=== PATIENT | female | born 1970 | race Caucasian/White ===

== ENCOUNTER 2019-07-16 10:38 | Outpatient (CLI) | payer SELFPAY ==
[2019-07-17 21:05] LABS: COVID-19 RT-PCR UVMMC Result Negative (Negative)
== END 2019-07-16 10:58 ==
PROVIDERS: PCP Nurse Practitioner; Visit Provider Family Medicine
DX: R05 Cough (principal); Z03.818 Encounter for observation for suspected exposure to other biological agents ruled out
CPT/HCPCS: U0003

== ENCOUNTER 2019-11-26 21:39 | Outpatient (REF) | payer SELFPAY ==
[2019-11-29 00:07] LABS: COVID-19 RT-PCR Result NEGATIVE (Negative)
== END 2019-11-26 21:59 ==
LOC: NCHCN 21:39
PROVIDERS: PCP Nurse Practitioner; Visit Provider Family Medicine
DX: B34.9 Viral infection, unspecified (principal); Z11.59 Encounter for screening for other viral diseases
CPT/HCPCS: U0003

== ENCOUNTER 2020-04-29 04:02 | Outpatient (CLI) | payer MEDICAID, SELFPAY ==
[2020-04-29 08:57] LABS: Abs Immature Grans 0.04 10^3/uL (0.0-0.06); Absolute Basophil Count 0.09 10^3/uL (0.0-0.2); Absolute Eosinophil Count 0.34 10^3/uL (0.0-0.7); Absolute Lymphocyte Count 1.48 10^3/uL (1.2-3.4); Absolute Neutrophil Count 5.13 10^3/uL (1.2-6.7); Basophils % 1.2; Eosinophils % 4.5; HCT 34.1 % (36.0-46.0); HGB 9.9 g/dL (11.2-15.7); Immature Grans % 0.5; Lymphocytes % 19.5; MCH 24.7 pg (27.0-33.0); MPV 9.4 fL (8.0-11.0); Monocytes % 6.6; Neutrophils % 67.7; Nucleated RBC 0 %; RBC 4.01 10^6/uL (3.93-5.22); RDW 23.4 % (11.7-14.6); RDW-SD 72.6 fL; WBC 7.58 10^3/uL (4.4-10.8)
[2020-04-29 09:13] LABS: Hemoglobin A1C 5.8 % (<5.7)
[2020-04-29 09:20] LABS: Anisocytosis 2+; Diff Comment Diff Reviewed; Hypochromasia 1+; Platelet Count 384 10^3/uL (130-400); Polychromasia Present
[2020-04-29 09:21] LABS: Poikilocytes 1+
[2020-04-29 09:47] LABS: Total Iron Binding Capacity 435 ug/dL (250-450)
[2020-04-29 10:19] LABS: ALT 17 U/L (14-59); AST 10 U/L (15-37); Albumin 3.4 g/dL (3.4-5.0); Alkaline Phosphatase 80 U/L (46-116); Anion Gap 9.3 mmol/L (3-11); BUN 9 mg/dL (7-18); Bilirubin, Total 0.2 mg/dL (0.2-1.0); CO2 26.7 mmol/L (21.0-32.0); CREATININE 0.7 mg/dL (0.55-1.02); Calculated LDL 165 mg/dL (<100); Chloride 101 mmol/L (98-107); Cholesterol 228 mg/dL (<200); Ferritin 28 ng/mL (8-252); Glucose 104 mg/dL (74-106); HDL Cholesterol 43 mg/dL (40-60); Sodium 137 mmol/L (136-145); TSH (W/Ref FT4) 2.83 uIU/mL (0.36-3.74); Total Protein 7.2 g/dL (6.4-8.2); Triglyceride 103 mg/dL (<150); Vitamin B12 414 pg/mL (193-986)
== END 2020-04-29 04:03 | disposition home or self-care (01) ==
LOC: LBO 04:02
PROVIDERS: PCP Nurse Practitioner; Visit Provider Nurse Practitioner
DX: D64.9 Anemia, unspecified (principal); I10 Essential (primary) hypertension; R73.01 Impaired fasting glucose; E66.9 Obesity, unspecified; N93.8 Other specified abnormal uterine and vaginal bleeding
CPT/HCPCS: 36415; 80053; 80061; 82607; 82728; 83036; 83550; 84443; 85025

== ENCOUNTER 2020-05-11 03:24 | Outpatient (CLI) | payer MEDICAID, SELFPAY ==
[2020-05-12 14:30] LABS: COVID-19 RT-PCR UVMMC Result Positive (Negative)
== END 2020-05-11 03:25 | disposition home or self-care (01) ==
LOC: LBO 03:25
PROVIDERS: PCP Nurse Practitioner; Visit Provider Nurse Practitioner
DX: Z20.822 Contact with and (suspected) exposure to COVID-19 (principal)
CPT/HCPCS: U0003

== ENCOUNTER 2021-03-16 10:13 | Emergency (ER) | payer MEDICAID, SELFPAY ==
[2021-03-16] VITALS (16 sets, daily range): BP systolic 131–194; BP diastolic 96–106; PULSE 81–102; RESP 14–29; TEMP 37–37.5; O2SAT 92–100
--- NOTE | 2021-03-16 10:15 | RT.EKG_ITS ---
APPROVED REPORT Exam: Resting ECG Reason for Exam: edema Patient Location: E HR:92 bpm ECG Measurements Heart Rate 92 AXIS SC 165 P 65 QRSd 93 QRS 57 QT 404 T 77 QTc 500 Conclusion Sinus rhythm...normal P axis Nonspecific T abnrm, anterolateral leads...T <-0.10mV, I aVL V2-V6
[2021-03-16] MEDS: Albuterol/Ipratropium 3 ML UPD VIAL (10:30)
--- NOTE | 2021-03-16 10:30 | DI.RAD_ITS ---
Exam(s) XR PORTABLE CHEST AP EXAM: XR PORTABLE CHEST AP CLINICAL HISTORY: cough, congestion TECHNIQUE: 2D digital imaging was performed of the chest. One image was obtained. An AP view was ob tained. COMPARISON: CR PORTABLE CHEST ONE VIEW from 08/02/2017 FINDINGS: MEDIASTINUM: Normal. HEART: Normal. PULMONARY VASCULATURE: Normal. LUNGS: Clear. PLEURAL SPACE: No pleural effusion or pneumothorax. BONE:Within normal limits for the patient's age. OTHER FINDINGS:Normal. IMPRESSION: No acute pulmonary findings. DATA REPOSITORY: RADIATION DOSE DELIVERED:
--- NOTE | 2021-03-16 10:39 | ED.GENADUL_ITS ---
Discharge Plan Disposition Patient Disposition: HOME Condition: Improving Discharge Details Clinical Impression: Peripheral edema Primary Care Provider: Paula Barboza ED Provider: Isiah Gong Home Meds and New Rx's Prescriptions: New furosemide 20 mg tablet 20 mg PO Q OTHER DAY Qty: 3 RF: 0 (DME) nebulizers Misc See Rx Instructions .ROUTE .MEDSUPPLY Qty: 1 RF: 0 albuterol sulfate 5 mg/mL solution for nebulization 5 mg inhalation Q6H PRNQty: 20 RF: 0 Continued albuterol sulfate [ProAir HFA] 90 mcg/actuation HFA aerosol inhaler 2 puff Inhalation Q4H PRN Qty: 18 RF: 12 citalopram 40 mg tablet 40 mg PO DAILY Qty: 90 RF: 3 lisinopril 20 mg tablet 20 mg PO DAILY Qty: 90 RF: 3 cetirizine 10 mg tablet 10 mg PO DAILY PRN (Reason: allergy symptoms) Qty: 30 RF: 3 quetiapine 50 mg tablet See Rx Instructions PO TID PRN (Reason: withdrawal symptoms) Qty: 90 RF: 0 clobetasol-emollient 15 GM cream 1 applic Topical DAILY PRNQty: 60 RF: 2 iron 18 MG tablet 18 mg PO DAILY RF: 0 propranolol 20 mg tablet 20 mg PO BID Qty: 180 RF: 0 quetiapine 100 mg tablet 100 mg PO QHS Qty: 90 RF: 0 (DME) POCKET CHAMBER Spacer See Rx Instructions .ROUTE .MEDSUPPLY Qty: 1 RF: 0 Discharge Instructions Additional Instructions: Your work-up in the emergency department included blood work, EKG, chest x-ray, and CT scan of the chest and abdomen. We discussed admission to the hospital which you have deferred. Return at any time for reevaluation. Take medications as prescribed. I will prescribe you 3 doses of furosemide/Lasix be taken every other day. You should increase potassium- containing foods in the diet such as bananas, strawberries, tree nuts including cashews and almonds as these will offset a slight loss of potassium from diuresis. Elevate the legs above the level of the heart while at rest at home. We will ask our care management team to arrange a follow-up for you with Paula Barboza in clinic. Please return to the emergency room for any acute concerns. Medical Decision Making 50-year-old female presents from home on referral from primary care. She has had 1 week of cough that she states is chronic, new feeling of congestion, shortness of breath, that is associated with symmetric lower extremity edema over 1 week's time and 20 pound weight gain. She denies any fever, she has not had chest pain. She arrives to ER hypertensive, or resting heart rate approximately 100, oxygenating 92% on room air with coarse rales out the lung field. Differential includes pulmonary edema/fluid overload, renal failure, AR, PE, pneumonitis. Patient IV access established, she was placed on a manager cardiac cath, screening EKG obtained she is referred for laboratories and portable chest x-ray. Chest x-ray per Dr. Lemus shows no acute disease. Patient's diagnostic laboratories are concerning. She shows evidence of liver congestion with AST 124, ALT 90, total of 1.3. Her BNP is 6000, troponin negative. D-dimer is elevated. Renal function normal. Given my concern for acute cor pulmonale, CT of the chest obtained to rule out PE ordered. This shows no evidence of acute finding. Please see the formal report. The patient did also have left knee x-ray which was unremarkable Discussed with the patient admission for further work-up of new onset peripheral edema. She declines this at this time. I do feel she demonstrates decision- making capacity and acknowledges the risk of worsening condition and possible . Patient given Lasix and observed in the ER on a manager cardiac cath with repeat troponin and chest x-ray obtained. Patient with positive diuresis. Repeat troponin negative. Patient again offered admission which she declines. I will place her on q. OD Lasix x3 doses. She will elevate the legs above level heart. We will ask career development counselor to arrange a follow-up for her in primary care clinic. I do feel she ought to have a follow-up echocardiogram. She understands indications to return to the ER HPI General Mode of arrival: ambulatory . Date/Time Provider Initiated Documentation: 03/16/21 10:19 . Limitations to Documentation: no limitations . Information obtained by: patient . History of Present Illness 50 year old F presents to the emergency department with the chief complaint of Short of breath, leg edema, 20 pound weight gain in 1 week, described as moderate, Quality is described as constant, and is localized to the chest. Patient reports no radiation. Patient started experiencing this day(s) and it has been constant. No relieving factors improve symptom(s), No exacerbating factors reported . Patient notes cough, shortness of breath and other (Bilateral lower extremity edema and weight gain); denies chest pain. Patient did receive the following treatments prior to arrival, none Related Data Home Medications Medication Instructions Recorded Confirmed clobetasol-emollient 1 applic TOPICAL DAILY PRN #60 gm 12/08/16 iron 18 mg PO DAILY 05/25/17 albuterol sulfate 90 mcg/actuation 2 puff INHALATION Q4H PRN #18 g 04/14/20 04/14/20 aerosol inhaler cetirizine 10 mg tablet 10 mg PO DAILY PRN #30 tab 04/14/20 04/14/20 citalopram 40 mg tablet 40 mg PO DAILY #90 tab 04/14/20 04/14/20 lisinopril 20 mg tablet 20 mg PO DAILY #90 tab-cap 04/14/20 04/14/20 quetiapine 50 mg tablet See Rx Instructions PO TID PRN #90 06/08/20 06/08/20 tab propranolol 20 mg tablet 20 mg PO BID #180 tab 08/19/20 quetiapine 100 mg tablet 100 mg PO QHS #90 tab 08/19/20 inhalational spacing device #1 ea 09/28/20 albuterol sulfate 5 mg INHALATION Q6H PRN #20 ml 03/16/21 furosemide 20 mg PO Q OTHER DAY #3 tab 03/16/21 nebulizers #1 ea 03/16/21 Previous Rx's Medication Instructions Recorded albuterol sulfate 90 mcg/actuation 2 puff INHALATION Q4H PRN #18 g 04/14/20 aerosol inhaler cetirizine 10 mg tablet 10 mg PO DAILY PRN #30 tab 04/14/20 citalopram 40 mg tablet 40 mg PO DAILY #90 tab 04/14/20 lisinopril 20 mg tablet 20 mg PO DAILY #90 tab-cap 04/14/20 quetiapine 50 mg tablet See Rx Instructions PO TID PRN #90 06/08/20 tab propranolol 20 mg tablet 20 mg PO BID #180 tab 08/19/20 quetiapine 100 mg tablet 100 mg PO QHS #90 tab 08/19/20 inhalational spacing device #1 ea 09/28/20 albuterol sulfate 5 mg INHALATION Q6H PRN #20 ml 03/16/21 furosemide 20 mg PO Q OTHER DAY #3 tab 03/16/21 nebulizers #1 ea 03/16/21 Allergies Allergy/AdvReac Type Severity Reaction Status Date / Time oxycodone AdvReac Unknown TERRIBLE Verified 03/16/21 11:13 DREAMS General Stated Complaint: SOB ALISTAIR: 2 Review of Systems Narrative: States she has a chronic cough from smoking that is unchanged. Albuterol seems to not be helping at home. Immunized against COVID-19 x3. Den ies chest pain. No recent illness. Reports twisting her left knee with resultant swelling. See HPI. 8 systems reviewed and otherwise negative PFSH All Active Problems (Updated 03/16/21 @ 13:29 by Isiah Gong MD) Peripheral edema (Acute) Heavy menses (Acute) Encounter for screening colonoscopy (Acute) Anemia (Chronic) Anxiety (Chronic) DUB (dysfunctional uterine bleeding) (Acute) HTN (hypertension), benign (Acute) Depression (Chronic 04/03/15) Sertaline in the past with good relief of sx but then developed intolerable adverse rxns (nausea, flushing) Started on venlafaxine 03/2015 PHQ9 score = 9, indicating mild depression 03/2015 Chronic pain (Acute 02/20/09) chronic tramadol rx, back pain, sciatica despite LS surg 2009. Impaired fasting blood sugar (Acute 08/01/05) Obesity, unspecified (Acute 05/31/11) Atypical squamous cells of undetermined significance (ASC-US) on cervical Pap smear (Acute 08/05/09) ASCUS 08/05/09; 05/31/2011 Spinal stenosis of lumbar region (Acute 01/11/10) LS spine surg; Dr Sebastian Walker Tobacco dependence (Acute 08/01/05) Medical History Spinal stenosis Lumbar region Tobacco use disorder Surgical History Back surgery L5-S1 decompression 2009 Family History Mother , lung cancer at age 50. No problems noted. Father , MVA No problems noted. Other Lung cancer Social History Smoking risk assessment performed?: No Drug use: Never Substance use type: does not use Do you feel safe at home: Yes Do you feel safe in your relationship?: Yes Exam Narrative Exam Narrative: GEN: awake, alert, oriented 3. Pleasant, well groomed, interactive. HEAD: Normocephalic, atraumatic ENT: Mucous membranes moist, oropharynx unremarkable, External ear exam unremarkable EYES: PERRL, EOMI NECK: Full ROM, no JOSE ANTONIO, no menigismus CHEST/RESP: Nontender, coarse rales throughout CARDIOVASCULAR: Regular and borderline tachycardia, no murmur, rub marina. 2+ Rad pulse bilateral ABDOMEN: Soft, nontender, no mass. +Bowel sounds EXT: Full ROM, 2-3+ tense edema bilateral lower extremity Neuro: Grossly normal neurologic exam, conversant, interactive. Psych: Speech fluent, thoughts congruent, affect normal Course Vital Signs Vital signs: Vital Signs Temperature 37.5 C 03/16/21 10:16 Pulse 102 H 03/16/21 10:16 Respiratory Rate 22 03/16/21 10:16 Blood Pressure 194/105 H 03/16/21 10:16 Pulse Oximetry 92 03/16/21 10:16 Temperature 37.5 C 03/16/21 10:16 Temperature Source Temporal Artery Scan 03/16/21 10:16 Pulse 102 H 03/16/21 10:16 Respiratory Rate 22 03/16/21 10:30 Blood Pressure 194/105 H 03/16/21 10:16 Blood Pressure Position Sitting 03/16/21 10:16 Pulse Oximetry 92 03/16/21 10:30 Oxygen Delivery Method Room Air 03/16/21 10:16 Oxygen Flow Rate 0 03/16/21 10:16 Pain Level 9 03/16/21 10:16
[2021-03-16 10:59] LABS: Source Nasopharynx
[2021-03-16 11:00] LABS: Abs Immature Grans 0.08 10^3/uL (0.0-0.06); Absolute Basophil Count 0.06 10^3/uL (0.0-0.2); Absolute Eosinophil Count 0.17 10^3/uL (0.0-0.7); Absolute Lymphocyte Count 1.04 10^3/uL (1.2-3.4); Absolute Monocyte Count 0.82 10^3/uL (0.1-0.8); Absolute Neutrophil Count 7.68 10^3/uL (1.2-6.7); Basophils % 0.6; Eosinophils % 1.7; HCT 31.7 % (36.0-46.0); HGB 9.4 g/dL (11.2-15.7); Immature Grans % 0.8; Lymphocytes % 10.6; MCH 29.2 pg (27.0-33.0); MCHC 29.7 % (32.0-36.0); MCV 98.4 fL (80-95); Monocytes % 8.3; Nucleated RBC 0 %; Platelet Count 381 10^3/uL (130-400); RBC 3.22 10^6/uL (3.93-5.22); RDW 19.2 % (11.7-14.6); WBC 9.85 10^3/uL (4.4-10.8)
[2021-03-16 11:20] LABS: ALT 90 U/L (14-59); AST 124 U/L (15-37); Alkaline Phosphatase 149 U/L (46-116); Anion Gap 7.1 mmol/L (3-11); BUN 15 mg/dL (7-18); Bilirubin, Total 1.3 mg/dL (0.2-1.0); CO2 31.9 mmol/L (21.0-32.0); CREATININE 0.6 mg/dL (0.55-1.02); Calcium 8.2 mg/dL (8.5-10.1); Chloride 100 mmol/L (98-107); Glucose 119 mg/dL (74-106); Magnesium 1.3 mg/dL (1.8-2.4); NT-proBNP 6014 pg/mL (<300); Potassium 3.5 mmol/L (3.5-5.1); Sodium 139 mmol/L (136-145); Total Protein 7.6 g/dL (6.4-8.2); Troponin I < 50 ng/L (<or=60)
--- NOTE | 2021-03-16 11:30 | DI.CT_ITS ---
Exam(s) CT CHEST PE ABD PELVIS W EXAM: CT CHEST PE ABD PELVIS W CLINICAL HISTORY: Acute R heart failure, SOB, elev liver enzymes. TECHNIQUE: Imaging Protocol: Axial CT angiography was performed with multi-slice acquisition and mu lti-planar and/or 3D reconstructions. CONTRAST MATERIAL: Intravenous: Omnipaque 350 Contrast volume:77 mL COMPARISON: CT ABD PELVIS WITH CONTRAST from 07/09/2010 FINDINGS: CHEST: Tracheobronchial tree: Patent where visualized. Pulmonary parenchyma: No consolidation or dominant measurable mass. No architectural distortion. Pulmonary Arteries: No evidence of filling defect to suggest pulmonary emboli. Mediastinum and Richelle: No dominant adenopathy or fluid collection. The esophagus is unremarkable. Visualized thyroid gland: Unremarkable. Pleura: No effusion or pneumothorax. Heart: The heart is not dilated. Mild coronary artery calcification. No pericardial effusion. Aorta: Thoracic aorta non-dilated. No evidence of dissection. Bones: Within normal limits for the patient's age. Soft tissues: Unremarkable. ABDOMEN: Liver: There is diffuse fatty infiltration of the liver. No measurable mass. The liver measures 19 c m long. Portal, Superior Mesenteric, and Splenic Veins: Unremarkable. Gallbladder and Biliary Tract: No radiodense calculus or dilation. Pancreas: Normal density, no abnormal calcifications or inflammatory process. Spleen: Normal. Adrenals: No masses seen. Kidneys: Normal size, contour and axis. No radiodense stones or obstructive uropathy. No masses seen. Abdominal Aorta: Abdominal portion non-dilated. Atherosclerosis. Bowel: No obstruction or bowel wall thickening. Appendix is unremarkable. Peritoneal Cavity: No ascites, collection or mesenteric inflammatory response. No free air. Lymph Nodes: Within normal limits. Bones: Within normal limits for the patient's age. Soft Tissues: Unremarkable. PELVIS: Bladder: Symmetric distention, no gross wall thickening. Reproductive Organs: Uterine masses are seen including a 2.9 x 2.6 cm mass arising from the fundus of the uterus. These are most suggestive of uterine fibroids. Lymph Nodes: Within normal limits. Bones: Within normal limits. IMPRESSION: 1. No evidence pulmonary embolism, thoracic aortic dissection or aneurysm. 2. No acute pulmonary process. 3. No acute abdominal or pelvic process. 4. Results of this exam have been verbally communicated with provider. RADIATION DOSE DELIVERED: 1,879.89mGy.cm Total DLP DATA REPOSITORY: All CT scans at this facility are submitted to the National Radiology Data Registry (NRDR) Dose Index Registry (DIR) with the [employer] ([employer]). RADIATION OPTIMIZATION: All CT scans at this facility use at least one of these dose optimization te chniques: automated exposure control; mA and/or kV adjustment per patient size (includes targeted exa ms where dose is matched to clinical indication); or iterative reconstruction.
[2021-03-16 11:41] LABS: D-Dimer 582 ng/mlFEU (<500)
[2021-03-16 12:00] LABS: COVID-19 PCR Negative (Negative); Influenza A PCR Negative (Negative); Influenza B PCR Negative (Negative); RSV PCR Negative (Negative)
[2021-03-16] MEDS: MAGNESIUM SULFATE 2 GM/50 ML BAG IVPB (12:25)
[2021-03-16] MEDS: Omnipaque 350 MG/ML 100 ML BTL IJ (13:02)
--- NOTE | 2021-03-16 13:15 | RT.EKG_ITS ---
APPROVED REPORT Exam: Resting ECG Reason for Exam: 2nd ekg Patient Location: E HR:93 bpm ECG Measurements Heart Rate 93 AXIS MI 132 P -4 QRSd 97 QRS 53 QT 414 T 76 QTc 514 Conclusion Sinus rhythm...normal P axis, V-rate 60- 99 Nonspecific T abnrm, anterolateral leads...T <-0.10mV, I aVL V2-V6 Prolonged QT interval...QTc >510mS
--- NOTE | 2021-03-16 13:24 | DI.RAD_ITS ---
Exam(s) XR KNEE LT 3V AP,LAT,ACE EXAM: XR KNEE LT 3V AP,LAT,ACE CLINICAL HISTORY: pain after twisting. TECHNIQUE: 2D digital imaging was performed of the left knee. Four images were obtained. AP, PA an d lateral views were obtained. COMPARISON: No exams were available for comparison FINDINGS: BONES: No acute fracture is present. No bony destructive lesion is seen. JOINTS: The knee is normally aligned. No joint effusion is seen. SOFT TISSUE: Mild generalized soft tissue swelling around the knee. IMPRESSION: 1. No acute fracture or dislocation. 2. Soft tissue swelling around the knee. DATA REPOSITORY: RADIATION DOSE DELIVERED:
[2021-03-16] MEDS: Furosemide 20 MG/2 ML VIAL IVP (13:45)
[2021-03-16 14:23] LABS: Troponin I < 50 ng/L (<or=60)
--- NOTE | 2021-03-16 18:21 | NUR.NOTE ---
Nursing Note: referrl to cm for pcp follow up.
== END 2021-03-16 15:10 | disposition home or self-care (01) ==
PROVIDERS: Emergency Provider Emergency Medicine; PCP Nurse Practitioner
DX: R60.0 Localized edema (principal); R05.3 Chronic cough; R06.02 Shortness of breath; R63.5 Abnormal weight gain; Z20.822 Contact with and (suspected) exposure to COVID-19; M25.562 Pain in left knee
CPT/HCPCS: 36415; 71275; 73562; 74177; 80053; 87637; 93005; 94640; 96374; 96375; 99284; 99285; 71045; 83735; 83880; 84484; 85025; 85379; 93010; J1941; J3490; J7620

== ENCOUNTER 2021-04-05 16:10 | Emergency (ER) | payer MEDICAID, SELFPAY ==
[2021-04-05 16:17] VITALS: BP 98/53; PULSE 82; RESP 16; TEMP 36.5; O2SAT 97
--- NOTE | 2021-04-05 16:33 | ED.GENADUL_ITS ---
Discharge Plan Disposition Patient Disposition: HOME Condition: Stable Discharge Details Clinical Impression: Bursitis, prepatellar, left Primary Care Provider: Paula Barboza ED Provider: Pushpa Sanchez Home Meds and New Rx's Prescriptions: Continued albuterol sulfate [ProAir HFA] 90 mcg/actuation HFA aerosol inhaler 2 puff Inhalation Q4H PRN Qty: 18 12RF Rx Instructions: 2 puffs QID PRN. quetiapine 100 mg tablet 100 mg PO QHS Qty: 90 0RF citalopram 40 mg tablet 40 mg PO DAILY Qty: 90 3RF lisinopril 20 mg tablet 20 mg PO DAILY Qty: 90 3RF furosemide 20 mg tablet 20 mg PO Q OTHER DAY Qty: 3 0RF propranolol 20 mg tablet 20 mg PO BID Qty: 180 0RF trazodone 50 mg tablet 50 mg PO QHS PRN (Reason: sleep) Qty: 90 0RF magnesium oxide 400 mg (241.3 mg magnesium) tablet 400 mg PO DAILY Qty: 90 0RF clobetasol-emollient 15 GM cream 1 applic Topical DAILY PRNQty: 60 2RF Rx Instructions: Apply to hands PRN (DME) POCKET CHAMBER Spacer See Rx Instructions .ROUTE .MEDSUPPLY Qty: 1 0RF Rx Instructions: As directed albuterol sulfate 2.5 mg /3 mL (0.083 %) solution for nebulization 2.5 mg inhalation Q4H PRN (Reason: shortness of breath or wheezing) Qty: 180 3RF (DME) nebulizers Misc See Rx Instructions .ROUTE .MEDSUPPLY Qty: 1 0RF Rx Instructions: As directed Discharge Instructions Instructions: Knee Bursitis (ED) Additional Instructions: Your x-ray was reassuring here today. I do not see any evidence to suggest ligamentous injury in the knee. However, I am concerned that you may have bursitis as we discussed. This is inflammation of the lubricating sac in the front of your knee. Please encourage rest, ice, elevation. Tylenol and/or ibuprofen as needed for discomfort. You will likely find an anti-inflammatory such as ibuprofen offers the most improvement of your discomfort. As we discussed, I believe you would likely benefit from physical therapy as this may have been the cause of your discomfort prior to your falls as well. Attached is a referral, please call number on the top to schedule follow-up appointment. Please follow-up with primary care in 2 weeks for reevaluation. If you develop any new or worsening symptoms please seek care urgently once again. Stand Alone Forms: Physical Therapy Referral Referrals: Paula Barboza NP [Primary Care Provider] - Discharge Data Discharge Date/Time-TO BE ENTERED AT DEPARTURE: 04/05/21 18:01 Medical Decision Making Patient is a pleasant 30-year-old female presents with chief complaint of left knee pain. Patient with seen her on 03/16/2021. At that time, patient was here for lower extremity edema. She is also endorsing left knee pain at that time. She reports that the pain is chronic and has been occurring at that time, no acute fracture dislocations noted at that time. She reports that she has continued to have this chronic discomfort but it became acutely exacerbated yesterday when she fell twice landing both times on hardwood floor on her patella. She denies other injury the time of the incident. Denies direct head, loss conscious, neck, back injury. She denies any numbness or tingling. Pain is primarily in the anterior aspect of the knee. Patient is currently struggling with alcohol abuse and is reporting that she will be going to [facility] to discuss in 2 weeks once a bed becomes available. She describes having discomfort and weakness along the lateral thigh as cause of her to fall yesterday and indicates the left IT band. On exam, patient appears nontoxic. She is ambulating with an antalgic gait. Exam the left lower extremity 2+ distal pulses. Sensation is intact. She is forage motion of the hip. She did indicate IT band is area of initial discomfort nontender on palpation currently. I do not note any defect in this. Exam of the knee is significant for infrapatellar swelling with a bursitis. She does have some discomfort over the patella but no objective abnormalities appr eciated. She has full range of motion. Seems to be more comfortable in a semiflex position. Calf is soft and nontender. Full range of motion of the ankle. Maximal pain seems to be at the patellar and infrapatellar region. She is able straight leg raise without assistive. Patient also has some mild discomfort with palpation over the medial joint line. Patient is having significant discomfort time and will not tolerate ligamentous exam. We will hold off on this until patient come back from imaging. FINDINGS: Bones/joints: There is no evidence of acute fracture.There is no e vidence of malalignment or dislocation. Soft tissues: Normal. IMPRESSION: There is no evidence of acute fracture.There is no evidence of malalignment or dislocation. I discussed the above findings with the patient. Her pain is much improved after receiving p.o. Tylenol and ibuprofen. Ligamentous exam was able to be performed and found to be intact with varus and valgus as well as anterior poste rior drawer testing. Again, her pain has likely associated with bursitis. She does report that she has a history of chronic knee pain over this area further supporting this diagnosis that was likely exacerbated when he fell directly onto his knee. I encouraged rest, ice, elevation. Advised anti-inflammatories to help with discomfort. Patient does have a splint which she states is working quite well for her health and with ambulation. I did offer an alternative she did not find it sufficient but she declined at this time and would prefer to continue with the when she is been using. As this has been ongoing issue, will refer to physical therapy. Also advised that she follow-up with primary care in the next 1 to 2 weeks for reevaluation. Return precautions were discussed. All her questions and concerns were addressed and she is in agreement with this plan. [facility] General Date/Time Provider Initiated Documentation: 04/05/21 16:33 . History of Present Illness 50 year old F presents to the emergency department with the chief complaint of Left knee pain, with intensity rated at 8. Quality is described as stabbing, and is localized to the left and lower extremity. Patient reports no radiation. Patient started experiencing this day(s) (Fell yesterday) and it has been constant. improves with Immobilization improves symptom(s), Movement worsens symptoms . Patient notes no other symptoms.. Patient did receive the following treatments prior to arrival, none Related Data Home Medications Medication Instructions Recorded Confirmed clobetasol-emollient 0.05 % 1 applic TOPICAL DAILY PRN #60 gm 12/08/16 04/05/21 topical cream albuterol sulfate 90 mcg/actuation 2 puff INHALATION Q4H PRN #18 g 04/14/20 04/05/21 aerosol inhaler (ProAir HFA) inhalational spacing device #1 ea 09/28/20 04/05/21 (POCKET CHAMBER) nebulizers #1 ea 03/16/21 04/05/21 citalopram 40 mg tablet 40 mg PO DAILY #90 tab 03/24/21 04/05/21 furosemide 20 mg tablet 20 mg PO Q OTHER DAY #3 tab 03/24/21 04/05/21 lisinopril 20 mg tablet 20 mg PO DAILY #90 tab-cap 03/24/21 04/05/21 magnesium oxide 400 mg (241.3 mg 400 mg PO DAILY #90 tab 03/24/21 04/05/21 magnesium) tablet propranolol 20 mg tablet 20 mg PO BID #180 tab 03/24/21 04/05/21 quetiapine 100 mg tablet 100 mg PO QHS #90 tab 03/24/21 04/05/21 trazodone 50 mg tablet 50 mg PO QHS PRN #90 tab 03/24/21 04/05/21 albuterol sulfate 2.5 mg (3 mL) INHALATION Q4H PRN 03/30/21 04/05/21 #180 ml Previous Rx's Medication Instructions Recorded albuterol sulfate 90 mcg/actuation 2 puff INHALATION Q4H PRN #18 g 04/14/20 aerosol inhaler (ProAir HFA) inhalational spacing device #1 ea 09/28/20 (POCKET CHAMBER) nebulizers #1 ea 03/16/21 citalopram 40 mg tablet 40 mg PO DAILY #90 tab 03/24/21 furosemide 20 mg tablet 20 mg PO Q OTHER DAY #3 tab 03/24/21 lisinopril 20 mg tablet 20 mg PO DAILY #90 tab-cap 03/24/21 magnesium oxide 400 mg (241.3 mg 400 mg PO DAILY #90 tab 03/24/21 magnesium) tablet propranolol 20 mg tablet 20 mg PO BID #180 tab 03/24/21 quetiapine 100 mg tablet 100 mg PO QHS #90 tab 03/24/21 trazodone 50 mg tablet 50 mg PO QHS PRN #90 tab 03/24/21 albuterol sulfate 2.5 mg (3 mL) INHALATION Q4H PRN 03/30/21 #180 ml Allergies Allergy/AdvReac Type Severity Reaction Status Date / Time oxycodone AdvReac Unknown TERRIBLE Verified 04/05/21 16:26 DREAMS General Stated Complaint: Orthopedic ALISTAIR: 4 Review of Systems Constitutional Constitutional: Reports as per HPI, Denies chills and Denies fever(s) Cardiovascular Cardiovascular: Reports as per HPI Respiratory Respiratory: Reports as per HPI and Denies cough Musculoskeletal Musculoskeletal: Reports as per HPI and Denies tingling Integumentary/Breasts Skin/Breast: Reports as per HPI, Denies rash and Denies wounds Neurologic Neurologic: Reports as per HPI, Denies tingling and Denies paresthesias PFSH All Active Problems (Updated 04/05/21 @ 17:34 by PIPPA Kent) Bursitis, prepatellar, left (Acute) Alcohol abuse (Chronic) Peripheral edema (Acute) Heavy menses (Acute) Encounter for screening colonoscopy (Acute) Anemia (Chronic) Anxiety (Chronic) DUB (dysfunctional uterine bleeding) (Acute) HTN (hypertension), benign (Acute) Depression (Chronic 04/03/15) Sertaline in the past with good relief of sx but then developed intolerable adverse rxns (nausea, flushing) Started on venlafaxine 03/2015 PHQ9 score = 9, indicating mild depression 03/2015 Chronic pain (Acute 02/20/09) chronic tramadol rx, back pain, sciatica despite LS surg 2009. Impaired fasting blood sugar (Acute 08/01/05) Obesity, unspecified (Acute 05/31/11) Atypical squamous cells of undetermined significance (ASC-US) on cervical Pap smear (Acute 08/05/09) ASCUS 08/05/09; 05/31/2011 Spinal stenosis of lumbar region (Acute 01/11/10) LS spine surg; Dr Sebastian Walker Tobacco dependence (Acute 08/01/05) Medical History Spinal stenosis Lumbar region Tobacco use disorder Surgical History Back surgery L5-S1 decompression 2009 Family History Mother , lung cancer at age 50. No problems noted. Father , MVA No problems noted. Other Lung cancer Social History Smoking risk assessment performed?: No Drug use: Never Substance use type: does not use Do you feel safe at home: Yes Do you feel safe in your relationship?: Yes Exam Extrem General: normal to inspection, no pedal edema, no calf tenderness, abnormal ga it, no edema and no pedal edema Left lower extremity: normal to inspection, hip/thigh Details: normal to inspection and normal ROM; Negative for no tenderness, no swelling and no crepitus, knee Details: normal to inspection, tenderness Location: of the patella (prepatellar swelling, no objective trauma to patella) and of the medial joint line, swelling Location: of the infrapatellar area, normal ROM and knee ligament exam normal Details: anterior drawer test normal, posterior drawer test normal, valgus stress test normal and varus stress test normal; Negative for no ecchymosis, no crepitus and no deformity, lower leg Details: normal to inspection and no edema; Negative for no tenderness, no palpable cords and no deformity and foot (2+ distal pulses, sensation intact) Course Vital Signs Vital signs: Vital Signs Temperature 36.5 C 04/05/21 16:17 Pulse 82 04/05/21 16:17 Respiratory Rate 16 04/05/21 16:17 Blood Pressure 98/53 L 04/05/21 16:17 Pulse Oximetry 97 04/05/21 16:17 Temperature 36.5 C 04/05/21 16:17 Temperature Source Skin 04/05/21 16:17 Pulse 82 04/05/21 16:17 Respiratory Rate 16 04/05/21 16:17 Respiratory Effort 04/05/21 16:17 Blood Pressure 98/53 L 04/05/21 16:17 Blood Pressure Position Sitting 04/05/21 16:17 Pulse Oximetry 97 04/05/21 16:17 Oxygen Delivery Method Room Air 04/05/21 16:17 Oxygen Flow Rate 0 04/05/21 16:17 Pain Level 8 04/05/21 16:17 PAWSS Have you Been Recently Intoxicated or Drunk Within the Last 30 days?: Yes Have you Ever Experienced Previous Episodes of Alcohol Withdrawal?: Yes Have you ever Experienced Withdrawal Seizures?: No Have you ever Experienced Delirium Tremens(DT)s?: Yes Have you ever undergone Alcohol Rehabilitation Treatment (i.e, inpt ot outpatient treatment programs)?: Yes Have you ever Experienced Blackouts?: Yes Have you ever Combined Alcohol with other Downers within the last 90 days?: No Have you ever Combined Alcohol with any other Substance of Abuse during the last 90 days?: No Positive Blood Alcohol level on Presentation? [PCS.BAL]: No Evidence of Increased Autonomic Activity (i.e. HR>120, tremor, sweating, agitation, nausea)?: No Result: 5
--- NOTE | 2021-04-05 16:45 | DI.RAD_ITS ---
Exam(s) XR KNEE LT 4V AP,LAT,ACE,PAT EXAM: XR KNEE LT 4V AP,LAT,ACE,PAT CLINICAL HISTORY: patellar pain after fall. TECHNIQUE: 2D digital imaging was performed. COMPARISON: CR XR KNEE LT 3V AP,LAT,ACE from 03/16/2021 FINDINGS: No evidence of fracture or joint effusion. Bone density normal. No obvious degenerative changes. N o osseous lesions. IMPRESSION: No significant radiographic findings DATA REPOSITORY: RADIATION DOSE DELIVERED:
[2021-04-05] MEDS: Acetaminophen 325 MG TAB 650 MG PO (16:51)
[2021-04-05] MEDS: Ibuprofen 600 MG TAB PO (16:52)
--- NOTE | 2021-04-05 17:24 | DI.VRAD_ITS ---
PROCEDURE INFORMATION: Exam: XR Left Knee Exam date and time: 04/05/2021 4:48 PM Age: 50 years old Clinical indication: Other: Patellar pain after fall TECHNIQUE: Imaging protocol: XR Left knee. Views: 4 or more views. COMPARISON: CR XR KNEE LT 3V AP,LAT,ACE 03/16/2021 1:14 PM FINDINGS: Bones/joints: There is no evidence of acute fracture.There is no evidence of malalignment or dislocation. Soft tissues: Normal. IMPRESSION: There is no evidence of acute fracture.There is no evidence of malalignment or dislocation. Dictated and Authenticated by: Vanessa Parisi MD. Ordering:ARIANE Barrow MD
[2021-04-05 17:54] VITALS: BP 98/53; PULSE 82; RESP 16; TEMP 36.5; O2SAT 97
== END 2021-04-05 18:01 | disposition home or self-care (01) ==
PROVIDERS: Emergency Provider Physician Assistant; PCP Nurse Practitioner
DX: M70.42 Prepatellar bursitis, left knee (principal)
CPT/HCPCS: 99283; 73564

== ENCOUNTER 2021-05-24 04:21 | Outpatient (CLI) | payer MEDICAID, SELFPAY | END 2021-05-24 04:22 | disposition home or self-care (01) | LOC: LBO 04:21 | PROVIDERS: PCP Nurse Practitioner; Visit Provider Nurse Practitioner ==

== ENCOUNTER 2021-07-27 18:51 | Emergency (ER) | payer MEDICAID, SELFPAY ==
[2021-07-27 19:09] VITALS: BP 91/56; PULSE 93; RESP 18; TEMP 36.6; O2SAT 94
--- NOTE | 2021-07-27 19:30 | DI.RAD_ITS ---
Exam(s) XR KNEE LT 3V AP,LAT,ACE EXAM: XR KNEE LT 3V AP,LAT,ACE CLINICAL HISTORY: Left knee injury. TECHNIQUE: 2D digital imaging was performed. COMPARISON: CR,XR XR KNEE LT 4V AP,LAT,ACE,PAT from 04/05/2021 FINDINGS: Four views There is no evidence of fracture but there is a joint effusion noted, signifying internal derangement . No obvious degenerative changes. No osseous lesions. Bone density is age-appropriate IMPRESSION: No acute osseous findings. Joint effusion which probably signifies internal derangement. Appropriat e follow-up recommended DATA REPOSITORY: RADIATION DOSE DELIVERED:
[2021-07-27] MEDS: Ketorolac 30 MG/ML VIAL IM (19:57)
--- NOTE | 2021-07-27 20:58 | DI.VRAD_ITS ---
PROCEDURE INFORMATION: Exam: XR Left Knee Exam date and time: 07/27/2021 7:51 PM Age: 50 years old Clinical indication: Injury or trauma; Blunt trauma; Left; Injury date: 07/27/21; Injury details: Fall, knee pain, unable to bear weight TECHNIQUE: Imaging protocol: XR Left knee. Views: 3 views. COMPARISON: CR XR KNEE LT 4V AP,LAT,ACE,PAT 04/05/2021 5:19 PM FINDINGS: Bones/joints: Normal. Soft tissues: Suprapatellar joint effusion. IMPRESSION: Suprapatellar joint effusion. No visualized osseous abnormality. Dictated and Authenticated by: Rafal Lawson MD. Ordering:BIB Yeung MD
--- NOTE | 2021-07-27 20:59 | W.ED.GENAD ---
Discharge Plan Disposition Patient Disposition: HOME Condition: Stable Discharge Details Clinical Impression: Left knee sprain Primary Care Provider: Paula Barboza ED Provider: Gamal Pate Home Meds and New Rx's Prescriptions: No Action thiamine HCl (vitamin B1) 100 mg tablet 100 mg PO DAILY triamcinolone acetonide 0.1 % cream 1 applic topical DAILY trazodone 50 mg tablet 75 mg PO QHS PRN (Reason: sleep) Qty: 135 3RF quetiapine 100 mg tablet 150 mg PO QHS Qty: 135 1RF thiamine HCl (vitamin B1) 100 mg tablet 100 mg PO DAILY Qty: 90 1RF propranolol 20 mg tablet 20 mg PO BID Qty: 180 1RF magnesium oxide 400 mg (241.3 mg magnesium) tablet 400 mg PO DAILY Qty: 90 1RF acetylcysteine [NAC] 600 mg capsule 600 mg PO BID Qty: 180 1RF folic acid 1 mg tablet 1 mg PO DAILY Qty: 90 1RF hydroxyzine HCl 25 mg tablet 25 mg PO TID PRN (Reason: anxiety) Qty: 180 1RF doxepin 25 mg capsule 25 mg PO BID Qty: 180 1RF albuterol sulfate [ProAir HFA] 90 mcg/actuation HFA aerosol inhaler 2 puff Inhalation Q4H PRN Qty: 18 12RF Rx Instructions: 2 puffs QID PRN. citalopram 40 mg tablet 40 mg PO DAILY Qty: 90 3RF lisinopril 20 mg tablet 20 mg PO DAILY Qty: 90 3RF clobetasol-emollient 15 GM cream 1 applic Topical DAILY PRNQty: 60 Rx Instructions: Apply to hands PRN (DME) POCKET CHAMBER Spacer See Rx Instructions .ROUTE .MEDSUPPLY Qty: 1 0RF Rx Instructions: As directed albuterol sulfate 2.5 mg /3 mL (0.083 %) solution for nebulization 2.5 mg inhalation Q4H PRN (Reason: shortness of breath or wheezing) Qty: 180 3RF (DME) nebulizers Misc See Rx Instructions .ROUTE .MEDSUPPLY Qty: 1 0RF Rx Instructions: As directed Discharge Instructions Instructions: Knee Sprain (ED), R.I.C.E. Treatment (ED) Additional Instructions: Please continue to use crutches over the next 3 to 4 days and then you may perform weightbearing activities as tolerated. If you have any new or significant worsening of symptoms feel free to return to the emergency department for reassessment otherwise we have put in a referral to orthopedist for a recheck in their office. You may continue to use [id number] pain medication as needed for discomfort, apply ice, use the brace with any activities. Referrals: [facility] [Provider Group] (Please call their office for arrangement of your follow-up appointment) Discharge Data Discharge Date/Time-TO BE ENTERED AT DEPARTURE: 07/27/21 21:42 Medical Decision Making Patient presented emergency department chief complaint of left knee injury. She states that she was drunk/intoxicated and had a twist and fall injury to her left knee. Initially she was able to walk and ambulate and move the knee but a couple hours later knee began to swell and she had difficulty bearing weight and moving knee. Patient denies any other injury or trauma. She does state previous sprain of the knee from a work injury 3 months ago. Physical exam shows a knee effusion with most marked tenderness to palpation of the medial aspect of the knee. Patient has difficulty extending knee but can both flex and extend with painful range of motion. Due to patient's amount of pain it is difficult to perform ligamentous testing. We will plan on performing radiological imaging to rule out acute fracture but I suspect medial ligament sprain/tear. Review of radiological imaging shows no acute osseous abnormality but does show a joint effusion. We will plan on placing patient in a hinged knee brace and patient encouraged to be nonweightbearing for the next 3 to 4 days and then slowly advance activity as tolerated. Recommended follow-up with orthopedic and suggested standard conservative management of discomfort. After discussion of diagnosis and plan of care patient has no further needs, questions, or concerns and states clear understanding to return to the emergency department for any worsening symptoms. This documentation was generated using [employer] dictation system, please disregard any oddities of phrase or misspellings. HPI General Mode of arrival: ambulatory. Date/Time Provider Initiated Documentation: 07/27/21 19:14. Limitations to Documentation: no limitations. Information obtained by: patient, RN notes reviewed and old records reviewed. History of Present Illness 50 year old F presents to the emergency department with the chief complaint of Left knee injury, described as severe, with intensity rated at 10. Quality is described as aching, and is localized to the left and upper extremity. Patient reports no radiation. Patient started experiencing this day(s) (2) and it has been constant. Immobilization improves symptom(s), Movement worsens symptoms . Patient notes no other symptoms.. Patient did receive the following treatments prior to arrival, NSAID Related Data Home Medications Medication Instructions Recorded Confirmed clobetasol-emollient 0.05 % 1 applic topical DAILY PRN #60 12/08/16 04/29/21 topical cream grams albuterol sulfate 90 mcg/actuation 2 puff inhalation Q4H PRN #18 grams 04/14/20 04/29/21 aerosol inhaler (ProAir HFA) inhalational spacing device #1 ea 09/28/20 04/29/21 (POCKET CHAMBER spacer) nebulizers #1 ea 03/16/21 04/29/21 citalopram 40 mg tablet 40 mg PO DAILY #90 tabs 03/24/21 04/29/21 lisinopril 20 mg tablet 20 mg PO DAILY #90 tab-caps 03/24/21 04/29/21 albuterol sulfate 2.5 mg/3 mL 2.5 mg (3 mL) inhalation Q4H PRN 03/30/21 04/29/21 (0.083 %) solution for nebulization shortness of breath or wheezing #180 mL acetylcysteine 600 mg capsule (NAC) 600 mg PO BID #180 caps 04/29/21 04/29/21 doxepin 25 mg capsule 25 mg PO BID #180 caps 04/29/21 04/29/21 folic acid 1 mg tablet 1 mg PO DAILY #90 tabs 04/29/21 04/29/21 hydroxyzine HCl 25 mg tablet 25 mg PO TID PRN anxiety #180 tabs 04/29/21 04/29/21 magnesium oxide 400 mg (241.3 mg 400 mg PO DAILY #90 tabs 04/29/21 04/29/21 magnesium) tablet propranolol 20 mg tablet 20 mg PO BID #180 tabs 04/29/21 04/29/21 quetiapine 100 mg tablet 150 mg PO QHS #135 tabs 04/29/21 04/29/21 thiamine HCl (vitamin B1) 100 mg 100 mg PO DAILY 04/29/21 04/29/21 tablet thiamine HCl (vitamin B1) 100 mg 100 mg PO DAILY #90 tabs 04/29/21 04/29/21 tablet trazodone 50 mg tablet 75 mg PO QHS PRN sleep #135 tabs 04/29/21 04/29/21 triamcinolone acetonide 0.1 % 1 applic topical DAILY 04/29/21 04/29/21 topical cream Previous Rx's Medication Instructions Recorded albuterol sulfate 90 mcg/actuation 2 puff inhalation Q4H PRN #18 grams 04/14/20 aerosol inhaler (ProAir HFA) inhalational spacing device #1 ea 09/28/20 (POCKET CHAMBER spacer) nebulizers #1 ea 03/16/21 citalopram 40 mg tablet 40 mg PO DAILY #90 tabs 03/24/21 lisinopril 20 mg tablet 20 mg PO DAILY #90 tab-caps 03/24/21 albuterol sulfate 2.5 mg/3 mL 2.5 mg (3 mL) inhalation Q4H PRN 03/30/21 (0.083 %) solution for nebulization shortness of breath or wheezing #180 mL acetylcysteine 600 mg capsule (NAC) 600 mg PO BID #180 caps 04/29/21 doxepin 25 mg capsule 25 mg PO BID #180 caps 04/29/21 folic acid 1 mg tablet 1 mg PO DAILY #90 tabs 04/29/21 hydroxyzine HCl 25 mg tablet 25 mg PO TID PRN anxiety #180 tabs 04/29/21 magnesium oxide 400 mg (241.3 mg 400 mg PO DAILY #90 tabs 04/29/21 magnesium) tablet propranolol 20 mg tablet 20 mg PO BID #180 tabs 04/29/21 quetiapine 100 mg tablet 150 mg PO QHS #135 tabs 04/29/21 thiamine HCl (vitamin B1) 100 mg 100 mg PO DAILY #90 tabs 04/29/21 tablet trazodone 50 mg tablet 75 mg PO QHS PRN sleep #135 tabs 04/29/21 Allergies Allergy/AdvReac Type Severity Reaction Status Date / Time oxycodone AdvReac Unknown TERRIBLE Verified 07/27/21 19:16 DREAMS General Stated Complaint: Orthopedic ALISTAIR: 3 Review of Systems Constitutional Constitutional: Denies frequent falls and Denies headache(s) ENT Ears, Nose, Mouth, and Throat: Denies headache(s) Cardiovascular Cardiovascular: Denies chest pain, Denies syncope and Denies dyspnea Respiratory Respiratory: Denies dyspnea Gastrointestinal Gastrointestinal: Denies abdominal pain Musculoskeletal Musculoskeletal: Reports as per HPI, Denies numbness and Denies tingling Integumentary/Breasts Skin/Breast: Denies rash, Denies sores and Denies wounds Neurologic Neurologic: Denies syncope, Denies frequent falls, Denies headache(s), Denies numbness and Denies tingling PFSH All Active Problems Left knee sprain (Acute) Alcohol abuse (Chronic) Heavy menses (Acute) Encounter for screening colonoscopy (Acute) Anemia (Chronic) Anxiety (Chronic) DUB (dysfunctional uterine bleeding) (Acute) HTN (hypertension), benign (Acute) Depression (Chronic 04/03/15) Sertaline in the past with good relief of sx but then developed intolerable adverse rxns (nausea, flushing) Started on venlafaxine 03/2015 PHQ9 score = 9, indicating mild depression 03/2015 Chronic pain (Acute 02/20/09) chronic tramadol rx, back pain, sciatica despite LS surg 2009. Impaired fasting blood sugar (Acute 08/01/05) Obesity, unspecified (Acute 05/31/11) Atypical squamous cells of undetermined significance (ASC-US) on cervical Pap smear (Acute 08/05/09) ASCUS 08/05/09; 05/31/2011 Spinal stenosis of lumbar region (Acute 01/11/10) LS spine surg; Dr Sebastian Walker Tobacco dependence (Acute 08/01/05) Medical History Spinal stenosis Lumbar region Tobacco use disorder Surgical History Back surgery L5-S1 decompression 2009 Family History Mother , lung cancer at age 50. No problems noted. Father , MVA No problems noted. Other Lung cancer Social History Smoking/Tobacco Use Status: Current every day Tobacco Type: cigarettes Smoking risk assessment performed?: Yes Alcohol Intake: current Alcohol Intake frequency: 3 or more drinks per day Alcohol type: beer and hard liquor Drug use: Never Substance use type: does not use Do you feel safe at home: Yes Do you feel safe in your relationship?: Yes Exam Const General: cooperative and no acute distress Orientation: alert, awake and oriented x3 Resp Effort & Inspection: normal respiratory effort and able to speak in complete sentences Cardio Rate: regular rate Rhythm: regular rhythm Pulses: dorsalis pedis present Extrem General: normal exam except as noted Left lower extremity: knee Details: tenderness Location: of the medial joint line, swelling Location: of the distal upper leg Details: medially, abnormal ROM Details: pain with active ROM and pain with passive ROM and knee ligament exam abnormal (Unable to perform due to significant pain and discomfort) Course Vital Signs Vital signs: Vital Signs Temperature 36.6 C 07/27/21 19:09 Pulse 93 H 07/27/21 19:09 Respiratory Rate 18 07/27/21 19:09 Blood Pressure 91/56 L 07/27/21 19:09 Pulse Oximetry 94 07/27/21 19:09 Temperature 36.6 C 07/27/21 19:09 Temperature Source Temporal Artery Scan 07/27/21 19:09 Pulse 93 H 07/27/21 19:09 Respiratory Rate 18 07/27/21 19:09 Respiratory Effort Non-Labored 07/27/21 19:12 Blood Pressure 91/56 L 07/27/21 19:09 Blood Pressure Position Sitting 07/27/21 19:09 Pulse Oximetry 94 07/27/21 19:09 Oxygen Delivery Method Room Air 07/27/21 19:09 Oxygen Flow Rate 0 07/27/21 19:09 Pain Level 10 07/27/21 19:09 PAWSS Have you Been Recently Intoxicated or Drunk Within the Last 30 days?: Yes Have you Ever Experienced Previous Episodes of Alcohol Withdrawal?: Yes Have you ever Experienced Withdrawal Seizures?: No Have you ever Experienced Delirium Tremens(DT)s?: No Have you ever undergone Alcohol Rehabilitation Treatment (i.e, inpt ot outpatient treatment programs)?: Yes Have you ever Experienced Blackouts?: No Have you ever Combined Alcohol with other Downers within the last 90 days?: No Have you ever Combined Alcohol with any other Substance of Abuse during the last 90 days?: No Positive Blood Alcohol level on Presentation? [PCS.BAL]: No Evidence of Increased Autonomic Activity (i.e. HR>120, tremor, sweating, agitation, nausea)?: No Result: 3
== END 2021-07-27 21:42 | disposition home or self-care (01) ==
PROVIDERS: Emergency Provider Nurse Practitioner Family; PCP Nurse Practitioner
DX: S83.8X2A Sprain of other specified parts of left knee, initial encounter (principal); X50.1XXA Overexertion from prolonged static or awkward postures, initial encounter
CPT/HCPCS: 29505; 73562; 99283; J1885

== ENCOUNTER 2021-11-12 14:59 | Outpatient (REF) | payer MEDICAID, SELFPAY ==
[2021-11-12 13:28] LABS: Anion Gap 14.8 mmol/L (3-11); BUN 22 mg/dL (7-18); CO2 21.2 mmol/L (21.0-32.0); CREATININE 1.4 mg/dL (0.55-1.02); Calcium 9.1 mg/dL (8.5-10.1); Chloride 103 mmol/L (98-107); Estimated GFR 44.99 (mL/min/1.73m2); Glucose 108 mg/dL (74-106); Magnesium 1.7 mg/dL (1.8-2.4); NT-proBNP 405 pg/mL (<300); Potassium 4.5 mmol/L (3.5-5.1); Sodium 139 mmol/L (136-145)
== END 2021-11-12 15:00 | disposition home or self-care (01) ==
LOC: LBN 14:59
PROVIDERS: PCP Nurse Practitioner; Visit Provider Physician Assistant
DX: I10 Essential (primary) hypertension (principal); R05.8 Other specified cough; R06.2 Wheezing; R42 Dizziness and giddiness
CPT/HCPCS: 80048; 83735; 83880

== ENCOUNTER 2022-08-06 16:09 | Emergency (ER) | payer MEDICAID, SELFPAY ==
[2022-08-06] VITALS (17 sets, daily range): BP systolic 107–108; BP diastolic 67–69; PULSE 78–88; RESP 15–18; TEMP 36.9; O2SAT 87–100
--- NOTE | 2022-08-06 16:15 | DI.CT_ITS ---
Exam(s) CT CHEST/ABD/PEL W EXAM: CT CHEST/ABD/PEL W CLINICAL HISTORY: intoxicated, AMS, found on floor. TECHNIQUE: Imaging Protocol: Axial computed tomography images with coronal and sagittal reformatted images were created and reviewed CONTRAST MATERIAL: Intravenous: Omnipaque 350 Contrast volume:100 ml Oral: None COMPARISON: CT CT CHEST PE ABD PELVIS W from 03/16/2021 FINDINGS: CHEST: LUNGS: No pulmonary infiltrates nor pleural effusions. No lung contusion. No pneumothorax. No find ings in the trachea and mainstem bronchi.. MEDIASTINUM: No sternal fracture. Nor mediastinal hematoma. No incidental hilar nor mediastinal nor subcarinal adenopathy. Partially visualized thyroid unremarkable. CARDIAC: Heart size is normal. There is no pericardial effusion.Thoracic aorta unremarkable. OSSEOUS: There are multiple left-sided rib fractures.. These were not evident on the prior CT scan o f February 2021. These involve the posterior aspect of the left 9th, 10th, 11th, and 12th ribs. The 9th and 10th rib fractures are displaced and acute appearing. The 11th and 12th rib fractures are pr obably subacute. There are no transverse process fractures.. ABDOMEN: There is no ascites. LIVER: Liver is intact with no lacerations. No lesions. No intrahepatic duct dilatation. GALLBLADDER/BILIARY: No obvious gallbladder pathology. CBD is not dilated. PANCREAS: No evidence of pancreatic mass nor dilatation of the pancreatic duct. SPLEEN: There is a prominent subcapsular hematoma in the spleen which is intimately associated with a laceration in the antro inferior aspect of the spleen, this laceration measuring 2 cm length. The s ubcapsular hematoma in the spleen measures 9 cm by 3.8 cm wide by cephalocaudal length of 9 cm. An t here is embolization coil material noted in the splenic artery. Splenic and portal veins are patent. ADRENALS: There are no significant adrenal masses. KIDNEYS: No evidence of renal laceration or subcapsular hematomas.. No cysts nor calculi nor solid l esions. No hydronephrosis. ABDOMINAL AORTA: Intact. No dissection. No aneurysm. Iliac arteries intact. LYMPH NODES: There is no retroperitoneal nor paraaortic adenopathy. ABDOMINAL WALL: No evidence of significant anterior abdominal wall nor inguinal hernia. GI: No evidence of mesenteric nor bowel wall hematoma. No bowel obstruction. No free air. PELVIS: LYMPH NODES: There is no intrapelvic nor inguinal adenopathy. GI: No evidence of appendicitis.No evidence of sigmoid diverticulitis. URINARY BLADDER: No calculi nor masses evident REPRODUCTIVE: Multiple uterine fibroids are noted. OSSEOUS: No intrapelvic fractures. SI joints appear unremarkable. No compression fractures. No sac ral fracture. IMPRESSION: 1. There is a prominent subcapsular hematoma in the spleen which is associated with a 2 cm inferior s plenic laceration. I suspect that this may not be acute as there is no surrounding free fluid and th ere is embolization material noted in the splenic artery. 2. There are fractures of the posterior aspect of the left 9th, 10th, 11th, and 12th ribs which were not evident in February 2021 and which are both displaced and acute appearing (ribs 9 and 10) as well as subacute appearing (11th and 12th ribs). 3. There are multiple uterine fibroids, including subserosal and pedunculated. Follow-up ultrasound recommended. There do not appear to be obvious ovarian masses. There is no free fluid in the abdome n and pelvis. First read by [facility]. RADIATION DOSE DELIVERED: 1,175.83mGy.cm Total DLP DATA REPOSITORY: All CT scans at this facility are submitted to the National Radiology Data Registry (NRDR) Dose Index Registry (DIR) with the [employer] ([employer]). RADIATION OPTIMIZATION: All CT scans at this facility use at least one of these dose optimization te chniques: automated exposure control; mA and/or kV adjustment per patient size (includes targeted exa ms where dose is matched to clinical indication); or iterative reconstruction.
--- NOTE | 2022-08-06 16:15 | DI.CT_ITS ---
Exam(s) CT HEAD CERVICAL SPINE WO EXAM: CT HEAD CERVICAL SPINE WO CLINICAL HISTORY: intoxicated, AMS, found on floor. TECHNIQUE: Imaging Protocol: Axial computed tomography images with coronal and sagittal reformatted images were created and reviewed COMPARISON: CT HEAD WITHOUT CONTRAST from 08/02/2017 FINDINGS: BRAIN: Small left supraorbital-left Kinney scalp hematoma. There are no skull fractures nor fluid in the visualized paranasal sinuses. There is a small extra-axial hyperdense focus in the high right convexity measuring approximately 6 x 5 mm, not previously present in 2018. Possible interval development of small meningioma but cannot exclude small focus of extra-axial hemorrhage. Recommend repeat scan in 24 hours, earlier if clinica lly indicated. CERVICAL SPINE: There is no evidence of fracture nor listhesis. No significant prevertebral soft tissue swelling. Moderate disc space narrowing evident at C5-6 level. No significant facet arthropathy There is no significant facet joint malalignment. No significant osseous lesions evident. IMPRESSION: Left supraorbital scalp hematoma. No skull fracture but small hyperdense extra-axial focus over the high right convexity which was not evident in 2018 and either represents interval development of smal l meningioma or small area of extra-axial hemorrhage at this level. Recommend repeat scan in 24 hour s, earlier if clinically indicated. No evidence of cervical spine fracture, malalignment, nor acute compromise of the cervical spinal can al. First read by [facility]. RADIATION DOSE DELIVERED: 1,519.21mGy.cm Total DLP DATA REPOSITORY: All CT scans at this facility are submitted to the National Radiology Data Registry (NRDR) Dose Index Registry (DIR) with the [employer] ([employer]). RADIATION OPTIMIZATION: All CT scans at this facility use at least one of these dose optimization te chniques: automated exposure control; mA and/or kV adjustment per patient size (includes targeted exa ms where dose is matched to clinical indication); or iterative reconstruction.
--- NOTE | 2022-08-06 16:16 | W.ED.GENAD ---
Discharge Plan Disposition Patient Disposition: Transfer-Acute Inpatient Care Specific Acute Inpt Facility: [facility] Condition: Stable Discharge Details Clinical Impression: SDH (subdural hematoma), Multiple rib fractures, Alcohol intoxication Primary Care Provider: Paula Barboza ED Provider: Elio Navarrete [place] Meds and New Rx's Prescriptions: No Action thiamine HCl (vitamin B1) 100 mg tablet 100 mg PO DAILY triamcinolone acetonide 0.1 % cream 1 applic topical DAILY thiamine HCl (vitamin B1) 100 mg tablet 100 mg PO DAILY Qty: 90 1RF magnesium oxide 400 mg (241.3 mg magnesium) tablet 400 mg PO DAILY Qty: 90 1RF folic acid 1 mg tablet 1 mg PO DAILY Qty: 90 1RF hydroxyzine HCl 25 mg tablet 25 mg PO TID PRN (Reason: anxiety) Qty: 180 1RF hydrocodone-acetaminophen 5-325 mg tablet 1 tab PO TID MDD 15mg PRN (Reason: pain) Qty: 21 0RF methocarbamol 500 mg tablet 500 mg PO BID PRN (Reason: rib pain) Qty: 20 0RF doxepin 25 mg capsule 25 mg PO BID Qty: 60 0RF lisinopril 10 mg tablet 10 mg PO DAILY Qty: 90 0RF propranolol 20 mg tablet 20 mg PO BID Qty: 180 1RF quetiapine 100 mg tablet See Rx Instructions .ROUTE .COMPLEX Qty: 135 0RF Dose Instruction: TAKE 1 AND 1/2 TABLETS BY MOUTH AT BEDTIME Rx Instructions: TAKE 1 AND 1/2 TABLETS BY MOUTH AT BEDTIME furosemide [Lasix] 20 mg tablet 20 mg PO DAILY Qty: 3 0RF clobetasol-emollient 15 GM cream 1 applic Topical DAILY PRNQty: 60 Rx Instructions: Apply to hands PRN (DME) POCKET CHAMBER Spacer See Rx Instructions .ROUTE .MEDSUPPLY Qty: 1 0RF Rx Instructions: As directed albuterol sulfate 2.5 mg /3 mL (0.083 %) solution for nebulization 2.5 mg inhalation Q4H PRN (Reason: shortness of breath or wheezing) Qty: 180 3RF albuterol sulfate [ProAir HFA] 90 mcg/actuation HFA aerosol inhaler 2 puff Inhalation Q4H PRN Qty: 18 12RF Rx Instructions: 2 puffs QID PRN. trazodone 50 mg tablet 75 mg PO QHS PRN (Reason: sleep) Qty: 135 0RF citalopram 40 mg tablet 40 mg PO DAILY Qty: 90 0RF (DME) nebulizers Misc See Rx Instructions .ROUTE .MEDSUPPLY Qty: 1 0RF Rx Instructions: As directed polyethylene glycol 3350 17 gram powder in packet Patient Comments: MIX ONE PACKET WITH WATER AND TAKE BY MOUTH DAILY NEEDED Medical Decision Making Patient arrives with alcohol intoxication and being found on the floor by family. Unknown whether fall or trauma involved. Had fall a month ago resulting in admission to [facility]. Given her altered mental status and level of somnolence IV placed and laboratory studies obtained. CT scan of head, cervical spine, chest, abdomen and pelvis ordered. Patient's laboratory studies with a normal hemoglobin, baseline kidney function, normal electrolytes and liver function. Alcohol level is 382. CT scan was delayed for short. While access and labs were being obtained as patient was not overly cooperative. She has remained hemodynamically stable. Mental status seems to wax depending on the level of stimulation that occurs. CT scans completed and radiology reports a small subdural hematoma right high parietal region as well as evidence of acute rib fractures on the left. Old healing rib fractures are also noted as well as the lacerated spleen previously seen at [facility] last month. Again patient remained hemodynamically stable. She remains nonfocal neurologically. Call to the transfer center at [facility] was made to review images and case with trauma who just has this patient last month. Spoke with Dr. Sargent from trauma at [facility]. Discussed patient's presentation and her radiology findings. Patient accepted to be seen in the ED at [facility] as a trauma alert. We have attempted to apply a c-collar simply because of her intoxication with the injuries found. She will not leave it in place. She has been maintained on the monitor. She has remained hemodynamically stable. GCS waxes and wanes between 13-15 depending on stimulation. She remains nonfocal. She will be transported by [facility] ambulance to [facility] for further evaluation. Daughter has been made aware of need for transfer and evaluation by trauma. Lab Data Lab results reviewed: Yes I reviewed the patient's lab results. HPI General Mode of arrival: EMS. Date/Time Provider Initiated Documentation: 08/06/22 16:16. Limitations to Documentation: altered mental status. Information obtained by: patient and EMS. HPI Narrative: Patient presents to ED by ambulance after being found on the floor at home by family. Patient per family at least 2 pints of alcohol today. She has a history of alcohol abuse. Last month was admitted to [facility] status post fall downstairs with rib fractures and splenic laceration. Patient arrives here fairly somnolent but does respond to painful stimuli and loud verbal stimuli. Does not answer questions. Unknown if recurrent trauma or not. Related Data Home Medications Medication Instructions Recorded Confirmed clobetasol-emollient 0.05 % 1 applic topical DAILY PRN #60 12/08/16 11/12/21 topical cream grams inhalational spacing device #1 ea 09/28/20 11/12/21 (POCKET CHAMBER spacer) nebulizers #1 ea 03/16/21 11/12/21 albuterol sulfate 2.5 mg/3 mL 2.5 mg (3 mL) inhalation Q4H PRN 03/30/21 11/12/21 (0.083 %) solution for nebulization shortness of breath or wheezing #180 mL folic acid 1 mg tablet 1 mg PO DAILY #90 tabs 04/29/21 08/06/22 hydroxyzine HCl 25 mg tablet 25 mg PO TID PRN anxiety #180 tabs 04/29/21 11/12/21 magnesium oxide 400 mg (241.3 mg 400 mg PO DAILY #90 tabs 04/29/21 11/12/21 magnesium) tablet thiamine HCl (vitamin B1) 100 mg 100 mg PO DAILY 04/29/21 11/12/21 tablet thiamine HCl (vitamin B1) 100 mg 100 mg PO DAILY #90 tabs 04/29/21 11/12/21 tablet triamcinolone acetonide 0.1 % 1 applic topical DAILY 04/29/21 11/12/21 topical cream albuterol sulfate 90 mcg/actuation 2 puff inhalation Q4H PRN #18 grams 08/16/21 11/12/21 aerosol inhaler (ProAir HFA) furosemide 20 mg tablet (Lasix) 20 mg PO DAILY #3 tabs 11/12/21 11/12/21 citalopram 40 mg tablet 40 mg PO DAILY #90 tabs 07/07/22 08/06/22 trazodone 50 mg tablet 75 mg PO QHS PRN sleep #135 tabs 07/07/22 08/06/22 doxepin 25 mg capsule 25 mg PO BID #60 caps 07/13/22 07/13/22 hydrocodone 5 mg-acetaminophen 325 1 tab PO TID PRN pain #21 tabs 07/13/22 08/06/22 mg tablet lisinopril 10 mg tablet 10 mg PO DAILY #90 tab-caps 07/13/22 08/06/22 methocarbamol 500 mg tablet 500 mg PO BID PRN rib pain #20 tabs 07/13/22 07/13/22 propranolol 20 mg tablet 20 mg PO BID #180 tabs 07/13/22 08/06/22 quetiapine 100 mg tablet See Rx Instructions .Route 07/13/22 08/06/22 .COMPLEX #135 tabs polyethylene glycol 3350 17 gram g 08/06/22 08/06/22 oral powder packet Previous Rx's Medication Instructions Recorded inhalational spacing device #1 ea 09/28/20 (POCKET CHAMBER spacer) nebulizers #1 ea 03/16/21 albuterol sulfate 2.5 mg/3 mL 2.5 mg (3 mL) inhalation Q4H PRN 03/30/21 (0.083 %) solution for nebulization shortness of breath or wheezing #180 mL folic acid 1 mg tablet 1 mg PO DAILY #90 tabs 04/29/21 hydroxyzine HCl 25 mg tablet 25 mg PO TID PRN anxiety #180 tabs 04/29/21 magnesium oxide 400 mg (241.3 mg 400 mg PO DAILY #90 tabs 04/29/21 magnesium) tablet thiamine HCl (vitamin B1) 100 mg 100 mg PO DAILY #90 tabs 04/29/21 tablet albuterol sulfate 90 mcg/actuation 2 puff inhalation Q4H PRN #18 grams 08/16/21 aerosol inhaler (ProAir HFA) furosemide 20 mg tablet (Lasix) 20 mg PO DAILY #3 tabs 11/12/21 citalopram 40 mg tablet 40 mg PO DAILY #90 tabs 07/07/22 trazodone 50 mg tablet 75 mg PO QHS PRN sleep #135 tabs 07/07/22 doxepin 25 mg capsule 25 mg PO BID #60 caps 07/13/22 hydrocodone 5 mg-acetaminophen 325 1 tab PO TID PRN pain #21 tabs 07/13/22 mg tablet lisinopril 10 mg tablet 10 mg PO DAILY #90 tab-caps 07/13/22 methocarbamol 500 mg tablet 500 mg PO BID PRN rib pain #20 tabs 07/13/22 propranolol 20 mg tablet 20 mg PO BID #180 tabs 07/13/22 quetiapine 100 mg tablet See Rx Instructions .Route 07/13/22 .COMPLEX #135 tabs Allergies Allergy/AdvReac Type Severity Reaction Status Date / Time oxycodone AdvReac Unknown TERRIBLE Verified 08/06/22 19:44 DREAMS General Stated Complaint: ETOHWithdr ALISTAIR: 2 Review of Systems Unobtainable due to mental status PFSH All Active Problems (Updated 08/06/22 @ 20:55 by Elio Navarerte MD) SDH (subdural hematoma) (Acute) Multiple rib fractures (Acute) Alcohol intoxication (Acute) Left axillary swelling (Acute ~07/2022) 07/21/22 Gen Surgery Alcohol abuse (Chronic) Heavy menses (Acute) Encounter for screening colonoscopy (Acute) Anemia (Chronic) Anxiety (Chronic) DUB (dysfunctional uterine bleeding) (Acute) Depression (Chronic 04/03/15) Sertaline in the past with good relief of sx but then developed intolerable adverse rxns (nausea, flushing) Started on venlafaxine 03/2015 PHQ9 score = 9, indicating mild depression 03/2015 Chronic pain (Acute 02/20/09) chronic tramadol rx, back pain, sciatica despite LS surg 2009. Impaired fasting blood sugar (Acute 08/01/05) Obesity, unspecified (Acute 05/31/11) Atypical squamous cells of undetermined significance (ASC-US) on cervical Pap smear (Acute 08/05/09) ASCUS 08/05/09; 05/31/2011 Spinal stenosis of lumbar region (Acute 01/11/10) LS spine surg; Dr Sebastian Walker Tobacco dependence (Acute 08/01/05) Medical History (Updated 08/06/22 @ 20:55 by Elio Navarrete MD) HTN (hypertension), benign Spinal stenosis Lumbar region Tobacco use disorder Surgical History Back surgery L5-S1 decompression 2009 Family History Mother , lung cancer at age 50. No problems noted. Father , MVA No problems noted. Other Lung cancer Social History Smoking/Tobacco Use Status: Current every day Tobacco Type: cigarettes Smoking risk assessment performed?: Yes Alcohol Intake: current Alcohol Intake frequency: 3 or more drinks per day Alcohol type: beer and hard liquor Drug use: Never Substance use type: does not use Do you feel safe at home: Yes Do you feel safe in your relationship?: Yes Exam Narrative Exam Narrative: Const: WDWN female in NAD. HEENT: NC. Possible minor bruising around the left eye/cheek. Eyes: PERRL and EOMI Neck: Trachea mid line. No tenderness or step off. Lungs: Normal respiratory effort. Lungs are clear. Cor: RRR without murmur/gallop. Good radial pulses. GI: Soft. NT/ND. No guarding or rebound. Neuro: Somnolent but arouses to loud voice and painful stimuli . Cranial nerves II - XII grossly intact. No gross motor or sensory deficit. Ext: No deformity. Skin: Warm and dry without lacs. Course Vital Signs Vital signs: Vital Signs Temperature 98.4 F 08/06/22 16:09 Pulse 85 08/06/22 16:09 Respiratory Rate 16 08/06/22 16:09 Blood Pressure 108/67 08/06/22 16:09 Pulse Oximetry 100 08/06/22 16:09 Temperature 98.4 F 08/06/22 16:09 Temperature Source Skin 08/06/22 16:09 Pulse 85 08/06/22 16:09 Respiratory Rate 16 08/06/22 16:09 Blood Pressure 108/67 08/06/22 16:09 Blood Pressure Position Supine 08/06/22 16:09 Pulse Oximetry 100 08/06/22 16:09 Oxygen Delivery Method Room Air 08/06/22 16:09 Oxygen Flow Rate 0 08/06/22 16:09
--- NOTE | 2022-08-06 16:58 | NUR.NOTE ---
Nursing Note: Lucia Gutierrez/daughter: [phone].
[2022-08-06 17:04] LABS: Abs Immature Grans 0.05 10^3/uL (0.0-0.06); Absolute Basophil Count 0.08 10^3/uL (0.0-0.2); Absolute Eosinophil Count 0.34 10^3/uL (0.0-0.7); Absolute Lymphocyte Count 2.32 10^3/uL (1.2-3.4); Absolute Monocyte Count 0.39 10^3/uL (0.1-0.8); Absolute Neutrophil Count 5.31 10^3/uL (1.2-6.7); Basophils % 0.9; HCT 40.9 % (36.0-46.0); HGB 13.1 g/dL (11.2-15.7); Immature Grans % 0.6; Lymphocytes % 27.3; MCH 29.4 pg (27.0-33.0); MCV 92 fL (80-95); MPV 10.3 fL (8.0-11.0); Monocytes % 4.6; Neutrophils % 62.6; Platelet Count 384 10^3/uL (130-400); RBC 4.46 10^6/uL (3.93-5.22); RDW-SD 57.1 fL; WBC 8.49 10^3/uL (4.4-10.8)
[2022-08-06] MEDS: Normal Saline 1,000 ML 1000 ML IV (17:11)
[2022-08-06 17:26] LABS: HCG Qual (Serum) Negative
--- NOTE | 2022-08-06 17:36 | NUR.NOTE ---
Nursing Note: Pt remains non-oriented to place, and time. Pt intermittently combative and [id number]. Pt has warm blankets for comfort and assisted to beside commode.
--- NOTE | 2022-08-06 18:00 | NUR.NOTE ---
Nursing Note: Pt intermittently swearing and repeated reoriented to situation. Pt wants daughter now and frustrated this RN has brought daughter, despite this nurse updating pt to location of daughter. Pt stated, you have been very nice then called this nurse an asshole. Charge nurse aware.
[2022-08-06 18:25] LABS: ALT 19 U/L (14-59); AST 22 U/L (15-37); Albumin 3.7 g/dL (3.4-5.0); Alkaline Phosphatase 104 U/L (46-116); Anion Gap 9.5 mmol/L (3-11); BUN 40 mg/dL (7-18); Bilirubin, Total 0.2 mg/dL (0.2-1.0); CO2 23.5 mmol/L (21.0-32.0); CREATININE 1.2 mg/dL (0.55-1.02); Calcium 8.6 mg/dL (8.5-10.1); Chloride 105 mmol/L (98-107); Estimated GFR 54.13 (mL/min/1.73m2); Glucose 96 mg/dL (74-106); Magnesium 2.4 mg/dL (1.8-2.4); Sodium 138 mmol/L (136-145); Total Protein 8.5 g/dL (6.4-8.2)
[2022-08-06 18:26] LABS: ETHANOL BLOOD 381.8 mg/dL (<10)
[2022-08-06] MEDS: Omnipaque 350 MG/ML 100 ML BTL IJ (18:34)
[2022-08-06] MEDS: Normal Saline - Diluent 50 ML VIAL IJ (18:35)
--- NOTE | 2022-08-06 19:10 | NUR.NOTE ---
Nursing Note: Pt requested to speak to her daughter. RN brought her the phone so that she may speak to her.
--- NOTE | 2022-08-06 19:28 | DI.VRAD_ITS ---
Addendum created by Oscar Berry MD on 08/06/2022 7:30:35 PM EDT: THIS REPORT CONTAINS FINDINGS THAT MAY BE CRITICAL TO PATIENT CARE. The findings were verbally communicated via telephone conference with JERRY PINA at 7:29 PM EDT on 08/06/2022. The findings were acknowledged and understood. Initial report created on 08/06/2022 7:27:52 PM EDT: PROCEDURE INFORMATION: Exam: CT Head Without Contrast Exam date and time: 08/06/2022 6:45 PM Age: 51 years old Clinical indication: Injury or trauma; Fall; Blunt trauma (contusions or hematomas); Patient HX: Intoxicated, AMS, found on floor TECHNIQUE: Imaging protocol: Computed tomography of the head without contrast. COMPARISON: CT HEAD WITHOUT CONTRAST 08/02/2017 6:31 PM FINDINGS: Brain: There is a small hyperdense extra-axial focus in the superior right parietal region. See coronal series 8, image 34. Axial series 3, image 39. Sagittal series 9, image 51. This is not present on a prior study 08/02/17. This is likely a small extra-axial intracranial hemorrhage. This is most consistent with a small subdural hematoma.. No cerebral edema. No mass. Cerebral ventricles: No ventriculomegaly. Paranasal sinuses: Visualized sinuses are unremarkable. No fluid levels. Mastoid air cells: Visualized mastoid air cells are well aerated. Bones/joints: No skull fracture. Soft tissues: Moderate left forehead scalp hematoma. No foreign body. IMPRESSION: 1. Small extra-axial hyperdense collection in the high anterior right parietal lobe measuring 7 x 5 mm. Likely a small subdural hematoma. This focus is not present by previous CT from 2018. Attenuation coefficient of this focus consistent with hemorrhage. Not consistent with calcium. 2. Moderate left forehead scalp hematoma. No foreign body. 3. No skull fracture. PROCEDURE INFORMATION: Exam: CT Cervical Spine Without Contrast Exam date and time: 08/06/2022 6:45 PM Age: 51 years old Clinical indication: Injury or trauma; Fall; Blunt trauma (contusions or hematomas); Patient HX: Intoxicated, AMS, found on floor TECHNIQUE: Imaging protocol: Computed tomography of the cervical spine without contrast. COMPARISON: CT CHEST PE ABD PELVIS W 03/16/2021 12:23 PM FINDINGS: Bones/joints: Mild degenerative facet and uncovertebral joint disease. Moderate degenerative disc space narrowing at C5-C6. Lungs: Lung apices are normal. Soft tissues: Unremarkable. IMPRESSION: 1. No acute findings. No fracture or dislocation. 2. Degenerative changes. Dictated and Authenticated by: Oscar Berry MD. Ordering:DWAIN Ballard MD
--- NOTE | 2022-08-06 19:57 | DI.VRAD_ITS ---
Addendum created by Oscar Berry MD on 08/06/2022 8:01:34 PM EDT: THIS REPORT CONTAINS FINDINGS THAT MAY BE CRITICAL TO PATIENT CARE. The findings were verbally communicated via telephone conference with JERRY PINA at 8:00 PM EDT on 08/06/2022. The findings were acknowledged and understood. Patient did have a splenic injury 1 month ago and was embolized at a different hospital. This does corroborate my suspicion that this splenic injury is chronic. No acute features of hemoperitoneum. No acute intra-abdominal or pelvic visceral injury. Initial report created on 08/06/2022 7:57:27 PM EDT: PROCEDURE INFORMATION: Exam: CT Chest With Contrast; Diagnostic Exam date and time: 08/06/2022 6:55 PM Age: 51 years old Clinical indication: Injury or trauma; Fall; Generalized; Blunt trauma (contusions or hematomas); Patient HX: Intoxicated, AMS, found on floor TECHNIQUE: Imaging protocol: Diagnostic computed tomography of the chest with contrast. 3D rendering (Not supervised by radiologist): MIP and/or 3D reconstructed images were created by the technologist. Contrast material: OMNIPAQUE 350; Contrast volume: 100 ml; Contrast route: INTRAVENOUS (IV); COMPARISON: CT CHEST PE ABD PELVIS W 03/16/2021 12:23 PM FINDINGS: Lungs: No acute airspace consolidation. Minor diffuse bronchial wall thickening likely representing bronchitis. This may represent a chronic bronchitis. There are mild emphysematous lung changes bilaterally. Pleural spaces: No pleural effusion. No pneumothorax. Heart: Normal heart size. No pericardial effusion. Moderate left coronary artery atherosclerotic calcium is visible. Lymph nodes: Unremarkable. No enlarged lymph nodes. Vasculature: Unremarkable. No aortic aneurysm. Bones/joints: Displaced posterior 11th, 10th, and 9th rib fractures. These appear acute. Multiple additional old healing left lateral rib fractures. Thoracic spine degenerative change. No acute disruption. Soft tissues: Chest wall soft tissues are unremarkable. IMPRESSION: 1. Acute posterior displaced left 9th, 10th, and 11th rib fractures. Additionally, there are multiple left inferior and lateral old rib fractures which have features of healing. 2. No acute lung consolidation. No pleural fluid. No pneumothorax. 3. Minor bronchial wall thickening likely representing chronic bronchitis. Mild emphysematous lung features. PROCEDURE INFORMATION: Exam: CT Abdomen And Pelvis With Contrast Exam date and time: 08/06/2022 6:55 PM Age: 51 years old Clinical indication: Injury or trauma; Fall; Generalized; Blunt trauma (contusions or hematomas); Patient HX: Intoxicated, AMS, found on floor TECHNIQUE: Imaging protocol: Computed tomography of the abdomen and pelvis with contrast. 3D rendering (Not supervised by radiologist): MIP and/or 3D reconstructed images were created by the technologist. Contrast material: OMNIPAQUE 350; Contrast volume: 100 ml; Contrast route: INTRAVENOUS (IV); COMPARISON: CT CHEST PE ABD PELVIS W 03/16/2021 12:23 PM FINDINGS: Liver: The liver is normal in size, contour and attenuation. Gallbladder and bile ducts: The gallbladder is normal in size and shape. No stones or inflammatory changes. Pancreas: Normal. No ductal dilation. Spleen: Prominent subcapsular splenic fluid collection posteriorly measuring 8.8 cm transversely by 3.6 cm AP. Cephalo caudal extent of this collection is 9.6 cm. This has a slightly heterogeneous appearing attenuation and is likely a subcapsular hematoma of the spleen. There is a posteroinferior splenic laceration. See series 5, image 559. Depth of this laceration is 1.5 cm. This is considered a grade 2 splenic injury. Adrenal glands: Normal. No mass. Kidneys and ureters: The kidneys bilaterally are unremarkable. Normal attenutation. No hydronephrosis. No calculi. Stomach and bowel: Unremarkable. No obstruction. No mucosal thickening. Appendix: No evidence of appendicitis. Intraperitoneal space: No free fluid in the abdomen or pelvis. No free air. Vasculature: The splenic artery shows a segmental area of unopacified vessel posterior to the pancreas. See axial series 5, image 541. There is a 3 cm length of artery which appears thrombosed. Distal to this is a hyperdense intravascular focus with adjacent small metallic clips. This may represent an arterial occlusion device for previous embolization. See series 10, image 128. This is best appreciated with application of bone window technique. Recommend clinical correlation. This focus was not present 03/16/2021. Lymph nodes: Unremarkable. No enlarged lymph nodes. Urinary bladder: Urinary bladder is unremarkable in appearance. No wall thickening. No intravesicular calculi. No intravesicular gas. Reproductive: Lobular uterus with multiple enhancing nodules containing coarse calcifications consistent with a multi fibroid uterus. No suspicious adnexal changes. No dominant cyst. No masslike features. Bones/joints: Lumbar spine degenerative changes. No fractures. No pelvic fracture or diastasis. Soft tissues: Abdominal wall soft tissues are unremarkable. IMPRESSION: 1. There are features suggesting a grade 2 splenic injury with an inferior laceration measuring 1.5 cm and a prominent subcapsular hematoma. There are changes consistent with a splenic artery embolization device. This may be a chronic splenic process. Recommend clinical correlation. There is no perisplenic free fluid. There is no evidence of free fluid in the abdomen or pelvis. 2. Degenerative lumbosacral spine disease. 3. Multi fibroid uterus. Follow-up imaging with ultrasound may be warranted if this has not been previously evaluated. Dictated and Authenticated by: Oscar Berry MD. Ordering:DWAIN Ballard MD
--- NOTE | 2022-08-06 20:48 | NUR.NOTE ---
Nursing Note: Rn asked patient if she would wear a c-collar. Pt was compliant and then after RN put the collar on she demanded it be taken off. RN complied with pt request and took the c-collar off.
--- OUTSIDE RECORDS SUMMARY | 2022-08-06 20:54 | XMS_ITS | Continuity of Care Document ---
Author Name Unknown Organization [facility] Address [address] [place] [address] Care Team Providers Care Sorter Pricer Name Role Phone TamraPaula Primary Care Physician Encounter [facility] Date(s): 07/01/22 - 07/01/[address] [id number] Discharge Disposition: Discharge/Transfer - Other Type of Inst Attending Physician: Damir Noriega MD Admitting Physician: Damir Noriega MD Allergies, Adverse Reactions, Alerts No Known Medication Allergies Substance Reaction Severity Status fentaNYL Unknown Active Functional Status 07/01/22 Family Member Travel History No recent t ravel Recent Travel History No recent travel Other exposure to Infectious Disease Non e Medications !-Keflex 500 mg oral capsule 500 mg = 1 cap, Oral, QID, X 7 days, # 28 cap, 0 Refill(s), 07/08/22 1:04:00 EDT Start Date: 07/01/22 Stop Date: 07/08/22 Status: Ordered CeleXA 0 Refill(s) Start Date: 06/30/22 Status: Ordered Mental Status 07/01/22 Eye Opening Response [place] Spontaneous ly Best Verbal Response [place] Oriented Best Motor Response [place] Obeys comman ds [place] Coma Score 15 Results Laboratory List Name Date ABO/Rh 07/01/22 Antibody Screen Gel 07/01/22 SARS-CoV-2 (COVID-19) RNA (ID Now) CBC w/ Diff 07/01/22 Lactic Acid 07/01/22 Magnesium Level 07/01/22 Troponin-I 07/01/22 Automated Diff 07/01/22 Most recent to oldest [Reference Range]: 1 WBC [5.0-10.0 x10^3/mcL] 6.5 x10^3/mcL (07/01/22 5:30 AM) RBC [4.1-5.3 x10^6/mcL] 3.2 x10^6/mcL *LOW* (07/01/22 5:30 AM) Neutro Auto [40.0-75.0 %] 57.8 % (07/01/22 5:30 AM) Lymph Auto [20.0-50.0 %] 32.7 % (07/01/22 5:30 AM) Boyd Auto [2.0-15.0 %] 7.2 % (07/01/22 5:30 AM) Basophil Auto [0.0-1.0 %] 1.1 % *HI* (07/01/22 5:30 AM) ABO/Rh Type A POS *Unknown* (07/01/22 6:10 AM) MCV [80.0-96.0 fL] 94.5 fL (07/01/22 5:30 AM) MCHC [31.0-35.0 g/dL] 31.6 g/dL (07/01/22 5:30 AM) Troponin-I [0.0-51.4 pg/mL] 16.0 pg/mL (07/01/22 5:30 AM) Hct [37.0-47.0 %] 30.7 % *LOW* (07/01/22 5:30 AM) MCH [26.0-32.0 pg] 29.8 pg (07/01/22 5:30 AM) Magnesium Level [1.8-2.4 mg/dL] 1.5 mg/d L *LOW* (07/01/22 5:30 AM) Neutro Absolute 3.8 x10^3/mcL *NA* (07/01/22 5:30 AM) Hgb [12.0-16.0 g/dL] 9.7 g/dL *LOW* (07/01/22 5:30 AM) Platelets [130-450 x10^3/mcL] 347 x10^3/ mcL (07/01/22 5:30 AM) Lactic Acid Lvl [0.7-2.0 mmol/L] 6.2 mmo l/L 1 *CRIT* (07/01/22 5:30 AM) RDW-CV [11.7-17.0 %] 16.3 % (07/01/22 5:30 AM) Imm Gran Auto [0.0-0.9 %] 0.6 % (07/01/22 5:30 AM) Antibody Screen Gel Negative ABSC (07/01/22 6:10 AM) SARS-CoV-2 (COVID-19) RNA (ID Now) [Not Detected] Not Detected (07/01/22 6:10 AM) Eos, Auto [1.0-6.0 %] 0.6 % *LOW* (07/01/22 5:30 AM) 1Result Comment: Called to and verbally verified by Damir Noriega MD at 07/01/2022 05:48:37 EDT. Vital Signs Most recent to oldest [Reference Range]: 1 2 3 Temperature Temporal Artery [36-38 Deg C] 37 Deg C (07/01/22 4:43 AM) 37 Deg C (07/01/22 2:05 AM) Peripheral Pulse Rate [60-100 bpm] 93 bpm (07/01/22 7:22 AM) 101 bpm *HI* (07/01/22 7:05 AM) 99 bpm (07/01/22 7:02 AM) Heart Rate Monitored [60-100 bpm] 117 bpm *HI* (07/01/22 8:08 AM) 97 bpm (07/01/22 7:25 AM) 94 bpm (07/01/22 7:22 AM) Respiratory Rate [12-24 br/min] 18 br/min (07/01/22 8:08 AM) 17 br/min (07/01/22 7:25 AM) 16 br/min (07/01/22 7:22 AM) Blood Pressure [90-140/60-90 mmHg] 117/79mmHg (07/01/22 7:25 AM) 110/72mmHg (07/01/22 7:22 AM) 104/86mmHg (07/01/22 7:02 AM) Weight Dosing 68.00 kg (07/01/22 2:37 AM) Weight Estimated 68.00 kg (07/01/22 2:05 AM) Height/Length Dosing 160.000 cm (07/01/22 2:37 AM) Height/Length Estimated 160.000 cm (07/01/22 2:05 AM) Social History Social History Type Response Tobacco Current everyday tob acco user Tobacco Use:. 1/2 pack a day per day. Sex Female Physician Emergency department Note * Damir Noriega MD: PERFORM Event Display: ED Note Physician Authored Date: [id number] IVAN GREGORIO :1970 Age:51 years Sex:Female Visit Date:07/01/2022 Primary Care Physician: Paula Barboza NP Basic Information Time Seen: Damir Noriega MD / 07/01/2022 02:17 Chief Complaint Pt returns after leaving AMA states pain to Left flank is not getting any better History Of Present Illness: Patient is a 51-year-old female presenting with left-sided??abdominal pain. ??She was just recentlyin the ER??but left AMA as she did not wait for a CAT scan.?? However while in the waiting room waiting for a ride she change her mind and we presented. ??In short??patient presenting with significant left upper quadrant pain. ??Previous labs that were done all returned during with the exception ofa extremely elevated alcohol level. ??Patient currently??talking in complete sentences, ambulating at baseline and tolerating p.o. Physical Exam Vitals & Measurements T:??37?C ??(Temporal Artery)?? HR:??99??(Peripheral)?? HR:??99??(Monitored)?? RR:??17?? BP:??104/86?? SpO2:??100%?? HT:??160.000??cm?? WT:??68.00??kg??(Estimated)?? Pain Score:??10?? O2 Flow Rate:??3?? O2 Therapy:??Nasal cannula?? General: Alert and oriented, well nourished,?No??acute distress HENT: Normocephalic, clear tympanic membranes,?Normal?? hearing, moist oral mucosa,?No??scleral icterus,?No??sinus tenderness Lungs: Clear to auscultation and percussion,?Non-labored?? respiration Heart:?Normal?? rate,?Regular??rhythm,?No??murmur,?No??gallop,?No??edema Abdomen: Soft, tenderness to the left upper quadrant without obvious signs of trauma, non-distended,?Normal?? bowel sounds,?No??masses Musculoskeletal:?Normal?? range of motion and strength,?No??tenderness,?No??swelling Skin: Skin is warm, dry and pink,?No??rashes,?No??lesions Neurologic: Awake, alert and oriented X4,?? Medical Decision Making: Patient is a 51-year-old female presenting with abdominal pain.?? Patient be presented and is willing to stay for a CAT scan. ??CT of the abdomen??pelvis did show lateral ninth through 11th rib fractures as well as posterior??ninth through the 11th rib fractures. ??Also noted a small splenic hematoma as well significant traumatic injury??I decided to bravo scan the patient??to assess for any other evidence of trauma. ??Will likely require admission??for further monitoring. Critical Care Time Spent 120 a frequent monitoring,??oxygen administration, hemodynamic instability, repeat evaluations??this does not include separate billable procedures Assessment/Plan Ordered: !-Keflex 500 mg oral capsule, 500 mg = 1 cap, Oral, QID, X 7 days, # 28 cap, 0 Refill(s), 07/08/22 1:04:00 EDT Sodium Chloride 0.9% 1,000 mL, Total Volume (mL): 1,000, 1,000 mL, Soln, IV, 1,000 mL/hr, Start Date: 07/01/22 6:08:00 EDT, 68 kg, Populate Charting Weight From Order, 1.74, m2 ABO/Rh, Blood, Stat, 07/01/22 6:01:00 EDT, Once, Nurse collect Antibody Screen Gel, Blood, Stat, 07/01/22 6:01:00 EDT, Once, Nurse collect CT Spine Thoracic/Lumbar w/o Cont, 07/01/22 6:10:00 EDT, Stat, Reason: trauma, Transport Mode: Stretcher, Exam to be performed outside organization? CV EKG ED, 07/01/22 4:58:00 EDT, Routine, Reason: Arrhythmia(s), Symptomatic, Stop date and time 07/01/22 4:58:00 EDT, ORD_SET_REQ_DT_RANGE, Rebeca's Internal Person Id Transfer to Another Facility, 07/01/22 7:05:00 EDT While waiting for CT results??the patient was??ambulating and??fell was found on the ground on the left-hand side.?? We attempted to get her up when she appeared to have a??syncopal/shaking episode??and she lost continence of her urine. ??She was brought into the trauma bay, she was unresponsive??found to be tachycardic??however sternal rub woke her up.?? She was alert and oriented at that time was able to tell me why??she was here and what had happened. ??She states that the syncopal episodes have been??ongoing for quite some time and this is the reason why she fell 8 days ago. ?? Patient's repeat lab work came back notable for a lactic acid of 6.4??concerning for possible seizure however patient did not have a??long postictal period but was incontinent of urine.?? Hemoglobin also noted a drop??of approximately 2 over the last 6 hours??concerning that this grade 2 lacerationmay be more??concerning. ??We will give TXA.?She is slightly tachycardic here blood pressure is noted to be in the 100 systolically.?? I reached out to[facility] for??immediate transfer. ??Patient??sitting up in bed talking in full sentences??only complaining of some mild left-sided chest pain. ?? Spoke with Dr. Ugarte who requested placing the patient in a c-collar given she is intoxicated and lying flat on the stretcher.?? She excepted for transfer and requested that if transfer was prolonged to get every 2 hour hemoglobins??and if any change in clinical status??to rescan her abdomen as well as??empirically give blood.?? She does not believe that the patient needs blood at this time but close monitoring. ?? Repeat vitals heart rate of 100, blood pressure is 104/86.?? Her main complaint is that the c-collar is??uncomfortable. ??We do have a ride coming approximately 20 minutes.?? All questions were answered she will be transferred to the tertiary center for further evaluation. Patient Discharge Condition Critical Discharge Disposition Transfer Medication Reconciliation Unchanged cephalexin (!-Keflex 500 mg oral capsule)1 Capsules Oral (given by mouth) 4 times a day for 7 Days.Refills: 0. ?? citalopram (CeleXA) Problem List/Past Medical History Ongoing No qualifying data Historical No qualifying data Medication Administration Given Sodium Chloride 0.9%, 1000 mL, IV !-Zofran, 4 mg, IV Push lidocaine 5% topical film, 1 patches, TD morphine, 2 mg, IV Push morphine, 4 mg, IV Push morphine, 4 mg, IV Push tranexamic acid, IV Piggyback tranexamic acid, IV Piggyback Allergies No Known Medication Allergies fentaNYL Social History Alcohol Current, 1-2 times per week Electronic Cigarette/Vaping Electronic Cigarette Use: Never. Tobacco Current everyday tobacco user Tobacco Use:. 1/2 pack a day per day. Lab Results CBC and Differential?? LATEST RESULTS?? HISTORICAL RESULTS?? WBC?? 07/01/22 05:30?? 6.5?? 06/30/22?? 7.7?? RBC?? 07/01/22 05:30?? 3.2 ??Low?? 06/30/22?? 4.0 ??Low?? Hgb?? 07/01/22 05:30?? 9.7 ??Low?? 06/30/22?? 11.9 ??Low?? Hct?? 07/01/22 05:30?? 30.7 ??Low?? 06/30/22?? 36.6 ??Low?? MCV?? 07/01/22 05:30?? 94.5?? 06/30/22?? 90.8?? MCH?? 07/01/22 05:30?? 29.8?? 06/30/22?? 29.5?? MCHC?? 07/01/22 05:30?? 31.6?? 06/30/22?? 32.5?? RDW-CV?? 07/01/22 05:30?? 16.3?? 06/30/22?? 16.0?? Platelets?? 07/01/22 05:30?? 347?? 06/30/22?? 362?? Neutro Auto?? 07/01/22 05:30?? 57.8?? 06/30/22?? 79.6 ??High?? Lymph Auto?? 07/01/22 05:30?? 32.7?? 06/30/22?? 14.7 ??Low?? Boyd Auto?? 07/01/22 05:30?? 7.2?? 06/30/22?? 3.6?? Eos, Auto?? 07/01/22 05:30?? 0.6 ??Low?? 06/30/22?? 0.8 ??Low?? Basophil Auto?? 07/01/22 05:30?? 1.1 ??High?? 06/30/22?? 0.9?? Imm Gran Auto?? 07/01/22 05:30?? 0.6?? 06/30/22?? 0.4?? Neutro Absolute?? 07/01/22 05:30?? 3.8?? 06/30/22?? 6.1? Routine Chemistry?? LATEST RESULTS?? Lactic Acid Lvl?? 07/01/22 05:30?? 6.2 ??Critical?? Magnesium Level?? 07/01/22 05:30?? 1.5 ??Low? Cardiac Isoenzymes?? LATEST RESULTS?? Troponin-I?? 07/01/22 05:30?? 16.0? Infectious Disease?? LATEST RESULTS?? SARS-CoV-2 (COVID-19) RNA (ID Now)?? 07/01/22 06:10?? Not Detected? Electronically Signed on 07/01/22 07:12 AM Damir Noriega MD Emergency department Note * Charo Hahn M: PERFORM Event Display: ED Notes Authored Date: Patient Care team information Care Team Personnel Name: Paula Barboza FASHION MERCHANDISER Position: No Access Member Role: Primary Care Physician Address: Address: [facility] Internal [facility] [address] [place] [phone] Name: Venkata Russell RN Position: Nurse Member Role: Registered Nurse Name: Damir Noriega MD Position: Physician Member Role: ED Physician Address: Address: [address] [place] [id number] Name: Nadine Ortiz RN Position: Nurse Member Role: ED Nurse Care Team Related Persons Name: EMMY VIZCAINO Name: JAQUELINE SAM
--- OUTSIDE RECORDS SUMMARY | 2022-08-06 20:54 | XMS_ITS | Continuity of Care Document ---
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 Name Role Phone Paula Barboza Primary Care Physician Encounter NCTY_OR Date(s): 06/30/22 - 07/01/[address] [id number] Encounter Diagnosis Abdominal pain(Discharge Diagnosis) - 07/01/22 Cellulitis(Discharge Diagnosis) - 07/01/22 Unspecified abdominal pain(Final) - Cellulitis of right lower limb(Final) - Procedure and treatment not carried out due to patient leaving prior to being seen by health care provider(Final) - Other parts counterman (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) drug therapy(Final) - Discharge Disposition: Left Against Medical Advice Attending Physician: Damir Noriega MD Admitting Physician: Damir Noriega MD Allergies, Adverse Reactions, Alerts No Known Medication Allergies Substance Reaction Severity Status [id number] Unknown Active Medications !-Keflex 500 mg oral capsule 500 mg = 1 cap, Oral, QID, X 7 days, # 28 cap, 0 Refill(s), 07/08/22 1:04:00 EDT Start Date: 07/01/22 Stop Date: 07/08/22 Status: Ordered CeleXA 0 Refill(s) Start Date: 06/30/22 Status: Ordered Results Laboratory List Name Date Urinalysis Microscopic 07/01/22 Urinalysis with Micro if Indicated and C ulture if Indicated 07/01/22 Alcohol Level 07/01/22 Automated Diff 06/30/22 CBC w/ Diff 06/30/22 Comprehensive Metabolic Panel 06/30/22 Lipase Level 06/30/22 Most recent to oldest [Reference Range]: 1 WBC [5.0-10.0 x10^3/mcL] 7.7 x10^3/mcL (06/30/22 11:55 AM) RBC [4.1-5.3 x10^6/mcL] 4.0 x10^6/mcL *LOW* (06/30/22 AM) Neutro Auto [40.0-75.0 %] 79.6 % *HI* (06/30/22) Lymph Auto [20.0-50.0 %] 14.7 % *LOW* (06/30/22 AM) Coles Auto [2.0-15.0 %] 3.6 % (06/30/22 AM) Basophil Auto [0.0-1.0 %] 0.9 % (06/30/22 AM) BUN [7-18 mg/dL] 9 mg/dL (06/30/22 AM) UA Color Yellow (07/01/22 12:30 AM) UA WBC [0-3] 0-3 (07/01/22: AM) Glucose Level [74-106 mg/dL] 104 mg/dL (06/30/22: AM) Potassium Level [3.5-5.1 mmol/L] 3.0 mmo l/L *LOW* (06/30/22 AM) MCV [80.0-96.0 fL] 90.8 fL (06/30/22: AM) UA Urobilinogen Positive *ABN* (07/01/22 12:30 AM) UA Bili [Negative] 1+ *ABN* (07/01/22 12:30 AM) UA Ketones Trace *ABN* (07/01/22 12:30 AM) AST [15-37 unit/L] 19 unit/L (06/30/22 AM) ALT [14-59 unit/L] 21 unit/L (06/30/22 AM) MCHC [31.0-35.0 g/dL] 32.5 g/dL (06/30/22: AM) Sodium Level [136-145 mmol/L] 140 mmol/L (06/30/22 AM) UA RBC [0-2] 0-2 (07/01/22:30 AM) UA Leuk Est Negative (07/01/22:30 AM) UA Nitrite Negative (07/01/22 AM) UA Glucose [Negative] Negative (07/01/22 AM) Hct [37.0-47.0 %] 36.6 % *LOW* (06/30/22 AM) UA Bacteria Rare /HPF (07/01/22) Lipase Level [16-77 unit/L] 40 unit/L (06/30/22 AM) Calcium Level [8.5-10.1 mg/dL] 8.7 mg/dL (06/30/22 AM) Albumin Level [3.4-5.0 g/dL] 3.6 g/dL (06/30/22 AM) Protein Total [6.4-8.2 g/dL] 7.9 g/dL (06/30/22 AM) UA Protein Trace *ABN* (07/01/22 AM) MCH [26.0-32.0 pg] 29.5 pg (06/30/22 AM) Neutro Absolute 6.1 x10^3/mcL *NA* (06/30/22 AM) Bilirubin Total [0.2-1.0 mg/dL] 0.4 mg/d L (06/30/22 AM) Hgb [12.0-16.0 g/dL] 11.9 g/dL *LOW* (06/30/22) Alk Phos [46-146 unit/L] 98 unit/L (06/30/22 AM) UA Blood Negative (07/01/22:30 AM) Ethanol Level [0-10 mg/dL] 321 mg/dL *HI* (07/01/2220 AM) UA Mucous Rare /HPF *ABN* (07/01/22 AM) UA Spec Grav 1.025 *NA* (07/01/22:30 AM) Platelets [130-450 x10^3/mcL] 362 x10^3/ mcL (06/30/22:55 AM) CO2 [21-32 mmol/L] 22 mmol/L (06/30/22 11:55 AM) UA Squam Epithelial [None Seen] Rare (07/01/22 12:30 AM) UA pH 5.5 *NA* (07/01/22 12:30 AM) eGFR Non-AA [>=60] 91 (06/30/22 11:55 AM) eGFR AA [>=60] 91 (06/30/22 11:55 AM) UA Appear Clear (07/01/22 12:30 AM) Chloride Level [98-107 mmol/L] 103 mmol/ L (06/30/22 11:55 AM) RDW-CV [11.7-17.0 %] 16.0 % (06/30/22 11:55 AM) Imm Gran Auto [0.0-0.9 %] 0.4 % (06/30/22 11:55 AM) UA Culture Ind?. Not Indicated (07/01/22 12:30 AM) Creatinine Level [0.55-1.02 mg/dL] 0.78 mg/dL (06/30/22 11:55 AM) Eos, Auto [1.0-6.0 %] 0.8 % *LOW* (06/30/22 11:55 AM) Vital Signs Most recent to oldest [Reference Range]: 1 Temperature Temporal Artery [36-38 Deg C ] 36.7 Deg C (06/30/22 11:20 PM) Peripheral Pulse Rate [60-100 bpm] 91 bp m (06/30/22 11:20 PM) Respiratory Rate [12-24 br/min] 14 br/mi n (06/30/22 11:20 PM) Blood Pressure [90-140/60-90 mmHg] 113/6 4mmHg (06/30/22 11:20 PM) Weight Dosing 74.50 kg (06/30/22 11:28 PM) Weight Estimated 74.50 kg (06/30/22 11:20 PM) Height/Length Dosing 160.000 cm (06/30/22 11:28 PM) Height/Length Estimated 160.000 cm (06/30/22 11:20 PM) Social History Social History Type Response Tobacco Current everyday tob acco user Tobacco Use:. 1/2 pack a day per day. Sex Female Hospital Discharge Instructions Patient Education 07/01/2022 00:05:32 Abdominal Pain, Adult, Bhot-vo-Shru Abdominal Pain, Adult Many things can cause belly (abdominal) pain. Most times, belly pain is not dangerous. Many cases of belly pain can be watched and treated at home. Sometimes, though, belly pain is serious. Your doctor will try to find the cause of your belly pain. Follow these instructions at home: Medicines ??? Take hcvi-zgl-ngjkrmg and prescription medicines only as told by your doctor. ??? Do not take medicines that help you poop (laxatives) unless told by your doctor. General instructions ??? Watch your belly pain for any changes. ??? Drink enough fluid to keep your pee (urine) pale yellow. ??? Keep all follow-up visits as told by your doctor. This is important. Contact a doctor if: ??? Your belly pain changes or gets worse. ??? You are not hungry, or you lose weight without trying. ??? You are having trouble pooping (constipated) or have watery poop (diarrhea) for more than 2???3days. ??? You have pain when you pee or poop. ??? Your belly pain wakes you up at night. ??? Your pain gets worse with meals, after eating, or with certain foods. ??? You are vomiting and cannot keep anything down. ??? You have a fever. ??? You have blood in your pee. Get help right away if: ??? Your pain does not go away as soon as your doctor says it should. ??? You cannot stop vomiting. ??? Your pain is only in areas of your belly, such as the right side or the left lower part of the belly. ??? You have bloody or black poop, or poop that looks like tar. ??? You have very bad pain, cramping, or bloating in your belly. ??? You have signs of not having enough fluid or water in your body (dehydration), such as: ??? Dark pee, very little pee, or no pee. ??? Cracked lips. ??? Dry mouth. ??? Sunken eyes. ??? Sleepiness. ??? Weakness. ??? You have trouble breathing or chest pain. Summary ??? Many cases of belly pain can be watched and treated at home. ??? Watch your belly pain for any changes. ??? Take tqbv-pmq-grtyrqq and prescription medicines only as told by your doctor. ??? Contact a doctor if your belly pain changes or gets worse. ??? Get help right away if you have very bad pain, cramping, or bloating in your belly. This information is not intended to replace advice given to you by your health care provider. Make sure you discuss any questions you have with your health care provider. Document Revised: 06/17/2019 Document Reviewed: 06/17/2019 [employer] Patient Education ?? 2021 [employer]. Follow Up Care 06/30/2022 23:20:54 With:Paula Barboza NP Address: [facility] [address] [place] [phone] When:1 to 2 days Physician Emergency department Note * Damir Noriega MD: PERFORM Event Display: ED Note Physician Authored Date: [id number] IVAN GREGORIO :1970 Age:51 years Sex:Female Visit Date:06/30/2022 Primary Care Physician: Paula Barboza NP Basic Information Time Seen: Damir Noriega MD / 06/30/2022 23:41 Chief Complaint 8/10 pain started about 6 hrs ago, started out of nowhere. No problems urinating or BMs. Did fall last week with a lac to right knee and bruising above eyes. History Of Present Illness: Patient is a 51-year-old??female presenting with abdominal pain. ??Patient states that she began having significant abdominal pain approximately??24 hours ago she said it was sudden onset left lower quadrant??pain has been constant with nothing making it better or worse and has been associate with mild nausea and vomiting presents today for further evaluation. Physical Exam Vitals & Measurements T:??36.7?C ??(Temporal Artery)?? HR:??91??(Peripheral)?? RR:??14?? BP:??113/64?? SpO2:??94%?? HT:??160.000??cm?? WT:??74.50??kg??(Estimated)?? General: Alert and oriented, well nourished,?No??acute distress Eye: PERRL, EOMI,?Normal??conjunctiva Lungs: Clear to auscultation and percussion,?Non-labored?? respiration Heart:?Normal?? rate,?Regular??rhythm,?No??murmur,?No??gallop,?No??edema Abdomen: Point tenderness to the left lower quadrant without obvious signs of trauma, no radiation,no CVA tenderness Musculoskeletal:?Normal?? range of motion and strength,?No??tenderness,?No??swelling Skin: Skin is warm, dry and pink,?No??rashes,?No??lesions Neurologic: Awake, alert and oriented X4,?? Medical Decision Making: Patient is a 51-year-old female??presenting with abdominal pain. ??Differential is broad??we will check labs that all returned reassuring however just prior to CAT scan being completed the patient became irate and was yelling stating that it was taking too long, cursing at staff and yelling out into the??emergency room. ??She??is adamantly refusing to stay for further testing. ??Vitals remained stable, had a prolonged discussion with the patient about the risk of??leaving??prior to further evaluation to which she understood.?? Clinically??she does appear to have capacity??and therefore signedout AGAINST MEDICAL ADVICE.?? Patient was given strict return precautions and told to??follow-up??with her primary care physician tomorrow. Assessment/Plan 1.??Abdominal pain??R10.9 2.??Cellulitis??L03.90 Orders: !-Keflex 500 mg oral capsule, 500 mg = 1 cap, Oral, QID, X 7 days, # 28 cap, 0 Refill(s), 07/08/22 1:04:00 EDT morphine, 4 mg = 1 mL, IV Push, Soln-IV, Once, First Dose: 07/01/22 0:54:00 EDT, Stop Date: 07/01/22 0:54:00 EDT, Physician Stop, STAT CT Abdomen and Pelvis w/ Contrast, 06/30/22 23:54:00 EDT, Stat, Reason: left lower quad pain, Transport Mode: Stretcher, Exam to be performed outside organization? CV EKG ED, 06/30/22 23:54:00 EDT, Routine, Reason: Chest Pain, Stop date and time 06/30/22 23:54:00EDT, ORD_SET_REQ_DT_RANGE, [facility] Person Id XR Chest 1 View, 06/30/22 23:54:00 EDT, Stat, Reason: left lower chest pain, Transport Mode: Stretcher, Exam to be performed outside organization? Patient Education Abdominal Pain, Adult, Fnni-ba-Dprr Follow Up With When Contact Information Paula Barboza MEDICAL DIRECTOR/HEAD TEAM PHYSICIAN Within 1 to 2 days [facility] [address] [place] [address]- Additional Instructions: Medication Reconciliation New Prescription cephalexin (!-Keflex 500 mg oral capsule)1 Capsules Oral (given by mouth) 4 times a day for 7 Days.Refills: 0. ?? Unchanged citalopram (CeleXA) Problem List/Past Medical History Ongoing No qualifying data Historical No qualifying data Medication Administration Given !-Ofirmev, 1000 mg, IV Piggyback Toradol, 15 mg, IV Push Allergies No Known Medication Allergies Social History Alcohol Current, 1-2 times per week Electronic Cigarette/Vaping Electronic Cigarette Use: Never. Tobacco Current everyday tobacco user Tobacco Use:. 1/2 pack a day per day. Lab Results Serum Toxicology?? LATEST RESULTS?? Ethanol Level?? 07/01/22 00:20?? 321 ??High? UA Macroscopic?? LATEST RESULTS?? UA Color?? 07/01/22 00:30?? Yellow?? UA Appear?? 07/01/22 00:30?? Clear?? UA Glucose?? 07/01/22 00:30?? Negative?? UA Bili?? 07/01/22 00:30?? 1+ Abnormal?? UA Ketones?? 07/01/22 00:30?? Trace Abnormal?? UA Spec Grav?? 07/01/22 00:30?? 1.025?? UA Blood?? 07/01/22 00:30?? Negative?? UA pH?? 07/01/22 00:30?? 5.5?? UA Protein?? 07/01/22 00:30?? Trace Abnormal?? UA Urobilinogen?? 07/01/22 00:30?? Positive Abnormal?? UA Nitrite?? 07/01/22 00:30?? Negative?? UA Leuk Est?? 07/01/22 00:30?? Negative?? UA Culture Ind?.?? 07/01/22 00:30?? Not Indicated? UA Microscopic?? LATEST RESULTS?? UA WBC?? 07/01/22 00:30?? 0-3?? UA RBC?? 07/01/22 00:30?? 0-2?? UA Squam Epithelial?? 07/01/22 00:30?? Rare?? UA Mucous?? 07/01/22 00:30?? Rare Abnormal?? UA Bacteria?? 07/01/22 00:30?? Rare? Electronically Signed on 07/01/22 01:56 AM Damir Noriega MD Emergency department Discharge instructions * Damir Noriega MD: PERFORM Event Display: ED Discharge Information Authored Date: [id number] IVAN GREGORIO :1970 Age:51 years Sex:Female Visit Date:06/30/2022 Primary Care Physician: Paula Barboza MEDICAL DIRECTOR/HEAD TEAM PHYSICIAN Discharge Instructions We would like to thank you for allowing us to assist you with your healthcare needs. The following includes patient education materials and information regarding your injury/illness. Diagnosis from Today's Visit Abdominal pain Cellulitis Discharge Vitals Temperature??(Temporal Artery) 98.1 ??F (36.7 ??C) Heart Rate??(Peripheral) 91 Respiratory Rate?? 14 Blood Pressure?? 113/64?? Height?? 62.99 in (160.000 cm) Weight??(Estimated) 164.27 lb (74.50 kg) Allergies No Known Medication Allergies What to Do Next You Need to Schedule the Following Appointments Follow Up with??Paula Barboza MEDICAL DIRECTOR/HEAD TEAM PHYSICIAN When:??Within 1 to 2 days Where: [facility] [address] [place] [address]- You were treated today on an emergency basis; it may be hebert to contact your primary care provider to notify them of your visit today. You may have been referred to your regular doctor or a specialist, please follow up as instructed. If your condition worsens or you can't get in to see the doctor, contact the Emergency Department. Medications What How Much When Instructions Next Dose New cephalexin (!-Keflex 500 mg oral capsule) 1 Capsules Oral (given by mouth) 4 times a day Duration: 7 Days Printed Prescription Unchanged citalopram (CeleXA) Education Materials Abdominal Pain, Adult Many things can cause belly (abdominal) pain. Most times, belly pain is not dangerous. Many cases of belly pain can be watched and treated at home. Sometimes, though, belly pain is serious. Your doctor will try to find the cause of your belly pain. Follow these instructions at home: Medicines ? Take pohr-csi-hvxeetv and prescription medicines only as told by your doctor. ? Do not take medicines that help you poop (laxatives) unless told by your doctor. General instructions ? Watch your belly pain for any changes. ? Drink enough fluid to keep your pee (urine) pale yellow. ? Keep all follow-up visits as told by your doctor. This is important. Contact a doctor if: ? Your belly pain changes or gets worse. ? You are not hungry, or you lose weight without trying. ? You are having trouble pooping (constipated) or have watery poop (diarrhea) for more than 2???3 days. ? You have pain when you pee or poop. ? Your belly pain wakes you up at night. ? Your pain gets worse with meals, after eating, or with certain foods. ? You are vomiting and cannot keep anything down. ? You have a fever. ? You have blood in your pee. Get help right away if: ? Your pain does not go away as soon as your doctor says it should. ? You cannot stop vomiting. ? Your pain is only in areas of your belly, such as the right side or the left lower part of the belly. ? You have bloody or black poop, or poop that looks like tar. ? You have very bad pain, cramping, or bloating in your belly. ? You have signs of not having enough fluid or water in your body (dehydration), such as: ? Dark pee, very little pee, or no pee. ? Cracked lips. ? Dry mouth. ? Sunken eyes. ? Sleepiness. ? Weakness. ? You have trouble breathing or chest pain. Summary ? Many cases of belly pain can be watched and treated at home. ? Watch your belly pain for any changes. ? Take rrzr-mzk-opbjrxa and prescription medicines only as told by your doctor. ? Contact a doctor if your belly pain changes or gets worse. ? Get help right away if you have very bad pain, cramping, or bloating in your belly. This information is not intended to replace advice given to you by your health care provider. Make sure you discuss any questions you have with your health care provider. Document Revised: 06/17/2019 Document Reviewed: 06/17/2019 [employer] Patient Education ?? 2021 [employer] Tests Performed Medications and Immunizations Administered Given !-Ofirmev, 1000 mg, IV Piggyback Toradol, 15 mg, IV Push Lab Test Name Test Result Date/Time WBC 7.7 x10^3/mcL 06/30/2022 11:55 EDT RBC 4.0 x10^6/mcL 06/30/2022 11:55 EDT Hgb 11.9 g/dL 06/30/2022 11:55 EDT Hct 36.6 % 06/30/2022 11:55 EDT MCV 90.8 fL 06/30/2022 11:55 EDT MCH 29.5 pg 06/30/2022 11:55 EDT MCHC 32.5 g/dL 06/30/2022 11:55 EDT RDW-CV 16.0 % 06/30/2022 11:55 EDT Platelets 362 x10^3/mcL 06/30/2022 11:55 EDT Neutro Auto 79.6 % 06/30/2022 11:55 EDT Lymph Auto 14.7 % 06/30/2022 11:55 EDT Coles Auto 3.6 % 06/30/2022 11:55 EDT Eos, Auto 0.8 % 06/30/2022 11:55 EDT Basophil Auto 0.9 % 06/30/2022 11:55 EDT Imm Gran Auto 0.4 % 06/30/2022 11:55 EDT Neutro Absolute 6.1 x10^3/mcL 06/30/2022 11:55 EDT Sodium Level 140 mmol/L 06/30/2022 11:55 EDT Potassium Level 3.0 mmol/L 06/30/2022 11:55 EDT Chloride Level 103 mmol/L 06/30/2022 11:55 EDT CO2 22 mmol/L 06/30/2022 11:55 EDT Alk Phos 98 unit/L 06/30/2022 11:55 EDT AST 19 unit/L 06/30/2022 11:55 EDT ALT 21 unit/L 06/30/2022 11:55 EDT BUN 9 mg/dL 06/30/2022 11:55 EDT Glucose Level 104 mg/dL 06/30/2022 11:55 EDT Creatinine Level 0.78 mg/dL 06/30/2022 11:55 EDT eGFR AA 91 06/30/2022 11:55 EDT eGFR Non-AA 91 06/30/2022 11:55 EDT Calcium Level 8.7 mg/dL 06/30/2022 11:55 EDT Protein Total 7.9 g/dL 06/30/2022 11:55 EDT Albumin Level 3.6 g/dL 06/30/2022 11:55 EDT Bilirubin Total 0.4 mg/dL 06/30/2022 11:55 EDT Lipase Level 40 unit/L 06/30/2022 11:55 EDT UA Color YELLOW. 07/01/2022 00:30 EDT UA Appear CLEAR. 07/01/2022 00:30 EDT UA Glucose NEGATIVE 07/01/2022 00:30 EDT UA Bili 1+ 07/01/2022 00:30 EDT UA Ketones TRACE. 07/01/2022 00:30 EDT UA Spec Grav 1.025 07/01/2022 00:30 EDT UA Blood NEGATIVE 07/01/2022 00:30 EDT UA pH 5.5 07/01/2022 00:30 EDT UA Protein TRACE. 07/01/2022 00:30 EDT UA Urobilinogen 1.0 Uro 07/01/2022 00:30 EDT UA Nitrite NEGATIVE 07/01/2022 00:30 EDT UA Leuk Est NEGATIVE 07/01/2022 00:30 EDT Patient/Informatica Architect Signature Patient Name:MAE GREGORIOBREN Stewart I have received this information and my questions have been answered. Patient/Informatica Architect Name: Patient/Informatica Architect Signature: Relationship to Patient: Witness Name/Signature: Date: Electronically Signed on: 07/01/2022 01:06 EDTSigned by:[email or web address] Emergency department Note * Bessie Elam M: PERFORM Event Display: ED Notes Authored Date: Patient Care team information Care Team Personnel Name: Paula Barboza NP Position: No Access Member Role: Primary Care Physician Address: Address: [facility] [address] [place] [phone] [place] Name: Venkata Russell RN Position: Nurse Member Role: Registered Nurse Name: Damir Noriega MD Position: Physician Member Role: ED Physician Address: Address: [address] [place] [id number] [place] Care Team Related Persons Name: EMMY VIZCAINO Name: JAQUELINE SAM
== END 2022-08-06 21:25 | disposition short-term general hospital (02) ==
PROVIDERS: Emergency Provider Emergency Medicine; PCP Nurse Practitioner
DX: S06.5XAA Traumatic subdural hemorrhage with loss of consciousness status unknown, initial encounter (principal); S22.42XA Multiple fractures of ribs, left side, initial encounter for closed fracture; F10.929 Alcohol use, unspecified with intoxication, unspecified; X58.XXXA Exposure to other specified factors, initial encounter
CPT/HCPCS: 74177; 80053; 96360; 99285; 70450; 71260; 72125; 80320; 83735; 84703; 85025; J3490

== ENCOUNTER 2023-11-17 18:38 | Emergency (ER) | payer MEDICAID, SELFPAY ==
[2023-11-17 18:42] VITALS: BP 138/93; PULSE 87; RESP 16; TEMP 36.8; O2SAT 97
[2023-11-17 19:10] VITALS: RESP 18
[2023-11-17 19:25] LABS: *AMPHETAMINES SCREEN URINE Negative (Negative); *BARBITURATES SCREEN URINE Negative (Negative); *BENZODIAZEPINES SCREEN URINE Negative (Negative); Cannabinoids THC Negative (Negative); Cocaine Screen,Urine Negative (Negative); METHADONE URINE SCREEN Negative (Negative); OPIATES URINE SCREEN Negative (Negative)
[2023-11-17 19:27] LABS: Tricyclic Antidepressants Positive (Negative)
--- NOTE | 2023-11-17 19:39 | ED.GENADUL_ITS ---
Discharge Plan Disposition Patient Disposition: [facility] Condition: Stable Discharge Details Chief Complaint: GenMedical Clinical Impression: Alcohol intoxication Primary Care Provider: Paula Barboza ED Provider: Raymond Houston Meds and New Rx's Prescriptions: No Action citalopram 40 mg tablet 40 mg PO DAILY Qty: 90 3RF albuterol sulfate 2.5 mg /3 mL (0.083 %) solution for nebulization 2.5 mg inhalation Q4H PRN (Reason: shortness of breath or wheezing) Qty: 180 3RF hydroxyzine HCl 25 mg tablet 25 mg PO TID PRN (Reason: anxiety) Qty: 180 1RF lisinopril 10 mg tablet 10 mg PO DAILY Qty: 90 3RF propranolol 20 mg tablet 20 mg PO BID Qty: 180 1RF albuterol sulfate [ProAir HFA] 90 mcg/actuation HFA aerosol inhaler 2 puff Inhalation Q4H PRN Qty: 18 12RF Rx Instructions: 2 puffs QID PRN. Dispense covered brand. Spiriva Respimat 1.25 mcg/actuation mist 2 puff inhalation DAILY Qty: 4 12RF clobetasol-emollient 15 GM cream 1 applic Topical DAILY PRNQty: 60 Rx Instructions: Apply to hands PRN (DME) POCKET CHAMBER Spacer See Rx Instructions .ROUTE .MEDSUPPLY Qty: 1 0RF Rx Instructions: As directed trazodone 50 mg tablet See Rx Instructions .ROUTE .COMPLEX Qty: 135 1RF Dose Instruction: TAKE 1 & 1/2 TABLETS BY MOUTH DAILY AT BEDTIME NEEDED FOR SLEEP Rx Instructions: TAKE 1 & 1/2 TABLETS BY MOUTH DAILY AT BEDTIME NEEDED FOR SLEEP doxepin 25 mg capsule 25 mg PO BID Qty: 60 0RF quetiapine 100 mg tablet See Rx Instructions .ROUTE .COMPLEX Qty: 135 0RF Dose Instruction: TAKE 1 & 1/2 TABLETS BY MOUTH AT BEDTIME DAILY Rx Instructions: TAKE 1 & 1/2 TABLETS BY MOUTH AT BEDTIME DAILY (DME) nebulizers Mis See Rx Instructions .ROUTE .MEDSUPPLY Qty: 1 0RF Rx Instructions: As directed Discharge Instructions Instructions: Alcohol Intoxication ED Additional Instructions: Please follow with your primary care physician. Please return to the emerged part for any worsening symptoms HPI General Date/Time Provider Initiated Documentation: 11/17/23 18:59 . HPI Narrative: Patient brought in for evaluation of public intoxication, police were called by her daughters neighbor for disturbance. Patient denies any traumatic injury denies any medical complaints at this time. Please requesting medical screening examination so that she can be taken into police custody Related Data Home Medications ?Medication ?Instructions ?Recorded ?Confirmed clobetasol-emollient 0.05 % 1 applic topical DAILY PRN #60 12/08/16 11/17/23 topical cream grams inhalational spacing device #1 ea 09/28/20 11/17/23 (POCKET CHAMBER spacer) nebulizers #1 ea 03/16/21 11/17/23 albuterol sulfate 2.5 mg/3 mL 2.5 mg (3 mL) inhalation Q4H PRN 01/10/23 11/17/23 (0.083 %) solution for nebulization shortness of breath or wheezing #180 mL albuterol sulfate 90 mcg/actuation 2 puff inhalation Q4H PRN #18 grams 01/10/23 11/17/23 aerosol inhaler (ProAir HFA) citalopram 40 mg tablet 40 mg PO DAILY #90 tabs 01/10/23 11/17/23 hydroxyzine HCl 25 mg tablet 25 mg PO TID PRN anxiety #180 tabs 01/10/23 11/17/23 lisinopril 10 mg tablet 10 mg PO DAILY #90 tab-caps 01/10/23 11/17/23 propranolol 20 mg tablet 20 mg PO BID #180 tabs 01/10/23 11/17/23 tiotropium bromide 1.25 2 puff inhalation DAILY #4 grams 01/10/23 11/17/23 mcg/actuation mist for inhalation (Spiriva Respimat) trazodone 50 mg tablet See Rx Instructions .Route 07/03/23 11/17/23 .COMPLEX #135 tabs doxepin 25 mg capsule 25 mg PO BID #60 caps 10/02/23 11/17/23 quetiapine 100 mg tablet See Rx Instructions .Route 10/17/23 11/17/23 .COMPLEX #135 tabs Previous Rx's ?Medication ?Instructions ?Recorded inhalational spacing device #1 ea 09/28/20 (POCKET CHAMBER spacer) nebulizers #1 ea 03/16/21 albuterol sulfate 2.5 mg/3 mL 2.5 mg (3 mL) inhalation Q4H PRN 01/10/23 (0.083 %) solution for nebulization shortness of breath or wheezing #180 mL albuterol sulfate 90 mcg/actuation 2 puff inhalation Q4H PRN #18 grams 01/10/23 aerosol inhaler (ProAir HFA) citalopram 40 mg tablet 40 mg PO DAILY #90 tabs 01/10/23 hydroxyzine HCl 25 mg tablet 25 mg PO TID PRN anxiety #180 tabs 01/10/23 lisinopril 10 mg tablet 10 mg PO DAILY #90 tab-caps 01/10/23 propranolol 20 mg tablet 20 mg PO BID #180 tabs 01/10/23 tiotropium bromide 1.25 2 puff inhalation DAILY #4 grams 01/10/23 mcg/actuation mist for inhalation (Spiriva Respimat) trazodone 50 mg tablet See Rx Instructions .Route 07/03/23 .COMPLEX #135 tabs doxepin 25 mg capsule 25 mg PO BID #60 caps 10/02/23 quetiapine 100 mg tablet See Rx Instructions .Route 10/17/23 .COMPLEX #135 tabs Allergies Allergy/AdvReac Type Severity Reaction Status Date / Time oxycodone AdvReac Unknown TERRIBLE Verified 11/17/23 18:46 DREAMS General Stated Complaint: ETOHWithdr ALISTAIR: 4 Exam Narrative Exam Narrative: Alert oriented interactive nontoxic Moist mucous membranes tolerating secretions Speaking full sentences no respiratory distress, no tachypnea no cyanosis No evidence of thoracoabdominal or facial trauma Ambulatory without assistance no ataxia cranial nerves II through XII intact 5/5 strength upper lower extremities bilaterally No signs of ecchymosis or edema Moving all extremities without deficit no signs of trauma Calm cooperative interactive Course Vital Signs Vital signs: Vital Signs Temperature 36.8 C 11/17/23 18:42 Pulse 87 11/17/23 18:42 Respiratory Rate 16 11/17/23 18:42 Blood Pressure 138/93 H 11/17/23 18:42 Pulse Oximetry 97 11/17/23 18:42 Temperature 36.8 C 11/17/23 18:42 Pulse 87 11/17/23 18:42 Respiratory Rate 18 11/17/23 19:10 Respiratory Effort Normal 11/17/23 19:10 Respiratory Depth Normal 11/17/23 19:10 Respiratory Pattern Normal 11/17/23 19:10 Blood Pressure 138/93 H 11/17/23 18:42 Pulse Oximetry 97 11/17/23 18:42 Pain Level 0 11/17/23 18:42 Lab/Test Results Lab/Test Results: Laboratory Tests Range/Units 11/17/23 18:45 Urine Opiates Screen (Negative) Negative Urine Methadone Screen (Negative) Negative Ur Barbiturates Screen (Negative) Negative Ur Tricyclics Screen (Negative) Positive A Ur Amphetamines Screen (Negative) Negative U Benzodiazepines Scrn (Negative) Negative Urine Cocaine Screen (Negative) Negative Ur THC Screen (Negative) Negative POC- Test(urine) Negative Medical Decision Making Patient brought in for evaluation of public intoxication, police were called by her daughters neighbor for disturbance. Patient denies any traumatic injury denies any medical complaints at this time. Please requesting medical screening examination so that she can be taken into police custody. Hemodynamically stable afebrile nontoxic neurologically intact no signs of trauma no signs of infection. Calm cooperative appropriate mood and affect. Patient does endorse heavy drinking earlier today. Endorses that her daughter's neighbor called the police on her prior to presentation. Per collateral information patient was brought in for medical screening as she was found to be publicly intoxicated. Patient lives alone, her car is at her daughter's house the police have taken her keys and are planning to take her into custody pending screening examination. Patient displaying signs of mild alcohol intoxication currently. No evidence of selfinjorous behavior or danger to others, no evidence of withdrawal. Patient medically cleared for discharge Quality:SDOH Health Related Social Needs: No Data to Display PFSH All Active Problems (Updated 11/17/23 @ 19:45 by Raymond Houston MD) Alcohol intoxication (Acute) Left axillary swelling (Acute ~07/2022) 07/21/22 Gen Surgery Alcohol abuse (Chronic) Heavy menses (Acute) Encounter for screening colonoscopy (Acute) Anemia (Chronic) Anxiety (Chronic) DUB (dysfunctional uterine bleeding) (Acute) Depression (Chronic 04/03/15) Sertaline in the past with good relief of sx but then developed intolerable adverse rxns (nausea, flushing) Started on venlafaxine 03/2015 PHQ9 score = 9, indicating mild depression 03/2015 Chronic pain (Acute 02/20/09) chronic tramadol rx, back pain, sciatica despite LS surg 2009. Impaired fasting blood sugar (Acute 08/01/05) Obesity, unspecified (Acute 05/31/11) Atypical squamous cells of undetermined significance (ASC-US) on cervical Pap smear (Acute 08/05/09) ASCUS 08/05/09; 05/31/2011 Spinal stenosis of lumbar region (Acute 01/11/10) LS spine surg; Mitzy Hughes, Dr Cortes Tobacco dependence (Acute 08/01/05) Medical History (Updated 11/17/23 @ 19:45 by Raymond Houston MD) HTN (hypertension), benign Tobacco use disorder Spinal stenosis Lumbar region Surgical History Back surgery L5-S1 decompression 2009 Family History Mother , lung cancer at age 50. No problems noted. Father , MVA No problems noted. Other Lung cancer Social History Smoking/Tobacco Use Status: Current every day Tobacco Type: cigarettes Smoking risk assessment performed?: Yes Alcohol Intake: current Alcohol Intake frequency: 3 or more drinks per day Alcohol type: beer and hard liquor Drug use: Never Substance use type: does not use Do you feel safe at home: Yes Do you feel safe in your relationship?: Yes PAWSS Have you Been Recently Intoxicated or Drunk Within the Last 30 days?: Yes Have you Ever Experienced Previous Episodes of Alcohol Withdrawal?: Yes Have you ever Experienced Withdrawal Seizures?: No Have you ever Experienced Delirium Tremens(DT)s?: No Have you ever undergone Alcohol Rehabilitation Treatment (i.e, inpt ot outpatient treatment programs)?: No Have you ever Experienced Blackouts?: No Have you ever Combined Alcohol with other Downers within the last 90 days?: No Have you ever Combined Alcohol with any other Substance of Abuse during the last 90 days?: No Positive Blood Alcohol level on Presentation? [PCS.BAL]: No Evidence of Increased Autonomic Activity (i.e. HR>120, tremor, sweating, agitation, nausea)?: No Result: 2
== END 2023-11-17 19:39 ==
PROVIDERS: Emergency Provider Emergency Medicine; PCP Nurse Practitioner
DX: F10.120 Alcohol abuse with intoxication, uncomplicated (principal); I10 Essential (primary) hypertension
CPT/HCPCS: 80307; 81025; 82962; 99283

== ENCOUNTER 2024-03-10 19:53 | Emergency (ER) | payer MEDICAID, SELFPAY ==
[2024-03-10] VITALS (30 sets, daily range): BP systolic 140–184; BP diastolic 91–127; PULSE 88–103; RESP 11–30; TEMP 35.7–36.2; O2SAT 88–99
--- NOTE | 2024-03-10 20:00 | DI.CT_ITS ---
Exam(s) CT ABDOMEN PELVIS W EXAM: CT ABDOMEN PELVIS W CLINICAL HISTORY: RUQ pain radiating to shoulder, hx splenic rupture. TECHNIQUE: Imaging Protocol: Axial computed tomography images with coronal and sagittal reformatted images were created and reviewed CONTRAST MATERIAL: Intravenous: Omnipaque-350 75cc Oral: None COMPARISON: CT CT CHEST PE ABD PELVIS W from 03/16/[address] CHEST/ABD/PEL W from 08/06/2022 FINDINGS: VISUALIZED LUNG BASES: No infiltrates nor pleural effusions nor ominous nodules evident in the lung b ases.. There is a E partially healed nondisplaced fracture the lateral aspect of the right 8th rib.. This was not evident on CT scan of July 2022. No other right rib fractures identified. There are previously described fractures again noted in the left 11th rib (healed), 10th rib and 9th rib. Thes e were previously present. No pleural effusions and no pneumothorax evident. ABDOMEN: There is a small amount of ascites in the dependent aspect of pelvis. LIVER: There are no focal hepatic lesions evident. No dilated intrahepatic ducts. GALLBLADDER/BILIARY: No obvious gallbladder pathology. CBD is not dilated. PANCREAS: Pancreatic head neck and body appear unremarkable but there are cystic findings in the panc reatic tail region, not previously present SPLEEN: Again noted is evidence of previous embolization of the spleen for trauma in 2022. The previ ously present prominent subcapsular hematoma in the spleen has significantly decreased in size. Ther e is heterogeneous enhancement of the spleen which is probably related to prior injury/injuries as we ll as embolization. There is also abnormal collection adjacent to the superolateral aspect of the sp terry and this appears to communicate with the collection in the region of this tail of the pancreas. Suspect abscess. ADRENALS: There are no significant adrenal masses. KIDNEYS:No cysts evident. No solid renal masses. No calculi nor hydronephrosis.. ABDOMINAL AORTA: Abdominal aorta is not enlarged. LYMPH NODES:There is no retroperitoneal nor paraaortic adenopathy. ABDOMINAL WALL: No evidence of significant anterior abdominal wall nor inguinal hernia. GI: There is some streaking around the: Just above the splenic flexure (series 9/images 15-18). This was not evident on CT scan of 2022. There are no obvious diverticuli in this region. PELVIS: GI: No evidence of appendicitis.No evidence of sigmoid diverticulitis. LYMPH NODES: There is no intrapelvic nor inguinal adenopathy. REPRODUCTIVE: Partially calcified uterine fibroids again noted. One of these is again noted be exoph ytic. URINARY BLADDER: No calculi nor obvious masses evident OSSEOUS: No fractures evident in the pelvis and no significant osseous lesions. IMPRESSION: 1. 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 The p reviously present large subcapsular hematoma in the spleen is no longer seen. However, the spleen en hances in somewhat in homogeneous fashion which is either related to the embolization procedure or in terval re-injury. 2. In addition to the above findings in the spleen there is also an abnormal fluid collection which e xtends from above to medial to the spleen and continuous to the pancreatic tail, and extending to the inferior aspect of the dome of the left hemidiaphragm (which is thickened). First consideration is that this is a subdiaphragmatic abscess which measures approximately 7 cm length by a 1 cm and extend s from just above the spleen-subdiaphragmatic area down to involve the pancreatic tail. Other consid eration are for post pancreatitis pseudocyst. However, there was no evidence of pancreatitis on the prior CT scan of July 2022. 3. There is also some abnormal fat streaking adjacent to the superior wall of the splenic flexure of the colon. Cannot exclude subtle diverticulitis at this level. 4. There is some free fluid in the dependent aspect of the pelvis. I suspect that this is related to one of the above 2 abnormal findings in the left upper quadrant, or possibly related to both abnorma l left upper quadrant findings.. First read by [facility]. Final report called by myself to ER provider 03/11/2024. Patient was apparently transferred to [facility] I have requested that this report be sent to the treating physician at that institution RADIATION DOSE DELIVERED: 492.91mGy.cm Total DLP DATA REPOSITORY: All CT scans at this facility are submitted to the National Radiology Data Registry (NRDR) Dose Index Registry (DIR) with the [employer] ([employer]). RADIATION OPTIMIZATION: All CT scans at this facility use at least one of these dose optimization te chniques: automated exposure control; mA and/or kV adjustment per patient size (includes targeted exa ms where dose is matched to clinical indication); or iterative reconstruction.
--- NOTE | 2024-03-10 20:00 | RT.EKG_ITS ---
APPROVED REPORT Exam: Resting ECG Reason for Exam: LUQ pain Patient Location: E HR:92 bpm ECG Measurements Heart Rate 92 AXIS WI 150 P 59 QRSd 90 QRS 55 QT 360 T 49 QTc 446 Conclusion Sinus rhythm, rate 92 No interval abnormalities No STEMI Artifact present No STEMI Compared to priors, QTc shortened
--- NOTE | 2024-03-10 20:08 | W.ED.GENAD ---
Discharge Plan Discharge Details Chief Complaint: FlankPain Clinical Impression: Perisplenic hematoma, Anemia, Intra abdominal hemorrhage, Alcohol use disorder, COPD (chronic obstructive pulmonary disease) Primary Care Provider: Paula Barboza ED Provider: Shirley Marquez Home Meds and New Rx's Prescriptions: No Action lisinopril 20 mg tablet 20 mg PO DAILY Qty: 90 3RF citalopram 40 mg tablet 40 mg PO DAILY Qty: 90 3RF propranolol 20 mg tablet 20 mg PO BID Qty: 180 1RF Spiriva Respimat 1.25 mcg/actuation mist 2 puff inhalation DAILY Qty: 4 12RF quetiapine 100 mg tablet See Rx Instructions .ROUTE .COMPLEX Qty: 135 0RF Dose Instruction: TAKE 1 & 1/2 TABLETS BY MOUTH AT BEDTIME DAILY Rx Instructions: TAKE 1 & 1/2 TABLETS BY MOUTH AT BEDTIME DAILY (DME) Hand Held Nebulizer See Rx Instructions .Route .MEDSUPPLY Qty: 1 0RF Rx Instructions: As directed albuterol sulfate 2.5 mg /3 mL (0.083 %) solution for nebulization 2.5 mg inhalation Q4H PRN (Reason: shortness of breath or wheezing) Qty: 180 3RF hydroxyzine HCl 25 mg tablet 25 mg PO TID PRN (Reason: anxiety) Qty: 180 1RF clobetasol-emollient 15 GM cream 1 applic Topical DAILY PRNQty: 60 Rx Instructions: Apply to hands PRN (DME) POCKET CHAMBER Spacer See Rx Instructions .ROUTE .MEDSUPPLY Qty: 1 0RF Rx Instructions: As directed doxepin 25 mg capsule See Rx Instructions .ROUTE .COMPLEX Qty: 60 5RF Dose Instruction: TAKE ONE CAPSULE BY MOUTH TWICE A DAY Rx Instructions: TAKE ONE CAPSULE BY MOUTH TWICE A DAY albuterol sulfate [Ventolin HFA] 90 mcg/actuation HFA aerosol inhaler See Rx Instructions .ROUTE .COMPLEX Qty: 18 12RF Dose Instruction: INHALE TWO PUFFS BY MOUTH EVERY 4 HOURS NEEDED Rx Instructions: INHALE TWO PUFFS BY MOUTH EVERY 4 HOURS NEEDED trazodone 50 mg tablet See Rx Instructions .ROUTE .COMPLEX Qty: 135 1RF Dose Instruction: TAKE 1 & 1/2 TABLETS BY MOUTH DAILY AT BEDTIME NEEDED FOR SLEEP Rx Instructions: TAKE 1 & 1/2 TABLETS BY MOUTH DAILY AT BEDTIME NEEDED FOR SLEEP (DME) nebulizers Misc See Rx Instructions .ROUTE .MEDSUPPLY Qty: 1 0RF Rx Instructions: As directed HPI General Mode of arrival: ambulatory. Date/Time Provider Initiated Documentation: 03/10/24 19:56. Limitations to Documentation: no limitations. Information obtained by: patient, family and old records reviewed. HPI Narrative: HPI: This is a 53-year-old female patient with a past medical history significant for COPD, alcohol use, anemia, history of splenic rupture after rib fractures, status post embolization, who is presenting for evaluation of left upper quadrant and flank pain. She reports that the pain started suddenly last night while she was sitting playing on her phone, and feels very similar to her prior splenic injury. The pain radiates to her shoulder, and is worse with palpation, movement, and supine positioning. She has not noted any associated symptoms such as fever, chills, shortness of breath, chest pain, nausea, vomiting, diarrhea, constipation, or dysuria. Has not sustained any recent trauma. Has not taken any medications in the outpatient environment for management of the symptoms. Exam: Gen: Awake and alert, appears uncomfortable HEENT: Non-icteric sclera Neck: Supple Lungs: No apparent respiratory distress though the patient is noted to be tachypneic, normal respiratory effort. Lung sounds clear and equal bilaterally without wheezes, rhonchi, rales CV: Appears well perfused, heart with regular rate and rhythm, strong distal pulses Abdomen: Non-distended, soft, significant tenderness with guarding of the left upper quadrant, no overlying skin changes, no rigidity of the abdomen appreciated. CVA tenderness is not present. MSK: Moves 4 extremities without apparent limitation in ROM. No tenderness to palpation of the T or L-spine, no step-offs. Skin: Visualized skin without rashes, cyanosis. Neuro: Antalgic gait, no obvious focal deficits or facial asymmetry. Speaks in full, clear sentences. Psych: Appropriate for situation. MDM: This is a 53-year-old female patient presenting for evaluation of 1 day of severe left upper quadrant abdominal pain radiating to her shoulder. My differential includes but is not limited to splenic injury/infarct, hemoperitoneum, certainly considered PUD and gastritis, pancreatitis, kidney stone, pyelonephritis, and other intra-abdominal abnormalities including cholecystitis, appendicitis, diverticulitis, mesenteric ischemia bowel obstruction. I considered ACS, as well as lower lobe pneumonias, pneumothorax and COPD exacerbation, though the patient is reassuringly without hypoxia, reported difficulty breathing, or evidence of focal lung findings on exam. I will provide the patient with a dose of Dilaudid for initial management of pain, obtain laboratory studies to include CBC, CMP, troponin, lipase, and urinalysis. Will obtain a CT abdomen pelvis with contrast to better characterize any abnormalities which might be causing the patient's symptoms. We will obtain an EKG. ED Course: I reviewed the patient's laboratory studies, which show a white blood cell count of 11.5, a new anemia to 8.6 though notably I do not have recent laboratory studies to compare this to. She has a mild thrombocytosis to 502, chemistry panel demonstrates a mild hyperkalemia to 5.4 without evidence of EKG abnormality, BUN 24 and creatinine 1.0, no evidence for liver dysfunction. Troponin was negative x 2 checks, lipase slightly elevated at 119. Urine is noninfectious and without hematuria. I reviewed the CAT scan and discussed the results with the radiologist, and the patient is noted to have an area of fluid collection within the perisplenic and perisplenic region, concerning for new hemorrhage or developing abscess. She also has fluid collecting in the dependent area of the pelvis, a small pancreatic tail pseudocyst, all of which is concerning for a potential spontaneous splenic bleed, less likely abscess in this patient without fever, tachycardia, or significant white blood cell count elevation, or pseudocyst rupture/leak. I did add on a Monospot which was negative. Type and screen obtained and pending. I spoke with our general surgeon as well as our hospitalist, and after discussing this patient's case, they feel that this patient would require ICU level of care for frequent laboratory studies, serial abdominal examinations, and potential management of alcohol withdrawal given this patient's daily alcohol use, and unfortunately there are no ICU beds available in our hospital at this time. I did reach out to [facility] who is at capacity and not accepting transfers, as well as [facility]. Unfortunately, [facility] is also at capacity and requires their kitchen work supervisor to review any transfer request. I signed out care of the patient to the oncoming provider prior to final disposition. While under my care she remained hemodynamically appropriate, with improvement though not of her pain. Shirley Marquez MD Related Data Home Medications ?Medication ?Instructions ?Recorded ?Confirmed clobetasol-emollient 0.05 % 1 applic topical DAILY PRN #60 12/08/16 03/10/24 topical cream grams inhalational spacing device #1 ea 09/28/20 03/10/24 (POCKET CHAMBER spacer) nebulizers #1 ea 03/16/21 03/10/24 albuterol sulfate 2.5 mg/3 mL 2.5 mg (3 mL) inhalation Q4H PRN 01/10/23 03/10/24 (0.083 %) solution for nebulization shortness of breath or wheezing #180 mL hydroxyzine HCl 25 mg tablet 25 mg PO TID PRN anxiety #180 tabs 01/10/23 03/10/24 Hand Held Nebulizer #1 ea 11/27/23 03/10/24 citalopram 40 mg tablet 40 mg PO DAILY #90 tabs 11/27/23 03/10/24 lisinopril 20 mg tablet 20 mg PO DAILY #90 tab-caps 11/27/23 03/10/24 propranolol 20 mg tablet 20 mg PO BID #180 tabs 11/27/23 03/10/24 quetiapine 100 mg tablet See Rx Instructions .Route 11/27/23 03/10/24 .COMPLEX #135 tabs tiotropium bromide 1.25 2 puff inhalation DAILY #4 grams 11/27/23 03/10/24 mcg/actuation mist for inhalation (Spiriva Respimat) albuterol sulfate 90 mcg/actuation See Rx Instructions .Route 01/22/24 03/10/24 aerosol inhaler (Ventolin HFA) .COMPLEX #18 grams doxepin 25 mg capsule See Rx Instructions .Route 01/22/24 03/10/24 .COMPLEX #60 caps trazodone 50 mg tablet See Rx Instructions .Route 01/22/24 03/10/24 .COMPLEX #135 tabs Previous Rx's ?Medication ?Instructions ?Recorded inhalational spacing device #1 ea 09/28/20 (POCKET CHAMBER spacer) nebulizers #1 ea 03/16/21 albuterol sulfate 2.5 mg/3 mL 2.5 mg (3 mL) inhalation Q4H PRN 01/10/23 (0.083 %) solution for nebulization shortness of breath or wheezing #180 mL hydroxyzine HCl 25 mg tablet 25 mg PO TID PRN anxiety #180 tabs 01/10/23 Hand Held Nebulizer #1 ea 11/27/23 citalopram 40 mg tablet 40 mg PO DAILY #90 tabs 11/27/23 lisinopril 20 mg tablet 20 mg PO DAILY #90 tab-caps 11/27/23 propranolol 20 mg tablet 20 mg PO BID #180 tabs 11/27/23 quetiapine 100 mg tablet See Rx Instructions .Route 11/27/23 .COMPLEX #135 tabs tiotropium bromide 1.25 2 puff inhalation DAILY #4 grams 11/27/23 mcg/actuation mist for inhalation (Spiriva Respimat) albuterol sulfate 90 mcg/actuation See Rx Instructions .Route 01/22/24 aerosol inhaler (Ventolin HFA) .COMPLEX #18 grams doxepin 25 mg capsule See Rx Instructions .Route 01/22/24 .COMPLEX #60 caps trazodone 50 mg tablet See Rx Instructions .Route 01/22/24 .COMPLEX #135 tabs Allergies Allergy/AdvReac Type Severity Reaction Status Date / Time oxycodone AdvReac Unknown TERRIBLE Verified 03/11/24 00:08 DREAMS General Stated Complaint: FlankPain ALISTAIR: 3 Course Vital Signs Vital signs: Vital Signs Temperature 35.7 C L 03/10/24 19:55 Pulse 91 H 03/10/24 19:55 Respiratory Rate 30 H 03/10/24 19:55 Pulse Oximetry 96 03/10/24 19:55 Temperature 36.2 C L 03/10/24 20:01 Pulse 96 H 03/10/24 20:01 Respiratory Rate 20 03/10/24 20:01 Pulse Oximetry 99 03/10/24 20:01 Oxygen Delivery Method Room Air 03/10/24 19:55 Oxygen Flow Rate 0 03/10/24 19:55 Pain Level 10 03/10/24 20:01 Medical Decision Making Quality:SDOH Health Related Social Needs: No Data to Display PFSH All Active Problems (Updated 03/11/24 @ 00:15 by Shirley Marquez MD) COPD (chronic obstructive pulmonary disease) (Chronic) Alcohol use disorder (Acute) Intra abdominal hemorrhage (Acute) Anemia (Chronic) Perisplenic hematoma (Acute) Left axillary swelling (Acute ~07/2022) 07/21/22 Gen Surgery Alcohol abuse (Chronic) Heavy menses (Acute) Encounter for screening colonoscopy (Acute) Anemia (Chronic) Anxiety (Chronic) DUB (dysfunctional uterine bleeding) (Acute) Depression (Chronic 04/03/15) Sertaline in the past with good relief of sx but then developed intolerable adverse rxns (nausea, flushing) Started on venlafaxine 03/2015 PHQ9 score = 9, indicating mild depression 03/2015 Chronic pain (Acute 02/20/09) chronic tramadol rx, back pain, sciatica despite LS surg 2009. Impaired fasting blood sugar (Acute 08/01/05) Obesity, unspecified (Acute 05/31/11) Atypical squamous cells of undetermined significance (ASC-US) on cervical Pap smear (Acute 08/05/09) ASCUS 08/05/09; 05/31/2011 Spinal stenosis of lumbar region (Acute 01/11/10) LS spine surg; Mitzy Hughes, Dr Cortes Tobacco dependence (Acute 08/01/05) Medical History (Updated 03/11/24 @ 00:15 by Shirley Marquez MD) HTN (hypertension), benign Tobacco use disorder Spinal stenosis Lumbar region Surgical History Back surgery L5-S1 decompression 2009 Family History Mother , lung cancer at age 50. No problems noted. Father , MVA No problems noted. Other Lung cancer Social History Smoking/Tobacco Use Status: Current every day Tobacco Type: cigarettes Smoking risk assessment performed?: Yes Alcohol Intake: current Alcohol Intake frequency: 3 or more drinks per day Alcohol type: beer and hard liquor Drug use: Never Substance use type: does not use Housing: apartment Do you feel safe at home: Yes Do you feel safe in your relationship?: Yes
[2024-03-10 20:32] LABS: Abs Immature Grans 0.03 10^3/uL (0.0-0.06); Absolute Basophil Count 0.09 10^3/uL (0.0-0.2); Absolute Lymphocyte Count 1.67 10^3/uL (1.2-3.4); Basophils % 0.8 %; Eosinophils % 1.6 %; HCT 30.4 % (36.0-46.0); HGB 8.6 g/dL (11.2-15.7); Immature Grans % 0.3 %; Lymphocytes % 14.4 %; MCHC 28.3 % (32.0-36.0); MCV 74 fL (80-95); MPV 9.5 fL (8.0-11.0); Monocytes % 8.6 %; Neutrophils % 74.3 %; Platelet Count 502 10^3/uL (130-400); RDW 18.8 % (11.7-14.6); RDW-SD 49.9 fL; WBC 11.59 10^3/uL (4.4-10.8)
[2024-03-10 20:33] LABS: Absolute Eosinophil Count 0.19 10^3/uL (0.0-0.7); Absolute Neutrophil Count 8.61 10^3/uL (1.2-6.7)
[2024-03-10 20:42] LABS: Prothrombin Time 10.4 sec (9.1-11.1)
[2024-03-10] MEDS: HYDROmorphone 2 MG/ML SYR 0.5 MG IVP ×2 (20:45→22:35)
[2024-03-10 20:46] LABS: Diff Comment RBC Morph Reviewed
[2024-03-10 20:47] LABS: Anisocytosis 1+; Hypochromasia 1+; Microcytosis 1+
[2024-03-10 20:48] LABS: ALT 13 U/L (14-59); AST 13 U/L (15-37); Albumin 3.8 g/dL (3.4-5.0); Alkaline Phosphatase 92 U/L (46-116); Anion Gap 6.8 mmol/L (3-11); BUN 24 mg/dL (7-18); Bilirubin, Total 0.37 mg/dL (0.2-1.0); CO2 27.2 mmol/L (21.0-32.0); Chloride 103 mmol/L (98-107); Estimated GFR 66.53 (mL/min/1.73m2); Glucose 106 mg/dL (74-106); Lipase 119 U/L (<78); Potassium 5.4 mmol/L (3.5-5.1); Sodium 137 mmol/L (136-145); Total Protein 8.5 g/dL (6.4-8.2); Troponin I 21 ng/L (<or=51)
[2024-03-10 20:56] LABS: Calcium 9.2 mg/dL (8.5-10.1)
[2024-03-10] MEDS: LORazepam 2 MG/ML VIAL 0.5 MG IVP (21:00)
[2024-03-10 21:06] LABS: Bilirubin Negative (Negative); Blood Negative (Negative); Clarity Sl Cloudy (Clear); Glucose Negative (Negative); Ketones Negative (Negative); Leukocyte Esterase Negative (Negative); Nitrite Negative (Negative); Specific Gravity 1.025 (1.005-1.025); Urobilinogen 0.2 mg/dL (Up to 0.2); pH 5.5 (5-8)
[2024-03-10] MEDS: Omnipaque 350 MG/ML 100 ML BTL IJ (21:16)
[2024-03-10] MEDS: Normal Saline Flush 10 ML SYR IVP (21:18)
[2024-03-10] MEDS: Normal Saline - Diluent 50 ML VIAL IJ (21:18)
[2024-03-10] MEDS: ACETAMINOPHEN 1,000 MG/100 ML BAG 400 MG IVPB (22:34)
--- NOTE | 2024-03-10 22:47 | DI.VRAD_ITS ---
Addendum created by Oscar George MD on 03/10/2024 10:47:08 PM EST: THIS REPORT CONTAINS FINDINGS THAT MAY BE CRITICAL TO PATIENT CARE. The findings were verbally communicated via telephone conference with Shirley Marquez at 10:46 PM EST on 03/10/2024. The findings were acknowledged and understood. Initial report created on 03/10/2024 10:46:36 PM EST: PROCEDURE INFORMATION: Exam: CT Abdomen And Pelvis With Contrast Exam date and time: 03/10/2024 9:06 PM Age: 53 years old Clinical indication: Abdominal pain; Localized; Right upper quadrant (ruq); Prior surgery; Surgery date: 6+ months; Surgery type: Spleen; Patient HX: Ruq pain radiating to shoulder, HX splenic rupture TECHNIQUE: Imaging protocol: Computed tomography of the abdomen and pelvis with contrast. Radiation optimization: All CT scans at this facility use at least one of these dose optimization techniques: automated exposure control; mA and/or kV adjustment per patient size (includes targeted exams where dose is matched to clinical indication); or iterative reconstruction. Contrast material: OMNIPAQUE 350; Contrast volume: 75 ml; Contrast route: INTRAVENOUS (IV); COMPARISON: CT CHEST/ABD/PEL W 08/06/2022 6:55 PM FINDINGS: Lungs: The lungs are normal. Pleural spaces: There is no evidence of pneumothorax. There are no pleural effusions present. Heart: The cardiac structures are normal. Coronary arteries: No evidence of coronary artery atherosclerotic plaque or calcification. Liver: There is a diffuse decrease in hepatic parenchymal density, consistent with mild fatty infiltration. There are no focal liver lesions present. There is no evidence of intrahepatic or extrahepatic biliary ductal dilation. Gallbladder and biliary ducts: The gallbladder is normal. There is no cholelitiasis, wall thickening or pericholecystic fluid to suggest cholecystitis. Pancreas: Low-attenuation area within the tail of the pancreas may represent small pseudocysts. Spleen: There is evidence of prior injury to the spleen on 08/05/2022. There are persistent areas of low-attenuation within the splenic pulp consistent with lacerations , scarring and possible infarction. There is an mixed attenuation fluid collection within the parasplenic and perisplenic region anteriorly extending to the lateral aspect of the superior portion of the spleen.There is a moderate amount of free fluid present within the dependent portion of the pelvis which is new. I cannot rule out additional injury or re-injury to the spleen. Adrenal glands: The adrenal glands are normal. Kidneys and ureters: The kidneys are normal. The ureters are normal caliber and follow a normal caliber and course. Stomach and bowel: There is no evidence of intestinal obstruction. Possible gastric thickening There are fluid-filled loops of small bowel with air-fluid levels. No significant bowel wall thickening or inflammatory changes. No evidence of obstruction. Consider early gastroenteritis. Appendix: A normal appendix is identified. There is no evidence of distention or periappendiceal inflammation to suggest appendicitis. Intraperitoneal space: There is free fluid in the pelvis in the perisplenic region. Vasculature: [id number] atherosclerosis of the abdominal aorta. No evidence of aneurysmal dilatation. No evidence of dissection. Probable embolic device within the splenic hilum likely representing a small Amplatzer device. The inferior venacava appears normal. The portal vein appears unremarkable Lymph nodes: No enlarged lymph nodes. Urinary bladder: The bladder is normal. Reproductive: The uterus is heterogeneous in attenuation with small masses consistent with uterine fibroids. Calcified pedunculated uterine fibroids present. Bones/joints: There are old rib fractures the left-sided ribs with areas of nonunion and malunion. Old healed fractures of the right lower ribs. The thoracolumbar spine demonstrates moderate degenerative changes at multiple levels.The skeletal structures and soft tissues show no evidence of fracture or other acute processes. Soft tissues: The extra-abdominal soft tissues are normal. Other findings: There is a small thick walled fluid collection present best demonstrated on images 32 series 11 and image 38 series 5. Consider possible developing abscess. IMPRESSION: 1. There is evidence of prior injury to the spleen with embolization on 08/05/2022. Probable embolic device within the splenic hilum likely representing a small Amplatzer device. There are persistent areas of low-attenuation within the splenic pulp consistent with lacerations , scarring and possible infarction. There is an mixed attenuation fluid collection within the parasplenic and perisplenic region anteriorly extending to the lateral aspect of the superior portion of the spleen.There is a moderate amount of free fluid present within the dependent portion of the pelvis which is new. I cannot rule out additional injury or re-injury to the spleen. 2. Consider possible developing perisplenic abscess. 3. Low-attenuation area within the tail of the pancreas may represent small pseudocysts. 4. There may be gastric wall thickening. There are fluid-filled loops of small bowel with air-fluid levels. No significant bowel wall thickening or inflammatory changes. No evidence of obstruction. Consider early gastroenteritis. 5. There are old rib fractures the left-sided ribs with areas of nonunion and malunion. Old healed fractures of the right lower ribs. Dictated and Authenticated by: Oscar George MD. Ordering:ROSE Farrar MD
--- NOTE | 2024-03-10 22:49 | SCONE_ITS ---
Date of service: 03/10/24 Time of Service: 22:50 Assessment and Plan Assessment and plan (1) Anemia: Status: Chronic Assessment and plan: Although this spleen is atypical in appearance and morphology, I do not think the changes seen on CT are consistent with bleeding. The volume of intraperitneal fluid is very small, and the [place] units sampled on multiple areas of this fluid is all very low, consistent with serous rather than sanguineous fluid. I think the history and imaging are more in keeping with ruptured pancreatic psuedocyst rather than bleeding. Furthermore, her anemia is mictocytic in nature and her hemodynamics are more consstent with chronic anemia. I think admission to the ICU for careful monitoring and repeat hgb testing every 6 hours would be the safest course of action. I would also heme test her stools as I would consider her fairly high risk for gastritis, peptic ulcer disease or esophageal variceal disease as a source of chronic GI bleeding. History of Present Illness History of Present Illness Chief Complaint: Abdominal pain Narrative: Pratima is a 53 year old woman who comes to the ED with abdominal pain. PFSH All Active Problems (Updated 12/18/23 @ 00:07 by BALTAZAR MASCORRO) Left axillary swelling (Acute ~07/2022) 07/21/22 Gen Surgery Alcohol abuse (Chronic) Heavy menses (Acute) Encounter for screening colonoscopy (Acute) Anemia (Chronic) Anxiety (Chronic) DUB (dysfunctional uterine bleeding) (Acute) Depression (Chronic 04/03/15) Sertaline in the past with good relief of sx but then developed intolerable adverse rxns (nausea, flushing) Started on venlafaxine 03/2015 PHQ9 score = 9, indicating mild depression 03/2015 Chronic pain (Acute 02/20/09) chronic tramadol rx, back pain, sciatica despite LS surg 2009. Impaired fasting blood sugar (Acute 08/01/05) Obesity, unspecified (Acute 05/31/11) Atypical squamous cells of undetermined significance (ASC-US) on cervical Pap smear (Acute 08/05/09) ASCUS 08/05/09; 05/31/2011 Spinal stenosis of lumbar region (Acute 01/11/10) LS spine surg; Dr Sebastian Walker Tobacco dependence (Acute 08/01/05) Medical History (Updated 12/18/23 @ 00:07 by BALTAZAR MASCORRO) HTN (hypertension), benign Tobacco use disorder Spinal stenosis Lumbar region Surgical History Back surgery L5-S1 decompression 2009 Family History Mother , lung cancer at age 50. No problems noted. Father , MVA No problems noted. Other Lung cancer Social History Smoking/Tobacco Use Status: Current every day Tobacco Type: cigarettes Smoking risk assessment performed?: Yes Alcohol Intake: current Alcohol Intake frequency: 3 or more drinks per day Alcohol type: beer and hard liquor Drug use: Never Substance use type: does not use Housing: apartment Do you feel safe at home: Yes Do you feel safe in your relationship?: Yes Results Last Vital Signs Temp 97.2 F L 03/10/24 20:01 Pulse 88 03/10/24 22:30 Resp 21 03/10/24 22:40 BP 140/98 H 03/10/24 22:30 Pulse Ox 89 L 03/10/24 22:40 Labs 03/10/24 20:21 03/10/24 20:21 Labs: Laboratory Results - last 24 hr 03/10/24 03/10/24 20:05 20:21 WBC 11.59 H RBC 4.10 Hgb 8.6 L Hct 30.4 L MCV 74 L MCH 21.0 L MCHC 28.3 L RDW 18.8 H Plt Count 502 H MPV 9.5 Immature Gran % 0.3 Neutrophils % 74.3 Lymphocytes % 14.4 Monocytes % 8.6 Eosinophils % 1.6 Basophils % 0.8 Nucleated RBC % 0.0 Absolute Neutrophils 8.61 H Absolute Lymphocytes 1.67 Absolute Monocytes 1.00 H Absolute Eosinophils 0.19 Absolute Basophils 0.09 RBC Morphology See Below Hypochromasia 1+ Anisocytosis 1+ Microcytosis 1+ PT 10.4 INR 1.0 Sodium 137 Potassium 5.4 H Chloride 103 Carbon Dioxide 27.2 Anion Gap 6.8 BUN 24 H Creatinine 1.0 Est GFR (CKD-EPI 2020) 66.53 Glucose 106 Calcium 9.2 Total Bilirubin 0.37 AST 13 L ALT 13 L Alkaline Phosphatase 92 Troponin I 21 Total Protein 8.5 H Albumin 3.8 Lipase 119 H Urine Color Yellow Urine Clarity Sl Cloudy Urine pH 5.5 Ur Specific [place] 1.025 Urine Protein Trace Urine Ketones Negative Urine Blood Negative Urine Nitrite Negative Urine Bilirubin Negative Urine Urobilinogen 0.2 Ur Leukocyte Esterase Negative Urine Glucose Negative
[2024-03-10 22:54] LABS: Lab Add On Test DONE
[2024-03-10 23:03] LABS: Troponin I 20 ng/L (<or=51)
[2024-03-10 23:08] LABS: Mono Screening Negative (Negative)
[2024-03-11] VITALS (11 sets, daily range): BP systolic 162; BP diastolic 82; PULSE 80–104; RESP 14–32; TEMP 36.8; O2SAT 89–96
== END 2024-03-11 01:24 | disposition short-term general hospital (02) ==
PROVIDERS: Emergency Medicine; Emergency Provider Emergency Medicine; PCP Nurse Practitioner
DX: J44.9 Chronic obstructive pulmonary disease, unspecified; F10.10 Alcohol abuse, uncomplicated; R10.12 Left upper quadrant pain; D64.9 Anemia, unspecified; S36.09XA Other injury of spleen, initial encounter
CPT/HCPCS: 36415; 80053; 83690; 86850; 86900; 86901; 93005; 96365; 96366; 96375; 96376; 99285; 74177; 81003; 84484; 85025; 85610; 86308; 93010; J0131; J1171; J2060; J3490

== ENCOUNTER 2024-03-12 13:54 | Inpatient (IN) | payer MEDICAID, SELFPAY ==
[2024-03-12 16:00] VITALS: BP 141/84; PULSE 90; RESP 20; TEMP 35.5; O2SAT 95
[2024-03-12 16:06] VITALS: RESP 20; O2SAT 95
--- NOTE | 2024-03-12 16:06 | W.PC.ACHO ---
Registration Status: Primary Language: Preferred Language: Medical / Surgical History (Last Updated 08/06/22 @ 16:17 by Elio Navarrete MD) HTN (hypertension), benign Tobacco use disorder Spinal stenosis (Last Reviewed 11/12/21 @ 09:44 by PIPPA [place]) Back surgery Most Recent Vital Signs Temperature 35.5 C L 03/12/24 16:00 Temperature Source Temporal Artery Scan 03/12/24 16:00 Pulse 90 03/12/24 16:00 Respiratory Rate 20 03/12/24 16:00 Blood Pressure 141/84 H 03/12/24 16:00 Pulse Oximetry 95 03/12/24 16:00 Oxygen Delivery Method Room Air 03/12/24 16:00 Oxygen Flow Rate 0 03/12/24 16:00 Pain Level 7 03/12/24 16:00 Allergies oxycodone Adverse Reaction (Unknown, Verified 03/11/24 00:08) TERRIBLE DREAMS FROM PERCOCET Diet Orders Category Date Time Status Heart Healthy Eating [DIET] Nutrition 03/12/24 Dinner Active Diagnostics 03/12/24 Range/Units 16:00 WBC Pending RBC Pending Hgb Pending Hct Pending MCV Pending MCH Pending MCHC Pending RDW Pending Plt Count Pending MPV Pending Immature Gran % Pending Neutrophils % Pending Lymphocytes % Pending Monocytes % Pending Eosinophils % Pending Basophils % Pending Absolute Neutrophils Pending Absolute Lymphocytes Pending Absolute Monocytes Pending Absolute Eosinophils Pending Absolute Basophils Pending Sodium Pending Potassium Pending Chloride Pending Carbon Dioxide Pending Anion Gap Pending BUN Pending Creatinine Pending Est GFR (CKD-EPI 2020) Pending Glucose Pending Calcium Pending Magnesium Pending Total Bilirubin Pending AST Pending ALT Pending Alkaline Phosphatase Pending Total Protein Pending Albumin Pending v v v v v v v v v Sending and/or Receiving Nurses: Please use comment section below to note any information pertinent to the patient hand-off not included above. Information / Comments: last set of VS taken from EMS 108/69, HTN in hospital at [facility], 87 and regular, 90-94% on RA (hx of COPD),pain with bumps, Independent with ambulation, A&Ox4, Report received from: EMS on arrival to unit at 1600
--- NOTE | 2024-03-12 16:19 | W.PM.HP.N ---
Date of service: 03/12/24 Time of Service: 16:20 Assessment and Plan Assessment and plan (1) Abdominal pain: Status: Acute Assessment and plan: This might have been related to rupture of pancreatic cyst as pseudocysts are still seen in the tail of her pancreas. No hematochezia or previous CT result that would point to any further workup for mesenteric ischemia, pain is localized to left upper quadrant. We should also consider PUD in the setting of ETOH dependence as the patient drinks about a pint of vodka per week With H&H that has stabilized and trending up it is most likely that there is no acute bleed at this time. CBC in AM Surgical consult ongoing: please see Dr. Lemus's notes Continue as needed morphine and scheduled Tylenol (2) Intra abdominal hemorrhage: Status: Acute Assessment and plan: As per CT scan completed on 03/10/2020?CT scan completed at [facility] showed no worsening Trend H&H Surgical consult (3) Anemia: Status: Chronic Assessment and plan: 1 PRBC completed at [facility] H&H remained stable status post 1800 CBC CBC in the morning Stool for occult blood And as above (4) Perisplenic hematoma: Status: Acute Assessment and plan: Most likely d/t a pancreatic pseudocyst/ cyst rupture showing this fluid collection as per second CT and [facility] interpretation Gravitational drainage might also have contributed to fluid seen in lower abd pelvis on initial CT And as above (5) Cyst and pseudocyst of pancreas: Status: Acute Assessment and plan: As seen on CT on 03/[address] completed at [facility] on 03/11? (6) Alcohol use disorder: Status: Acute Assessment and plan: Continue EtOH assessment-last drink 03/09-03/10 (7) Anxiety: Status: Chronic Assessment and plan: Continue medicine as per home regimen Atarax on hold as the patient is already getting Seroquel and trazodone (8) COPD (chronic obstructive pulmonary disease): Status: Chronic Assessment and plan: Continue home medicine regimen with breathing treatments (9) Depression: Status: Chronic Assessment and plan: Continue home meds History of Present Illness History of Present Illness Chief Complaint: Abdominal pain Narrative: This 53-year-old female patient with past medical history of COPD, EtOH abuse, anemia, splenic rupture with rib fracture and embolization was transferred back from [facility] status post ED to ED transfer on 03/10/2024 upon presentation to the ED at [facility] for evaluation of left upper quadrant and flank pain with CT showing suspicion of splenic and abdominal hemorrhage versus developing abscess with fluid collection pulling in the lower pelvis. Workup in the ED showed an hemoglobin at 8.6 down from 13 in 2022, MCV of 74, BUN at 24. Based on laboratory findings and imaging ,discussion between general surgery, hospitalist and ED provider determined that patient would require ICU level of care for frequent laboratory studies, serial abdominal examinations, and potential management of alcohol withdrawal given this patient's daily alcohol use; no ICU bed were available at the time at [facility]. The patient was transferred to [facility] on the day of presentation. The patient remained in the ED at [facility] where she received 1 units of PRBC. The abdomen and pelvis CT from 03/10 was reviewed and a radiology consultation concluded that there no suspicious splenic lesions with heterogenous irregularly shaped fluid collection extending form the pancreatic tail to the perisplenic and subdiaphragmatic most likely consistent with sequella of walled off necrosis of indeterminate acuity. As the patient H&H remained stable, [facility] initiated transfer back to [facility] today, with recommendations for serial H&H and outpatient ABD/pelvis CT follow up. As the patient H&H remained stable, [facility] initiated transfer back to [facility] today. When seen in her room, the patient confirmed full CODE STATUS. The patient is hemodynamically stable, hungry and able to tolerate p.o. Repeated H&H at 1800 shows an H&H of 8.6; it was 7.8 at [facility]. Abdominal pain is controlled with. IV morphine with scheduled acetaminophen will be added. The patient will receive IV PPI. The patient denied malaise, fever or chills, hemoptysis, hematochezia, nausea and vomiting. She reported an episode of black stool happening about 2 weeks ago. Review of Systems All systems reviewed & are unremarkable except as noted in HPI and below PFSH All Active Problems (Updated 03/13/24 @ 09:40 by Albina Naqvi APRN) Cyst and pseudocyst of pancreas (Acute) Abdominal pain (Acute) COPD (chronic obstructive pulmonary disease) (Chronic) Alcohol use disorder (Acute) Intra abdominal hemorrhage (Acute) Anemia (Chronic) Perisplenic hematoma (Acute) Left axillary swelling (Acute ~07/2022) 07/21/22 Gen Surgery Alcohol abuse (Chronic) Heavy menses (Acute) Encounter for screening colonoscopy (Acute) Anemia (Chronic) Anxiety (Chronic) DUB (dysfunctional uterine bleeding) (Acute) Depression (Chronic 04/03/15) Sertaline in the past with good relief of sx but then developed intolerable adverse rxns (nausea, flushing) Started on venlafaxine 03/2015 PHQ9 score = 9, indicating mild depression 03/2015 Chronic pain (Acute 02/20/09) chronic tramadol rx, back pain, sciatica despite LS surg 2009. Impaired fasting blood sugar (Acute 08/01/05) Obesity, unspecified (Acute 05/31/11) Atypical squamous cells of undetermined significance (ASC-US) on cervical Pap smear (Acute 08/05/09) ASCUS 08/05/09; 05/31/2011 Spinal stenosis of lumbar region (Acute 01/11/10) LS spine surg; Mitzy Hughes, Dr Cortes Tobacco dependence (Acute 08/01/05) Medical History (Updated 03/13/24 @ 09:40 by Albina Naqvi APRN) HTN (hypertension), benign Tobacco use disorder Spinal stenosis Lumbar region Surgical History Back surgery L5-S1 decompression 2009 Family History Mother , lung cancer at age 50. No problems noted. Father , MVA No problems noted. Other Lung cancer Social History Smoking/Tobacco Use Status: Current every day Tobacco Type: cigarettes Smoking risk assessment performed?: Yes Alcohol Intake: current Alcohol Intake frequency: 3 or more drinks per day Alcohol type: beer and hard liquor Drug use: Never Substance use type: does not use Housing: other Do you feel safe at home: Yes Do you feel safe in your relationship?: Yes Meds Allergies and Home Medications Allergies Allergy/AdvReac Type Severity Reaction Status Date / Time hydromorphone (From Dilaudid) Allergy Severe Itching Verified 03/12/24 23:16 oxycodone AdvReac Unknown TERRIBLE Verified 03/12/24 22:34 DREAMS Home Medications ?Medication ?Instructions ?Recorded ?Confirmed ?Type clobetasol-emollient 0.05 % 1 applic topical DAILY PRN #60 12/08/16 03/12/24 History topical cream grams inhalational spacing device #1 ea 09/28/20 03/12/24 Rx (POCKET CHAMBER spacer) nebulizers #1 ea 03/16/21 03/12/24 Rx albuterol sulfate 2.5 mg/3 mL 2.5 mg (3 mL) inhalation Q4H PRN 01/10/23 03/12/24 Rx (0.083 %) solution for nebulization shortness of breath or wheezing #180 mL hydroxyzine HCl 25 mg tablet 25 mg PO TID PRN anxiety #180 tabs 01/10/23 03/12/24 Rx Hand Held Nebulizer #1 ea 11/27/23 03/12/24 Rx citalopram 40 mg tablet 40 mg PO DAILY #90 tabs 11/27/23 03/12/24 Rx lisinopril 20 mg tablet 20 mg PO DAILY #90 tab-caps 11/27/23 03/12/24 Rx propranolol 20 mg tablet 20 mg PO BID #180 tabs 11/27/23 03/12/24 Rx quetiapine 100 mg tablet See Rx Instructions .Route 11/27/23 03/12/24 Rx .COMPLEX #135 tabs tiotropium bromide 1.25 2 puff inhalation DAILY #4 grams 11/27/23 03/12/24 Rx mcg/actuation mist for inhalation (Spiriva Respimat) albuterol sulfate 90 mcg/actuation See Rx Instructions .Route 01/22/24 03/12/24 Rx aerosol inhaler (Ventolin HFA) .COMPLEX #18 grams doxepin 25 mg capsule See Rx Instructions .Route 01/22/24 03/12/24 Rx .COMPLEX #60 caps trazodone 50 mg tablet See Rx Instructions .Route 01/22/24 03/12/24 Rx .COMPLEX #135 tabs acetaminophen 500 mg tablet 1,000 mg (2 x 500 mg) PO QID #40 03/13/24 Rx tabs cyanocobalamin (vitamin B-12) 500 500 mcg PO DAILY #30 tabs 03/13/24 Rx mcg tablet (Vitamin B-12) docusate sodium 100 mg capsule 100 mg PO BID #60 caps 03/13/24 Rx (Colace) ferrous sulfate 325 mg (65 mg 325 mg PO DAILY #30 tabs 03/13/24 Rx iron) tablet folic acid 1 mg tablet 1 mg PO DAILY #30 tabs 03/13/24 Rx morphine 15 mg immediate release 7.5 mg (1/2 x 15 mg) PO Q6H PRN 03/13/24 Rx tablet #10 tabs thiamine mononitrate (vit B1) 100 100 mg PO DAILY #30 tabs 03/13/24 Rx mg tablet (Vitamin B-1 (mononitrate)) Exam Narrative Exam Narrative: Constitutional The patient is sitting in chair, eating dinner/ w/o acute distress Neuro:alert and oriented to self, person, place time and situation. No neurological focal deficit Chest:Chest is symmetrical and normal appearance Resp: Normal respiratory pattern, speaks in full sentences, unlabored breathing, clear lung bilaterally Cardio: regular rhythm, S1, S2, no murmur heard but patient reports history, positive radial pulses GI: Abdomen is not distended, soft and non tender, bowel sounds are present : Negative Costovertebral angle tenderness, no bladder distension Back/spine/Pelvis: No back tenderness, normal alignment Integumentary: No skin lesions or rash on exposed skin Extremities: strength 5/5 to bilateral lower and upper extremities Psych: RASS 0, congruent mood and normal affect. Results Labs 03/13/24 06:20 03/12/24 17:10 Last Vital Signs Temp 35.5 C L 03/12/24 16:00 Pulse 90 03/12/24 16:00 Resp 20 03/12/24 16:06 BP 141/84 H 03/12/24 16:00 Pulse Ox 95 03/12/24 16:06 PAWSS Have you Been Recently Intoxicated or Drunk Within the Last 30 days?: No Have you Ever Experienced Previous Episodes of Alcohol Withdrawal?: Yes Have you ever Experienced Withdrawal Seizures?: No Have you ever Experienced Delirium Tremens(DT)s?: No Have you ever undergone Alcohol Rehabilitation Treatment (i.e, inpt ot outpatient treatment programs)?: Yes Have you ever Experienced Blackouts?: No Have you ever Combined Alcohol with other Downers within the last 90 days?: No Positive Blood Alcohol level on Presentation? [PCS.BAL]: No Evidence of Increased Autonomic Activity (i.e. HR>120, tremor, sweating, agitation, nausea)?: No Result: 2 Time Spent Time spent with Patient: >75 minutes Time was spent: preparing to see the patient(eg.review tests), obtaining and/or reviewing separately otained hiistory, ordering medications,tests, procedures, referring, communicating with other health pediatric care coordinator, indepentently interpreting results, counseling the patient and care coordination
[2024-03-12 17:19] LABS: Abs Immature Grans 0.02 10^3/uL (0.0-0.06); Absolute Basophil Count 0.08 10^3/uL (0.0-0.2); Absolute Lymphocyte Count 2.01 10^3/uL (1.2-3.4); Basophils % 0.9 %; HCT 30.3 % (36.0-46.0); HGB 8.7 g/dL (11.2-15.7); Immature Grans % 0.2 %; Lymphocytes % 23.1 %; MCH 22.5 pg (27.0-33.0); MCHC 28.7 % (32.0-36.0); MCV 78 fL (80-95); MPV 9.8 fL (8.0-11.0); Neutrophils % 59.8 %; Platelet Count 433 10^3/uL (130-400); RBC 3.87 10^6/uL (3.93-5.22); RDW 20.3 % (11.7-14.6); RDW-SD 54.8 fL; WBC 8.71 10^3/uL (4.4-10.8)
[2024-03-12 17:33] LABS: ALT 14 U/L (14-59); AST 11 U/L (15-37); Albumin 3.7 g/dL (3.4-5.0); Alkaline Phosphatase 93 U/L (46-116); Anion Gap 7.4 mmol/L (3-11); Anisocytosis 1+; BUN 22 mg/dL (7-18); CO2 27.6 mmol/L (21.0-32.0); Calcium 8.8 mg/dL (8.5-10.1); Chloride 102 mmol/L (98-107); Diff Comment RBC Morph Reviewed; Estimated GFR 66.53 (mL/min/1.73m2); Glucose 115 mg/dL (74-106); Magnesium 1.7 mg/dL (1.8-2.4); Potassium 4.8 mmol/L (3.5-5.1); Sodium 137 mmol/L (136-145); Total Protein 8.3 g/dL (6.4-8.2)
[2024-03-12 17:34] LABS: Poikilocytes 1+
--- NOTE | 2024-03-12 17:42 | SCONE_ITS ---
Date of service: 03/12/24 Time of Service: 17:42 Assessment and Plan Assessment and plan (1) Intra abdominal hemorrhage: Status: Acute Assessment and plan: Although bleeding from the spleen is certainly possible after spleen trauma and angioembolization, it would be extremely atypical for it to occur this late after injury (especially with embolization) without any other significant provoking factors. Furthermore, if her anemia was all from acute blood loss, I would expect a much larger volume of free fluid within the peritoneal cavity. Finally, although there is a mixed attenuation of the fluid, majority of it appears quite simple, with Hounsfield units ranging somewhere between 8 and 14. Putting this altogether, I think it is more likely that she had a pancreatic pseudocyst in the tail of the pancreas that ruptured contributing to the free fluid, the pain, and perhaps some of the anemia. The microcytic nature of her bleeding, and elevated BUN would also suggest an element of chronicity here, and I think an intraluminal source of GI blood bleeding should be ruled out. For the time being, starting her on a PPI would be very reasonable. She certainly has significant risk factors for peptic ulcer disease. I would repeat the hemoglobin over the next 24 hours, and assuming that stable, the rest of this could be worked up as an outpatient. History of Present Illness History of Present Illness Chief Complaint: Abdominal pain Narrative: Pratima is 53 years old. She came to our emergency department the evening of the after the acute onset of sharp left upper quadrant abdominal pain. She has a history of traumatic spleen injury which was treated with angioembolization, and she described the pain in the left upper quadrant as identical in nature to the pain that she experienced from her spleen trauma. That event occurred in 2022 after a fall on some steps and was associated with a number of rib fractures. At that time, she presented in a slightly delayed fashion, with a large perisplenic hematoma. As I mentioned above, she was transferred to [facility], and underwent uncomplicated angioembolization. Since then, she has done well. It was not until the other day when this pain came back. During workup in the emergency department, she was found to have a new anemia with a hemoglobin of 8.6 down from 13 in 2022. Interestingly, she is also microcytic with a mean corpuscular volume of 74. Her BUN was also very mildly elevated at 24. She underwent a CT scan that night that demonstrated mixed attenuation fluid in the perisplenic region as well as around the tail of the pancreas. There is also evidence of some free fluid down in the pelvis. Hemodynamics were favorable, she was transferred over from our emergency department to the [facility]. She tells me that while she was there, they repeated her hemoglobin, and did transfuse her 1 unit of packed red blood cells. Otherwise, no specific interventions were conducted. After observation, [facility] felt she was suitable for transfer, as the only other ongoing treatment was regarding her pain. When she comes back tonight, she tells me that she does still have abdominal pain, mostly in the left upper quadrant. It seems to be better than it was over the past few days. She denies any shortness of breath. She does cough quite a bit, but that is her baseline. She is hungry, and tolerating food okay. 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 She also underwent the angioembolization referenced above, but no other significant surgical history as it would pertain to the pancreas or spleen. She has never had any colonoscopies. Review of Systems Constitutional Constitutional: Reports body ache(s), Denies fatigue, Denies fever(s) and Denies weight loss Eyes Eyes: Reports system reviewed and no additional complaints, except as documented ENT Ears, Nose, Mouth, and Throat: Reports system reviewed and no additional complaints, except as documented Cardiovascular Cardiovascular: Denies chest pain and Denies dyspnea Respiratory Respiratory: Reports chest congestion, Reports cough and Denies dyspnea Gastrointestinal Gastrointestinal: Reports abdominal pain, Denies bloating and Denies change in stool character Comments: She tells me on occasion she does have some coffee-ground type stools Musculoskeletal Musculoskeletal: Reports back pain and Reports stiffness Neurologic Neurologic: Reports system reviewed and no additional complaints, except as documented Psychiatric Psychiatric: Reports depression Endocrine Endocrine: Denies fatigue Hematologic/Lymphatic Hematologic/Lymphatic: Denies easy bleeding and Reports easy bruising PFSH All Active Problems (Updated 03/11/24 @ 00:15 by Shirley Marquez MD) COPD (chronic obstructive pulmonary disease) (Chronic) Alcohol use disorder (Acute) Intra abdominal hemorrhage (Acute) Anemia (Chronic) Perisplenic hematoma (Acute) Left axillary swelling (Acute ~07/2022) 07/21/22 Gen Surgery Alcohol abuse (Chronic) Heavy menses (Acute) Encounter for screening colonoscopy (Acute) Anemia (Chronic) Anxiety (Chronic) DUB (dysfunctional uterine bleeding) (Acute) Depression (Chronic 04/03/15) Sertaline in the past with good relief of sx but then developed intolerable adverse rxns (nausea, flushing) Started on venlafaxine 03/2015 PHQ9 score = 9, indicating mild depression 03/2015 Chronic pain (Acute 02/20/09) chronic tramadol rx, back pain, sciatica despite LS surg 2009. Impaired fasting blood sugar (Acute 08/01/05) Obesity, unspecified (Acute 05/31/11) Atypical squamous cells of undetermined significance (ASC-US) on cervical Pap smear (Acute 08/05/09) ASCUS 08/05/09; 05/31/2011 Spinal stenosis of lumbar region (Acute 01/11/10) LS spine surg; Dr Sebastian Walker Tobacco dependence (Acute 08/01/05) Medical History (Updated 03/11/24 @ 00:15 by Shirley Marquez MD) HTN (hypertension), benign Tobacco use disorder Spinal stenosis Lumbar region Surgical History Back surgery L5-S1 decompression 2009 Family History Mother , lung cancer at age 50. No problems noted. Father , MVA No problems noted. Other Lung cancer Social History Smoking/Tobacco Use Status: Current every day Tobacco Type: cigarettes Smoking risk assessment performed?: Yes Alcohol Intake: current Alcohol Intake frequency: 3 or more drinks per day Alcohol type: beer and hard liquor Drug use: Never Substance use type: does not use Housing: other Do you feel safe at home: Yes Do you feel safe in your relationship?: Yes Exam Const General: cooperative, comfortable and no acute distress Nutritional Appearance: overweight Orientation: alert, awake and oriented x3 HENMT Head: normal to inspection Eyes General: appearance normal, both eyes and all related structures Resp Effort & Inspection: audible wheezes and cough Cardio Rate: regular rate Rhythm: regular rhythm Heart Sounds: S1 normal and S2 normal GI Inspection: normal to inspection and non-distended Palpation: soft, no guarding and tender (Mild tenderness mostly on the left side) Auscultation: normal bowel sounds Results Last Vital Signs Temp 95.9 F L 03/12/24 16:00 Pulse 90 03/12/24 16:00 Resp 20 03/12/24 16:06 BP 141/84 H 03/12/24 16:00 Pulse Ox 95 03/12/24 16:06 Labs 03/12/24 17:10 03/12/24 17:10 Labs: Laboratory Results - last 24 hr 03/12/24 17:10 WBC 8.71 RBC 3.87 L Hgb 8.7 L Hct 30.3 L MCV 78 L D MCH 22.5 L MCHC 28.7 L RDW 20.3 H Plt Count 433 H MPV 9.8 Immature Gran % 0.2 Neutrophils % 59.8 Lymphocytes % 23.1 Monocytes % 8.0 Eosinophils % 8.0 Basophils % 0.9 Nucleated RBC % 0.0 Absolute Neutrophils 5.20 Absolute Lymphocytes 2.01 Absolute Monocytes 0.70 Absolute Eosinophils 0.70 Absolute Basophils 0.08 RBC Morphology See Below Poikilocytosis 1+ Anisocytosis 1+ Imaging Abdomen CT scan report/results: report reviewed and image reviewed CT scan - pelvis: report reviewed and image reviewed
[2024-03-12] MEDS: Normal Saline 10 ML VIAL IJ (19:03)
[2024-03-12] MEDS: Pantoprazole 40 MG VIAL IVP (19:03)
[2024-03-12] MEDS: MORPHine 2 MG/ML SYR 1 MG IVP ×2 (19:16→22:31)
[2024-03-12 19:23] VITALS: BP 130/87; PULSE 93; RESP 16; TEMP 36.8; O2SAT 93
[2024-03-12] MEDS: Acetaminophen 500 MG TAB 1000 MG PO (20:51)
[2024-03-12] MEDS: Propranolol 10 MG TAB 20 MG PO (20:51)
[2024-03-12] MEDS: traZODone 50 MG TAB 75 MG PO (20:51)
[2024-03-12] MEDS: QUEtiapine 50 MG TAB 150 MG PO (20:52)
[2024-03-12] MEDS: Docusate Sodium 100 MG CAP PO (20:52)
[2024-03-12] MEDS: Normal Saline Flush 10 ML SYR IVP ×2 (20:55→22:31)
[2024-03-12] MEDS: Doxepin 25 MG CAP PO (21:06)
[2024-03-12] MEDS: Lisinopril 20 MG TAB PO (21:15)
[2024-03-12 23:44] VITALS: BP 108/80; PULSE 69; RESP 18; TEMP 36.5; O2SAT 96
[2024-03-13 06:37] LABS: Abs Immature Grans 0.04 10^3/uL (0.0-0.06); Absolute Basophil Count 0.08 10^3/uL (0.0-0.2); Absolute Eosinophil Count 0.77 10^3/uL (0.0-0.7); Absolute Lymphocyte Count 2.12 10^3/uL (1.2-3.4); Absolute Monocyte Count 0.62 10^3/uL (0.1-0.8); Absolute Neutrophil Count 4.46 10^3/uL (1.2-6.7); Eosinophils % 9.5 %; HCT 28.8 % (36.0-46.0); HGB 8.3 g/dL (11.2-15.7); Immature Grans % 0.5 %; Lymphocytes % 26.2 %; MCH 22.7 pg (27.0-33.0); MCHC 28.8 % (32.0-36.0); MCV 79 fL (80-95); MPV 9.9 fL (8.0-11.0); Monocytes % 7.7 %; Neutrophils % 55.1 %; Platelet Count 395 10^3/uL (130-400); RBC 3.66 10^6/uL (3.93-5.22); RDW 20.5 % (11.7-14.6); RDW-SD 55.7 fL; WBC 8.09 10^3/uL (4.4-10.8)
[2024-03-13 07:10] LABS: Anisocytosis 2+; Diff Comment RBC Morph Reviewed; Hypochromasia 1+; Poikilocytes 1+; Polychromasia Present
[2024-03-13 07:58] VITALS: BP 123/79; PULSE 80; RESP 18; TEMP 36.7; O2SAT 94
[2024-03-13] MEDS: Tiotropium Bromide-Respimat 10 PUFF INH 2 PUFF IH (08:06)
[2024-03-13 08:09] VITALS: O2SAT 94
--- NOTE | 2024-03-13 08:42 | INITIAL_ITS ---
Date of service: 03/13/24 Time of Service: 08:42 Care Management Initial Assmt Initial Assessment Reason for Hospitalization: abdominal pain Functional Status/Living Situation Patient Presentation: Adrianne was ambulating independently in the hallway when CM went to meet with her. She joined CM in her room, sitting in a chair. She was holding her left side and stated it hurt. After a minute or two she began groaning in pain and informed CM that something needs to be done. The tramadol is not controlling my pain. CM informed her nurse who reached out to the provider. Adrianne is currently staying at the [facility] on a voucher from [employer]. She explained that she was evicted from her apartment after filing a complaint against her former landlord. He had reportedly spread some cleaner carpet and upholstery on Adrianne's stairs which created a slip hazard which contributed to her fall in June of 2021 with serious injuries. She has not been able to work since. Adrianne has 2 children, a son and a daughter. She is very close to her daughter and her daughter's 2 boys but is not as close to her son. They all live locally. Adrianne shared that she worked for 35 years as an [employer]. She uses a cane on occasion on [place] but is otherwise independent. Adrianne does receive support from in the form of housing at [facility]. Town of Residence: [place], [place] but currently at [facility]. Resides with: Alone Significant Other/Family: Local Employment Status: Unemployed (due to injuries ) Instrumental Activities of Daily Living (ADLs): Independent Medications Medication Management: No Issues/Barriers identified Physical Functioning/Mobility Assistive Device: cane prn Advance Directives Advance Directives: Do you have an Advance Directive: N 08/08/13 09:23 AD On File at [facility]: N 08/08/13 09:23 Date Asked 03/12/24 03/12/24 14:57 AD Date Reviewed COLST On File at [facility] COLST Date Scanned Code Status Resuscitation Status Full Code Portal Pt does not currently have a portal and education provided: No Portal Education: Other (out of area) Insurance Coverage/Financial Issues Insurance: Medicaid Care Team Visit Care Team Role Provider Type Paula Barboza NP Primary Care Provider NURSE PRACTITIONER InPatient Armando Alarcon Other Providers OTHER Tonny Lemus MD Other Providers [facility] STAFF PHYSICIAN Slava Raser Admit Provider MD MARQUES STAFF PHYSICIAN Attending Provider Discharge Potential Discharge Needs: PCP F/U Appt Anticipated Barriers to Discharge: Medical Status Patient/Family Education Needs: Review discharge instructions, discuss Ask Me Three Transportation: Private vehicle Plan: Anticipate Adrianne will be discharged home with no new services when medically stable. She will follow up with her PCP and plan of care and transport with family. CM will follow and continue to support discharge planning efforts. Social Determinants of Health Screening Social Determinants of Health last assessed: 03/13/24 Will the Patient Participate in the Screening?: Yes Do you worry about having a steady place to live?: yes What is your living situation today?: I do not have steady housing Problems where you live: no known problems In the past 12 months, have you had to go without electric, gas, oil or water in your home?: no Have you or anyone in your house had to go without enough food to eat?: yes 1. Within the past 12 months, we worried whether our food would run out before we got money to buy more.: Often true 2. Within the past 12 months, the food we bought just didn't last and we didn't have money to get more.: Often true Referred to:: [employer] (has housing through [facility] with voucher) Has lack of transportation kept you from medical appointments or from doing things needed for daily living?: no Has anyone in your life made you feel unsafe or unsupported?: no How hard is it for you to pay for the very basics like food, housing, medical care, and heating? Would you say it is:: Very hard Do you want help finding or keeping work or a job?: Yes, help finding work If for any reason you need help with day-to-day activities such as bathing, preparing meals, shopping, managing finances, etc., do you get the help you need?: I don?t need any help How often do you feel lonely or isolated from those around you?: Never Do you speak a language other than Moroccan at home?: No Does the patient want assistance with any of the above?: Yes Social Determinants of Health Comments([facility] Details): voucher for home is about to at the [facility]. Health Related Social Needs Health related social needs: housing instability, housed, with risk of homelessness (Z59.811), food insecurity (Z59.41), problems related to housing/economic circumstances (Z59.89) and problems finding work (Z56.9) [facility] All Active Problems (Updated 03/13/24 @ 09:40 by Albina Naqvi APRN) Cyst and pseudocyst of pancreas (Acute) Abdominal pain (Acute) COPD (chronic obstructive pulmonary disease) (Chronic) Alcohol use disorder (Acute) Intra abdominal hemorrhage (Acute) Anemia (Chronic) Perisplenic hematoma (Acute) Left axillary swelling (Acute ~07/2022) 07/21/22 Gen Surgery Alcohol abuse (Chronic) Heavy menses (Acute) Encounter for screening colonoscopy (Acute) Anemia (Chronic) Anxiety (Chronic) DUB (dysfunctional uterine bleeding) (Acute) Depression (Chronic 04/03/15) Sertaline in the past with good relief of sx but then developed intolerable adverse rxns (nausea, flushing) Started on venlafaxine 03/2015 PHQ9 score = 9, indicating mild depression 03/2015 Chronic pain (Acute 02/20/09) chronic tramadol rx, back pain, sciatica despite LS surg 2009. Impaired fasting blood sugar (Acute 08/01/05) Obesity, unspecified (Acute 05/31/11) Atypical squamous cells of undetermined significance (ASC-US) on cervical Pap smear (Acute 08/05/09) ASCUS 08/05/09; 05/31/2011 Spinal stenosis of lumbar region (Acute 01/11/10) LS spine surg; Mitzy Hughes, Dr Cortes Tobacco dependence (Acute 08/01/05) Medical History (Updated 03/13/24 @ 09:40 by Albina Naqvi APRN) HTN (hypertension), benign Tobacco use disorder Spinal stenosis Lumbar region Surgical History Back surgery L5-S1 decompression 2009 Family History Mother , lung cancer at age 50. No problems noted. Father , MVA No problems noted. Other Lung cancer Social History Smoking/Tobacco Use Status: Current every day Tobacco Type: cigarettes Smoking risk assessment performed?: Yes Alcohol Intake: current Alcohol Intake frequency: 3 or more drinks per day Alcohol type: beer and hard liquor Drug use: Never Substance use type: does not use Housing: other Do you feel safe at home: Yes Do you feel safe in your relationship?: Yes
[2024-03-13] MEDS: Citalopram 20 MG TAB 40 MG PO (08:49)
[2024-03-13] MEDS: Doxepin 25 MG CAP PO (08:49)
[2024-03-13] MEDS: Normal Saline Flush 10 ML SYR IVP ×2 (08:50→10:51)
[2024-03-13] MEDS: Pantoprazole 40 MG VIAL IVP (08:50)
[2024-03-13] MEDS: Normal Saline 10 ML VIAL IJ (08:50)
[2024-03-13] MEDS: MORPHine 2 MG/ML SYR 1 MG IVP ×2 (08:50→15:00)
--- NOTE | 2024-03-13 09:21 | PT.INIE ---
PT Notes Visit Reasons: perisplenic hematoma,rup pancreatic cyst,anemia,AB Inpatient Physical Therapy Evaluation Date: 03/13/24 Referring Doctor: Albina Naqvi NP PT Orders: PT CONSULT: safety consult for d/c Precautions: standard Patient Profile/Admitting Diagnosis: Pratiam is a 53 year old female with distant h/o trauma resulting in multiple rib fx and splenic rupture, who presented to ED at [facility] 03/10/24 with left flank pain. CT identified perisplenic hematoma and rupture of pancreatic cyst. She was transferred to [facility], then returned to [facility] 03/12/24 once stabilized. PT consult received for safety consultation for discharge planning. Social History/Home Situation: Independent at baseline. Resides in single level home, no stairs to enter. Ambulates without device. Equipment Owned/DME: none Subjective: Adrianne states that her pain is coming down, now at a 7/10 after medication. She states that she has been walking around her room and the halls on her own. She would like to consider a cane, stating that she is fearful of falling when the pain hits her. She additionally notes pain when getting in/out of bed. She's unable to lie on her left side, but has to get into her bed from the left side. Objective: General Observation: Sitting in chair drinking coffee at initiation of session. No lines. Mental Status: A&Ox3. Pain: 7/10 ROM: Right Upper Extremity: WFL Left Upper Extremity: WFL Right Lower Extremity: WFL. Left Lower Extremity: WFL Strength: Upper Extremity: No resisted strength testing performed due to ongoing pain. Demonstrates 3/5 strength for UEs bilat. Lower Extremity: No resisted strength testing performed due to ongoing pain. Demonstrates 3/5 strength for LEs bilat. Exacerbation of left flank pain with AROM of RLE. Bed Mobility/Transfers: supine-sit: independent, but with increased pain. sit-supine: independent, but with increased pain. Trialled log rolling technique, although unable to lie on left side. Instructed in modified log roll into partial left sidelying, utilizing extra pillows for elevation of HOB. Gait: Ambulates 25'x2 with single point cane. Min cues for cane management. Has single episode of left flank pain during ambulation, requiring forward flexed trunk position and reliance on UE support to cane for approx 15 seconds until pain passes. Later ambulates 600' independently. Able to manage therapeutic stairs 6x2, 4x3 with single rail, reciprocal pattern, supervision only. Balance: Static Sitting: normal Dynamic Sitting: normal Static Standing: good Dynamic Standing: good Special Tests: Mobility Limitations Standardized Measure [facility] AM-PAC 6 clicks Basic Mobility Inpatient Short Form: Raw Score: 24 CMS Score: 0 Informed Consent/Education: Patient instructed in purpose of PT consult and plan of care. Treatment: Initial Evaluation (62660) Therapeutic Activities (31141q8): reviewed safe transfer techniques and modification for pain management. Issued single point cane. Assessment: Patient is a 53 year old female referred to physical therapy services for safety consult for discharge planning. She has been in acute care for work up of left flank pain, and continues to struggle with pain during transfers and ambulation. She does demonstrate good safety awareness , and will benefit from use of single point cane to allow for improved balance and pain management during ambulation. Cane was issued and fitted during today's session. She is appropriate for discharge home once medically stable, without need for further PT intervention. She demonstrated by the following impairment level findings: 1. persistent pain Impairments are contributing to the following functional limitations: 1. pain getting in/out of bed Patient is assessed as Low 29818 complexity based on the following: History: As above Examination: Functional limitations as noted above Presentation: evolving due to acute medical issues Decision Making: low Plan of Care/Treatment Plan: No further PT intervention required at this time. DISCHARGE RECOMMENDATIONS: Home with no services TREATMENT CODE/TIME: 5521-6199; [id number] ([id number]) Rosa Valle, PT, DPT [facility] All Active Problems (Updated 03/13/24 @ 09:40 by Albina Naqvi APRN) Cyst and pseudocyst of pancreas (Acute) Abdominal pain (Acute) COPD (chronic obstructive pulmonary disease) (Chronic) Alcohol use disorder (Acute) Intra abdominal hemorrhage (Acute) Anemia (Chronic) Perisplenic hematoma (Acute) Left axillary swelling (Acute ~07/2022) 07/21/22 Gen Surgery Alcohol abuse (Chronic) Heavy menses (Acute) Encounter for screening colonoscopy (Acute) Anemia (Chronic) Anxiety (Chronic) DUB (dysfunctional uterine bleeding) (Acute) Depression (Chronic 04/03/15) Sertaline in the past with good relief of sx but then developed intolerable adverse rxns (nausea, flushing) Started on venlafaxine 03/2015 PHQ9 score = 9, indicating mild depression 03/2015 Chronic pain (Acute 02/20/09) chronic tramadol rx, back pain, sciatica despite LS surg 2009. Impaired fasting blood sugar (Acute 08/01/05) Obesity, unspecified (Acute 05/31/11) Atypical squamous cells of undetermined significance (ASC-US) on cervical Pap smear (Acute 08/05/09) ASCUS 08/05/09; 05/31/2011 Spinal stenosis of lumbar region (Acute 01/11/10) LS spine surg; Dr Sebastian Walker Tobacco dependence (Acute 08/01/05) Medical History (Updated 03/13/24 @ 09:40 by Albina Naqvi APRN) HTN (hypertension), benign Tobacco use disorder Spinal stenosis Lumbar region Surgical History Back surgery L5-S1 decompression 2009
--- NOTE | 2024-03-13 09:35 | W.PM.PROGNOT ---
Date of Service Date of service: 03/13/24 Time of Service: 09:35 Assessment and Plan Assessment and plan (1) Cyst and pseudocyst of pancreas: Status: Acute Assessment and plan: Patient has minor small cyst of the tail of the pancreas. CT scan shows a linear fluid collection from the pancreas towards the spleen which initially was thought to be acute in nature but likely is chronic. I have personally reviewed the CT scan and compared with the patient's physical exam. (2) Abdominal pain: Status: Acute Assessment and plan: Acute exacerbation of chronic pain. The pain is probably more related to the back and flank pain which the patient has chronically received narcotics. The acute exacerbation of pain suggests that the slight fluid in the abdomen would be related and it may indeed be, but there is no evidence of infection or ileus (other than constipation) and discharge is appropriate (3) Intra abdominal hemorrhage: Status: Acute Assessment and plan: minor, if at all (4) Back surgery: Assessment and plan: source of chronic pain Subjective Subjective Patient reports: no new complaints, still having pain, pain is less (Still requiring p.o. narcotics which she was on chronically as an outpatient), tolerating a regular diet, flatus (Scant) and no bowel movement (1 stool softener given with no results, not interested in Per rectal suppository or enema) Exam Narrative Exam Narrative: Patient is sitting up, appears well, conversant. Able to get back into bed independently but has pain on doing so. HENMT Head: normal to inspection Resp Auscultation: clear to auscultation bilaterally Cardio Rate: regular rate Rhythm: regular rhythm GI Inspection: normal to inspection, no abdominal wall ecchymosis and obesity Palpation: soft (Rest of abdomen), guarding (From left flank, anteriorly to left subcostal region.) and tender Other: Exam of the flank and back in the sitting position reveals diffuse musculoskeletal tenderness and rigidity of paraspinous muscles in addition to the flank tenderness which seems related to abdominal pain Skin General skin exam: no rashes or lesions noted Neuro General: patient alert, patient awake, patient oriented x3 and moves all extremities Psych Mental Status: mental status grossly normal Objective Last Vital Signs Temp 36.7 C 03/13/24 07:58 Pulse 80 03/13/24 07:58 Resp 18 03/13/24 07:58 BP 123/79 03/13/24 07:58 Pulse Ox 94 03/13/24 08:09 Laboratory Results - last 24 hr 03/12/24 03/13/24 17:10 06:20 WBC 8.71 8.09 RBC 3.87 L 3.66 L Hgb 8.7 L 8.3 L Hct 30.3 L 28.8 L MCV 78 L D 79 L MCH 22.5 L 22.7 L MCHC 28.7 L 28.8 L RDW 20.3 H 20.5 H Plt Count 433 H 395 MPV 9.8 9.9 Immature Gran % 0.2 0.5 Neutrophils % 59.8 55.1 Lymphocytes % 23.1 26.2 Monocytes % 8.0 7.7 Eosinophils % 8.0 9.5 Basophils % 0.9 1.0 Nucleated RBC % 0.0 0.0 Absolute Neutrophils 5.20 4.46 Absolute Lymphocytes 2.01 2.12 Absolute Monocytes 0.70 0.62 Absolute Eosinophils 0.70 0.77 H Absolute Basophils 0.08 0.08 RBC Morphology See Below See Below Polychromasia Present Hypochromasia 1+ Poikilocytosis 1+ 1+ Anisocytosis 1+ 2+ Sodium 137 Potassium 4.8 Chloride 102 Carbon Dioxide 27.6 Anion Gap 7.4 BUN 22 H Creatinine 1.0 Est GFR (CKD-EPI 2020) 66.53 Glucose 115 H Calcium 8.8 Magnesium 1.7 L Total Bilirubin 0.60 AST 11 L ALT 14 Alkaline Phosphatase 93 Total Protein 8.3 H Albumin 3.7 Reviewed Pertinent PMH: Yes PAWSS Have you Been Recently Intoxicated or Drunk Within the Last 30 days?: No Have you Ever Experienced Previous Episodes of Alcohol Withdrawal?: Yes Have you ever Experienced Withdrawal Seizures?: No Have you ever Experienced Delirium Tremens(DT)s?: No Have you ever undergone Alcohol Rehabilitation Treatment (i.e, inpt ot outpatient treatment programs)?: Yes Have you ever Experienced Blackouts?: No Have you ever Combined Alcohol with other Downers within the last 90 days?: No Positive Blood Alcohol level on Presentation? [PCS.BAL]: No Evidence of Increased Autonomic Activity (i.e. HR>120, tremor, sweating, agitation, nausea)?: No Result: 2 Time Spent with Patient Time Spent with Patient: <25 minutes Time was spent: preparing to see the patient(eg.review tests), indepentently interpreting results and counseling the patient
[2024-03-13 09:45] LABS: Iron 17 ug/dL (50-170); Total Iron Binding Capacity 429 ug/dL (250-450); Transferrin Sat 4 % (15-50)
[2024-03-13 09:59] LABS: Ferritin 46 ng/mL (8-252)
[2024-03-13 10:20] LABS: Vitamin B12 194 pg/mL (193-986)
[2024-03-13] MEDS: Thiamine 100 MG TAB PO (10:48)
[2024-03-13] MEDS: Folic Acid 1 MG TAB PO (10:48)
[2024-03-13] MEDS: traMADol 50 MG TAB PO ×2 (10:49→13:49)
[2024-03-13] MEDS: Cyanocobalamin 500 MCG TAB PO (10:50)
[2024-03-13] MEDS: MAGNESIUM SULFATE 2 GM/50 ML BAG IV_INF (10:52)
[2024-03-13] MEDS: Acetaminophen 500 MG TAB 1000 MG PO (12:14)
[2024-03-13 12:38] VITALS: BP 115/80; PULSE 86; RESP 16; TEMP 36.7; O2SAT 93
--- NOTE | 2024-03-13 13:45 | W.PM.DS.N ---
Date of service: 03/13/24 Time of Service: 13:46 DS: Diagnosis Discharge Diagnosis (1) Abdominal pain: Status: Acute (2) Intra abdominal hemorrhage: Status: Acute (3) Anemia: Status: Chronic (4) Perisplenic hematoma: Status: Acute (5) Cyst and pseudocyst of pancreas: Status: Acute (6) Alcohol use disorder: Status: Acute (7) Anxiety: Status: Chronic (8) COPD (chronic obstructive pulmonary disease): Status: Chronic (9) Depression: Status: Chronic Discharge Plan Disposition Patient Disposition: Home Condition: Improving Discharge Details Reason For Visit: perisplenic hematoma,rup pancreatic cyst,anemia,AB Admit Date/Time: 03/12/24 13:54 Admit Provider: Slava Garcia Attending Provider: Slava Garcia Primary Care Provider: Paula Barboza Hospital Course Hospital Course: This 53-year-old female patient with past medical history of COPD, EtOH abuse, anemia, splenic rupture with rib fracture and embolization was transferred back from [facility] status post ED to ED transfer on 03/10/2024 upon presentation to the ED at [facility] for evaluation of left upper quadrant and flank pain with CTh showing suspicion of splenic and abdominal hemorrhage versus developing abscess with fluid collection pulling in the lower pelvis. Workup in the ED showed an hemoglobin at 8.6 down from 13 in 2022, MCV of 74, BUN at 24. Based on laboratory findings and imaging ,discussion between general surgery, hospitalist and ED provider determined that patient would require ICU level of care for frequent laboratory studies, serial abdominal examinations, and potential management of alcohol withdrawal given this patient's daily alcohol use; no ICU bed were available at the time at [facility]. The patient was transferred to [facility] on the day of presentation. The patient remains in the ED at [facility] where she received 1 units per PRBC. The abdomen and pelvic CT from 03/10 was reviewed and a radilogy consult concluded to no suspicious slpenic lesions with heterogenous irregularly shaped fluid collection extending form the pancreatic tail to the perisplenic and subdiaphragmatic most likely consistent with sequella of walled off necrosis of inderspace As the patient H&H remained stable, [facility] initiated transfer back to [facility] today, with recommendations for serial H&H and outpatient ABD/pelvis CT follow up. When seen in her room, the patient confirmed full CODE STATUS. The patient denied malaise, fever or chills, hemoptysis, hematochezia, nausea and vomiting. She reported an episode of black stool happening about 2 weeks ago. The patient is hemodynamically stable, hungry and able to tolerate solid and liquid oral intake. Serial CBC's showed a stable H&H- to be repeated as per PCP's discretion. Abdominal pain was controlled with 3 doses of 1mg of IV morphine overnight as well as scheduled acetaminophen.A PPI was started and will continue outpatient. Pain management was transitioned to oral tramadol and an increased frequency of acetaminophen but the patient still c/o pain. She was transitioned to oral morphine sulfate; calculation based on total morphine dosing overnight. The patient will continue this pain management regimen upon discharge with further adjustment as per PCP. The patient was seen by surgery without recommendation for surgical intervention, outpatient anemia workup, stool for occult blood was negative.The patient will need to follow-up with her PCP within 7 days of discharge. CBC ordered for 03/18/2024 with results to PCP. A repeat abdominal CT as an outptient was also recommended by M. Referral to [facility] surgical services was also ordered. . Home Meds and New Rx's Prescriptions: New acetaminophen 500 mg Tablet 1,000 mg PO QID Qty: 40 0RF Rx Instructions: Take for 5 days as scheduled then stop and resume your previous as needed regimen cyanocobalamin (vitamin B-12) [Vitamin B-12] 500 mcg Tablet 500 mcg PO DAILY Qty: 30 0RF docusate sodium [Colace] 100 mg Capsule 100 mg PO BID Qty: 60 0RF ferrous sulfate 325 mg (65 mg iron) Tablet 325 mg PO DAILY Qty: 30 0RF folic acid 1 mg Tablet 1 mg PO DAILY Qty: 30 0RF thiamine mononitrate (vit B1) [Vitamin B-1 (mononitrate)] 100 mg Tablet 100 mg PO DAILY Qty: 30 0RF morphine 15 mg tablet 7.5 mg PO Q6H PRNQty: 10 0RF Continued lisinopril 20 mg tablet 20 mg PO DAILY Qty: 90 3RF citalopram 40 mg tablet 40 mg PO DAILY Qty: 90 3RF propranolol 20 mg tablet 20 mg PO BID Qty: 180 1RF Spiriva Respimat 1.25 mcg/actuation mist 2 puff inhalation DAILY Qty: 4 12RF quetiapine 100 mg tablet See Rx Instructions .ROUTE .COMPLEX Qty: 135 0RF Dose Instruction: TAKE 1 & 1/2 TABLETS BY MOUTH AT BEDTIME DAILY Rx Instructions: TAKE 1 & 1/2 TABLETS BY MOUTH AT BEDTIME DAILY (DME) Hand Held Nebulizer See Rx Instructions .Route .MEDSUPPLY Qty: 1 0RF Rx Instructions: As directed albuterol sulfate 2.5 mg /3 mL (0.083 %) solution for nebulization 2.5 mg inhalation Q4H PRN (Reason: shortness of breath or wheezing) Qty: 180 3RF hydroxyzine HCl 25 mg tablet 25 mg PO TID PRN (Reason: anxiety) Qty: 180 1RF clobetasol-emollient 15 GM cream 1 applic Topical DAILY PRNQty: 60 Rx Instructions: Apply to hands PRN (DME) POCKET CHAMBER Spacer See Rx Instructions .ROUTE .MEDSUPPLY Qty: 1 0RF Rx Instructions: As directed doxepin 25 mg capsule See Rx Instructions .ROUTE .COMPLEX Qty: 60 5RF Dose Instruction: TAKE ONE CAPSULE BY MOUTH TWICE A DAY Rx Instructions: TAKE ONE CAPSULE BY MOUTH TWICE A DAY albuterol sulfate [Ventolin HFA] 90 mcg/actuation HFA aerosol inhaler See Rx Instructions .ROUTE .COMPLEX Qty: 18 12RF Dose Instruction: INHALE TWO PUFFS BY MOUTH EVERY 4 HOURS NEEDED Rx Instructions: INHALE TWO PUFFS BY MOUTH EVERY 4 HOURS NEEDED trazodone 50 mg tablet See Rx Instructions .ROUTE .COMPLEX Qty: 135 1RF Dose Instruction: TAKE 1 & 1/2 TABLETS BY MOUTH DAILY AT BEDTIME NEEDED FOR SLEEP Rx Instructions: TAKE 1 & 1/2 TABLETS BY MOUTH DAILY AT BEDTIME NEEDED FOR SLEEP (DME) nebulizers [facility] See Rx Instructions .ROUTE .MEDSUPPLY Qty: 1 0RF Rx Instructions: As directed Discharge Instructions Stand Alone Forms: Nursing Discharge Form Referrals: Tonny Lemus MD [ [facility] STAFF PHYSICIAN] - 03/26/24 1:30 pm (F/u within 1-2 weeks of discharge for anemia workup) Paula Barboza NP [Primary Care Provider] - 04/01/24 3:00 pm (F/u please within 7 days of discharge) Activity:: Activity as Tolerated Equipment/Supplies:: No Equipment Needed Diet:: Heart healthy- iron and vit C rich Discharge Orders Discharge Orders: Discharge Order (Routine); Ordered 03/13/24 Ordered By: Albina Naqvi Other Ambulatory Orders: Occult Blood Stool Guaiac(1sp) (Routine) Timeframe: 20240314 Facility: [facility] - Location: Laboratory Outpatient - [facility] Ordered By: Albina Naqvi DS: Summary Time Spent with Patient providing and/or coordinating discharge services: Greater than 30 minutes Status at Discharge Functional status at discharge: independent ambulation Overall status at discharge: patient is progressing back to baseline Mental Status: mental status grossly normal Speech and Movement: speech and movement normal Mood: congruent mood Affect: normal affect Quality:SDOH Health Related Social Needs: Health related social needs housing instability, housed, with risk of homelessness (Z59.811), food insecurity (Z59.41), problems related to housing/economic circumstances (Z59.89), problems finding work (Z56.9) Exam Narrative Exam Narrative: Constitutional The patient is sitting in chair, eating lunch with enthusiasm w/o acute distress Neuro:alert and oriented X4- non-focal Chest:Chest is symmetrical and normal appearance Resp:Unlabored breathing, clear lung bilaterally Cardio: regular rhythm, S1, S2, no murmur heard but patient reports history, positive radial pulses GI: Abdomen is not distended, soft and tenderLUQ - guarding during exam , bowel sounds are present- non-acute abd : Negative Costovertebral angle tenderness Back/spine/Pelvis: No back tenderness but LUQ -lat LL thoracic tenderness , normal alignment Integumentary: No skin lesions or rash on exposed skin Extremities: strength 5/5 to bilateral lower and upper extremities Psych: RASS 0, congruent mood and normal affect. Psych Mental Status: mental status grossly normal Speech and Movement: speech and movement normal Mood: congruent mood Affect: normal affect DS: Data Vitals/I&O Vitals and I&O: Vital Signs Temperature 36.7 C 03/13/24 12:38 Temperature Source Temporal Artery Scan 03/13/24 12:38 Pulse 86 03/13/24 12:38 Pulse Rhythm Regular 03/12/24 16:06 Respiratory Rate 16 03/13/24 12:38 Respiratory Effort Normal 03/12/24 16:06 Respiratory Depth Normal 03/12/24 16:06 Respiratory Pattern Normal 03/12/24 16:06 Blood Pressure 115/80 03/13/24 12:38 Pulse Oximetry 93 03/13/24 12:38 Oxygen Delivery Method Room Air 03/13/24 12:38 Oxygen Flow Rate 0 03/13/24 12:38 Pain Level 9 03/13/24 13:14 Comment patient did not want to woken up at 3 am 03/13/24 04:07 Intake & Output 03/12/24 03/13/24 03/13/24 23:59 11:59 23:59 Intake Total 850 / 1150 300 / 580 280 / 580 Output Total 100 / 100 1200 / 1200 Balance 750 / 1050 -900 / -620 280 / -620 Weight 74.843 kg Intake: Oral 850 / 1150 300 / 580 280 / 580 Output: Urine 100 / 100 1200 / 1200 Other: Urine Color Yellow Yellow Urine Appearance Clear Clear Urine Odor None Normal Comment per patient she voided per patient voided in toilet Stool Size Small Stool Characteristics Formed Data Completed and Pending Labs on day of discharge: Labs from last 24 hours 03/13/24 03/13/24 03/12/24 10:00 06:20 17:10 WBC 8.09 8.71 RBC 3.66 L 3.87 L Hgb 8.3 L 8.7 L Hct 28.8 L 30.3 L MCV 79 L 78 L D MCH 22.7 L 22.5 L MCHC 28.8 L 28.7 L RDW 20.5 H 20.3 H Plt Count 395 433 H MPV 9.9 9.8 Immature Gran % 0.5 0.2 Neutrophils % 55.1 59.8 Lymphocytes % 26.2 23.1 Monocytes % 7.7 8.0 Eosinophils % 9.5 8.0 Basophils % 1.0 0.9 Nucleated RBC % 0.0 0.0 Absolute Neutrophils 4.46 5.20 Absolute Lymphocytes 2.12 2.01 Absolute Monocytes 0.62 0.70 Absolute Eosinophils 0.77 H 0.70 Absolute Basophils 0.08 0.08 RBC Morphology See Below See Below Polychromasia Present Hypochromasia 1+ Poikilocytosis 1+ 1+ Anisocytosis 2+ 1+ Sodium 137 Potassium 4.8 Chloride 102 Carbon Dioxide 27.6 Anion Gap 7.4 BUN 22 H Creatinine 1.0 Est GFR (CKD-EPI 2020) 66.53 Glucose 115 H Calcium 8.8 Magnesium 1.7 L Iron 17 L TIBC 429 Transferrin Pending Transferrin % Sat 4 L Ferritin 46 Total Bilirubin 0.60 AST 11 L ALT 14 Alkaline Phosphatase 93 Total Protein 8.3 H Albumin 3.7 Vitamin B12 194 Methylmalonic Acid Pending Homocysteine Pending PFSH All Active Problems (Updated 03/13/24 @ 09:40 by Albina Naqvi APRN) Cyst and pseudocyst of pancreas (Acute) Abdominal pain (Acute) COPD (chronic obstructive pulmonary disease) (Chronic) Alcohol use disorder (Acute) Intra abdominal hemorrhage (Acute) Anemia (Chronic) Perisplenic hematoma (Acute) Left axillary swelling (Acute ~07/2022) 07/21/22 Gen Surgery Alcohol abuse (Chronic) Heavy menses (Acute) Encounter for screening colonoscopy (Acute) Anemia (Chronic) Anxiety (Chronic) DUB (dysfunctional uterine bleeding) (Acute) Depression (Chronic 04/03/15) Sertaline in the past with good relief of sx but then developed intolerable adverse rxns (nausea, flushing) Started on venlafaxine 03/2015 PHQ9 score = 9, indicating mild depression 03/2015 Chronic pain (Acute 02/20/09) chronic tramadol rx, back pain, sciatica despite LS surg 2009. Impaired fasting blood sugar (Acute 08/01/05) Obesity, unspecified (Acute 05/31/11) Atypical squamous cells of undetermined significance (ASC-US) on cervical Pap smear (Acute 08/05/09) ASCUS 08/05/09; 05/31/2011 Spinal stenosis of lumbar region (Acute 01/11/10) LS spine surg; Dr Sebastian Walker Tobacco dependence (Acute 08/01/05) Medical History (Updated 03/13/24 @ 09:40 by Albina Naqvi APRN) HTN (hypertension), benign Tobacco use disorder Spinal stenosis Lumbar region Surgical History Back surgery L5-S1 decompression 2009 Family History Mother , lung cancer at age 50. No problems noted. Father , MVA No problems noted. Other Lung cancer Social History Smoking/Tobacco Use Status: Current every day Tobacco Type: cigarettes Smoking risk assessment performed?: Yes Alcohol Intake: current Alcohol Intake frequency: 3 or more drinks per day Alcohol type: beer and hard liquor Drug use: Never Substance use type: does not use Housing: other Do you feel safe at home: Yes Do you feel safe in your relationship?: Yes Time Spent with Patient Time Spent with Patient: 70-84 minutes4 Time was spent: preparing to see the patient(eg.review tests), obtaining and/or reviewing separately otained hiistory, ordering medications,tests, procedures, referring, communicating with other health child care sitter, indepentently interpreting results, counseling the patient and care coordination
[2024-03-13 14:36] VITALS: BP 114/77; PULSE 82; RESP 20; TEMP 36.6; O2SAT 95
[2024-03-13 18:28] LABS: Homocysteine 28.5 umol/L (5.0-13.9)
[2024-03-14 10:45] LABS: Transferrin 372 mg/dL (201-352)
[2024-03-17 12:24] LABS: Methylmalonic Acid 0.69 nmol/mL (<=0.40)
== END 2024-03-13 16:01 | disposition home or self-care (01) | DRG 439 ==
PROVIDERS: Nurse Practitioner Acute Care; Admitting Provider Family Medicine; PCP Nurse Practitioner; Visit Provider Family Medicine
DX: K86.3 Pseudocyst of pancreas (principal); R18.8 Other ascites; D50.9 Iron deficiency anemia, unspecified; J44.9 Chronic obstructive pulmonary disease, unspecified; F10.10 Alcohol abuse, uncomplicated; F41.9 Anxiety disorder, unspecified; F32.A Depression, unspecified; E66.9 Obesity, unspecified; R73.01 Impaired fasting glucose; M48.061 Spinal stenosis, lumbar region without neurogenic claudication; F17.210 Nicotine dependence, cigarettes, uncomplicated; D73.5 Infarction of spleen
CPT/HCPCS: 00123; 36415; 80053; 80186; 83090; 94640; 97161; 82270; 82607; 82728; 83540; 83550; 83735; 84466; 85025; 94664; 94760; 99223; 99239; J2270; J2470; J3475

== ENCOUNTER 2024-03-21 23:02 | Emergency (ER) | payer MEDICAID, SELFPAY ==
[2024-03-21 23:16] VITALS: BP 104/68; PULSE 100; RESP 16; TEMP 37; O2SAT 92
--- NOTE | 2024-03-22 | DI.CT_ITS ---
Exam(s) CT ABDOMEN PELVIS W EXAM: CT ABDOMEN PELVIS W CLINICAL HISTORY: splenic hematoma, psuedocyst, ongoing LUQ pain TECHNIQUE: Imaging Protocol: Axial computed tomography images with coronal and sagittal reformatted images were created and reviewed. CONTRAST MATERIAL: Intravenous: Omnipaque 350 Contrast volume:65 mL Oral: No COMPARISON: CT CT ABDOMEN PELVIS W from 03/10/2024 FINDINGS: The examination is limited due to patient motion artifact. ABDOMEN: Lung Bases: No acute abnormality. Liver: Normal density. No measurable mass. Portal and superior mesenteric veins: Unremarkable. Gallbladder and Biliary Tract: No radiodense calculus or dilation. Pancreas: There is again seen a in capsulated fluid collection at the tail of the pancreas and extend ing superiorly along the surface of the diaphragm. It is shown interval increase in size compared to the prior examination. The component extending from the tail of the pancreas to the spleen measures 7.8 x 3.0 cm. This compares to 6 x 1.2 cm on the prior examination. There is a component into the anterior aspect of the left upper quadrant which now measures 3.7 x 2.3 cm (series 10, image 24). Th is is also shown increase in size. The pancreas is otherwise unchanged. Spleen: There is again seen heterogeneity of the spleen following embolization. Adrenals: No masses seen. Kidneys: Normal size, contour and axis. No radiodense stones or obstructive uropathy. No masses seen. Abdominal Aorta: Abdominal portion non-dilated. Atherosclerotic calcification is present. Bowel: No obstruction or bowel wall thickening. Appendix is unremarkable. Peritoneal Cavity: No ascites, collection or mesenteric inflammatory response. No free air. Lymph Nodes: Within normal limits. Bones: Within normal limits for the patient's age. Old healed and nonunited rib fractures. Soft Tissues: Unremarkable. PELVIS: Bladder: Symmetric distention, no gross wall thickening. Reproductive Organs: There is a calcified uterine fibroid present. Lymph Nodes: Within normal limits. Bones: Within normal limits for the patient's age. IMPRESSION: 1. Interval increase in size of the fluid collection at the tail of the pancreas and adjacent to the spleen in the left upper quadrant. 2. Differential considerations include abscess, pseudocyst, seroma or hematoma. RADIATION DOSE DELIVERED: 588.52mGy.cm Total DLP DATA REPOSITORY: All CT scans at this facility are submitted to the National Radiology Data Registry (NRDR) Dose Index Registry (DIR) with the [employer] (ACR). RADIATION OPTIMIZATION: All CT scans at this facility use at least one of these dose optimization te chniques: automated exposure control; mA and/or kV adjustment per patient size (includes targeted exa ms where dose is matched to clinical indication); or iterative reconstruction.
[2024-03-22 00:31] LABS: Bilirubin Negative (Negative); Blood Trace-intact (Negative); Clarity Clear (Clear); Glucose Negative (Negative); Ketones Negative (Negative); Leukocyte Esterase Negative (Negative); Nitrite Negative (Negative); Urobilinogen 0.2 mg/dL (Up to 0.2)
[2024-03-22 00:34] LABS: Bacteria Rare HPF (Negative); C & S Indicated? No; Casts Negative LPF (Negative); Crystals Negative HPF (Negative); Epithelial Cells Rare HPF (Negative); Mucus Negative (Negative); WBC Negative HPF (0-5)
[2024-03-22] MEDS: MORPHine 10 MG/ML VIAL 6 MG IVP (00:56)
[2024-03-22] MEDS: Ondansetron 4 MG/2 ML VIAL IVP (00:56)
[2024-03-22 01:04] LABS: Absolute Basophil Count 0.08 10^3/uL (0.0-0.2); Absolute Lymphocyte Count 1.39 10^3/uL (1.2-3.4); Absolute Monocyte Count 0.72 10^3/uL (0.1-0.8); Absolute Neutrophil Count 8.78 10^3/uL (1.2-6.7); Basophils % 0.7 %; Eosinophils % 4.3 %; HCT 24.7 % (36.0-46.0); HGB 7.3 g/dL (11.2-15.7); Immature Grans % 0.9 %; MCH 23.4 pg (27.0-33.0); MCHC 29.6 % (32.0-36.0); MCV 79 fL (80-95); MPV 9.6 fL (8.0-11.0); Monocytes % 6.2 %; Neutrophils % 75.9 %; Nucleated RBC 0.2 % (0.0-0.3); Platelet Count 511 10^3/uL (130-400); RBC 3.12 10^6/uL (3.93-5.22); RDW 23.9 % (11.7-14.6); RDW-SD 66.2 fL; WBC 11.57 10^3/uL (4.4-10.8)
[2024-03-22 01:12] LABS: Anisocytosis 2+
[2024-03-22 01:17] LABS: ALT 35 U/L (14-59); AST 76 U/L (15-37); Albumin 2.9 g/dL (3.4-5.0); Alkaline Phosphatase 100 U/L (46-116); Anion Gap 11.7 mmol/L (3-11); BUN 40 mg/dL (7-18); Bilirubin, Total 0.28 mg/dL (0.2-1.0); CO2 21.3 mmol/L (21.0-32.0); CREATININE 1.6 mg/dL (0.55-1.02); Chloride 99 mmol/L (98-107); ETHANOL BLOOD 179.1 mg/dL (<10); Estimated GFR 37.85 (mL/min/1.73m2); Glucose 97 mg/dL (74-106); Lipase 74 U/L (<78); Potassium 5.1 mmol/L (3.5-5.1); Sodium 132 mmol/L (136-145); Total Protein 8.2 g/dL (6.4-8.2)
[2024-03-22] MEDS: Omnipaque 350 MG/ML 100 ML BTL IJ (01:20)
[2024-03-22] MEDS: Normal Saline - Diluent 50 ML VIAL IJ (01:21)
[2024-03-22] MEDS: Normal Saline Flush 10 ML SYR IVP (01:21)
[2024-03-22 01:23] LABS: Calcium 8.7 mg/dL (8.5-10.1)
[2024-03-22 01:32] LABS: INR 1.1 (0.9-1.1); Prothrombin Time 10.6 sec (9.1-11.1)
--- NOTE | 2024-03-22 01:45 | ED.GENADUL_ITS ---
Discharge Plan Disposition Patient Disposition: Home Condition: Serious Discharge Details Clinical Impression: Cyst and pseudocyst of pancreas, Alcohol intoxication in active alcoholic with complication, Constipation due to opioid therapy, Abdominal pain, LUQ Primary Care Provider: Paula Barboza ED Provider: David Warner Home Meds and New Rx's Prescriptions: New hydromorphone [Dilaudid] 2 mg tablet 2 mg PO Q8H PRN (Reason: pain) Qty: 20 0RF polyethylene glycol 3350 [Miralax] 17 gram/dose powder 17 g PO .Nightly Qty: 510 0RF bisacodyl 10 mg suppository 10 mg NV DAILY PRN (Reason: constipation lobger than 48 hours) Qty: 12 0RF No Action lisinopril 20 mg tablet 20 mg PO DAILY Qty: 90 3RF citalopram 40 mg tablet 40 mg PO DAILY Qty: 90 3RF propranolol 20 mg tablet 20 mg PO BID Qty: 180 1RF Spiriva Respimat 1.25 mcg/actuation mist 2 puff inhalation DAILY Qty: 4 12RF quetiapine 100 mg tablet See Rx Instructions .ROUTE .COMPLEX Qty: 135 0RF Dose Instruction: TAKE 1 & 1/2 TABLETS BY MOUTH AT BEDTIME DAILY Rx Instructions: TAKE 1 & 1/2 TABLETS BY MOUTH AT BEDTIME DAILY (DME) Hand Held Nebulizer See Rx Instructions .Route .MEDSUPPLY Qty: 1 0RF Rx Instructions: As directed albuterol sulfate 2.5 mg /3 mL (0.083 %) solution for nebulization 2.5 mg inhalation Q4H PRN (Reason: shortness of breath or wheezing) Qty: 180 3RF hydroxyzine HCl 25 mg tablet 25 mg PO TID PRN (Reason: anxiety) Qty: 180 1RF clobetasol-emollient 15 GM cream 1 applic Topical DAILY PRNQty: 60 Rx Instructions: Apply to hands PRN (DME) POCKET CHAMBER Spacer See Rx Instructions .ROUTE .MEDSUPPLY Qty: 1 0RF Rx Instructions: As directed doxepin 25 mg capsule See Rx Instructions .ROUTE .COMPLEX Qty: 60 5RF Dose Instruction: TAKE ONE CAPSULE BY MOUTH TWICE A DAY Rx Instructions: TAKE ONE CAPSULE BY MOUTH TWICE A DAY albuterol sulfate [Ventolin HFA] 90 mcg/actuation HFA aerosol inhaler See Rx Instructions .ROUTE .COMPLEX Qty: 18 12RF Dose Instruction: INHALE TWO PUFFS BY MOUTH EVERY 4 HOURS NEEDED Rx Instructions: INHALE TWO PUFFS BY MOUTH EVERY 4 HOURS NEEDED trazodone 50 mg tablet See Rx Instructions .ROUTE .COMPLEX Qty: 135 1RF Dose Instruction: TAKE 1 & 1/2 TABLETS BY MOUTH DAILY AT BEDTIME NEEDED FOR SLEEP Rx Instructions: TAKE 1 & 1/2 TABLETS BY MOUTH DAILY AT BEDTIME NEEDED FOR SLEEP acetaminophen 500 mg Tablet 1,000 mg PO QID Qty: 40 0RF Rx Instructions: Take for 5 days as scheduled then stop and resume your previous as needed regimen cyanocobalamin (vitamin B-12) [Vitamin B-12] 500 mcg Tablet 500 mcg PO DAILY Qty: 30 0RF docusate sodium [Colace] 100 mg Capsule 100 mg PO BID Qty: 60 0RF ferrous sulfate 325 mg (65 mg iron) Tablet 325 mg PO DAILY Qty: 30 0RF folic acid 1 mg Tablet 1 mg PO DAILY Qty: 30 0RF thiamine mononitrate (vit B1) [Vitamin B-1 (mononitrate)] 100 mg Tablet 100 mg PO DAILY Qty: 30 0RF morphine 15 mg tablet 7.5 mg PO Q6H PRNQty: 10 0RF pantoprazole [Protonix] 40 mg tablet,delayed release (DR/EC) 40 mg PO DAILY Qty: 30 0RF (DME) nebulizers Misc See Rx Instructions .ROUTE .MEDSUPPLY Qty: 1 0RF Rx Instructions: As directed Discharge Instructions Instructions: Alcohol Use Disorder (DC), Chronic Pancreatitis (DC) Additional Instructions: You have complications related to your ongoing alcohol misuse disorder. You have expanding fluid collections in the tail of your pancreas called pseudocyst, which are caused by the inflammation of your pancreas by alcohol consumption. This is the basis for your ongoing left upper quadrant abdominal pain. If you have any sudden changes in that pain such as a sudden marked increase, black or bloody stools, or pallor with dizziness and fainting, you should seek medical attention urgently for reevaluation. You have an ongoing anemia which is most likely related to bone marrow poisoning from the ongoing alcohol consumption. You may ultimately require additional transfusions in the future, although you do not require them currently. You have developed constipation from having an adequate bowel regimen in the setting of using opioid therapy for management of your left upper quadrant pain. You should continue to take 1 Colace tablet, every 8 hours, until you begin to have soft and normal bowel movements. You should reconstitute 17 g of oral MiraLAX powder (1 capful) in 8 to 12 ounces of clear liquid and drink this at night before bed. 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 In the short-term, you can also use bisacodyl suppositories intermittent as needed to get your bowels moving again. If you have no stool production for the next 48 hours, I would recommend trialing at least another bisacodyl suppository to help get this process started for you. You can take 1 oral Dilaudid tablet every 8-12 hours as needed for symptoms of ongoing pain management. If this causes you to have any itching, you can take 25 to 50 mg of oral Benadryl capsules, up to every 6 hours, as needed for help with the itching. HPI General Date/Time Provider Initiated Documentation: 03/21/24 23:04 . HPI Narrative: The patient is a 53-year-old female, with a past medical history significant for alcohol misuse disorder, who had a presumed recent fall with splenic hematoma and pseudocyst found in her pancreas. The patient was transferred to a local tertiary care center where she had evaluation of the splenic hematoma by CT and had drainage of the pseudocyst performed at that time. The patient was returned back to the local area and ultimately discharged with plans for outpatient surgical follow-up with outpatient labs and outpatient CT scanning. The patient tells me that she was not aware that she was supposed to have any outpatient testing done after discharge, and has not followed up for any additional studies. The patient does have planned outpatient surgical follow-up. She tells me that she is taking oral morphine at home several times a day, but does not feel that it is helping to control her pain. She has been constipated for 8 days and needs to have a bowel movement. The patient states that every time she pushes to try and have a bowel movement she has ongoing left upper quadrant discomfort. The patient had some urinary hesitancy also which she is concerned might be related to the constipation. The patient was prescribed a minimal dose of oral senna at the time of discharge which has not been successful in improving her opioid-based constipation. Related Data Home Medications ?Medication ?Instructions ?Recorded ?Confirmed clobetasol-emollient 0.05 % 1 applic topical DAILY PRN #60 12/08/16 03/21/24 topical cream grams inhalational spacing device #1 ea 09/28/20 03/12/24 (POCKET CHAMBER spacer) nebulizers #1 ea 03/16/21 03/12/24 albuterol sulfate 2.5 mg/3 mL 2.5 mg (3 mL) inhalation Q4H PRN 01/10/23 03/21/24 (0.083 %) solution for nebulization shortness of breath or wheezing #180 mL hydroxyzine HCl 25 mg tablet 25 mg PO TID PRN anxiety #180 tabs 01/10/23 03/21/24 Hand Held Nebulizer #1 ea 11/27/23 03/12/24 citalopram 40 mg tablet 40 mg PO DAILY #90 tabs 11/27/23 03/21/24 lisinopril 20 mg tablet 20 mg PO DAILY #90 tab-caps 11/27/23 03/21/24 propranolol 20 mg tablet 20 mg PO BID #180 tabs 11/27/23 03/21/24 quetiapine 100 mg tablet See Rx Instructions .Route 11/27/23 03/21/24 .COMPLEX #135 tabs tiotropium bromide 1.25 2 puff inhalation DAILY #4 grams 11/27/23 03/21/24 mcg/actuation mist for inhalation (Spiriva Respimat) albuterol sulfate 90 mcg/actuation See Rx Instructions .Route 01/22/24 03/21/24 aerosol inhaler (Ventolin HFA) .COMPLEX #18 grams doxepin 25 mg capsule See Rx Instructions .Route 01/22/24 03/21/24 .COMPLEX #60 caps trazodone 50 mg tablet See Rx Instructions .Route 01/22/24 03/21/24 .COMPLEX #135 tabs acetaminophen 500 mg tablet 1,000 mg (2 x 500 mg) PO QID #40 03/13/24 03/21/24 tabs cyanocobalamin (vitamin B-12) 500 500 mcg PO DAILY #30 tabs 03/13/24 03/21/24 mcg tablet (Vitamin B-12) docusate sodium 100 mg capsule 100 mg PO BID #60 caps 03/13/24 03/21/24 (Colace) ferrous sulfate 325 mg (65 mg 325 mg PO DAILY #30 tabs 03/13/24 03/21/24 iron) tablet folic acid 1 mg tablet 1 mg PO DAILY #30 tabs 03/13/24 03/21/24 morphine 15 mg immediate release 7.5 mg (1/2 x 15 mg) PO Q6H PRN 03/13/24 03/21/24 tablet #10 tabs pantoprazole 40 mg tablet,delayed 40 mg PO DAILY #30 tabs 03/13/24 03/21/24 release (Protonix) thiamine mononitrate (vit B1) 100 100 mg PO DAILY #30 tabs 03/13/24 03/21/24 mg tablet (Vitamin B-1 (mononitrate)) bisacodyl 10 mg rectal suppository 10 mg NV DAILY PRN constipation 03/22/24 lobger than 48 hours #12 ea hydromorphone 2 mg tablet 2 mg PO Q8H PRN pain #20 tabs 03/22/24 (Dilaudid) polyethylene glycol 3350 17 17 g PO .Nightly #510 grams 03/22/24 gram/dose oral powder (Miralax) Previous Rx's ?Medication ?Instructions ?Recorded inhalational spacing device #1 ea 09/28/20 (POCKET CHAMBER spacer) nebulizers #1 ea 03/16/21 albuterol sulfate 2.5 mg/3 mL 2.5 mg (3 mL) inhalation Q4H PRN 01/10/23 (0.083 %) solution for nebulization shortness of breath or wheezing #180 mL hydroxyzine HCl 25 mg tablet 25 mg PO TID PRN anxiety #180 tabs 01/10/23 Hand Held Nebulizer #1 ea 11/27/23 citalopram 40 mg tablet 40 mg PO DAILY #90 tabs 11/27/23 lisinopril 20 mg tablet 20 mg PO DAILY #90 tab-caps 11/27/23 propranolol 20 mg tablet 20 mg PO BID #180 tabs 11/27/23 quetiapine 100 mg tablet See Rx Instructions .Route 11/27/23 .COMPLEX #135 tabs tiotropium bromide 1.25 2 puff inhalation DAILY #4 grams 11/27/23 mcg/actuation mist for inhalation (Spiriva Respimat) albuterol sulfate 90 mcg/actuation See Rx Instructions .Route 01/22/24 aerosol inhaler (Ventolin HFA) .COMPLEX #18 grams doxepin 25 mg capsule See Rx Instructions .Route 01/22/24 .COMPLEX #60 caps trazodone 50 mg tablet See Rx Instructions .Route 01/22/24 .COMPLEX #135 tabs acetaminophen 500 mg tablet 1,000 mg (2 x 500 mg) PO QID #40 03/13/24 tabs cyanocobalamin (vitamin B-12) 500 500 mcg PO DAILY #30 tabs 03/13/24 mcg tablet (Vitamin B-12) docusate sodium 100 mg capsule 100 mg PO BID #60 caps 03/13/24 (Colace) ferrous sulfate 325 mg (65 mg 325 mg PO DAILY #30 tabs 03/13/24 iron) tablet folic acid 1 mg tablet 1 mg PO DAILY #30 tabs 03/13/24 morphine 15 mg immediate release 7.5 mg (1/2 x 15 mg) PO Q6H PRN 03/13/24 tablet #10 tabs pantoprazole 40 mg tablet,delayed 40 mg PO DAILY #30 tabs 03/13/24 release (Protonix) thiamine mononitrate (vit B1) 100 100 mg PO DAILY #30 tabs 03/13/24 mg tablet (Vitamin B-1 (mononitrate)) bisacodyl 10 mg rectal suppository 10 mg NV DAILY PRN constipation 03/22/24 lobger than 48 hours #12 ea hydromorphone 2 mg tablet 2 mg PO Q8H PRN pain #20 tabs 03/22/24 (Dilaudid) polyethylene glycol 3350 17 17 g PO .Nightly #510 grams 03/22/24 gram/dose oral powder (Miralax) Allergies Allergy/AdvReac Type Severity Reaction Status Date / Time hydromorphone (From Dilaudid) Allergy Severe Itching Verified 03/21/24 23:21 oxycodone AdvReac Unknown TERRIBLE Verified 03/21/24 23:21 DREAMS General Stated Complaint: Abd Prob ALISTAIR: 3 Exam Const General: cooperative and in distress Orientation: oriented x3 HENMT Head: normal to inspection Ears: hearing grossly normal bilaterally General nose exam: external nose normal Face and sinus: normal facial exam Mouth: oral mucosae normal Resp Effort & Inspection: normal respiratory effort and able to speak in complete sentences Auscultation: clear to auscultation bilaterally Cardio Rate: regular rate Rhythm: regular rhythm GI Inspection: normal to inspection and obesity Palpation: soft and guarding in the LUQ Auscultation: hypoactive bowel sounds Skin General skin exam: no rashes or lesions noted Lesions: no lesions Rashes: no rashes Neuro General: patient oriented x3, moves all extremities, normal light touch, pain and propioception, no focal motor deficits and CN's II-XI intact bilaterally Psych Speech and Movement: speech and movement normal Mood: anxious mood and irritable mood Course Vital Signs Vital signs: Vital Signs Temperature 37.0 C 03/21/24 23:16 Pulse 100 H 03/21/24 23:16 Respiratory Rate 16 03/21/24 23:16 Blood Pressure 104/68 03/21/24 23:16 Pulse Oximetry 92 03/21/24 23:16 Temperature 37.0 C 03/21/24 23:16 Temperature Source Skin 03/21/24 23:16 Pulse 100 H 03/21/24 23:16 Respiratory Rate 16 03/21/24 23:16 Blood Pressure 104/68 03/21/24 23:16 Pulse Oximetry 92 03/21/24 23:16 Oxygen Delivery Method Room Air 03/21/24 23:16 Oxygen Flow Rate 0 03/21/24 23:16 Pain Level 7 03/21/24 23:36 Lab/Test Results Lab/Test Results: Laboratory Tests Range/Units 03/21/24 03/22/24 03/22/24 23:50 00:51 01:12 WBC (4.4-10.8) 10^3/uL 11.57 H RBC (3.93-5.22) 10^6/uL 3.12 L Hgb (11.2-15.7) g/dL 7.3 L Hct (36.0-46.0) % 24.7 L MCV (80-95) fL 79 L MCH (27.0-33.0) pg 23.4 L MCHC (32.0-36.0) % 29.6 L RDW (11.7-14.6) % 23.9 H Plt Count (130-400) 10^3/uL 511 H MPV (8.0-11.0) fL 9.6 Immature Gran % % 0.9 Neutrophils % % 75.9 Lymphocytes % % 12.0 Monocytes % % 6.2 Eosinophils % % 4.3 Basophils % % 0.7 Nucleated RBC % (0.0-0.3) % 0.2 Absolute Neutrophils (1.2-6.7) 10^3/uL 8.78 H Absolute Lymphocytes (1.2-3.4) 10^3/uL 1.39 Absolute Monocytes (0.1-0.8) 10^3/uL 0.72 Absolute Eosinophils (0.0-0.7) 10^3/uL 0.50 Absolute Basophils (0.0-0.2) 10^3/uL 0.08 Anisocytosis 2+ PT (9.1-11.1) sec 10.6 INR (0.9-1.1) 1.1 Sodium (136-145) mmol/L 132 L Potassium (3.5-5.1) mmol/L 5.1 Chloride (98-107) mmol/L 99 Carbon Dioxide (21.0-32.0) mmol/L 21.3 Anion Gap (3-11) mmol/L 11.7 H BUN (7-18) mg/dL 40 H Creatinine (0.55-1.02) mg/dL 1.6 H Est GFR (CKD-EPI 2020) (mL/min/1.73m2) 37.85 Glucose (74-106) mg/dL 97 Calcium (8.5-10.1) mg/dL 8.7 Total Bilirubin (0.2-1.0) mg/dL 0.28 AST (15-37) U/L 76 H ALT (14-59) U/L 35 Alkaline Phosphatase (46-116) U/L 100 Total Protein (6.4-8.2) g/dL 8.2 Albumin (3.4-5.0) g/dL 2.9 L Lipase (<78) U/L 74 Urine Color (Yellow) Yellow Urine Clarity (Clear) Clear Urine pH (5-8) 6.0 Ur Specific Mineral (1.005-1.025) 1.020 Urine Protein (Neg-Trace) mg/dL Negative Urine Ketones (Negative) mg/dL Negative Urine Blood (Negative) Trace-intact H Urine Nitrite (Negative) Negative Urine Bilirubin (Negative) Negative Urine Urobilinogen (Up to 0.2) mg/dL 0.2 Ur Leukocyte Esterase (Negative) Negative Urine RBC (0-2) HPF 3-5 H Urine WBC (0-5) HPF Negative Ur Epithelial Cells (Negative) HPF Rare Urine Crystals (Negative) HPF Negative Urine Bacteria (Negative) HPF Rare Urine Casts (Negative) LPF Negative Urine Mucus (Negative) Negative Ur Culture Indicated? No Urine Glucose (Negative) mg/dL Negative Ethyl Alcohol (<10) mg/dL 179.1 H Medical Decision Making The patient was seen and examined. She has a modest anion gap metabolic acidosis which is almost assuredly related to the elevated ethanol level. Frederick ramsey told me in my initial interview that she did stop drinking, but clearly that is not the case. This is likely contributing to the patient's symptoms as she could have some ongoing pancreatic irritation with pseudocyst drainage or should could potentially have some alcoholic gastritis also causing additional upper abdominal discomfort. The patient has had about 4 points of hematocrit drop since the time of her discharge from the tertiary care center. She will undergo CT scanning of the abdomen and pelvis with contrast enhancements to determine if there is any ongoing extravasation of blood from her spleen with a increase in size of the hematoma or a collection around it. This will also help us to better assess for any constipation at the patient might have. The patient was given some increased analgesics here in the emergency room. Disposition will depend on discovery of pathology on her CT scan. The patient's CT scan shows an interval increase in size in the original collec tion in the left upper quadrant to 8.3 cm. Additionally, there is a new collection in the left upper quadrant measuring approximately 6.3 cm. The patient continues to drink alcohol and I discussed the case with Dr. Campbell, from surgery who feels that this most likely represents an ongoing expansion of the pseudocyst. He recommended against drainage at this time, as the patient would be very likely to develop a fistula which would represent a change of her chronic infection. He was especially cautious given that the patient continues to drink alcohol and will likely have ongoing increasing disease. The patient's blood counts have again dropped another 4 points of hematocrit, although she is not particularly symptomatic at this time and does not specifically require transfusion. The patient does have what appears to be a large stool ball or fecal impaction in her distal colon and rectum I manually performed a digital rectal exam to confirm this. The patient had a soapsuds enema ordered but did not tolerate it and refused additional enemas at this time. The patient did except a bisacodyl suppository. When I approached the patient about transfer to [facility] for ongoing evaluation of her pseudocyst, consultation a tertiary care center, and management of alcohol withdrawal potentially, the patient refused to travel to a distant tertiary care center. The patient is specifically seeking some management for her constipation and increased pain at this time. When we discussed the fact that she would be unlikely to require transfusion, she seems resistant to admission. The patient was given a bisacodyl suppository at approximately 3:30 AM, and she will be observed for some improvement in her bowels prior to further discussion of disposition. The patient produced a sizeable stool here in the ER after the bisacodyl suppository and some time. She continued to refused admission for further management. We discussed pain management, we discussed alcohol cessation. I encouraged her to continue with her outpatoient follow up. I will prescribe some additional pain medications and a bowel regimen for the patient to bring her to follow up. We discussed return precautions as increased LUQ pain (especially suddenly), black or bloody stools, dizziness or fainting. Quality:SDOH Health Related Social Needs: Health related social needs housing instability, house d, with risk of homelessness (Z59.811), food insecurity (Z59.41), problems related to housing/economic circumstances (Z59.89), problems finding work (Z56.9) PFSH All Active Problems (Updated 03/22/24 @ 04:55 by David Warner MD) Abdominal pain, LUQ (Acute) Constipation due to opioid therapy (Acute) Alcohol intoxication in active alcoholic with complication (Acute) Cyst and pseudocyst of pancreas (Acute) Abdominal pain (Acute) COPD (chronic obstructive pulmonary disease) (Chronic) Alcohol use disorder (Acute) Anemia (Chronic) Left axillary swelling (Acute ~07/2022) 07/21/22 Gen Surgery Alcohol abuse (Chronic) Heavy menses (Acute) Encounter for screening colonoscopy (Acute) Anemia (Chronic) Anxiety (Chronic) DUB (dysfunctional uterine bleeding) (Acute) Depression (Chronic 04/03/15) Sertaline in the past with good relief of sx but then developed intolerable adverse rxns (nausea, flushing) Started on venlafaxine 03/2015 PHQ9 score = 9, indicating mild depression 03/2015 Chronic pain (Acute 02/20/09) chronic tramadol rx, back pain, sciatica despite LS surg 2009. Impaired fasting blood sugar (Acute 08/01/05) Obesity, unspecified (Acute 05/31/11) Atypical squamous cells of undetermined significance (ASC-US) on cervical Pap smear (Acute 08/05/09) ASCUS 08/05/09; 05/31/2011 Spinal stenosis of lumbar region (Acute 01/11/10) LS spine surg; Mitzy Hughes, Dr Cortes Tobacco dependence (Acute 08/01/05) Medical History (Updated 03/22/24 @ 04:55 by David Warner MD) Intra abdominal hemorrhage Perisplenic hematoma HTN (hypertension), benign Tobacco use disorder Spinal stenosis Lumbar region Surgical History Back surgery L5-S1 decompression 2009 Family History Mother , lung cancer at age 50. No problems noted. Father , MVA No problems noted. Other Lung cancer Social History Smoking/Tobacco Use Status: Current every day Tobacco Type: cigarettes Smoking risk assessment performed?: Yes Alcohol Intake: current Alcohol Intake frequency: 3 or more drinks per day Alcohol type: beer and hard liquor Drug use: Never Substance use type: does not use Housing: other Do you feel safe at home: Yes Do you feel safe in your relationship?: Yes
[2024-03-22] MEDS: HYDROmorphone 2 MG/ML SYR 1 MG IVP (01:53)
[2024-03-22] MEDS: Normal Saline 100 ML 400 ML (01:54)
[2024-03-22] MEDS: diphenhydrAMINE 50 MG/ML VIAL IVPB (01:54)
[2024-03-22] MEDS: Lactated Ringers 1,000 ML 1000 ML IV (01:55)
--- NOTE | 2024-03-22 02:11 | DI.VRAD_ITS ---
PROCEDURE INFORMATION: Exam: CT Abdomen And Pelvis With Contrast Exam date and time: 03/22/2024 1:39 AM Age: 53 years old Clinical indication: Abdominal pain; Localized; Left upper quadrant (luq); Prior surgery; Surgery date: 6+ months; Surgery type: Back surgery; Splenic hematoma, psuedocyst, ongoing luq pain TECHNIQUE: Imaging protocol: Computed tomography of the abdomen and pelvis with contrast. Radiation optimization: All CT scans at this facility use at least one of these dose optimization techniques: automated exposure control; mA and/or kV adjustment per patient size (includes targeted exams where dose is matched to clinical indication); or iterative reconstruction. Contrast material: OMNIPAQUE 350; Contrast volume: 65 ml; Contrast route: INTRAVENOUS (IV); COMPARISON: CT ABDOMEN PELVIS W 03/10/2024 9:06 PM FINDINGS: Limitations: Motion artifact degrades image quality. Diaphragm: Elevated left hemidiaphragm. Liver: No focal hepatic lesion identified. Gallbladder and biliary ducts: Distended gallbladder. Questionable small gallbladder calculi. Pancreas: No CT evidence for acute pancreatitis. Spleen: Again seen are areas of decreased enhancement in the spleen, similar to prior study. There has been interval increase in a low-density fluid collection abutting the stomach, pancreatic tail, and spleen, now measuring approximately 8.3 cm in maximum diameter. There is an additional low-density collection anterior to this in the left upper quadrant, measuring approximately 6.4 cm in maximum diameter. Again seen is a small fluid collection at the medial aspect of the spleen, grossly stable. Adrenal glands: No mass. Kidneys and ureters: No hydronephrosis or evidence for pyelonephritis. Stomach and bowel: No intestinal obstruction is evident. Fluid in nondilated small bowel, nonspecific. Retained fecal material is present in the colon. The rectum is distended with fecal material and appears mildly thickened. Appendix: No evidence of appendicitis. Intraperitoneal space: No free air. Vasculature: Arterial calcifications. Lymph nodes: Nonspecific mesenteric and retroperitoneal lymph nodes. Urinary bladder: No acute findings. Reproductive: Fibroid uterus. Bones/joints: Nonacute rib deformities. Soft tissues: No pertinent acute abnormality seen. IMPRESSION: 1. Interval increase in fluid collections in the left upper quadrant as described above. Differential considerations include pseudocyst, nonacute hematoma, seroma, abscess. Follow-up as clinically warranted. 2. Areas of decreased enhancement in the spleen, similar to prior study. Consider infarcts, scarring, lacerations. 3. The rectum is distended with fecal material and appears mildly thickened. Stercoral colitis not excluded. 4. Additional findings as above. Dictated and Authenticated by: Cristina Robledo MD. Orderin Timmy Hernandez MD
[2024-03-22] MEDS: Bisacodyl 10 MG SUPP PR (03:30)
[2024-03-22 05:10] VITALS: BP 119/68; PULSE 90; RESP 16; O2SAT 95
--- NOTE | 2024-03-24 14:18 | NUR.NOTE ---
Patient called stating that she thought that there were some appointments scheduled for her, but she could not remember when they were and thought that we gave her those dates and times. I checked her last visit and did not see any mention of this. She is going to call her PCP first thing tomorrow morning to see if they can help her. Nursing Note:
== END 2024-03-22 05:11 | disposition home or self-care (01) ==
PROVIDERS: Emergency Provider Emergency Medicine Emergency Medical Services; PCP Nurse Practitioner
DX: K86.3 Pseudocyst of pancreas (principal); F10.129 Alcohol abuse with intoxication, unspecified; K51.00 Ulcerative (chronic) pancolitis without complications; R10.12 Left upper quadrant pain; Z79.891 Long term (current) use of opiate analgesic; Z59.811 Housing instability, housed, with risk of homelessness; Z59.41 Food insecurity; Z59.89 Other problems related to housing and economic circumstances; Z56.9 Unspecified problems related to employment; F17.210 Nicotine dependence, cigarettes, uncomplicated
CPT/HCPCS: 36415; 80053; 83690; 86850; 86900; 86901; 96361; 96374; 96375; 99285; 74177; 80320; 81003; 81015; 85025; 85610; J1171; J1200; J2270; J2405; J3490

== ENCOUNTER 2024-04-16 04:31 | Emergency (ER) | payer MEDICAID, SELFPAY ==
[2024-04-16 04:30] VITALS: BP 94/61; PULSE 77; RESP 16; TEMP 35.9; O2SAT 97
--- NOTE | 2024-04-16 04:30 | DI.CT_ITS ---
Exam(s) CT ABDOMEN PELVIS W EXAM: CT ABDOMEN PELVIS W CLINICAL HISTORY: N/V, hemeatemesis. TECHNIQUE: Imaging Protocol: Axial computed tomography images with coronal and sagittal reformatted images were created and reviewed CONTRAST MATERIAL: Intravenous: Omnipaque 350 Contrast volume:75 ml Oral: no COMPARISON: CT CT ABDOMEN PELVIS W from 03/22/2024 FINDINGS: ABDOMEN and PELVIS: Exam is mildly limited by respiratory motion on the upper images. Lung Bases: No acute findings. Liver: Normal density. No suspicious mass. Gallbladder and biliary tract: No radiodense calculus. No wall thickening or pericholecystic fluid. No biliary dilation. Pancreas: Normal density. No abnormal calcifications or inflammatory process. No evidence of mass. Spleen: Contour deformity related to previous trauma. Metallic densities again noted in the left uppe r quadrant. Significant interval decrease in previously noted left upper quadrant fluid collections. No new abnormalities are identified. Kidneys: Normal size, contour and axis. No radiodense stones. No obstructive uropathy. No suspicious masses seen. Adrenal glands: No masses seen. Vasculature: Abdominal aorta non-dilated. Change Soft tissues: Unremarkable. Bladder: No gross wall thickening. No calculi.No focal mass. Bowel: No obstruction. No bowel wall thickening. Appendix normal. Peritoneal cavity: No ascites. No mesenteric inflammatory response. No free air. Bones: Old left rib fractures. Reproductive organs: Uterine fibroids. Lymph nodes: No pathologically enlarged lymph nodes. IMPRESSION:: No acute abnormality in the abdomen or pelvis. Significant interval decrease in size of previously noted posttraumatic left upper quadrant fluid col lections. RADIATION DOSE DELIVERED: 436.31mGy.cm Total DLP DATA REPOSITORY: All CT scans at this facility are submitted to the National Radiology Data Registry (NRDR) Dose Index Registry (DIR) with the [employer] (A[employer]). RADIATION OPTIMIZATION: All CT scans at this facility use at least one of these dose optimization te chniques: automated exposure control; mA and/or kV adjustment per patient size (includes targeted exa ms where dose is matched to clinical indication); or iterative reconstruction.
[2024-04-16 04:45] LABS: Abs Immature Grans 0.01 10^3/uL (0.0-0.06); Absolute Basophil Count 0.15 10^3/uL (0.0-0.2); Absolute Eosinophil Count 0.18 10^3/uL (0.0-0.7); Absolute Lymphocyte Count 2.04 10^3/uL (1.2-3.4); Absolute Monocyte Count 0.28 10^3/uL (0.1-0.8); Absolute Neutrophil Count 1.56 10^3/uL (1.2-6.7); Basophils % 3.6 %; Eosinophils % 4.3 %; HCT 33.9 % (36.0-46.0); HGB 9.8 g/dL (11.2-15.7); Immature Grans % 0.2 %; Lymphocytes % 48.3 %; MCH 23.6 pg (27.0-33.0); MCHC 28.9 % (32.0-36.0); MCV 82 fL (80-95); MPV 9.8 fL (8.0-11.0); Monocytes % 6.6 %; Platelet Count 276 10^3/uL (130-400); RBC 4.15 10^6/uL (3.93-5.22); RDW 25.2 % (11.7-14.6); RDW-SD 73.7 fL; WBC 4.22 10^3/uL (4.4-10.8)
[2024-04-16] MEDS: Ondansetron 4 MG/2 ML VIAL IVP (04:46)
[2024-04-16 04:58] VITALS: PULSE 70; RESP 15
[2024-04-16 04:59] LABS: PTT Activated 22.5 sec (20.6-30.2); Prothrombin Time 10.2 sec (9.1-11.1)
[2024-04-16 05:00] VITALS: PULSE 71; RESP 14
[2024-04-16 05:04] LABS: Anisocytosis 1+; Diff Comment RBC Morph Reviewed; Hypochromasia 1+; Polychromasia Present
[2024-04-16] MEDS: Normal Saline Flush 10 ML SYR IVP (05:06)
[2024-04-16] MEDS: Normal Saline - Diluent 50 ML VIAL IJ (05:06)
[2024-04-16] MEDS: Omnipaque 350 MG/ML 100 ML BTL IJ (05:07)
[2024-04-16] MEDS: Pantoprazole 40 MG VIAL 80 MG IVP (05:09)
[2024-04-16 05:10] VITALS: PULSE 76; RESP 19; O2SAT 94
[2024-04-16 05:11] LABS: ALT 18 U/L (14-59); AST 19 U/L (15-37); Albumin 3.6 g/dL (3.4-5.0); Alkaline Phosphatase 109 U/L (46-116); Anion Gap 11.4 mmol/L (3-11); BUN 14 mg/dL (7-18); Bilirubin, Total 0.17 mg/dL (0.2-1.0); CO2 25.6 mmol/L (21.0-32.0); CREATININE 1.3 mg/dL (0.55-1.02); Calcium 8.6 mg/dL (8.5-10.1); Chloride 104 mmol/L (98-107); Estimated GFR 48.56 (mL/min/1.73m2); Glucose 119 mg/dL (74-106); Lipase 50 U/L (<78); Magnesium 2.1 mg/dL (1.8-2.4); Potassium 3.6 mmol/L (3.5-5.1); Sodium 141 mmol/L (136-145); Total Protein 8.2 g/dL (6.4-8.2)
[2024-04-16 05:12] LABS: ETHANOL BLOOD 439.4 mg/dL (<10)
[2024-04-16] MEDS: cefTRIAXone 1 GM/50 ML BAG IVPB (05:20)
--- NOTE | 2024-04-16 05:20 | W.ED.GENAD ---
Discharge Plan Disposition Patient Disposition: Home Condition: Good Discharge Details Clinical Impression: Chronic upper gastrointestinal bleeding Primary Care Provider: Paula Barboza ED Provider: Zara Macias Home Meds and New Rx's Prescriptions: Continued lisinopril 20 mg tablet 20 mg PO DAILY Qty: 90 3RF citalopram 40 mg tablet 40 mg PO DAILY Qty: 90 3RF propranolol 20 mg tablet 20 mg PO BID Qty: 180 1RF Spiriva Respimat 1.25 mcg/actuation mist 2 puff inhalation DAILY Qty: 4 12RF quetiapine 100 mg tablet See Rx Instructions .ROUTE .COMPLEX Qty: 135 0RF Dose Instruction: TAKE 1 & 1/2 TABLETS BY MOUTH AT BEDTIME DAILY Rx Instructions: TAKE 1 & 1/2 TABLETS BY MOUTH AT BEDTIME DAILY (DME) Hand Held Nebulizer See Rx Instructions .Route .MEDSUPPLY Qty: 1 0RF Rx Instructions: As directed albuterol sulfate 2.5 mg /3 mL (0.083 %) solution for nebulization 2.5 mg inhalation Q4H PRN (Reason: shortness of breath or wheezing) Qty: 180 3RF hydroxyzine HCl 25 mg tablet 25 mg PO TID PRN (Reason: anxiety) Qty: 180 1RF clobetasol-emollient 15 GM cream 1 applic Topical DAILY PRNQty: 60 Rx Instructions: Apply to hands PRN (DME) POCKET CHAMBER Spacer See Rx Instructions .ROUTE .MEDSUPPLY Qty: 1 0RF Rx Instructions: As directed doxepin 25 mg capsule See Rx Instructions .ROUTE .COMPLEX Qty: 60 5RF Dose Instruction: TAKE ONE CAPSULE BY MOUTH TWICE A DAY Rx Instructions: TAKE ONE CAPSULE BY MOUTH TWICE A DAY albuterol sulfate [Ventolin HFA] 90 mcg/actuation HFA aerosol inhaler See Rx Instructions .ROUTE .COMPLEX Qty: 18 12RF Dose Instruction: INHALE TWO PUFFS BY MOUTH EVERY 4 HOURS NEEDED Rx Instructions: INHALE TWO PUFFS BY MOUTH EVERY 4 HOURS NEEDED trazodone 50 mg tablet See Rx Instructions .ROUTE .COMPLEX Qty: 135 1RF Dose Instruction: TAKE 1 & 1/2 TABLETS BY MOUTH DAILY AT BEDTIME NEEDED FOR SLEEP Rx Instructions: TAKE 1 & 1/2 TABLETS BY MOUTH DAILY AT BEDTIME NEEDED FOR SLEEP acetaminophen 500 mg Tablet 1,000 mg PO QID Qty: 40 0RF Rx Instructions: Take for 5 days as scheduled then stop and resume your previous as needed regimen cyanocobalamin (vitamin B-12) [Vitamin B-12] 500 mcg Tablet 500 mcg PO DAILY Qty: 30 0RF docusate sodium [Colace] 100 mg Capsule 100 mg PO BID Qty: 60 0RF ferrous sulfate 325 mg (65 mg iron) Tablet 325 mg PO DAILY Qty: 30 0RF folic acid 1 mg Tablet 1 mg PO DAILY Qty: 30 0RF thiamine mononitrate (vit B1) [Vitamin B-1 (mononitrate)] 100 mg Tablet 100 mg PO DAILY Qty: 30 0RF morphine 15 mg tablet 7.5 mg PO Q6H PRNQty: 10 0RF pantoprazole [Protonix] 40 mg tablet,delayed release (DR/EC) 40 mg PO DAILY Qty: 30 0RF hydromorphone [Dilaudid] 2 mg tablet 2 mg PO Q8H PRN (Reason: pain) Qty: 20 0RF polyethylene glycol 3350 [Miralax] 17 gram/dose powder 17 g PO .Nightly Qty: 510 0RF bisacodyl 10 mg suppository 10 mg [place] DAILY PRN (Reason: constipation lobger than 48 hours) Qty: 12 0RF (DME) nebulizers Misc See Rx Instructions .ROUTE .MEDSUPPLY Qty: 1 0RF Rx Instructions: As directed Discharge Instructions Instructions: GI bleed Additional Instructions: Keep your appointment with surgery next week. Call your primary care doctor today to schedule an appointment for within the next 48 hours to followup on your visit here. Return to the emergency department for new or worsening symptoms including if you vomit blood again, feel lightheaded, pass out, have new/different/worse abdominal pain, or if you have any other concerns. Referrals: Paula Barboza NP [Primary Care Provider] - [facility] General Mode of arrival: EMS. Date/Time Provider Initiated Documentation: 04/16/24 04:35. Limitations to Documentation: no limitations. Information obtained by: patient and old records reviewed. HPI Narrative: 53yo F with hx ETOH abuse, recent splenic hematoma and pancreatic surgery cyst drainage, presenting for coffee ground emesis x 3. Seen in this ED on 03/22; ED visit for LUQ abdominal pain with workup suggestive of expanding pseudocyst. Seen in surgery clinic on 03/26; at that time plan for one month followup and anticipated scheduling EGD/colonoscopy for GI bleeding at that followup visit (not scoped at that time due to 'relatively recent ruptured pancreatic pseudocyst'. LUQ pain remains present and unchanged per patient; over the past two days she has had 2-3 episodes of coffee ground emesis. Stool is dark as well over the same period of time. Drank vodka tonight. Otherwise in her usual state of health with no fevers, chills, rash, chest pain, shortness of breath, lightheadedness, or other concerns. Related Data Home Medications ?Medication ?Instructions ?Recorded ?Confirmed clobetasol-emollient 0.05 % 1 applic topical DAILY PRN #60 12/08/16 04/16/24 topical cream grams inhalational spacing device #1 ea 09/28/20 04/16/24 (POCKET CHAMBER spacer) nebulizers #1 ea 03/16/21 04/16/24 albuterol sulfate 2.5 mg/3 mL 2.5 mg (3 mL) inhalation Q4H PRN 01/10/23 04/16/24 (0.083 %) solution for nebulization shortness of breath or wheezing #180 mL hydroxyzine HCl 25 mg tablet 25 mg PO TID PRN anxiety #180 tabs 01/10/23 04/16/24 Hand Held Nebulizer #1 ea 11/27/23 04/16/24 citalopram 40 mg tablet 40 mg PO DAILY #90 tabs 11/27/23 04/16/24 lisinopril 20 mg tablet 20 mg PO DAILY #90 tab-caps 11/27/23 04/16/24 propranolol 20 mg tablet 20 mg PO BID #180 tabs 11/27/23 04/16/24 quetiapine 100 mg tablet See Rx Instructions .Route 11/27/23 04/16/24 .COMPLEX #135 tabs tiotropium bromide 1.25 2 puff inhalation DAILY #4 grams 11/27/23 04/16/24 mcg/actuation mist for inhalation (Spiriva Respimat) albuterol sulfate 90 mcg/actuation See Rx Instructions .Route 01/22/24 04/16/24 aerosol inhaler (Ventolin HFA) .COMPLEX #18 grams doxepin 25 mg capsule See Rx Instructions .Route 01/22/24 04/16/24 .COMPLEX #60 caps trazodone 50 mg tablet See Rx Instructions .Route 01/22/24 04/16/24 .COMPLEX #135 tabs acetaminophen 500 mg tablet 1,000 mg (2 x 500 mg) PO QID #40 03/13/24 04/16/24 tabs cyanocobalamin (vitamin B-12) 500 500 mcg PO DAILY #30 tabs 03/13/24 04/16/24 mcg tablet (Vitamin B-12) docusate sodium 100 mg capsule 100 mg PO BID #60 caps 03/13/24 04/16/24 (Colace) ferrous sulfate 325 mg (65 mg 325 mg PO DAILY #30 tabs 03/13/24 04/16/24 iron) tablet folic acid 1 mg tablet 1 mg PO DAILY #30 tabs 03/13/24 04/16/24 morphine 15 mg immediate release 7.5 mg (1/2 x 15 mg) PO Q6H PRN 03/13/24 04/16/24 tablet #10 tabs pantoprazole 40 mg tablet,delayed 40 mg PO DAILY #30 tabs 03/13/24 04/16/24 release (Protonix) thiamine mononitrate (vit B1) 100 100 mg PO DAILY #30 tabs 03/13/24 04/16/24 mg tablet (Vitamin B-1 (mononitrate)) bisacodyl 10 mg rectal suppository 10 mg [place] DAILY PRN constipation 03/22/24 04/16/24 lobger than 48 hours #12 ea hydromorphone 2 mg tablet 2 mg PO Q8H PRN pain #20 tabs 03/22/24 04/16/24 (Dilaudid) polyethylene glycol 3350 17 17 g PO .Nightly #510 grams 03/22/24 04/16/24 gram/dose oral powder (Miralax) Previous Rx's ?Medication ?Instructions ?Recorded inhalational spacing device #1 ea 09/28/20 (POCKET CHAMBER spacer) nebulizers #1 ea 03/16/21 albuterol sulfate 2.5 mg/3 mL 2.5 mg (3 mL) inhalation Q4H PRN 01/10/23 (0.083 %) solution for nebulization shortness of breath or wheezing #180 mL hydroxyzine HCl 25 mg tablet 25 mg PO TID PRN anxiety #180 tabs 01/10/23 Hand Held Nebulizer #1 ea 11/27/23 citalopram 40 mg tablet 40 mg PO DAILY #90 tabs 11/27/23 lisinopril 20 mg tablet 20 mg PO DAILY #90 tab-caps 11/27/23 propranolol 20 mg tablet 20 mg PO BID #180 tabs 11/27/23 quetiapine 100 mg tablet See Rx Instructions .Route 11/27/23 .COMPLEX #135 tabs tiotropium bromide 1.25 2 puff inhalation DAILY #4 grams 11/27/23 mcg/actuation mist for inhalation (Spiriva Respimat) albuterol sulfate 90 mcg/actuation See Rx Instructions .Route 01/22/24 aerosol inhaler (Ventolin HFA) .COMPLEX #18 grams doxepin 25 mg capsule See Rx Instructions .Route 01/22/24 .COMPLEX #60 caps trazodone 50 mg tablet See Rx Instructions .Route 01/22/24 .COMPLEX #135 tabs acetaminophen 500 mg tablet 1,000 mg (2 x 500 mg) PO QID #40 03/13/24 tabs cyanocobalamin (vitamin B-12) 500 500 mcg PO DAILY #30 tabs 03/13/24 mcg tablet (Vitamin B-12) docusate sodium 100 mg capsule 100 mg PO BID #60 caps 03/13/24 (Colace) ferrous sulfate 325 mg (65 mg 325 mg PO DAILY #30 tabs 03/13/24 iron) tablet folic acid 1 mg tablet 1 mg PO DAILY #30 tabs 03/13/24 morphine 15 mg immediate release 7.5 mg (1/2 x 15 mg) PO Q6H PRN 03/13/24 tablet #10 tabs pantoprazole 40 mg tablet,delayed 40 mg PO DAILY #30 tabs 03/13/24 release (Protonix) thiamine mononitrate (vit B1) 100 100 mg PO DAILY #30 tabs 03/13/24 mg tablet (Vitamin B-1 (mononitrate)) bisacodyl 10 mg rectal suppository 10 mg [place] DAILY PRN constipation 03/22/24 lobger than 48 hours #12 ea hydromorphone 2 mg tablet 2 mg PO Q8H PRN pain #20 tabs 01/31/25 (Dilaudid) polyethylene glycol 3350 17 17 g PO .Nightly #510 grams 03/22/24 gram/dose oral powder (Miralax) Allergies Allergy/AdvReac Type Severity Reaction Status Date / Time hydromorphone (From Dilaudid) Allergy Severe Itching Verified 04/16/24 04:28 oxycodone AdvReac Unknown TERRIBLE Verified 04/16/24 04:28 DREAMS General Stated Complaint: Abd Prob ALISTAIR: 3 Review of Systems Narrative: see HPI Exam Narrative Exam Narrative: General: Alert, non-toxic Head: Normocephalic, atraumatic Neck: Trachea midline, ?Neck supple. ENT: ?MMM.? Cardiac: ?RRR, no murmurs appreciated Resp: No respiratory distress. CTAB. Abd: ?Soft, non-distended, tender to palpation of epigastrium and LUQ with no rebound or guarding. : ?No suprapubic tenderness. Extremities: ?No deformities.? No peripheral edema. Neurologic: GCS 15. ? Moves all extremities freely against gravity Course Vital Signs Vital signs: Vital Signs Temperature 35.9 C L 04/16/24 04:30 Pulse 77 04/16/24 04:30 Respiratory Rate 16 04/16/24 04:30 Blood Pressure 94/61 L 04/16/24 04:30 Pulse Oximetry 97 04/16/24 04:30 Temperature 35.9 C L 04/16/24 04:30 Temperature Source Temporal Artery Scan 04/16/24 04:30 Pulse 76 04/16/24 05:10 Pulse 76 04/16/24 05:10 Respiratory Rate 19 04/16/24 05:10 Blood Pressure 94/61 L 04/16/24 04:30 Blood Pressure Position Supine 04/16/24 04:30 Pulse Oximetry 94 04/16/24 05:10 Oxygen Delivery Method Room Air 04/16/24 04:30 Oxygen Flow Rate 0 04/16/24 04:30 Pain Level 8 04/16/24 04:36 Lab/Test Results Lab/Test Results: Laboratory Tests Range/Units 04/16/24 04:38 WBC (4.4-10.8) 10^3/uL 4.22 L RBC (3.93-5.22) 10^6/uL 4.15 Hgb (11.2-15.7) g/dL 9.8 L Hct (36.0-46.0) % 33.9 L MCV (80-95) fL 82 MCH (27.0-33.0) pg 23.6 L MCHC (32.0-36.0) % 28.9 L RDW (11.7-14.6) % 25.2 H Plt Count (130-400) 10^3/uL 276 MPV (8.0-11.0) fL 9.8 Immature Gran % % 0.2 Neutrophils % % 37.0 Lymphocytes % % 48.3 Monocytes % % 6.6 Eosinophils % % 4.3 Basophils % % 3.6 Nucleated RBC % (0.0-0.3) % 0.0 Absolute Neutrophils (1.2-6.7) 10^3/uL 1.56 Absolute Lymphocytes (1.2-3.4) 10^3/uL 2.04 Absolute Monocytes (0.1-0.8) 10^3/uL 0.28 Absolute Eosinophils (0.0-0.7) 10^3/uL 0.18 Absolute Basophils (0.0-0.2) 10^3/uL 0.15 RBC Morphology See Below Polychromasia Present Hypochromasia 1+ Anisocytosis 1+ PT (9.1-11.1) sec 10.2 INR (0.9-1.1) 1.0 APTT (20.6-30.2) sec 22.5 Sodium (136-145) mmol/L 141 Potassium (3.5-5.1) mmol/L 3.6 Chloride (98-107) mmol/L 104 Carbon Dioxide (21.0-32.0) mmol/L 25.6 Anion Gap (3-11) mmol/L 11.4 H BUN (7-18) mg/dL 14 Creatinine (0.55-1.02) mg/dL 1.3 H Est GFR (CKD-EPI 2020) (mL/min/1.73m2) 48.56 Glucose (74-106) mg/dL 119 H Calcium (8.5-10.1) mg/dL 8.6 Magnesium (1.8-2.4) mg/dL 2.1 Total Bilirubin (0.2-1.0) mg/dL 0.17 L AST (15-37) U/L 19 ALT (14-59) U/L 18 Alkaline Phosphatase (46-116) U/L 109 Total Protein (6.4-8.2) g/dL 8.2 Albumin (3.4-5.0) g/dL 3.6 Lipase (<78) U/L 50 Ethyl Alcohol (<10) mg/dL 439.4 H Medical Decision Making 53yo F with hx ETOH abuse, recent splenic hematoma and pancreatic surgery cyst drainage, presenting for coffee ground emesis x 3. Seen in this ED on 03/22; ED visit for LUQ abdominal pain with workup suggestive of expanding pseudocyst. Seen in surgery clinic on 03/26; at that time plan for one month followup and anticipated scheduling EGD/colonoscopy for GI bleeding at that followup visit (not scoped at that time due to 'relatively recent ruptured pancreatic pseudocyst'. Today LUQ pain remains present; over the past two days she has had 2-3 episodes of coffee ground emesis as well as dark stool. Epigastric and LUQ tenderness on exam with no rebound or guarding. Vital signs reassuring on arrival, adequate MAP, no tachycardia, afebrile. No bright red blood in emesis to suggest brisk upper GI bleed. Is at risk for esophageal varices given heavy ETOH use though does not have a known history of this. Also consider gastritis, PUD, anna edgar tear, other GI bleeding. Given 80mg IV protonix, IV ceftriaxone, zofran, while awaiting results of workup. Labs reviewed as below, CBC reassuring with Hg of 9.8 (most recent prior 7.3. on [facility] record review), CMP with no actionable abnormalities, Mg normal, lipase not suggestive of acute pancreatitis, coags normal, etoh + at 439 (has been 179-484 in the past here). CT abd pevlis independently reviewed; no free air or free fluid on my view, discussed with [facility] reading radiologist and radiology read below with improvement in LUQ fluid collections. Patient subsequently requesting discharge home. Has had no further vomiting here in the ED. HR remains normal and her SBP has been 90's-110's. She has an appointment with Dr. Lemus from surgery in one week to discuss endoscopy and colonoscopy. As she is HDS, has had no further vomiting here in the ED, and emesis has been small amounts of coffee ground and not kalyani red bleeding, I feel this existing outpatient followup plan is appropriate. Declined to wait for written discharge instructions; these were mailed to patient. Discharged home; verbal discharge instructions and return precautions were reviewed with patient who verbalized understanding. All questions were answered and she is in full agreement with the plan. Medical Records Medical records reviewed: Yes I reviewed the patient's medical records. Imaging Data Radiologic Study: Imaging: CT Scan Radiologist's impression: IMPRESSION: 1. No evidence of bowel obstruction or acute bowel inflammation. 2. Interval improvement in left upper quadrant fluid collections when compared to the prior examination. 3. 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 Lab Data Lab results reviewed: Yes I reviewed the patient's lab results. Labs: Laboratory Tests Range/Units 04/16/24 04:38 WBC (4.4-10.8) 10^3/uL 4.22 L RBC (3.93-5.22) 10^6/uL 4.15 Hgb (11.2-15.7) g/dL 9.8 L Hct (36.0-46.0) % 33.9 L MCV (80-95) fL 82 MCH (27.0-33.0) pg 23.6 L MCHC (32.0-36.0) % 28.9 L RDW (11.7-14.6) % 25.2 H Plt Count (130-400) 10^3/uL 276 MPV (8.0-11.0) fL 9.8 Immature Gran % % 0.2 Neutrophils % % 37.0 Lymphocytes % % 48.3 Monocytes % % 6.6 Eosinophils % % 4.3 Basophils % % 3.6 Nucleated RBC % (0.0-0.3) % 0.0 Absolute Neutrophils (1.2-6.7) 10^3/uL 1.56 Absolute Lymphocytes (1.2-3.4) 10^3/uL 2.04 Absolute Monocytes (0.1-0.8) 10^3/uL 0.28 Absolute Eosinophils (0.0-0.7) 10^3/uL 0.18 Absolute Basophils (0.0-0.2) 10^3/uL 0.15 RBC Morphology See Below Polychromasia Present Hypochromasia 1+ Anisocytosis 1+ PT (9.1-11.1) sec 10.2 INR (0.9-1.1) 1.0 APTT (20.6-30.2) sec 22.5 Sodium (136-145) mmol/L 141 Potassium (3.5-5.1) mmol/L 3.6 Chloride (98-107) mmol/L 104 Carbon Dioxide (21.0-32.0) mmol/L 25.6 Anion Gap (3-11) mmol/L 11.4 H BUN (7-18) mg/dL 14 Creatinine (0.55-1.02) mg/dL 1.3 H Est GFR (CKD-EPI 2020) (mL/min/1.73m2) 48.56 Glucose (74-106) mg/dL 119 H Calcium (8.5-10.1) mg/dL 8.6 Magnesium (1.8-2.4) mg/dL 2.1 Total Bilirubin (0.2-1.0) mg/dL 0.17 L AST (15-37) U/L 19 ALT (14-59) U/L 18 Alkaline Phosphatase (46-116) U/L 109 Total Protein (6.4-8.2) g/dL 8.2 Albumin (3.4-5.0) g/dL 3.6 Lipase (<78) U/L 50 Ethyl Alcohol (<10) mg/dL 439.4 H ABO/Rh A Positive Antibody Screen NEGATIVE Quality:SDOH Health Related Social Needs: Health related social needs housing instability, housed, with risk of homelessness (Z59.811), food insecurity (Z59.41), problems related to housing/economic circumstances (Z59.89), problems finding work (Z56.9) [facility] All Active Problems (Updated 04/16/24 @ 07:34 by Zara Macias MD) Chronic upper gastrointestinal bleeding (Acute) Abdominal pain, LUQ (Acute) Constipation due to opioid therapy (Acute) Alcohol intoxication in active alcoholic with complication (Acute) Cyst and pseudocyst of pancreas (Acute) COPD (chronic obstructive pulmonary disease) (Chronic) Alcohol use disorder (Acute) Anemia (Chronic) Left axillary swelling (Acute ~07/2022) 07/21/22 Gen Surgery Alcohol abuse (Chronic) Heavy menses (Acute) Encounter for screening colonoscopy (Acute) Anemia (Chronic) Anxiety (Chronic) DUB (dysfunctional uterine bleeding) (Acute) Depression (Chronic 04/03/15) Sertaline in the past with good relief of sx but then developed intolerable adverse rxns (nausea, flushing) Started on venlafaxine 03/2015 PHQ9 score = 9, indicating mild depression 03/2015 Chronic pain (Acute 02/20/09) chronic tramadol rx, back pain, sciatica despite LS surg 2009. Impaired fasting blood sugar (Acute 08/01/05) Obesity, unspecified (Acute 05/31/11) Atypical squamous cells of undetermined significance (ASC-US) on cervical Pap smear (Acute 08/05/09) ASCUS 08/05/09; 05/31/2011 Spinal stenosis of lumbar region (Acute 01/11/10) LS spine surg; Mitzy Hughes, Dr Cortes Tobacco dependence (Acute 08/01/05) Medical History (Updated 04/16/24 @ 07:34 by Zara Macias MD) Intra abdominal hemorrhage Perisplenic hematoma HTN (hypertension), benign Tobacco use disorder Spinal stenosis Lumbar region Surgical History Back surgery L5-S1 decompression 2009 Family History Mother , lung cancer at age 50. No problems noted. Father , MVA No problems noted. Other Lung cancer Social History Smoking/Tobacco Use Status: Current every day Tobacco Type: cigarettes Smoking risk assessment performed?: Yes Alcohol Intake: current Alcohol Intake frequency: 3 or more drinks per day Alcohol type: beer and hard liquor Drug use: Never Substance use type: does not use Housing: other Do you feel safe at home: Yes Do you feel safe in your relationship?: Yes
--- NOTE | 2024-04-16 06:36 | DI.VRAD_ITS ---
Addendum created by Ericka Wellington MD on 04/16/2024 7:43:31 AM EST: THIS REPORT CONTAINS FINDINGS THAT MAY BE CRITICAL TO PATIENT CARE. The findings were verbally communicated via telephone conference with JAVAN CAMARILLO at 6:13 AM EST on 04/16/2024. The findings were acknowledged and understood. Initial report created on 04/16/2024 6:35:47 AM EST: PROCEDURE INFORMATION: Exam: CT Abdomen And Pelvis With Contrast Exam date and time: 04/16/2024 5:04 AM Age: 53 years old Clinical indication: Abdominal pain; Localized; Left upper quadrant (luq); N/v, hemeatemesis TECHNIQUE: Imaging protocol: Computed tomography of the abdomen and pelvis with contrast. Radiation optimization: All CT scans at this facility use at least one of these dose optimization techniques: automated exposure control; mA and/or kV adjustment per patient size (includes targeted exams where dose is matched to clinical indication); or iterative reconstruction. Contrast material: OMNIPAQUE 350; Contrast volume: 75 ml; Contrast route: INTRAVENOUS (IV); COMPARISON: CT ABDOMEN PELVIS W 03/22/2024 1:39 AM FINDINGS: Liver: Unremarkable liver. No mass identified. Gallbladder and biliary ducts: The gallbladder is unremarkable. No calcified stones. No ductal dilation. Pancreas: No pancreatic lesion seen. Spleen: There is redemonstration of a lobulated appearance of the spleen consistent with prior injury. There is a residual hypodense fluid collection seen in the left upper quadrant, which is significantly decreased when compared to the prior study. The largest region measures approximately 2.5 x 1.0 cm (image 11, series 9), previously 6.3 x 2.9 cm. Another small collection seen laterally has completely resolved. Metallic linear material noted in the splenic fossa, likely from prior embolization. Adrenal glands: The adrenal glands are unremarkable. No defined mass. Kidneys and ureters: The kidneys are unremarkable. No hydronephrosis. Stomach and bowel: No evidence of bowel obstruction or acute bowel inflammation. No ductal dilation. Appendix: No evidence of appendicitis. Intraperitoneal space: No free air. No significant fluid collection. Vasculature: No abdominal aortic aneurysm. Lymph nodes: No enlarged lymph nodes. Urinary bladder: Unremarkable urinary bladder. Reproductive: Fibroids again noted in the uterus. 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 Soft tissues: No significant subcutaneous soft tissue abnormality.. IMPRESSION: 1. No evidence of bowel obstruction or acute bowel inflammation. 2. Interval improvement in left upper quadrant fluid collections when compared to the prior examination. 3. 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 Dictated and Authenticated by: Ericka Wellington MD. Orderin Gilberto Zuñiga MD
--- NOTE | 2024-04-16 06:47 | NUR.NOTE ---
Pt called family member for a ride home, was not willing to wait for results, managed to get pt to stay until CT read was completed, pt did not wait for paperwork and refused discharge vitals, KWAKU
== END 2024-04-16 06:50 | disposition home or self-care (01) ==
PROVIDERS: Emergency Provider Student in an Organized Health Care Education/Training Program; PCP Nurse Practitioner
DX: K92.2 Gastrointestinal hemorrhage, unspecified (principal); Z59.811 Housing instability, housed, with risk of homelessness; Z59.41 Food insecurity; Z59.89 Other problems related to housing and economic circumstances; Z59.6 Low income
CPT/HCPCS: 80053; 83690; 86850; 86900; 86901; 96365; 96375; 99285; 74177; 80320; 83735; 85025; 85610; 85730; J0696; J2405; J2470; J3490

== ENCOUNTER 2024-04-16 16:53 | Emergency (ER) | payer MEDICAID, SELFPAY ==
[2024-04-16] VITALS (18 sets, daily range): BP systolic 65–103; BP diastolic 37–68; PULSE 81–99; RESP 11–20; TEMP 36.9; O2SAT 86–96
--- NOTE | 2024-04-16 17:00 | RT.EKG_ITS ---
APPROVED REPORT Exam: Resting ECG Reason for Exam: Chest pain Patient Location: E HR:84 bpm ECG Measurements Heart Rate 84 AXIS MD 168 P 78 QRSd 97 QRS 80 QT 390 T 71 QTc 461 Conclusion Sinus rhythm...normal P axis, V-rate 60- 99 Anteroseptal infarct, age indeterminate...Q >35mS, T neg, V1-V2
--- NOTE | 2024-04-16 17:07 | ED.GENADUL_ITS ---
Discharge Plan Disposition Patient Disposition: Home Condition: Improving Discharge Details Clinical Impression: Alcoholic gastritis without bleeding, Vomiting, Acute dehydration, Alcohol intoxication, Hypovolemia Primary Care Provider: Paula Barboza ED Provider: Jay Jay Summers Meds and New Rx's Prescriptions: Continued lisinopril 20 mg tablet 20 mg PO DAILY Qty: 90 3RF citalopram 40 mg tablet 40 mg PO DAILY Qty: 90 3RF propranolol 20 mg tablet 20 mg PO BID Qty: 180 1RF Spiriva Respimat 1.25 mcg/actuation mist 2 puff inhalation DAILY Qty: 4 12RF quetiapine 100 mg tablet See Rx Instructions .ROUTE .COMPLEX Qty: 135 0RF Dose Instruction: TAKE 1 & 1/2 TABLETS BY MOUTH AT BEDTIME DAILY Rx Instructions: TAKE 1 & 1/2 TABLETS BY MOUTH AT BEDTIME DAILY (DME) Hand Held Nebulizer See Rx Instructions .Route .MEDSUPPLY Qty: 1 0RF Rx Instructions: As directed albuterol sulfate 2.5 mg /3 mL (0.083 %) solution for nebulization 2.5 mg inhalation Q4H PRN (Reason: shortness of breath or wheezing) Qty: 180 3RF hydroxyzine HCl 25 mg tablet 25 mg PO TID PRN (Reason: anxiety) Qty: 180 1RF clobetasol-emollient 15 GM cream 1 applic Topical DAILY PRNQty: 60 Rx Instructions: Apply to hands PRN (DME) POCKET CHAMBER Spacer See Rx Instructions .ROUTE .MEDSUPPLY Qty: 1 0RF Rx Instructions: As directed doxepin 25 mg capsule See Rx Instructions .ROUTE .COMPLEX Qty: 60 5RF Dose Instruction: TAKE ONE CAPSULE BY MOUTH TWICE A DAY Rx Instructions: TAKE ONE CAPSULE BY MOUTH TWICE A DAY albuterol sulfate [Ventolin HFA] 90 mcg/actuation HFA aerosol inhaler See Rx Instructions .ROUTE .COMPLEX Qty: 18 12RF Dose Instruction: INHALE TWO PUFFS BY MOUTH EVERY 4 HOURS NEEDED Rx Instructions: INHALE TWO PUFFS BY MOUTH EVERY 4 HOURS NEEDED trazodone 50 mg tablet See Rx Instructions .ROUTE .COMPLEX Qty: 135 1RF Dose Instruction: TAKE 1 & 1/2 TABLETS BY MOUTH DAILY AT BEDTIME NEEDED FOR SLEEP Rx Instructions: TAKE 1 & 1/2 TABLETS BY MOUTH DAILY AT BEDTIME NEEDED FOR SLEEP cyanocobalamin (vitamin B-12) [Vitamin B-12] 500 mcg Tablet 500 mcg PO DAILY Qty: 30 0RF docusate sodium [Colace] 100 mg Capsule 100 mg PO BID Qty: 60 0RF ferrous sulfate 325 mg (65 mg iron) Tablet 325 mg PO DAILY Qty: 30 0RF folic acid 1 mg Tablet 1 mg PO DAILY Qty: 30 0RF thiamine mononitrate (vit B1) [Vitamin B-1 (mononitrate)] 100 mg Tablet 100 mg PO DAILY Qty: 30 0RF morphine 15 mg tablet 7.5 mg PO Q6H PRNQty: 10 0RF pantoprazole [Protonix] 40 mg tablet,delayed release (DR/EC) 40 mg PO DAILY Qty: 30 0RF hydromorphone [Dilaudid] 2 mg tablet 2 mg PO Q8H PRN (Reason: pain) Qty: 20 0RF polyethylene glycol 3350 [Miralax] 17 gram/dose powder 17 g PO .Nightly Qty: 510 0RF bisacodyl 10 mg suppository 10 mg OK DAILY PRN (Reason: constipation lobger than 48 hours) Qty: 12 0RF (DME) nebulizers Misc See Rx Instructions .ROUTE .MEDSUPPLY Qty: 1 0RF Rx Instructions: As directed Discontinued acetaminophen 500 mg Tablet 1,000 mg PO QID Qty: 40 0RF Rx Instructions: Take for 5 days as scheduled then stop and resume your previous as needed regimen Discharge Instructions Instructions: Dehydration, Adult (DC), Gastritis (DC), Alcohol Use Disorder (DC), Alcohol Use Disorder ED, Gastritis ED, Nausea and Vomiting, Adult ED Discharge Data Discharge Physician: Jay Jay Summers [facility] General Date/Time Provider Initiated Documentation: 04/16/24 17:07 . HPI Narrative: Patient was here earlier today and left AMA who comes in complaining of left upper quadrant abdominal pain coffee-ground emesis also black tarry stool as she did earlier this morning states that she went home and she drank half a bottle of vodka and states that now she is having pain which she rates about a 10/10 states that now she is willing to stay here in the emergency department. Denies any chest pain decided denies any dizziness. Related Data Home Medications ?Medication ?Instructions ?Recorded ?Confirmed clobetasol-emollient 0.05 % 1 applic topical DAILY PRN #60 12/08/16 04/16/24 topical cream grams inhalational spacing device #1 ea 09/28/20 04/16/24 (POCKET CHAMBER spacer) nebulizers #1 ea 03/16/21 04/16/24 albuterol sulfate 2.5 mg/3 mL 2.5 mg (3 mL) inhalation Q4H PRN 01/10/23 04/16/24 (0.083 %) solution for nebulization shortness of breath or wheezing #180 mL hydroxyzine HCl 25 mg tablet 25 mg PO TID PRN anxiety #180 tabs 01/10/23 04/16/24 Hand Held Nebulizer #1 ea 11/27/23 04/16/24 citalopram 40 mg tablet 40 mg PO DAILY #90 tabs 11/27/23 04/16/24 lisinopril 20 mg tablet 20 mg PO DAILY #90 tab-caps 11/27/23 04/16/24 propranolol 20 mg tablet 20 mg PO BID #180 tabs 11/27/23 04/16/24 quetiapine 100 mg tablet See Rx Instructions .Route 11/27/23 04/16/24 .COMPLEX #135 tabs tiotropium bromide 1.25 2 puff inhalation DAILY #4 grams 11/27/23 04/16/24 mcg/actuation mist for inhalation (Spiriva Respimat) albuterol sulfate 90 mcg/actuation See Rx Instructions .Route 01/22/24 04/16/24 aerosol inhaler (Ventolin HFA) .COMPLEX #18 grams doxepin 25 mg capsule See Rx Instructions .Route 01/22/24 04/16/24 .COMPLEX #60 caps trazodone 50 mg tablet See Rx Instructions .Route 01/22/24 04/16/24 .COMPLEX #135 tabs cyanocobalamin (vitamin B-12) 500 500 mcg PO DAILY #30 tabs 03/13/24 04/16/24 mcg tablet (Vitamin B-12) docusate sodium 100 mg capsule 100 mg PO BID #60 caps 03/13/24 04/16/24 (Colace) ferrous sulfate 325 mg (65 mg 325 mg PO DAILY #30 tabs 03/13/24 04/16/24 iron) tablet folic acid 1 mg tablet 1 mg PO DAILY #30 tabs 03/13/24 04/16/24 morphine 15 mg immediate release 7.5 mg (1/2 x 15 mg) PO Q6H PRN 03/13/24 04/16/24 tablet #10 tabs pantoprazole 40 mg tablet,delayed 40 mg PO DAILY #30 tabs 03/13/24 04/16/24 release (Protonix) thiamine mononitrate (vit B1) 100 100 mg PO DAILY #30 tabs 03/13/24 04/16/24 mg tablet (Vitamin B-1 (mononitrate)) bisacodyl 10 mg rectal suppository 10 mg OK DAILY PRN constipation 03/22/24 04/16/24 lobger than 48 hours #12 ea hydromorphone 2 mg tablet 2 mg PO Q8H PRN pain #20 tabs 03/22/24 04/16/24 (Dilaudid) polyethylene glycol 3350 17 17 g PO .Nightly #510 grams 03/22/24 04/16/24 gram/dose oral powder (Miralax) Previous Rx's ?Medication ?Instructions ?Recorded inhalational spacing device #1 ea 09/28/20 (POCKET CHAMBER spacer) nebulizers #1 ea 03/16/21 albuterol sulfate 2.5 mg/3 mL 2.5 mg (3 mL) inhalation Q4H PRN 01/10/23 (0.083 %) solution for nebulization shortness of breath or wheezing #180 mL hydroxyzine HCl 25 mg tablet 25 mg PO TID PRN anxiety #180 tabs 01/10/23 Hand Held Nebulizer #1 ea 11/27/23 citalopram 40 mg tablet 40 mg PO DAILY #90 tabs 11/27/23 lisinopril 20 mg tablet 20 mg PO DAILY #90 tab-caps 11/27/23 propranolol 20 mg tablet 20 mg PO BID #180 tabs 11/27/23 quetiapine 100 mg tablet See Rx Instructions .Route 11/27/23 .COMPLEX #135 tabs tiotropium bromide 1.25 2 puff inhalation DAILY #4 grams 11/27/23 mcg/actuation mist for inhalation (Spiriva Respimat) albuterol sulfate 90 mcg/actuation See Rx Instructions .Route 01/22/24 aerosol inhaler (Ventolin HFA) .COMPLEX #18 grams doxepin 25 mg capsule See Rx Instructions .Route 01/22/24 .COMPLEX #60 caps trazodone 50 mg tablet See Rx Instructions .Route 01/22/24 .COMPLEX #135 tabs cyanocobalamin (vitamin B-12) 500 500 mcg PO DAILY #30 tabs 03/13/24 mcg tablet (Vitamin B-12) docusate sodium 100 mg capsule 100 mg PO BID #60 caps 03/13/24 (Colace) ferrous sulfate 325 mg (65 mg 325 mg PO DAILY #30 tabs 03/13/24 iron) tablet folic acid 1 mg tablet 1 mg PO DAILY #30 tabs 03/13/24 morphine 15 mg immediate release 7.5 mg (1/2 x 15 mg) PO Q6H PRN 03/13/24 tablet #10 tabs pantoprazole 40 mg tablet,delayed 40 mg PO DAILY #30 tabs 03/13/24 release (Protonix) thiamine mononitrate (vit B1) 100 100 mg PO DAILY #30 tabs 03/13/24 mg tablet (Vitamin B-1 (mononitrate)) bisacodyl 10 mg rectal suppository 10 mg OK DAILY PRN constipation 03/22/24 lobger than 48 hours #12 ea hydromorphone 2 mg tablet 2 mg PO Q8H PRN pain #20 tabs 03/22/24 (Dilaudid) polyethylene glycol 3350 17 17 g PO .Nightly #510 grams 03/22/24 gram/dose oral powder (Miralax) Allergies Allergy/AdvReac Type Severity Reaction Status Date / Time hydromorphone (From Dilaudid) Allergy Severe Itching Verified 04/16/24 17:49 oxycodone AdvReac Unknown TERRIBLE Verified 04/16/24 17:49 DREAMS General Stated Complaint: Abd Prob ALISTAIR: 3 Review of Systems Narrative: Review of Systems: Constitutional: No fevers, chills, sweats Eye: No recent visual problems ENT: No ear pain, nasal congestion, sore throat Respiratory: No shortness of breath, cough Cardiovascular: No Chest pain, palpitations, syncope Gastrointestinal: No diarrhea Genitourinary: No hematuria Dmitry/Lymph: Negative for bruising tendency, swollen lymph glands Endocrine: Negative for excessive thirst, excessive hunger Musculoskeletal: No back pain, neck pain, joint pain, muscle pain, decreased range of motion Integumentary: No rash, pruritus, abrasions Neurologic: Alert & oriented X 4 Psychiatric: No anxiety, depression Exam Narrative Exam Narrative: Exam; vitals signs as reported above normal Constitutional; In no acute distress, afebrile General: cooperative, healthy appearing, comfortable and no acute distress HEENT: Head: normal to inspection, no palpable skull fracture and normocephalic atraumatic Eyes: : appearance normal, both eyes and all related structures EOM intact bilaterally Pupils: PERRL : conjunctiva normal Direct ophthalmoscopy: normal light reflex, normal conjunctiva, normal visual acuity Ears: Normal TM, normal external canal Nose: normal no rhinorreha Neck no JVD, supple non tender Neck: normal visual inspection, full ROM and no lymphadenopathy Chest: normal inspection of the chest Respiratory : normal respiratory effort and able to speak in complete sentences no wheezing no rales Cardio Rate: regular rate, rhythm: regular rhythm normal heart sounds S1 and S2 no murmurs, gallops, or rubs GI : normal to inspection, normal bowel sounds, soft, non tender, non distended, no organomegaly Back/Spine/ no CVA tenderness Thoracic/Lumbar Spine: no tenderness or deformities Skin no rashes or lesions Neuro: patient alert oriented x 4 and no meningeal signs, Cranial Nerves: CN's II-XI intact bilaterally, Cognition: normal cognition, Speech: speech normal, Gait: normal gait, Depp tendon reflexes normal 2+ muscle strength 5/5 bilaterally Extremities, no edema, full range of motion, normal strength Course Patient presented to the emergency department complaining of vomiting and left upper quadrant abdominal pain also complaining of diarrhea. She states that she went home this morning and started drinking heavily. Initially her blood pressure was low and improved after IV hydration a E-FAST exam and a beach protocol exam were done which shows no intra-abdominal bleed her IVC was collapsible more than 50% which improved with hydration. Labs show a high alcohol level and a CT scan of the abdomen pelvis was read by the radiology probable ileus in the left upper quadrant but it resolved spontaneously here in the emergency department. She stopped vomiting and states that she is back to her baseline and wants to go home with her son-in-law. EKG is within normal limits bedside echocardiography also shows normal echocardiogram. Most likely patient had gastritis due to her heavy drinking she does not have pancreatitis and she is heme-negative from below so she does not have a GI bleed at this time. Reevaluation(s) Time: 20:28 Reevaluation: Reevaluation at this time shows a blood pressure 103/68 she is not orthostatic she is improved and states that she wants to be discharged denies any abdominal pain and her abdominal exam is benign Vital Signs Vital signs: Vital Signs Temperature 36.9 C 04/16/24 16:53 Pulse 98 H 04/16/24 16:53 Respiratory Rate 16 04/16/24 16:53 Blood Pressure 79/51 L 04/16/24 16:53 Pulse Oximetry 96 04/16/24 16:53 Temperature 36.9 C 04/16/24 17:01 Pulse 98 H 04/16/24 17:01 Respiratory Rate 16 04/16/24 17:01 Blood Pressure 79/51 L 04/16/24 17:01 Pulse Oximetry 96 04/16/24 17:01 Pain Level 10 04/16/24 17:01 Medical Decision Making MDM: Summary: Patient presented to the emergency department complaining of vomiting and left upper quadrant abdominal pain also complaining of diarrhea. She states that she went home this morning and started drinking heavily. Initially her blood pressure was low and improved after IV hydration a E-FAST exam and a beach protocol exam were done which shows no intra-abdominal bleed her IVC was collapsible more than 50% which improved with hydration. Labs show a high alcohol level and a CT scan of the abdomen pelvis was read by the radiology probable ileus in the left upper quadrant but it resolved spontaneously here in the emergency department. She stopped vomiting and states that she is back to her baseline and wants to go home with her son-in-law. EKG is within normal l imits bedside echocardiography also shows normal echocardiogram. Most likely patient had gastritis due to her heavy drinking she does not have pancreatitis and she is heme-negative from below so she does not have a GI bleed at this time. As the patient to stay in the hospital and she has refused to signed the AGAINST MEDICAL ADVICE sheet she is will be discharged for she feels better and has improved Data Review Analysis All the data on this patient was reviewed by me including laboratory and imaging studies as well as bedside studies performed by me Independent review of Studies Imaging CT scan reported above Lab: Labs and comparison that was this morning show mild elevation of the creatinine which is compatible with her dehydration and hypovolemia to her vomiting Risk Stratification: Patient most likely with alcoholic gastritis but no GI bleed will be discharged home she is to continue her Protonix and I advised her to please not to drink or seek help to stop drinking Differential Diagnosis: 1. Hypovolemic shock 2. Dehydration 3. Alcoholic gastritis 4. GI bleed 5. Acute pancreatitis Consultants: Shared disposition: Patient is at this position and understands how critical is for not drinking and jeopardizing her health and the fact that she is leaving and not staying in the hospital admitted Impression: Medical Records Medical records reviewed: Yes I reviewed the patient's medical records. Imaging Data Radiologic Study: Attestation: I personally reviewed and interpreted this imaging study as follows: Imaging: CT Scan Radiologist's impression: Patient Name: Pratima Rolle Unit #: [id number] Loc: ER Ordering Provider: Jay Jay Summers M.D. Status: REG ER Primary Care Provider: Paula Barboza NP Date of Exam: 04/16/24 Sex: F : 1970 Age: 53 Exam(s) a CT:CT abdomen & pelvis wo Exam(s) CT ABDOMEN PELVIS WO EXAM: CT ABDOMEN PELVIS WO CLINICAL HISTORY: Left upper quadrant abdominal. TECHNIQUE: Imaging Protocol: Axial computed tomography images with coronal and sagittal reformatted images were created and reviewed. COMPARISON: CT CT CHEST/ABD/PEL W from 08/06/[address] ABDOMEN PELVIS W from 03/22/[address] ABDOMEN PELVIS W from 04/16/2024 FINDINGS: Lack of IV contrast does limit evaluation of the abdominal organs. ABDOMEN: Lung Bases: Normal where visualized. Liver: Normal density. No measurable mass. Gallbladder and biliary tract: There is some high density material in the dependent portion the gallbladder which may reflect the vicarious excretion of contrast from earlier in the day. There is no biliary ductal dilatation. Pancreas: Normal density, no abnormal calcifications or inflammatory process. There has been no change in size of the fluid collection seen adjacent to the ta il of the pancreas and adjacent to the spleen since the earlier examination. Spleen: Normal. Kidneys: There is persistent enhancement of the kidneys and contrast excretion is seen in the ureters. There is contrast seen in the urinary bladder. There is no dilatation of the collecting system to suggest obstruction.No radiodense stones or obstructive uropathy. No masses seen. Adrenal glands: There is stable nodularity of the left adrenal gland. The right adrenal gland is unremarkable. Lymph nodes: Within normal limits. Abdominal Aorta: Abdominal portion non-dilated. Atherosclerotic calcification is present. PELVIS: Bladder:Symmetric distention, no gross wall thickening. Bowel: There is no bowel wall thickening. There is no evidence of pneumatosis. No portal venous gas is seen. There is now a dilated loop of bowel in the left abdomen. The bowel is otherwise unremarkable. Appendix is unremarkable. Peritoneal cavity: No ascites, collection or mesenteric inflammatory response. No free air. Reproductive organs: There are uterine fibroids present. Bones: Within normal limits. There are old bilateral rib fractures some of which are nonunited. Soft Tissues: Within normal limits. IMPRESSION: 1. No evidence of hydronephrosis. 2. New dilated loop of small bowel bowel in the left abdomen. This may represent a focal ileus. Obstruction cannot be entirely excluded. There is no evidence of pneumatosis or portal venous gas. Serial KUB is recommended for further evaluation. 3. Old bilateral rib fractures. 4. Stable fluid collection seen in the left upper quadrant. 5. Findings were discussed with Dr. Summers at 6:50 p.m. on 04/16/2024. Lab Data Lab results reviewed: Yes I reviewed the patient's lab results. ECG Data Attestation: I personally reviewed and interpreted this ECG (s) as follows: Prior ECG tracings: available for review Interpretation: Unchanged from previous study Quality:SDOH Health Related Social Needs: Health related social needs housing instability, house d, with risk of homelessness (Z59.811), food insecurity (Z59.41), problems related to housing/economic circumstances (Z59.89), problems finding work (Z56.9) Critical Care Time Critical Care Time Critical Care Time: Yes Total Critical Care Time: 40 Attestation: Patient patient recently with hypovolemia who responded fast with IV fluid hydration. [facility], [facility] All Active Problems (Updated 04/16/24 @ 20:35 by Jay Jay Summers MD) Hypovolemia (Acute) Alcohol intoxication (Acute) Acute dehydration (Acute) Vomiting (Acute) Alcoholic gastritis without bleeding (Acute) Chronic upper gastrointestinal bleeding (Acute) Abdominal pain, LUQ (Acute) Constipation due to opioid therapy (Acute) Alcohol intoxication in active alcoholic with complication (Acute) Cyst and pseudocyst of pancreas (Acute) COPD (chronic obstructive pulmonary disease) (Chronic) Alcohol use disorder (Acute) Anemia (Chronic) Left axillary swelling (Acute ~07/2022) 07/21/22 Gen Surgery Alcohol abuse (Chronic) Heavy menses (Acute) Encounter for screening colonoscopy (Acute) Anemia (Chronic) Anxiety (Chronic) DUB (dysfunctional uterine bleeding) (Acute) Depression (Chronic 04/03/15) Sertaline in the past with good relief of sx but then developed intolerable adverse rxns (nausea, flushing) Started on venlafaxine 03/2015 PHQ9 score = 9, indicating mild depression 03/2015 Chronic pain (Acute 02/20/09) chronic tramadol rx, back pain, sciatica despite LS surg 2009. Impaired fasting blood sugar (Acute 08/01/05) Obesity, unspecified (Acute 05/31/11) Atypical squamous cells of undetermined significance (ASC-US) on cervical Pap smear (Acute 08/05/09) ASCUS 08/05/09; 05/31/2011 Spinal stenosis of lumbar region (Acute 01/11/10) spine surg; [facility], Dr Cortes Tobacco dependence (Acute 08/01/05) Medical History Intra abdominal hemorrhage Perisplenic hematoma HTN (hypertension), benign Tobacco use disorder Spinal stenosis Lumbar region Surgical History Back surgery L5-S1 decompression 2009 Family History Mother , lung cancer at age 50. No problems noted. Father , MVA No problems noted. Other Lung cancer Social History Smoking/Tobacco Use Status: Current every day Tobacco Type: cigarettes Smoking risk assessment performed?: Yes Alcohol Intake: current Alcohol Intake frequency: 3 or more drinks per day Alcohol type: beer and hard liquor Drug use: Never Substance use type: does not use Housing: other Do you feel safe at home: Yes Do you feel safe in your relationship?: Yes PAWSS Have you Been Recently Intoxicated or Drunk Within the Last 30 days?: Yes Have you Ever Experienced Previous Episodes of Alcohol Withdrawal?: No Have you ever Experienced Withdrawal Seizures?: No Have you ever Experienced Delirium Tremens(DT)s?: Yes Have you ever undergone Alcohol Rehabilitation Treatment (i.e, inpt ot outpatient treatment programs)?: No Have you ever Experienced Blackouts?: No Have you ever Combined Alcohol with other Downers within the last 90 days?: Yes Have you ever Combined Alcohol with any other Substance of Abuse during the last 90 days?: No Positive Blood Alcohol level on Presentation? [PCS.BAL]: No Evidence of Increased Autonomic Activity (i.e. HR>120, tremor, sweating, agitation, nausea)?: No Result: 2 POCUS Exam (ED) Efast Exam DATE OF EXAM: 04/16/24 TIME OF EXAM: 17:30 PROVIDER THAT PEFORMED THE STUDY: Jay Jay Summers IS THIS A REPEAT EXAM DURING THIS ENCOUNTER: no REASON FOR EXAM: Abdominal pain and Hypotension VISUALIZED STRUCTURES: Hepatorneal space, Pelvis, Pericardium, Perisplenic space, Pleural space/left and Pleural space/right PERTINENT FINDINGS/IMPRESSION: no apparent abnormalities and other (Spleen is small with some areas of hypodensity) impression: dehydration Limited Transthoracic Echo: Exam complete Limited Abdominal Exam: Exam complete Limited Retroperitoneal Exam: Exam complete ONEONTA Exam DATE OF EXAM: 04/16/24 TIME OF EXAM: 17:35 PROVIDER THAT PERFORMED THE STUDY: Jay Jay Summers IS THIS A REPEAT EXAM DURING THIS ENCOUNTER: No REASON FOR EXAM: Hypotension VISUALIZED STRUCTURES: Aorta, Bladder, Cardiac Four Chambers, Heart, Inferior Vena Cava, Lung/left side, Lung/right side, Maxwell's pouch and Renal artery PERTINENT FINDINGS/IMPRESSION: No apparent abnormalities Echocardiography/Transthoracic Limited Exam: Exam Complete Chest Limited Exam: Exam Complete Abdominal Limited Exam: Exam Complete Retroperitoneal Limited Exam: Exam Complete
[2024-04-16 17:22] LABS: Abs Immature Grans 0.02 10^3/uL (0.0-0.06); Absolute Basophil Count 0.09 10^3/uL (0.0-0.2); Absolute Eosinophil Count 0.28 10^3/uL (0.0-0.7); Absolute Monocyte Count 0.54 10^3/uL (0.1-0.8); Absolute Neutrophil Count 2.93 10^3/uL (1.2-6.7); Basophils % 1.5 %; Eosinophils % 4.8 %; HCT 33.1 % (36.0-46.0); HGB 9.7 g/dL (11.2-15.7); Immature Grans % 0.3 %; Lymphocytes % 34.1 %; MCHC 29.3 % (32.0-36.0); MCV 82 fL (80-95); MPV 9.7 fL (8.0-11.0); Monocytes % 9.2 %; Neutrophils % 50.1 %; Platelet Count 386 10^3/uL (130-400); RBC 4.04 10^6/uL (3.93-5.22); RDW 25.2 % (11.7-14.6); RDW-SD 74.3 fL; WBC 5.86 10^3/uL (4.4-10.8)
[2024-04-16] MEDS: Pantoprazole 40 MG VIAL 80 MG IVP (17:22)
[2024-04-16] MEDS: Ondansetron 4 MG/2 ML VIAL IVP (17:22)
[2024-04-16] MEDS: Normal Saline 1,000 ML 1000 ML IV (17:23)
[2024-04-16] MEDS: MORPHine 4 MG/ML SYR IVP (17:28)
[2024-04-16 17:32] LABS: Prothrombin Time 10.3 sec (9.1-11.1)
[2024-04-16 17:39] LABS: ALT 21 U/L (14-59); AST 18 U/L (15-37); Albumin 3.4 g/dL (3.4-5.0); Alkaline Phosphatase 102 U/L (46-116); Anion Gap 15.2 mmol/L (3-11); BUN 16 mg/dL (7-18); Bilirubin, Total 0.17 mg/dL (0.2-1.0); CO2 22.8 mmol/L (21.0-32.0); Calcium 8.1 mg/dL (8.5-10.1); Chloride 104 mmol/L (98-107); Estimated GFR 28.96 (mL/min/1.73m2); Glucose 135 mg/dL (74-106); Lipase 47 U/L (<78); Magnesium 1.9 mg/dL (1.8-2.4); Potassium 3.8 mmol/L (3.5-5.1); Sodium 142 mmol/L (136-145); Troponin I 26 ng/L (<or=51)
[2024-04-16 17:40] LABS: Anisocytosis 1+
[2024-04-16 17:55] LABS: ETHANOL BLOOD 364.3 mg/dL (<10)
--- NOTE | 2024-04-16 18:24 | DI.CT_ITS ---
Exam(s) CT ABDOMEN PELVIS WO EXAM: CT ABDOMEN PELVIS WO CLINICAL HISTORY: Left upper quadrant abdominal. TECHNIQUE: Imaging Protocol: Axial computed tomography images with coronal and sagittal reformatted images were created and reviewed. COMPARISON: CT CT CHEST/ABD/PEL W from 08/06/[address] ABDOMEN PELVIS W from 03/22/[address] ABDOMEN PELVIS W from 04/16/2024 FINDINGS: Lack of IV contrast does limit evaluation of the abdominal organs. ABDOMEN: Lung Bases: Normal where visualized. Liver: Normal density. No measurable mass. Gallbladder and biliary tract: There is some high density material in the dependent portion the gallb ladder which may reflect the vicarious excretion of contrast from earlier in the day. There is no bi liary ductal dilatation. Pancreas: Normal density, no abnormal calcifications or inflammatory process. There has been no shrestha e in size of the fluid collection seen adjacent to the tail of the pancreas and adjacent to the splee n since the earlier examination. Spleen: Normal. Kidneys: There is persistent enhancement of the kidneys and contrast excretion is seen in the ureters . There is contrast seen in the urinary bladder. There is no dilatation of the collecting system to suggest obstruction.No radiodense stones or obstructive uropathy. No masses seen. Adrenal glands: There is stable nodularity of the left adrenal gland. The right adrenal gland is unr emarkable. Lymph nodes: Within normal limits. Abdominal Aorta: Abdominal portion non-dilated. Atherosclerotic calcification is present. PELVIS: Bladder:Symmetric distention, no gross wall thickening. Bowel: There is no bowel wall thickening. There is no evidence of pneumatosis. No portal venous gas is seen. There is now a dilated loop of bowel in the left abdomen. The bowel is otherwise unremark able. Appendix is unremarkable. Peritoneal cavity: No ascites, collection or mesenteric inflammatory response. No free air. Reproductive organs: There are uterine fibroids present. Bones: Within normal limits. There are old bilateral rib fractures some of which are nonunited. Soft Tissues: Within normal limits. IMPRESSION: 1. No evidence of hydronephrosis. 2. New dilated loop of small bowel bowel in the left abdomen. This may represent a focal ileus. Obs truction cannot be entirely excluded. There is no evidence of pneumatosis or portal venous gas. Ser ial KUB is recommended for further evaluation. 3. Old bilateral rib fractures. 4. Stable fluid collection seen in the left upper quadrant. 5. Findings were discussed with Dr. Summers at 6:50 p.m. on 04/16/2024. RADIATION DOSE DELIVERED: 527.11mGy.cm Total DLP DATA REPOSITORY: All CT scans at this facility are submitted to the National Radiology Data Registry (NRDR) Dose Index Registry (DIR) with the [employer] (ACR). RADIATION OPTIMIZATION: All CT scans at this facility use at least one of these dose optimization te chniques: automated exposure control; mA and/or kV adjustment per patient size (includes targeted exa ms where dose is matched to clinical indication); or iterative reconstruction.
[2024-04-16] MEDS: Normal Saline 1,000 ML 2000 ML IV (18:26)
== END 2024-04-16 20:41 | disposition home or self-care (01) ==
PROVIDERS: Emergency Provider Emergency Medicine Emergency Medical Services; PCP Nurse Practitioner
DX: K29.20 Alcoholic gastritis without bleeding (principal); F10.220 Alcohol dependence with intoxication, uncomplicated; R11.10 Vomiting, unspecified; E86.0 Dehydration; E86.1 Hypovolemia; J44.9 Chronic obstructive pulmonary disease, unspecified; I10 Essential (primary) hypertension; F17.210 Nicotine dependence, cigarettes, uncomplicated; Y90.8 Blood alcohol level of 240 mg/100 ml or more
CPT/HCPCS: 36415; 76604; 76705; 76775; 76857; 80053; 83690; 86850; 86900; 86901; 93005; 93308; 96361; 96374; 96375; 99285; 74176; 80320; 83735; 84484; 85025; 85610; 93010; J2270; J2405; J2470

== ENCOUNTER 2024-04-18 21:56 | Emergency (ER) | payer MEDICAID, SELFPAY ==
[2024-04-18] VITALS (18 sets, daily range): BP systolic 119–162; BP diastolic 76–110; PULSE 98–130; RESP 11–27; TEMP 36.9; O2SAT 83–97
--- NOTE | 2024-04-18 22:00 | RT.EKG_ITS ---
APPROVED REPORT Exam: Resting ECG Reason for Exam: chest/L side pain Patient Location: E HR:107 bpm ECG Measurements Heart Rate 107 AXIS WV 171 P 61 QRSd 97 QRS 60 QT 323 T 31 QTc 432 Conclusion Sinus tachycardia...rate> 99 Low voltage, precordial leads...precordial leads <1.0mV Normal [place] No acute ST changes There are no significant changes compared to prior EKG performed on 04/16/2024 at 17:59.
--- NOTE | 2024-04-18 22:26 | ED.GENADUL_ITS ---
Discharge Plan Disposition Patient Disposition: Home Condition: Good Discharge Details Clinical Impression: Abdominal pain, LUQ, Alcohol intoxication in active alcoholic Primary Care Provider: Paula Barboza ED Provider: Elio Navarrete Brilliant Meds and New Rx's Prescriptions: Continued lisinopril 20 mg tablet 20 mg PO DAILY Qty: 90 3RF citalopram 40 mg tablet 40 mg PO DAILY Qty: 90 3RF propranolol 20 mg tablet 20 mg PO BID Qty: 180 1RF Spiriva Respimat 1.25 mcg/actuation mist 2 puff inhalation DAILY Qty: 4 12RF quetiapine 100 mg tablet See Rx Instructions .ROUTE .COMPLEX Qty: 135 0RF Dose Instruction: TAKE 1 & 1/2 TABLETS BY MOUTH AT BEDTIME DAILY Rx Instructions: TAKE 1 & 1/2 TABLETS BY MOUTH AT BEDTIME DAILY (DME) Hand Held Nebulizer See Rx Instructions .Route .MEDSUPPLY Qty: 1 0RF Rx Instructions: As directed albuterol sulfate 2.5 mg /3 mL (0.083 %) solution for nebulization 2.5 mg inhalation Q4H PRN (Reason: shortness of breath or wheezing) Qty: 180 3RF hydroxyzine HCl 25 mg tablet 25 mg PO TID PRN (Reason: anxiety) Qty: 180 1RF clobetasol-emollient 15 GM cream 1 applic Topical DAILY PRNQty: 60 Rx Instructions: Apply to hands PRN (DME) POCKET CHAMBER Spacer See Rx Instructions .ROUTE .MEDSUPPLY Qty: 1 0RF Rx Instructions: As directed doxepin 25 mg capsule See Rx Instructions .ROUTE .COMPLEX Qty: 60 5RF Dose Instruction: TAKE ONE CAPSULE BY MOUTH TWICE A DAY Rx Instructions: TAKE ONE CAPSULE BY MOUTH TWICE A DAY albuterol sulfate [Ventolin HFA] 90 mcg/actuation HFA aerosol inhaler See Rx Instructions .ROUTE .COMPLEX Qty: 18 12RF Dose Instruction: INHALE TWO PUFFS BY MOUTH EVERY 4 HOURS NEEDED Rx Instructions: INHALE TWO PUFFS BY MOUTH EVERY 4 HOURS NEEDED trazodone 50 mg tablet See Rx Instructions .ROUTE .COMPLEX Qty: 135 1RF Dose Instruction: TAKE 1 & 1/2 TABLETS BY MOUTH DAILY AT BEDTIME NEEDED FOR SLEEP Rx Instructions: TAKE 1 & 1/2 TABLETS BY MOUTH DAILY AT BEDTIME NEEDED FOR SLEEP cyanocobalamin (vitamin B-12) [Vitamin B-12] 500 mcg Tablet 500 mcg PO DAILY Qty: 30 0RF docusate sodium [Colace] 100 mg Capsule 100 mg PO BID Qty: 60 0RF ferrous sulfate 325 mg (65 mg iron) Tablet 325 mg PO DAILY Qty: 30 0RF folic acid 1 mg Tablet 1 mg PO DAILY Qty: 30 0RF thiamine mononitrate (vit B1) [Vitamin B-1 (mononitrate)] 100 mg Tablet 100 mg PO DAILY Qty: 30 0RF pantoprazole [Protonix] 40 mg tablet,delayed release (DR/EC) 40 mg PO DAILY Qty: 30 0RF polyethylene glycol 3350 [Miralax] 17 gram/dose powder 17 g PO .Nightly Qty: 510 0RF bisacodyl 10 mg suppository 10 mg SD DAILY PRN (Reason: constipation lobger than 48 hours) Qty: 12 0RF (DME) nebulizers Misc See Rx Instructions .ROUTE .MEDSUPPLY Qty: 1 0RF Rx Instructions: As directed Discharge Instructions Instructions: Abdominal Pain, Adult ED, Alcohol Use Disorder ED Additional Instructions: You were seen for continued left upper quadrant abdominal pain. Your laboratory studies remained stable. Your pain is likely a combination of previous ruptured pseudocyst and gastritis related to alcohol use. Strongly encouraged to decrease your alcohol consumption. Continue your proton pump inhibitor, pantoprazole. Follow-up with your primary care physician this coming week for recheck. Follow-up with Dr. Lemus to arrange for endoscopies as mentioned in his last office visit note. Return to ED for new or worsening pain, chest pain, shortness of breath, vomiting of blood, other concerns. Referrals: Tonny Lemus MD [ [facility] STAFF PHYSICIAN] - Paula Barboza NP [Primary Care Provider] - [facility] General Mode of arrival: EMS . Date/Time Provider Initiated Documentation: 04/18/24 22:02 . Limitations to Documentation: no limitations . Information obtained by: patient, RN notes reviewed and old records reviewed . HPI Narrative: Patient returns to ED by ambulance with complaint of continued left upper quadrant abdominal pain. Patient has had problems with this since mid February when she was admitted. Most recently she has had 3 ED visits in the last couple of days for same complaint. She is reporting episodes of coffee-ground emesis. She has occasionally noticed bright red blood after bowel movements. She denies any chest pain or shortness of breath. She continues to actively drink and has been drinking this evening. No report of fever or cough. Pain is continued in the same left upper quadrant without radiation. Related Data Home Medications ?Medication ?Instructions ?Recorded ?Confirmed clobetasol-emollient 0.05 % 1 applic topical DAILY PRN #60 12/08/16 04/18/24 topical cream grams inhalational spacing device #1 ea 09/28/20 04/18/24 (POCKET CHAMBER spacer) nebulizers #1 ea 03/16/21 04/18/24 albuterol sulfate 2.5 mg/3 mL 2.5 mg (3 mL) inhalation Q4H PRN 01/10/23 04/18/24 (0.083 %) solution for nebulization shortness of breath or wheezing #180 mL hydroxyzine HCl 25 mg tablet 25 mg PO TID PRN anxiety #180 tabs 01/10/23 04/18/24 Hand Held Nebulizer #1 ea 11/27/23 04/18/24 citalopram 40 mg tablet 40 mg PO DAILY #90 tabs 11/27/23 04/18/24 lisinopril 20 mg tablet 20 mg PO DAILY #90 tab-caps 11/27/23 04/18/24 propranolol 20 mg tablet 20 mg PO BID #180 tabs 11/27/23 04/18/24 quetiapine 100 mg tablet See Rx Instructions .Route 11/27/23 04/18/24 .COMPLEX #135 tabs tiotropium bromide 1.25 2 puff inhalation DAILY #4 grams 11/27/23 04/18/24 mcg/actuation mist for inhalation (Spiriva Respimat) albuterol sulfate 90 mcg/actuation See Rx Instructions .Route 01/22/24 04/18/24 aerosol inhaler (Ventolin HFA) .COMPLEX #18 grams doxepin 25 mg capsule See Rx Instructions .Route 01/22/24 04/18/24 .COMPLEX #60 caps trazodone 50 mg tablet See Rx Instructions .Route 01/22/24 04/18/24 .COMPLEX #135 tabs cyanocobalamin (vitamin B-12) 500 500 mcg PO DAILY #30 tabs 03/13/24 04/18/24 mcg tablet (Vitamin B-12) docusate sodium 100 mg capsule 100 mg PO BID #60 caps 03/13/24 04/18/24 (Colace) ferrous sulfate 325 mg (65 mg 325 mg PO DAILY #30 tabs 03/13/24 04/18/24 iron) tablet folic acid 1 mg tablet 1 mg PO DAILY #30 tabs 03/13/24 04/18/24 pantoprazole 40 mg tablet,delayed 40 mg PO DAILY #30 tabs 03/13/24 04/18/24 release (Protonix) thiamine mononitrate (vit B1) 100 100 mg PO DAILY #30 tabs 03/13/24 04/18/24 mg tablet (Vitamin B-1 (mononitrate)) bisacodyl 10 mg rectal suppository 10 mg SD DAILY PRN constipation 03/22/24 04/18/24 lobger than 48 hours #12 ea polyethylene glycol 3350 17 17 g PO .Nightly #510 grams 03/22/24 04/18/24 gram/dose oral powder (Miralax) Previous Rx's ?Medication ?Instructions ?Recorded inhalational spacing device #1 ea 09/28/20 (POCKET CHAMBER spacer) nebulizers #1 ea 03/16/21 albuterol sulfate 2.5 mg/3 mL 2.5 mg (3 mL) inhalation Q4H PRN 01/10/23 (0.083 %) solution for nebulization shortness of breath or wheezing #180 mL hydroxyzine HCl 25 mg tablet 25 mg PO TID PRN anxiety #180 tabs 01/10/23 Hand Held Nebulizer #1 ea 11/27/23 citalopram 40 mg tablet 40 mg PO DAILY #90 tabs 11/27/23 lisinopril 20 mg tablet 20 mg PO DAILY #90 tab-caps 11/27/23 propranolol 20 mg tablet 20 mg PO BID #180 tabs 11/27/23 quetiapine 100 mg tablet See Rx Instructions .Route 11/27/23 .COMPLEX #135 tabs tiotropium bromide 1.25 2 puff inhalation DAILY #4 grams 11/27/23 mcg/actuation mist for inhalation (Spiriva Respimat) albuterol sulfate 90 mcg/actuation See Rx Instructions .Route 01/22/24 aerosol inhaler (Ventolin HFA) .COMPLEX #18 grams doxepin 25 mg capsule See Rx Instructions .Route 01/22/24 .COMPLEX #60 caps trazodone 50 mg tablet See Rx Instructions .Route 01/22/24 .COMPLEX #135 tabs cyanocobalamin (vitamin B-12) 500 500 mcg PO DAILY #30 tabs 03/13/24 mcg tablet (Vitamin B-12) docusate sodium 100 mg capsule 100 mg PO BID #60 caps 03/13/24 (Colace) ferrous sulfate 325 mg (65 mg 325 mg PO DAILY #30 tabs 03/13/24 iron) tablet folic acid 1 mg tablet 1 mg PO DAILY #30 tabs 03/13/24 pantoprazole 40 mg tablet,delayed 40 mg PO DAILY #30 tabs 03/13/24 release (Protonix) thiamine mononitrate (vit B1) 100 100 mg PO DAILY #30 tabs 03/13/24 mg tablet (Vitamin B-1 (mononitrate)) bisacodyl 10 mg rectal suppository 10 mg SD DAILY PRN constipation 03/22/24 lobger than 48 hours #12 ea polyethylene glycol 3350 17 17 g PO .Nightly #510 grams 03/22/24 gram/dose oral powder (Miralax) Allergies Allergy/AdvReac Type Severity Reaction Status Date / Time hydromorphone (From Dilaudid) Allergy Severe Itching Verified 04/16/24 17:49 oxycodone AdvReac Unknown TERRIBLE Verified 04/16/24 17:49 DREAMS General Stated Complaint: Abd Prob ALISTAIR: 3 Exam Narrative Exam Narrative: Const: WDWN female in NAD. VS per triage. HEENT: NC/AT. Normal facial exam. Neck: Supple. Trachea midline. Lungs: Normal respiratory effort. Lungs with some diffuse wheeze. No increase work of breathing. Cor: RRR without murmur. Good radial pulses. GI: Soft/ND. Somewhat tender LUQ with voluntary guarding only. Neuro: A+O x 3. Normal speech, mentation. Cranial nerves II - XII grossly intact. No gross motor or sensory deficit. Course Vital Signs Vital signs: Vital Signs Temperature 98.4 F 04/18/24 21:58 Pulse 118 H 04/18/24 21:58 Respiratory Rate 18 04/18/24 21:58 Pulse Oximetry 92 04/18/24 21:58 Temperature 98.4 F 04/18/24 21:58 Temperature Source Skin 04/18/24 21:58 Pulse 109 H 04/18/24 22:10 Pulse 109 H 04/18/24 22:10 Respiratory Rate 23 04/18/24 22:10 Blood Pressure 148/90 H 04/18/24 22:04 Blood Pressure Mean 111 04/18/24 22:04 Pulse Oximetry 91 L 04/18/24 22:18 Oxygen Delivery Method Nasal Cannula 04/18/24 22:18 Oxygen Flow Rate 2 04/18/24 22:18 Lab/Test Results Lab/Test Results: Laboratory Tests Range/Units 04/18/24 22:19 WBC Cancelled RBC Cancelled Hgb Cancelled Hct Cancelled MCV Cancelled MCH Cancelled MCHC Cancelled RDW Cancelled Plt Count Cancelled MPV Cancelled Immature Gran % Cancelled Neutrophils % Cancelled Band Neutrophils % Cancelled Lymphocytes % Cancelled Atypical Lymphs % Cancelled Monocytes % Cancelled Eosinophils % Cancelled Basophils % Cancelled Metamyelocytes % Cancelled Myelocytes % Cancelled Promyelocytes % Cancelled Other Cells % Cancelled Nucleated RBC % Cancelled Absolute Neutrophils Cancelled Absolute Lymphocytes Cancelled Absolute Monocytes Cancelled Absolute Eosinophils Cancelled Absolute Basophils Cancelled RBC Morphology Cancelled Polychromasia Cancelled Hypochromasia Cancelled Poikilocytosis Cancelled Basophilic Stippling Cancelled Anisocytosis Cancelled Microcytosis Cancelled Macrocytosis Cancelled Spherocytes Cancelled Tear Drop Cells Cancelled Ovalocytes Cancelled Stomatocytes Cancelled [place] Bodies Cancelled [place] Cells/Echinocytes Cancelled Acanthocytes (Spur) Cancelled Schistocytes Cancelled ESR Cancelled C-Reactive Protein Cancelled Medical Decision Making Patient presents to ED by ambulance with continued complaint of left upper danay drant pain and coffee-ground emesis. Patient has been here twice on the . She had CT scans done at both visits. There were no significant acute findings other than possible left upper quadrant ileus on her second CT. Patient has been drinking once again. She reports that the pain is no different than what it has been on and off since February when she was admitted here. At that time pain and CT findings seem to be most consistent with a rupture of a pancreatic pseudocyst. There is also very likely alcohol gastritis going on. Hemoccult done on her second visit on the was negative. She has voluntary guarding in the left upper quadrant but with distraction seems minimally tender if at all. She does have some wheezing and has history of COPD. She is given a DuoNeb. Her EKG is sinus tachycardia in the low 100s with no acute ST changes and unchanged from previous. I will plan to recheck laboratory studies but will defer imaging. Will treat with IV famotidine and IV acetaminophen. Patient requesting Dilaudid which I will decline given her significant alcohol use disorder and chronic/intermittent left upper quadrant pain. Patient's white count remains normal. Her hemoglobin is stable in the 9 range. Electrolytes are fine. Liver function and lipase are normal. Alcohol level quite elevated at 375 yet she has normal speech and mentation. Given her stable laboratory studies, unchanged complaint with [address] scans on the I do not feel further imaging or workup is necessary. Discussed with patient that she will need to follow-up with primary care for management of her pain but suggest that decreasing her alcohol consumption and taking her PPI as directed will most likely help. She is supposed to be following up with surgery for upper and lower endoscopies and she is encouraged to do this. Patient's daughter will be picking her up and taking her home. Return precautions are provided. Medical Records Medical records reviewed: Yes I reviewed the patient's medical records. Medical records narrative: notes from February admission/outpatient surgery notes Lab Data Lab results reviewed: Yes I reviewed the patient's lab results. Lab results narrative: see [facility] ECG Data Attestation: I personally reviewed and interpreted this ECG (s) as follows: Prior ECG tracings: available for review Interpretation: see MDM/EKG Quality:SDOH Health Related Social Needs: Health related social needs housing instability, house d, with risk of homelessness (Z59.811), food insecurity (Z59.41), problems related to housing/economic circumstances (Z59.89), problems finding work (Z56.9) [facility] All Active Problems Alcohol intoxication in active alcoholic (Acute) Alcohol intoxication (Acute) Alcoholic gastritis without bleeding (Acute) Chronic upper gastrointestinal bleeding (Acute) Abdominal pain, LUQ (Acute) Constipation due to opioid therapy (Acute) Alcohol intoxication in active alcoholic with complication (Acute) Cyst and pseudocyst of pancreas (Acute) Alcohol abuse (Chronic) Heavy menses (Acute) Encounter for screening colonoscopy (Acute) Anemia (Chronic) Anxiety (Chronic) DUB (dysfunctional uterine bleeding) (Acute) Impaired fasting blood sugar (Acute 08/01/05) Obesity, unspecified (Acute 05/31/11) Atypical squamous cells of undetermined significance (ASC-US) on cervical Pap smear (Acute 08/05/09) ASCUS 08/05/09; 05/31/2011 Spinal stenosis of lumbar region (Acute 01/11/10) LS spine surg; Dr Sebastian Walker Tobacco dependence (Acute 08/01/05) Medical History Chronic pain (02/20/09) chronic tramadol rx, back pain, sciatica despite LS surg 2009. Depression (04/03/15) Sertaline in the past with good relief of sx but then developed intolerable adverse rxns (nausea, flushing) Started on venlafaxine 03/2015 PHQ9 score = 9, indicating mild depression 03/2015 Anemia Alcohol use disorder COPD (chronic obstructive pulmonary disease) HTN (hypertension), benign Spinal stenosis Lumbar region Surgical History Internal injury, spleen, closed with IR embolization Back surgery L5-S1 decompression 2009 Family History Mother , lung cancer at age 50. No problems noted. Father , MVA No problems noted. Other Lung cancer Social History Smoking/Tobacco Use Status: Current every day Tobacco Type: cigarettes Smoking risk assessment performed?: Yes Alcohol Intake: current Alcohol Intake frequency: 3 or more drinks per day Alcohol type: beer and hard liquor Drug use: Never Substance use type: does not use Housing: other Do you feel safe at home: Yes Do you feel safe in your relationship?: Yes PAWSS Have you Been Recently Intoxicated or Drunk Within the Last 30 days?: Yes Have you Ever Experienced Previous Episodes of Alcohol Withdrawal?: Unable to Obtain Have you ever Experienced Withdrawal Seizures?: Unable to Obtain Have you ever Experienced Delirium Tremens(DT)s?: Unable to Obtain Have you ever undergone Alcohol Rehabilitation Treatment (i.e, inpt ot outpatient treatment programs)?: Unable to Obtain Have you ever Experienced Blackouts?: Unable to Obtain Have you ever Combined Alcohol with other Downers within the last 90 days?: Unable to Obtain Have you ever Combined Alcohol with any other Substance of Abuse during the last 90 days?: Unable to Obtain Positive Blood Alcohol level on Presentation? [PCS.BAL]: Unable to Obtain Evidence of Increased Autonomic Activity (i.e. HR>120, tremor, sweating, agitation, nausea)?: Unable to Obtain Result: 1
[2024-04-18] MEDS: Albuterol/Ipratropium 3 ML UPD VIAL UPD (22:40)
[2024-04-18 22:44] LABS: Lab Add On Test DONE
[2024-04-18 22:48] LABS: Abs Immature Grans 0.03 10^3/uL (0.0-0.06); Absolute Basophil Count 0.16 10^3/uL (0.0-0.2); Absolute Eosinophil Count 0.35 10^3/uL (0.0-0.7); Absolute Monocyte Count 0.56 10^3/uL (0.1-0.8); Absolute Neutrophil Count 4.92 10^3/uL (1.2-6.7); Basophils % 1.8 %; Eosinophils % 3.9 %; HCT 31.1 % (36.0-46.0); HGB 9.2 g/dL (11.2-15.7); Immature Grans % 0.3 %; Lymphocytes % 33.3 %; MCH 24.7 pg (27.0-33.0); MCHC 29.6 % (32.0-36.0); MCV 83 fL (80-95); MPV 9.3 fL (8.0-11.0); Monocytes % 6.2 %; Neutrophils % 54.5 %; Platelet Count 368 10^3/uL (130-400); RBC 3.73 10^6/uL (3.93-5.22); WBC 9.02 10^3/uL (4.4-10.8)
[2024-04-18 23:01] LABS: ALT 20 U/L (14-59); AST 15 U/L (15-37); Albumin 3.5 g/dL (3.4-5.0); Alkaline Phosphatase 101 U/L (46-116); BUN 10 mg/dL (7-18); Bilirubin, Total 0.16 mg/dL (0.2-1.0); Calcium 8.2 mg/dL (8.5-10.1); Chloride 106 mmol/L (98-107); Glucose 174 mg/dL (74-106); Lipase 37 U/L (<78); Magnesium 1.9 mg/dL (1.8-2.4); Potassium 3.7 mmol/L (3.5-5.1); Sodium 144 mmol/L (136-145); Troponin I 49 ng/L (<or=51)
[2024-04-18 23:03] LABS: Anisocytosis 1+
[2024-04-18 23:06] LABS: Estimated GFR 66.53 (mL/min/1.73m2)
[2024-04-18 23:08] LABS: ETHANOL BLOOD 375.3 mg/dL (<10)
[2024-04-18] MEDS: Famotidine 20 MG/2 ML VIAL IVP (23:48)
[2024-04-18] MEDS: ACETAMINOPHEN 1,000 MG/100 ML BAG 400 MG IVPB (23:48)
== END 2024-04-19 00:22 | disposition home or self-care (01) ==
PROVIDERS: Emergency Provider Emergency Medicine; PCP Nurse Practitioner
DX: R10.12 Left upper quadrant pain (principal); R11.2 Nausea with vomiting, unspecified; F10.220 Alcohol dependence with intoxication, uncomplicated; J44.9 Chronic obstructive pulmonary disease, unspecified; I10 Essential (primary) hypertension
CPT/HCPCS: 80053; 83690; 85652; 93005; 96365; 96375; 99285; 80320; 83735; 84484; 85025; 86140; 93010; J0131; J7620

== ENCOUNTER 2024-04-24 03:03 | Inpatient (IN) | payer MEDICAID, SELFPAY ==
[2024-04-24] VITALS (90 sets, daily range): BP systolic 105–177; BP diastolic 52–118; PULSE 88–118; RESP 12–25; TEMP 36.7–36.9; O2SAT 88–99
--- NOTE | 2024-04-24 03:30 | RT.EKG_ITS ---
APPROVED REPORT Exam: Resting ECG Reason for Exam: LUQ pain Patient Location: E HR:97 bpm ECG Measurements Heart Rate 97 AXIS NV 199 P 68 QRSd 93 QRS 62 QT 354 T 55 QTc 450 Conclusion Sinus rhythm...normal P axis, V-rate 60- 99 Borderline prolonged NV interval...NV >197, V-rate 91-120 Low voltage, precordial leads...precordial leads <1.0mV
--- NOTE | 2024-04-24 03:45 | DI.RAD_ITS ---
Exam(s) XR PORTABLE CHEST AP EXAM: XR PORTABLE CHEST AP CLINICAL HISTORY: hypoxia. TECHNIQUE: 2D digital imaging was performed. COMPARISON: CR XR PORTABLE CHEST AP from 03/16/2021 FINDINGS: Single AP portable view. Heart size is upper normal. The mediastinum is not widened. Lungs are clear. No infiltrates nor obvious pleural effusions. IMPRESSION: No acute pulmonary findings on this single AP portable view of the chest. DATA REPOSITORY: RADIATION DOSE DELIVERED:
[2024-04-24 03:47] LABS: Abs Immature Grans 0.02 10^3/uL (0.0-0.06); Absolute Basophil Count 0.12 10^3/uL (0.0-0.2); Absolute Lymphocyte Count 2.75 10^3/uL (1.2-3.4); Absolute Monocyte Count 0.51 10^3/uL (0.1-0.8); Absolute Neutrophil Count 3.31 10^3/uL (1.2-6.7); Basophils % 1.7 %; Eosinophils % 4.3 %; HCT 28.6 % (36.0-46.0); HGB 8.6 g/dL (11.2-15.7); Immature Grans % 0.3 %; Lymphocytes % 39.2 %; MCH 25.2 pg (27.0-33.0); MCHC 30.1 % (32.0-36.0); MCV 84 fL (80-95); MPV 10.2 fL (8.0-11.0); Monocytes % 7.3 %; Neutrophils % 47.2 %; Platelet Count 258 10^3/uL (130-400); RBC 3.41 10^6/uL (3.93-5.22); RDW 26.2 % (11.7-14.6); RDW-SD 76.8 fL; WBC 7.01 10^3/uL (4.4-10.8)
[2024-04-24] MEDS: Droperidol 5 MG/2 ML VIAL 2.5 MG IVP (03:51)
[2024-04-24] MEDS: Pantoprazole 40 MG VIAL IVP ×2 (03:51→20:36)
[2024-04-24] MEDS: MORPHine 4 MG/ML SYR IVP (03:52)
--- NOTE | 2024-04-24 03:55 | W.ED.GENAD ---
Discharge Plan Disposition Patient Disposition: Admit to [facility] Condition: Improving Discharge Details Chief Complaint: Abd Prob Clinical Impression: Alcohol intoxication in active alcoholic, Chronic upper gastrointestinal bleeding, Tobacco dependence, Acute exacerbation of chronic obstructive pulmonary disease (COPD), Abdominal pain, chronic, left upper quadrant, Fracture of rib of left side, COPD with hypoxia, Acute on chronic blood loss anemia Primary Care Provider: Paula Barboza ED Provider: David Warner Home Meds and New Rx's Prescriptions: No Action lisinopril 20 mg tablet 20 mg PO DAILY Qty: 90 3RF citalopram 40 mg tablet 40 mg PO DAILY Qty: 90 3RF propranolol 20 mg tablet 20 mg PO BID Qty: 180 1RF Spiriva Respimat 1.25 mcg/actuation mist 2 puff inhalation DAILY Qty: 4 12RF quetiapine 100 mg tablet See Rx Instructions .ROUTE .COMPLEX Qty: 135 0RF Dose Instruction: TAKE 1 & 1/2 TABLETS BY MOUTH AT BEDTIME DAILY Rx Instructions: TAKE 1 & 1/2 TABLETS BY MOUTH AT BEDTIME DAILY (DME) Hand Held Nebulizer See Rx Instructions .Route .MEDSUPPLY Qty: 1 0RF Rx Instructions: As directed albuterol sulfate 2.5 mg /3 mL (0.083 %) solution for nebulization 2.5 mg inhalation Q4H PRN (Reason: shortness of breath or wheezing) Qty: 180 3RF hydroxyzine HCl 25 mg tablet 25 mg PO TID PRN (Reason: anxiety) Qty: 180 1RF clobetasol-emollient 15 GM cream 1 applic Topical DAILY PRNQty: 60 Rx Instructions: Apply to hands PRN (DME) POCKET CHAMBER Spacer See Rx Instructions .ROUTE .MEDSUPPLY Qty: 1 0RF Rx Instructions: As directed doxepin 25 mg capsule See Rx Instructions .ROUTE .COMPLEX Qty: 60 5RF Dose Instruction: TAKE ONE CAPSULE BY MOUTH TWICE A DAY Rx Instructions: TAKE ONE CAPSULE BY MOUTH TWICE A DAY albuterol sulfate [Ventolin HFA] 90 mcg/actuation HFA aerosol inhaler See Rx Instructions .ROUTE .COMPLEX Qty: 18 12RF Dose Instruction: INHALE TWO PUFFS BY MOUTH EVERY 4 HOURS NEEDED Rx Instructions: INHALE TWO PUFFS BY MOUTH EVERY 4 HOURS NEEDED trazodone 50 mg tablet See Rx Instructions .ROUTE .COMPLEX Qty: 135 1RF Dose Instruction: TAKE 1 & 1/2 TABLETS BY MOUTH DAILY AT BEDTIME NEEDED FOR SLEEP Rx Instructions: TAKE 1 & 1/2 TABLETS BY MOUTH DAILY AT BEDTIME NEEDED FOR SLEEP cyanocobalamin (vitamin B-12) [Vitamin B-12] 500 mcg Tablet 500 mcg PO DAILY Qty: 30 0RF docusate sodium [Colace] 100 mg Capsule 100 mg PO BID Qty: 60 0RF ferrous sulfate 325 mg (65 mg iron) Tablet 325 mg PO DAILY Qty: 30 0RF folic acid 1 mg Tablet 1 mg PO DAILY Qty: 30 0RF thiamine mononitrate (vit B1) [Vitamin B-1 (mononitrate)] 100 mg Tablet 100 mg PO DAILY Qty: 30 0RF pantoprazole [Protonix] 40 mg tablet,delayed release (DR/EC) 40 mg PO DAILY Qty: 30 0RF polyethylene glycol 3350 [Miralax] 17 gram/dose powder 17 g PO .Nightly Qty: 510 0RF bisacodyl 10 mg suppository 10 mg ME DAILY PRN (Reason: constipation lobger than 48 hours) Qty: 12 0RF (DME) nebulizers Misc See Rx Instructions .ROUTE .MEDSUPPLY Qty: 1 0RF Rx Instructions: As directed HPI General Date/Time Provider Initiated Documentation: 04/24/24 03:19. 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 The patient has been seen multiple times over the course of the last week with pain management in the emergency room. The patient has had relatively stable labs over the arc of these visits, and the patient had a CT scan within the last week which showed relatively stable left upper quadrant findings. The patient tells me that her symptoms are worse tonight than they have been recently. The patient also reports that she has been having coffee-ground emesis and bright red blood per rectum, which are also relatively frequent complaints. The patient was hypoxic on arrival in the emergency room with an oxygen saturation in the upper 70s on room air. The patient is agitated and screaming at nurses and other staff. Related Data Home Medications ?Medication ?Instructions ?Recorded ?Confirmed clobetasol-emollient 0.05 % 1 applic topical DAILY PRN #60 12/08/16 04/24/24 topical cream grams inhalational spacing device #1 ea 09/28/20 04/24/24 (POCKET CHAMBER spacer) nebulizers #1 ea 03/16/21 04/24/24 albuterol sulfate 2.5 mg/3 mL 2.5 mg (3 mL) inhalation Q4H PRN 01/10/23 04/24/24 (0.083 %) solution for nebulization shortness of breath or wheezing #180 mL hydroxyzine HCl 25 mg tablet 25 mg PO TID PRN anxiety #180 tabs 01/10/23 04/24/24 Hand Held Nebulizer #1 ea 11/27/23 04/24/24 citalopram 40 mg tablet 40 mg PO DAILY #90 tabs 11/27/23 04/24/24 lisinopril 20 mg tablet 20 mg PO DAILY #90 tab-caps 11/27/23 04/24/24 propranolol 20 mg tablet 20 mg PO BID #180 tabs 11/27/23 04/24/24 quetiapine 100 mg tablet See Rx Instructions .Route 11/27/23 04/24/24 .COMPLEX #135 tabs tiotropium bromide 1.25 2 puff inhalation DAILY #4 grams 11/27/23 04/24/24 mcg/actuation mist for inhalation (Spiriva Respimat) albuterol sulfate 90 mcg/actuation See Rx Instructions .Route 01/22/24 04/24/24 aerosol inhaler (Ventolin HFA) .COMPLEX #18 grams doxepin 25 mg capsule See Rx Instructions .Route 01/22/24 04/24/24 .COMPLEX #60 caps trazodone 50 mg tablet See Rx Instructions .Route 01/22/24 04/24/24 .COMPLEX #135 tabs cyanocobalamin (vitamin B-12) 500 500 mcg PO DAILY #30 tabs 03/13/24 04/24/24 mcg tablet (Vitamin B-12) docusate sodium 100 mg capsule 100 mg PO BID #60 caps 03/13/24 04/24/24 (Colace) ferrous sulfate 325 mg (65 mg 325 mg PO DAILY #30 tabs 03/13/24 04/24/24 iron) tablet folic acid 1 mg tablet 1 mg PO DAILY #30 tabs 03/13/24 04/24/24 pantoprazole 40 mg tablet,delayed 40 mg PO DAILY #30 tabs 03/13/24 04/24/24 release (Protonix) thiamine mononitrate (vit B1) 100 100 mg PO DAILY #30 tabs 03/13/24 04/24/24 mg tablet (Vitamin B-1 (mononitrate)) bisacodyl 10 mg rectal suppository 10 mg ME DAILY PRN constipation 03/22/24 04/24/24 lobger than 48 hours #12 ea polyethylene glycol 3350 17 17 g PO .Nightly #510 grams 03/22/24 04/24/24 gram/dose oral powder (Miralax) Previous Rx's ?Medication ?Instructions ?Recorded inhalational spacing device #1 ea 09/28/20 (POCKET CHAMBER spacer) nebulizers #1 ea 03/16/21 albuterol sulfate 2.5 mg/3 mL 2.5 mg (3 mL) inhalation Q4H PRN 01/10/23 (0.083 %) solution for nebulization shortness of breath or wheezing #180 mL hydroxyzine HCl 25 mg tablet 25 mg PO TID PRN anxiety #180 tabs 01/10/23 Hand Held Nebulizer #1 ea 11/27/23 citalopram 40 mg tablet 40 mg PO DAILY #90 tabs 11/27/23 lisinopril 20 mg tablet 20 mg PO DAILY #90 tab-caps 11/27/23 propranolol 20 mg tablet 20 mg PO BID #180 tabs 11/27/23 quetiapine 100 mg tablet See Rx Instructions .Route 11/27/23 .COMPLEX #135 tabs tiotropium bromide 1.25 2 puff inhalation DAILY #4 grams 11/27/23 mcg/actuation mist for inhalation (Spiriva Respimat) albuterol sulfate 90 mcg/actuation See Rx Instructions .Route 01/22/24 aerosol inhaler (Ventolin HFA) .COMPLEX #18 grams doxepin 25 mg capsule See Rx Instructions .Route 01/22/24 .COMPLEX #60 caps trazodone 50 mg tablet See Rx Instructions .Route 01/22/24 .COMPLEX #135 tabs cyanocobalamin (vitamin B-12) 500 500 mcg PO DAILY #30 tabs 03/13/24 mcg tablet (Vitamin B-12) docusate sodium 100 mg capsule 100 mg PO BID #60 caps 03/13/24 (Colace) ferrous sulfate 325 mg (65 mg 325 mg PO DAILY #30 tabs 03/13/24 iron) tablet folic acid 1 mg tablet 1 mg PO DAILY #30 tabs 03/13/24 pantoprazole 40 mg tablet,delayed 40 mg PO DAILY #30 tabs 03/13/24 release (Protonix) thiamine mononitrate (vit B1) 100 100 mg PO DAILY #30 tabs 03/13/24 mg tablet (Vitamin B-1 (mononitrate)) bisacodyl 10 mg rectal suppository 10 mg ME DAILY PRN constipation 03/22/24 lobger than 48 hours #12 ea polyethylene glycol 3350 17 17 g PO .Nightly #510 grams 03/22/24 gram/dose oral powder (Miralax) Allergies Allergy/AdvReac Type Severity Reaction Status Date / Time hydromorphone (From Dilaudid) Allergy Severe Itching Verified 04/24/24 03:08 oxycodone AdvReac Unknown TERRIBLE Verified 04/24/24 03:08 DREAMS General Stated Complaint: Abd Prob ALISTAIR: 3 Exam Const General: disheveled and frail appearing Nutritional Appearance: obese Orientation: alert and awake Neck Neck: full ROM and no JVD Chest Chest: localized rib tenderness with anteroposterior compression (Left lower ribs) and tenderness (Left lower ribs) rib (9 and 10) Resp Effort & Inspection: normal respiratory effort, able to speak in complete sentences and cough Quality of cough: productive Auscultation: bronchial breath sounds bilaterally and diminished lung sounds Cardio Rate: tachycardic Rhythm: regular rhythm Heart Sounds: S1 normal and S2 normal GI Inspection: normal to inspection, no abdominal wall ecchymosis, non-distended and obesity Palpation: soft and tender in the epigastrum and in the LUQ Auscultation: normal bowel sounds Skin General skin exam: no rashes or lesions noted and turgor normal Neuro General: patient alert, patient awake, oriented Patient Orientation: Person and Place, moves all extremities, normal light touch, pain and propioception and CN's II-XI intact bilaterally Extrem General: full ROM, clubbing, no cyanosis and no edema Psych Appearance: disheveled Speech and Movement: agitated and slurred speech Course Vital Signs Vital signs: Vital Signs Pulse 110 H 04/24/24 03:02 Respiratory Rate 20 04/24/24 03:02 Blood Pressure 168/91 H 04/24/24 03:02 Pulse 110 H 04/24/24 03:02 Respiratory Rate 20 04/24/24 03:02 Blood Pressure 168/91 H 04/24/24 03:02 Blood Pressure Position Sitting 04/24/24 03:02 Medical Decision Making The patient was seen and examined. She is in some amount of distress but is agitated with slurred speech indicative of acute alcohol intoxication. The patient complains of left upper quadrant pain that is ongoing, and the patient does have 2 fractured ribs with nonunion as well as a recently evaluated ruptured pseudocyst in the left upper quadrant. The patient's lung sounds are diminished bilaterally and she has some active coughing and breath sounds would be consistent with secretions within the bronchi bilaterally. The patient's initial oxygen saturation here on room air was 77%. She likely has a combination of splinting and COPD based on her ongoing tobacco misuse disorder, but it is entirely possible getting that she could have developed a pneumonia as well. The patient's laboratory workup ensues, and she will be evaluated for changes in her blood counts, any elevation of her myocardial enzymes, current alcohol level, and any metabolic consequences related to the associated alcohol misuse disorder. Based on the patient's oxygen saturation in the 70s, she will be given a DuoNeb treatment here in the emergency room to see if this improves her symptoms. The patient does occasionally signed out AGAINST MEDICAL ADVICE, but at this point in time she would most likely be a candidate for admission for supplemental oxygen and respiratory supportive care, as a bridge to determining if this simply is a COPD exacerbation or something more significant. 0530 - The patient continues to be somnolent after being given the pain medications and droperidol here in the emergency room. The patient's oxygen saturation was stable on 2 L in the mid 90s for several hours but she again drifted down into the low 90s. She will be given a second DuoNeb treatment here in the emergency room and IV Solu-Medrol to help improve her lung compliance. Her chest x-ray was negative for any focal infiltrative process such as pneumonia. The patient's second troponin was improved over her first, leading me to think that the patient's detected troponin level was related to subendocardial ischemia from a combination of hypoxia and low oxygen carrying capacity in your blood due to her decreasing blood counts. I think the supplemental oxygen has made a significant difference in the patient's cardiac damage. I will recommend that the patient be admitted to the hospital for ongoing management of her underlying COPD disease, observation for improvement in her blood counts, and consideration of management of alcohol withdrawal. Quality:[facility] Health Related Social Needs: Health related social needs housing instability, housed, with risk of homelessness (Z59.811), food insecurity (Z59.41), problems related to housing/economic circumstances (Z59.89), problems finding work (Z56.9) [facility] All Active Problems (Updated 04/24/24 @ 07:29 by David Warner MD) Acute on chronic blood loss anemia (Acute) COPD with hypoxia (Acute) Fracture of rib of left side (Acute) Abdominal pain, chronic, left upper quadrant (Acute) Acute exacerbation of chronic obstructive pulmonary disease (COPD) (Acute) Alcohol intoxication in active alcoholic (Acute) Alcohol intoxication (Acute) Alcoholic gastritis without bleeding (Acute) Chronic upper gastrointestinal bleeding (Acute) Cyst and pseudocyst of pancreas (Acute) Alcohol abuse (Chronic) Heavy menses (Acute) Encounter for screening colonoscopy (Acute) Anemia (Chronic) Anxiety (Chronic) DUB (dysfunctional uterine bleeding) (Acute) Impaired fasting blood sugar (Acute 08/01/05) Obesity, unspecified (Acute 05/31/11) Atypical squamous cells of undetermined significance (ASC-US) on cervical Pap smear (Acute 08/05/09) ASCUS 08/05/09; 05/31/2011 Spinal stenosis of lumbar region (Acute 01/11/10) LS spine surg; Dr Sebastian Walker Tobacco dependence (Acute 08/01/05) Medical History Chronic pain (02/20/09) chronic tramadol rx, back pain, sciatica despite LS surg 2009. Depression (04/03/15) Sertaline in the past with good relief of sx but then developed intolerable adverse rxns (nausea, flushing) Started on venlafaxine 03/2015 PHQ9 score = 9, indicating mild depression 03/2015 Anemia Alcohol use disorder COPD (chronic obstructive pulmonary disease) HTN (hypertension), benign Spinal stenosis Lumbar region Surgical History Internal injury, spleen, closed with IR embolization Back surgery L5-S1 decompression 2009 Family History Mother , lung cancer at age 50. No problems noted. Father , MVA No problems noted. Other Lung cancer Social History Smoking/Tobacco Use Status: Current every day Tobacco Type: cigarettes Smoking risk assessment performed?: Yes Alcohol Intake: current Alcohol Intake frequency: 3 or more drinks per day Alcohol type: beer and hard liquor Drug use: Never Substance use type: does not use Housing: other Do you feel safe at home: Yes Do you feel safe in your relationship?: Yes
[2024-04-24 03:59] LABS: Lipase 45 U/L (<78)
[2024-04-24 04:06] LABS: ETHANOL BLOOD 372.1 mg/dL (<10); Prothrombin Time 10.3 sec (9.1-11.1)
[2024-04-24 04:07] LABS: ALT 20 U/L (14-59); AST 25 U/L (15-37); Albumin 3.2 g/dL (3.4-5.0); Alkaline Phosphatase 115 U/L (46-116); Anion Gap 13.8 mmol/L (3-11); Anisocytosis 1+; BUN 8 mg/dL (7-18); Bilirubin, Total 0.24 mg/dL (0.2-1.0); CO2 26.2 mmol/L (21.0-32.0); CREATININE 0.9 mg/dL (0.55-1.02); Calcium 8.3 mg/dL (8.5-10.1); Chloride 105 mmol/L (98-107); Diff Comment RBC Morph Reviewed; Glucose 98 mg/dL (74-106); Hypochromasia 1+; Magnesium 1.8 mg/dL (1.8-2.4); Potassium 3.6 mmol/L (3.5-5.1); Sodium 145 mmol/L (136-145); Total Protein 7.5 g/dL (6.4-8.2)
[2024-04-24 04:09] LABS: Troponin I 53 ng/L (<or=51)
[2024-04-24 04:13] LABS: Bilirubin Negative (Negative); Blood Negative (Negative); Clarity Cloudy (Clear); Glucose Negative (Negative); Ketones Negative (Negative); Leukocyte Esterase Small (Negative); Nitrite Negative (Negative); Specific Gravity <= 1.005 (1.005-1.025); Urobilinogen 0.2 mg/dL (Up to 0.2); pH 5.5 (5-8)
[2024-04-24] MEDS: Albuterol/Ipratropium 3 ML UPD VIAL UPD ×3 (04:13→11:02)
[2024-04-24 04:18] LABS: Epithelial Cells Many HPF (Negative); RBC 0-2 HPF (0-2)
[2024-04-24 04:19] LABS: Bacteria Moderate HPF (Negative); C & S Indicated? No/Sq. Contamination; Casts Negative LPF (Negative); Crystals Negative HPF (Negative); Mucus Moderate (Negative)
[2024-04-24 04:29] LABS: BE (Venous) -2 mmol/L (-2-3); HCO3 (Venous) 25 mmol/L (23-28); TCO2 (Venous) 24 mmol/L (24-29); pCO2 (Venous) 50 mmHg (41-51); pO2 (Venous) 158 mmHg
[2024-04-24 04:53] LABS: Troponin I 50 ng/L (<or=51)
--- NOTE | 2024-04-24 04:53 | DI.VRAD_ITS ---
PROCEDURE INFORMATION: Exam: XR Chest Exam date and time: 04/24/2024 4:15 AM Age: 53 years old Clinical indication: Other: Hypoxia TECHNIQUE: Imaging protocol: Radiologic exam of the chest. Views: 1 view. COMPARISON: CT CHEST/ABD/PEL W 08/06/2022 6:55 PM FINDINGS: Lungs: Unremarkable. No consolidation. Pleural spaces: Unremarkable. No pleural effusion. No pneumothorax. Heart/Mediastinum: Unremarkable. No cardiomegaly. Bones/joints: Unremarkable. IMPRESSION: No acute findings. Dictated and Authenticated by: Suleman Gupta MD. Orderin Timmy Hernandez MD
[2024-04-24] MEDS: POTASSIUM CHLORIDE/D5-0.45NACL 1,000 ML 100 MEQ IV ×2 (05:09→17:40)
[2024-04-24] MEDS: THIAMINE 500 MG in Normal Saline 100 ML 200 MG IVPB (05:09)
[2024-04-24] MEDS: methylPREDNISolone SUCC 125 MG VIAL 80 MG IVP (07:02)
[2024-04-24] MEDS: Normal Saline Flush 10 ML SYR IVP ×5 (07:02→22:41)
[2024-04-24 07:34] LABS: Troponin I 49 ng/L (<or=51)
--- NOTE | 2024-04-24 09:52 | HPE_ITS ---
Date of service: 04/24/24 Time of Service: 09:53 Assessment and Plan Assessment and plan (1) COPD with hypoxia: Status: Acute Assessment and plan: Treated with Solu Medrol and nebs, will continue, transition to prednisone No fever/sputum, no antibiotics for now. continue home inhalers. (2) Alcohol withdrawal syndrome: Status: Acute Assessment and plan: She would like help through withdraw. She is starting to have symptoms with anxiety, hypertesion, and tremor. Started protocol with CIWA, bannana bag, and phenobarbital. (3) Tobacco dependence: Status: Acute Assessment and plan: NRT prn (4) Abdominal pain, chronic, left upper quadrant: Status: Acute Assessment and plan: related to fluid collection, which has been stable. can use fentanyl if severe and causing splinting monitor. (5) Chronic upper gastrointestinal bleeding: Status: Acute Assessment and plan: Will give BID pantoprazole, monitor for bleeding. She is on propranolol but I don't see history of cirrhosis or portal HTN or varicies. H/o alcoholic gastritis causing bleed, also appears to have a lower source with BRBPR in small amounts. H/H do not reflect dramatic blood loss over the past several weeks. (6) Acute hypoxemic respiratory failure: Status: Acute Assessment and plan: Probably a combination of some COPD exacerbation and the LUQ/flank pain. She has broken ribs but these are not acute. stable on nasal cannula, not retaining CO2 (7) Acute on chronic blood loss anemia: Status: Acute Assessment and plan: Repeat hemoglobin stable, EGD is not emergent. Monitor. (8) Alcohol use disorder: Assessment and plan: She would like to stay sober after she gets through withdrawal. 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 (9) DVT prophylaxis: Status: Acute Assessment and plan: SCD as having some active bleeding History of Present Illness History of Present Illness Chief Complaint: abdominal/flank pain Narrative: 53 yo F with alcohol use disorder and daily drinking, smoker, chronic gastrointestinal bleeding without known cirrhosis, previous ruptured pancreatic pseudocyst who presented with recurrence of LUQ abdominal to flank pain. She was admitted 03/10- for LUQ pain that was attributed to a ruptured pancreatic pseudocyst. At that presentation she had a splenic hematoma so she was transferred to [facility], but was transferred back after the hematoma was deemed stable and not causing her symptoms. She was seen in the ED 03/22 for similar pain. She was seen 04/16 with the same LUQ pain associated with coffee ground emesis and black tarry stools. At both visits she had CT abd/pelvis that showed old rib fractures and stable to improved fluid collection around the pancreas. Her hemoglobins have been roughly stable despite ongoing GI bleeding, and she recently met with Dr. Lemus about outpatient EGD/colo. She returned today with recurrence of the same LUQ pain. Sharp, severe, in lower left chest to LUQ to her left flank and mid back. Hurts to breath deeply. She has not had fevers/chills. She has runny nose and some cough and sputum but these are chronic. She doesn't feel short of breath at rest, but does feel SOB with activity. She describes very small BMs every hour, which she relates to alcohol. There is bright red blood in stool per report. She last vomited yesterday, and this looked like coffee grounds. She does not feel dizzy, chest pain in her mid chest, or palpitations. She last drank last night before coming in at 3am. She drinks a fifth of vodka a day. She would like to quit drinking but is afraid of withdrawal. She has no h/o seizures but she has been drinking more than previously. Review of Systems All systems reviewed & are unremarkable except as noted in HPI and below Genitourinary Genitourinary: Denies abnormal vaginal bleeding, Denies hematuria, Denies pelvic pain and Denies vaginal discharge Hematologic/Lymphatic Comments: no other bleeding other than GI PFSH All Active Problems (Updated 04/24/24 @ 10:44 by Slava Garcia) DVT prophylaxis (Acute) Alcohol withdrawal syndrome (Acute) Acute hypoxemic respiratory failure (Acute) Acute on chronic blood loss anemia (Acute) COPD with hypoxia (Acute) Fracture of rib of left side (Acute) Abdominal pain, chronic, left upper quadrant (Acute) Acute exacerbation of chronic obstructive pulmonary disease (COPD) (Acute) Alcohol intoxication in active alcoholic (Acute) Alcohol intoxication (Acute) Alcoholic gastritis without bleeding (Acute) Chronic upper gastrointestinal bleeding (Acute) Cyst and pseudocyst of pancreas (Acute) Alcohol abuse (Chronic) Heavy menses (Acute) Encounter for screening colonoscopy (Acute) Anemia (Chronic) Anxiety (Chronic) DUB (dysfunctional uterine bleeding) (Acute) Impaired fasting blood sugar (Acute 08/01/05) Obesity, unspecified (Acute 05/31/11) Atypical squamous cells of undetermined significance (ASC-US) on cervical Pap smear (Acute 08/05/09) ASCUS 08/05/09; 05/31/2011 Spinal stenosis of lumbar region (Acute 01/11/10) LS spine surg; Mitzy Hughes, Dr Cortes Tobacco dependence (Acute 08/01/05) Medical History COPD (chronic obstructive pulmonary disease) Alcohol use disorder Anemia HTN (hypertension), benign Chronic pain (02/20/09) chronic tramadol rx, back pain, sciatica despite LS surg 2009. Depression (04/03/15) Sertaline in the past with good relief of sx but then developed intolerable adverse rxns (nausea, flushing) Started on venlafaxine 03/2015 PHQ9 score = 9, indicating mild depression 03/2015 Spinal stenosis Lumbar region Surgical History Internal injury, spleen, closed with IR embolization Back surgery L5-S1 decompression 2009 Family History Mother , lung cancer at age 50. No problems noted. Father , MVA No problems noted. Other Lung cancer Social History Smoking/Tobacco Use Status: Current every day Tobacco Type: cigarettes Smoking risk assessment performed?: Yes Alcohol Intake: current Alcohol Intake frequency: 3 or more drinks per day Alcohol type: beer and hard liquor Drug use: Never Substance use type: does not use Housing: other Do you feel safe at home: Yes Do you feel safe in your relationship?: Yes Meds Allergies and Home Medications Allergies Allergy/AdvReac Type Severity Reaction Status Date / Time hydromorphone (From Dilaudid) Allergy Severe Itching Verified 04/24/24 03:08 oxycodone AdvReac Unknown TERRIBLE Verified 04/24/24 03:08 DREAMS Home Medications ?Medication ?Instructions ?Recorded ?Confirmed ?Type clobetasol-emollient 0.05 % 1 applic topical DAILY PRN #60 12/08/16 04/24/24 History topical cream grams inhalational spacing device #1 ea 09/28/20 04/24/24 Rx (POCKET CHAMBER spacer) nebulizers #1 ea 03/16/21 04/24/24 Rx albuterol sulfate 2.5 mg/3 mL 2.5 mg (3 mL) inhalation Q4H PRN 01/10/23 04/24/24 Rx (0.083 %) solution for nebulization shortness of breath or wheezing #180 mL hydroxyzine HCl 25 mg tablet 25 mg PO TID PRN anxiety #180 tabs 01/10/23 04/24/24 Rx Hand Held Nebulizer #1 ea 11/27/23 04/24/24 Rx citalopram 40 mg tablet 40 mg PO DAILY #90 tabs 11/27/23 04/24/24 Rx lisinopril 20 mg tablet 20 mg PO DAILY #90 tab-caps 11/27/23 04/24/24 Rx propranolol 20 mg tablet 20 mg PO BID #180 tabs 11/27/23 04/24/24 Rx quetiapine 100 mg tablet See Rx Instructions .Route 11/27/23 04/24/24 Rx .COMPLEX #135 tabs tiotropium bromide 1.25 2 puff inhalation DAILY #4 grams 11/27/23 04/24/24 Rx mcg/actuation mist for inhalation (Spiriva Respimat) albuterol sulfate 90 mcg/actuation See Rx Instructions .Route 01/22/24 04/24/24 Rx aerosol inhaler (Ventolin HFA) .COMPLEX #18 grams doxepin 25 mg capsule See Rx Instructions .Route 01/22/24 04/24/24 Rx .COMPLEX #60 caps trazodone 50 mg tablet See Rx Instructions .Route 01/22/24 04/24/24 Rx .COMPLEX #135 tabs cyanocobalamin (vitamin B-12) 500 500 mcg PO DAILY #30 tabs 03/13/24 04/24/24 Rx mcg tablet (Vitamin B-12) docusate sodium 100 mg capsule 100 mg PO BID #60 caps 03/13/24 04/24/24 Rx (Colace) ferrous sulfate 325 mg (65 mg 325 mg PO DAILY #30 tabs 03/13/24 04/24/24 Rx iron) tablet folic acid 1 mg tablet 1 mg PO DAILY #30 tabs 03/13/24 04/24/24 Rx pantoprazole 40 mg tablet,delayed 40 mg PO DAILY #30 tabs 03/13/24 04/24/24 Rx release (Protonix) thiamine mononitrate (vit B1) 100 100 mg PO DAILY #30 tabs 03/13/24 04/24/24 Rx mg tablet (Vitamin B-1 (mononitrate)) bisacodyl 10 mg rectal suppository 10 mg OH DAILY PRN constipation 03/22/24 04/24/24 Rx lobger than 48 hours #12 ea polyethylene glycol 3350 17 17 g PO .Nightly #510 grams 03/22/24 04/24/24 Rx gram/dose oral powder (Miralax) Exam Narrative Exam Narrative: GEN: Alert and oriented x 4, anxious but cooperative, gives linear history. Appears uncomfortable but non-toxic. HEENT: Head atraumatic. Conjunctiva clear, no icterus. PEERL, EOMI. no rhinorrhea noted. MM dry, OP benign. Neck is supple with no masses or lymphadenopathy, trachea midline LUNGS: Diffuse rhonchorous breath sounds, no rales, normal effort CV: RRR with no murmurs, gallops, or rubs. ABD: active bowel sounds, soft, moderate tenderness in RUQ and LUQ, nondistended. No masses, no fluid wave, no rebound. EXT: no cyanosis, clubbing, or edema MSK: No joint redness or swelling NEURO: CN 2-12 grossly intact. Normal movement of 4 extremities. Normal speech and coordination. mild tremor, no asterixis SKIN: No rashes or open wounds. PSYCH: anxious mood and affect, normal thought process Results Imaging Chest x-ray: report reviewed (no acute process) Labs 04/24/24 13:05 04/24/24 03:16 Labs: Laboratory Results - last 24 hr 04/24/24 04/24/24 04/24/24 03:16 03:44 04:20 WBC 7.01 RBC 3.41 L Hgb 8.6 L Hct 28.6 L MCV 84 MCH 25.2 L MCHC 30.1 L RDW 26.2 H Plt Count 258 MPV 10.2 Immature Gran % 0.3 Neutrophils % 47.2 Lymphocytes % 39.2 Monocytes % 7.3 Eosinophils % 4.3 Basophils % 1.7 Nucleated RBC % 0.0 Absolute Neutrophils 3.31 Absolute Lymphocytes 2.75 Absolute Monocytes 0.51 Absolute Eosinophils 0.30 Absolute Basophils 0.12 RBC Morphology See Below Hypochromasia 1+ Anisocytosis 1+ PT 10.3 INR 1.0 VBG pH 7.30 L VBG pCO2 50 VBG pO2 158 VBG HCO3 25 VBG Total CO2 24 VBG O2 Saturation VBG Base Excess -2 Sodium 145 Potassium 3.6 Chloride 105 Carbon Dioxide 26.2 Anion Gap 13.8 H BUN 8 Creatinine 0.9 Est GFR (CKD-EPI 2020) 75.50 Glucose 98 Calcium 8.3 L Magnesium 1.8 Total Bilirubin 0.24 AST 25 ALT 20 Alkaline Phosphatase 115 Troponin I 53 H* 50 Total Protein 7.5 Albumin 3.2 L Lipase 45 Urine Color Yellow Urine Clarity Cloudy Urine pH 5.5 Ur Specific [place] <= 1.005 Urine Protein Negative Urine Ketones Negative Urine Blood Negative Urine Nitrite Negative Urine Bilirubin Negative Urine Urobilinogen 0.2 Ur Leukocyte Esterase Small H Urine RBC 0-2 Urine WBC 5-10 Ur Epithelial Cells Many Urine Crystals Negative Urine Bacteria Moderate Urine Casts Negative Urine Mucus Moderate Ur Culture Indicated? No/Sq. Contamination Urine Glucose Negative Ethyl Alcohol 372.1 H ABO/Rh A Positive Antibody Screen NEGATIVE 04/24/24 07:08 WBC RBC Hgb Hct MCV MCH MCHC RDW Plt Count MPV Immature Gran % Neutrophils % Lymphocytes % Monocytes % Eosinophils % Basophils % Nucleated RBC % Absolute Neutrophils Absolute Lymphocytes Absolute Monocytes Absolute Eosinophils Absolute Basophils RBC Morphology Hypochromasia Anisocytosis PT INR VBG pH VBG pCO2 VBG pO2 VBG HCO3 VBG Total CO2 VBG O2 Saturation VBG Base Excess Sodium Potassium Chloride Carbon Dioxide Anion Gap BUN Creatinine Est GFR (CKD-EPI 2020) Glucose Calcium Magnesium Total Bilirubin AST ALT Alkaline Phosphatase Troponin I 49 Total Protein Albumin Lipase Urine Color Urine Clarity Urine pH Ur Specific [place] Urine Protein Urine Ketones Urine Blood Urine Nitrite Urine Bilirubin Urine Urobilinogen Ur Leukocyte Esterase Urine RBC Urine WBC Ur Epithelial Cells Urine Crystals Urine Bacteria Urine Casts Urine Mucus Ur Culture Indicated? Urine Glucose Ethyl Alcohol ABO/Rh Antibody Screen Last Vital Signs Pulse 108 H 04/24/24 09:40 Resp 16 04/24/24 09:40 BP 166/65 H 04/24/24 09:30 Pulse Ox 95 04/24/24 09:40 Time Spent Time spent with Patient: 55-74 minutes Time was spent: preparing to see the patient(eg.review tests), obtaining and/or reviewing separately otained hiistory, ordering medications,tests, procedures, referring, communicating with other health career based intervention coordinator, indepentently interpreting results, counseling the patient and care coordination
[2024-04-24] MEDS: fentaNYL 100 MCG/2 ML VIAL 50 MCG IVP ×4 (10:36→22:41)
[2024-04-24] MEDS: PHENobarbital 130 MG in Normal Saline 50 ML 100 MG IVPB (10:42)
--- NOTE | 2024-04-24 12:53 | PHA.REVIEW2 ---
Pharmacy Admission Review Admission Clinical Review Admission Pharmacy Review: DVT prophylaxis (Acute) Alcohol withdrawal syndrome (Acute) Acute hypoxemic respiratory failure (Acute) Acute on chronic blood loss anemia (Acute) COPD with hypoxia (Acute) Fracture of rib of left side (Acute) Abdominal pain, chronic, left upper quadrant (Acute) Acute exacerbation of chronic obstructive pulmonary disease (COPD) (Acute) Alcohol intoxication in active alcoholic (Acute) Chronic upper gastrointestinal bleeding (Acute) Tobacco dependence (Acute 08/01/05) hydromorphone (From Dilaudid) Allergy (Severe, Verified 04/24/24 03:08) Itching oxycodone Adverse Reaction (Unknown, Verified 04/24/24 03:08) TERRIBLE DREAMS Resuscitation Status Full Code Height 5 ft 3 in Weight 80 kg Pharmacy Admission Review Renal Dosing Renal Dosing: BUN 8 mg/dL (7-18) 04/24/24 03:16 Creatinine 0.9 mg/dL (0.55-1.02) 04/24/24 03:16 Medications needing adjustments: Reviewed (CrCl 70.72 mL/min) List of meds needing interventions: Current medications are okay Anticoagulation Anticoagulation: Hgb 8.6 g/dL (11.2-15.7) L 04/24/24 03:16 Hct 28.6 % (36.0-46.0) L 04/24/24 03:16 Plt Count 258 10^3/uL (130-400) 04/24/24 03:16 INR 1.0 (0.9-1.1) 04/24/24 03:16 Creatinine 0.9 mg/dL (0.55-1.02) 04/24/24 03:16 DVT Prophylaxis: Reviewed (SCDs/TEDs) Opiate Usage Evaluate Pain Scale/Pains Meds: Reviewed (fentanyl 50mcg IVP q2h PRN - 50mcg / 24 hrs) Scheduled Bowel Reg ordered if on Opiates?: No Relevant Labs Relevant Labs: Sodium 145 mmol/L (136-145) 04/24/24 03:16 Potassium 3.6 mmol/L (3.5-5.1) 04/24/24 03:16 Chloride 105 mmol/L (98-107) 04/24/24 03:16 Magnesium 1.8 mg/dL (1.8-2.4) 04/24/24 03:16 Electrolytes, C-Reactive P, ESR: Reviewed Cardiac Review Cardiac Review: Troponin I 49 ng/L (<or=51) 04/24/24 07:08 Blood Pressure 145/92 1157 Heart Rate 112 Blood Pressure 134/71 1116 Heart Rate 103 Blood Pressure 177/106 1101 Heart Rate 104 Blood Pressure 159/77 1046 Heart Rate 115 Blood Pressure 177/89 1031 Heart Rate 115 Blood Pressure 165/97 1016 Heart Rate 110 Blood Pressure 162/91 1001 Heart Rate 98 Blood Pressure 151/89 0945 Heart Rate 100 Blood Pressure 166/65 0930 Heart Rate 99 Blood Pressure 170/107 0900 Heart Rate 100 BP, HR, EF%: Reviewed (Ox 91) List meds needing interventions: has order for lisinopril 20mg daily and propranolol 20mg BID QTc Review QTc: Reviewed (450 from 04/24/24) IV to PO Switch IV Medications: Reviewed (fentanyl and phenobarbital) Home Meds Home Med List reviewed: Intervened Relevent Home Meds Not ordered & why?: bisacodyl (PRN), docusate, pantoprazole and Miralax Reached out to provider regarding the above medication. Per provider patient has loose stool - holding docusate and Miralax. 2 meds (Spiriva 1.25mcg and clobetasol) put in as patients own meds. Called nurse who is checking with patient to see if these can be brought in. Current Meds Current Medication Order Review: Reviewed Comments: Phenobarbital for CIWA Soft stop: 786mg Hard stop: 1048mg Current total: 130mg (1st loading dose given) CIWA 8 at 1152
[2024-04-24 13:14] LABS: HCT 27.8 % (36.0-46.0); HGB 8.1 g/dL (11.2-15.7)
[2024-04-24] MEDS: MULTIVITAMIN 10 ML, THIAMINE 100 MG, FOLIC ACID 1 MG in DEXTROSE 5%-0.45% SALINE 1,000 ML 150 ML IV (13:16)
[2024-04-24] MEDS: hydrOXYzine HCL 25 MG TAB PO (14:25)
[2024-04-24] MEDS: methylPREDNISolone SUCC 125 MG VIAL 60 MG IVP (16:05)
[2024-04-24] MEDS: QUEtiapine 100 MG TAB 150 MG PO (20:35)
[2024-04-24] MEDS: traZODone 50 MG TAB 75 MG PO (20:36)
[2024-04-24] MEDS: Doxepin 25 MG CAP PO (20:36)
[2024-04-24] MEDS: Propranolol 20 MG TAB PO (20:36)
[2024-04-24] MEDS: PHENobarbital 130 MG/ML VIAL IVP ×2 (21:47→22:41)
[2024-04-25] MEDS: methylPREDNISolone SUCC 125 MG VIAL 60 MG IVP ×2 (00:59→08:14)
[2024-04-25 03:00] VITALS: PULSE 91; RESP 16; TEMP 36.7; O2SAT 92
[2024-04-25] MEDS: fentaNYL 100 MCG/2 ML VIAL 50 MCG IVP ×3 (03:14→10:31)
[2024-04-25] MEDS: Normal Saline Flush 10 ML SYR IVP ×4 (03:14→22:13)
[2024-04-25] MEDS: hydrOXYzine HCL 25 MG TAB PO (03:14)
[2024-04-25] MEDS: PHENobarbital 130 MG/ML VIAL IVP (03:14)
[2024-04-25 07:06] LABS: HCT 26.1 % (36.0-46.0); HGB 7.7 g/dL (11.2-15.7); MCH 24.8 pg (27.0-33.0); MCHC 29.5 % (32.0-36.0); MCV 84 fL (80-95); MPV 10.5 fL (8.0-11.0); Platelet Count 179 10^3/uL (130-400); RBC 3.11 10^6/uL (3.93-5.22); RDW 25.4 % (11.7-14.6); RDW-SD 75.7 fL; WBC 6.15 10^3/uL (4.4-10.8)
[2024-04-25 07:28] LABS: ALT 19 U/L (14-59); AST 24 U/L (15-37); Albumin 3.1 g/dL (3.4-5.0); Alkaline Phosphatase 97 U/L (46-116); Anion Gap 9.5 mmol/L (3-11); BUN 13 mg/dL (7-18); Bilirubin, Total 0.61 mg/dL (0.2-1.0); CO2 24.5 mmol/L (21.0-32.0); CREATININE 0.8 mg/dL (0.55-1.02); Calcium 8.1 mg/dL (8.5-10.1); Chloride 101 mmol/L (98-107); Estimated GFR 86.96 (mL/min/1.73m2); Glucose 194 mg/dL (74-106); Magnesium 1.4 mg/dL (1.8-2.4); Potassium 4.8 mmol/L (3.5-5.1); Sodium 135 mmol/L (136-145); Total Protein 7.2 g/dL (6.4-8.2)
[2024-04-25 07:51] VITALS: BP 177/127; PULSE 88; RESP 20; TEMP 36.2; O2SAT 95
[2024-04-25] MEDS: predniSONE 20 MG TAB 40 MG PO (08:15)
[2024-04-25] MEDS: Pantoprazole 40 MG VIAL IVP (08:15)
[2024-04-25] MEDS: Thiamine 100 MG TAB PO (08:16)
[2024-04-25] MEDS: Ferrous Sulfate 325 MG TAB PO (08:16)
[2024-04-25] MEDS: Cyanocobalamin 500 MCG TAB PO (08:16)
[2024-04-25] MEDS: Propranolol 20 MG TAB PO ×2 (08:16→21:23)
[2024-04-25] MEDS: Lisinopril 20 MG TAB PO (08:16)
[2024-04-25] MEDS: Folic Acid 1 MG TAB PO (08:16)
[2024-04-25] MEDS: Citalopram 20 MG TAB 40 MG PO (08:16)
[2024-04-25] MEDS: Doxepin 25 MG CAP PO ×2 (08:16→21:23)
--- NOTE | 2024-04-25 09:49 | INITIAL_ITS ---
Date of service: 04/25/24 Time of Service: 09:49 Care Management Initial Assmt Initial Assessment Reason for Hospitalization: alcohol withdrawal and COPD with hypoxia Functional Status/Living Situation Patient Presentation: Adrianne presented to the ED yesterday morning with c/o LUQ pain. She has been seen frequently in the ER for same complaint. Yesterday she reported coffee ground emesis and blood in her stool. She was hypoxic in the ER, and required O2 for a short time. Adrianne is a heavy drinker, and is worried about withdrawal symptoms. She is being medicated for this. She was offered a visit from the Ste[facility]Ste[facility] L[facility], and was given resources on treatment programs, both inpatient and outpatient. She does not want inpatient tx and did not want the Wire Drawing Machine Tender today. VIKTORIA let her know that the [facility] is available 12/09, and she can ask any of her team members to make that call for her. Adrianne is currently residing at the [facility]. She stated that she only has 14 days left there, and is unsure where she will be going after that. She is involved with [facility], but she has no income, so can not find permanent housing. Her daughter is in section 8 housing, so she can not stay with her, and her sister lives in [place], and she is unable to get there. She stated that she has applied for disability with the help of an SSI import/export specialist, whom she did not know the name of. Adrianne also stated that she can not afford to pay for her phone, so is only able to use her [employer] Messenger when she has wifi. Referral was sent to [facility], with Adrianen's agreement. VIKTORIA was also in contact with Adrianne's CC at her PCP office and updated her on this admission. Adrianne also stated that the surgeon came to see her and she will be scoped, both upper and lower as outpatient. Town of Residence: [facility] at the [facility] Significant Other/Family: Local (daughter, Lucia and sister Jelly) Natural Supports: daughter and ex- Employment Status: Unemployed (is trying to get disability) Instrumental Activities of Daily Living (ADLs): Independent Medications Medication Management: No Issues/Barriers identified Advance Directives Advance Directives: Do you have an Advance Directive: N 08/08/13 09:23 AD On File at [facility]: N 08/08/13 09:23 Date Asked 04/24/24 04/24/24 11:40 AD Date Reviewed COLST On File at [facility] COLST Date Scanned Code Status Resuscitation Status Full Code Insurance Coverage/Financial Issues Insurance: Medicaid Care Team Visit Care Team Role Provider Type Paula Barboza NP Primary Care Provider NURSE PRACTITIONER David Warner MD Emergency Provider [facility] STAFF PHYSICIAN Slava Garcia Admit Provider [facility] STAFF PHYSICIAN Attending Provider Other: Is also followed by SONYA Zamarripa at [facility] (her PCP office). Discharge Potential Discharge Needs: PCP F/U Appt and Other ([facility]) Anticipated Barriers to Discharge: None Identified Patient/Family Education Needs: Review discharge instructions, discuss Ask Me Three Plan: Anticipate that Adrianne will be discharged home once medically stable with no new orders. She will continue per her plan of care and f/u with her PCP and the healthcare insurance sales agent at her PCP office. Adrianne will f/u with [facility] and [facility], and hopefully [facility]. Adrianne will likely need an RCT ride. CM will continue to monitor and update the plan as needed. Social Determinants of Health Screening Social Determinants of Health last assessed: 04/25/24 Will the Patient Participate in the Screening?: Yes Do you worry about having a steady place to live?: yes What is your living situation today?: I have housing today, but am worried about losing it Problems where you live: smoke detectors missing or not working and Carbon monoxide detectors missing or not working In the past 12 months, have you had to go without electric, gas, oil or water in your home?: yes Have you or anyone in your house had to go without enough food to eat?: no Has lack of transportation kept you from medical appointments or from doing things needed for daily living?: no Has anyone in your life made you feel unsafe or unsupported?: no How hard is it for you to pay for the very basics like food, housing, medical care, and heating? Would you say it is:: Somewhat hard Do you want help finding or keeping work or a job?: I do not need or want help If for any reason you need help with day-to-day activities such as bathing, preparing meals, shopping, managing finances, etc., do you get the help you need?: I don?t need any help How often do you feel lonely or isolated from those around you?: Always Do you speak a language other than Romansh at home?: No Health Related Social Needs Health related social needs: inadequate housing (Z59.1), housing instability, housed, with risk of homelessness (Z59.811), material hardship(utilities) (Z59.12), problems related to housing/economic circumstances (Z59.89) and feeling lonely/isolated (Z60.8) PFSH All Active Problems (Updated 04/24/24 @ 10:44 by Slava Garcia) DVT prophylaxis (Acute) Alcohol withdrawal syndrome (Acute) Acute hypoxemic respiratory failure (Acute) Acute on chronic blood loss anemia (Acute) COPD with hypoxia (Acute) Fracture of rib of left side (Acute) Abdominal pain, chronic, left upper quadrant (Acute) Acute exacerbation of chronic obstructive pulmonary disease (COPD) (Acute) Alcohol intoxication in active alcoholic (Acute) Alcohol intoxication (Acute) Alcoholic gastritis without bleeding (Acute) Chronic upper gastrointestinal bleeding (Acute) Cyst and pseudocyst of pancreas (Acute) Alcohol abuse (Chronic) Heavy menses (Acute) Encounter for screening colonoscopy (Acute) Anemia (Chronic) Anxiety (Chronic) DUB (dysfunctional uterine bleeding) (Acute) Impaired fasting blood sugar (Acute 08/01/05) Obesity, unspecified (Acute 05/31/11) Atypical squamous cells of undetermined significance (ASC-US) on cervical Pap smear (Acute 08/05/09) ASCUS 08/05/09; 05/31/2011 Spinal stenosis of lumbar region (Acute 01/11/10) LS spine surg; Dr Sebastian Walker Tobacco dependence (Acute 08/01/05) Medical History COPD (chronic obstructive pulmonary disease) Alcohol use disorder Anemia HTN (hypertension), benign Chronic pain (02/20/09) chronic tramadol rx, back pain, sciatica despite LS surg 2009. Depression (04/03/15) Sertaline in the past with good relief of sx but then developed intolerable adverse rxns (nausea, flushing) Started on venlafaxine 03/2015 PHQ9 score = 9, indicating mild depression 03/2015 Spinal stenosis Lumbar region Surgical History Internal injury, spleen, closed with IR embolization Back surgery L5-S1 decompression 2009 Family History Mother , lung cancer at age 50. No problems noted. Father , MVA No problems noted. Other Lung cancer Social History Smoking/Tobacco Use Status: Current every day Tobacco Type: cigarettes Smoking risk assessment performed?: Yes Alcohol Intake: current Alcohol Intake frequency: 3 or more drinks per day Alcohol type: beer and hard liquor Drug use: Never Substance use type: does not use Housing: other Do you feel safe at home: Yes Do you feel safe in your relationship?: Yes Readmission Within the Past 30 Days Yes or No: No
[2024-04-25 11:52] VITALS: BP 174/113; PULSE 74; RESP 24; TEMP 36.7; O2SAT 94
--- NOTE | 2024-04-25 12:05 | W.NUTRFU ---
Date of service: 04/25/24 Time of Service: 11:15 Nutrition Note NOTE: Pt is 53yo female BIBA for LUQ pain. Has hx of etoh use. Being treated for COPD with hypoxia, etloh w/d, current tobacco dependence, abd pain and crhonic upper GI bleeding. Pt receiving iron, folic acid, b12, and B1. given IV mag to correct low mag at 1.4 today. BMI currently in class 1 obesity range with a weight hx showing ~10kg weight gain over the last ~6 months. last a1c was 5.8% 2020. 194 fasting glucose this morning and was high during admission last month. Albumin 3.1 today with normal total protein. Pt ordered for regular diet. Pt sleeping on visit - did not wake Nutrition dx elevated A1C hx related to insulin resistance due to dysfunctional metabolism as evidenced by obesity and possbily disregulation of glucose metabolism as a result of etoh abuse. Patient ordered for approprioate nutrient replenishment. would also suggest vitamin D lab as well as repeat A1c Time Spent in Nutritional Counseling and Treatment: 0
[2024-04-25] MEDS: MAGNESIUM SULFATE 2 GM/50 ML BAG IV_INF (14:15)
--- NOTE | 2024-04-25 14:52 | W.PM.PROGNOT ---
Date of Service Date of service: 04/25/24 Time of Service: 13:05 Assessment and Plan Assessment and plan (1) COPD with hypoxia: Status: Acute Assessment and plan: Treated with Solu Medrol and nebs, now prednisone, no logner hypoxic. No fever/sputum, no antibiotics for now. continue home inhalers. (2) Alcohol withdrawal syndrome: Status: Acute Assessment and plan: Doing well on phenobarbital protocol. (3) Tobacco dependence: Status: Acute Assessment and plan: NRT prn (4) Abdominal pain, chronic, left upper quadrant: Status: Acute Assessment and plan: related to fluid collection, which has been stable. change pain medication to oral monitor. (5) Chronic upper gastrointestinal bleeding: Status: Acute Assessment and plan: Not acute, continue pantoprozole daily. (6) Acute on chronic blood loss anemia: Status: Acute Assessment and plan: Repeat hemoglobin stable, EGD is not emergent. Monitor. (7) Alcohol use disorder: Assessment and plan: She would like to stay sober after she gets through withdrawal. Offer therapy, meds, nutritional health coach. She is open to this. She had bad experience at [facility], but open to outpatient therapy. (8) DVT prophylaxis: Status: Acute Assessment and plan: SCD as having some active bleeding (9) HTN (hypertension), benign: Assessment and plan: BP remains high. She states her BP has been labile. She may be better off propranolol, especially since using bronchodilators. Try low dose HCTZ with lisniopirl Subjective Subjective Patient reports: feels better, tolerating a regular diet and voiding w/o difficulty; denies diarrhea, nausea, vomiting, shortness of breath or fever Interval history since last seen: Feeling okay. still with LUQ pain she has had for weeks, around her back. Feeling less shakey. She can't remember why she ended up on propranolol, possibly anxiety. no h/o cirrhosis/portal HTN or migraines. States he BP is always up and down. Exam Narrative Exam Narrative: GEN: Alert and oriented x 4, NAD, less anxious. LUNGS: Diffuse rhonchorous breath sounds, no rales, normal effort CV: RRR with no murmurs, gallops, or rubs. EXT: no cyanosis, clubbing, or edema NEURO: Normal speech and coordination. no tremor PSYCH: anxious mood and affect, normal thought process Objective Last Vital Signs Temp 36.7 C 04/25/24 11:52 Pulse 74 04/25/24 11:52 Resp 24 04/25/24 11:52 BP 174/113 H 04/25/24 11:52 Pulse Ox 94 04/25/24 11:52 Laboratory Results - last 24 hr 04/25/24 06:34 WBC 6.15 RBC 3.11 L Hgb 7.7 L Hct 26.1 L MCV 84 MCH 24.8 L MCHC 29.5 L RDW 25.4 H Plt Count 179 MPV 10.5 Sodium 135 L Potassium 4.8 D Chloride 101 Carbon Dioxide 24.5 Anion Gap 9.5 BUN 13 Creatinine 0.8 Est GFR (CKD-EPI 2020) 86.96 Glucose 194 H Calcium 8.1 L Magnesium 1.4 L Total Bilirubin 0.61 AST 24 ALT 19 Alkaline Phosphatase 97 Total Protein 7.2 Albumin 3.1 L PAWSS Have you Been Recently Intoxicated or Drunk Within the Last 30 days?: Yes Have you Ever Experienced Previous Episodes of Alcohol Withdrawal?: Yes Have you ever Experienced Withdrawal Seizures?: No Have you ever Experienced Delirium Tremens(DT)s?: Yes Have you ever undergone Alcohol Rehabilitation Treatment (i.e, inpt ot outpatient treatment programs)?: Yes Have you ever Experienced Blackouts?: No Have you ever Combined Alcohol with other Downers within the last 90 days?: No Have you ever Combined Alcohol with any other Substance of Abuse during the last 90 days?: No Positive Blood Alcohol level on Presentation? [PCS.BAL]: Yes Evidence of Increased Autonomic Activity (i.e. HR>120, tremor, sweating, agitation, nausea)?: Yes Result: 6 Time Spent with Patient Time Spent with Patient: 35-49 minutes Time was spent: preparing to see the patient(eg.review tests), obtaining and/or reviewing separately otained hiistory, ordering medications,tests, procedures, referring, communicating with other health urgent care physician, indepentently interpreting results, counseling the patient and care coordination
[2024-04-25] MEDS: hydroCHLOROthiazide 12.5 MG TAB PO (15:37)
[2024-04-25] MEDS: HYDROcodone 5/Acetaminophen 325 TAB PO ×2 (15:37→20:50)
[2024-04-25 16:05] VITALS: PULSE 76; RESP 5; O2SAT 95
[2024-04-25] MEDS: Albuterol/Ipratropium 3 ML UPD VIAL UPD (16:05)
--- NOTE | 2024-04-25 16:52 | CHAPLAIN ---
Pratima was sitting up at the edge of the bed when I visited. She was pleasant and easily engaged in a conversation. I explained my role and offered support.
[2024-04-25 19:04] VITALS: BP 172/94; PULSE 74; RESP 18; TEMP 36.9; O2SAT 95
[2024-04-25] MEDS: QUEtiapine 100 MG TAB 150 MG PO (21:23)
[2024-04-25] MEDS: traZODone 50 MG TAB 75 MG PO (21:23)
[2024-04-26 01:50] VITALS: PULSE 78; RESP 18; RESP 5; O2SAT 95
[2024-04-26] MEDS: Albuterol/Ipratropium 3 ML UPD VIAL UPD ×2 (01:50→09:13)
[2024-04-26 02:17] VITALS: PULSE 78; RESP 18; RESP 5; O2SAT 95
[2024-04-26 07:53] VITALS: BP 120/92; PULSE 69; RESP 18; TEMP 36.9; O2SAT 94
[2024-04-26] MEDS: Citalopram 20 MG TAB 40 MG PO (08:12)
[2024-04-26] MEDS: Doxepin 25 MG CAP PO (08:12)
[2024-04-26] MEDS: Ferrous Sulfate 325 MG TAB PO (08:12)
[2024-04-26] MEDS: Propranolol 20 MG TAB PO (08:12)
[2024-04-26] MEDS: hydroCHLOROthiazide 12.5 MG TAB PO (08:12)
[2024-04-26] MEDS: predniSONE 20 MG TAB 40 MG PO (08:12)
[2024-04-26] MEDS: Lisinopril 20 MG TAB PO (08:12)
[2024-04-26] MEDS: Normal Saline Flush 10 ML SYR IVP (08:13)
[2024-04-26] MEDS: Pantoprazole 40 MG TABCR PO (08:14)
--- NOTE | 2024-04-26 08:31 | PDOC.CMPRO ---
Date of service: 04/26/24 Time of Service: 08:32 Care Management Progress Note Progress Note Text Progress Note Text: Adrianne is admitted for COPD with hypoxia and is being closely monitored and treated with Solu Medrol and nebs, now prednisone and is no longer hypoxic. Phenobarb PRN per protocol is being used for ETOH withdrawal. Adrianne was offered a visit from the [facility], and was given resources on treatment programs, both inpatient and outpatient. She does not want inpatient tx and did not want the Poultry Scient[facility] today. CM let her know that the [facility] is available 12/09, and she can ask any of her team members to make that call for her. Discharge Potential Discharge Needs: PCP F/U Appt ( Is also followed by SONYA Zamarripa at [facility] (her PCP office)) Anticipated Barriers to Discharge: None Identified Patient/Family Education Needs: Review discharge instructions, discuss Ask Me Three Transportation: RCT Plan: Anticipate that Adrianne will be discharged home once medically stable with no new orders. She will continue per her plan of care and f/u with her PCP and the career portals teacher at her PCP office. Adrianne will f/u with [facility] and [facility], and hopefully [facility]. Adrianne will likely need an RCT ride. CM will continue to monitor and update the plan as needed. Social Determinants of Health Screening Social Determinants of Health last assessed: 04/26/24 Will the Patient Participate in the Screening?: Yes Do you worry about having a steady place to live?: yes What is your living situation today?: I have housing today, but am worried about losing it Problems where you live: smoke detectors missing or not working and Carbon monoxide detectors missing or not working In the past 12 months, have you had to go without electric, gas, oil or water in your home?: yes Have you or anyone in your house had to go without enough food to eat?: no Has lack of transportation kept you from medical appointments or from doing things needed for daily living?: no Has anyone in your life made you feel unsafe or unsupported?: no How hard is it for you to pay for the very basics like food, housing, medical care, and heating? Would you say it is:: Somewhat hard Do you want help finding or keeping work or a job?: I do not need or want help If for any reason you need help with day-to-day activities such as bathing, preparing meals, shopping, managing finances, etc., do you get the help you need?: I don?t need any help How often do you feel lonely or isolated from those around you?: Always Do you speak a language other than Nauruan at home?: No Health Related Social Needs Health related social needs: inadequate housing (Z59.1), housing instability, housed, with risk of homelessness (Z59.811), material hardship(utilities) (Z59.12), problems related to housing/economic circumstances (Z59.89) and feeling lonely/isolated (Z60.8)
[2024-04-26] MEDS: HYDROcodone 5/Acetaminophen 325 TAB PO (09:04)
[2024-04-26 09:13] VITALS: PULSE 77; RESP 16; RESP 9; O2SAT 97
--- NOTE | 2024-04-26 11:10 | W.PM.DS.N ---
Date of service: 04/26/24 Time of Service: 11:10 DS: Diagnosis Discharge Diagnosis (1) COPD with hypoxia: Status: Acute (2) Alcohol withdrawal syndrome: Status: Acute (3) Tobacco dependence: Status: Acute (4) Abdominal pain, chronic, left upper quadrant: Status: Acute (5) Chronic upper gastrointestinal bleeding: Status: Acute (6) Acute on chronic blood loss anemia: Status: Acute (7) Alcohol use disorder: (8) DVT prophylaxis: Status: Acute (9) HTN (hypertension), benign: Discharge Plan Disposition Patient Disposition: Home Condition: Stable Discharge Details Reason For Visit: hypoxia with COPD, alcohol withdrawal Admit Date/Time: 04/24/24 09:29 Admit Provider: Slava Garcia Attending Provider: Slava Garcia Primary Care Provider: Paula Barboza Hospital Course Hospital Course: 53 yo F with alcohol use disorder and daily drinking, smoker, chronic gastrointestinal bleeding without known cirrhosis, previous ruptured pancreatic pseudocyst who presented with recurrence of LUQ abdominal to flank pain. She was admitted 03/10- for LUQ pain that was attributed to a ruptured pancreatic pseudocyst. At that presentation she had a splenic hematoma so she was transferred to [facility], but was transferred back after the hematoma was deemed stable and not causing her symptoms. She was seen in the ED 03/22 for similar pain. She was seen 04/16 with the same LUQ pain associated with coffee ground emesis and black tarry stools. At both visits she had CT abd/pelvis that showed old rib fractures and stable to improved fluid collection around the pancreas. Her hemoglobins have been roughly stable despite ongoing GI bleeding, and she recently met with Dr. Lemus about outpatient EGD/colo. She returned today with recurrence of the same LUQ pain. Sharp, severe, in lower left chest to LUQ to her left flank and mid back. Hurts to breath deeply. She has not had fevers/chills. She has runny nose and some cough and sputum but these are chronic. She doesn't feel short of breath at rest, but does feel SOB with activity. She describes very small BMs every hour, which she relates to alcohol. There is bright red blood in stool per report. She last vomited yesterday, and this looked like coffee grounds. She does not feel dizzy, chest pain in her mid chest, or palpitations. She last drank last night before coming in at 3am. She drinks a fifth of vodka a day. She would like to quit drinking but is afraid of withdrawal. She has no h/o seizures but she has been drinking more than previously. While the pt was in the hospital, she was noted to have anemia. Pt will need outpatient work up at the discretion of the PCP. CXR noted and wnl. In reviewing old labs, pt was noted to have iron deficiency. Will send prescriptions Home Meds and New Rx's Prescriptions: New hydrocodone-acetaminophen 5-325 mg Tablet 1 tab PO Q4H PRN PRN (Reason: pain) Qty: 14 0RF prednisone 20 mg Tablet 20 mg PO DAILY Qty: 10 0RF Continued lisinopril 20 mg tablet 20 mg PO DAILY Qty: 90 3RF citalopram 40 mg tablet 40 mg PO DAILY Qty: 90 3RF propranolol 20 mg tablet 20 mg PO BID Qty: 180 1RF Spiriva Respimat 1.25 mcg/actuation mist 2 puff inhalation DAILY Qty: 4 12RF quetiapine 100 mg tablet See Rx Instructions .ROUTE .COMPLEX Qty: 135 0RF Dose Instruction: TAKE 1 & 1/2 TABLETS BY MOUTH AT BEDTIME DAILY Rx Instructions: TAKE 1 & 1/2 TABLETS BY MOUTH AT BEDTIME DAILY (DME) Hand Held Nebulizer See Rx Instructions .Route .MEDSUPPLY Qty: 1 0RF Rx Instructions: As directed albuterol sulfate 2.5 mg /3 mL (0.083 %) solution for nebulization 2.5 mg inhalation Q4H PRN (Reason: shortness of breath or wheezing) Qty: 180 3RF hydroxyzine HCl 25 mg tablet 25 mg PO TID PRN (Reason: anxiety) Qty: 180 1RF clobetasol-emollient 15 GM cream 1 applic Topical DAILY PRNQty: 60 Rx Instructions: Apply to hands PRN (DME) POCKET CHAMBER Spacer See Rx Instructions .ROUTE .MEDSUPPLY Qty: 1 0RF Rx Instructions: As directed doxepin 25 mg capsule See Rx Instructions .ROUTE .COMPLEX Qty: 60 5RF Dose Instruction: TAKE ONE CAPSULE BY MOUTH TWICE A DAY Rx Instructions: TAKE ONE CAPSULE BY MOUTH TWICE A DAY albuterol sulfate [Ventolin HFA] 90 mcg/actuation HFA aerosol inhaler See Rx Instructions .ROUTE .COMPLEX Qty: 18 12RF Dose Instruction: INHALE TWO PUFFS BY MOUTH EVERY 4 HOURS NEEDED Rx Instructions: INHALE TWO PUFFS BY MOUTH EVERY 4 HOURS NEEDED trazodone 50 mg tablet See Rx Instructions .ROUTE .COMPLEX Qty: 135 1RF Dose Instruction: TAKE 1 & 1/2 TABLETS BY MOUTH DAILY AT BEDTIME NEEDED FOR SLEEP Rx Instructions: TAKE 1 & 1/2 TABLETS BY MOUTH DAILY AT BEDTIME NEEDED FOR SLEEP cyanocobalamin (vitamin B-12) [Vitamin B-12] 500 mcg Tablet 500 mcg PO DAILY Qty: 30 0RF docusate sodium [Colace] 100 mg Capsule 100 mg PO BID Qty: 60 0RF ferrous sulfate 325 mg (65 mg iron) Tablet 325 mg PO DAILY Qty: 30 0RF folic acid 1 mg Tablet 1 mg PO DAILY Qty: 30 0RF thiamine mononitrate (vit B1) [Vitamin B-1 (mononitrate)] 100 mg Tablet 100 mg PO DAILY Qty: 30 0RF pantoprazole [Protonix] 40 mg tablet,delayed release (DR/EC) 40 mg PO DAILY Qty: 30 0RF polyethylene glycol 3350 [Miralax] 17 gram/dose powder 17 g PO .Nightly Qty: 510 0RF bisacodyl 10 mg suppository 10 mg [place] DAILY PRN (Reason: constipation lobger than 48 hours) Qty: 12 0RF (DME) nebulizers Misc See Rx Instructions .ROUTE .MEDSUPPLY Qty: 1 0RF Rx Instructions: As directed Discharge Instructions Referrals: Paula Barboza NP [Primary Care Provider] - 05/09/24 4:30 pm Activity:: Activity as Tolerated Equipment/Supplies:: No Equipment Needed Diet:: As Tolerated Discharge Orders Discharge Orders: Discharge Order (Routine); Ordered 04/26/24 Ordered By: Elio Gregg DS: Summary Time Spent with Patient providing and/or coordinating discharge services: Greater than 30 minutes Status at Discharge Functional status at discharge: independent ambulation Overall status at discharge: patient is back to baseline Mental Status: mental status grossly normal Speech and Movement: speech and movement normal Mood: congruent mood Affect: normal affect Quality:SDOH Health Related Social Needs: Health related social needs inadequate housing (Z59.1), housing instability, housed, with risk of homelessness (Z59.811), material hardship(utilities) (Z59.12), problems related to housing/economic circumstances (Z59.89), feeling lonely/isolated (Z60.8) Exam Narrative Exam Narrative: GEN: Alert and oriented x 4, NAD, less anxious. LUNGS: Diffuse rhonchorous breath sounds, no rales, normal effort CV: RRR with no murmurs, gallops, or rubs. EXT: no cyanosis, clubbing, or edema NEURO: Normal speech and coordination. no tremor PSYCH: anxious mood and affect, normal thought process Psych Mental Status: mental status grossly normal Speech and Movement: speech and movement normal Mood: congruent mood Affect: normal affect DS: Data Vitals/I&O Vitals and I&O: Vital Signs Temperature 36.9 C 04/26/24 07:53 Temperature Source Temporal Artery Scan 04/26/24 07:53 Pulse 77 04/26/24 09:13 Pulse 108 H 04/24/24 11:16 Respiratory Rate 16 04/26/24 09:13 Respiratory Effort Normal 04/24/24 11:57 Respiratory Depth Shallow 04/24/24 11:57 Respiratory Pattern Tachypnea 04/24/24 11:57 Blood Pressure 120/92 H 04/26/24 07:53 Blood Pressure Mean 87 04/24/24 11:16 Blood Pressure Position Sitting 04/24/24 03:02 Pulse Oximetry 97 04/26/24 09:13 Oxygen Delivery Method Room Air 04/26/24 09:13 Oxygen Flow Rate 0 04/26/24 09:13 Pain Level 7 04/26/24 09:30 Comment pt refused bp, she allowed other vitals 04/25/24 03:00 Intake & Output 04/25/24 04/25/24 04/26/24 11:59 23:59 11:59 Intake Total 1000 / 2480 1480 / 2480 300 / 300 Output Total 1724 Balance -725 / 455 1180 / 455 300 / 300 Weight 80.649 kg 81.5 kg Intake: IV 1000 / 1999 1000 / 2000 Oral 480 / 480 300 / 300 Output: Urine 1724 Other: Urine Color Yellow Yellow Urine Appearance Clear Clear Urine Odor Normal None Comment pT stated they had voided PFSH All Active Problems (Updated 04/24/24 @ 10:44 by Slava Garcia) DVT prophylaxis (Acute) Alcohol withdrawal syndrome (Acute) Acute hypoxemic respiratory failure (Acute) Acute on chronic blood loss anemia (Acute) COPD with hypoxia (Acute) Fracture of rib of left side (Acute) Abdominal pain, chronic, left upper quadrant (Acute) Acute exacerbation of chronic obstructive pulmonary disease (COPD) (Acute) Alcohol intoxication in active alcoholic (Acute) Alcohol intoxication (Acute) Alcoholic gastritis without bleeding (Acute) Chronic upper gastrointestinal bleeding (Acute) Cyst and pseudocyst of pancreas (Acute) Alcohol abuse (Chronic) Heavy menses (Acute) Encounter for screening colonoscopy (Acute) Anemia (Chronic) Anxiety (Chronic) DUB (dysfunctional uterine bleeding) (Acute) Impaired fasting blood sugar (Acute 08/01/05) Obesity, unspecified (Acute 05/31/11) Atypical squamous cells of undetermined significance (ASC-US) on cervical Pap smear (Acute 08/05/09) ASCUS 08/05/09; 05/31/2011 Spinal stenosis of lumbar region (Acute 01/11/10) LS spine surg; Dr Sebastian Walker Tobacco dependence (Acute 08/01/05) Medical History COPD (chronic obstructive pulmonary disease) Alcohol use disorder Anemia HTN (hypertension), benign Chronic pain (02/20/09) chronic tramadol rx, back pain, sciatica despite LS surg 2009. Depression (04/03/15) Sertaline in the past with good relief of sx but then developed intolerable adverse rxns (nausea, flushing) Started on venlafaxine 03/2015 PHQ9 score = 9, indicating mild depression 03/2015 Spinal stenosis Lumbar region Surgical History Internal injury, spleen, closed with IR embolization Back surgery L5-S1 decompression 2009 Family History Mother , lung cancer at age 50. No problems noted. Father , MVA No problems noted. Other Lung cancer Social History Smoking/Tobacco Use Status: Current every day Tobacco Type: cigarettes Smoking risk assessment performed?: Yes Alcohol Intake: current Alcohol Intake frequency: 3 or more drinks per day Alcohol type: beer and hard liquor Drug use: Never Substance use type: does not use Housing: other Do you feel safe at home: Yes Do you feel safe in your relationship?: Yes Time Spent with Patient Time Spent with Patient: 45-69 minutes Time was spent: preparing to see the patient(eg.review tests), obtaining and/or reviewing separately otained hiistory, ordering medications,tests, procedures, referring, communicating with other health foster care worker, indepentently interpreting results, counseling the patient and care coordination
[2024-04-26 11:12] VITALS: BP 160/97; PULSE 74; RESP 18; TEMP 36.5; O2SAT 97
--- NOTE | 2024-04-26 11:37 | CMDISCH_ITS ---
Date of service: 04/26/24 Time of Service: 11:37 LACE Index Scoring Tool Questions: Length of Stay (in days): 2 Was the patient admitted via the E.D.?: Yes Comorbidities: Chronic Pulmonary Disease E.D. Visits: 7 Answers: Total Score: 11 Risk of Readmission: High Risk Care Management Discharge Plan Reason for Hospitalization: Hypoxia with COPD, ETOH Withdrawal Discharge Plan: Discharge home via RCT shuttle. No new services are indicated prior to discharge and last dose letter provided. Follow up with PCP and discharge plan of care as directed. Patient/Family Education Needs: Review discharge instructions and plan to follow up after discharge. Discuss ask me three. Services Needed at Discharge: Transportation (Adrianne is staying at the [facility], direct drop off is coordinated by CM) SDOH Health Related Social Needs: Health related social needs housing instability, house d, with risk of homelessness (Z59.811), food insecurity (Z59.41), problems related to housing/economic circumstances (Z59.89), problems finding work (Z56.9)
== END 2024-04-26 13:28 | disposition home or self-care (01) | DRG 190 ==
LOC: ER 07:29 → MS 11:40
PROVIDERS: Admitting Provider Family Medicine; Emergency Provider Emergency Medicine Emergency Medical Services; PCP Nurse Practitioner; Responsible Provider Family Medicine; Visit Provider Family Medicine
DX: J44.1 Chronic obstructive pulmonary disease with (acute) exacerbation (principal); J96.01 Acute respiratory failure with hypoxia; K29.21 Alcoholic gastritis with bleeding; D62 Acute posthemorrhagic anemia; Z59.811 Housing instability, housed, with risk of homelessness; Z59.12 Inadequate housing utilities; F10.139 Alcohol abuse with withdrawal, unspecified; F17.210 Nicotine dependence, cigarettes, uncomplicated; R10.12 Left upper quadrant pain; G89.29 Other chronic pain; I10 Essential (primary) hypertension; Y90.8 Blood alcohol level of 240 mg/100 ml or more; Z60.8 Other problems related to social environment; Z59.89 Other problems related to housing and economic circumstances; F10.129 Alcohol abuse with intoxication, unspecified; E66.9 Obesity, unspecified; F41.9 Anxiety disorder, unspecified; M48.061 Spinal stenosis, lumbar region without neurogenic claudication; Z68.31 Body mass index [BMI] 31.0-31.9, adult
CPT/HCPCS: 00123; 36415; 80053; 82805; 83690; 85027; 86850; 86900; 86901; 93005; 94640; 96365; 96367; 96375; 99285; 71045; 80320; 81003; 81015; 83735; 84484; 85014; 85018; 85025; 85610; 93010; 94760; 99223; 99232; 99239; J1790; J2270; J2470; J2560; J2919; J3010; J3411; J3475; J7512; J7620

== ENCOUNTER 2024-06-17 18:09 | Emergency (ER) | payer MEDICAID, SELFPAY ==
[2024-06-17 17:57] VITALS: BP 114/87; PULSE 102; RESP 24; TEMP 36.9; O2SAT 100
[2024-06-17 19:19] VITALS: BP 97/73; RESP 20; O2SAT 99
[2024-06-17 21:09] VITALS: BP 103/67; PULSE 92; RESP 20; O2SAT 92
--- NOTE | 2024-06-17 22:32 | ED.GENADUL_ITS ---
Discharge Plan Disposition Patient Disposition: [facility] Condition: Stable Discharge Details Clinical Impression: Alcohol abuse Primary Care Provider: Paula Barboza ED Provider: Christopher Aguiar [place] Meds and New Rx's Prescriptions: Continued lisinopril 20 mg tablet 20 mg PO DAILY Qty: 90 3RF citalopram 40 mg tablet 40 mg PO DAILY Qty: 90 3RF propranolol 20 mg tablet 20 mg PO BID Qty: 180 1RF Spiriva Respimat 1.25 mcg/actuation mist 2 puff inhalation DAILY Qty: 4 12RF (DME) Hand Held Nebulizer See Rx Instructions .Route .MEDSUPPLY Qty: 1 0RF Rx Instructions: As directed albuterol sulfate 2.5 mg /3 mL (0.083 %) solution for nebulization 2.5 mg inhalation Q4H PRN (Reason: shortness of breath or wheezing) Qty: 180 3RF hydroxyzine HCl 25 mg tablet 25 mg PO TID PRN (Reason: anxiety) Qty: 180 1RF clobetasol-emollient 15 GM cream 1 applic Topical DAILY PRNQty: 60 Rx Instructions: Apply to hands PRN (DME) POCKET CHAMBER Spacer See Rx Instructions .ROUTE .MEDSUPPLY Qty: 1 0RF Rx Instructions: As directed doxepin 25 mg capsule See Rx Instructions .ROUTE .COMPLEX Qty: 60 5RF Dose Instruction: TAKE ONE CAPSULE BY MOUTH TWICE A DAY Rx Instructions: TAKE ONE CAPSULE BY MOUTH TWICE A DAY albuterol sulfate [Ventolin HFA] 90 mcg/actuation HFA aerosol inhaler See Rx Instructions .ROUTE .COMPLEX Qty: 18 12RF Dose Instruction: INHALE TWO PUFFS BY MOUTH EVERY 4 HOURS NEEDED Rx Instructions: INHALE TWO PUFFS BY MOUTH EVERY 4 HOURS NEEDED trazodone 50 mg tablet See Rx Instructions .ROUTE .COMPLEX Qty: 135 1RF Dose Instruction: TAKE 1 & 1/2 TABLETS BY MOUTH DAILY AT BEDTIME NEEDED FOR SLEEP Rx Instructions: TAKE 1 & 1/2 TABLETS BY MOUTH DAILY AT BEDTIME NEEDED FOR SLEEP quetiapine 100 mg tablet See Rx Instructions .ROUTE .COMPLEX Qty: 135 0RF Dose Instruction: TAKE 1 & 1/2 TABLETS BY MOUTH AT BEDTIME DAILY Rx Instructions: TAKE 1 & 1/2 TABLETS BY MOUTH AT BEDTIME DAILY cyanocobalamin (vitamin B-12) [Vitamin B-12] 500 mcg Tablet 500 mcg PO DAILY Qty: 30 0RF docusate sodium [Colace] 100 mg Capsule 100 mg PO BID Qty: 60 0RF ferrous sulfate 325 mg (65 mg iron) Tablet 325 mg PO DAILY Qty: 30 0RF folic acid 1 mg Tablet 1 mg PO DAILY Qty: 30 0RF thiamine mononitrate (vit B1) [Vitamin B-1 (mononitrate)] 100 mg Tablet 100 mg PO DAILY Qty: 30 0RF pantoprazole [Protonix] 40 mg tablet,delayed release (DR/EC) 40 mg PO DAILY Qty: 30 0RF polyethylene glycol 3350 [Miralax] 17 gram/dose powder 17 g PO .Nightly Qty: 510 0RF bisacodyl 10 mg suppository 10 mg HI DAILY PRN (Reason: constipation lobger than 48 hours) Qty: 12 0RF (DME) nebulizers Misc See Rx Instructions .ROUTE .MEDSUPPLY Qty: 1 0RF Rx Instructions: As directed hydrocodone-acetaminophen 5-325 mg Tablet 1 tab PO Q4H PRN PRN (Reason: pain) Qty: 14 0RF prednisone 20 mg Tablet 20 mg PO DAILY Qty: 10 0RF Discharge Instructions Additional Instructions: Please limit alcohol use to 1-2 drinks per day. Follow-up with your primary care provider within 1 to 2 weeks. If you feel significantly more ill or feel you are suffering from emergent medical process return to the emergency department for reevaluation HPI General Mode of arrival: EMS . Date/Time Provider Initiated Documentation: 06/17/24 22:27 . Limitations to Documentation: no limitations . Information obtained by: patient . History of Present Illness 53 year old F pr esents to the emergency department with the chief complaint of alcohol intoxication, described as moderate, Patient started experiencing this day(s) (1) and it has been constant. No relieving factors improve symptom(s), No exacerbating factors reported . Patient notes no other symptoms.. Patient did receive the following treatments prior to arrival, none Related Data Home Medications ?Medication ?Instructions ?Recorded ?Confirmed clobetasol-emollient 0.05 % 1 applic topical DAILY PRN #60 12/08/16 06/17/24 topical cream grams inhalational spacing device #1 ea 09/28/20 06/17/24 (POCKET CHAMBER spacer) nebulizers #1 ea 03/16/21 06/17/24 albuterol sulfate 2.5 mg/3 mL 2.5 mg (3 mL) inhalation Q4H PRN 01/10/23 06/17/24 (0.083 %) solution for nebulization shortness of breath or wheezing #180 mL hydroxyzine HCl 25 mg tablet 25 mg PO TID PRN anxiety #180 tabs 01/10/23 06/17/24 Hand Held Nebulizer #1 ea 11/27/23 06/17/24 citalopram 40 mg tablet 40 mg PO DAILY #90 tabs 11/27/23 06/17/24 lisinopril 20 mg tablet 20 mg PO DAILY #90 tab-caps 11/27/23 06/17/24 propranolol 20 mg tablet 20 mg PO BID #180 tabs 11/27/23 06/17/24 tiotropium bromide 1.25 2 puff inhalation DAILY #4 grams 11/27/23 06/17/24 mcg/actuation mist for inhalation (Spiriva Respimat) albuterol sulfate 90 mcg/actuation See Rx Instructions .Route 01/22/24 06/17/24 aerosol inhaler (Ventolin HFA) .COMPLEX #18 grams doxepin 25 mg capsule See Rx Instructions .Route 01/22/24 06/17/24 .COMPLEX #60 caps trazodone 50 mg tablet See Rx Instructions .Route 01/22/24 06/17/24 .COMPLEX #135 tabs cyanocobalamin (vitamin B-12) 500 500 mcg PO DAILY #30 tabs 03/13/24 06/17/24 mcg tablet (Vitamin B-12) docusate sodium 100 mg capsule 100 mg PO BID #60 caps 03/13/24 06/17/24 (Colace) ferrous sulfate 325 mg (65 mg 325 mg PO DAILY #30 tabs 03/13/24 06/17/24 iron) tablet folic acid 1 mg tablet 1 mg PO DAILY #30 tabs 03/13/24 06/17/24 pantoprazole 40 mg tablet,delayed 40 mg PO DAILY #30 tabs 03/13/24 06/17/24 release (Protonix) thiamine mononitrate (vit B1) 100 100 mg PO DAILY #30 tabs 03/13/24 06/17/24 mg tablet (Vitamin B-1 (mononitrate)) bisacodyl 10 mg rectal suppository 10 mg HI DAILY PRN constipation 03/22/24 06/17/24 lobger than 48 hours #12 ea polyethylene glycol 3350 17 17 g PO .Nightly #510 grams 03/22/24 06/17/24 gram/dose oral powder (Miralax) hydrocodone 5 mg-acetaminophen 325 1 tab PO Q4H PRN PRN pain #14 tabs 04/26/24 06/17/24 mg tablet prednisone 20 mg tablet 20 mg PO DAILY #10 tabs 04/26/24 06/17/24 quetiapine 100 mg tablet See Rx Instructions .Route 06/03/24 06/17/24 .COMPLEX #135 tabs Previous Rx's ?Medication ?Instructions ?Recorded inhalational spacing device #1 ea 09/28/20 (POCKET CHAMBER spacer) nebulizers #1 ea 03/16/21 albuterol sulfate 2.5 mg/3 mL 2.5 mg (3 mL) inhalation Q4H PRN 01/10/23 (0.083 %) solution for nebulization shortness of breath or wheezing #180 mL hydroxyzine HCl 25 mg tablet 25 mg PO TID PRN anxiety #180 tabs 01/10/23 Hand Held Nebulizer #1 ea 11/27/23 citalopram 40 mg tablet 40 mg PO DAILY #90 tabs 11/27/23 lisinopril 20 mg tablet 20 mg PO DAILY #90 tab-caps 11/27/23 propranolol 20 mg tablet 20 mg PO BID #180 tabs 11/27/23 tiotropium bromide 1.25 2 puff inhalation DAILY #4 grams 11/27/23 mcg/actuation mist for inhalation (Spiriva Respimat) albuterol sulfate 90 mcg/actuation See Rx Instructions .Route 01/22/24 aerosol inhaler (Ventolin HFA) .COMPLEX #18 grams doxepin 25 mg capsule See Rx Instructions .Route 01/22/24 .COMPLEX #60 caps trazodone 50 mg tablet See Rx Instructions .Route 01/22/24 .COMPLEX #135 tabs cyanocobalamin (vitamin B-12) 500 500 mcg PO DAILY #30 tabs 03/13/24 mcg tablet (Vitamin B-12) docusate sodium 100 mg capsule 100 mg PO BID #60 caps 03/13/24 (Colace) ferrous sulfate 325 mg (65 mg 325 mg PO DAILY #30 tabs 03/13/24 iron) tablet folic acid 1 mg tablet 1 mg PO DAILY #30 tabs 03/13/24 pantoprazole 40 mg tablet,delayed 40 mg PO DAILY #30 tabs 03/13/24 release (Protonix) thiamine mononitrate (vit B1) 100 100 mg PO DAILY #30 tabs 03/13/24 mg tablet (Vitamin B-1 (mononitrate)) bisacodyl 10 mg rectal suppository 10 mg HI DAILY PRN constipation 03/22/24 lobger than 48 hours #12 ea polyethylene glycol 3350 17 17 g PO .Nightly #510 grams 03/22/24 gram/dose oral powder (Miralax) hydrocodone 5 mg-acetaminophen 325 1 tab PO Q4H PRN PRN pain #14 tabs 04/26/24 mg tablet prednisone 20 mg tablet 20 mg PO DAILY #10 tabs 04/26/24 quetiapine 100 mg tablet See Rx Instructions .Route 06/03/24 .COMPLEX #135 tabs Allergies Allergy/AdvReac Type Severity Reaction Status Date / Time hydromorphone (From Dilaudid) Allergy Severe Itching Verified 06/17/24 18:03 oxycodone AdvReac Unknown TERRIBLE Verified 06/17/24 18:03 DREAMS General Stated Complaint: ETOHWithdr ALISTAIR: 4 Review of Systems All systems reviewed & are unremarkable except as noted in HPI and below Constitutional Constitutional: Denies chills, Denies fever(s) and Denies weakness Eyes Eyes: Denies loss of vision ENT Ears, Nose, Mouth, and Throat: Denies change in voice Cardiovascular Cardiovascular: Denies chest pain and Denies dyspnea Respiratory Respiratory: Denies cough and Denies dyspnea Gastrointestinal Gastrointestinal: Denies abdominal pain, Denies nausea and Denies vomiting Neurologic Neurologic: Denies loss of vision and Denies weakness Exam Const General: no acute distress Orientation: alert HENNV Head: normal to inspection Ears: external ears normal General nose exam: external nose normal Mouth: moist mucous membranes Eyes General: appearance normal, both eyes and all related structures Neck Neck: normal visual inspection Resp Effort & Inspection: normal respiratory effort and able to speak in complete sentences Cardio Rate: regular rate GI Palpation: soft and nontender Skin General skin exam: no rashes or lesions noted Neuro General: patient alert and patient oriented x3 Extrem General: normal to inspection Psych Mental Status: mental status grossly normal Course Vital Signs Vital signs: Vital Signs Temperature 36.9 C 06/17/24 17:57 Pulse 102 H 06/17/24 17:57 Respiratory Rate 24 06/17/24 17:57 Blood Pressure 114/87 06/17/24 17:57 Pulse Oximetry 100 06/17/24 17:57 Temperature 36.9 C 06/17/24 17:57 Pulse 92 H 06/17/24 21:09 Pulse Rhythm Regular 06/17/24 21:09 Pulse Strength Normal 06/17/24 21:09 Respiratory Rate 20 06/17/24 21:09 Respiratory Effort Normal 06/17/24 21:09 Respiratory Depth Normal 06/17/24 21:09 Respiratory Pattern Normal 06/17/24 21:09 Blood Pressure 103/67 06/17/24 21:09 Blood Pressure Mean 79 06/17/24 21:09 Blood Pressure Position Sitting 06/17/24 21:09 Pulse Oximetry 92 06/17/24 21:09 Oxygen Delivery Method Room Air 06/17/24 21:09 Oxygen Flow Rate 0 06/17/24 21:09 Medical Decision Making 53-year-old female with a history of alcohol abuse comes in after she was drinking alcohol most of the day. She was sleeping in her car and bystanders called EMS and PD arrived on scene first and knocked on the window and she woke easily and she was sent here for an evaluation as she did not want to go to holding cell with PD for being intoxicated. She waited in the waiting room for 3 to 4 hours due to high volumes in the ER. She is currently still slurring her words and has a smell of alcohol on her breath. She is alert and oriented x 4. She denies any headaches, chest pain, difficulty breathing. She says she otherwise feels well. She denies any other drug use. She has no signs of trauma to head and moving all extremities well. I do not feel any labs or imaging are indicated. She is agreeable to go to the correction holding still until she is clinically sober. Quality:[facility] Health Related Social Needs: Health related social needs housing instability, house d, with risk of homelessness (Z59.811), food insecurity (Z59.41), problems related to housing/economic circumstances (Z59.89), problems finding work (Z56.9) [facility] All Active Problems (Updated 05/17/24 @ 00:02 by BALTAZAR MASCORRO) Alcohol withdrawal syndrome (Acute) Acute hypoxemic respiratory failure (Acute) Acute on chronic blood loss anemia (Acute) COPD with hypoxia (Acute) Fracture of rib of left side (Acute) Abdominal pain, chronic, left upper quadrant (Acute) Acute exacerbation of chronic obstructive pulmonary disease (COPD) (Acute) Alcohol intoxication in active alcoholic (Acute) Alcohol intoxication (Acute) Alcoholic gastritis without bleeding (Acute) Chronic upper gastrointestinal bleeding (Acute) Cyst and pseudocyst of pancreas (Acute) Alcohol abuse (Chronic) Heavy menses (Acute) Encounter for screening colonoscopy (Acute) Anemia (Chronic) Anxiety (Chronic) DUB (dysfunctional uterine bleeding) (Acute) Impaired fasting blood sugar (Acute 08/01/05) Obesity, unspecified (Acute 05/31/11) Atypical squamous cells of undetermined significance (ASC-US) on cervical Pap smear (Acute 08/05/09) ASCUS 08/05/09; 05/31/2011 Spinal stenosis of lumbar region (Acute 01/11/10) LS spine surg; Dr Sebastian Walker Tobacco dependence (Acute 08/01/05) Medical History COPD (chronic obstructive pulmonary disease) Alcohol use disorder Anemia HTN (hypertension), benign Chronic pain (02/20/09) chronic tramadol rx, back pain, sciatica despite LS surg 2009. Depression (04/03/15) Sertaline in the past with good relief of sx but then developed intolerable adverse rxns (nausea, flushing) Started on venlafaxine 03/2015 PHQ9 score = 9, indicating mild depression 03/2015 Spinal stenosis Lumbar region Surgical History Internal injury, spleen, closed with IR embolization Back surgery L5-S1 decompression 2009 Family History Mother , lung cancer at age 50. No problems noted. Father , MVA No problems noted. Other Lung cancer Social History Smoking/Tobacco Use Status: Current every day Tobacco Type: cigarettes Smoking risk assessment performed?: Yes Alcohol Intake: current Alcohol Intake frequency: 3 or more drinks per day Alcohol type: beer and hard liquor Drug use: Never Substance use type: does not use Housing: other Do you feel safe at home: Yes Do you feel safe in your relationship?: Yes PAWSS Have you Been Recently Intoxicated or Drunk Within the Last 30 days?: Yes Have you Ever Experienced Previous Episodes of Alcohol Withdrawal?: Yes Have you ever Experienced Withdrawal Seizures?: No Have you ever Experienced Delirium Tremens(DT)s?: Yes Have you ever undergone Alcohol Rehabilitation Treatment (i.e, inpt ot outpatient treatment programs)?: Yes Have you ever Experienced Blackouts?: Yes Have you ever Combined Alcohol with other Downers within the last 90 days?: No Have you ever Combined Alcohol with any other Substance of Abuse during the last 90 days?: No Result: 5
[2024-06-18 00:02] VITALS: BP 110/64; PULSE 88; RESP 16; O2SAT 98
== END 2024-06-18 00:06 ==
PROVIDERS: Emergency Provider Emergency Medicine; PCP Nurse Practitioner
DX: F10.120 Alcohol abuse with intoxication, uncomplicated (principal); Z59.811 Housing instability, housed, with risk of homelessness; Z59.41 Food insecurity; Z59.89 Other problems related to housing and economic circumstances; Z56.9 Unspecified problems related to employment
CPT/HCPCS: 99283 ×2

== ENCOUNTER 2024-07-05 20:32 | Emergency (ER) | payer MEDICAID, SELFPAY ==
[2024-07-05] VITALS (8 sets, daily range): BP systolic 130–139; BP diastolic 68–80; PULSE 88–106; RESP 20; TEMP 36.7–36.9; O2SAT 92–98
--- NOTE | 2024-07-05 21:00 | DI.CT_ITS ---
Exam(s) CT ABDOMEN PELVIS W EXAM: CT ABDOMEN PELVIS W CLINICAL HISTORY: left flank pain, prior splenic rupture TECHNIQUE: Imaging Protocol: Axial computed tomography images with coronal and sagittal reformatted images were created and reviewed. CONTRAST MATERIAL: Intravenous: Omnipaque 350 Contrast volume:75 mL Oral: No COMPARISON: CT CT ABDOMEN PELVIS W from 03/10/[address] ABDOMEN PELVIS W from 03/22/[address] ABDOMEN PELVIS WO from 04/16/2024 FINDINGS: ABDOMEN: Lung Bases: No acute abnormality. Liver: There is decreased attenuation of the liver suggesting fatty infiltration. No measurable mass . Portal, Superior Mesenteric, and Splenic Veins: There is again seen prior embolization of the spleen. The portal and superior mesenteric veins are unremarkable. Gallbladder and Biliary Tract: No radiodense calculus or dilation. Pancreas: Normal density, no abnormal calcifications or inflammatory process. Spleen: There is heterogeneous enhancement of the spleen consistent with prior splenic injury. The f indings are unchanged. There is a stable perisplenic fluid collection extending to the tail of the p ancreas. Adrenals: No masses seen. Kidneys: Normal size, contour and axis. No radiodense stones or obstructive uropathy. No masses seen. Abdominal Aorta: Abdominal portion non-dilated. Atherosclerotic calcifications are present. Bowel: No obstruction or bowel wall thickening. Appendix is unremarkable. Peritoneal Cavity: No ascites, collection or mesenteric inflammatory response. No free air. Lymph Nodes: Within normal limits. Bones: Within normal limits for the patient's age. Old bilateral rib fracture deformities. Soft Tissues: Unremarkable. PELVIS: Bladder: Symmetric distention, no gross wall thickening. Reproductive Organs: There are calcified uterine fibroids including an exophytic uterine fibroid. Lymph Nodes: Within normal limits. Bones: Within normal limits for the patient's age. IMPRESSION: 1. No acute abdominal or pelvic process. 2. Findings of old splenic injury and the stable perisplenic fluid collection. 3. The preliminary [facility] report was reviewed. RADIATION DOSE DELIVERED: 543.47mGy.cm Total DLP DATA REPOSITORY: All CT scans at this facility are submitted to the National Radiology Data Registry (NRDR) Dose Index Registry (DIR) with the [employer] (A[employer]). RADIATION OPTIMIZATION: All CT scans at this facility use at least one of these dose optimization te chniques: automated exposure control; mA and/or kV adjustment per patient size (includes targeted exa ms where dose is matched to clinical indication); or iterative reconstruction.
--- NOTE | 2024-07-05 21:22 | W.ED.GENAD ---
Discharge Plan Discharge Details Chief Complaint: GenMedical Primary Care Provider: Paula Barboza ED Provider: Olman Nunez Home Meds and New Rx's Prescriptions: No Action lisinopril 20 mg tablet 20 mg PO DAILY Qty: 90 3RF citalopram 40 mg tablet 40 mg PO DAILY Qty: 90 3RF Spiriva Respimat 1.25 mcg/actuation mist 2 puff inhalation DAILY Qty: 4 12RF albuterol sulfate [Ventolin HFA] 90 mcg/actuation HFA aerosol inhaler See Rx Instructions .ROUTE .COMPLEX Qty: 18 12RF Dose Instruction: INHALE TWO PUFFS BY MOUTH EVERY 4 HOURS NEEDED Rx Instructions: INHALE TWO PUFFS BY MOUTH EVERY 4 HOURS NEEDED ferrous sulfate 325 mg (65 mg iron) tablet 325 mg PO DAILY Qty: 30 0RF folic acid 1 mg tablet 1 mg PO DAILY Qty: 30 0RF hydroxyzine HCl 25 mg tablet 25 mg PO TID PRN (Reason: anxiety) Qty: 180 1RF pantoprazole [Protonix] 40 mg tablet,delayed release (DR/EC) 40 mg PO DAILY Qty: 30 0RF thiamine mononitrate (vit B1) [Vitamin B-1 (mononitrate)] 100 mg tablet 100 mg PO DAILY Qty: 30 0RF (DME) Hand Held Nebulizer See Rx Instructions .Route .MEDSUPPLY Qty: 1 0RF Rx Instructions: As directed albuterol sulfate 2.5 mg /3 mL (0.083 %) solution for nebulization 2.5 mg inhalation Q4H PRN (Reason: shortness of breath or wheezing) Qty: 180 3RF clobetasol-emollient 15 GM cream 1 applic Topical DAILY PRNQty: 60 Rx Instructions: Apply to hands PRN (DME) POCKET CHAMBER Spacer See Rx Instructions .ROUTE .MEDSUPPLY Qty: 1 0RF Rx Instructions: As directed doxepin 25 mg capsule See Rx Instructions .ROUTE .COMPLEX Qty: 60 5RF Dose Instruction: TAKE ONE CAPSULE BY MOUTH TWICE A DAY Rx Instructions: TAKE ONE CAPSULE BY MOUTH TWICE A DAY quetiapine 100 mg tablet See Rx Instructions .ROUTE .COMPLEX Qty: 135 0RF Dose Instruction: TAKE 1 & 1/2 TABLETS BY MOUTH AT BEDTIME DAILY Rx Instructions: TAKE 1 & 1/2 TABLETS BY MOUTH AT BEDTIME DAILY trazodone 50 mg tablet See Rx Instructions .ROUTE .COMPLEX Qty: 135 1RF Dose Instruction: TAKE 1 & 1/2 TABLETS BY MOUTH DAILY AT BEDTIME NEEDED FOR SLEEP Rx Instructions: TAKE 1 & 1/2 TABLETS BY MOUTH DAILY AT BEDTIME NEEDED FOR SLEEP cyanocobalamin (vitamin B-12) [Vitamin B-12] 500 mcg Tablet 500 mcg PO DAILY Qty: 30 0RF docusate sodium [Colace] 100 mg Capsule 100 mg PO BID Qty: 60 0RF polyethylene glycol 3350 [Miralax] 17 gram/dose powder 17 g PO .Nightly Qty: 510 0RF bisacodyl 10 mg suppository 10 mg [place] DAILY PRN (Reason: constipation lobger than 48 hours) Qty: 12 0RF (DME) nebulizers Misc See Rx Instructions .ROUTE .MEDSUPPLY Qty: 1 0RF Rx Instructions: As directed HPI General Date/Time Provider Initiated Documentation: 07/05/24 20:43. Limitations to Documentation: altered mental status. Information obtained by: patient. HPI Narrative: 53-year-old female with multiple medical problems including history of COPD, alcohol use disorder, presents today with law enforcement with complaint of left flank pain. Patient was taken into custody for DUI. She notes severe left flank pain. She states that she has had intermittent left flank pain over the past few months. Pain today has been present for the past few hours. She does state that she has a history of splenic rupture requiring intravascular procedure in June 2022. No recent trauma. Patient does acknowledge drinking alcohol tonight. Related Data Home Medications ?Medication ?Instructions ?Recorded ?Confirmed clobetasol-emollient 0.05 % 1 applic topical DAILY PRN #60 12/08/16 07/05/24 topical cream grams inhalational spacing device #1 ea 09/28/20 07/05/24 (POCKET CHAMBER spacer) nebulizers #1 ea 03/16/21 07/05/24 albuterol sulfate 2.5 mg/3 mL 2.5 mg (3 mL) inhalation Q4H PRN 01/10/23 07/05/24 (0.083 %) solution for nebulization shortness of breath or wheezing #180 mL citalopram 40 mg tablet 40 mg PO DAILY #90 tabs 11/27/23 07/05/24 lisinopril 20 mg tablet 20 mg PO DAILY #90 tab-caps 11/27/23 07/05/24 tiotropium bromide 1.25 2 puff inhalation DAILY #4 grams 11/27/23 07/05/24 mcg/actuation mist for inhalation (Spiriva Respimat) doxepin 25 mg capsule See Rx Instructions .Route 01/22/24 07/05/24 .COMPLEX #60 caps cyanocobalamin (vitamin B-12) 500 500 mcg PO DAILY #30 tabs 03/13/24 07/05/24 mcg tablet (Vitamin B-12) docusate sodium 100 mg capsule 100 mg PO BID #60 caps 03/13/24 07/05/24 (Colace) bisacodyl 10 mg rectal suppository 10 mg MT DAILY PRN constipation 03/22/24 07/05/24 lobger than 48 hours #12 ea polyethylene glycol 3350 17 17 g PO .Nightly #510 grams 03/22/24 07/05/24 gram/dose oral powder (Miralax) quetiapine 100 mg tablet See Rx Instructions .Route 06/03/24 07/05/24 .COMPLEX #135 tabs Hand Held Nebulizer #1 ea 06/21/24 07/05/24 albuterol sulfate 90 mcg/actuation See Rx Instructions .Route 06/21/24 07/05/24 aerosol inhaler (Ventolin HFA) .COMPLEX #18 grams ferrous sulfate 325 mg (65 mg 325 mg PO DAILY #30 tabs 06/21/24 07/05/24 iron) tablet folic acid 1 mg tablet 1 mg PO DAILY #30 tabs 06/21/24 07/05/24 hydroxyzine HCl 25 mg tablet 25 mg PO TID PRN anxiety #180 tabs 06/21/24 07/05/24 pantoprazole 40 mg tablet,delayed 40 mg PO DAILY #30 tabs 06/21/24 07/05/24 release (Protonix) thiamine mononitrate (vit B1) 100 100 mg PO DAILY #30 tabs 06/21/24 07/05/24 mg tablet (Vitamin B-1 (mononitrate)) trazodone 50 mg tablet See Rx Instructions .Route 07/01/24 07/05/24 .COMPLEX #135 tabs Previous Rx's ?Medication ?Instructions ?Recorded inhalational spacing device #1 ea 09/28/20 (POCKET CHAMBER spacer) nebulizers #1 ea 03/16/21 albuterol sulfate 2.5 mg/3 mL 2.5 mg (3 mL) inhalation Q4H PRN 01/10/23 (0.083 %) solution for nebulization shortness of breath or wheezing #180 mL citalopram 40 mg tablet 40 mg PO DAILY #90 tabs 11/27/23 lisinopril 20 mg tablet 20 mg PO DAILY #90 tab-caps 11/27/23 tiotropium bromide 1.25 2 puff inhalation DAILY #4 grams 11/27/23 mcg/actuation mist for inhalation (Spiriva Respimat) doxepin 25 mg capsule See Rx Instructions .Route 01/22/24 .COMPLEX #60 caps cyanocobalamin (vitamin B-12) 500 500 mcg PO DAILY #30 tabs 03/13/24 mcg tablet (Vitamin B-12) docusate sodium 100 mg capsule 100 mg PO BID #60 caps 03/13/24 (Colace) bisacodyl 10 mg rectal suppository 10 mg MT DAILY PRN constipation 03/22/24 lobger than 48 hours #12 ea polyethylene glycol 3350 17 17 g PO .Nightly #510 grams 03/22/24 gram/dose oral powder (Miralax) quetiapine 100 mg tablet See Rx Instructions .Route 06/03/24 .COMPLEX #135 tabs Hand Held Nebulizer #1 ea 06/21/24 albuterol sulfate 90 mcg/actuation See Rx Instructions .Route 06/21/24 aerosol inhaler (Ventolin HFA) .COMPLEX #18 grams ferrous sulfate 325 mg (65 mg 325 mg PO DAILY #30 tabs 06/21/24 iron) tablet folic acid 1 mg tablet 1 mg PO DAILY #30 tabs 06/21/24 hydroxyzine HCl 25 mg tablet 25 mg PO TID PRN anxiety #180 tabs 06/21/24 pantoprazole 40 mg tablet,delayed 40 mg PO DAILY #30 tabs 06/21/24 release (Protonix) thiamine mononitrate (vit B1) 100 100 mg PO DAILY #30 tabs 06/21/24 mg tablet (Vitamin B-1 (mononitrate)) trazodone 50 mg tablet See Rx Instructions .Route 07/01/24 .COMPLEX #135 tabs Allergies Allergy/AdvReac Type Severity Reaction Status Date / Time hydromorphone (From Dilaudid) Allergy Severe Itching Verified 07/05/24 20:43 oxycodone AdvReac Unknown TERRIBLE Verified 07/05/24 20:43 DREAMS General Stated Complaint: GenMedical ALISTAIR: 4 Review of Systems All systems reviewed & are unremarkable except as noted in HPI and below Constitutional Constitutional: Denies fever(s) Exam Const General: cooperative and no acute distress HENMT Mouth: moist mucous membranes Other: Breath smells like EtOH Eyes Conjunctivae: normal conjunctivae Sclera: normal sclerae Resp Auscultation: clear to auscultation bilaterally, no rales, no rhonchi and no wheezes Cardio Rate: regular rate and not tachycardic Rhythm: regular rhythm GI Inspection: non-distended Palpation: soft, not firm, no guarding, no masses, not rigid and tender in the LUQ (Laterally) Auscultation: normal bowel sounds Skin General skin exam: no rashes or lesions noted Neuro General: patient alert, patient awake and tone normal Extrem General: no edema Course Vital Signs Vital signs: Vital Signs Temperature 36.7 C 07/05/24 20:38 Pulse 105 H 07/05/24 20:38 Respiratory Rate 20 07/05/24 20:38 Blood Pressure 130/72 07/05/24 20:38 Pulse Oximetry 94 07/05/24 20:38 Temperature 36.9 C 07/05/24 20:56 Pulse 88 07/05/24 20:56 Respiratory Rate 20 07/05/24 20:56 Respiratory Effort Non-Labored 07/05/24 20:56 Respiratory Depth Normal 07/05/24 20:56 Respiratory Pattern Normal 07/05/24 20:56 Blood Pressure 130/72 07/05/24 20:56 Blood Pressure Position Sitting 07/05/24 20:38 Pulse Oximetry 98 07/05/24 20:56 Oxygen Delivery Method Room Air 07/05/24 20:56 Oxygen Flow Rate 0 07/05/24 20:38 Pain Level 6 07/05/24 20:56 Medical Decision Making 2126??53-year-old female with multiple medical problems arrives by law enforcement after apprehended for DUI, here with acute on chronic left flank pain. Prior history of splenic rupture requiring intervention. Patient tender left lateral upper abdomen. Patient is tachycardic on arrival, normotensive. Patient denies recent trauma. Unreliable historian given alcohol use and presumed intoxication. Plan to check alcohol level. Unclear etiology for pain at this point. Patient does have significant discomfort. Consider acute intra-abdominal surgical process. Plan to obtain CT of the abdomen pelvis. -- Will give thiamine IV and IVF bolus. 2244 --labs reviewed: Chronic anemia noted, no leukocytosis. Anion gap acidosis noted at 13. LFTs normal. EtOH 212 (21:42). CT of the abdomen pelvis was interpreted by radiology: Lobulated spleen with nonacute appearing areas of likely trace subcapsular fluid and healing laceration in stable configuration compared to the previous noncontrast images. Probably reflect posttraumatic findings. There is a shallow band of fluid anterior to the spleen extending to the gastric cardia and pancreatic tail, decreased slightly in size with faint peripheral enhancement likely loculation 6 x 2 x 1 cm. Chronic seroma favored over abscess. No acute findings. 115 -- Care signed out to Dr. Rosa. Lab Data Lab results reviewed: Yes I reviewed the patient's lab results. Labs: Laboratory Tests Range/Units 07/05/24 21:42 WBC (4.4-10.8) 10^3/uL 5.61 RBC (3.93-5.22) 10^6/uL 3.45 L Hgb (11.2-15.7) g/dL 8.7 L Hct (36.0-46.0) % 28.6 L MCV (80-95) fL 83 MCH (27.0-33.0) pg 25.2 L MCHC (32.0-36.0) % 30.4 L RDW (11.7-14.6) % 17.9 H Plt Count (130-400) 10^3/uL 491 H MPV (8.0-11.0) fL 9.7 Immature Gran % % 0.4 Neutrophils % % 45.4 Lymphocytes % % 40.8 Monocytes % % 9.3 Eosinophils % % 1.6 Basophils % % 2.5 Nucleated RBC % (0.0-0.3) % 0.0 Absolute Neutrophils (1.2-6.7) 10^3/uL 2.55 Absolute Lymphocytes (1.2-3.4) 10^3/uL 2.29 Absolute Monocytes (0.1-0.8) 10^3/uL 0.52 Absolute Eosinophils (0.0-0.7) 10^3/uL 0.09 Absolute Basophils (0.0-0.2) 10^3/uL 0.14 Sodium (136-145) mmol/L 140 Potassium (3.5-5.1) mmol/L 4.5 Chloride (98-107) mmol/L 104 Carbon Dioxide (21.0-32.0) mmol/L 22.6 Anion Gap (3-11) mmol/L 13.4 H BUN (7-18) mg/dL 15 Creatinine (0.55-1.02) mg/dL 1.0 Est GFR (CKD-EPI 2020) (mL/min/1.73m2) 66.53 Glucose (74-106) mg/dL 89 Calcium (8.5-10.1) mg/dL 9.0 Total Bilirubin (0.2-1.0) mg/dL 0.2 AST (15-37) U/L 14 L ALT (14-59) U/L 14 Alkaline Phosphatase (46-116) U/L 124 H Total Protein (6.4-8.2) g/dL 7.8 Albumin (3.4-5.0) g/dL 3.5 Lipase (<78) U/L 46 Ethyl Alcohol (<10) mg/dL 212.2 H Quality:SDOH Health Related Social Needs: Health related social needs housing instability, housed, with risk of homelessness (Z59.811), food insecurity (Z59.41), problems related to housing/economic circumstances (Z59.89), problems finding work (Z56.9) [facility] All Active Problems Dyslipidemia (Acute) Hyperglycemia (Acute) Hypertension (Chronic) Alcohol withdrawal syndrome (Acute) Acute hypoxemic respiratory failure (Acute) Acute on chronic blood loss anemia (Acute) COPD with hypoxia (Acute) Fracture of rib of left side (Acute) Abdominal pain, chronic, left upper quadrant (Acute) Acute exacerbation of chronic obstructive pulmonary disease (COPD) (Acute) Alcohol intoxication in active alcoholic (Acute) Alcohol intoxication (Acute) Alcoholic gastritis without bleeding (Acute) Chronic upper gastrointestinal bleeding (Acute) Cyst and pseudocyst of pancreas (Acute) Alcohol abuse (Chronic) Heavy menses (Acute) Encounter for screening colonoscopy (Acute) Anemia (Chronic) Anxiety (Chronic) DUB (dysfunctional uterine bleeding) (Acute) Impaired fasting blood sugar (Acute 08/01/05) Obesity, unspecified (Acute 05/31/11) Atypical squamous cells of undetermined significance (ASC-US) on cervical Pap smear (Acute 08/05/09) ASCUS 08/05/09; 05/31/2011 Spinal stenosis of lumbar region (Acute 01/11/10) LS spine surg; Dr Sebastian Walker Tobacco dependence (Acute 08/01/05) Medical History DVT prophylaxis Chronic pain (02/20/09) chronic tramadol rx, back pain, sciatica despite LS surg 2009. Depression (04/03/15) Sertaline in the past with good relief of sx but then developed intolerable adverse rxns (nausea, flushing) Started on venlafaxine 03/2015 PHQ9 score = 9, indicating mild depression 03/2015 Anemia Alcohol use disorder COPD (chronic obstructive pulmonary disease) HTN (hypertension), benign Spinal stenosis Lumbar region Surgical History Internal injury, spleen, closed with IR embolization Back surgery L5-S1 decompression 2009 Family History Mother , lung cancer at age 50. No problems noted. Father , MVA No problems noted. Other Lung cancer Social History Smoking/Tobacco Use Status: Current every day Tobacco Type: cigarettes Smoking risk assessment performed?: Yes Alcohol Intake: current Alcohol Intake frequency: 3 or more drinks per day Alcohol type: beer and hard liquor Drug use: Never Substance use type: does not use Housing: other Do you feel safe at home: Yes Do you feel safe in your relationship?: Yes PAWSS Have you Been Recently Intoxicated or Drunk Within the Last 30 days?: Yes Have you Ever Experienced Previous Episodes of Alcohol Withdrawal?: Yes Have you ever Experienced Withdrawal Seizures?: Yes Have you ever Experienced Delirium Tremens(DT)s?: Yes Have you ever undergone Alcohol Rehabilitation Treatment (i.e, inpt ot outpatient treatment programs)?: Yes Have you ever Experienced Blackouts?: Yes Have you ever Combined Alcohol with other Downers within the last 90 days?: No Have you ever Combined Alcohol with any other Substance of Abuse during the last 90 days?: No Positive Blood Alcohol level on Presentation? [PCS.BAL]: Yes Evidence of Increased Autonomic Activity (i.e. HR>120, tremor, sweating, agitation, nausea)?: No Result: 7
[2024-07-05] MEDS: Lactated Ringers 1,000 ML 1000 ML IV (21:37)
[2024-07-05] MEDS: THIAMINE 100 MG in Normal Saline 100 ML 200 MG IVPB (21:38)
[2024-07-05 21:50] LABS: Abs Immature Grans 0.02 10^3/uL (0.0-0.06); Absolute Basophil Count 0.14 10^3/uL (0.0-0.2); Absolute Eosinophil Count 0.09 10^3/uL (0.0-0.7); Absolute Lymphocyte Count 2.29 10^3/uL (1.2-3.4); Absolute Monocyte Count 0.52 10^3/uL (0.1-0.8); Absolute Neutrophil Count 2.55 10^3/uL (1.2-6.7); Basophils % 2.5 %; Eosinophils % 1.6 %; HCT 28.6 % (36.0-46.0); HGB 8.7 g/dL (11.2-15.7); Immature Grans % 0.4 %; Lymphocytes % 40.8 %; MCH 25.2 pg (27.0-33.0); MCHC 30.4 % (32.0-36.0); MCV 83 fL (80-95); MPV 9.7 fL (8.0-11.0); Monocytes % 9.3 %; Neutrophils % 45.4 %; Platelet Count 491 10^3/uL (130-400); RBC 3.45 10^6/uL (3.93-5.22); RDW 17.9 % (11.7-14.6); RDW-SD 53.6 fL; WBC 5.61 10^3/uL (4.4-10.8)
[2024-07-05 22:04] LABS: ETHANOL BLOOD 212.2 mg/dL (<10)
[2024-07-05 22:07] LABS: ALT 14 U/L (14-59); AST 14 U/L (15-37); Albumin 3.5 g/dL (3.4-5.0); Alkaline Phosphatase 124 U/L (46-116); Anion Gap 13.4 mmol/L (3-11); BUN 15 mg/dL (7-18); Bilirubin, Total 0.2 mg/dL (0.2-1.0); CO2 22.6 mmol/L (21.0-32.0); Chloride 104 mmol/L (98-107); Estimated GFR 66.53 (mL/min/1.73m2); Glucose 89 mg/dL (74-106); Potassium 4.5 mmol/L (3.5-5.1); Sodium 140 mmol/L (136-145); Total Protein 7.8 g/dL (6.4-8.2)
[2024-07-05] MEDS: Omnipaque 350 MG/ML 100 ML BTL 75 ML IJ (22:08)
[2024-07-05] MEDS: Normal Saline - Diluent 50 ML VIAL IJ (22:09)
--- NOTE | 2024-07-05 22:37 | DI.VRAD_ITS ---
PROCEDURE INFORMATION: Exam: CT Abdomen And Pelvis With Contrast Exam date and time: 07/05/2024 21:57 Age: 53 years old Clinical indication: Other: Left flank pain, prior splenic rupture TECHNIQUE: Imaging protocol: Computed tomography of the abdomen and pelvis with contrast. Contrast material: OMNIPAQUE 350; Contrast volume: 75 ml; Contrast route: INTRAVENOUS (IV); COMPARISON: CT ABDOMEN PELVIS WO 04/16/2024 18:13 FINDINGS: Liver: Fatty liver with no mass lesions. Gallbladder and biliary ducts: No calcified stones. No gross ductal dilation. Pancreas: Remainder of the pancreas is within normal limits. No acute pancreatitis. Spleen: Lobulated spleen with nonacute appearing areas of likely trace subcapsular fluid and healing laceration in stable configuration compared to the previous noncontrast images. Probably reflect posttraumatic findings. There is a shallow band of fluid anterior to the spleen extending to the gastric cardia and pancreatic tail, decreased slightly in size, with faint peripheral enhancement likely loculation, 6 x 2 x 1 cm. Adrenal glands: No suspicious mass. Kidneys and ureters: No hydronephrosis. No masses. Stomach and bowel: There could be some wall thickening of the gastric cardia in relation to the chronic left upper quadrant fluid collection, favor similar to improving. Appendix: No evidence of appendicitis. Intraperitoneal space: No new intraperitoneal collections. No pneumoperitoneum. Vasculature: No abdominal aortic aneurysm. Lymph nodes: No significantly enlarged lymph nodes. Urinary bladder: No gross wall thickening. Reproductive: Uterine fibroids. Bones/joints: Chronic left rib deformities some of which with partial union, similar to prior. No acute fracture or subluxation. Soft tissues: No suspicious lesions. IMPRESSION: 1. No acute findings. 2. Chronic likely posttraumatic findings of the spleen; small left upper quadrant fluid collection extending anterior to spleen toward pancreatic tail and stomach, slightly decreased in size. Chronic seroma favored over abscess 3. Incidental findings as described. Dictated and Authenticated by: Nyasia Mcelroy MD. Orderin Enrique Thurman MD
[2024-07-05 22:56] LABS: Lipase 46 U/L (<78)
--- NOTE | 2024-07-06 01:09 | W.EDPROG ---
Date of service: 07/06/24 Time of Service: 01:09 Medical Decision Making Patient remained hemodynamically stable. She was seen and assessed by my colleague Dr. Nunez, please refer to his HPI, physical exam, assessment and plan. Patient was medically cleared but still intoxicated. Care was transitioned to ar for reassessment for sobriety. That being said at 1:10 AM police contacted us and stated that they would be bringing her to the [facility]ety [facility]. As patient is medically cleared at this stage I do feel that this is reasonable. She does still appear intoxicated but is able to get up and ambulate well. Imaging did show evidence of a chronic likely posttraumatic fluid collection in the abdomen, seroma is expected. She has no white count or fever to suggest abscess. Will recommend that she follows up closely with her surgeon in regard to this. Otherwise patient is stable for discharge. Discussed red flags for which to return. I have extensively reviewed the treatment plan and discharge instructions with the patient. I have addressed all patient concerns at this time. The patient was made aware of what symptoms to monitor for that would warrant a return to the emergency department. Discussed the plan with the patient, they demonstrate verbal understanding and agreement with our assessment and plan at this time. The documentation in this chart was dictated using [employer] dictation software. Please excuse any dictation errors. Quality:SDOH Health Related Social Needs: Health related social needs housing instability, housed, with risk of homelessness (Z59.811), food insecurity (Z59.41), problems related to housing/economic circumstances (Z59.89), problems finding work (Z56.9) Discharge Plan Disposition Patient Disposition: [facility] Condition: Good Discharge Details Chief Complaint: GenMedical Clinical Impression: Alcohol intoxication, Abdominal fluid collection Primary Care Provider: Paula Barboza ED Provider: Coy Rosa Home Meds and New Rx's Prescriptions: No Action lisinopril 20 mg tablet 20 mg PO DAILY Qty: 90 3RF citalopram 40 mg tablet 40 mg PO DAILY Qty: 90 3RF Spiriva Respimat 1.25 mcg/actuation mist 2 puff inhalation DAILY Qty: 4 12RF albuterol sulfate [Ventolin HFA] 90 mcg/actuation HFA aerosol inhaler See Rx Instructions .ROUTE .COMPLEX Qty: 18 12RF Dose Instruction: INHALE TWO PUFFS BY MOUTH EVERY 4 HOURS NEEDED Rx Instructions: INHALE TWO PUFFS BY MOUTH EVERY 4 HOURS NEEDED ferrous sulfate 325 mg (65 mg iron) tablet 325 mg PO DAILY Qty: 30 0RF folic acid 1 mg tablet 1 mg PO DAILY Qty: 30 0RF hydroxyzine HCl 25 mg tablet 25 mg PO TID PRN (Reason: anxiety) Qty: 180 1RF pantoprazole [Protonix] 40 mg tablet,delayed release (DR/EC) 40 mg PO DAILY Qty: 30 0RF thiamine mononitrate (vit B1) [Vitamin B-1 (mononitrate)] 100 mg tablet 100 mg PO DAILY Qty: 30 0RF (DME) Hand Held Nebulizer See Rx Instructions .Route .MEDSUPPLY Qty: 1 0RF Rx Instructions: As directed albuterol sulfate 2.5 mg /3 mL (0.083 %) solution for nebulization 2.5 mg inhalation Q4H PRN (Reason: shortness of breath or wheezing) Qty: 180 3RF clobetasol-emollient 15 GM cream 1 applic Topical DAILY PRNQty: 60 Rx Instructions: Apply to hands PRN (DME) POCKET CHAMBER Spacer See Rx Instructions .ROUTE .MEDSUPPLY Qty: 1 0RF Rx Instructions: As directed doxepin 25 mg capsule See Rx Instructions .ROUTE .COMPLEX Qty: 60 5RF Dose Instruction: TAKE ONE CAPSULE BY MOUTH TWICE A DAY Rx Instructions: TAKE ONE CAPSULE BY MOUTH TWICE A DAY quetiapine 100 mg tablet See Rx Instructions .ROUTE .COMPLEX Qty: 135 0RF Dose Instruction: TAKE 1 & 1/2 TABLETS BY MOUTH AT BEDTIME DAILY Rx Instructions: TAKE 1 & 1/2 TABLETS BY MOUTH AT BEDTIME DAILY trazodone 50 mg tablet See Rx Instructions .ROUTE .COMPLEX Qty: 135 1RF Dose Instruction: TAKE 1 & 1/2 TABLETS BY MOUTH DAILY AT BEDTIME NEEDED FOR SLEEP Rx Instructions: TAKE 1 & 1/2 TABLETS BY MOUTH DAILY AT BEDTIME NEEDED FOR SLEEP cyanocobalamin (vitamin B-12) [Vitamin B-12] 500 mcg Tablet 500 mcg PO DAILY Qty: 30 0RF docusate sodium [Colace] 100 mg Capsule 100 mg PO BID Qty: 60 0RF polyethylene glycol 3350 [Miralax] 17 gram/dose powder 17 g PO .Nightly Qty: 510 0RF bisacodyl 10 mg suppository 10 mg [place] DAILY PRN (Reason: constipation lobger than 48 hours) Qty: 12 0RF (DME) nebulizers Misc See Rx Instructions .ROUTE .MEDSUPPLY Qty: 1 0RF Rx Instructions: As directed Discharge Instructions Additional Instructions: At this time your workup has returned reassuring, however you do have a chronic finding of a fluid collection in your abdomen. This appears unchanged from prior imaging. Please follow-up closely with your for surgeon for reassessment and further discussion. If you notice any worsening of your symptoms, or any new symptoms such as vomiting, diarrhea, fever, chills, shortness of breath, chest pain, numbness, weakness, or fainting , please return immediately to the emergency department for reevaluation. Please follow up with your primary care provider as soon as possible for reassessment and reevaluation. As always, it was a pleasure participating in your medical care today. Referrals: Paula Barboza NP [Primary Care Provider] -
[2024-07-06 01:19] VITALS: BP 133/80; PULSE 106; RESP 20; TEMP 36.9; O2SAT 97
== END 2024-07-06 01:21 ==
PROVIDERS: Student in an Organized Health Care Education/Training Program; Emergency Provider Student in an Organized Health Care Education/Training Program; PCP Nurse Practitioner
DX: F10.120 Alcohol abuse with intoxication, uncomplicated (principal); R18.8 Other ascites; I10 Essential (primary) hypertension; J44.9 Chronic obstructive pulmonary disease, unspecified; D64.9 Anemia, unspecified; Y90.7 Blood alcohol level of 200-239 mg/100 ml
CPT/HCPCS: 00123; 80053; 83690; 96365; 96366; 99285; 74177; 80320; 85025; J3411; J3490

== ENCOUNTER 2024-07-10 16:23 | Emergency (ER) | payer MEDICAID, SELFPAY ==
[2024-07-10 16:29] VITALS: BP 112/70; PULSE 98; RESP 16; TEMP 36.9; O2SAT 100
--- NOTE | 2024-07-10 17:02 | W.ED.GENAD ---
Discharge Plan Disposition Patient Disposition: Home Condition: Stable Discharge Details Clinical Impression: Encounter for medical clearance for patient hold Primary Care Provider: Paula Barboza ED Provider: Coy Milan Home Meds and New Rx's Prescriptions: Continued lisinopril 20 mg tablet 20 mg PO DAILY Qty: 90 3RF citalopram 40 mg tablet 40 mg PO DAILY Qty: 90 3RF Spiriva Respimat 1.25 mcg/actuation mist 2 puff inhalation DAILY Qty: 4 12RF albuterol sulfate [Ventolin HFA] 90 mcg/actuation HFA aerosol inhaler See Rx Instructions .ROUTE .COMPLEX Qty: 18 12RF Dose Instruction: INHALE TWO PUFFS BY MOUTH EVERY 4 HOURS NEEDED Rx Instructions: INHALE TWO PUFFS BY MOUTH EVERY 4 HOURS NEEDED ferrous sulfate 325 mg (65 mg iron) tablet 325 mg PO DAILY Qty: 30 0RF folic acid 1 mg tablet 1 mg PO DAILY Qty: 30 0RF hydroxyzine HCl 25 mg tablet 25 mg PO TID PRN (Reason: anxiety) Qty: 180 1RF pantoprazole [Protonix] 40 mg tablet,delayed release (DR/EC) 40 mg PO DAILY Qty: 30 0RF thiamine mononitrate (vit B1) [Vitamin B-1 (mononitrate)] 100 mg tablet 100 mg PO DAILY Qty: 30 0RF (DME) Hand Held Nebulizer See Rx Instructions .Route .MEDSUPPLY Qty: 1 0RF Rx Instructions: As directed albuterol sulfate 2.5 mg /3 mL (0.083 %) solution for nebulization 2.5 mg inhalation Q4H PRN (Reason: shortness of breath or wheezing) Qty: 180 3RF clobetasol-emollient 15 GM cream 1 applic Topical DAILY PRNQty: 60 Rx Instructions: Apply to hands PRN (DME) POCKET CHAMBER Spacer See Rx Instructions .ROUTE .MEDSUPPLY Qty: 1 0RF Rx Instructions: As directed doxepin 25 mg capsule See Rx Instructions .ROUTE .COMPLEX Qty: 60 5RF Dose Instruction: TAKE ONE CAPSULE BY MOUTH TWICE A DAY Rx Instructions: TAKE ONE CAPSULE BY MOUTH TWICE A DAY quetiapine 100 mg tablet See Rx Instructions .ROUTE .COMPLEX Qty: 135 0RF Dose Instruction: TAKE 1 & 1/2 TABLETS BY MOUTH AT BEDTIME DAILY Rx Instructions: TAKE 1 & 1/2 TABLETS BY MOUTH AT BEDTIME DAILY trazodone 50 mg tablet See Rx Instructions .ROUTE .COMPLEX Qty: 135 1RF Dose Instruction: TAKE 1 & 1/2 TABLETS BY MOUTH DAILY AT BEDTIME NEEDED FOR SLEEP Rx Instructions: TAKE 1 & 1/2 TABLETS BY MOUTH DAILY AT BEDTIME NEEDED FOR SLEEP cyanocobalamin (vitamin B-12) [Vitamin B-12] 500 mcg Tablet 500 mcg PO DAILY Qty: 30 0RF docusate sodium [Colace] 100 mg Capsule 100 mg PO BID Qty: 60 0RF polyethylene glycol 3350 [Miralax] 17 gram/dose powder 17 g PO .Nightly Qty: 510 0RF bisacodyl 10 mg suppository 10 mg OK DAILY PRN (Reason: constipation lobger than 48 hours) Qty: 12 0RF (DME) nebulizers Misc See Rx Instructions .ROUTE .MEDSUPPLY Qty: 1 0RF Rx Instructions: As directed Discharge Instructions Instructions: Alcohol Use Disorder ED Additional Instructions: You were seen in the emergency department for medical clearance to go to the detox bed at the [place] [facility]. You have had left-sided abdominal pain that has been consistent for 8 months, your vitals are normal, you are answering questions appropriately, your abdominal pain is of a chronic nature and with normal vitals for months of pain I do not suspect any emergent process or organ dysfunction within the abdomen. You are cleared for supervised detox. Please have the medical staff provide any treatments you may need for mild withdrawal symptoms, please return to the emergency department for any significant seizure-like activity, intractable nausea or vomiting, other emergent concerns. Please follow-up with Dr. Lemus's office for outpatient procedure once you are clear of your alcohol withdrawal syndrome. Referrals: [facility] [Provider Group] Paula Barboza NP [Primary Care Provider] - Discharge Data Discharge Date/Time-TO BE ENTERED AT DEPARTURE: 07/10/24 17:25 HPI General Date/Time Provider Initiated Documentation: 07/10/24 16:26. HPI Narrative: 53 year-old female presents to ED today by PD custody with a chief complaint of request for medical clearance for detox bed at the [place]. Quality described as drank a pint of vodka today- feels mildly nauseous, complains of LUQ abdominal pain for the past 8 months that is unchanged, no radiation to shaking, vomiting, seizure-like activity, fever, cough, chest pain, bowel/urinary changes. Severity is described as moderate. Palliating factors include nothing specific attempted. Provoking factors include nothing specific. Events leading up to the incident/Associated Symptoms: Patient denies history of ETOH withdrawal seizures. Patient not anticoagulated. Related Data Home Medications ?Medication ?Instructions ?Recorded ?Confirmed clobetasol-emollient 0.05 % 1 applic topical DAILY PRN #60 12/08/16 07/10/24 topical cream grams inhalational spacing device #1 ea 09/28/20 07/05/24 (POCKET CHAMBER spacer) nebulizers #1 ea 03/16/21 07/05/24 albuterol sulfate 2.5 mg/3 mL 2.5 mg (3 mL) inhalation Q4H PRN 01/10/23 07/10/24 (0.083 %) solution for nebulization shortness of breath or wheezing #180 mL citalopram 40 mg tablet 40 mg PO DAILY #90 tabs 11/27/23 07/10/24 lisinopril 20 mg tablet 20 mg PO DAILY #90 tab-caps 11/27/23 07/10/24 tiotropium bromide 1.25 2 puff inhalation DAILY #4 grams 11/27/23 07/10/24 mcg/actuation mist for inhalation (Spiriva Respimat) doxepin 25 mg capsule See Rx Instructions .Route 01/22/24 07/10/24 .COMPLEX #60 caps cyanocobalamin (vitamin B-12) 500 500 mcg PO DAILY #30 tabs 03/13/24 07/10/24 mcg tablet (Vitamin B-12) docusate sodium 100 mg capsule 100 mg PO BID #60 caps 03/13/24 07/10/24 (Colace) bisacodyl 10 mg rectal suppository 10 mg OK DAILY PRN constipation 03/22/24 07/10/24 lobger than 48 hours #12 ea polyethylene glycol 3350 17 17 g PO .Nightly #510 grams 03/22/24 07/10/24 gram/dose oral powder (Miralax) quetiapine 100 mg tablet See Rx Instructions .Route 06/03/24 07/10/24 .COMPLEX #135 tabs Hand Held Nebulizer #1 ea 06/21/24 07/05/24 albuterol sulfate 90 mcg/actuation See Rx Instructions .Route 06/21/24 07/10/24 aerosol inhaler (Ventolin HFA) .COMPLEX #18 grams ferrous sulfate 325 mg (65 mg 325 mg PO DAILY #30 tabs 06/21/24 07/10/24 iron) tablet folic acid 1 mg tablet 1 mg PO DAILY #30 tabs 06/21/24 07/10/24 hydroxyzine HCl 25 mg tablet 25 mg PO TID PRN anxiety #180 tabs 06/21/24 07/10/24 pantoprazole 40 mg tablet,delayed 40 mg PO DAILY #30 tabs 06/21/24 07/10/24 release (Protonix) thiamine mononitrate (vit B1) 100 100 mg PO DAILY #30 tabs 06/21/24 07/10/24 mg tablet (Vitamin B-1 (mononitrate)) trazodone 50 mg tablet See Rx Instructions .Route 07/01/24 07/10/24 .COMPLEX #135 tabs Previous Rx's ?Medication ?Instructions ?Recorded inhalational spacing device #1 ea 09/28/20 (POCKET CHAMBER spacer) nebulizers #1 ea 03/16/21 albuterol sulfate 2.5 mg/3 mL 2.5 mg (3 mL) inhalation Q4H PRN 01/10/23 (0.083 %) solution for nebulization shortness of breath or wheezing #180 mL citalopram 40 mg tablet 40 mg PO DAILY #90 tabs 11/27/23 lisinopril 20 mg tablet 20 mg PO DAILY #90 tab-caps 11/27/23 tiotropium bromide 1.25 2 puff inhalation DAILY #4 grams 11/27/23 mcg/actuation mist for inhalation (Spiriva Respimat) doxepin 25 mg capsule See Rx Instructions .Route 01/22/24 .COMPLEX #60 caps cyanocobalamin (vitamin B-12) 500 500 mcg PO DAILY #30 tabs 03/13/24 mcg tablet (Vitamin B-12) docusate sodium 100 mg capsule 100 mg PO BID #60 caps 03/13/24 (Colace) bisacodyl 10 mg rectal suppository 10 mg OK DAILY PRN constipation 03/22/24 lobger than 48 hours #12 ea polyethylene glycol 3350 17 17 g PO .Nightly #510 grams 03/22/24 gram/dose oral powder (Miralax) quetiapine 100 mg tablet See Rx Instructions .Route 06/03/24 .COMPLEX #135 tabs Hand Held Nebulizer #1 ea 06/21/24 albuterol sulfate 90 mcg/actuation See Rx Instructions .Route 06/21/24 aerosol inhaler (Ventolin HFA) .COMPLEX #18 grams ferrous sulfate 325 mg (65 mg 325 mg PO DAILY #30 tabs 06/21/24 iron) tablet folic acid 1 mg tablet 1 mg PO DAILY #30 tabs 06/21/24 hydroxyzine HCl 25 mg tablet 25 mg PO TID PRN anxiety #180 tabs 06/21/24 pantoprazole 40 mg tablet,delayed 40 mg PO DAILY #30 tabs 06/21/24 release (Protonix) thiamine mononitrate (vit B1) 100 100 mg PO DAILY #30 tabs 06/21/24 mg tablet (Vitamin B-1 (mononitrate)) trazodone 50 mg tablet See Rx Instructions .Route 07/01/24 .COMPLEX #135 tabs Allergies Allergy/AdvReac Type Severity Reaction Status Date / Time hydromorphone (From Dilaudid) Allergy Severe Itching Verified 07/10/24 16:49 oxycodone AdvReac Unknown TERRIBLE Verified 07/10/24 16:49 DREAMS General Stated Complaint: ETOHWithdr ALISTAIR: 3 Review of Systems All systems reviewed & are unremarkable except as noted in HPI and below Exam Narrative Exam Narrative: GENERAL APPEARANCE: Well-nourished, non-toxic, awake and alert, atraumatic, no acute distress. SKIN: Warm, pink, dry, intact, without rashes/lesions/ulcerations. HEAD: Normocephalic, atraumatic, normal hair distribution for gender/age. EYES: Normal conjunctiva, no exudates on lids/lashes. ENT: Nares patent, no circumoral cyanosis, no facial swelling NECK: Supple, trachea midline, painless cervical ROM. LUNGS/CHEST: Lungs CTA bilaterally, non-labored respirations, normal A/P diameter, symmetrical expansion, no chest wall deformity HEART (CV/PV): Regular rate and rhythm without murmur, no peripheral edema, no JVD. ABDOMEN: Soft, non-distended, no guarding, LUQ tenderness without rebound tenderness, no Rovsing's, no Carney's sign. MSK: Normal ROM, no swelling/deformity to bilateral UEs or LEs, moving all extremities without weakness, no cyanosis, spine midline without tenderness, normal curvature. NEURO: Mental Status AAOx4 - alert to person, place, time, events No facial droop, no forehead involvement. Motor: No focal weakness - strength 5/5 in bilateral UEs and LEs, proximal and distal, symmetric. Sensory: sensation intact to light touch globally. Gait normal: patient ambulated without ataxia into ED room. PSYCH: euthymic, cooperative, pleasant, appropriate speech Course Vital Signs Vital signs: Vital Signs Temperature 36.9 C 07/10/24 16:29 Pulse 98 H 07/10/24 16:29 Respiratory Rate 16 07/10/24 16:29 Blood Pressure 112/70 07/10/24 16:29 Pulse Oximetry 100 07/10/24 16:29 Temperature 36.9 C 07/10/24 16:29 Temperature Source Oral 07/10/24 16:29 Pulse 98 H 07/10/24 16:29 Respiratory Rate 16 07/10/24 16:29 Blood Pressure 112/70 07/10/24 16:29 Blood Pressure Position Supine 07/10/24 16:29 Pulse Oximetry 100 07/10/24 16:29 Oxygen Delivery Method Room Air 07/10/24 16:29 Oxygen Flow Rate 0 07/10/24 16:29 Pain Level 5 07/10/24 16:29 Medical Decision Making This dictation utilizes [id number] dictation software and may contain unedited grammatical errors. 53 year-old female presents to ED today by PD custody with a chief complaint of request for medical clearance for detox bed at the [place] [facility]. Quality described as drank a pint of vodka today- feels mildly nauseous, complains of LUQ abdominal pain for the past 8 months that is unchanged, no radiation to shaking, vomiting, seizure-like activity, fever, cough, chest pain, bowel/urinary changes. Severity is described as moderate. Palliating factors include nothing specific attempted. Provoking factors include nothing specific. Events leading up to the incident/Associated Symptoms: Patient denies history of ETOH withdrawal seizures. Patients' medical history: COPD, alcohol use disorder, dyslipidemia, hypertension, chronic anemia, anxiety, gastritis. Family and social history: Daily heavy drinker, denies illicit drug use. Pertinent exam findings / vital signs include left upper quadrant tenderness that is unchanged for the past 8 months, no rebound tenderness, no Rovsing's, negative Carney sign, benign cardiopulmonary status, managing secretions well, no hypoxia, stable vitals. Differential / pathologies of concern include alcohol intoxication, alcohol withdrawal, gastroenteritis, colitis, ascites, not SBP. Diagnostic studies of: -none. Interventions of: -none. ED Course/Assessment/Plan: 53-year-old female presents for clearance for detox bed at [facility], she has chronic abdominal pain for 8 months do not suspect emergent process, patient denies seizure activity and drank vodka today displaying no signs of active withdrawal, they do have medical staff at the detox bed that can give her any symptomatic treatments for significant withdrawals or she may return for severe signs of withdrawal, patient and police verbalized understanding of this plan. Findings not consistent with significant withdrawal, perforated viscus or other emergent abdominal pathology. Disposition of Encounter for medical clearance for patient hold. Patient verbalized understanding of the plan and return to ED criteria and engaged in shared decision making. Medical Records Medical records reviewed: Yes I reviewed the patient's medical records. Quality:[facility] Health Related Social Needs: Health related social needs housing instability, housed, with risk of homelessness (Z59.811), food insecurity (Z59.41), problems related to housing/economic circumstances (Z59.89), problems finding work (Z56.9) [facility] All Active Problems (Updated 07/10/24 @ 17:04 by PIPPA Bates) Encounter for medical clearance for patient hold (Acute) Abdominal fluid collection (Acute) Alcohol intoxication (Acute) Dyslipidemia (Acute) Hyperglycemia (Acute) Hypertension (Chronic) Alcohol withdrawal syndrome (Acute) Acute hypoxemic respiratory failure (Acute) Acute on chronic blood loss anemia (Acute) COPD with hypoxia (Acute) Fracture of rib of left side (Acute) Abdominal pain, chronic, left upper quadrant (Acute) Acute exacerbation of chronic obstructive pulmonary disease (COPD) (Acute) Alcohol intoxication in active alcoholic (Acute) Alcohol intoxication (Acute) Alcoholic gastritis without bleeding (Acute) Chronic upper gastrointestinal bleeding (Acute) Cyst and pseudocyst of pancreas (Acute) Alcohol abuse (Chronic) Heavy menses (Acute) Encounter for screening colonoscopy (Acute) Anemia (Chronic) Anxiety (Chronic) DUB (dysfunctional uterine bleeding) (Acute) Impaired fasting blood sugar (Acute 08/01/05) Obesity, unspecified (Acute 05/31/11) Atypical squamous cells of undetermined significance (ASC-US) on cervical Pap smear (Acute 08/05/09) ASCUS 08/05/09; 05/31/2011 Spinal stenosis of lumbar region (Acute 01/11/10) LS spine surg; Dr Sebastian Walker Tobacco dependence (Acute 08/01/05) Medical History DVT prophylaxis Chronic pain (02/20/09) chronic tramadol rx, back pain, sciatica despite LS surg 2009. Depression (04/03/15) Sertaline in the past with good relief of sx but then developed intolerable adverse rxns (nausea, flushing) Started on venlafaxine 03/2015 PHQ9 score = 9, indicating mild depression 03/2015 Anemia Alcohol use disorder COPD (chronic obstructive pulmonary disease) HTN (hypertension), benign Spinal stenosis Lumbar region Surgical History Internal injury, spleen, closed with IR embolization Back surgery L5-S1 decompression 2009 Family History Mother , lung cancer at age 50. No problems noted. Father , MVA No problems noted. Other Lung cancer Social History Smoking/Tobacco Use Status: Current every day Tobacco Type: cigarettes Smoking risk assessment performed?: Yes Alcohol Intake: current Alcohol Intake frequency: 3 or more drinks per day Alcohol type: beer and hard liquor Drug use: Never Substance use type: does not use Housing: other Do you feel safe at home: Yes Do you feel safe in your relationship?: Yes PAWSS Have you Been Recently Intoxicated or Drunk Within the Last 30 days?: Yes Have you Ever Experienced Previous Episodes of Alcohol Withdrawal?: Yes Have you ever Experienced Withdrawal Seizures?: Yes Have you ever Experienced Delirium Tremens(DT)s?: Yes Have you ever undergone Alcohol Rehabilitation Treatment (i.e, inpt ot outpatient treatment programs)?: Yes Have you ever Experienced Blackouts?: Yes Have you ever Combined Alcohol with other Downers within the last 90 days?: No Have you ever Combined Alcohol with any other Substance of Abuse during the last 90 days?: No Positive Blood Alcohol level on Presentation? [PCS.BAL]: Yes Evidence of Increased Autonomic Activity (i.e. HR>120, tremor, sweating, agitation, nausea)?: Yes Result: 8
== END 2024-07-10 17:25 | disposition home or self-care (01) ==
PROVIDERS: Emergency Provider Physician Assistant; PCP Nurse Practitioner
DX: Z59.811 Housing instability, housed, with risk of homelessness; Z59.41 Food insecurity; Z59.89 Other problems related to housing and economic circumstances; Z56.9 Unspecified problems related to employment; R10.12 Left upper quadrant pain
CPT/HCPCS: 99283; 99285

== ENCOUNTER 2024-07-22 16:02 | Inpatient (IN) | payer MEDICAID, SELFPAY ==
[2024-07-22] VITALS (44 sets, daily range): BP systolic 88–127; BP diastolic 42–77; PULSE 71–117; RESP 0–27; TEMP 36.8–37.6; O2SAT 83–100
--- NOTE | 2024-07-22 16:30 | NUR.NOTE ---
Advised by [facility] that they heard patient fall in the bathroom. Patient states she fell and hit the back of her head. No open area noted, no loc, no neck pain.
--- NOTE | 2024-07-22 16:30 | RT.EKG_ITS ---
APPROVED REPORT Exam: Resting ECG Reason for Exam: CP, cough Patient Location: E HR:86 bpm ECG Measurements Heart Rate 86 AXIS IN 140 P 40 QRSd 92 QRS 80 QT 374 T 76 QTc 448 Conclusion Sinus rhythm...normal P axis, V-rate 60- 99 Low voltage, precordial leads...precordial leads <1.0mV
--- NOTE | 2024-07-22 16:43 | W.ED.GENAD ---
Discharge Plan Discharge Details Chief Complaint: ETOHWithdr Admit Date/Time: 07/22/24 21:54 Admit Provider: Gregorio Smart Attending Provider: Gregorio Smart Primary Care Provider: Paula Barboza ED Provider: Grace Larsen Discharge Data Discharge Date/Time-TO BE ENTERED AT DEPARTURE: 07/22/24 21:56 HPI General Date/Time Provider Initiated Documentation: 07/22/24 16:06. HPI Narrative: Pratima is a 53-year-old female who presents to the emergency department accompanied by [facility] troopers for medical clearance. Brought in by law enforcement due to intoxication and eviction from hotel. Last alcohol consumption was this morning; typically consumes one-fifth of a bottle daily thoughout the day, today drank more than usual. History of detoxification while incarcerated with IV medication, no seizures but does have history of hallucinations with detox. Pratima reports she is not feeling well, reports chest tightness and worsened cough/wheezing from baseline. Also tremors, vomiting, and diarrhea. Has not had anything else to eat or drink today. Says that she has had decreased urine output, last urinated last night a small dark amount, has had dysuria for the last week. Also has had diarrhea. Denies recent illness such as fever/chills, congestion, new sore throat. PMH significant for COPD, HTN, Kumar gastritis, GI bleed, anxiety, and tobacco use. Denies history of known kidney issues, UTIs, liver problems, diabetes, or heart conditions. Related Data Home Medications ?Medication ?Instructions ?Recorded ?Confirmed clobetasol-emollient 0.05 % 1 applic topical DAILY PRN #60 12/08/16 07/22/24 topical cream grams inhalational spacing device #1 ea 09/28/20 07/22/24 (POCKET CHAMBER spacer) nebulizers #1 ea 03/16/21 07/22/24 albuterol sulfate 2.5 mg/3 mL 2.5 mg (3 mL) inhalation Q4H PRN 01/10/23 07/22/24 (0.083 %) solution for nebulization shortness of breath or wheezing #180 mL citalopram 40 mg tablet 40 mg PO DAILY #90 tabs 11/27/23 07/22/24 lisinopril 20 mg tablet 20 mg PO DAILY #90 tab-caps 11/27/23 07/22/24 tiotropium bromide 1.25 2 puff inhalation DAILY #4 grams 11/27/23 07/22/24 mcg/actuation mist for inhalation (Spiriva Respimat) doxepin 25 mg capsule See Rx Instructions .Route 01/22/24 07/22/24 .COMPLEX #60 caps cyanocobalamin (vitamin B-12) 500 500 mcg PO DAILY #30 tabs 03/13/24 07/22/24 mcg tablet (Vitamin B-12) docusate sodium 100 mg capsule 100 mg PO BID #60 caps 03/13/24 07/22/24 (Colace) bisacodyl 10 mg rectal suppository 10 mg VA DAILY PRN constipation 03/22/24 07/22/24 lobger than 48 hours #12 ea polyethylene glycol 3350 17 17 g PO .Nightly #510 grams 03/22/24 07/22/24 gram/dose oral powder (Miralax) quetiapine 100 mg tablet See Rx Instructions .Route 06/03/24 07/22/24 .COMPLEX #135 tabs Hand Held Nebulizer #1 ea 06/21/24 07/22/24 albuterol sulfate 90 mcg/actuation See Rx Instructions .Route 06/21/24 07/22/24 aerosol inhaler (Ventolin HFA) .COMPLEX #18 grams ferrous sulfate 325 mg (65 mg 325 mg PO DAILY #30 tabs 06/21/24 07/22/24 iron) tablet folic acid 1 mg tablet 1 mg PO DAILY #30 tabs 06/21/24 07/22/24 hydroxyzine HCl 25 mg tablet 25 mg PO TID PRN anxiety #180 tabs 06/21/24 07/22/24 pantoprazole 40 mg tablet,delayed 40 mg PO DAILY #30 tabs 06/21/24 07/22/24 release (Protonix) thiamine mononitrate (vit B1) 100 100 mg PO DAILY #30 tabs 06/21/24 07/22/24 mg tablet (Vitamin B-1 (mononitrate)) trazodone 50 mg tablet See Rx Instructions .Route 07/01/24 07/22/24 .COMPLEX #135 tabs Previous Rx's ?Medication ?Instructions ?Recorded inhalational spacing device #1 ea 09/28/20 (POCKET CHAMBER spacer) nebulizers #1 ea 03/16/21 albuterol sulfate 2.5 mg/3 mL 2.5 mg (3 mL) inhalation Q4H PRN 01/10/23 (0.083 %) solution for nebulization shortness of breath or wheezing #180 mL citalopram 40 mg tablet 40 mg PO DAILY #90 tabs 11/27/23 lisinopril 20 mg tablet 20 mg PO DAILY #90 tab-caps 11/27/23 tiotropium bromide 1.25 2 puff inhalation DAILY #4 grams 11/27/23 mcg/actuation mist for inhalation (Spiriva Respimat) doxepin 25 mg capsule See Rx Instructions .Route 01/22/24 .COMPLEX #60 caps cyanocobalamin (vitamin B-12) 500 500 mcg PO DAILY #30 tabs 03/13/24 mcg tablet (Vitamin B-12) docusate sodium 100 mg capsule 100 mg PO BID #60 caps 03/13/24 (Colace) bisacodyl 10 mg rectal suppository 10 mg VA DAILY PRN constipation 03/22/24 lobger than 48 hours #12 ea polyethylene glycol 3350 17 17 g PO .Nightly #510 grams 03/22/24 gram/dose oral powder (Miralax) quetiapine 100 mg tablet See Rx Instructions .Route 06/03/24 .COMPLEX #135 tabs Hand Held Nebulizer #1 ea 06/21/24 albuterol sulfate 90 mcg/actuation See Rx Instructions .Route 06/21/24 aerosol inhaler (Ventolin HFA) .COMPLEX #18 grams ferrous sulfate 325 mg (65 mg 325 mg PO DAILY #30 tabs 06/21/24 iron) tablet folic acid 1 mg tablet 1 mg PO DAILY #30 tabs 06/21/24 hydroxyzine HCl 25 mg tablet 25 mg PO TID PRN anxiety #180 tabs 06/21/24 pantoprazole 40 mg tablet,delayed 40 mg PO DAILY #30 tabs 06/21/24 release (Protonix) thiamine mononitrate (vit B1) 100 100 mg PO DAILY #30 tabs 06/21/24 mg tablet (Vitamin B-1 (mononitrate)) trazodone 50 mg tablet See Rx Instructions .Route 07/01/24 .COMPLEX #135 tabs Allergies Allergy/AdvReac Type Severity Reaction Status Date / Time hydromorphone (From Dilaudid) Allergy Severe Itching Verified 07/22/24 16:11 oxycodone AdvReac Unknown TERRIBLE Verified 07/22/24 16:11 DREAMS General Stated Complaint: ETOHWithdr ALISTAIR: 3 Exam Narrative Exam Narrative: General Appearance: Normal. Vital signs: Within normal limits. HEENT: Head atraumatic, no raccoon eyes or Suazo sign. Normal nose. Spine: No C-spine/T-spine/L-spine step-off/tenderness/deformity. Full painless range of motion of neck. Respiratory: Increased work of breathing. Occasional spastic cough. Wheezing noted in all lung gaytan. Cardiac: Normal heart sounds, regular rate and rhythm. GI: Abdomen is soft, nondistended, nontender ti palpation Skin: Warm and dry, no rash. Neurologic: Tremors noted with extended hands Psychiatric: Normal. Course Vital Signs Vital signs: Vital Signs Temperature 36.8 C 07/22/24 16:05 Pulse 90 07/22/24 16:05 Respiratory Rate 16 07/22/24 16:05 Blood Pressure 88/57 L 07/22/24 16:05 Pulse Oximetry 89 L 07/22/24 16:05 Temperature 36.8 C 07/22/24 16:05 Temperature Source Oral 07/22/24 16:05 Pulse 90 07/22/24 16:05 Respiratory Rate 16 07/22/24 16:05 Blood Pressure 88/57 L 07/22/24 16:05 Pulse Oximetry 89 L 07/22/24 16:05 Medical Decision Making Initial Assessment: Pratima is a 53-year-old female brought in by police for medical clearance before detox due to alcohol intoxication. Differential Diagnosis: Intracranial hemorrhage, C-spine fracture, COPD exacerbation, pneumonia, viral illness, dehydration, ASIA, liver dysfunction, gastritis, alcohol withdrawal/delirium tremens ED Course: - Administer nebulizer treatment and prednisone for COPD; has new O2 requirement, dips into the low 80s on room air. Currently requiring 1 L via simple facemask as she cannot tolerate nasal cannula. -Blood work and urine ordered - Perform chest x-ray to evaluate condition further. I independently interpreted the following tests: Creatinine elevated above baseline, 1.4 today versus 1.05 1625. CBC, magnesium, lipase, VBG, UA, UDS all reassuring. EtOH 357.3. Troponins flat. Head CT and chest x-ray performed, chest x-ray shows possible early pneumonia. CT head and neck unremarkable Clinical Impression: - Alcohol intoxication - COPD with hypoxia -ASIA Disposition: - Discussed case with Dr. Smart, [facility] hospitalist. Patient to be admitted, with phenobarbital protocol initiated MDM Components Evaluation: - Number of Differential Diagnoses or Management Options: Alcohol intoxication, COPD - Amount and Complexity of Data Reviewed: Chest x-ray, patient history - Risk of Complication and Morbidity or Mortality: High risk due to severe COPD and alcohol intoxication. Patient consented to the use of SERENA Imaging Data Radiologic Study: Radiologist's impression: PROCEDURE INFORMATION: Exam: XR Chest Exam date and time: 07/22/2024 7:30 PM Age: 53 years old Clinical indication: Cough and shortness of breath; Cough, SOB, new o2 requirement TECHNIQUE: Imaging protocol: Radiologic exam of the chest. Views: 2 views. COMPARISON: CR XR PORTABLE CHEST AP 04/24/2024 4:15 AM FINDINGS: Lungs: Ill-defined infiltrate in the left lower lobe possibly representing an early pneumonia. Continued follow-up is recommended. Pleural spaces: Unremarkable. No pleural effusion. No pneumothorax. Heart/Mediastinum: Unremarkable. No cardiomegaly. Bones/joints: Unremarkable. IMPRESSION: Findings suspicious for developing left lower lobe infiltrate/pneumonia. Continued follow-up is recommended. Radiologic Study #2: Radiologist's impression: PROCEDURE INFORMATION: Exam: CT Head Without Contrast Exam date and time: 07/22/2024 7:10 PM Age: 53 years old Clinical indication: Injury or trauma; Blunt trauma (contusions or hematomas); Consciousness not specified; Injury date: 07/22/24; Injury details: Fall, hit head earlier today TECHNIQUE: Imaging protocol: Computed tomography of the head without contrast. Radiation optimization: All CT scans at this facility use at least one of these dose optimization techniques: automated exposure control; mA and/or kV adjustment per patient size (includes targeted exams where dose is matched to clinical indication); or iterative reconstruction. COMPARISON: CT HEAD CERVICAL SPINE WO 08/06/2022 6:45 PM FINDINGS: Brain: Normal. No hemorrhage. Unremarkable white matter. No mass effect. Cerebral ventricles: No ventriculomegaly. Paranasal sinuses: Chronic right maxillary sinus disease. Mastoid air cells: Visualized mastoid air cells are well aerated. Bones: Unremarkable. No acute fracture. Soft tissues: Unremarkable. IMPRESSION: 1. No acute intracranial abnormalities noted. 2. Chronic right maxillary sinus disease. Exam: CT Cervical Spine Without Contrast Exam date and time: 07/22/2024 7:10 PM Age: 53 years old Clinical indication: Injury or trauma; Blunt trauma (contusions or hematomas); Consciousness not specified; Injury date: 07/22/24; Injury details: Fall, hit head earlier today TECHNIQUE: Imaging protocol: Computed tomography of the cervical spine without contrast. Radiation optimization: All CT scans at this facility use at least one of these dose optimization techniques: automated exposure control; mA and/or kV adjustment per patient size (includes targeted exams where dose is matched to clinical indication); or iterative reconstruction. COMPARISON: CT HEAD CERVICAL SPINE WO 08/06/2022 6:45 PM FINDINGS: Bones: Normal alignment of the cervical vertebral bodies and discs. No acute fracture. Mild osteoarthritic changes identified at C5-C6 and C6-C7. No evidence for spondylolysis or spondylolisthesis. Lungs: Lung apices are normal. Soft tissues: Unremarkable. IMPRESSION: 1. No acute fracture. 2. Mild osteoarthritic changes without underlying spinal stenosis or cord compression. Quality:SDOH Health Related Social Needs: Health related social needs housing instability, housed, with risk of homelessness (Z59.811), food insecurity (Z59.41), problems related to housing/economic circumstances (Z59.89), problems finding work (Z56.9) PFS All Active Problems (Updated 07/22/24 @ 21:04 by Gregorio Smart MD) Depression with anxiety (Acute) ASIA (acute kidney injury) (Acute) Acute respiratory failure with hypoxia (Acute) COPD with acute exacerbation (Acute) Encounter for medical clearance for patient hold (Acute) Abdominal fluid collection (Acute) Alcohol intoxication (Acute) Dyslipidemia (Acute) Hyperglycemia (Acute) Hypertension (Chronic) Alcohol withdrawal syndrome (Acute) Acute hypoxemic respiratory failure (Acute) Acute on chronic blood loss anemia (Acute) COPD with hypoxia (Acute) Fracture of rib of left side (Acute) Abdominal pain, chronic, left upper quadrant (Acute) Acute exacerbation of chronic obstructive pulmonary disease (COPD) (Acute) Alcohol intoxication in active alcoholic (Acute) Alcohol intoxication (Acute) Alcoholic gastritis without bleeding (Acute) Chronic upper gastrointestinal bleeding (Acute) Cyst and pseudocyst of pancreas (Acute) Alcohol abuse (Chronic) Heavy menses (Acute) Encounter for screening colonoscopy (Acute) Anemia (Chronic) Anxiety (Chronic) DUB (dysfunctional uterine bleeding) (Acute) Impaired fasting blood sugar (Acute 08/01/05) Obesity, unspecified (Acute 05/31/11) Atypical squamous cells of undetermined significance (ASC-US) on cervical Pap smear (Acute 08/05/09) ASCUS 08/05/09; 05/31/2011 Spinal stenosis of lumbar region (Acute 01/11/10) LS spine surg; Dr Sebastian Walker Tobacco dependence (Acute 08/01/05) Medical History DVT prophylaxis Chronic pain (02/20/09) chronic tramadol rx, back pain, sciatica despite LS surg 2009. Depression (04/03/15) Sertaline in the past with good relief of sx but then developed intolerable adverse rxns (nausea, flushing) Started on venlafaxine 03/2015 PHQ9 score = 9, indicating mild depression 03/2015 Anemia Alcohol use disorder COPD (chronic obstructive pulmonary disease) HTN (hypertension), benign Spinal stenosis Lumbar region Surgical History Internal injury, spleen, closed with IR embolization Back surgery L5-S1 decompression 2009 Family History Mother , lung cancer at age 50. No problems noted. Father , MVA No problems noted. Other Lung cancer Social History Smoking/Tobacco Use Status: Current every day Tobacco Type: cigarettes Smoking risk assessment performed?: Yes Alcohol Intake: current Alcohol Intake frequency: 3 or more drinks per day Alcohol type: beer and hard liquor Drug use: Never Substance use type: does not use Housing: other Do you feel safe at home: Yes Do you feel safe in your relationship?: Yes
[2024-07-22] MEDS: Albuterol/Ipratropium 3 ML UPD VIAL UPD (17:10)
[2024-07-22 17:20] LABS: Abs Immature Grans 0.01 10^3/uL (0.0-0.06); Absolute Basophil Count 0.09 10^3/uL (0.0-0.2); Absolute Eosinophil Count 0.17 10^3/uL (0.0-0.7); Absolute Lymphocyte Count 1.31 10^3/uL (1.2-3.4); Absolute Monocyte Count 0.33 10^3/uL (0.1-0.8); Absolute Neutrophil Count 2.19 10^3/uL (1.2-6.7); Basophils % 2.2 %; Eosinophils % 4.1 %; HCT 28.5 % (36.0-46.0); HGB 8.3 g/dL (11.2-15.7); Immature Grans % 0.2 %; MCH 24.3 pg (27.0-33.0); MCHC 29.1 % (32.0-36.0); MCV 83 fL (80-95); Neutrophils % 53.5 %; Platelet Count 294 10^3/uL (130-400); RBC 3.42 10^6/uL (3.93-5.22); RDW 18.8 % (11.7-14.6); RDW-SD 56.3 fL
[2024-07-22] MEDS: MULTIVITAMIN 10 ML, THIAMINE 100 MG, FOLIC ACID 1 MG in DEXTROSE 5%-0.45% SALINE 1,000 ML 42 ML IV (17:29)
[2024-07-22 17:48] LABS: PHOSPHORUS 4.2 mg/dL (2.6-4.7)
[2024-07-22 17:50] LABS: ALT 22 U/L (14-59); AST 31 U/L (15-37); Albumin 3.3 g/dL (3.4-5.0); Alkaline Phosphatase 133 U/L (46-116); Anion Gap 13.6 mmol/L (3-11); BUN 26 mg/dL (7-18); Bilirubin, Total 0.2 mg/dL (0.2-1.0); CO2 26.4 mmol/L (21.0-32.0); CREATININE 1.4 mg/dL (0.55-1.02); Calcium 8.2 mg/dL (8.5-10.1); Chloride 102 mmol/L (98-107); Estimated GFR 44.43 (mL/min/1.73m2); Glucose 84 mg/dL (74-106); Lipase 46 U/L (<78); Magnesium 2.2 mg/dL (1.8-2.4); Potassium 4.6 mmol/L (3.5-5.1); Sodium 142 mmol/L (136-145); Total Protein 7.6 g/dL (6.4-8.2); Troponin I 28 ng/L (<or=51)
[2024-07-22 17:57] LABS: ETHANOL BLOOD 357.3 mg/dL (<10)
[2024-07-22 18:33] LABS: BE (Venous) -1 mmol/L (-2-3); HCO3 (Venous) 24 mmol/L (23-28); O2 Sat (Venous) 63 %; TCO2 (Venous) 24 mmol/L (24-29); pCO2 (Venous) 42 mmHg (41-51); pH (Venous) 7.38 (7.31-7.41); pO2 (Venous) 37 mmHg
--- NOTE | 2024-07-22 18:46 | NUR.NOTE ---
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
[2024-07-22 18:52] LABS: Troponin I 25 ng/L (<or=51)
--- NOTE | 2024-07-22 19:31 | DI.CT_ITS ---
Exam(s) CT HEAD CERVICAL SPINE WO EXAM: CT HEAD CERVICAL SPINE WO CLINICAL HISTORY: fall, hit head earlier today. TECHNIQUE: Imaging Protocol: Axial computed tomography images with coronal and sagittal reformatted images were created and reviewed COMPARISON: CT CT HEAD CERVICAL SPINE WO from 08/06/2022 FINDINGS: BRAIN: There are no skull fractures evident. There is prominent mucosal thickening in the right maxillary sinus but no acute fluid level therein. The opposite-left maxillary sinus appears clear as do the other paranasal sinuses and there also no mastoid effusions evident. There is no evidence of intracranial hemorrhage, mass effect, or shift of midline structures. There are no extra-axial fluid collections. The ventricles are not enlarged or shifted and there is no blo od within the ventricular system nor within the basal cisterns. CERVICAL SPINE: There is no evidence of fracture nor listhesis. No significant prevertebral soft tissue swelling. Small accessory ossicle noted off the posterior superior tip of the odontoid is unchanged from prior 2022 study. Chronic disc space narrowing at C5-6 noted, unchanged. There is no significant facet joint malalignment. No significant osseous lesions evident. IMPRESSION: No acute intracranial findings on this noninfused CT scan of the brain. There is significant mucosal thickening in the right maxillary sinus but no fluid level therein. The opposite-left maxillary sinus is clear as are the other visualized paranasal sinuses. No evidence of cervical spine fracture, malalignment, nor acute compromise of the cervical spinal can al. Chronic degenerative changes, unchanged from prior study of July 2022. RADIATION DOSE DELIVERED: 1,178.19mGy.cm Total DLP DATA REPOSITORY: All CT scans at this facility are submitted to the National Radiology Data Registry (NRDR) Dose Index Registry (DIR) with the [employer] (ACR). RADIATION OPTIMIZATION: All CT scans at this facility use at least one of these dose optimization te chniques: automated exposure control; mA and/or kV adjustment per patient size (includes targeted exa ms where dose is matched to clinical indication); or iterative reconstruction.
--- NOTE | 2024-07-22 19:31 | DI.RAD_ITS ---
Exam(s) XR CHEST 2V PA LATERAL EXAM: XR CHEST 2V PA LATERAL CLINICAL HISTORY: cough, sob, new O2 requirement. TECHNIQUE: 2D digital imaging was performed. COMPARISON: CR,XR XR PORTABLE CHEST AP from 04/24/[address] ABDOMEN PELVIS W from 07/05/2024 FINDINGS: 2 views: Heart size is normal. The mediastinum is not widened. There mild increased markings in the left lower lobe. Right lung is clear. No pleural effusions. IMPRESSION: Subtle increased markings in left lower lobe. No obvious pleural effusions. I note that recent CT s can of 07/05/2022 revealed subacute appearing posterior left rib fractures.There is no evidence of pn eumothorax. DATA REPOSITORY: RADIATION DOSE DELIVERED:
[2024-07-22] MEDS: Lactated Ringers 1,000 ML 1000 ML IV (19:42)
[2024-07-22] MEDS: LORazepam 1 MG TAB PO/SL (19:44)
[2024-07-22] MEDS: predniSONE 20 MG TAB 60 MG PO (19:44)
[2024-07-22 19:46] LABS: Bilirubin Negative (Negative); Blood Negative (Negative); Clarity Sl Cloudy (Clear); Glucose 100 mg/dL (Negative); Ketones Negative (Negative); Leukocyte Esterase Small (Negative); Nitrite Negative (Negative); Specific Gravity 1.015 (1.005-1.025); Urobilinogen 0.2 mg/dL (Up to 0.2); pH 5.5 (5-8)
[2024-07-22 19:55] LABS: Bacteria Packed HPF (Negative); C & S Indicated? No/Sq. Contamination; Casts Negative LPF (Negative); Crystals Negative HPF (Negative); Epithelial Cells Many HPF (Negative); Mucus Negative (Negative); RBC Negative HPF (0-2)
[2024-07-22] MEDS: QUEtiapine 100 MG TAB 150 MG PO (19:59)
[2024-07-22 20:07] LABS: *AMPHETAMINES SCREEN URINE Negative (Negative); *BARBITURATES SCREEN URINE Negative (Negative); *BENZODIAZEPINES SCREEN URINE Negative (Negative); Cannabinoids THC Negative (Negative); Cocaine Screen,Urine Negative (Negative); METHADONE URINE SCREEN Negative (Negative); OPIATES URINE SCREEN Negative (Negative)
[2024-07-22 20:09] LABS: Tricyclic Antidepressants Negative (Negative)
--- NOTE | 2024-07-22 20:19 | DI.VRAD_ITS ---
PROCEDURE INFORMATION: Exam: CT Head Without Contrast Exam date and time: 07/22/2024 7:10 PM Age: 53 years old Clinical indication: Injury or trauma; Blunt trauma (contusions or hematomas); Consciousness not specified; Injury date: 07/22/24; Injury details: Fall, hit head earlier today TECHNIQUE: Imaging protocol: Computed tomography of the head without contrast. Radiation optimization: All CT scans at this facility use at least one of these dose optimization techniques: automated exposure control; mA and/or kV adjustment per patient size (includes targeted exams where dose is matched to clinical indication); or iterative reconstruction. COMPARISON: CT HEAD CERVICAL SPINE WO 08/06/2022 6:45 PM FINDINGS: Brain: Normal. No hemorrhage. Unremarkable white matter. No mass effect. Cerebral ventricles: No ventriculomegaly. Paranasal sinuses: Chronic right maxillary sinus disease. Mastoid air cells: Visualized mastoid air cells are well aerated. Bones: Unremarkable. No acute fracture. Soft tissues: Unremarkable. IMPRESSION: 1. No acute intracranial abnormalities noted. 2. Chronic right maxillary sinus disease. PROCEDURE INFORMATION: Exam: CT Cervical Spine Without Contrast Exam date and time: 07/22/2024 7:10 PM Age: 53 years old Clinical indication: Injury or trauma; Blunt trauma (contusions or hematomas); Consciousness not specified; Injury date: 07/22/24; Injury details: Fall, hit head earlier today TECHNIQUE: Imaging protocol: Computed tomography of the cervical spine without contrast. Radiation optimization: All CT scans at this facility use at least one of these dose optimization techniques: automated exposure control; mA and/or kV adjustment per patient size (includes targeted exams where dose is matched to clinical indication); or iterative reconstruction. COMPARISON: CT HEAD CERVICAL SPINE WO 08/06/2022 6:45 PM FINDINGS: Bones: Normal alignment of the cervical vertebral bodies and discs. No acute fracture. Mild osteoarthritic changes identified at C5-C6 and C6-C7. No evidence for spondylolysis or spondylolisthesis. Lungs: Lung apices are normal. Soft tissues: Unremarkable. IMPRESSION: 1. No acute fracture. 2. Mild osteoarthritic changes without underlying spinal stenosis or cord compression. Dictated and Authenticated by: Camilo De La Rosa MD. Orderin Duc Edwards MD
--- NOTE | 2024-07-22 20:58 | HPE_ITS ---
Date of service: 07/22/24 Time of Service: 20:58 Assessment and Plan Assessment and plan (1) COPD with acute exacerbation: Status: Acute Assessment and plan: - Patient noted to being wheezy on exam without chest x-ray findings - Also resulting in acute hypoxic respiratory failure (as noted below) - Given a 60 mg p.o. prednisone in the emergency department and 1 nebulizer treatment - Continue scheduled nebulizers with as needed albuterol - Continue prednisone 40 mg daily (2) Acute respiratory failure with hypoxia: Status: Acute Assessment and plan: - Secondary to COPD as noted above - Currently on 1 L nasal cannula - Wean O2 as tolerated with a goal oxygen saturation of 88 to 92% (3) ASIA (acute kidney injury): Status: Acute Assessment and plan: - Likely secondary to poor p.o. intake combination with alcohol withdrawal as noted below - Status post IV fluids - Follow-up a.m. BMP (4) Alcohol withdrawal syndrome: Status: Acute Assessment and plan: - History of significant alcohol use drinking about 1/5 of liquor a day though consumed more with last drink earlier this morning - Was given 2 mg lorazepam in the emergency department - Will transition to IV phenobarbital protocol with loading doses and as needed IV doses as per CIWA score (5) Hypertension: Status: Chronic Assessment and plan: - Hold home lisinopril in the setting of ASIA as noted above (6) Depression with anxiety: Status: Acute Assessment and plan: - Continue home citalopram and as needed hydroxyzine History of Present Illness History of Present Illness Chief Complaint: medical clearance Narrative: 53-year-old female with a past medical history of COPD, hypertension, depression, anxiety, alcohol use disorder who was brought in by law enforcement due to intoxication and eviction from her hotel. Patient states that her last alcohol drink was earlier this morning she usually drinks about 1/5 of liquor a day but she claims today she drank more than usual. She does have a history of alcohol detox while she was incarcerated was treated with IV medication but denies any seizure history but does have hallucinations while going through withdrawal. Patient also states that she is not feeling that well complaining of some chest tightness, worsening cough and wheezing from her baseline as well as is complaining of tremors, vomiting and diarrhea without any p.o. intake today. She denies any fevers, change in sputum production, headache, lightheadedness or shortness of breath. In the emergency department the patient was noted as sounding wheezy and having oxygen saturations going down to the low 80s but improved with 1 L nasal cannula. Additionally, she was noted as having tremors and anxiety likely due to alcohol withdrawal though her alcohol level was 357. Chest x-ray was performed did not show any acute findings, CBC was unremarkable but CMP showed increasing creatinine from 1-1.4. Patient was given IV fluids, 60 mg of p.o. prednisone, and 1 nebulizer treatment in addition to 2 mg of IV lorazepam. At which time emergency room provider paged hospitalist for admission for patient with acute hypoxic respiratory failure secondary to an acute exacerbation of COPD with superimposed alcohol withdrawal. Review of Systems All systems reviewed & are unremarkable except as noted in HPI and below PFSH All Active Problems (Updated 07/22/24 @ 21:04 by Gregorio Smart MD) Depression with anxiety (Acute) ASIA (acute kidney injury) (Acute) Acute respiratory failure with hypoxia (Acute) COPD with acute exacerbation (Acute) Encounter for medical clearance for patient hold (Acute) Abdominal fluid collection (Acute) Alcohol intoxication (Acute) Dyslipidemia (Acute) Hyperglycemia (Acute) Hypertension (Chronic) Alcohol withdrawal syndrome (Acute) Acute hypoxemic respiratory failure (Acute) Acute on chronic blood loss anemia (Acute) COPD with hypoxia (Acute) Fracture of rib of left side (Acute) Abdominal pain, chronic, left upper quadrant (Acute) Acute exacerbation of chronic obstructive pulmonary disease (COPD) (Acute) Alcohol intoxication in active alcoholic (Acute) Alcohol intoxication (Acute) Alcoholic gastritis without bleeding (Acute) Chronic upper gastrointestinal bleeding (Acute) Cyst and pseudocyst of pancreas (Acute) Alcohol abuse (Chronic) Heavy menses (Acute) Encounter for screening colonoscopy (Acute) Anemia (Chronic) Anxiety (Chronic) DUB (dysfunctional uterine bleeding) (Acute) Impaired fasting blood sugar (Acute 08/01/05) Obesity, unspecified (Acute 05/31/11) Atypical squamous cells of undetermined significance (ASC-US) on cervical Pap smear (Acute 08/05/09) ASCUS 08/05/09; 05/31/2011 Spinal stenosis of lumbar region (Acute 01/11/10) LS spine surg; Dr Sebastian Walker Tobacco dependence (Acute 08/01/05) Medical History DVT prophylaxis Chronic pain (02/20/09) chronic tramadol rx, back pain, sciatica despite LS surg 2009. Depression (04/03/15) Sertaline in the past with good relief of sx but then developed intolerable adverse rxns (nausea, flushing) Started on venlafaxine 03/2015 PHQ9 score = 9, indicating mild depression 03/2015 Anemia Alcohol use disorder COPD (chronic obstructive pulmonary disease) HTN (hypertension), benign Spinal stenosis Lumbar region Surgical History Internal injury, spleen, closed with IR embolization Back surgery L5-S1 decompression 2009 Family History Mother , lung cancer at age 50. No problems noted. Father , MVA No problems noted. Other Lung cancer Social History Smoking/Tobacco Use Status: Current every day Tobacco Type: cigarettes Smoking risk assessment performed?: Yes Alcohol Intake: current Alcohol Intake frequency: 3 or more drinks per day Alcohol type: beer and hard liquor Drug use: Never Substance use type: does not use Housing: other Do you feel safe at home: Yes Do you feel safe in your relationship?: Yes Meds Allergies and Home Medications Allergies Allergy/AdvReac Type Severity Reaction Status Date / Time hydromorphone (From Dilaudid) Allergy Severe Itching Verified 07/22/24 16:11 oxycodone AdvReac Unknown TERRIBLE Verified 07/22/24 16:11 DREAMS Home Medications ?Medication ?Instructions ?Recorded ?Confirmed ?Type clobetasol-emollient 0.05 % 1 applic topical DAILY PRN #60 12/08/16 07/22/24 History topical cream grams inhalational spacing device #1 ea 09/28/20 07/22/24 Rx (POCKET CHAMBER spacer) nebulizers #1 ea 03/16/21 07/22/24 Rx albuterol sulfate 2.5 mg/3 mL 2.5 mg (3 mL) inhalation Q4H PRN 01/10/23 07/22/24 Rx (0.083 %) solution for nebulization shortness of breath or wheezing #180 mL citalopram 40 mg tablet 40 mg PO DAILY #90 tabs 11/27/23 07/22/24 Rx lisinopril 20 mg tablet 20 mg PO DAILY #90 tab-caps 11/27/23 07/22/24 Rx tiotropium bromide 1.25 2 puff inhalation DAILY #4 grams 11/27/23 07/22/24 Rx mcg/actuation mist for inhalation (Spiriva Respimat) doxepin 25 mg capsule See Rx Instructions .Route 01/22/24 07/22/24 Rx .COMPLEX #60 caps cyanocobalamin (vitamin B-12) 500 500 mcg PO DAILY #30 tabs 03/13/24 07/22/24 Rx mcg tablet (Vitamin B-12) docusate sodium 100 mg capsule 100 mg PO BID #60 caps 03/13/24 07/22/24 Rx (Colace) bisacodyl 10 mg rectal suppository 10 mg MD DAILY PRN constipation 03/22/24 07/22/24 Rx lobger than 48 hours #12 ea polyethylene glycol 3350 17 17 g PO .Nightly #510 grams 03/22/24 07/22/24 Rx gram/dose oral powder (Miralax) quetiapine 100 mg tablet See Rx Instructions .Route 06/03/24 07/22/24 Rx .COMPLEX #135 tabs Hand Held Nebulizer #1 ea 06/21/24 07/22/24 Rx albuterol sulfate 90 mcg/actuation See Rx Instructions .Route 06/21/24 07/22/24 Rx aerosol inhaler (Ventolin HFA) .COMPLEX #18 grams ferrous sulfate 325 mg (65 mg 325 mg PO DAILY #30 tabs 06/21/24 07/22/24 Rx iron) tablet folic acid 1 mg tablet 1 mg PO DAILY #30 tabs 06/21/24 07/22/24 Rx hydroxyzine HCl 25 mg tablet 25 mg PO TID PRN anxiety #180 tabs 06/21/24 07/22/24 Rx pantoprazole 40 mg tablet,delayed 40 mg PO DAILY #30 tabs 06/21/24 07/22/24 Rx release (Protonix) thiamine mononitrate (vit B1) 100 100 mg PO DAILY #30 tabs 06/21/24 07/22/24 Rx mg tablet (Vitamin B-1 (mononitrate)) trazodone 50 mg tablet See Rx Instructions .Route 07/01/24 07/22/24 Rx .COMPLEX #135 tabs Exam Narrative Exam Narrative: Intoxicated, fatigued appearing female laying in bed in no acute distress, ANO x 4, oxy mask in place, heart regular rhythm, lungs with diffuse end expiratory wheezing throughout, abdomen soft, nontender, nondistended Results Labs 07/22/24 17:14 07/22/24 17:14 Labs: Laboratory Results - last 24 hr 07/22/24 07/22/24 07/22/24 17:14 18:30 19:37 WBC 4.10 L RBC 3.42 L Hgb 8.3 L Hct 28.5 L MCV 83 MCH 24.3 L MCHC 29.1 L RDW 18.8 H Plt Count 294 MPV 10.0 Immature Gran % 0.2 Neutrophils % 53.5 Lymphocytes % 32.0 Monocytes % 8.0 Eosinophils % 4.1 Basophils % 2.2 Nucleated RBC % 0.0 Absolute Neutrophils 2.19 Absolute Lymphocytes 1.31 Absolute Monocytes 0.33 Absolute Eosinophils 0.17 Absolute Basophils 0.09 VBG pH 7.38 VBG pCO2 42 VBG pO2 37 VBG HCO3 24 VBG Total CO2 24 VBG O2 Saturation 63 VBG Base Excess -1 Sodium 142 Potassium 4.6 Chloride 102 Carbon Dioxide 26.4 Anion Gap 13.6 H BUN 26 H Creatinine 1.4 H Est GFR (CKD-EPI 2020) 44.43 Glucose 84 Calcium 8.2 L Phosphorus 4.2 Magnesium 2.2 Total Bilirubin 0.2 AST 31 ALT 22 Alkaline Phosphatase 133 H Troponin I 28 25 Total Protein 7.6 Albumin 3.3 L Lipase 46 Urine Color Yellow Urine Clarity Sl Cloudy Urine pH 5.5 Ur Specific [place] 1.015 Urine Protein Trace Urine Ketones Negative Urine Blood Negative Urine Nitrite Negative Urine Bilirubin Negative Urine Urobilinogen 0.2 Ur Leukocyte Esterase Small H Urine RBC Negative Urine WBC 10-20 H Ur Epithelial Cells Many Urine Crystals Negative Urine Bacteria Packed Urine Casts Negative Urine Mucus Negative Ur Culture Indicated? No/Sq. Contamination Urine Glucose 100 H Urine Opiates Screen Negative Urine Methadone Screen Negative Ur Barbiturates Screen Negative Ur Tricyclics Screen Negative Ur Amphetamines Screen Negative U Benzodiazepines Scrn Negative Urine Cocaine Screen Negative Ur THC Screen Negative Ethyl Alcohol 357.3 H Last Vital Signs Temp 98.2 F 07/22/24 16:05 Pulse 108 H 07/22/24 20:39 Resp 19 07/22/24 20:40 BP 101/42 L 07/22/24 20:39 Pulse Ox 92 07/22/24 20:40 Time Spent Time spent with Patient: >75 minutes Time was spent: preparing to see the patient(eg.review tests), obtaining and/or reviewing separately otained hiistory, ordering medications,tests, procedures, referring, communicating with other health ocular care technician, indepentently interpreting results, counseling the patient and care coordination
--- NOTE | 2024-07-22 20:59 | DI.VRAD_ITS ---
PROCEDURE INFORMATION: Exam: XR Chest Exam date and time: 07/22/2024 7:30 PM Age: 53 years old Clinical indication: Cough and shortness of breath; Cough, SOB, new o2 requirement TECHNIQUE: Imaging protocol: Radiologic exam of the chest. Views: 2 views. COMPARISON: CR XR PORTABLE CHEST AP 04/24/2024 4:15 AM FINDINGS: Lungs: Ill-defined infiltrate in the left lower lobe possibly representing an early pneumonia. Continued follow-up is recommended. Pleural spaces: Unremarkable. No pleural effusion. No pneumothorax. Heart/Mediastinum: Unremarkable. No cardiomegaly. Bones/joints: Unremarkable. IMPRESSION: Findings suspicious for developing left lower lobe infiltrate/pneumonia. Continued follow-up is recommended. Dictated and Authenticated by: Camilo De La Rosa MD. Orderin Duc Edwards MD
[2024-07-22] MEDS: Normal Saline Flush 10 ML SYR IVP (23:40)
[2024-07-23] VITALS (47 sets, daily range): BP systolic 119–176; BP diastolic 73–115; PULSE 96–126; RESP 2–30; TEMP 37.4; O2SAT 76–100
[2024-07-23] MEDS: Albuterol/Ipratropium 3 ML UPD VIAL UPD ×4 (00:25→17:43)
[2024-07-23] MEDS: Normal Saline Flush 10 ML SYR IVP ×2 (04:34→19:51)
--- NOTE | 2024-07-23 05:47 | W.PC.ACHO ---
Registration Status: Primary Language: Preferred Language: ED Information & Data Chief Complaint ETOHWithdr 07/22/24 17:39 Chief Complaint ETOHWithdr 07/22/24 16:44 Triage Note BIB [employer] alcohol 07/22/24 16:05 withdrawal last alcohol drink 10am today wants to detox - HX of hallucinations from detox Medical / Surgical History (Last Reviewed 07/05/24 @ 21:26 by Olman Nunez MD) DVT prophylaxis Chronic pain (02/20/09) Depression (04/03/15) Anemia Alcohol use disorder COPD (chronic obstructive pulmonary disease) HTN (hypertension), benign Spinal stenosis (Last Reviewed 07/05/24 @ 21:26 by Olman Nunez MD) Internal injury, spleen, closed Back surgery Most Recent Vital Signs Temperature 37.6 C H 07/22/24 22:24 Temperature Source Temporal Artery Scan 07/22/24 22:24 Pulse 107 H 07/23/24 03:01 Pulse 108 H 07/23/24 03:01 Respiratory Rate 16 07/23/24 03:01 Respiratory Effort Normal 07/22/24 22:24 Respiratory Depth Normal 07/22/24 22:24 Respiratory Pattern Normal 07/22/24 22:24 Blood Pressure 140/93 H 07/23/24 03:01 Blood Pressure Mean 106 07/23/24 03:01 Pulse Oximetry 93 07/23/24 03:01 Oxygen Delivery Method OxyMask 07/23/24 00:25 Oxygen Flow Rate 3 07/23/24 00:25 Comment pt repeately taking NC off, nurse reapplies and redirects pt 07/22/24 17:31 Allergies hydromorphone (From Dilaudid) Allergy (Severe, Verified 07/22/24 16:11) Itching Face swelling oxycodone Adverse Reaction (Unknown, Verified 07/22/24 16:11) TERRIBLE DREAMS FROM PERCOCET Active Medications Generic Name Dose Route Start Last Admin Trade Name Freq PRN Reason Stop Dose Admin Albuterol/Ipratropium 3 ml 07/23/24 00:00 07/23/24 00:25 Albuterol/Ipratropium 3 Ml Upd Vial UPD 3 ml Q6H SHASHANK Administration Quetiapine Fumarate 150 mg 07/22/24 22:30 07/22/24 23:23 Quetiapine 50 Mg Tab PO Not Given HS SHASHANK Sodium Chloride 0 ml 07/22/24 22:30 07/23/24 04:34 Normal Saline Flush 10 Ml Syr IVP 40 ml PRN PRN Administration IV IV Catheter Type [Left Upper Saline Lock arm] IV Catheter Type [Left Forearm Saline Lock ] IV Catheter Gauge [Left Upper 20 arm] IV Catheter Gauge [Left 20 Forearm] Diet Orders Category Date Time Status Heart Healthy Eating [DIET] Nutrition 07/23/24 Breakfast Active Diagnostics 07/23/24 07/22/24 07/22/24 Range/Units 05:35 19:41 19:37 WBC Pending (4.4-10.8) 10^3/uL RBC Pending (3.93-5.22) 10^6/uL Hgb Pending (11.2-15.7) g/dL Hct Pending (36.0-46.0) % MCV Pending (80-95) fL MCH Pending (27.0-33.0) pg MCHC Pending (32.0-36.0) % RDW Pending (11.7-14.6) % Plt Count Pending (130-400) 10^3/uL MPV Pending (8.0-11.0) fL Immature Gran % % Neutrophils % % Lymphocytes % % Monocytes % % Eosinophils % % Basophils % % Nucleated RBC % (0.0-0.3) % Absolute Neutrophils (1.2-6.7) 10^3/uL Absolute Lymphocytes (1.2-3.4) 10^3/uL Absolute Monocytes (0.1-0.8) 10^3/uL Absolute Eosinophils (0.0-0.7) 10^3/uL Absolute Basophils (0.0-0.2) 10^3/uL VBG pH (7.31-7.41) VBG pCO2 (41-51) mmHg VBG pO2 mmHg VBG HCO3 (23-28) mmol/L VBG Total CO2 (24-29) mmol/L VBG O2 Saturation % VBG Base Excess (-2-3) mmol/L Sodium Pending (136-145) mmol/L Potassium Pending (3.5-5.1) mmol/L Chloride Pending (98-107) mmol/L Carbon Dioxide Pending (21.0-32.0) mmol/L Anion Gap Pending (3-11) mmol/L BUN Pending (7-18) mg/dL Creatinine Pending (0.55-1.02) mg/dL Est GFR (CKD-EPI 2020) Pending (mL/min/1.73m2) Glucose Pending (74-106) mg/dL Calcium Pending (8.5-10.1) mg/dL Phosphorus (2.6-4.7) mg/dL Magnesium (1.8-2.4) mg/dL Total Bilirubin (0.2-1.0) mg/dL AST (15-37) U/L ALT (14-59) U/L Alkaline Phosphatase (46-116) U/L Troponin I Cancelled (<or=51) ng/L Total Protein (6.4-8.2) g/dL Albumin (3.4-5.0) g/dL Lipase (<78) U/L Urine Color Yellow (Yellow) Urine Clarity Sl Cloudy (Clear) Urine pH 5.5 (5-8) Ur Specific [place] 1.015 (1.005-1.025) Urine Protein Trace (Neg-Trace) mg/dL Urine Ketones Negative (Negative) mg/dL Urine Blood Negative (Negative) Urine Nitrite Negative (Negative) Urine Bilirubin Negative (Negative) Urine Urobilinogen 0.2 (Up to 0.2) mg/dL Ur Leukocyte Esterase Small H (Negative) Urine RBC Negative (0-2) HPF Urine WBC 10-20 H (0-5) HPF Ur Epithelial Cells Many (Negative) HPF Urine Crystals Negative (Negative) HPF Urine Bacteria Packed (Negative) HPF Urine Casts Negative (Negative) LPF Urine Mucus Negative (Negative) Ur Culture Indicated? No/Sq. Contamination Urine Glucose 100 H (Negative) mg/dL Urine Opiates Screen Negative (Negative) Urine Methadone Screen Negative (Negative) Ur Barbiturates Screen Negative (Negative) Ur Tricyclics Screen Negative (Negative) Ur Amphetamines Screen Negative (Negative) U Benzodiazepines Scrn Negative (Negative) Urine Cocaine Screen Negative (Negative) Ur THC Screen Negative (Negative) Ethyl Alcohol (<10) mg/dL 07/22/24 07/22/24 Range/Units 18:30 17:14 WBC 4.10 L (4.4-10.8) 10^3/uL RBC 3.42 L (3.93-5.22) 10^6/uL Hgb 8.3 L (11.2-15.7) g/dL Hct 28.5 L (36.0-46.0) % MCV 83 (80-95) fL MCH 24.3 L (27.0-33.0) pg MCHC 29.1 L (32.0-36.0) % RDW 18.8 H (11.7-14.6) % Plt Count 294 (130-400) 10^3/uL MPV 10.0 (8.0-11.0) fL Immature Gran % 0.2 % Neutrophils % 53.5 % Lymphocytes % 32.0 % Monocytes % 8.0 % Eosinophils % 4.1 % Basophils % 2.2 % Nucleated RBC % 0.0 (0.0-0.3) % Absolute Neutrophils 2.19 (1.2-6.7) 10^3/uL Absolute Lymphocytes 1.31 (1.2-3.4) 10^3/uL Absolute Monocytes 0.33 (0.1-0.8) 10^3/uL Absolute Eosinophils 0.17 (0.0-0.7) 10^3/uL Absolute Basophils 0.09 (0.0-0.2) 10^3/uL VBG pH 7.38 (7.31-7.41) VBG pCO2 42 (41-51) mmHg VBG pO2 37 mmHg VBG HCO3 24 (23-28) mmol/L VBG Total CO2 24 (24-29) mmol/L VBG O2 Saturation 63 % VBG Base Excess -1 (-2-3) mmol/L Sodium 142 (136-145) mmol/L Potassium 4.6 (3.5-5.1) mmol/L Chloride 102 (98-107) mmol/L Carbon Dioxide 26.4 (21.0-32.0) mmol/L Anion Gap 13.6 H (3-11) mmol/L BUN 26 H (7-18) mg/dL Creatinine 1.4 H (0.55-1.02) mg/dL Est GFR (CKD-EPI 2020) 44.43 (mL/min/1.73m2) Glucose 84 (74-106) mg/dL Calcium 8.2 L (8.5-10.1) mg/dL Phosphorus 4.2 (2.6-4.7) mg/dL Magnesium 2.2 (1.8-2.4) mg/dL Total Bilirubin 0.2 (0.2-1.0) mg/dL AST 31 (15-37) U/L ALT 22 (14-59) U/L Alkaline Phosphatase 133 H (46-116) U/L Troponin I 25 28 (<or=51) ng/L Total Protein 7.6 (6.4-8.2) g/dL Albumin 3.3 L (3.4-5.0) g/dL Lipase 46 (<78) U/L Urine Color (Yellow) Urine Clarity (Clear) Urine pH (5-8) Ur Specific [place] (1.005-1.025) Urine Protein (Neg-Trace) mg/dL Urine Ketones (Negative) mg/dL Urine Blood (Negative) Urine Nitrite (Negative) Urine Bilirubin (Negative) Urine Urobilinogen (Up to 0.2) mg/dL Ur Leukocyte Esterase (Negative) Urine RBC (0-2) HPF Urine WBC (0-5) HPF Ur Epithelial Cells (Negative) HPF Urine Crystals (Negative) HPF Urine Bacteria (Negative) HPF Urine Casts (Negative) LPF Urine Mucus (Negative) Ur Culture Indicated? Urine Glucose (Negative) mg/dL Urine Opiates Screen (Negative) Urine Methadone Screen (Negative) Ur Barbiturates Screen (Negative) Ur Tricyclics Screen (Negative) Ur Amphetamines Screen (Negative) U Benzodiazepines Scrn (Negative) Urine Cocaine Screen (Negative) Ur THC Screen (Negative) Ethyl Alcohol 357.3 H (<10) mg/dL Intake and Output - 24 Hour Total 07/22/24 16:02 thru 07/23/24 05:10 Intake Total 2165.2770 Balance 2165.2770 Weight 78.5 kg Intake: IV 2165.2770 Other: Comment Patient voided unmeasured amount of unknown quality urine; patient discarded toilet tissue into commode which soaked up urine. Amount estimated to be small. Falls Risk Assessment History of Falls No History 07/22/24 22:24 Contributing Factors Impairments 07/22/24 22:24 Ambulatory Aids Independent 07/22/24 22:24 Tubes/Lines With any additional score 07/22/24 22:24 Gait Evaluation W/any additional score 07/22/24 22:24 Cognition No cognitive impairment 06/02/25 22:24 Fall Total Score 43 07/22/24 22:24 Level of Risk Moderate Risk 07/22/24 22:24 Problems (Last Reviewed 07/05/24 @ 21:26 by Olman Nunez MD) Depression with anxiety (Acute) ASIA (acute kidney injury) (Acute) Acute respiratory failure with hypoxia (Acute) COPD with acute exacerbation (Acute) Hypertension (Chronic) Alcohol withdrawal syndrome (Acute) Notes 07/22/24 18:46 Nursing Notes by Jenn Contreras Nursing Note: [employer]G advised to hang banana bag open to gravity, MAR order reflects this verbal recommendations Initialized on 07/22/24 18:46 - END OF NOTE 07/22/24 16:30 (created 07/22/24 18:31) Nursing Notes by Christine Ibarra Advised by [facility] that they heard patient fall in the bathroom. Patient states she fell and hit the back of her head. No open area noted, no loc, no neck pain. Initialized on 07/22/24 18:31 - END OF NOTE v v v v v v v v v Sending and/or Receiving Nurses: Please use comment section below to note any information pertinent to the patient hand-off not included above. Information / Comments: Report received from: Jenn Contreras RN
[2024-07-23 06:36] LABS: HCT 23.6 % (36.0-46.0); HGB 7.1 g/dL (11.2-15.7); MCHC 30.1 % (32.0-36.0); MCV 83 fL (80-95); MPV 10.8 fL (8.0-11.0); Platelet Count 234 10^3/uL (130-400); RBC 2.84 10^6/uL (3.93-5.22); RDW 18.4 % (11.7-14.6); RDW-SD 55.7 fL; WBC 2.87 10^3/uL (4.4-10.8)
[2024-07-23 07:04] LABS: Anion Gap 10.8 mmol/L (3-11); BUN 27 mg/dL (7-18); CO2 26.2 mmol/L (21.0-32.0); CREATININE 1.2 mg/dL (0.55-1.02); Calcium 8.1 mg/dL (8.5-10.1); Chloride 102 mmol/L (98-107); Estimated GFR 53.46 (mL/min/1.73m2); Glucose 204 mg/dL (74-106); Potassium 4.5 mmol/L (3.5-5.1); Sodium 139 mmol/L (136-145)
[2024-07-23] MEDS: PHENobarbital 130 MG/ML VIAL IVP ×3 (07:43→19:52)
[2024-07-23] MEDS: Pantoprazole 40 MG TABCR PO (07:44)
[2024-07-23] MEDS: Lisinopril 20 MG TAB PO (07:44)
[2024-07-23] MEDS: Citalopram 20 MG TAB 40 MG PO (07:44)
[2024-07-23] MEDS: predniSONE 20 MG TAB 40 MG PO (07:44)
[2024-07-23] MEDS: hydrOXYzine HCL 25 MG TAB PO ×2 (07:44→19:52)
[2024-07-23] MEDS: Enoxaparin 40 MG/0.4 ML SYR SC (07:44)
--- NOTE | 2024-07-23 09:26 | PDOC.CMIN ---
Date of service: 07/23/24 Time of Service: 09:26 Care Management Initial Assmt Initial Assessment Reason for Hospitalization: COPD and ETOH withdrawal Functional Status/Living Situation Patient Presentation: Adrianne was sitting up in a chair when CM met with her. She was pleasant in manner and agreeable to conversation. Adrianne is currently without housing. She had been staying at the [facility] with a voucher from [employer], however she was evicted on Monday for smoking. Adrianne has 2 grown children who both live locally. She has been estranged from her son for quite some time and is loosely in touch with her daughter. Adrianne informed CM that all of her belongings are still at the [facility]. She does not have her wallet, clothing or any of her medications and would like to get them back. CM contacted the [facility] to inquire about the process to retrieve belongings and is awaiting a call back. 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 She also needs money ($40) for minutes for her cell phone. CM placed a call to [employer] but needed to leave a message. CM provided Adrianne with a copy of the [place] Advanced Directives at her request and will facilitate their completion if needed. Town of Residence: [place] Resides with: Other (currently homeless) Significant Other/Family: Local Employment Status: Unemployed Instrumental Activities of Daily Living (ADLs): Independent Medications Medication Management: No Issues/Barriers identified Advance Directives Advance Directives: Do you have an Advance Directive: N 08/08/13 09:23 AD On File at [facility]: N 08/08/13 09:23 Date Asked 07/22/24 07/22/24 21:00 AD Date Reviewed COLST On File at [facility] COLST Date Scanned Code Status Resuscitation Status Full Code Portal Pt does not currently have a portal and education provided: No Portal Education: Patient declined (no access to a computer) Insurance Coverage/Financial Issues Insurance: Medicaid Care Team Visit Care Team Role Provider Type Paula Barboza NP Primary Care Provider NURSE PRACTITIONER Grace Martinez Emergency Provider NURSE PRACTITIONER Gregorio Smart MD Admit Provider [facility] STAFF PHYSICIAN Attending Provider Discharge Potential Discharge Needs: PCP F/U Appt Anticipated Barriers to Discharge: None Identified Patient/Family Education Needs: Review discharge instructions, discuss Ask Me Three Transportation: Private vehicle Plan: Anticipate Adrianne will be discharged back intro the community when medically cleared. She will be provided with contact information for [employer], [facility] and [facility] for various levels of support. She will follow up with her PCP and plan of care and transport via [facility]. CM will follow and continue to support discharge planning. Social Determinants of Health Screening Social Determinants of health last assessed in clinic: 07/23/24 Will the Patient Participate in the Screening?: Yes Do you worry about having a steady place to live?: yes (homeless) What is your living situation today?: I do not have steady housing Problems where you live: no known problems In the past 12 months, have you had to go without electric, gas, oil or water in your home?: choose not to answer 1. Within the past 12 months, we worried whether our food would run out before we got money to buy more.: Sometimes true 2. Within the past 12 months, the food we bought just didn't last and we didn't have money to get more.: Sometimes true Referred to:: [employer] Has lack of transportation kept you from medical appointments or from doing things needed for daily living?: no Has anyone in your life made you feel unsafe or unsupported?: yes How hard is it for you to pay for the very basics like food, housing, medical care, and heating? Would you say it is:: Very hard Do you want help finding or keeping work or a job?: I do not need or want help If for any reason you need help with day-to-day activities such as bathing, preparing meals, shopping, managing finances, etc., do you get the help you need?: I don?t need any help How often do you feel lonely or isolated from those around you?: Sometimes Do you speak a language other than Wolof at home?: No Health Related Social Needs Health related social needs: housing instability, housed, with risk of homelessness (Z59.811), food insecurity (Z59.41), material hardship(utilities) (Z59.12), problems related to housing/economic circumstances (Z59.89) and feeling lonely/isolated (Z60.8) PFSH All Active Problems (Updated 07/23/24 @ 11:44 by Elio Gregg MD) Anemia (Chronic) Pneumonia (Acute) UTI (urinary tract infection) (Acute) Depression with anxiety (Acute) ASIA (acute kidney injury) (Acute) Acute respiratory failure with hypoxia (Acute) COPD with acute exacerbation (Acute) Encounter for medical clearance for patient hold (Acute) Abdominal fluid collection (Acute) Alcohol intoxication (Acute) Dyslipidemia (Acute) Hyperglycemia (Acute) Hypertension (Chronic) Alcohol withdrawal syndrome (Acute) Acute hypoxemic respiratory failure (Acute) Acute on chronic blood loss anemia (Acute) COPD with hypoxia (Acute) Fracture of rib of left side (Acute) Abdominal pain, chronic, left upper quadrant (Acute) Acute exacerbation of chronic obstructive pulmonary disease (COPD) (Acute) Alcohol intoxication in active alcoholic (Acute) Alcohol intoxication (Acute) Alcoholic gastritis without bleeding (Acute) Chronic upper gastrointestinal bleeding (Acute) Cyst and pseudocyst of pancreas (Acute) Alcohol abuse (Chronic) Heavy menses (Acute) Encounter for screening colonoscopy (Acute) Anemia (Chronic) Anxiety (Chronic) DUB (dysfunctional uterine bleeding) (Acute) Impaired fasting blood sugar (Acute 08/01/05) Obesity, unspecified (Acute 05/31/11) Atypical squamous cells of undetermined significance (ASC-US) on cervical Pap smear (Acute 08/05/09) ASCUS 08/05/09; 05/31/2011 Spinal stenosis of lumbar region (Acute 01/11/10) LS spine surg; Dr Sebastian Walker Tobacco dependence (Acute 08/01/05) Medical History DVT prophylaxis Chronic pain (02/20/09) chronic tramadol rx, back pain, sciatica despite LS surg 2009. Depression (04/03/15) Sertaline in the past with good relief of sx but then developed intolerable adverse rxns (nausea, flushing) Started on venlafaxine 03/2015 PHQ9 score = 9, indicating mild depression 03/2015 Anemia Alcohol use disorder COPD (chronic obstructive pulmonary disease) HTN (hypertension), benign Spinal stenosis Lumbar region Surgical History Internal injury, spleen, closed with IR embolization Back surgery L5-S1 decompression 2009 Family History Mother , lung cancer at age 50. No problems noted. Father , MVA No problems noted. Other Lung cancer Social History Smoking/Tobacco Use Status: Current every day Tobacco Type: cigarettes Smoking risk assessment performed?: Yes Alcohol Intake: current Alcohol Intake frequency: 3 or more drinks per day Alcohol type: beer and hard liquor Drug use: Never Substance use type: does not use Housing: other Do you feel safe at home: Yes Do you feel safe in your relationship?: Yes
[2024-07-23] MEDS: cefTRIAXone 2 GM/50 ML BAG IVPB (10:44)
[2024-07-23] MEDS: THIAMINE 500 MG in Normal Saline 100 ML 200 MG IVPB ×2 (10:44→17:43)
[2024-07-23] MEDS: Tiotropium Bromide-Respimat 10 PUFF INH 2 PUFF IH (10:58)
[2024-07-23 11:22] LABS: HCG Qual (Urine) Negative
--- NOTE | 2024-07-23 11:33 | W.PM.PROGNOT ---
Date of Service Date of service: 07/23/24 Time of Service: 11:33 Assessment and Plan Assessment and plan (1) COPD with acute exacerbation: Status: Acute Assessment and plan: - Patient noted to being wheezy on exam without chest x-ray findings - Also resulting in acute hypoxic respiratory failure (as noted below) - Given a 60 mg p.o. prednisone in the emergency department and 1 nebulizer treatment - Continue scheduled nebulizers with as needed albuterol - Continue prednisone 40 mg daily 07/23/24 Will add abx 2/2 cxr findings worrisome for CAP. Rocephin and zmax (2) Acute respiratory failure with hypoxia: Status: Acute Assessment and plan: - Secondary to COPD as noted above - Currently on 1 L nasal cannula - Wean O2 as tolerated with a goal oxygen saturation of 88 to 92% (3) ASIA (acute kidney injury): Status: Acute Assessment and plan: - Likely secondary to poor p.o. intake combination with alcohol withdrawal as noted below - Status post IV fluids - Follow-up a.m. BMP 07/23/24 Elevated bun/cr with anemia concerning for occult bleed. Pt with hem positive stool. Will need outpatient evaluation for possible panendoscopy (4) Alcohol withdrawal syndrome: Status: Acute Assessment and plan: - History of significant alcohol use drinking about 1/5 of liquor a day though consumed more with last drink earlier this morning - Was given 2 mg lorazepam in the emergency department - Will transition to IV phenobarbital protocol with loading doses and as needed IV doses as per CIWA score 07/23/24 Continue with phenobarbital (5) Hypertension: Status: Chronic Assessment and plan: - Hold home lisinopril in the setting of ASIA as noted above 07/23/24 BP is currently 147/86, will need optimization in the outpatient setting (6) Depression with anxiety: Status: Acute Assessment and plan: - Continue home citalopram and as needed hydroxyzine (7) UTI (urinary tract infection): Status: Acute Assessment and plan: urine culture has been ordered. Currently on rocephin and zmax. (8) Pneumonia: Status: Acute Assessment and plan: blood cx pending. Abx as above. (9) Anemia: Status: Chronic Assessment and plan: recheck cbc in am. If still high will consider xfusion. By criteria, pt does not quailify at this point as she does not appear to be actively bleeding. I will add an H pylori as well Subjective Subjective Interval history since last seen: Pt seen and examined in her room this am. Pt does endorse dysuria as well as productive cough. Pt states that she has never had a colonoscopy or endoscopy Exam Narrative Exam Narrative: heent-ncat mmm eomi perrla neck-no lad no jvd cv-rrr no mrg lungs-bilat wheeze with I/E. No AMU, speaking in complete sentences abd-sntndbsa ext-no cce Objective Last Vital Signs Temp 37.4 C 07/23/24 08:44 Pulse 112 H 07/23/24 11:01 Resp 20 07/23/24 10:56 BP 147/86 H 07/23/24 07:01 Pulse Ox 93 07/23/24 10:56 Laboratory Results - last 24 hr 07/22/24 07/22/24 07/22/24 17:14 18:30 19:37 WBC 4.10 L RBC 3.42 L Hgb 8.3 L Hct 28.5 L MCV 83 MCH 24.3 L MCHC 29.1 L RDW 18.8 H Plt Count 294 MPV 10.0 Immature Gran % 0.2 Neutrophils % 53.5 Lymphocytes % 32.0 Monocytes % 8.0 Eosinophils % 4.1 Basophils % 2.2 Nucleated RBC % 0.0 Absolute Neutrophils 2.19 Absolute Lymphocytes 1.31 Absolute Monocytes 0.33 Absolute Eosinophils 0.17 Absolute Basophils 0.09 VBG pH 7.38 VBG pCO2 42 VBG pO2 37 VBG HCO3 24 VBG Total CO2 24 VBG O2 Saturation 63 VBG Base Excess -1 Sodium 142 Potassium 4.6 Chloride 102 Carbon Dioxide 26.4 Anion Gap 13.6 H BUN 26 H Creatinine 1.4 H Est GFR (CKD-EPI 2020) 44.43 Glucose 84 Calcium 8.2 L Phosphorus 4.2 Magnesium 2.2 Total Bilirubin 0.2 AST 31 ALT 22 Alkaline Phosphatase 133 H Troponin I 28 25 Total Protein 7.6 Albumin 3.3 L Lipase 46 Urine Color Yellow Urine Clarity Sl Cloudy Urine pH 5.5 Ur Specific [place] 1.015 Urine Protein Trace Urine Ketones Negative Urine Blood Negative Urine Nitrite Negative Urine Bilirubin Negative Urine Urobilinogen 0.2 Ur Leukocyte Esterase Small H Urine RBC Negative Urine WBC 10-20 H Ur Epithelial Cells Many Urine Crystals Negative Urine Bacteria Packed Urine Casts Negative Urine Mucus Negative Ur Culture Indicated? No/Sq. Contamination Urine Glucose 100 H Urine HCG, Qual Urine Opiates Screen Negative Urine Methadone Screen Negative Ur Barbiturates Screen Negative Ur Tricyclics Screen Negative Ur Amphetamines Screen Negative U Benzodiazepines Scrn Negative Urine Cocaine Screen Negative Ur THC Screen Negative Ethyl Alcohol 357.3 H 07/22/24 07/23/24 07/23/24 19:41 05:37 10:15 WBC 2.87 L RBC 2.84 L Hgb 7.1 L Hct 23.6 L MCV 83 MCH 25.0 L MCHC 30.1 L RDW 18.4 H Plt Count 234 MPV 10.8 Immature Gran % Neutrophils % Lymphocytes % Monocytes % Eosinophils % Basophils % Nucleated RBC % Absolute Neutrophils Absolute Lymphocytes Absolute Monocytes Absolute Eosinophils Absolute Basophils VBG pH VBG pCO2 VBG pO2 VBG HCO3 VBG Total CO2 VBG O2 Saturation VBG Base Excess Sodium 139 Potassium 4.5 Chloride 102 Carbon Dioxide 26.2 Anion Gap 10.8 BUN 27 H Creatinine 1.2 H Est GFR (CKD-EPI 2020) 53.46 Glucose 204 H Calcium 8.1 L Phosphorus Magnesium Total Bilirubin AST ALT Alkaline Phosphatase Troponin I Cancelled Total Protein Albumin Lipase Urine Color Urine Clarity Urine pH Ur Specific [place] Urine Protein Urine Ketones Urine Blood Urine Nitrite Urine Bilirubin Urine Urobilinogen Ur Leukocyte Esterase Urine RBC Urine WBC Ur Epithelial Cells Urine Crystals Urine Bacteria Urine Casts Urine Mucus Ur Culture Indicated? Urine Glucose Urine HCG, Qual Negative Urine Opiates Screen Urine Methadone Screen Ur Barbiturates Screen Ur Tricyclics Screen Ur Amphetamines Screen U Benzodiazepines Scrn Urine Cocaine Screen Ur THC Screen Ethyl Alcohol PAWSS Have you Been Recently Intoxicated or Drunk Within the Last 30 days?: Yes Have you Ever Experienced Previous Episodes of Alcohol Withdrawal?: Yes Have you ever Experienced Withdrawal Seizures?: No Have you ever Experienced Delirium Tremens(DT)s?: Yes Have you ever undergone Alcohol Rehabilitation Treatment (i.e, inpt ot outpatient treatment programs)?: Yes Have you ever Experienced Blackouts?: Yes Have you ever Combined Alcohol with other Downers within the last 90 days?: No Have you ever Combined Alcohol with any other Substance of Abuse during the last 90 days?: No Positive Blood Alcohol level on Presentation? [PCS.BAL]: Yes Evidence of Increased Autonomic Activity (i.e. HR>120, tremor, sweating, agitation, nausea)?: Yes Result: 7 Time Spent with Patient Time Spent with Patient: 35-49 minutes Time was spent: preparing to see the patient(eg.review tests), obtaining and/or reviewing separately otained hiistory, ordering medications,tests, procedures, referring, communicating with other health manager medicare marketing, indepentently interpreting results, counseling the patient and care coordination
[2024-07-23] MEDS: AZITHROMYCIN 500 MG in Normal Saline 250 ML 250 MG IVPB (14:18)
[2024-07-23] MEDS: Benzonatate 100 MG CAP PO ×2 (14:19→19:51)
[2024-07-23] MEDS: guaiFENesin/D-METHORPHAN HB 5 ML CUP 10 ML PO (19:52)
[2024-07-23] MEDS: guaiFENesin 600 MG TABCR PO (19:52)
[2024-07-23] MEDS: QUEtiapine 50 MG TAB 150 MG PO (19:52)
[2024-07-23] MEDS: Acetaminophen 325 MG TAB PO (19:52)
[2024-07-24] VITALS (57 sets, daily range): BP systolic 133–173; BP diastolic 83–135; PULSE 85–105; RESP 5–26; TEMP 36.5–37.4; O2SAT 94–99
[2024-07-24] MEDS: Albuterol/Ipratropium 3 ML UPD VIAL UPD ×5 (00:13→23:44)
[2024-07-24] MEDS: THIAMINE 500 MG in Normal Saline 100 ML 200 MG IVPB ×3 (02:25→17:40)
[2024-07-24] MEDS: guaiFENesin/D-METHORPHAN HB 5 ML CUP 10 ML PO ×2 (02:45→21:32)
[2024-07-24 07:15] LABS: Abs Immature Grans 0.02 10^3/uL (0.0-0.06); Absolute Basophil Count 0.02 10^3/uL (0.0-0.2); Absolute Eosinophil Count 0.01 10^3/uL (0.0-0.7); Absolute Lymphocyte Count 1.22 10^3/uL (1.2-3.4); Absolute Monocyte Count 0.66 10^3/uL (0.1-0.8); Absolute Neutrophil Count 4.39 10^3/uL (1.2-6.7); Basophils % 0.3 %; Eosinophils % 0.2 %; Immature Grans % 0.3 %; Lymphocytes % 19.3 %; MCHC 29.6 % (32.0-36.0); MCV 81 fL (80-95); MPV 11.1 fL (8.0-11.0); Monocytes % 10.4 %; Neutrophils % 69.5 %; Nucleated RBC 0.3 % (0.0-0.3); Platelet Count 193 10^3/uL (130-400); RDW 18.5 % (11.7-14.6); RDW-SD 53.5 fL; WBC 6.32 10^3/uL (4.4-10.8)
[2024-07-24 07:17] LABS: Iron 10 ug/dL (50-170); Total Iron Binding Capacity 374 ug/dL (250-450); Transferrin Sat 3 % (15-50)
[2024-07-24 07:22] LABS: HCT 20.3 % (36.0-46.0)
[2024-07-24 07:36] LABS: Diff Comment Diff Reviewed; Hypochromasia 2+
[2024-07-24 07:42] LABS: ALT 11 U/L (14-59); AST 11 U/L (15-37); Albumin 2.5 g/dL (3.4-5.0); Alkaline Phosphatase 85 U/L (46-116); BUN 32 mg/dL (7-18); Bilirubin, Total 0.1 mg/dL (0.2-1.0); CREATININE 1.4 mg/dL (0.55-1.02); Calcium 8.1 mg/dL (8.5-10.1); Chloride 101 mmol/L (98-107); Estimated GFR 44.43 (mL/min/1.73m2); Folate 6.3 ng/mL (8.6-20.0); Glucose 136 mg/dL (74-106); Potassium 3.9 mmol/L (3.5-5.1); Sodium 135 mmol/L (136-145); Vitamin B12 368 pg/mL (193-986)
[2024-07-24] MEDS: Pantoprazole 40 MG TABCR PO (07:42)
[2024-07-24] MEDS: predniSONE 20 MG TAB 40 MG PO (07:42)
[2024-07-24] MEDS: Benzonatate 100 MG CAP PO ×3 (07:42→20:12)
[2024-07-24] MEDS: Lisinopril 20 MG TAB PO (07:42)
[2024-07-24] MEDS: guaiFENesin 600 MG TABCR PO ×2 (07:42→20:12)
[2024-07-24] MEDS: Citalopram 20 MG TAB 40 MG PO (07:43)
[2024-07-24] MEDS: Enoxaparin 40 MG/0.4 ML SYR SC (07:44)
[2024-07-24 07:47] LABS: Procalcitonin < 0.10 ng/mL
[2024-07-24] MEDS: Tiotropium Bromide-Respimat 10 PUFF INH 2 PUFF IH (08:28)
--- NOTE | 2024-07-24 08:44 | W.SURGCON ---
Date of service: 07/24/24 Time of Service: 08:44 Assessment and Plan Assessment and plan (1) Anemia: Status: Chronic Assessment and plan: 53-year-old woman with a pretty chronic anemia situation in the setting of a lot of problems. She has a lot of medical problems but also has significant trauma history. Unclear what is going on with her pseudocyst but that is certainly the cause of her abdominal pain that it sounds like she has basically every day. There is no active GI bleeding. She may be seeing some blood in her stools and she does have acute on chronic anemia. However she is completely hemodynamically stable despite a hemoglobin of 6(evidence of chronicity) and really is not having any evidence anywhere of active bleeding from her mouth or from her rectum. Surgery signing off at this time. She can follow-up outpatient to schedule elective colonoscopy and upper endoscopy when she is not acutely ill for this otherwise very chronic situation. I discussed all this with the hospitalist team in person. History of Present Illness Narrative: This is a 53-year-old woman who is well?known to both the hospital as well as our surgical service from prior consultations. She is currently admitted for alcohol detox/withdrawal and has been found to have a low hemoglobin. She has had anemia in the past. She was last seen a few months ago but has not been followed up in the outpatient setting. She has a somewhat complex intra-abdominal situation with having a ruptured spleen after falling down stairs and she also has a pseudocyst. She reports that she has pain whenever she eats but it is always on the left side. She says she has basically had pain on her left side ever since the fall. She broke many ribs on the left side when she fell in addition to the spleen. In regards to her anemia, she says for few years she has noticed blood in the stool as well as in the toilet. She just assumes it is hemorrhoids. She has never had a colonoscopy. She has no family history of colon cancer. She has never thrown up any blood. She does admit that her stools are often dark and sometimes black. She thinks that she sees blood in the toilet basically every time she goes to the bathroom. PFSH All Active Problems (Updated 07/23/24 @ 11:44 by Elio Gregg MD) Anemia (Chronic) Pneumonia (Acute) UTI (urinary tract infection) (Acute) Depression with anxiety (Acute) ASIA (acute kidney injury) (Acute) Acute respiratory failure with hypoxia (Acute) COPD with acute exacerbation (Acute) Encounter for medical clearance for patient hold (Acute) Abdominal fluid collection (Acute) Alcohol intoxication (Acute) Dyslipidemia (Acute) Hyperglycemia (Acute) Hypertension (Chronic) Alcohol withdrawal syndrome (Acute) Acute hypoxemic respiratory failure (Acute) Acute on chronic blood loss anemia (Acute) COPD with hypoxia (Acute) Fracture of rib of left side (Acute) Abdominal pain, chronic, left upper quadrant (Acute) Acute exacerbation of chronic obstructive pulmonary disease (COPD) (Acute) Alcohol intoxication in active alcoholic (Acute) Alcohol intoxication (Acute) Alcoholic gastritis without bleeding (Acute) Chronic upper gastrointestinal bleeding (Acute) Cyst and pseudocyst of pancreas (Acute) Alcohol abuse (Chronic) Heavy menses (Acute) Encounter for screening colonoscopy (Acute) Anemia (Chronic) Anxiety (Chronic) DUB (dysfunctional uterine bleeding) (Acute) Impaired fasting blood sugar (Acute 08/01/05) Obesity, unspecified (Acute 05/31/11) Atypical squamous cells of undetermined significance (ASC-US) on cervical Pap smear (Acute 08/05/09) ASCUS 08/05/09; 05/31/2011 Spinal stenosis of lumbar region (Acute 01/11/10) LS spine surg; Dr Sebastian Walker Tobacco dependence (Acute 08/01/05) Medical History DVT prophylaxis Chronic pain (02/20/09) chronic tramadol rx, back pain, sciatica despite LS surg 2009. Depression (04/03/15) Sertaline in the past with good relief of sx but then developed intolerable adverse rxns (nausea, flushing) Started on venlafaxine 03/2015 PHQ9 score = 9, indicating mild depression 03/2015 Anemia Alcohol use disorder COPD (chronic obstructive pulmonary disease) HTN (hypertension), benign Spinal stenosis Lumbar region Surgical History Internal injury, spleen, closed with IR embolization Back surgery L5-S1 decompression 2009 Family History Mother , lung cancer at age 50. No problems noted. Father , MVA No problems noted. Other Lung cancer Social History Smoking/Tobacco Use Status: Current every day Tobacco Type: cigarettes Smoking risk assessment performed?: Yes Alcohol Intake: current Alcohol Intake frequency: 3 or more drinks per day Alcohol type: beer and hard liquor Drug use: Never Substance use type: does not use Housing: other Do you feel safe at home: Yes Do you feel safe in your relationship?: Yes Exam Narrative Exam Narrative: Gen: Non-toxic, comfortable and interactive Neuro: Alert and oriented x3 Psych: Seemingly good mood and affect. Reasonable insight and understanding into condition. Chest: Non-labored breathing, no wheezing, no visible shortness of breath. Heart: Regular Abdomen: Soft, nondistended and nontender. Results Last Vital Signs Temp 97.9 F 07/24/24 03:55 Pulse 98 H 07/24/24 07:51 Resp 17 07/24/24 07:51 BP 165/97 H 07/24/24 07:51 Pulse Ox 96 07/24/24 07:51 Labs 07/24/24 05:39 07/24/24 05:39 Labs: Laboratory Results - last 24 hr 07/23/24 07/24/24 07/24/24 10:15 05:39 08:08 WBC 6.32 RBC 2.50 L Hgb 6.0 L* Hct 20.3 L* MCV 81 MCH 24.0 L MCHC 29.6 L RDW 18.5 H Plt Count 193 MPV 11.1 H Immature Gran % 0.3 Neutrophils % 69.5 Lymphocytes % 19.3 Monocytes % 10.4 Eosinophils % 0.2 Basophils % 0.3 Nucleated RBC % 0.3 Absolute Neutrophils 4.39 Absolute Lymphocytes 1.22 Absolute Monocytes 0.66 Absolute Eosinophils 0.01 Absolute Basophils 0.02 RBC Morphology See Below Hypochromasia 2+ Sodium 135 L Potassium 3.9 Chloride 101 Carbon Dioxide 28.0 Anion Gap 6.0 BUN 32 H Creatinine 1.4 H Est GFR (CKD-EPI 2020) 44.43 Glucose 136 H Calcium 8.1 L Iron 10 L TIBC 374 Transferrin % Sat 3 L Total Bilirubin 0.1 L AST 11 L ALT 11 L Alkaline Phosphatase 85 Total Protein 6.0 L Albumin 2.5 L Vitamin B12 368 Folate 6.3 L Procalcitonin < 0.10 Urine HCG, Qual Negative Crossmatch See Detail
--- NOTE | 2024-07-24 09:19 | PDOC.CMPRO ---
Date of service: 07/24/24 Time of Service: 09:19 Care Management Progress Note Progress Note Text Progress Note Text: Adrianne was sitting up in bed when CM met with her. She engaged easily with CM and was pleasant and agreeable. Adrianne stated she is feeling a bit better today. She is no longer requiring supplemental oxygen and her oxygen saturation has been in the 90s on room air. Her CIWA scores remain low and she has only received one 1mg dose of Ativan today. Adrianne met with Nellie Michael from [employer] this morning who is trying to help her secure housing and possible funding for her nebulizer machine. CM contacted the [facility] and learned they have a waiting list. CM also contacted the [facility] and was told they have Adrianne's belongings and they will hold them for 7 days (until Monday). Nellie informed Adrianne that when she is discharged, [facility] will help with transportation back to [facility] to retrieve her belongings. CM provided Adrianne with contact information for the detention, [facility] and [employer]. Discharge Potential Discharge Needs: PCP F/U Appt Anticipated Barriers to Discharge: None Identified Patient/Family Education Needs: Review discharge instructions, discuss Ask Me Three Transportation: Private vehicle Plan: Anticipate Adrianne will be discharged back intro the community when medically cleared. She will be provided with contact information for [employer], [facility] and [facility] for various levels of support. She will follow up with her PCP and plan of care and transport via [facility]. CM will follow and continue to support discharge planning. Social Determinants of Health Screening Social Determinants of health last assessed in clinic: 07/24/24 Will the Patient Participate in the Screening?: Yes Do you worry about having a steady place to live?: yes (homeless) What is your living situation today?: I do not have steady housing Problems where you live: no known problems In the past 12 months, have you had to go without electric, gas, oil or water in your home?: choose not to answer 1. Within the past 12 months, we worried whether our food would run out before we got money to buy more.: Sometimes true 2. Within the past 12 months, the food we bought just didn't last and we didn't have money to get more.: Sometimes true Has lack of transportation kept you from medical appointments or from doing things needed for daily living?: no Has anyone in your life made you feel unsafe or unsupported?: yes How hard is it for you to pay for the very basics like food, housing, medical care, and heating? Would you say it is:: Very hard Do you want help finding or keeping work or a job?: I do not need or want help If for any reason you need help with day-to-day activities such as bathing, preparing meals, shopping, managing finances, etc., do you get the help you need?: I don?t need any help How often do you feel lonely or isolated from those around you?: Sometimes Do you speak a language other than Lao at home?: No Health Related Social Needs Health related social needs: housing instability, housed, with risk of homelessness (Z59.811), food insecurity (Z59.41), material hardship(utilities) (Z59.12), problems related to housing/economic circumstances (Z59.89) and feeling lonely/isolated (Z60.8)
[2024-07-24] MEDS: cefTRIAXone 2 GM/50 ML BAG IVPB (09:50)
[2024-07-24] MEDS: LORazepam 1 MG TAB PO ×3 (10:18→23:21)
[2024-07-24] MEDS: Nicotine 21 MG/24 HR PATCH TD (11:39)
--- NOTE | 2024-07-24 12:18 | PGE_ITS ---
Date of Service Date of service: 07/24/24 Time of Service: 12:18 Assessment and Plan Assessment and plan (1) COPD with acute exacerbation: Status: Acute Assessment and plan: - Patient noted to being wheezy on exam without chest x-ray findings - Also resulting in acute hypoxic respiratory failure (as noted below) - Given a 60 mg p.o. prednisone in the emergency department and 1 nebulizer treatment - Continue scheduled nebulizers with as needed albuterol - Continue prednisone 40 mg daily 07/23/24 Will add abx 2/ cxr findings worrisome for CAP. Rocephin and zmax 07/24/24 c/w inhalers/steroid prednisone 40 daily/abx rocephin and zmax (2) Acute respiratory failure with hypoxia: Status: Acute Assessment and plan: - Secondary to COPD as noted above - Currently on 1 L nasal cannula - Wean O2 as tolerated with a goal oxygen saturation of 88 to 92% (3) ASIA (acute kidney injury): Status: Acute Assessment and plan: - Likely secondary to poor p.o. intake combination with alcohol withdrawal as noted below - Status post IV fluids - Follow-up a.m. BMP 07/23/24 Elevated bun/cr with anemia concerning for occult bleed. Pt with hem positive stool. Will need outpatient evaluation for possible panendoscopy 07/24/24 Pt with hem positive stool so most likely diagnosis is GI as opposed to ASIA (4) Alcohol withdrawal syndrome: Status: Acute Assessment and plan: - History of significant alcohol use drinking about 1/5 of liquor a day though consumed more with last drink earlier this morning - Was given 2 mg lorazepam in the emergency department - Will transition to IV phenobarbital protocol with loading doses and as needed IV doses as per CIWA score 07/23/24 Continue with phenobarbital (5) Hypertension: Status: Chronic Assessment and plan: - Hold home lisinopril in the setting of SAIA as noted above 07/23/24 BP is currently 147/86, will need optimization in the outpatient setting (6) Depression with anxiety: Status: Acute Assessment and plan: - Continue home citalopram and as needed hydroxyzine (7) UTI (urinary tract infection): Status: Acute Assessment and plan: urine culture has been ordered. Currently on rocephin and zmax. 07/24/24 Awaiting culture results but doubt UTI (small LE only) (8) Pneumonia: Status: Acute Assessment and plan: blood cx pending. Abx as above. (9) Anemia: Status: Chronic Assessment and plan: recheck cbc in am. If still high will consider xfusion. By criteria, pt does not quailify at this point as she does not appear to be actively bleeding. I will add an H pylori as well 07/24/24 Did d/w GS (Adan) who recommends outpatient evaluation. I will xfuse 2 units rbc. Also, iron level is low so will start venofer. Subjective Subjective Interval history since last seen: Pt does complain of agitation which she attributes to nicotine withdrawal. Still with cough Exam Narrative Exam Narrative: heent-ncat mmm eomi perrla neck-no lad no jvd cv-rrr no mrg lungs-bilat wheeze with I/E. No AMU, speaking in complete sentences abd-sntndbsa ext-no cce Objective Last Vital Signs Temp 36.6 C 07/24/24 03:55 Pulse 100 H 07/24/24 11:25 Resp 20 07/24/24 11:19 BP 165/97 H 07/24/24 07:51 Pulse Ox 99 07/24/24 11:19 Laboratory Results - last 24 hr 07/24/24 07/24/24 05:39 09:24 WBC 6.32 RBC 2.50 L Hgb 6.0 L* Hct 20.3 L* MCV 81 MCH 24.0 L MCHC 29.6 L RDW 18.5 H Plt Count 193 MPV 11.1 H Immature Gran % 0.3 Neutrophils % 69.5 Lymphocytes % 19.3 Monocytes % 10.4 Eosinophils % 0.2 Basophils % 0.3 Nucleated RBC % 0.3 Absolute Neutrophils 4.39 Absolute Lymphocytes 1.22 Absolute Monocytes 0.66 Absolute Eosinophils 0.01 Absolute Basophils 0.02 RBC Morphology See Below Hypochromasia 2+ Sodium 135 L Potassium 3.9 Chloride 101 Carbon Dioxide 28.0 Anion Gap 6.0 BUN 32 H Creatinine 1.4 H Est GFR (CKD-EPI 2020) 44.43 Glucose 136 H Calcium 8.1 L Iron 10 L TIBC 374 Transferrin % Sat 3 L Total Bilirubin 0.1 L AST 11 L ALT 11 L Alkaline Phosphatase 85 Total Protein 6.0 L Albumin 2.5 L Vitamin B12 368 Folate 6.3 L Procalcitonin < 0.10 ABO/Rh A Positive Antibody Screen NEGATIVE Crossmatch See Detail PAWSS Have you Been Recently Intoxicated or Drunk Within the Last 30 days?: Yes Have you Ever Experienced Previous Episodes of Alcohol Withdrawal?: Yes Have you ever Experienced Withdrawal Seizures?: No Have you ever Experienced Delirium Tremens(DT)s?: Yes Have you ever undergone Alcohol Rehabilitation Treatment (i.e, inpt ot outpatient treatment programs)?: Yes Have you ever Experienced Blackouts?: Yes Have you ever Combined Alcohol with other Downers within the last 90 days?: No Have you ever Combined Alcohol with any other Substance of Abuse during the last 90 days?: No Positive Blood Alcohol level on Presentation? [PCS.BAL]: Yes Evidence of Increased Autonomic Activity (i.e. HR>120, tremor, sweating, agitation, nausea)?: Yes Result: 7 Time Spent with Patient Time Spent with Patient: 25-34 minutes Time was spent: preparing to see the patient(eg.review tests), [facility] and[facility]or [facility], ordering medications,tests, procedures, referring, communicating with other health pet care worker, indepentently interpreting results, counseling the patient and care coordination
--- NOTE | 2024-07-24 13:04 | PHA.REVIEW2 ---
Pharmacy Admission Review Admission Clinical Review Admission Pharmacy Review: Pneumonia (Acute) UTI (urinary tract infection) (Acute) Depression with anxiety (Acute) ASIA (acute kidney injury) (Acute) Acute respiratory failure with hypoxia (Acute) COPD with acute exacerbation (Acute) Alcohol withdrawal syndrome (Acute) hydromorphone (From Dilaudid) Allergy (Severe, Verified 07/22/24 16:11) Itching oxycodone Adverse Reaction (Unknown, Verified 07/22/24 16:11) TERRIBLE DREAMS Resuscitation Status Full Code Height 5 ft 3 in Weight 81.3 kg Comments Comments/Follow Ups: Follow up regarding missing home med (doxepin) Pharmacy Admission Review Renal Dosing Renal Dosing: BUN 32 mg/dL (7-18) H 07/24/24 05:39 Creatinine 1.4 mg/dL (0.55-1.02) H 07/24/24 05:39 Medications needing adjustments: Reviewed (CrCl 45.82 mL/min, BUN increased from 27 and SCr increased from 1.2) List of meds needing interventions: Current medications are okay Anticoagulation Anticoagulation: Hgb 6.0 g/dL (11.2-15.7) L* 7.1 g/dL (11.2-15.7) L 07/24/24 05:39 07/23/24 05:37 Hct 20.3 % (36.0-46.0) L* 07/24/24 05:39 Plt Count 193 10^3/uL (130-400) 07/24/24 05:39 Creatinine 1.4 mg/dL (0.55-1.02) H 07/24/24 05:39 DVT Prophylaxis: Intervened (has order for Lovenox 40mg daily. Hgb this morning was 6 and patient is receiving 2 units RBC as well as iron. Asked provider if the Lovenox should be put on hold. Provider agreed and order was put on hold) Relevant Labs Relevant Labs: Sodium 135 mmol/L (136-145) L 07/24/24 05:39 Potassium 3.9 mmol/L (3.5-5.1) 07/24/24 05:39 Chloride 101 mmol/L (98-107) 07/24/24 05:39 Phosphorus 4.2 mg/dL (2.6-4.7) 07/22/24 17:14 Magnesium 2.2 mg/dL (1.8-2.4) 07/22/24 17:14 Electrolytes, C-Reactive P, ESR: Reviewed Cardiac Review Cardiac Review: Troponin I Cancelled 07/22/24 19:41 Blood Pressure 161/83 1246 Blood Pressure 161/83 1246 Blood Pressure 173/99 1231 Blood Pressure 165/97 0751 Blood Pressure 149/87 0350 BP, HR, EF%: Reviewed (HR 97 - has ranged mid to high 90s) List meds needing interventions: Has order for lisinopril 20mg daily QTc Review QTc: Reviewed (448 from 07/22/24) IV to PO Switch IV Medications: Reviewed (ceftriaxone, phenobarbital and thiamine) Home Meds Home Med List reviewed: Intervened Relevent Home Meds Not ordered & why?: bisacodyl (PRN), clobetasol cream (PRN), vitamin B12, doxepin, ferrous sulfate, folic acid and trazodone (PRN) Asked provider if doxepin is on hold. Provider looking into it, waiting to hear back. Current Meds Current Medication Order Review: Reviewed Comments: Phenobarbital for alcohol withdrawal Soft stop: 786mg Hard stop: 1048mg Total (as of 07/24 at 1321): 920mg Patient is past soft stop - provider aware Pharmacy Antibiotic Review Relevant Labs: Relevant Labs 07/24/24 05:39 Procalcitonin < 0.10 WBC 6.32 10^3/uL (4.4-10.8) 07/24/24 05:39 Procalcitonin < 0.10 ng/mL 07/24/24 05:39 Temperature 37.3 C Temperature 37.1 C Temperature 37.1 C Temperature 37.0 C Temperature 36.6 C Temperature 36.6 C Microbiology 07/23/24 10:15 Blood Culture - Preliminary Blood NO GROWTH 24 HOURS 07/23/24 10:10 Blood Culture - Preliminary Blood NO GROWTH 24 HOURS 07/23/24 12:00 Urine Culture - Preliminary Urine - Voided Gram positive lisa 07/23/24 13:45 Stl Occult Blood Screen Specimen 3 - Final Stool Pharmacy Antibiotic Activity: C/S review and IV to PO (azithromycin) Comments: Patient is on azithromycin and ceftriaxone, day 2, for CAP/UTI. Azithromycin was changed today from IV to PO. Comments Comments/Follow Ups: Follow up regarding missing home med (doxepin)
[2024-07-24] MEDS: IRON SUCROSE COMPLEX 200 MG in Normal Saline 100 ML 400 MG IVPB (13:52)
[2024-07-24] MEDS: Azithromycin 250 MG TAB PO (13:55)
[2024-07-24] MEDS: Normal Saline Flush 10 ML SYR IVP (20:11)
[2024-07-24] MEDS: QUEtiapine 50 MG TAB 150 MG PO (20:11)
[2024-07-25] VITALS (26 sets, daily range): BP systolic 124–156; BP diastolic 82–103; PULSE 52–107; RESP 5–22; TEMP 36.8–37.2; O2SAT 86–96
[2024-07-25] MEDS: THIAMINE 500 MG in Normal Saline 100 ML 200 MG IVPB ×2 (01:50→10:20)
[2024-07-25] MEDS: guaiFENesin/D-METHORPHAN HB 5 ML CUP 10 ML PO ×3 (03:33→22:52)
[2024-07-25] MEDS: LORazepam 1 MG TAB PO (05:35)
[2024-07-25] MEDS: Albuterol/Ipratropium 3 ML UPD VIAL UPD ×4 (06:00→22:52)
[2024-07-25 07:35] LABS: Abs Immature Grans 0.03 10^3/uL (0.0-0.06); Absolute Basophil Count 0.03 10^3/uL (0.0-0.2); Absolute Eosinophil Count 0.03 10^3/uL (0.0-0.7); Absolute Lymphocyte Count 1.88 10^3/uL (1.2-3.4); Absolute Monocyte Count 0.72 10^3/uL (0.1-0.8); Absolute Neutrophil Count 6.18 10^3/uL (1.2-6.7); Basophils % 0.3 %; Eosinophils % 0.3 %; HCT 28.4 % (36.0-46.0); HGB 8.9 g/dL (11.2-15.7); Immature Grans % 0.3 %; Lymphocytes % 21.2 %; MCH 25.5 pg (27.0-33.0); MCHC 31.3 % (32.0-36.0); MCV 81 fL (80-95); MPV 11.4 fL (8.0-11.0); Monocytes % 8.1 %; Neutrophils % 69.8 %; Nucleated RBC 0.2 % (0.0-0.3); Platelet Count 170 10^3/uL (130-400); RBC 3.49 10^6/uL (3.93-5.22); RDW 17.5 % (11.7-14.6); RDW-SD 51.1 fL; WBC 8.87 10^3/uL (4.4-10.8)
[2024-07-25] MEDS: Lisinopril 20 MG TAB PO (08:20)
[2024-07-25] MEDS: Pantoprazole 40 MG TABCR PO (08:20)
[2024-07-25] MEDS: Tiotropium Bromide-Respimat 10 PUFF INH 2 PUFF IH (08:20)
[2024-07-25] MEDS: predniSONE 20 MG TAB 40 MG PO (08:20)
[2024-07-25] MEDS: Benzonatate 100 MG CAP PO ×3 (08:21→20:38)
[2024-07-25] MEDS: guaiFENesin 600 MG TABCR PO ×2 (08:21→20:38)
[2024-07-25] MEDS: Citalopram 20 MG TAB 40 MG PO (08:21)
[2024-07-25] MEDS: Normal Saline Flush 10 ML SYR IVP ×2 (08:21→20:40)
--- NOTE | 2024-07-25 08:42 | RESPIRATORY ---
07/25/2024 Pt states she is SOB this morning especially when she moves around and she says she is more SOB than normal. She has a persistent productive cough which is more persistent than normal. Patient last saw a financial writer 30 years ago. Pt is not sure if she has had a PFT but she thinks that she did. Pt does not feel she needs her rescue inhaler now but would like to a spacer to go home with.
--- NOTE | 2024-07-25 08:59 | PDOC.CMPRO ---
Date of service: 07/25/24 Time of Service: 08:59 Care Management Progress Note Progress Note Text Progress Note Text: Adrianne was sitting up in bed when CM met with her. She had just had her hair washed and informed CM that she is feeling much better. Adrianne's CIWA scores have been low and she is no longer requiring supplemental oxygen. Adrianne's H&H dropped to 6/20 yesterday and she received 2 units of blood. Adrianne requested to be discharged today, however the provider prefers to keep her one more night to make sure she remains hemodynamically stable. Nellie from [facility] visited with Adrianne again this morning and has been providing support for some of her social issues, such as transportation. Discharge Potential Discharge Needs: PCP F/U Appt Anticipated Barriers to Discharge: SDOH (patient is homeless and needs access to electricity for nebulizer) Patient/Family Education Needs: Review discharge instructions, discuss Ask Me Three Transportation: Private vehicle Plan: Anticipate Adrianne will be discharged back intro the community when medically cleared. She has been provided with contact information for [employer], [facility] and [facility] for various levels of support. She will follow up with her PCP and plan of care and transport via [facility]. CM will follow and continue to support discharge planning. Social Determinants of Health Screening Social Determinants of health last assessed in clinic: 07/25/24 Will the Patient Participate in the Screening?: Yes Do you worry about having a steady place to live?: yes (homeless) What is your living situation today?: I do not have steady housing Problems where you live: no known problems In the past 12 months, have you had to go without electric, gas, oil or water in your home?: choose not to answer 1. Within the past 12 months, we worried whether our food would run out before we got money to buy more.: Sometimes true 2. Within the past 12 months, the food we bought just didn't last and we didn't have money to get more.: Sometimes true Has lack of transportation kept you from medical appointments or from doing things needed for daily living?: no Has anyone in your life made you feel unsafe or unsupported?: yes How hard is it for you to pay for the very basics like food, housing, medical care, and heating? Would you say it is:: Very hard Do you want help finding or keeping work or a job?: I do not need or want help If for any reason you need help with day-to-day activities such as bathing, preparing meals, shopping, managing finances, etc., do you get the help you need?: I don?t need any help How often do you feel lonely or isolated from those around you?: Sometimes Do you speak a language other than Syriac at home?: No Health Related Social Needs Health related social needs: housing instability, housed, with risk of homelessness (Z59.811), food insecurity (Z59.41), material hardship(utilities) (Z59.12), problems related to housing/economic circumstances (Z59.89) and feeling lonely/isolated (Z60.8)
[2024-07-25 09:53] LABS: ALT 15 U/L (14-59); AST 13 U/L (15-37); Albumin 3.1 g/dL (3.4-5.0); Alkaline Phosphatase 90 U/L (46-116); Anion Gap 10.7 mmol/L (3-11); BUN 22 mg/dL (7-18); Bilirubin, Total 0.2 mg/dL (0.2-1.0); CO2 25.3 mmol/L (21.0-32.0); CREATININE 1.2 mg/dL (0.55-1.02); Calcium 8.5 mg/dL (8.5-10.1); Chloride 99 mmol/L (98-107); Estimated GFR 53.46 (mL/min/1.73m2); Glucose 146 mg/dL (74-106); Potassium 4.2 mmol/L (3.5-5.1); Sodium 135 mmol/L (136-145)
[2024-07-25] MEDS: IRON SUCROSE COMPLEX 300 MG in Normal Saline 250 ML 167 MG IVPB (10:19)
[2024-07-25] MEDS: cefTRIAXone 2 GM/50 ML BAG IVPB (10:19)
[2024-07-25] MEDS: Budesonide/Formoterol 160/4.5 6 GM 60 PUFF INH IH ×2 (11:32→20:38)
[2024-07-25] MEDS: Folic Acid 1 MG TAB PO (12:40)
[2024-07-25] MEDS: Azithromycin 250 MG TAB PO (13:56)
--- NOTE | 2024-07-25 14:43 | W.PM.PROGNOT ---
Date of Service Date of service: 07/25/24 Time of Service: 14:43 Assessment and Plan Assessment and plan (1) COPD with acute exacerbation: Status: Acute Assessment and plan: Started on prednisone on admission 07/23 added Rocephin and azithromycin, continue along with nebs (2) Acute respiratory failure with hypoxia: Status: Acute Assessment and plan: - Secondary to COPD as noted above - Off O2 as of 07/25, transfusion likely also helped. (3) ASIA (acute kidney injury): Status: Acute Assessment and plan: - Likely secondary to poor p.o. intake combination with alcohol withdrawal as noted below - Status post IV fluids and blood, improving, follow (4) Alcohol withdrawal syndrome: Status: Acute Assessment and plan: Has responded well to phenobarbital protocol. Now scoring lower. Continue to monitor. Can go to floor status. 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 Abx as above. Respiratory status imrpoving. (8) Anemia: Status: Chronic Assessment and plan: Consulted surgery (Adan) who recommends outpatient evaluation. h. pylori pending. On pantoprazole. Stable after 2 units 07/24. Iron confirmed low, likely some chornic GI loss. Give another dose Iron sucrose today. Follow in AM. (9) DVT prophylaxis: Assessment and plan: SCDs given concern for possible GI bleed and anemia. Ambulate. Subjective Subjective Patient reports: no new complaints and tolerating a regular diet; denies diarrhea, nausea, vomiting or fever Interval history since last seen: Events: s/p 2 units PRBC and 200mg venofer She feels a little better today after getting blood. Less SOB, needing less oxygen. She is eating some. She is still getting anxious and shakey a little. She hasn't noted bleeding. Exam Narrative Exam Narrative: gen: Alert and oriented, NAD heent- mmm, no icterus cv-rrr no mrg lungs-bilat wheeze with I/E. No rales, normal effort, speaking in complete sentences abd-soft, NT/ND ext-no cce Objective Last Vital Signs Temp 36.8 C 07/25/24 07:46 Pulse 98 H 07/25/24 11:48 Resp 15 07/25/24 12:00 BP 141/95 H 07/25/24 09:56 Pulse Ox 95 07/25/24 11:32 Laboratory Results - last 24 hr 07/24/24 07/25/24 07/25/24 09:24 05:30 09:00 WBC 8.87 RBC 3.49 L Hgb 8.9 L D Hct 28.4 L MCV 81 MCH 25.5 L MCHC 31.3 L RDW 17.5 H Plt Count 170 MPV 11.4 H Immature Gran % 0.3 Neutrophils % 69.8 Lymphocytes % 21.2 Monocytes % 8.1 Eosinophils % 0.3 Basophils % 0.3 Nucleated RBC % 0.2 Absolute Neutrophils 6.18 Absolute Lymphocytes 1.88 Absolute Monocytes 0.72 Absolute Eosinophils 0.03 Absolute Basophils 0.03 Sodium Cancelled 135 L Potassium Cancelled 4.2 Chloride Cancelled 99 Carbon Dioxide Cancelled 25.3 Anion Gap Cancelled 10.7 BUN Cancelled 22 H Creatinine Cancelled 1.2 H Est GFR (CKD-EPI 2020) Cancelled 53.46 Glucose Cancelled 146 H Calcium Cancelled 8.5 Total Bilirubin Cancelled 0.2 AST Cancelled 13 L ALT Cancelled 15 Alkaline Phosphatase Cancelled 90 Total Protein Cancelled 7.0 Albumin Cancelled 3.1 L ABO/Rh A Positive Antibody Screen NEGATIVE Crossmatch See Detail PAWSS Have you Been Recently Intoxicated or Drunk Within the Last 30 days?: Yes Have you Ever Experienced Previous Episodes of Alcohol Withdrawal?: Yes Have you ever Experienced Withdrawal Seizures?: No Have you ever Experienced Delirium Tremens(DT)s?: Yes Have you ever undergone Alcohol Rehabilitation Treatment (i.e, inpt ot outpatient treatment programs)?: Yes Have you ever Experienced Blackouts?: Yes Have you ever Combined Alcohol with other Downers within the last 90 days?: No Have you ever Combined Alcohol with any other Substance of Abuse during the last 90 days?: No Positive Blood Alcohol level on Presentation? [PCS.BAL]: Yes Evidence of Increased Autonomic Activity (i.e. HR>120, tremor, sweating, agitation, nausea)?: Yes Result: 7 Time Spent with Patient Time Spent with Patient: >50 minutes Time was spent: preparing to see the patient(eg.review tests), obtaining and/or reviewing separately otained hiistory, ordering medications,tests, procedures, referring, communicating with other health childcare center director, indepentently interpreting results, counseling the patient and care coordination
[2024-07-25] MEDS: Nicotine 21 MG/24 HR PATCH TD (15:45)
--- NOTE | 2024-07-25 18:13 | W.PC.ACHO ---
Registration Status: Primary Language: Preferred Language: ED Information & Data Chief Complaint ETOHWithdr 07/22/24 17:39 Chief Complaint ETOHWithdr 07/22/24 16:44 Triage Note BIB [employer] alcohol 07/22/24 16:05 withdrawal last alcohol drink 10am today wants to detox - HX of hallucinations from detox Medical / Surgical History (Last Reviewed 07/05/24 @ 21:26 by Olman Nunez MD) DVT prophylaxis Chronic pain (02/20/09) Depression (04/03/15) Anemia Alcohol use disorder COPD (chronic obstructive pulmonary disease) HTN (hypertension), benign Spinal stenosis (Last Reviewed 07/05/24 @ 21:26 by Olman Nunez MD) Internal injury, spleen, closed Back surgery Most Recent Vital Signs Temperature 37.1 C 07/25/24 18:07 Temperature Source Temporal Artery Scan 07/25/24 18:07 Pulse 87 07/25/24 18:07 Pulse 103 H 07/25/24 12:00 Respiratory Rate 20 07/25/24 18:07 Respiratory Effort Normal 07/22/24 22:24 Respiratory Depth Normal 07/22/24 22:24 Respiratory Pattern Normal 07/22/24 22:24 Blood Pressure 155/86 H 07/25/24 18:07 Blood Pressure Mean 109 07/25/24 18:07 Pulse Oximetry 95 07/25/24 18:07 Oxygen Delivery Method Room Air 07/25/24 18:07 Oxygen Flow Rate 0 07/25/24 18:07 Pain Level 0 07/25/24 18:07 Comment pt repeately taking NC off, nurse reapplies and redirects pt 07/22/24 17:31 Allergies hydromorphone (From Dilaudid) Allergy (Severe, Verified 07/22/24 16:11) Itching Face swelling oxycodone Adverse Reaction (Unknown, Verified 07/22/24 16:11) TERRIBLE DREAMS FROM PERCOCET Active Medications Generic Name Dose Route Start Last Admin Trade Name Freq PRN Reason Stop Dose Admin Acetaminophen 325 - 650 mg 07/22/24 22:13 07/23/24 19:52 Acetaminophen 325 Mg Tab PO 650 mg Q4H PRN PRN Administration Albuterol/Ipratropium 3 ml 07/23/24 00:00 07/25/24 11:32 Albuterol/Ipratropium 3 Ml Upd Vial UPD 3 ml Q6H SHASHANK Administration Azithromycin 250 mg 07/24/24 14:00 07/25/24 13:56 Azithromycin 250 Mg Tab PO 250 mg Q24H SHASHANK Administration Benzonatate 100 mg 07/23/24 14:00 07/25/24 13:55 Benzonatate 100 Mg Cap PO 100 mg TID SHASHANK Administration Budesonide/Formoterol Fumarate 2 puff 07/25/24 10:00 07/25/24 11:32 Budesonide/Formoterol 160/4.5 6 Gm 60 Puff Inh IH 2 puff BID SHASHANK Administration Citalopram Hydrobromide 40 mg 07/23/24 08:30 07/25/24 08:21 Citalopram 20 Mg Tab PO 40 mg DAILY SHASHANK Administration Guaifenesin 600 mg 07/23/24 20:00 07/25/24 08:21 Guaifenesin 600 Mg Tabcr PO 600 mg BID SHASHANK Administration Guaifenesin/Dextromethorphan 10 ml 07/23/24 11:31 07/25/24 15:47 Guaifenesin/D-Methorphan Hb 5 Ml Cup PO 10 ml Q6H PRN PRN Administration Hydroxyzine HCl 25 mg 07/22/24 22:13 07/23/24 19:52 Hydroxyzine Hcl 25 Mg Tab PO 25 mg TID PRN PRN Administration anxiety Ceftriaxone Sodium/Dextrose 2 gm in 50 mls @ 100 mls/hr 07/23/24 10:00 07/25/24 10:49 Rocephin IVPB Infused Q24H SHASHANK Infusion Lisinopril 20 mg 07/23/24 08:30 07/25/24 08:20 Lisinopril 20 Mg Tab PO 20 mg DAILY SHASHANK Administration Nicotine 21 mg 07/24/24 11:13 07/25/24 15:45 Nicotine 21 Mg/24 Hr Patch TD 21 mg DAILY PRN PRN Administration Pantoprazole Sodium 40 mg 07/23/24 07:30 07/25/24 08:20 Pantoprazole 40 Mg Tabcr PO 40 mg 0730 SHASHANK Administration Phenobarbital Sodium 130 mg 07/22/24 22:13 07/23/24 19:52 Phenobarbital 130 Mg/Ml Vial IVP 130 mg DIRECTED PRN Administration for mild anxiety/agitation Prednisone 40 mg 07/23/24 08:30 07/25/24 08:20 Prednisone 20 Mg Tab PO 40 mg DAILY SHASHANK Administration Quetiapine Fumarate 150 mg 07/22/24 22:30 07/24/24 20:11 Quetiapine 50 Mg Tab PO 150 mg HS SHASHANK Administration Sodium Chloride 0 ml 07/22/24 22:30 07/25/24 08:21 Normal Saline Flush 10 Ml Syr IVP 20 ml PRN PRN Administration Tiotropium [place] 2 puff 07/23/24 08:30 07/25/24 08:20 Tiotropium [place]-Respimat 10 Puff Inh IH 2 puff DAILY SHASHANK Administration IV IV Catheter Type [Right] Peripheral IV IV Catheter Type [Right Peripheral IV Forearm] IV Catheter Type [Left Upper Saline Lock arm] IV Catheter Type [Left Forearm Saline Lock ] IV Catheter Gauge [Right] 18 IV Catheter Gauge [Right 18 Forearm] IV Catheter Gauge [Left Upper 20 arm] IV Catheter Gauge [Left 20 Forearm] Diagnostics 07/25/24 07/25/24 07/24/24 Range/Units 09:00 05:30 09:24 WBC 8.87 (4.4-10.8) 10^3/uL RBC 3.49 L (3.93-5.22) 10^6/uL Hgb 8.9 L D (11.2-15.7) g/dL Hct 28.4 L (36.0-46.0) % MCV 81 (80-95) fL MCH 25.5 L (27.0-33.0) pg MCHC 31.3 L (32.0-36.0) % RDW 17.5 H (11.7-14.6) % Plt Count 170 (130-400) 10^3/uL MPV 11.4 H (8.0-11.0) fL Immature Gran % 0.3 % Neutrophils % 69.8 % Lymphocytes % 21.2 % Monocytes % 8.1 % Eosinophils % 0.3 % Basophils % 0.3 % Nucleated RBC % 0.2 (0.0-0.3) % Absolute Neutrophils 6.18 (1.2-6.7) 10^3/uL Absolute Lymphocytes 1.88 (1.2-3.4) 10^3/uL Absolute Monocytes 0.72 (0.1-0.8) 10^3/uL Absolute Eosinophils 0.03 (0.0-0.7) 10^3/uL Absolute Basophils 0.03 (0.0-0.2) 10^3/uL Sodium 135 L Cancelled Potassium 4.2 Cancelled Chloride 99 Cancelled Carbon Dioxide 25.3 Cancelled Anion Gap 10.7 Cancelled BUN 22 H Cancelled Creatinine 1.2 H Cancelled Est GFR (CKD-EPI 2020) 53.46 Cancelled Glucose 146 H Cancelled Calcium 8.5 Cancelled Total Bilirubin 0.2 Cancelled AST 13 L Cancelled ALT 15 Cancelled Alkaline Phosphatase 90 Cancelled Total Protein 7.0 Cancelled Albumin 3.1 L Cancelled Crossmatch See Detail 07/23/24 10:15 Blood Culture - Preliminary Blood NO GROWTH 48 HOURS 07/23/24 10:10 Blood Culture - Preliminary Blood NO GROWTH 48 HOURS 07/23/24 12:00 Urine Culture - Final Urine - Voided Gram positive lisa, mixed 07/25/24 05:20 Urine Culture - Pending Urine - Clean Catch Intake and Output - 24 Hour Total 07/22/24 16:02 thru 07/25/24 18:08 Intake Total 9715.2770 Output Total 4200 Balance 5515.2770 Weight 82.1 kg Intake: IV 3780.2770 Oral 5260 Blood Product 675 Rbc Leuko Reduced Unit 350 [id number] Rbc Leuko Reduced Unit 325 [id number] Output: Urine 4050 Stool 150 Other: Urine Color Yellow Urine Appearance Clear Urine Odor None Comment Small, unmeasured amount. Toilet paper absorbed most of urine. Stool Size Small Stool Characteristics Formed Falls Risk Assessment History of Falls No History 07/22/24 22:24 Contributing Factors Impairments 07/22/24 22:24 Ambulatory Aids Independent 07/22/24 22:24 Tubes/Lines With any additional score 07/22/24 22:24 Gait Evaluation W/any additional score 07/22/24 22:24 Cognition No cognitive impairment 07/22/24 22:24 Fall Total Score 43 07/22/24 22:24 Level of Risk Moderate Risk 07/22/24 22:24 Problems (Last Reviewed 07/05/24 @ 21:26 by Olman Nunez MD) Anemia (Chronic) Pneumonia (Acute) UTI (urinary tract infection) (Acute) Depression with anxiety (Acute) ASIA (acute kidney injury) (Acute) Acute respiratory failure with hypoxia (Acute) COPD with acute exacerbation (Acute) Hypertension (Chronic) Alcohol withdrawal syndrome (Acute) Notes 07/25/24 08:42 Respiratory by Magda Samson 07/25/2024 Pt states she is SOB this morning especially when she moves around and she says she is more SOB than normal. She has a persistent productive cough which is more persistent than normal. Patient last saw a slate mixer 30 years ago. Pt is not sure if she has had a PFT but she thinks that she did. Pt does not feel she needs her rescue inhaler now but would like to a spacer to go home with. Initialized on 07/25/24 08:42 - END OF NOTE 07/22/24 18:46 Nursing Notes by Jenn Contreras Nursing Note: [employer] AEG advised to hang banana bag open to gravity, MAR order reflects this verbal recommendations Initialized on 07/22/24 18:46 - END OF NOTE 07/22/24 16:30 (created 07/22/24 18:31) Nursing Notes by Christine Ibarra Advised by [facility] that they heard patient fall in the bathroom. Patient states she fell and hit the back of her head. No open area noted, no loc, no neck pain. Initialized on 07/22/24 18:31 - END OF NOTE v v v v v v v v v Sending and/or Receiving Nurses: Please use comment section below to note any information pertinent to the patient hand-off not included above. Information / Comments: A&Ox4, independent in rm, continent of bowel and bladder, stools are now more formed today, will need outpatient colo d/t gi bleed and need for blood and iron infusions. received 2 units PRBC yesterday and 1 bag iron yesterday and one today, expiratory wheezing productive cough, teslon pears help, Q6 nebs, tachycardia at times, 0-1 on CIWA, on abx for pneumonia, 18G DANICA, 20G RAC Report received from: Melissa MARTINEZ in ICU at 1750,
[2024-07-25] MEDS: QUEtiapine 50 MG TAB 150 MG PO (20:38)
[2024-07-25] MEDS: hydrOXYzine HCL 25 MG TAB PO (21:10)
[2024-07-25] MEDS: traZODone 50 MG TAB 75 MG PO (21:10)
[2024-07-26] VITALS (8 sets, daily range): BP systolic 134–162; BP diastolic 79–96; PULSE 84–105; RESP 5–20; TEMP 37–37.2; O2SAT 92–96
[2024-07-26] MEDS: Albuterol/Ipratropium 3 ML UPD VIAL UPD ×3 (05:29→18:10)
[2024-07-26 06:52] LABS: HCT 26.1 % (36.0-46.0); HGB 7.9 g/dL (11.2-15.7); MCHC 30.3 % (32.0-36.0); MCV 83 fL (80-95); MPV 10.5 fL (8.0-11.0); Platelet Count 189 10^3/uL (130-400); RBC 3.16 10^6/uL (3.93-5.22); RDW 17.6 % (11.7-14.6); RDW-SD 52.2 fL; WBC 7.56 10^3/uL (4.4-10.8)
[2024-07-26 07:02] LABS: Anion Gap 7.7 mmol/L (3-11); BUN 23 mg/dL (7-18); CO2 27.3 mmol/L (21.0-32.0); CREATININE 1.2 mg/dL (0.55-1.02); Calcium 8.5 mg/dL (8.5-10.1); Chloride 102 mmol/L (98-107); Estimated GFR 53.46 (mL/min/1.73m2); Glucose 115 mg/dL (74-106); Magnesium 1.7 mg/dL (1.8-2.4); Potassium 3.8 mmol/L (3.5-5.1); Sodium 137 mmol/L (136-145)
[2024-07-26] MEDS: Tiotropium Bromide-Respimat 10 PUFF INH 2 PUFF IH (07:51)
[2024-07-26] MEDS: Budesonide/Formoterol 160/4.5 6 GM 60 PUFF INH IH ×2 (08:31→20:23)
[2024-07-26] MEDS: Citalopram 20 MG TAB 40 MG PO (08:46)
[2024-07-26] MEDS: predniSONE 20 MG TAB 40 MG PO (08:46)
[2024-07-26] MEDS: Thiamine 100 MG TAB PO (08:46)
[2024-07-26] MEDS: Lisinopril 20 MG TAB PO (08:46)
[2024-07-26] MEDS: Folic Acid 1 MG TAB PO (08:46)
[2024-07-26] MEDS: Multivitamin TAB 1 TAB PO (08:46)
[2024-07-26] MEDS: Pantoprazole 40 MG TABCR PO (08:47)
[2024-07-26] MEDS: guaiFENesin 600 MG TABCR PO ×2 (08:47→19:54)
[2024-07-26] MEDS: Benzonatate 100 MG CAP PO ×3 (08:47→19:54)
[2024-07-26] MEDS: hydrOXYzine HCL 25 MG TAB PO (08:54)
[2024-07-26] MEDS: IRON SUCROSE COMPLEX 300 MG in Normal Saline 250 ML 167 MG IVPB (09:18)
[2024-07-26] MEDS: cefTRIAXone 2 GM/50 ML BAG IVPB (11:14)
--- NOTE | 2024-07-26 13:27 | CMPROGNOTE_ITS ---
Date of service: 07/26/24 Time of Service: 13:27 Care Management Progress Note Progress Note Text Progress Note Text: Adrianne was sitting up on the side of her bed when CM met with her. She was just finishing her lunch and appeared to be in good spirits. Adrianne was going to be discharged yesterday but since her H&H dropped the day before and she received 2 units of blood, the provider preferred to continue to monitor her for a bit longer. Adrianne stated that she is feeling really fatigued today so will likely remain another day. [employer] has offered to pay for transportation for Adrianne to get back to the [facility] where her belongings are located. Since Shadi renae will likely discharge over the weekend, CM will contact [facility] [employer] when she is discharged and have the fee charged to [employer]. CM spoke to Twan Evans, Adrianne's new [facility]] coordinator of library services, regarding housing. She was not sure if Adrianne would be eligible for another voucher since she was asked to leave the [facility], but encouraged her to call 211 at discharge. Adrianne reported that she has loaned her car to friends who are staying at [facility] and that she needs to get it back. She will decide tonight if she wants transportation to [facility] or to the [facility] and arrangements will be made accordingly. She can only be transported to one. She will also need to stop at [facility] to crop picker her nebulizer and any new medications ordered. Discharge Potential Discharge Needs: PCP F/U Appt and Other (lack of housing) Anticipated Barriers to Discharge: None Identified Patient/Family Education Needs: Review discharge instructions, discuss Ask Me Three Transportation: RCT Plan: Anticipate Adrianne will be discharged back intro the community when medically cleared. She has been provided with contact information for [employer], [employer] and [facility] for various levels of support. She will follow up with her PCP and plan of care and transport via RCT. CM will follow and continue to support discharge planning. Social Determinants of Health Screening Social Determinants of health last assessed in clinic: 07/26/24 Will the Patient Participate in the Screening?: Yes Do you worry about having a steady place to live?: yes (homeless) What is your living situation today?: I do not have steady housing Problems where you live: no known problems In the past 12 months, have you had to go without electric, gas, oil or water in your home?: choose not to answer 1. Within the past 12 months, we worried whether our food would run out before we got money to buy more.: Sometimes true 2. Within the past 12 months, the food we bought just didn't last and we didn't have money to get more.: Sometimes true Has lack of transportation kept you from medical appointments or from doing things needed for daily living?: no Has anyone in your life made you feel unsafe or unsupported?: yes How hard is it for you to pay for the very basics like food, housing, medical care, and heating? Would you say it is:: Very hard Do you want help finding or keeping work or a job?: I do not need or want help If for any reason you need help with day-to-day activities such as bathing, preparing meals, shopping, managing finances, etc., do you get the help you need?: I don?t need any help How often do you feel lonely or isolated from those around you?: Sometimes Do you speak a language other than Telugu at home?: No Health Related Social Needs Health related social needs: housing instability, housed, with risk of homelessness (Z59.811), food insecurity (Z59.41), material hardship(utilities) (Z59.12), problems related to housing/economic circumstances (Z59.89) and feeling lonely/isolated (Z60.8)
[2024-07-26 14:16] LABS: Helicobacter pylori Ag, Feces Positive (Negative)
[2024-07-26] MEDS: Azithromycin 250 MG TAB PO (14:23)
--- NOTE | 2024-07-26 18:35 | W.PM.PROGNOT ---
Date of Service Date of service: 07/26/24 Time of Service: 12:55 Assessment and Plan Assessment and plan (1) GI bleed: Status: Chronic Assessment and plan: In setting of EtOH, likely upper. Likely subacute as no gross blood but hemacult positive Hgb dropped 1g/dL overnight, I would like to repeat in AM before sending her home Consulted surgery (Adan) who recommends outpatient evaluation. h. pylori pending COntinue PPI Plan outpatient EDG/colo unless she continues to bleed. (2) COPD with acute exacerbation: Status: Acute Assessment and plan: Started on prednisone on admission 07/23 added Rocephin and azithromycin, continue for 5 days along with nebs (3) Acute respiratory failure with hypoxia: Status: Acute Assessment and plan: - Secondary to COPD as noted above - Off O2 as of 07/25, transfusion likely also helped, stable today. (4) ASIA (acute kidney injury): Status: Acute Assessment and plan: - Likely secondary to poor p.o. intake combination with alcohol withdrawal as noted below - Status post IV fluids and blood, improving, but Cr stabilized at 1.2 (5) Alcohol withdrawal syndrome: Status: Acute Assessment and plan: Has responded well to phenobarbital protocol, now no longer significant symptoms. (6) Depression with anxiety: Status: Acute Assessment and plan: - Continue home citalopram and as needed hydroxyzine, outpatient quetiapine - Avood lorazepam as on phenobarb protocol and poor retirement medication for her with AUD (7) Pneumonia: Status: Acute Assessment and plan: blood cx NG. Abx as above. Respiratory status imrpoving. (8) Anemia: Status: Chronic Assessment and plan: Iron confirmed low, likely some chornic GI loss. Give another dose Iron sucrose today. Follow again in AM. (9) DVT prophylaxis: Assessment and plan: SCDs given concern for possible GI bleed and anemia. Ambulate. (10) Alcohol use disorder: Assessment and plan: We discussed options. Try naltrexone. She may also benefit from better anxiety control but complicated regimen already. Consider topiramate? She is connected to recovery center Wants to f/u [facility], needs coordination. Intensive outpatient would be a good option. With no stable housing supportive living environment situation would be helpful. Declines rehab, states hasn't helped in past. Subjective Subjective Patient reports: tolerating a regular diet, voiding w/o difficulty and shortness of breath (improving); denies diarrhea, nausea, vomiting or fever Interval history since last seen: Events: + heme stool, not black or gross blood No longer scoring CIWA today She feels a little better. No longer shakey. No chest pain, palpitations, dizziness. Breathing is okay, still cough. Exam Narrative Exam Narrative: gen: Alert and oriented, NAD heent- mmm, no icterus cv-rrr no mrg lungs-bilat wheeze with I/E. No rales, normal effort, speaking in complete sentences abd-soft, NT/ND ext-no cce Neuro: no tremor, normal speech and coordination Objective Last Vital Signs Temp 37.2 C 07/26/24 15:19 Pulse 84 07/26/24 18:17 Resp 18 07/26/24 18:10 BP 134/90 07/26/24 15:19 Pulse Ox 96 07/26/24 18:10 Laboratory Results - last 24 hr 07/23/24 07/26/24 13:45 06:20 WBC 7.56 RBC 3.16 L Hgb 7.9 L Hct 26.1 L MCV 83 MCH 25.0 L MCHC 30.3 L RDW 17.6 H Plt Count 189 MPV 10.5 Sodium 137 Potassium 3.8 Chloride 102 Carbon Dioxide 27.3 Anion Gap 7.7 BUN 23 H Creatinine 1.2 H Est GFR (CKD-EPI 2020) 53.46 Glucose 115 H Calcium 8.5 Magnesium 1.7 L Stool H. pylori Ag Positive A PAWSS Have you Been Recently Intoxicated or Drunk Within the Last 30 days?: Yes Have you Ever Experienced Previous Episodes of Alcohol Withdrawal?: Yes Have you ever Experienced Withdrawal Seizures?: No Have you ever Experienced Delirium Tremens(DT)s?: Yes Have you ever undergone Alcohol Rehabilitation Treatment (i.e, inpt ot outpatient treatment programs)?: Yes Have you ever Experienced Blackouts?: Yes Have you ever Combined Alcohol with other Downers within the last 90 days?: No Have you ever Combined Alcohol with any other Substance of Abuse during the last 90 days?: No Positive Blood Alcohol level on Presentation? [PCS.BAL]: Yes Evidence of Increased Autonomic Activity (i.e. HR>120, tremor, sweating, agitation, nausea)?: Yes Result: 7 Time Spent with Patient Time Spent with Patient: 35-49 minutes Time was spent: preparing to see the patient(eg.review tests), obtaining and/or reviewing separately otained hiistory, ordering medications,tests, procedures, referring, communicating with other health rn homecare, indepentently interpreting results, counseling the patient and care coordination
[2024-07-26] MEDS: Topiramate 50 MG TAB 25 MG PO (19:54)
[2024-07-26] MEDS: traZODone 50 MG TAB 75 MG PO (19:54)
[2024-07-26] MEDS: QUEtiapine 50 MG TAB 150 MG PO (19:54)
[2024-07-26] MEDS: Normal Saline Flush 10 ML SYR IVP (19:55)
[2024-07-27 00:20] VITALS: PULSE 82; RESP 16; RESP 2; RESP 9; O2SAT 94
[2024-07-27] MEDS: Albuterol/Ipratropium 3 ML UPD VIAL UPD ×2 (00:20→05:53)
[2024-07-27 00:26] VITALS: PULSE 83
[2024-07-27] MEDS: guaiFENesin/D-METHORPHAN HB 5 ML CUP 10 ML PO (04:01)
[2024-07-27 05:53] VITALS: PULSE 79; RESP 16; RESP 2; RESP 9; O2SAT 95
[2024-07-27 05:54] LABS: HGB 8.2 g/dL (11.2-15.7)
[2024-07-27 05:59] VITALS: PULSE 80
[2024-07-27 07:44] VITALS: BP 141/73; PULSE 92; RESP 14; TEMP 36.2; O2SAT 96
[2024-07-27] MEDS: Pantoprazole 40 MG TABCR PO (08:00)
[2024-07-27] MEDS: Budesonide/Formoterol 160/4.5 6 GM 60 PUFF INH IH (08:32)
[2024-07-27] MEDS: Tiotropium Bromide-Respimat 10 PUFF INH 2 PUFF IH (08:32)
[2024-07-27] MEDS: Lisinopril 20 MG TAB PO (09:18)
[2024-07-27] MEDS: Naltrexone 50 MG TAB PO (09:18)
[2024-07-27] MEDS: Benzonatate 100 MG CAP PO (09:18)
[2024-07-27] MEDS: Citalopram 20 MG TAB 40 MG PO (09:18)
[2024-07-27] MEDS: Thiamine 100 MG TAB PO (09:18)
[2024-07-27] MEDS: Folic Acid 1 MG TAB PO (09:18)
[2024-07-27] MEDS: guaiFENesin 600 MG TABCR PO (09:18)
[2024-07-27] MEDS: predniSONE 20 MG TAB 40 MG PO (09:18)
[2024-07-27] MEDS: Multivitamin TAB 1 TAB PO (09:19)
[2024-07-27] MEDS: cefTRIAXone 2 GM/50 ML BAG IVPB (09:19)
--- NOTE | 2024-07-27 09:47 | DSE_ITS ---
Date of service: 07/27/24 Time of Service: 09:47 DS: Diagnosis Discharge Diagnosis (1) GI bleed: Status: Chronic (2) COPD with acute exacerbation: Status: Acute (3) Acute respiratory failure with hypoxia: Status: Acute (4) ASIA (acute kidney injury): Status: Acute (5) Alcohol withdrawal syndrome: Status: Acute (6) Depression with anxiety: Status: Acute (7) Pneumonia: Status: Acute (8) Anemia: Status: Chronic (9) DVT prophylaxis: (10) Alcohol use disorder: Discharge Plan Disposition Patient Disposition: Home Condition: Stable Discharge Details Reason For Visit: COPD exacerbation,acute hypoxic, resp failure Admit Date/Time: 07/22/24 21:54 Admit Provider: Gregorio Smart Attending Provider: Gregorio Smart Primary Care Provider: Paula Barboza Hospital Course Hospital Course: 53-year-old female with a past medical history of COPD, hypertension, depression, anxiety, alcohol use disorder who was brought in by law enforcement due to intoxication and eviction from her hotel. She was admitted and treated for alcohol withdrawal with phenobarbital protocol and was stable for her last 2 days while inpatient. Recovery resources were reviewed. She declined rehab placement but planned to follow up with groups and therapy. She was started on naltrexone and this was prescribed at discharge. She was also given topiramate at which my help with cravings and sleep. She should follow up with her PCP about continuing this medication and possibly decreasing or stopping others like trazodone, doxepin, or quetiapine. She was noted to have severe anemia with hgb 8.4 on admission. She and was transfused 2 units when hgb was down to 6 on July 24 after two days with IV hydration. Her hgb increased to 8.9 6/5, then stabilized to 6/7 8.2. She never had kalyani bloody or black stools. Her stools were hemeoccult positive. Her iron was low. She was transfused a total of 800mg Venofer over 3 days. She was seen by surgery who recommended outpatient endoscopy/colonoscopy. She was treated with pantoprazole which she should continue. On admission she was found to by hypoxic with COPD exacerbation and she was started on prednisone. Cefrtriaxone and azithomycin were added the next day after CXR was read as pneumonia. She was off oxygen by 6/5 after her transfusion. She had received 6 days of steroids and 5 days of antibiotics at the time of discharge, and was sent home with her tiotropium, new symbicort, and prn albuterol/ipratropium nebs. Smoking cessation was discussed. She is pre- contemplative to contemplative. PCP follow up: Repeat CBC in 2-3 days to follow pneumonia, follow up with PCP later in the week Coordinate surgical follow up for endoscopy Follow up on new medication and counseling for alcohol use disorder and mood Home Meds and New Rx's Prescriptions: New multivitamin [Multiple Vitamins] Tablet 1 tab PO DAILY Qty: 0 0RF ipratropium-albuterol 0.5 mg-3 mg(2.5 mg base)/3 mL Solution For Nebulization 3 ml UPD Q6H PRN (Reason: Wheezing) Qty: 24 2RF naltrexone 50 mg Tablet 50 mg PO DAILY Qty: 30 2RF topiramate 50 mg Tablet 50 mg PO HS Qty: 30 0RF budesonide-formoterol [Symbicort] 160-4.5 mcg/actuation Hfa Aerosol Inhaler 2 puff inhalation BID Qty: 1 2RF thiamine mononitrate (vit B1) [Vitamin B-1 (mononitrate)] 100 mg Tablet 100 mg PO QAM Qty: 30 0RF Continued lisinopril 20 mg tablet 20 mg PO DAILY Qty: 90 3RF citalopram 40 mg tablet 40 mg PO DAILY Qty: 90 3RF Spiriva Respimat 1.25 mcg/actuation mist 2 puff inhalation DAILY Qty: 4 12RF albuterol sulfate [Ventolin HFA] 90 mcg/actuation HFA aerosol inhaler See Rx Instructions .ROUTE .COMPLEX Qty: 18 12RF Dose Instruction: INHALE TWO PUFFS BY MOUTH EVERY 4 HOURS NEEDED Rx Instructions: INHALE TWO PUFFS BY MOUTH EVERY 4 HOURS NEEDED ferrous sulfate 325 mg (65 mg iron) tablet 325 mg PO DAILY Qty: 30 0RF folic acid 1 mg tablet 1 mg PO DAILY Qty: 30 0RF hydroxyzine HCl 25 mg tablet 25 mg PO TID PRN (Reason: anxiety) Qty: 180 1RF (DME) Hand Held Nebulizer See Rx Instructions .Route .MEDSUPPLY Qty: 1 0RF Rx Instructions: As directed clobetasol-emollient 15 GM cream 1 applic Topical DAILY PRNQty: 60 Rx Instructions: Apply to hands PRN (DME) POCKET CHAMBER Spacer See Rx Instructions .ROUTE .MEDSUPPLY Qty: 1 0RF Rx Instructions: As directed doxepin 25 mg capsule See Rx Instructions .ROUTE .COMPLEX Qty: 60 5RF Dose Instruction: TAKE ONE CAPSULE BY MOUTH TWICE A DAY Rx Instructions: TAKE ONE CAPSULE BY MOUTH TWICE A DAY quetiapine 100 mg tablet See Rx Instructions .ROUTE .COMPLEX Qty: 135 0RF Dose Instruction: TAKE 1 & 1/2 TABLETS BY MOUTH AT BEDTIME DAILY Rx Instructions: TAKE 1 & 1/2 TABLETS BY MOUTH AT BEDTIME DAILY trazodone 50 mg tablet See Rx Instructions .ROUTE .COMPLEX Qty: 135 1RF Dose Instruction: TAKE 1 & 1/2 TABLETS BY MOUTH DAILY AT BEDTIME NEEDED FOR SLEEP Rx Instructions: TAKE 1 & 1/2 TABLETS BY MOUTH DAILY AT BEDTIME NEEDED FOR SLEEP cyanocobalamin (vitamin B-12) [Vitamin B-12] 500 mcg Tablet 500 mcg PO DAILY Qty: 30 0RF docusate sodium [Colace] 100 mg Capsule 100 mg PO BID Qty: 60 0RF polyethylene glycol 3350 [Miralax] 17 gram/dose powder 17 g PO .Nightly Qty: 510 0RF bisacodyl 10 mg suppository 10 mg IA DAILY PRN (Reason: constipation lobger than 48 hours) Qty: 12 0RF (DME) nebulizers Misc See Rx Instructions .ROUTE .MEDSUPPLY Qty: 1 0RF Rx Instructions: As directed thiamine HCl (vitamin B1) 100 mg tablet 100 mg PO DAILY Patient Comments: TAKE ONE TABLET BY MOUTH EVERY DAY pantoprazole [Protonix] 40 mg tablet,delayed release (DR/EC) 40 mg PO DAILY Qty: 30 2RF Discontinued albuterol sulfate 2.5 mg /3 mL (0.083 %) solution for nebulization 2.5 mg inhalation Q4H PRN (Reason: shortness of breath or wheezing) Qty: 180 3RF Discharge Instructions Instructions: Gastrointestinal Bleeding (DC) Additional Instructions: You have two new medications that are to help you not drink. Naltrexone is specifically for this, which you take in the morning. You were also given topiramate, which may help with cravings and sleep. You should talk to your PCP about cutting back on other medicaitons like trazodone, doxepin, and/or hydroxyzine if you can. You were given another inhaler to take twice daily every day - Symbicort. This is along with daily Spiriva. You should try to stop or at least minimize smoking. You finished your course of antibiotics and steroids (prednisone). Referrals: Kane Arellano MD [ [facility]] - (iron deficiency anemia in setting of alcohol use disorder, heme+ stool. Hospital follow up) Activity:: Activity as Tolerated Equipment/Supplies:: No Equipment Needed Diet:: As Tolerated Discharge Orders Discharge Orders: Discharge Order (Routine); Ordered 07/27/24 Ordered By: Slava Garcia DS: Summary Time Spent with Patient providing and/or coordinating discharge services: Greater than 30 minutes Status at Discharge Functional status at discharge: independent ambulation Overall status at discharge: patient is back to baseline Mental Status: mental status grossly normal Speech and Movement: speech and movement normal Mood: congruent mood Affect: normal affect Quality:SDOH Health Related Social Needs: Health related social needs housing instability, house d, with risk of homelessness (Z59.811), food insecurity (Z59.41), material hardship(utilities) (Z59.12), problems related to housing/economic circumstances (Z59.89), feeling lonely/isolated (Z60.8) Exam Narrative Exam Narrative: gen: Alert and oriented, NAD cv-rrr no mrg lungs- CTAB. No rales, normal effort, speaking in complete sentences abd-soft, NT/ND ext-no cce Neuro: no tremor, normal speech and coordination Psych Mental Status: mental status grossly normal Speech and Movement: speech and movement normal Mood: congruent mood Affect: normal affect DS: Data Vitals/I&O Vitals and I&O: Vital Signs Temperature 36.2 C L 07/27/24 07:44 Temperature Source Temporal Artery Scan 07/27/24 07:44 Pulse 92 H 07/27/24 07:44 Pulse 103 H 07/25/24 12:00 Respiratory Rate 14 07/27/24 07:44 Respiratory Effort Normal 07/22/24 22:24 Respiratory Depth Normal 07/22/24 22:24 Respiratory Pattern Normal 07/22/24 22:24 Blood Pressure 141/73 H 07/27/24 07:44 Blood Pressure Mean 95 07/27/24 07:44 Pulse Oximetry 96 07/27/24 07:44 Oxygen Delivery Method Room Air 07/27/24 07:44 Oxygen Flow Rate 0 07/27/24 07:44 Pain Level 0 07/26/24 15:19 Comment RN notified 07/26/24 11:36 Comment pt repeately taking NC off, nurse reapplies and redirects pt 07/22/24 17:31 Intake & Output 07/26/24 07/26/24 07/27/24 11:59 23:59 11:59 Intake Total 220 / 1315 1095 / 1315 550 / 550 Balance 220 / 1315 1095 / 1315 550 / 550 Intake: IV 325 / 325 Oral 220 / 990 770 / 990 550 / 550 Other: Urine Color Yellow Urine Appearance Clear Clear Urine Odor Normal Comment SUSANNE, voided and flushed urine immeasurable and not visualized. Pt voids independently in toilet Data Completed and Pending Labs on day of discharge: Labs from last 24 hours 07/27/24 07/23/24 05:20 13:45 Hgb 8.2 L Hct 27.0 L Stool H. pylori Ag Positive A Preliminary micro results at discharge 07/25/24 05:20 Urine - Clean Catch Urine Culture - Preliminary Enterococcus species 07/23/24 10:15 Blood Blood Culture - Preliminary NO GROWTH 72 HOURS 07/23/24 10:10 Blood Blood Culture - Preliminary NO GROWTH 72 HOURS PFSH All Active Problems (Updated 07/27/24 @ 09:40 by Slava Garcia) GI bleed (Chronic) Anemia (Chronic) Pneumonia (Acute) UTI (urinary tract infection) (Acute) Depression with anxiety (Acute) ASIA (acute kidney injury) (Acute) Acute respiratory failure with hypoxia (Acute) COPD with acute exacerbation (Acute) Encounter for medical clearance for patient hold (Acute) Abdominal fluid collection (Acute) Alcohol intoxication (Acute) Dyslipidemia (Acute) Hyperglycemia (Acute) Hypertension (Chronic) Alcohol withdrawal syndrome (Acute) Acute hypoxemic respiratory failure (Acute) Acute on chronic blood loss anemia (Acute) COPD with hypoxia (Acute) Fracture of rib of left side (Acute) Abdominal pain, chronic, left upper quadrant (Acute) Acute exacerbation of chronic obstructive pulmonary disease (COPD) (Acute) Alcohol intoxication in active alcoholic (Acute) Alcohol intoxication (Acute) Alcoholic gastritis without bleeding (Acute) Chronic upper gastrointestinal bleeding (Acute) Cyst and pseudocyst of pancreas (Acute) Alcohol abuse (Chronic) Heavy menses (Acute) Encounter for screening colonoscopy (Acute) Anemia (Chronic) Anxiety (Chronic) DUB (dysfunctional uterine bleeding) (Acute) Impaired fasting blood sugar (Acute 08/01/05) Obesity, unspecified (Acute 05/31/11) Atypical squamous cells of undetermined significance (ASC-US) on cervical Pap smear (Acute 08/05/09) ASCUS 08/05/09; 05/31/2011 Spinal stenosis of lumbar region (Acute 01/11/10) LS spine surg; Dr Sebastian Walker Tobacco dependence (Acute 08/01/05) Medical History DVT prophylaxis Chronic pain (02/20/09) chronic tramadol rx, back pain, sciatica despite LS surg 2009. Depression (04/03/15) Sertaline in the past with good relief of sx but then developed intolerable adverse rxns (nausea, flushing) Started on venlafaxine 03/2015 PHQ9 score = 9, indicating mild depression 03/2015 Anemia Alcohol use disorder COPD (chronic obstructive pulmonary disease) HTN (hypertension), benign Spinal stenosis Lumbar region Surgical History Internal injury, spleen, closed with IR embolization Back surgery L5-S1 decompression 2009 Family History Mother , lung cancer at age 50. No problems noted. Father , MVA No problems noted. Other Lung cancer Social History Smoking/Tobacco Use Status: Current every day Tobacco Type: cigarettes Smoking risk assessment performed?: Yes Alcohol Intake: current Alcohol Intake frequency: 3 or more drinks per day Alcohol type: beer and hard liquor Drug use: Never Substance use type: does not use Housing: other Do you feel safe at home: Yes Do you feel safe in your relationship?: Yes Time Spent with Patient Time Spent with Patient: <45 minutes Time was spent: preparing to see the patient(eg.review tests), obtaining and/or reviewing separately otained hiistory, ordering medications,tests, procedures, referring, communicating with other health home care physical therapist, indepentently int erpreting results, counseling the patient and care coordination
[2024-07-27] MEDS: Azithromycin 250 MG TAB PO (09:50)
--- NOTE | 2024-07-27 11:18 | CMDISCH_ITS ---
Date of service: 07/27/24 Time of Service: 11:18 LACE Index Scoring Tool Questions: Length of Stay (in days): 4 - 6 Was the patient admitted via the E.D.?: Yes Comorbidities: Chronic Pulmonary Disease E.D. Visits: 10 Answers: Total Score: 13 Risk of Readmission: High Risk Care Management Discharge Plan Reason for Hospitalization: COPD exacerbation and ETOH withdrawal Discharge Plan: Adrianne is discharged today with no new services. She will f/u with her PCP and the surgeon, and continue per her plan of care. Adrianne has secured her own ride, and will draft roller picker a new nebulilzer on her way, which Verena has agreed to pay for. Patient/Family Education Needs: Review of discharge instructions, activity, limitations, and discuss Ask me 3. SDOH Health Related Social Needs: Health related social needs housing instability, house d, with risk of homelessness (Z59.811), food insecurity (Z59.41), material hardship(utilities) (Z59.12), problems related to housing/economic circumstances (Z59.89), feeling lonely/isolated (Z60.8)
== END 2024-07-27 11:20 | disposition home or self-care (01) | DRG 193 ==
LOC: ER 21:00 → ICU 21:56 → MS 07-25 18:05
PROVIDERS: Hospitalist; Admitting Provider Family Medicine; Emergency Provider Nurse Practitioner Family; PCP Nurse Practitioner; Responsible Provider Family Medicine; Visit Provider Family Medicine
DX: J18.9 Pneumonia, unspecified organism (principal); I26.94 Multiple subsegmental thrombotic pulmonary emboli without acute cor pulmonale; J96.01 Acute respiratory failure with hypoxia; K29.21 Alcoholic gastritis with bleeding; J44.1 Chronic obstructive pulmonary disease with (acute) exacerbation; N17.9 Acute kidney failure, unspecified; N39.0 Urinary tract infection, site not specified; J44.0 Chronic obstructive pulmonary disease with (acute) lower respiratory infection; K86.3 Pseudocyst of pancreas; F10.239 Alcohol dependence with withdrawal, unspecified; Z59.02 Unsheltered homelessness; Z59.12 Inadequate housing utilities; I10 Essential (primary) hypertension; F41.8 Other specified anxiety disorders; D50.0 Iron deficiency anemia secondary to blood loss (chronic); R19.5 Other fecal abnormalities; E78.5 Hyperlipidemia, unspecified; R73.9 Hyperglycemia, unspecified; K29.20 Alcoholic gastritis without bleeding; F17.210 Nicotine dependence, cigarettes, uncomplicated; E66.9 Obesity, unspecified; Z68.32 Body mass index [BMI] 32.0-32.9, adult; Y90.8 Blood alcohol level of 240 mg/100 ml or more; M48.07 Spinal stenosis, lumbosacral region; G89.29 Other chronic pain; I12.9 Hypertensive chronic kidney disease with stage 1 through stage 4 chronic kidney disease, or unspecified chronic kidney disease; N18.32 Chronic kidney disease, stage 3b; Y90.6 Blood alcohol level of 120-199 mg/100 ml; F32.A Depression, unspecified; J44.9 Chronic obstructive pulmonary disease, unspecified; I95.9 Hypotension, unspecified; Z59.41 Food insecurity; Z60.8 Other problems related to social environment; D64.9 Anemia, unspecified; M48.061 Spinal stenosis, lumbar region without neurogenic claudication; R73.01 Impaired fasting glucose; Z68.31 Body mass index [BMI] 31.0-31.9, adult
CPT/HCPCS: 00123; 36415; 36430; 71275; 80048; 80053; 80307; 82805; 83690; 84145; 85027; 86850; 86900; 86901; 86920; 87040; 87077; 87338; 87637; 93005; 94640; 96361; 96365; 96366; 96374; 99285; 99291; J1650; 70450; 71046; 72125; 74174; 80320; 81003; 81015; 81025; 82270; 82607; 82746; 83540; 83550; 83735; 83880; 84100; 84484; 85014; 85018; 85025; 85610; 85730; 87086; 87186; 93010; 93306; 93970; 94664; 94760; 99223; 99232; 99233; 99239; J0456; J0696; J1644; J1756; J2470; J2560; J3411; J3490; J7512; J7620; P9016

== ENCOUNTER 2024-07-28 19:19 | Inpatient (IN) | payer MEDICAID, SELFPAY ==
[2024-07-28] VITALS (41 sets, daily range): BP systolic 84–126; BP diastolic 36–74; PULSE 68–87; RESP 12–21; TEMP 37.1; O2SAT 85–98
--- NOTE | 2024-07-28 19:15 | RT.EKG_ITS ---
APPROVED REPORT Exam: Resting ECG Reason for Exam: abd pain Patient Location: E HR:79 bpm ECG Measurements Heart Rate 79 AXIS VT 135 P 23 QRSd 92 QRS 70 QT 379 T 56 QTc 435 Conclusion Sinus rhythm 79 no stemi
[2024-07-28 20:27] LABS: HGB 9.3 g/dL (11.2-15.7); MCH 25.7 pg (27.0-33.0); MCV 86 fL (80-95); MPV 9.9 fL (8.0-11.0); Platelet Count 359 10^3/uL (130-400); RBC 3.62 10^6/uL (3.93-5.22); RDW 21.1 % (11.7-14.6); WBC 6.39 10^3/uL (4.4-10.8)
[2024-07-28 20:40] LABS: INR 1.1 (0.9-1.1); Prothrombin Time 10.9 sec (9.1-11.1)
[2024-07-28] MEDS: Pantoprazole 40 MG VIAL 80 MG IVP (20:40)
--- NOTE | 2024-07-28 20:45 | DI.CT_ITS ---
Exam(s) CT THORAX ABD/PEL CTA EXAM: CT THORAX ABD/PEL CTA CLINICAL HISTORY: shortness of breath. TECHNIQUE: Imaging Protocol: Axial computed tomography images with coronal and sagittal reformatted images were created and reviewed CONTRAST MATERIAL: Intravenous: Omnipaque 350 Contrast volume:100 ml Oral: None COMPARISON: CT CT ABDOMEN PELVIS W from 07/05/2024 FINDINGS: CHEST: AORTA: Thoracic aorta appears unremarkable. No aneurysms. No dissection. No significant atherosclerotic i nvolvement. The abdominal aorta appears age-appropriate. No aneurysms. Mild calcified plaque. Aortic bifurcati on is patent and there is no significant aneurysmal dilatation or dissection in the iliac arteries no r within the common femoral arteries. PULMONARY ARTERIES: Please note that this study was ordered with aortic dissection protocol. However , there are intraluminal filling defects evident within the lower lobe pulmonary arteries bilaterally consistent with pulmonary emboli. These are in subsegmental lower lobe vessels bilaterally. LUNGS: There is no evidence of pulmonary infarction nor pleural effusions. There are mild subpleural increased markings in the posterior basal segment of the right lower lobe. No abnormal markings in the left lung. No nodules. No pneumothorax.. MEDIASTINUM: There is no hilar nor mediastinal adenopathy. No mediastinal hematoma. No sternal fract ures. CARDIAC: Heart size is normal. There is no pericardial effusion. There is no shift of the intervent ricular septum and there is no intravenous contrast reflux into the intrahepatic IVC. OSSEOUS: There fractures in the posterior aspect of the left 8th rib and partially healed fracture le ft 9th rib. Nonunion fracture left 10th rib and healed fracture deformity posterior left 11th rib. These findings were evident on prior CT scan of 07/05/2024. ABDOMEN There is no ascites. LIVER: There are no focal hepatic lesions nor dilatation of intrahepatic ducts. GALLBLADDER/BILIARY: No obvious gallbladder pathology. CBD is not dilated. PANCREAS: No evidence of pancreatic mass nor dilatation of the pancreatic duct. SPLEEN: Spleen is not enlarged. There are no intrasplenic lesions. Splenic and portal veins are eldridge nt. ADRENALS: There are no significant adrenal masses. KIDNEYS: No cysts evident. No calculi nor hydronephrosis. No solid renal masses. ABDOMINAL AORTA: The abdominal aorta is not enlarged. LYMPH NODES: , This instead of a common celiac trunk. No obvious mesenteric masses. ABDOMINAL WALL: No evidence of significant anterior abdominal wall hernia. GI: There is no evidence of bowel obstruction, free air, nor abscess.There are no ischemic appearing bowel loops. PELVIS: LYMPH NODES: There is no intrapelvic nor inguinal adenopathy. GI: No evidence of appendicitis.No evidence of sigmoid diverticulitis. URINARY BLADDER: No calculi nor masses evident REPRODUCTIVE: Abnormal appearing uterus which is lobular and contains multiple partially calcified ut erine fibroids. Difficult to accurately assess the endometrium here. Ovaries not identified. OSSEOUS: No pelvic fractures identified. No osseous lesions. IMPRESSION: 1. No evidence of aortic dissection, aneurysm, nor pericardial effusion. 2. There are intraluminal filling defects consistent with pulmonary emboli in bilateral lower lobe se gmental vessels of the pulmonary artery tree. There is no evidence of pulmonary infarct. No signifi cant infiltrates nor pleural effusions. 3. No significant acute findings in the abdomen and pelvis. Preliminary report from [facility] was reviewed Final report (bilateral pulmonary emboli) called by myself to ER physician 07/29/2024 at 8:40 a.m. RADIATION DOSE DELIVERED: 786.59mGy.cm Total DLP DATA REPOSITORY: All CT scans at this facility are submitted to the National Radiology Data Registry (NRDR) Dose Index Registry (DIR) with the [employer] (ACR). RADIATION OPTIMIZATION: All CT scans at this facility use at least one of these dose optimization te chniques: automated exposure control; mA and/or kV adjustment per patient size (includes targeted exa ms where dose is matched to clinical indication); or iterative reconstruction.
[2024-07-28 20:50] LABS: Absolute Basophil Count 0.13 10^3/uL (0.0-0.2); Absolute Eosinophil Count 0.13 10^3/uL (0.0-0.7); Absolute Lymphocyte Count 2.17 10^3/uL (1.2-3.4); Absolute Monocyte Count 0.51 10^3/uL (0.1-0.8)
[2024-07-28 20:51] LABS: ALT 26 U/L (14-59); AST 18 U/L (15-37); Acanthocytes 2+; Albumin 2.7 g/dL (3.4-5.0); Alkaline Phosphatase 65 U/L (46-116); Anion Gap 9.4 mmol/L (3-11); BUN 29 mg/dL (7-18); Bilirubin, Total 0.1 mg/dL (0.2-1.0); CO2 24.6 mmol/L (21.0-32.0); CREATININE 1.5 mg/dL (0.55-1.02); Calcium 7.8 mg/dL (8.5-10.1); Chloride 107 mmol/L (98-107); Diff Comment Manual Differential; ETHANOL BLOOD 194.4 mg/dL (<10); Glucose 78 mg/dL (74-106); Hypochromasia 1+; Lipase 48 U/L (<78); Metamyelocytes % 2; Myelocytes % 2; Potassium 4.6 mmol/L (3.5-5.1); Sodium 141 mmol/L (136-145); Total Protein 6.3 g/dL (6.4-8.2)
[2024-07-28 20:53] LABS: Troponin I 9 ng/L (<or=51)
[2024-07-28] MEDS: Normal Saline 500 ML IV (21:00)
[2024-07-28] MEDS: Omnipaque 350 MG/ML 100 ML BTL IJ (21:11)
[2024-07-28] MEDS: Normal Saline - Diluent 50 ML VIAL IJ (21:14)
--- NOTE | 2024-07-28 21:47 | DI.VRAD_ITS ---
PROCEDURE INFORMATION: Exam: CTA Chest With Contrast CTA Abdomen and Pelvis With Contrast Exam date and time: 07/28/2024 9:03 PM Age: 53 years old Clinical indication: Shortness of breath; SOB, eval for varices/upper gi bleed TECHNIQUE: Imaging protocol: Computed tomographic angiography of the chest with contrast. Exam focused on the arteries. Computed tomographic angiography of the abdomen and pelvis with contrast. Exam focused on the arteries. 3D rendering (Not supervised by radiologist): MIP and/or 3D reconstructed images were created by the technologist. COMPARISON: CT CHEST PE ABD PELVIS W 03/16/2021 12:23 PM FINDINGS: VASCULATURE: Pulmonary arteries: A nonocclusive filling defect is present within a subsegmental branch of the left lower lobe consistent with small nonocclusive pulmonary embolus. No other pulmonary arterial filling defects to suggest acute embolus. Aorta: There are scattered atheromatous calcifications throughout the aorta and iliac arteries. The aorta demonstrates normal course and caliber. No aneurysmal dilatation. Celiac trunk and mesenteric arteries: No occlusion or significant stenosis. No gastroesophageal varices. Renal arteries: No occlusion or significant stenosis. Right iliac arteries: No occlusion or significant stenosis. Left iliac arteries: No occlusion or significant stenosis. CHEST: Lungs: The lungs are clear. Pleural spaces: Unremarkable. No pneumothorax. No pleural effusion. Heart: Heart is normal size. No pericardial effusion. ABDOMEN AND PELVIS: Liver: No mass. Gallbladder and biliary ducts: Unremarkable. No calcified stones. No ductal dilation. Pancreas: The pancreas demonstrates normal size. No pancreatic ductal dilatation. Spleen: The spleen has a lobulated, scarred appearance which is unchanged from the CT dated 07/05/2024 series 14/image 92). Adrenal glands: The adrenal glands have a normal appearance. Kidneys and ureters: The kidneys are normal in size. No nephrolithiasis or hydronephrosis. No hydroureter or ureterolithiasis. Stomach and bowel: The bowel demonstrates overall normal caliber and wall thickness. No contrast extravasation within the bowel to suggest active GI hemorrhage. Appendix: The appendix is thin walled. Intraperitoneal space: No pneumoperitoneum. No free fluid. Urinary bladder: The bladder is thin walled and fluid filled. Reproductive: The uterus has a normal appearance. Multiple fibroids, some of which are partially calcified are present within the uterine fundus. Lymph nodes: No enlarged lymph nodes. Bones/joints: Multiple healed posterior left rib fractures are noted. Bones have a normal appearance. No acute fracture or suspicious bone lesion. Soft tissues: Unremarkable. IMPRESSION: 1. Nonocclusive subsegmental embolus within the left lower lobe as above. No other findings to suggest acute pulmonary emboli. 2. No acute intra-abdominal findings. Specifically, no arterial or portal venous phase extravasation within the bowel to suggest active GI hemorrhage. 3. Normal appendix. THIS REPORT CONTAINS FINDINGS THAT MAY BE CRITICAL TO PATIENT CARE. The findings were verbally communicated via telephone conference with Jacki Hua at 9:46 PM EST on 07/28/2024. The findings were acknowledged and understood. Dictated and Authenticated by: Miriam Alvarenga MD. Orderin Melita Echeverria MD
--- NOTE | 2024-07-28 22:08 | ED.GENADUL_ITS ---
Discharge Plan Disposition Patient Disposition: Admit to [facility] Condition: Serious Discharge Details Clinical Impression: Pulmonary embolus, Alcoholic gastritis without bleeding, Anemia Admit Date/Time: 07/28/24 23:54 Admit Provider: Carlos A Valadez Attending Provider: Carlos A Valadez Primary Care Provider: Paula Barboza ED Provider: Jacki Hua Discharge Data Discharge Date/Time-TO BE ENTERED AT DEPARTURE: 07/29/24 00:41 HPI General Date/Time Provider Initiated Documentation: 07/28/24 19:30 . HPI Narrative: This 53-year-old female with history of GI bleed anemia depression and anxiety homelessness alcoholism history of respiratory failure COPD exacerbation with admission and discharge this morning [place] [facility] [place] . Apparently the police were called as patient was sleeping in her car. She states she was discharged this morning and felt well. She denies any black tarry stools today. She states she does feel slightly short of breath she did drink 1/5 of vodka today but she states she was detoxed in the emergency department for 5 days. EMS reports hypotension denies any falls or injuries. Related Data Home Medications ?Medication ?Instructions ?Recorded ?Confirmed clobetasol-emollient 0.05 % 1 applic topical DAILY PRN #60 12/08/16 07/28/24 topical cream grams inhalational spacing device #1 ea 09/28/20 07/29/24 (POCKET CHAMBER spacer) nebulizers #1 ea 03/16/21 07/29/24 citalopram 40 mg tablet 40 mg PO DAILY #90 tabs 10/0 09/1207/28/24 lisinopril 20 mg tablet 20 mg PO DAILY #90 tab-caps 11/27/23 07/28/24 tiotropium bromide 1.25 2 puff inhalation DAILY #4 g franky 11/27/23 07/28/24 mcg/actuation mist for inhalation (Spiriva Respimat) doxepin 25 mg capsule See Rx Instructions .Route 1 03/24/23 07/28/24 .COMPLEX #60 caps cyanocobalamin (vitamin B-12) 500 500 mcg PO DAILY #30 tabs 03/13/24 07/28/24 mcg tablet (Vitamin B-12) docusate sodium 100 mg capsule 100 mg PO BID #60 caps 03/13/24 07/28/24 (Colace) bisacodyl 10 mg rectal suppository 10 mg SD DAILY PRN constipation 03/22/24 07/28/24 lobger than 48 hours #12 ea polyethylene glycol 3350 17 17 g PO .Nightly #510 gram s 03/22/24 07/28/24 gram/dose oral powder (Miralax) quetiapine 100 mg tablet See Rx Instructions .Route 0 06/03/24 07/28/24 .COMPLEX #135 tabs Hand Held Nebulizer #1 ea 06/21/24 07/29/24 albuterol sulfate 90 mcg/actuation See Rx Instructions .Route 06/21/24 07/28/24 aerosol inhaler (Ventolin HFA) .COMPLEX #18 grams ferrous sulfate 325 mg (65 mg 325 mg PO DAILY #30 tabs 06/21/24 07/28/24 iron) tablet folic acid 1 mg tablet 1 mg PO DAILY #30 tabs 06/2107/29/24 hydroxyzine HCl 25 mg tablet 25 mg PO TID PRN anxiety #180 tabs 06/21/24 07/28/24 trazodone 50 mg tablet See Rx Instructions .Route 0 07/01/24 07/28/24 .COMPLEX #135 tabs thiamine HCl (vitamin B1) 100 mg 100 mg PO DAILY 07/2407/28/24 tablet budesonide-formoterol HFA 160 2 puff inhalation BID #1 inh 07/27/24 07/28/24 mcg-4.5 mcg/actuation aerosol inhaler (Symbicort) ipratropium 0.5 mg-albuterol 3 mg 3 ml UPD Q6H PRN Whe ezing #24 pkgs 07/27/24 07/28/24 (2.5 mg base)/3 mL nebulization soln multivitamin (Multiple Vitamins 1 tab PO DAILY #0 tabs 07/27/24 07/28/24 tablet) naltrexone 50 mg tablet 50 mg PO DAILY #30 tabs 09/1307/28/24 pantoprazole 40 mg tablet,delayed 40 mg PO DAILY #30 t abs 07/27/24 07/28/24 release (Protonix) thiamine mononitrate (vit B1) 100 100 mg PO QAM #30 ta bs 07/27/24 07/28/24 mg tablet (Vitamin B-1 (mononitrate)) topiramate 50 mg tablet 50 mg PO HS #30 tabs 5 07/28/24 apixaban 5 mg (74 tabs) tablets in See Rx Instructions PO .COMPLEX 07/30/24 a dose pack (Eliquis DVT-PE Treat #74 dose pk 30D Start) Previous Rx's ?Medication ?Instructions ?Recorded inhalational spacing device #1 ea 09/28/20 (POCKET CHAMBER spacer) nebulizers #1 ea 03/16/21 citalopram 40 mg tablet 40 mg PO DAILY #90 tabs 09/12 lisinopril 20 mg tablet 20 mg PO DAILY #90 tab-caps 11/27/23 tiotropium bromide 1.25 2 puff inhalation DAILY #4 g franky 11/27/23 mcg/actuation mist for inhalation (Spiriva Respimat) doxepin 25 mg capsule See Rx Instructions .Route 1 03/24/23 .COMPLEX #60 caps cyanocobalamin (vitamin B-12) 500 500 mcg PO DAILY #30 tabs 03/13/24 mcg tablet (Vitamin B-12) docusate sodium 100 mg capsule 100 mg PO BID #60 caps 03/13/24 (Colace) bisacodyl 10 mg rectal suppository 10 mg SD DAILY PRN constipation 03/22/24 lobger than 48 hours #12 ea polyethylene glycol 3350 17 17 g PO .Nightly #510 gram s 03/22/24 gram/dose oral powder (Miralax) quetiapine 100 mg tablet See Rx Instructions .Route 0 06/03/24 .COMPLEX #135 tabs Hand Held Nebulizer #1 ea 06/21/24 albuterol sulfate 90 mcg/actuation See Rx Instructions .Route 06/21/24 aerosol inhaler (Ventolin HFA) .COMPLEX #18 grams ferrous sulfate 325 mg (65 mg 325 mg PO DAILY #30 tabs 06/21/24 iron) tablet folic acid 1 mg tablet 1 mg PO DAILY #30 tabs 06/21 hydroxyzine HCl 25 mg tablet 25 mg PO TID PRN anxiety #180 tabs 06/21/24 trazodone 50 mg tablet See Rx Instructions .Route 0 07/01/24 .COMPLEX #135 tabs budesonide-formoterol HFA 160 2 puff inhalation BID #1 inh 07/27/24 mcg-4.5 mcg/actuation aerosol inhaler (Symbicort) ipratropium 0.5 mg-albuterol 3 mg 3 ml UPD Q6H PRN Whe ezing #24 pkgs 07/27/24 (2.5 mg base)/3 mL nebulization soln multivitamin (Multiple Vitamins 1 tab PO DAILY #0 tabs 07/27/24 tablet) naltrexone 50 mg tablet 50 mg PO DAILY #30 tabs 09/13 pantoprazole 40 mg tablet,delayed 40 mg PO DAILY #30 t abs 07/27/24 release (Protonix) thiamine mononitrate (vit B1) 100 100 mg PO QAM #30 ta bs 07/27/24 mg tablet (Vitamin B-1 (mononitrate)) topiramate 50 mg tablet 50 mg PO HS #30 tabs 5 apixaban 5 mg (74 tabs) tablets in See Rx Instructions PO .COMPLEX 07/30/24 a dose pack ([employer] DVT-PE Treat #74 dose pk 30D Start) Allergies Allergy/AdvReac Type Severity Reaction Status Date / Time hydromorphone (From Dilaudid) Allergy Severe Itching Verified 07/28/24 19:29 oxycodone AdvReac Unknown TERRIBLE Verified 07/28/24 19:29 DREAMS General Stated Complaint: Abd Prob ALISTAIR: 3 Exam Narrative Exam Narrative: Patient appears chronically unwell she is fully alert and oriented she smells of alcohol her pupils are equal round reactive to light and accommodation her lungs are slightly diminished without wheezes, cardiac rate rhythm regular no abdominal tenderness alert and oriented x 41+ edema to bilateral lower extremities Course Vital Signs Vital signs: Vital Signs Temperature 37.1 C 07/28/24 19:22 Pulse 81 07/28/24 19:22 Respiratory Rate 16 07/28/24 19:22 Blood Pressure 96/36 L 07/28/24 19:22 Pulse Oximetry 93 07/28/24 19:22 Temperature 37.1 C 07/28/24 19:43 Temperature Source Oral 07/28/24 19:43 Pulse 81 07/28/24 21:40 Pulse 81 07/28/24 21:40 Respiratory Rate 13 07/28/24 21:40 Blood Pressure 121/73 07/28/24 21:01 Blood Pressure Mean 82 07/28/24 21:01 Blood Pressure Position Sitting 07/28/24 19:43 Pulse Oximetry 96 07/28/24 21:40 Oxygen Delivery Method Nasal Cannula 07/28/24 19:43 Oxygen Flow Rate 1 07/28/24 19:43 Lab/Test Results Lab/Test Results: Laboratory Tests Range/Units 07/28/24 20:20 WBC (4.4-10.8) 10^3/uL 6.39 RBC (3.93-5.22) 10^6/uL 3.62 L Hgb (11.2-15.7) g/dL 9.3 L Hct (36.0-46.0) % 31.0 L MCV (80-95) fL 86 MCH (27.0-33.0) pg 25.7 L MCHC (32.0-36.0) % 30.0 L RDW (11.7-14.6) % 21.1 H Plt Count (130-400) 10^3/uL 359 D MPV (8.0-11.0) fL 9.9 Immature Gran % See Differential Neutrophils % % 50.0 Lymphocytes % % 34.0 Monocytes % % 8.0 Eosinophils % % 2.0 Basophils % % 2.0 Metamyelocytes % 2 Myelocytes % 2 Nucleated RBC % (0.0-0.3) % 0.0 Absolute Neutrophils (1.2-6.7) 10^3/uL 3.20 Absolute Lymphocytes (1.2-3.4) 10^3/uL 2.17 Absolute Monocytes (0.1-0.8) 10^3/uL 0.51 Absolute Eosinophils (0.0-0.7) 10^3/uL 0.13 Absolute Basophils (0.0-0.2) 10^3/uL 0.13 RBC Morphology See Below Hypochromasia 1+ Acanthocytes (Spur) 2+ PT (9.1-11.1) sec 10.9 INR (0.9-1.1) 1.1 Sodium (136-145) mmol/L 141 Potassium (3.5-5.1) mmol/L 4.6 Chloride (98-107) mmol/L 107 Carbon Dioxide (21.0-32.0) mmol/L 24.6 Anion Gap (3-11) mmol/L 9.4 BUN (7-18) mg/dL 29 H Creatinine (0.55-1.02) mg/dL 1.5 H Est GFR (CKD-EPI 2020) (mL/min/1.73m2) 40.90 Glucose (74-106) mg/dL 78 Calcium (8.5-10.1) mg/dL 7.8 L Total Bilirubin (0.2-1.0) mg/dL 0.1 L AST (15-37) U/L 18 ALT (14-59) U/L 26 Alkaline Phosphatase (46-116) U/L 65 Troponin I (<or=51) ng/L 9 Total Protein (6.4-8.2) g/dL 6.3 L Albumin (3.4-5.0) g/dL 2.7 L Lipase (<78) U/L 48 Ethyl Alcohol (<10) mg/dL 194.4 H ABO/Rh A Positive Antibody Screen NEGATIVE Crossmatch See Detail Medical Decision Making Results CTA chest abdomen and pelvis which was ordered secondary to hypotension upon arrival with recent admission for GI bleed out of concern for rebleed. CTA shows subsegmental pulmonary embolism. This was discussed with the on-call radiologist Dr. La. Chemistry shows BUN of 29 creatinine 1.5 ethyl alcohol of 194 patient is fully alert and oriented. Patient presenting after being found in her car, sleeping with hypotension for EMS just discharged from hospital this morning with GI bleed and COPD exacerbation with respiratory failure in hospital for 6 days presenting with hypotension. Blood pressure 90/50 on arrival after hemoglobin was reviewed I canceled blood and ordered 1 L of NS blood pressure now is 120/60 patient has had 1/5 of alcohol today consistent with her blood alcohol of 195 she is fully alert and oriented with this she has no tenderness and her exam displays a chronically ill 53-year-old female secondary to a subsegmental PE I think patient requires heparinization but given the complexities of her history of GI bleed I think she would benefit from overnight observation with heparinization and gradual transition to Eliquis with surgical consultation regarding whether or not to scope patient tomorrow. Case discussed with Dr. Lemus, surgery does not recommend performing endoscopy/colonscopy on patient during hospitalization unless there is urgent need, case discussed with Dr. Palomino, will admit patient to his service Quality:SDOH Health Related Social Needs: Health related social needs risk of homeless food inse curity material hardship house/econ circumstance lonely/isolated Critical Care Time Critical Care Time Attestation: 35 min of cc time secondary to PE requiring anticoagulation and close obs, telemetry morning, diagnostic interpretation and review, speciality consultation, and admission FOR[facility] All Active Problems (Updated 08/01/24 @ 08:47 by PIPPA Pillai) CKD (chronic kidney disease) (Chronic) Pulmonary embolus (Acute) Anemia (Chronic) Depression with anxiety (Chronic) Encounter for medical clearance for patient hold (Acute) Abdominal fluid collection (Acute) Alcohol intoxication (Acute) Dyslipidemia (Acute) Hyperglycemia (Acute) Hypertension (Chronic) Acute hypoxemic respiratory failure (Acute) Acute on chronic blood loss anemia (Acute) COPD with hypoxia (Chronic) Fracture of rib of left side (Acute) Abdominal pain, chronic, left upper quadrant (Acute) Acute exacerbation of chronic obstructive pulmonary disease (COPD) (Acute) Alcohol intoxication in active alcoholic (Acute) Alcohol intoxication (Acute) Alcoholic gastritis without bleeding (Acute) Chronic upper gastrointestinal bleeding (Acute) Cyst and pseudocyst of pancreas (Acute) Alcohol abuse (Chronic) Heavy menses (Acute) Encounter for screening colonoscopy (Acute) Anemia (Chronic) Anxiety (Chronic) DUB (dysfunctional uterine bleeding) (Acute) Impaired fasting blood sugar (Acute 08/01/05) Obesity, unspecified (Acute 05/31/11) Atypical squamous cells of undetermined significance (ASC-US) on cervical Pap smear (Acute 08/05/09) ASCUS 08/05/09; 05/31/2011 Spinal stenosis of lumbar region (Acute 01/11/10) LS spine surg; Dr Sebastian Walker Tobacco dependence (Acute 08/01/05) Medical History DVT prophylaxis Chronic pain (02/20/09) chronic tramadol rx, back pain, sciatica despite LS surg 2009. Depression (04/03/15) Sertaline in the past with good relief of sx but then developed intolerable adverse rxns (nausea, flushing) Started on venlafaxine 03/2015 PHQ9 score = 9, indicating mild depression 03/2015 Anemia Alcohol use disorder COPD (chronic obstructive pulmonary disease) HTN (hypertension), benign Spinal stenosis Lumbar region Surgical History Internal injury, spleen, closed with IR embolization Back surgery L5-S1 decompression 2009 Family History Mother , lung cancer at age 50. No problems noted. Father , MVA No problems noted. Other Lung cancer Social History Smoking/Tobacco Use Status: Current every day Tobacco Type: cigarettes Smoking risk assessment performed?: Yes Alcohol Intake: current Alcohol Intake frequency: 3 or more drinks per day Alcohol type: beer and hard liquor Drug use: Never Substance use type: does not use Housing: homeless Do you feel safe at home: Yes Do you feel safe in your relationship?: Yes PAWSS Have you Been Recently Intoxicated or Drunk Within the Last 30 days?: Unable to Obtain Have you Ever Experienced Previous Episodes of Alcohol Withdrawal?: Unable to Obtain Have you ever Experienced Withdrawal Seizures?: Unable to Obtain Have you ever Experienced Delirium Tremens(DT)s?: Unable to Obtain Have you ever undergone Alcohol Rehabilitation Treatment (i.e, inpt ot outpatient treatment programs)?: Unable to Obtain Have you ever Experienced Blackouts?: Unable to Obtain Have you ever Combined Alcohol with other Downers within the last 90 days?: Unable to Obtain Have you ever Combined Alcohol with any other Substance of Abuse during the last 90 days?: Unable to Obtain Positive Blood Alcohol level on Presentation? [PCS.BAL]: Unable to Obtain Evidence of Increased Autonomic Activity (i.e. HR>120, tremor, sweating, agitation, nausea)?: Unable to Obtain
[2024-07-28 22:29] LABS: Troponin I 9 ng/L (<or=51)
[2024-07-28 22:47] LABS: NT-proBNP 1240 pg/mL (<300)
--- NOTE | 2024-07-28 22:55 | HPE_ITS ---
Date of service: 07/28/24 Time of Service: 22:55 Assessment and Plan Assessment and plan (1) Pulmonary embolus: Start date: 07/28/24 Status: Acute Assessment and plan: This is a 53-year-old lady who sleeps in her car and was discharged the day prior to presentation having been in the hospital for several days with an upper GI bleed which did not have further evaluation with endoscopy but did have surgical consultation, required transfusion and has not recurred with patient did not have any melena or hematemesis. She denies any peripheral edema but on presented to the ED via EMS after being reported being altered in her car, CTA was done to evaluate for active bleeding and was positive for a subsegmental PE in the left upper lobe with no indication to suggest acute pulmonary embolus. She has no history of previous thromboembolic events. With patient having no evidence of recurring GI bleed, she was initiated on IV heparin infusion for treatment of her PE will be observed for clearing of her alcohol intoxication and watch closely for alcohol withdrawal. Patient does verbalize risk of treatment and at least heparin can be stopped immediately with surgical intervention if he has recurrent bleed. Surgery may be consulted if she has any suggestion of bleeding at least with upper endoscopy prior to discharge. She will need long-term anticoagulation with no previous history of PE and her BNP is slightly elevated which may indicate right heart strain which also could be from her lung disease with COPD. She has had previous elevated BNP's. Echocardiogram will be updated and appearance of the lower extremities will be ordered. Long-term she may need Eliquis but this needs to be evaluated as a risk-benefit situation. If she has DVTs then she may require only after 3 months of treatment rather than lifelong anticoagulation which would be risky in this patient with her lifestyle. She is a full code. (2) Acute alcohol intoxication: Start date: 07/28/24 Status: Acute Assessment and plan: Patient had recurrent alcohol use now being sober for about a week prior to this admission with 1/5 of alcohol drops just prior to presentation. For closely for alcohol withdrawal but do not initiate protocol immediately. Continue outpatient medical therapy. (3) GI bleed: Status: Chronic Assessment and plan: Admitted likely has chronic GI bleeding with anemia but recent had an acute upper GI bleed with hematemesis. Surgery was consulted but did not do inpatient endoscopy. Surgery is not consulted presently but is aware of patient being in the hospital. If she has recurrent bleeding she may require inpatient evaluation. Upper endoscopy would be helpful prior to long-term anticoagulation. (4) COPD with hypoxia: Status: Chronic Assessment and plan: Continue outpatient medical therapy the patient having low oxygen levels especially with sleeping. She is not on home O2 being homeless and lives in her car. She may have sleep apnea with alcohol abuse and obesity. There is no evidence of chronic hypoxic respiratory therapy with T CO2 normal. (5) Hypertension: Status: Chronic Assessment and plan: Continue outpatient medical therapy. (6) Depression with anxiety: Status: Chronic Assessment and plan: Continue outpatient medical therapy. Patient has been on recent narcotics by review of her VPMS with no diagnosis warranting this treatment. She is at risk for drug misuse. Urine drug screen upon admission. (7) CKD (chronic kidney disease): Status: Chronic Assessment and plan: Slightly exacerbated and patient will be monitored while hospitalized. Patient did receive mild IV fluids in the ED but will not continue fluid resuscitation. She is eating and drinking. History of Present Illness History of Present Illness Chief Complaint: Homeless patient found in car asleep with EMS responding, hypotension Narrative: This is a 53-year-old female patient who recent was hospitalized for COPD exacerbation, GI bleed requiring transfusion and alcohol withdrawal having fully completed alcohol withdrawal protocol prior to being discharged yesterday. She is homeless and sleeps in the car and did drink 1/5 of alcohol the day of presentation. She was found in her car asleep and the police were called and then EMS was called responding and found in her hypotensive. She was brought to the ED for further evaluation. She was complaining of being slightly short of breath but had no cough. She had had no recent falls. She was complaining of some mild abdominal discomfort but was vague and CTA was performed because of her recent GI bleed requiring transfusion and being alcoholic with no endoscopy done at the time of her last admission. CTA did not reveal any acute bleeding or evidence of hepatic circulation pathology but did reveal segmental pulmonary emboli. This is a new finding. She was not hypoxic. Her BNP was elevated at 1240 without recent measurement except back in February 2021 and it was markedly elevated at 6014. She has had no recent echocardiogram. There may be some right heart strain and with her recent GI bleed and recurrent alcohol abuse, surgery was called for phone consultation as to whether the patient should have endoscopy and whether treatment of the PE with anticoagulation for increased risk of bleeding without full evaluation of her recent GI bleed. They stated that heparinizing the patient would be safer that this could be discontinued quickly and reverse and that she did not require acute endoscopy as surgery had said with her previous hospitalization. When I interviewed the patient she was still wreaking of alcohol and was sleeping but easily aroused. She voices no other acute complaints. She denied any increased leg swelling or previous thromboembolic events. She was admitted to the ICU for close monitoring for recurrent alcohol withdrawal with no alcohol withdrawal protocol initiated at this time having been alcohol free for a week before discharge and for close monitoring on heparin infusion for treatment of her PE. She will have follow- up echocardiogram and venous Dopplers of both lower extremities in the morning. If she has any evidence of bleeding, surgical consultation will be activated. She already had surgical consultation with recommendations of outpatient endoscopy follow-up. I may do that for her to have upper endoscopy prior to being initiated on apixaban. She is a full code. Review of Systems Narrative: 13 point review of systems otherwise unrevealing or stable. PFSH All Active Problems (Updated 07/29/24 @ 06:31 by Carlos A Valadez) CKD (chronic kidney disease) (Chronic) Acute alcohol intoxication (Acute) Pulmonary embolus (Acute) GI bleed (Chronic) Anemia (Chronic) Depression with anxiety (Chronic) Encounter for medical clearance for patient hold (Acute) Abdominal fluid collection (Acute) Alcohol intoxication (Acute) Dyslipidemia (Acute) Hyperglycemia (Acute) Hypertension (Chronic) Acute hypoxemic respiratory failure (Acute) Acute on chronic blood loss anemia (Acute) COPD with hypoxia (Chronic) Fracture of rib of left side (Acute) Abdominal pain, chronic, left upper quadrant (Acute) Acute exacerbation of chronic obstructive pulmonary disease (COPD) (Acute) Alcohol intoxication in active alcoholic (Acute) Alcohol intoxication (Acute) Alcoholic gastritis without bleeding (Acute) Chronic upper gastrointestinal bleeding (Acute) Cyst and pseudocyst of pancreas (Acute) Alcohol abuse (Chronic) Heavy menses (Acute) Encounter for screening colonoscopy (Acute) Anemia (Chronic) Anxiety (Chronic) DUB (dysfunctional uterine bleeding) (Acute) Impaired fasting blood sugar (Acute 08/01/05) Obesity, unspecified (Acute 05/31/11) Atypical squamous cells of undetermined significance (ASC-US) on cervical Pap smear (Acute 08/05/09) ASCUS 08/05/09; 05/31/2011 Spinal stenosis of lumbar region (Acute 01/11/10) LS spine surg; Dr Sebastian Walker Tobacco dependence (Acute 08/01/05) Medical History DVT prophylaxis Chronic pain (02/20/09) chronic tramadol rx, back pain, sciatica despite LS surg 2009. Depression (04/03/15) Sertaline in the past with good relief of sx but then developed intolerable adverse rxns (nausea, flushing) Started on venlafaxine 03/2015 PHQ9 score = 9, indicating mild depression 03/2015 Anemia Alcohol use disorder COPD (chronic obstructive pulmonary disease) HTN (hypertension), benign Spinal stenosis Lumbar region Surgical History Internal injury, spleen, closed with IR embolization Back surgery L5-S1 decompression 2009 Family History Mother , lung cancer at age 50. No problems noted. Father , MVA No problems noted. Other Lung cancer Social History Smoking/Tobacco Use Status: Current every day Tobacco Type: cigarettes Smoking risk assessment performed?: Yes Alcohol Intake: current Alcohol Intake frequency: 3 or more drinks per day Alcohol type: beer and hard liquor Drug use: Never Substance use type: does not use Housing: homeless Do you feel safe at home: Yes Do you feel safe in your relationship?: Yes Meds Allergies and Home Medications Allergies Allergy/AdvReac Type Severity Reaction Status Date / Time hydromorphone (From Dilaudid) Allergy Severe Itching Verified 07/28/24 19:29 oxycodone AdvReac Unknown TERRIBLE Verified 07/28/24 19:29 DREAMS Home Medications ?Medication ?Instructions ?Recorded ?Confirmed ?Type clobetasol-emollient 0.05 % 1 applic topical DAILY PRN #60 12/08/16 07/28/24 History topical cream grams inhalational spacing device #1 ea 09/28/20 07/22/24 Rx (POCKET CHAMBER spacer) nebulizers #1 ea 03/16/21 07/22/24 Rx citalopram 40 mg tablet 40 mg PO DAILY #90 tabs 11/27/23 07/28/24 Rx lisinopril 20 mg tablet 20 mg PO DAILY #90 tab-caps 11/27/23 07/28/24 Rx tiotropium bromide 1.25 2 puff inhalation DAILY #4 grams 11/27/23 07/28/24 Rx mcg/actuation mist for inhalation (Spiriva Respimat) doxepin 25 mg capsule See Rx Instructions .Route 01/22/24 07/28/24 Rx .COMPLEX #60 caps cyanocobalamin (vitamin B-12) 500 500 mcg PO DAILY #30 tabs 03/13/24 07/28/24 Rx mcg tablet (Vitamin B-12) docusate sodium 100 mg capsule 100 mg PO BID #60 caps 03/13/24 07/28/24 Rx (Colace) bisacodyl 10 mg rectal suppository 10 mg ND DAILY PRN constipation 03/22/24 07/28/24 Rx lobger than 48 hours #12 ea polyethylene glycol 3350 17 17 g PO .Nightly #510 grams 03/22/24 07/28/24 Rx gram/dose oral powder (Miralax) quetiapine 100 mg tablet See Rx Instructions .Route 06/03/24 07/28/24 Rx .COMPLEX #135 tabs Hand Held Nebulizer #1 ea 06/21/24 07/22/24 Rx albuterol sulfate 90 mcg/actuation See Rx Instructions .Route 06/21/24 07/28/24 Rx aerosol inhaler (Ventolin HFA) .COMPLEX #18 grams ferrous sulfate 325 mg (65 mg 325 mg PO DAILY #30 tabs 06/21/24 07/28/24 Rx iron) tablet folic acid 1 mg tablet 1 mg PO DAILY #30 tabs 06/21/24 07/22/24 Rx hydroxyzine HCl 25 mg tablet 25 mg PO TID PRN anxiety #180 tabs 06/21/24 07/28/24 Rx trazodone 50 mg tablet See Rx Instructions .Route 07/01/24 07/28/24 Rx .COMPLEX #135 tabs thiamine HCl (vitamin B1) 100 mg 100 mg PO DAILY 07/24/24 07/28/24 History tablet budesonide-formoterol HFA 160 2 puff inhalation BID #1 inh 07/27/24 07/28/24 Rx mcg-4.5 mcg/actuation aerosol inhaler (Symbicort) ipratropium 0.5 mg-albuterol 3 mg 3 ml UPD Q6H PRN Wheezing #24 pkgs 07/27/24 07/28/24 Rx (2.5 mg base)/3 mL nebulization soln multivitamin (Multiple Vitamins 1 tab PO DAILY #0 tabs 07/27/24 07/28/24 Rx tablet) naltrexone 50 mg tablet 50 mg PO DAILY #30 tabs 07/27/24 07/28/24 Rx pantoprazole 40 mg tablet,delayed 40 mg PO DAILY #30 tabs 07/27/24 07/28/24 Rx release (Protonix) thiamine mononitrate (vit B1) 100 100 mg PO QAM #30 tabs 07/27/24 07/28/24 Rx mg tablet (Vitamin B-1 (mononitrate)) topiramate 50 mg tablet 50 mg PO HS #30 tabs 07/27/24 07/28/24 Rx Exam Narrative Exam Narrative: General: Patient appears older than stated age and chronically ill, drowsy from recent alcohol use and in no acute distress. She is alert and oriented at least to person and place. HEENT: Normocephalic, eyes with pupils equal and reactive to light symmetrically, extraocular movement intact and sclera anicteric. Oropharynx with dry mucosa and poor dentition. Neck: Supple without JVD. Back: Stooped posture without CVA tenderness. Lungs: Bronchovesicular breath sounds diffusely but no focalizing rales or rhonchi and no expiratory wheeze. Fair aeration. Breast: Exam deferred. Heart: Regular rate and rhythm with distant heart sounds. No murmurs or gallops appreciated. Abdomen: Obese contour, soft with slight tenderness which is not focalizing other than most over the left abdomen and epigastrium but no guarding or rebound. Bowel sounds are positive in all quadrants. No palpable hepatosplenomegaly. Genitalia/rectal: Exam deferred. Extremities: No clubbing, cyanosis or grossly pitting edema. Negative Homans' sign bilaterally. Fair capillary refill. Skin: Normal color, warm and dry. Neuro: Cranial nerves II through XII grossly intact, no focalized motor deficits or tremor. Psych: Flattened affect with depressed mood. Patient is inebriated. No abnormal thought processes. Remote and recent memory grossly intact patient having minimal conversation. Results Imaging Imaging Studies: CTA Chest With Contrast CTA Abdomen and Pelvis With Contrast Exam date and time: 07/28/2024 9:03 PM Age: 53 years old Clinical indication: Shortness of breath; SOB, eval for varices/upper gi bleed TECHNIQUE: Imaging protocol: Computed tomographic angiography of the chest with contrast. Exam focused on the arteries. Computed tomographic angiography of the abdomen and pelvis with contrast. Exam focused on the arteries. 3D rendering (Not supervised by radiologist): MIP and/or 3D reconstructed images were created by the technologist. COMPARISON: CT CHEST PE ABD PELVIS W 03/16/2021 12:23 PM FINDINGS: VASCULATURE: Pulmonary arteries: A nonocclusive filling defect is present within a subsegmental branch of the left lower lobe consistent with small nonocclusive pulmonary embolus. No other pulmonary arterial filling defects to suggest acute embolus. Aorta: There are scattered atheromatous calcifications throughout the aorta and iliac arteries. The aorta demonstrates normal course and caliber. No aneurysmal dilatation. Celiac trunk and mesenteric arteries: No occlusion or significant stenosis. No gastroesophageal varices. Renal arteries: No occlusion or significant stenosis. Right iliac arteries: No occlusion or significant stenosis. Left iliac arteries: No occlusion or significant stenosis. CHEST: Lungs: The lungs are clear. Pleural spaces: Unremarkable. No pneumothorax. No pleural effusion. Heart: Heart is normal size. No pericardial effusion. ABDOMEN AND PELVIS: Liver: No mass. Gallbladder and biliary ducts: Unremarkable. No calcified stones. No ductal dilation. Pancreas: The pancreas demonstrates normal size. No pancreatic ductal dilatation. Spleen: The spleen has a lobulated, scarred appearance which is unchanged from the CT dated 07/05/2024 series 14/image 92). Adrenal glands: The adrenal glands have a normal appearance. Kidneys and ureters: The kidneys are normal in size. No nephrolithiasis or hydronephrosis. No hydroureter or ureterolithiasis. Stomach and bowel: The bowel demonstrates overall normal caliber and wall thickness. No contrast extravasation within the bowel to suggest active GI hemorrhage. Appendix: The appendix is thin walled. Intraperitoneal space: No pneumoperitoneum. No free fluid. Urinary bladder: The bladder is thin walled and fluid filled. Reproductive: The uterus has a normal appearance. Multiple fibroids, some of which are partially calcified are present within the uterine fundus. Lymph nodes: No enlarged lymph nodes. Bones/joints: Multiple healed posterior left rib fractures are noted. Bones have a normal appearance. No acute fracture or suspicious bone lesion. Soft tissues: Unremarkable. IMPRESSION: 1. Nonocclusive subsegmental embolus within the left lower lobe as above. No other findings to suggest acute pulmonary emboli. 2. No acute intra-abdominal findings. Specifically, no arterial or portal venous phase extravasation within the bowel to suggest active GI hemorrhage. 3. Normal appendix. Labs 07/29/24 01:30 07/28/24 20:20 Labs: Laboratory Results - last 24 hr 07/28/24 07/28/24 20:20 21:25 WBC 6.39 RBC 3.62 L Hgb 9.3 L Hct 31.0 L MCV 86 MCH 25.7 L MCHC 30.0 L RDW 21.1 H Plt Count 359 D MPV 9.9 Immature Gran % See Differential Neutrophils % 50.0 Lymphocytes % 34.0 Monocytes % 8.0 Eosinophils % 2.0 Basophils % 2.0 Metamyelocytes % 2 Myelocytes % 2 Nucleated RBC % 0.0 Absolute Neutrophils 3.20 Absolute Lymphocytes 2.17 Absolute Monocytes 0.51 Absolute Eosinophils 0.13 Absolute Basophils 0.13 RBC Morphology See Below Hypochromasia 1+ Acanthocytes (Spur) 2+ PT 10.9 INR 1.1 Sodium 141 Potassium 4.6 Chloride 107 Carbon Dioxide 24.6 Anion Gap 9.4 BUN 29 H Creatinine 1.5 H Est GFR (CKD-EPI 2020) 40.90 Glucose 78 Calcium 7.8 L Total Bilirubin 0.1 L AST 18 ALT 26 Alkaline Phosphatase 65 Troponin I 9 9 NT-Pro-B Natriuret Pep 1240 H Total Protein 6.3 L Albumin 2.7 L Lipase 48 Ethyl Alcohol 194.4 H ABO/Rh A Positive Antibody Screen NEGATIVE Crossmatch See Detail Last Vital Signs Temp 37.1 C 07/28/24 19:43 Pulse 75 07/28/24 22:31 Resp 14 07/28/24 22:31 BP 126/70 07/28/24 22:31 Pulse Ox 92 07/28/24 22:31 PAWSS Have you Been Recently Intoxicated or Drunk Within the Last 30 days?: Unable to Obtain Have you Ever Experienced Previous Episodes of Alcohol Withdrawal?: Unable to Obtain Have you ever Experienced Withdrawal Seizures?: Unable to Obtain Have you ever Experienced Delirium Tremens(DT)s?: Unable to Obtain Have you ever undergone Alcohol Rehabilitation Treatment (i.e, inpt ot outpatient treatment programs)?: Unable to Obtain Have you ever Experienced Blackouts?: Unable to Obtain Have you ever Combined Alcohol with other Downers within the last 90 days?: U nable to Obtain Have you ever Combined Alcohol with any other Substance of Abuse during the last 90 days?: Unable to Obtain Positive Blood Alcohol level on Presentation? [PCS.BAL]: Unable to Obtain Evidence of Increased Autonomic Activity (i.e. HR>120, tremor, sweating, agitation, nausea)?: Unable to Obtain Time Spent Time spent with Patient: >75 minutes Time was spent: preparing to see the patient(eg.review tests), obtaining and/or reviewing separately otained hiistory, ordering medications,tests, procedures, referring, communicating with other health palliative care nurse practitioner, indepentently interpreting results, counseling the patient and care coordination
[2024-07-28 23:39] LABS: Bilirubin Negative (Negative); Blood Trace-intact (Negative); Clarity Clear (Clear); Glucose Negative (Negative); Ketones Negative (Negative); Leukocyte Esterase Negative (Negative); Nitrite Negative (Negative); Specific Gravity 1.015 (1.005-1.025); Urobilinogen 0.2 mg/dL (Up to 0.2); pH 5.5 (5-8)
[2024-07-28 23:49] LABS: Bacteria Rare HPF (Negative); C & S Indicated? No; Casts 0-2 Hyaline LPF (Negative); Crystals Negative HPF (Negative); Epithelial Cells Rare HPF (Negative); Mucus Trace (Negative); RBC 0-2 HPF (0-2); WBC 0-2 HPF (0-5)
[2024-07-28 23:51] LABS: Troponin I 11 ng/L (<or=51)
[2024-07-29] VITALS (49 sets, daily range): BP systolic 96–161; BP diastolic 61–89; PULSE 70–98; RESP 13–28; TEMP 36.3–37.1; O2SAT 89–97
[2024-07-29 01:16] LABS: COVID-19 PCR Negative (Negative); Influenza A PCR Negative (Negative); Influenza B PCR Negative (Negative); RSV PCR Negative (Negative)
[2024-07-29] MEDS: Normal Saline 1,000 ML 125 ML IV ×3 (01:24→18:16)
[2024-07-29] MEDS: Normal Saline Flush 10 ML SYR IVP ×3 (01:29→19:54)
[2024-07-29 01:38] LABS: HCT 34.1 % (36.0-46.0); MCH 25.4 pg (27.0-33.0); MCHC 29.3 % (32.0-36.0); MCV 87 fL (80-95); MPV 9.9 fL (8.0-11.0); Platelet Count 366 10^3/uL (130-400); RBC 3.93 10^6/uL (3.93-5.22); RDW 21.2 % (11.7-14.6); RDW-SD 56.3 fL
[2024-07-29 01:43] LABS: Source Nasopharynx
[2024-07-29 01:52] LABS: PTT Activated 21.9 sec (20.6-30.2)
[2024-07-29] MEDS: Heparin in 0.45% NaCl 25,000 UNIT/250 ML BAG 11 UNIT IVINF (02:05)
--- NOTE | 2024-07-29 08:00 | DI.US_ITS ---
Exam(s) US EXTREMITY VENOUS BI EXAM: US EXTREMITY VENOUS BI CLINICAL HISTORY: Acute PE TECHNIQUE: Grayscale, color, and doppler imaging of the deep venous system of both lower extremities was performed. COMPARISON: US POCUS EXAM from 04/16/2024 FINDINGS: There is no evidence of intraluminal thrombus and there is normal compression and augmentation demons trated within the common femoral veins, femoral veins, and popliteal veins of both lower extremities. In the calves the interrogated veins also exhibit normal compression/ augmentation properties. The greater saphenous veins also appear patent as do the saphenofemoral junctions bilaterally.. IMPRESSION: 1. No ultrasound evidence of DVT in either lower extremity. DATA REPOSITORY:
[2024-07-29] MEDS: Pantoprazole 40 MG TABCR PO ×2 (08:02→19:54)
[2024-07-29] MEDS: Ferrous Sulfate 325 MG TAB PO (08:02)
[2024-07-29] MEDS: Docusate Sodium 100 MG CAP PO (08:02)
[2024-07-29] MEDS: Multivitamin TAB 1 TAB PO (08:03)
[2024-07-29] MEDS: Thiamine 100 MG TAB PO (08:03)
[2024-07-29] MEDS: Citalopram 20 MG TAB 40 MG PO (08:03)
[2024-07-29] MEDS: Cyanocobalamin 500 MCG TAB PO (08:03)
[2024-07-29] MEDS: Folic Acid 1 MG TAB PO (08:03)
[2024-07-29] MEDS: Budesonide/Formoterol 160/4.5 6 GM 60 PUFF INH IH ×2 (08:12→21:18)
[2024-07-29] MEDS: Tiotropium Bromide-Respimat 10 PUFF INH 2 PUFF IH (08:12)
[2024-07-29 08:25] LABS: *AMPHETAMINES SCREEN URINE Negative (Negative); *BARBITURATES SCREEN URINE Positive (Negative); *BENZODIAZEPINES SCREEN URINE Negative (Negative); Cannabinoids THC Negative (Negative); Cocaine Screen,Urine Negative (Negative); METHADONE URINE SCREEN Negative (Negative); OPIATES URINE SCREEN Negative (Negative)
[2024-07-29 08:28] LABS: Tricyclic Antidepressants Negative (Negative)
[2024-07-29 09:00] LABS: PTT Activated 36.1 sec (20.6-30.2)
[2024-07-29] MEDS: Doxepin 25 MG CAP PO ×2 (09:02→19:49)
[2024-07-29 09:08] LABS: ALT 21 U/L (14-59); AST 17 U/L (15-37); Albumin 2.7 g/dL (3.4-5.0); Alkaline Phosphatase 68 U/L (46-116); Anion Gap 11.8 mmol/L (3-11); BUN 29 mg/dL (7-18); Bilirubin, Total 0.3 mg/dL (0.2-1.0); CO2 22.2 mmol/L (21.0-32.0); CREATININE 1.2 mg/dL (0.55-1.02); Calcium 7.8 mg/dL (8.5-10.1); Chloride 102 mmol/L (98-107); Estimated GFR 53.46 (mL/min/1.73m2); Glucose 75 mg/dL (74-106); Potassium 4.2 mmol/L (3.5-5.1); Sodium 136 mmol/L (136-145); Total Protein 6.1 g/dL (6.4-8.2)
--- NOTE | 2024-07-29 09:28 | INITIAL_ITS ---
Date of service: 07/29/24 Time of Service: 09:28 Care Management Initial Assmt Initial Assessment Reason for Hospitalization: PE Functional Status/Living Situation Patient Presentation: Adrianne was discharged from [facility] on Monday. She had been evicted from her hotel room just prior to her last admission and was unhoused. Fortunately Adrianne has a car and was able to retrieve her car and her belongings from the [place]. She had loaned her car to friends but another friend has a truck that is not working and is parked at the [employer] so she went to stay there for the night. She was found in the truck intoxicated by the police and was brought to the police station then back to [facility]. She complained of some shortness of breath and was found to have pulmonary emboli but without infarcts. She was readmitted to the ICU as she had a GI bleed last admission requiring transfusion. VIKTORIA received a call from Twan Evans RN infection prevention coordinator through [facility]. She has been assigned to work with Adrianne and had a few questions. She will attempt to reach Adrianne when she is discharged to see if she can help with housing and other social needs. One of the barriers to her supporting Adrianne is the fact that Adrianne's phone has no minutes so she cannot easily be reached. Adrianne informed that her sister in [place] is willing to get her minutes so that she can again be in contact with people, so that issue may soon be resolved. Town of Residence: [facility] Resides with: Other (homeless) Significant Other/Family: Local Employment Status: Unemployed Instrumental Activities of Daily Living (ADLs): Independent Physical Functioning/Mobility Assistive Device: none Advance Directives Advance Directives: Do you have an Advance Directive: N 08/08/13 09:23 AD [address] [facility]: N 08/08/13 09:23 Date Asked 07/28/24 07/28/24 19:22 AD Date Reviewed COLST On File at [facility] COLST Date Scanned Code Status Resuscitation Status Full Code Portal Pt does not currently have a portal and education provided: Yes Insurance Coverage/Financial Issues Insurance: medicaid Care Team Visit Care Team Role Provider Type Slava Garcia MD [facility] STAFF PHYSICIAN Paula Barboza NP Primary Care Provider NURSE PRACTITIONER [facility] Provider PHYSICIANS ASSISTANT Carlos A Valadez Admit Provider NON-[facility] STAFF PHYSICIAN Attending Provider Discharge Potential Discharge Needs: PCP F/U Appt Anticipated Barriers to Discharge: None Identified Patient/Family Education Needs: Review discharge instructions, discuss Ask Me Three Transportation: Private vehicle Plan: Anticipate Adrianne will be discharged back intro the community when medically cleared. She will follow up with her PCP and plan of care and transport via [facility]. CM will follow and continue to support discharge planning. Social Determinants of Health Screening Will the Patient Participate in the Screening?: Declined to provide PFSH All Active Problems (Updated 07/29/24 @ 06:31 by Carlos A Valadez) CKD (chronic kidney disease) (Chronic) Acute alcohol intoxication (Acute) Pulmonary embolus (Acute) GI bleed (Chronic) Anemia (Chronic) Depression with anxiety (Chronic) Encounter for medical clearance for patient hold (Acute) Abdominal fluid collection (Acute) Alcohol intoxication (Acute) Dyslipidemia (Acute) Hyperglycemia (Acute) Hypertension (Chronic) Acute hypoxemic respiratory failure (Acute) Acute on chronic blood loss anemia (Acute) COPD with hypoxia (Chronic) Fracture of rib of left side (Acute) Abdominal pain, chronic, left upper quadrant (Acute) Acute exacerbation of chronic obstructive pulmonary disease (COPD) (Acute) Alcohol intoxication in active alcoholic (Acute) Alcohol intoxication (Acute) Alcoholic gastritis without bleeding (Acute) Chronic upper gastrointestinal bleeding (Acute) Cyst and pseudocyst of pancreas (Acute) Alcohol abuse (Chronic) Heavy menses (Acute) Encounter for screening colonoscopy (Acute) Anemia (Chronic) Anxiety (Chronic) DUB (dysfunctional uterine bleeding) (Acute) Impaired fasting blood sugar (Acute 08/01/05) Obesity, unspecified (Acute 05/31/11) Atypical squamous cells of undetermined significance (ASC-US) on cervical Pap smear (Acute 08/05/09) ASCUS 08/05/09; 05/31/2011 Spinal stenosis of lumbar region (Acute 01/11/10) LS spine surg; Dr Sebastian Walker Tobacco dependence (Acute 08/01/05) Medical History DVT prophylaxis Chronic pain (02/20/09) chronic tramadol rx, back pain, sciatica despite LS surg 2009. Depression (04/03/15) Sertaline in the past with good relief of sx but then developed intolerable adverse rxns (nausea, flushing) Started on venlafaxine 03/2015 PHQ9 score = 9, indicating mild depression 03/2015 Anemia Alcohol use disorder COPD (chronic obstructive pulmonary disease) HTN (hypertension), benign Spinal stenosis Lumbar region Surgical History Internal injury, spleen, closed with IR embolization Back surgery L5-S1 decompression 2009 Family History Mother , lung cancer at age 50. No problems noted. Father , MVA No problems noted. Other Lung cancer Social History Smoking/Tobacco Use Status: Current every day Tobacco Type: cigarettes Smoking risk assessment performed?: Yes Alcohol Intake: current Alcohol Intake frequency: 3 or more drinks per day Alcohol type: beer and hard liquor Drug use: Never Substance use type: does not use Housing: homeless Do you feel safe at home: Yes Do you feel safe in your relationship?: Yes Readmission Within the Past 30 Days Yes or No: Yes Date of First Admission Date of 1st Admission: 07/22/24 Date of this Admission Date of Admission: 07/28/24 This admission was: Through ED Office Visit Since 1st Admission Have you seen your PCP in the office since discharge?: No Had an appointment Been Scheduled?: Yes I. Interview patient and/or Family Difficulty reaching your doctor or getting an office appt?: No Have you had trouble purchasing/ or taking medication?: No Did you feel ready for discharge when you left the last time: Yes Did you call your physician beore you came to the ED?: No Assessment for Readmission Summary of readmission circumstances, based upon interviews: Adrianne was discharged on Monday. She is homeless and was found in her car, altered and intoxicated on Monday. She was also short of breath and was found to have a PE and was admitted.
--- NOTE | 2024-07-29 14:57 | PGE_ITS ---
Date of Service Date of service: 07/29/24 Time of Service: 14:57 Assessment and Plan Assessment and plan (1) Pulmonary embolus: Start date: 07/28/24 Status: Acute Assessment and plan: Bilateral segmental PEs in setting of recent 5 day admission with only mechanical DVT prophylaxis due to GI bleed, also sleeping in seat of car. No DVTs on LE studies No cardiac strain on CT, now on room air, which is reassuring, echo read pending Continue heparin drip for now, watch for bleeding. If stable transition to DOAC (2) Acute alcohol intoxication: Start date: 07/28/24 Status: Acute Assessment and plan: Patient had recurrent alcohol relapse x 1 day, I don't see signs of alcohol withdrawal currently, continue to monitor. Continue outpatient medical therapy. (3) GI bleed: Status: Chronic Assessment and plan: Likely has chronic GI bleeding with significant anemia. She does have reported history of hematemasis, but no kalyani bleeding recently. Occult blood positive last admission, s/p 2 units PRBC. H/H above recent levels, which is reassuring. I agree that at least an upper endoscopy would be helpful prior to long-term anticoagulation, will officially consult surgery Continue PPI. (4) COPD with hypoxia: Status: Chronic Assessment and plan: Hypoxia resolved, but she may have some CRISTÓBAL causing hypoxia overnight Exam not c/w active exacerbation Continue controller medications. (5) Hypertension: Status: Chronic Assessment and plan: Continue outpatient medical therapy. (6) Depression with anxiety: Status: Chronic Assessment and plan: Continue outpatient medical therapy. Patient has been on recent narcotics by review of her VPMS with no diagnosis warranting this treatment. She is at risk for drug misuse. but urine drug screen upon admission just barbituates given during last hospitalization.. (7) CKD (chronic kidney disease): Status: Chronic Assessment and plan: Slightly exacerbated (though similar to recent GFRs, eating and drinking, follow. Subjective Subjective Patient reports: no new complaints, tolerating liquids well and voiding w/o difficulty; denies vomiting, shortness of breath or fever Interval history since last seen: Events: On heparin drip Radiology re-read the CTA, bilateral PEs She feels okay this morning. She doesn't feel like she is going into withdrawal, only drank the one day she was out. No pain when I saw her this morning, but some epigastric discomfort later. Eating some, not a lot. Per RN had jelly-like stool. No kalyani black or bloody stools Exam Narrative Exam Narrative: gen: Alert and oriented, NAD heent- mmm, no icterus cv-rrr no mrg lungs- CTAB abd-soft, NT/ND ext-no cce Neuro: no tremor, normal speech and coordination Objective Last Vital Signs Temp 37.1 C 07/29/24 06:00 Pulse 90 07/29/24 12:30 Resp 22 07/29/24 12:30 BP 156/89 H 07/29/24 10:03 Pulse Ox 94 07/29/24 12:30 Laboratory Results - last 24 hr 07/28/24 07/28/24 07/28/24 20:20 21:25 23:25 WBC 6.39 RBC 3.62 L Hgb 9.3 L Hct 31.0 L MCV 86 MCH 25.7 L MCHC 30.0 L RDW 21.1 H Plt Count 359 D MPV 9.9 Immature Gran % See Differential Neutrophils % 50.0 Lymphocytes % 34.0 Monocytes % 8.0 Eosinophils % 2.0 Basophils % 2.0 Metamyelocytes % 2 Myelocytes % 2 Nucleated RBC % 0.0 Absolute Neutrophils 3.20 Absolute Lymphocytes 2.17 Absolute Monocytes 0.51 Absolute Eosinophils 0.13 Absolute Basophils 0.13 RBC Morphology See Below Hypochromasia 1+ Acanthocytes (Spur) 2+ PT 10.9 INR 1.1 APTT Sodium 141 Potassium 4.6 Chloride 107 Carbon Dioxide 24.6 Anion Gap 9.4 BUN 29 H Creatinine 1.5 H Est GFR (CKD-EPI 2020) 40.90 Glucose 78 Calcium 7.8 L Total Bilirubin 0.1 L AST 18 ALT 26 Alkaline Phosphatase 65 Troponin I 9 9 11 NT-Pro-B Natriuret Pep 1240 H Total Protein 6.3 L Albumin 2.7 L Lipase 48 Urine Color Yellow Urine Clarity Clear Urine pH 5.5 Ur Specific [place] 1.015 Urine Protein Negative Urine Ketones Negative Urine Blood Trace-intact H Urine Nitrite Negative Urine Bilirubin Negative Urine Urobilinogen 0.2 Ur Leukocyte Esterase Negative Urine RBC 0-2 Urine WBC 0-2 Ur Epithelial Cells Rare Urine Crystals Negative Urine Bacteria Rare Urine Casts 0-2 Hyaline Urine Mucus Trace Ur Culture Indicated? No Urine Glucose Negative Urine Opiates Screen Urine Methadone Screen Ur Barbiturates Screen Ur Tricyclics Screen Ur Amphetamines Screen U Benzodiazepines Scrn Urine Cocaine Screen Ur THC Screen Ethyl Alcohol 194.4 H COVID-19 Source SARS-CoV-2 (PCR) Influenza Type A (PCR) Influenza Type B (PCR) RSV (PCR) ABO/Rh A Positive Antibody Screen NEGATIVE Crossmatch See Detail 07/29/24 07/29/24 07/29/24 00:30 01:08 01:24 WBC RBC Hgb Hct MCV MCH MCHC RDW Plt Count MPV Immature Gran % Neutrophils % Lymphocytes % Monocytes % Eosinophils % Basophils % Metamyelocytes % Myelocytes % Nucleated RBC % Absolute Neutrophils Absolute Lymphocytes Absolute Monocytes Absolute Eosinophils Absolute Basophils RBC Morphology Hypochromasia Acanthocytes (Spur) PT INR APTT Sodium Potassium Chloride Carbon Dioxide Anion Gap BUN Creatinine Est GFR (CKD-EPI 2020) Glucose Calcium Total Bilirubin AST ALT Alkaline Phosphatase Troponin I Cancelled Cancelled NT-Pro-B Natriuret Pep Total Protein Albumin Lipase Urine Color Urine Clarity Urine pH Ur Specific [place] Urine Protein Urine Ketones Urine Blood Urine Nitrite Urine Bilirubin Urine Urobilinogen Ur Leukocyte Esterase Urine RBC Urine WBC Ur Epithelial Cells Urine Crystals Urine Bacteria Urine Casts Urine Mucus Ur Culture Indicated? Urine Glucose Urine Opiates Screen Urine Methadone Screen Ur Barbiturates Screen Ur Tricyclics Screen Ur Amphetamines Screen U Benzodiazepines Scrn Urine Cocaine Screen Ur THC Screen Ethyl Alcohol COVID-19 Source Nasopharynx SARS-CoV-2 (PCR) Negative Influenza Type A (PCR) Negative Influenza Type B (PCR) Negative RSV (PCR) Negative ABO/Rh Antibody Screen Crossmatch 07/29/24 07/29/24 07/29/24 01:30 07:57 08:30 WBC 7.50 RBC 3.93 Hgb 10.0 L Hct 34.1 L MCV 87 MCH 25.4 L MCHC 29.3 L RDW 21.2 H Plt Count 366 MPV 9.9 Immature Gran % Neutrophils % Lymphocytes % Monocytes % Eosinophils % Basophils % Metamyelocytes % Myelocytes % Nucleated RBC % Absolute Neutrophils Absolute Lymphocytes Absolute Monocytes Absolute Eosinophils Absolute Basophils RBC Morphology Hypochromasia Acanthocytes (Spur) PT INR APTT 21.9 36.1 H Sodium 136 Potassium 4.2 Chloride 102 Carbon Dioxide 22.2 Anion Gap 11.8 H BUN 29 H Creatinine 1.2 H Est GFR (CKD-EPI 2020) 53.46 Glucose 75 Calcium 7.8 L Total Bilirubin 0.3 AST 17 ALT 21 Alkaline Phosphatase 68 Troponin I NT-Pro-B Natriuret Pep Total Protein 6.1 L Albumin 2.7 L Lipase Urine Color Urine Clarity Urine pH Ur Specific [place] Urine Protein Urine Ketones Urine Blood Urine Nitrite Urine Bilirubin Urine Urobilinogen Ur Leukocyte Esterase Urine RBC Urine WBC Ur Epithelial Cells Urine Crystals Urine Bacteria Urine Casts Urine Mucus Ur Culture Indicated? Urine Glucose Urine Opiates Screen Negative Urine Methadone Screen Negative Ur Barbiturates Screen Positive A Ur Tricyclics Screen Negative Ur Amphetamines Screen Negative U Benzodiazepines Scrn Negative Urine Cocaine Screen Negative Ur THC Screen Negative Ethyl Alcohol COVID-19 Source SARS-CoV-2 (PCR) Influenza Type A (PCR) Influenza Type B (PCR) RSV (PCR) ABO/Rh Antibody Screen Crossmatch PAWSS Have you Been Recently Intoxicated or Drunk Within the Last 30 days?: Unable to Obtain Have you Ever Experienced Previous Episodes of Alcohol Withdrawal?: Unable to Obtain Have you ever Experienced Withdrawal Seizures?: Unable to Obtain Have you ever Experienced Delirium Tremens(DT)s?: Unable to Obtain Have you ever undergone Alcohol Rehabilitation Treatment (i.e, inpt ot outpatient treatment programs)?: Unable to Obtain Have you ever Experienced Blackouts?: Unable to Obtain Have you ever Combined Alcohol with other Downers within the last 90 days?: Unable to Obtain Have you ever Combined Alcohol with any other Substance of Abuse during the last 90 days?: Unable to Obtain Positive Blood Alcohol level on Presentation? [PCS.BAL]: Unable to Obtain Evidence of Increased Autonomic Activity (i.e. HR>120, tremor, sweating, agitation, nausea)?: Unable to Obtain Time Spent with Patient Time Spent with Patient: >50 minutes Time was spent: preparing to see the patient(eg.review tests), obtaining and/or reviewing separately otained hiistory, ordering medications,tests, procedures, referring, communicating with other health career discovery teacher, indepentently interpreting results, counseling the patient and care coordination
--- NOTE | 2024-07-29 15:32 | PHA.REVIEW2 ---
Pharmacy Admission Review Admission Clinical Review Admission Pharmacy Review: Acute alcohol intoxication (Acute) Pulmonary embolus (Acute) hydromorphone (From Dilaudid) Allergy (Severe, Verified 07/28/24 19:29) Itching oxycodone Adverse Reaction (Unknown, Verified 07/28/24 19:29) TERRIBLE DREAMS Resuscitation Status Full Code Height 5 ft 3 in Weight 82.2 kg Comments Comments/Follow Ups: Watch BP, SCr, labs and for med changes (possible renal dose adjustments, home med orders). Pharmacy Admission Review Renal Dosing Renal Dosing: BUN 29 mg/dL (7-18) H 07/29/24 08:30 Creatinine 1.2 mg/dL (0.55-1.02) H 07/29/24 08:30 Medications needing adjustments: Reviewed (Crcl is 53.7ml/min. Current medications ok. No adjustments needed as at now.) Anticoagulation Anticoagulation: Hgb 10.0 g/dL (11.2-15.7) L 07/29/24 01:30 Hct 34.1 % (36.0-46.0) L 07/29/24 01:30 Plt Count 366 10^3/uL (130-400) 07/29/24 01:30 INR 1.1 (0.9-1.1) 07/28/24 20:20 Creatinine 1.2 mg/dL (0.55-1.02) H 07/29/24 08:30 DVT Prophylaxis: N/A Therapeutic Anticoagulation: Reviewed (Therapeutic Heparin due to PE) Medications: Heparin Opiate Usage Evaluate Pain Scale/Pains Meds: Reviewed Relevant Labs Relevant Labs: Sodium 136 mmol/L (136-145) 07/29/24 08:30 Potassium 4.2 mmol/L (3.5-5.1) 07/29/24 08:30 Chloride 102 mmol/L (98-107) 07/29/24 08:30 Electrolytes, C-Reactive P, ESR: Reviewed DM Control DM Control: Glucose 75 mg/dL (74-106) 07/29/24 08:30 DM Control: Reviewed (No DM noted in medical history. ) Cardiac Review Cardiac Review: Blood Pressure 156/80 Blood Pressure 143/78 Blood Pressure 96/82 Blood Pressure 133/69 Blood Pressure 156/89 Blood Pressure 161/79 Blood Pressure 149/83 Blood Pressure 154/78 Blood Pressure 152/86 Blood Pressure 150/78 Blood Pressure 126/87 Blood Pressure 138/80 Blood Pressure 137/74 Troponin I Cancelled 07/29/24 01:24 NT-Pro-B Natriuret Pep 1240 pg/mL (<300) H 07/28/24 21:25 BP, HR, EF%: Reviewed (HR mostly within normal levels) QTc Review QTc: Reviewed (QTc 435 from EKG measured on admission, 07/28/24) IV to PO Switch IV Medications: Reviewed Home Meds Home Med List reviewed: Reviewed Relevent Home Meds Not ordered & why?: clobetasol-emollient (PRN), lisinopril, hydoxyzine (PRN) and naltrexone Current Meds Current Medication Order Review: Reviewed Comments Comments/Follow Ups: Watch BP, SCr, labs and for med changes (possible renal dose adjustments, home med orders).
[2024-07-29 16:34] LABS: PTT Activated 41.8 sec (20.6-30.2)
[2024-07-29] MEDS: Heparin in 0.45% NaCl 25,000 UNIT/250 ML BAG 13 UNIT IVINF (16:55)
--- NOTE | 2024-07-29 17:13 | W.PC.ACHO ---
Registration Status: Primary Language: Preferred Language: ED Information & Data Chief Complaint Abd Prob 07/28/24 22:15 Triage Note [facility] Abd 07/28/24 19:22 pain and feeling unwell. recently discharged for GI bleed and pneumonia. pt statse tarry stool today. EMS states drinking a fifth of vodka today. Medical / Surgical History (Last Reviewed 07/28/24 @ 22:55 by Carlos A Valadez) DVT prophylaxis Chronic pain (02/20/09) Depression (04/03/15) Anemia Alcohol use disorder COPD (chronic obstructive pulmonary disease) HTN (hypertension), benign Spinal stenosis (Last Reviewed 07/28/24 @ 22:55 by Carlos A Valadez) Internal injury, spleen, closed Back surgery Most Recent Vital Signs Temperature 98.8 F 07/29/24 06:00 Temperature Source Temporal Artery Scan 07/29/24 00:52 Pulse 88 07/29/24 15:01 Pulse 93 H 07/29/24 15:01 Respiratory Rate 21 07/29/24 15:01 Respiratory Effort Short of Breath 07/29/24 00:52 Respiratory Depth Normal 07/29/24 00:52 Respiratory Pattern Normal 07/29/24 00:52 Blood Pressure 156/80 H 07/29/24 15:01 Blood Pressure Mean 102 07/29/24 15:01 Blood Pressure Position Supine 07/29/24 00:52 Pulse Oximetry 93 07/29/24 14:01 Oxygen Delivery Method Room Air 07/29/24 00:52 Oxygen Flow Rate 0 07/29/24 00:52 Allergies hydromorphone (From Dilaudid) Allergy (Severe, Verified 07/28/24 19:29) Itching Face swelling oxycodone Adverse Reaction (Unknown, Verified 07/28/24 19:29) TERRIBLE DREAMS FROM PERCOCET Precautions Isolation Standard precaution 07/28/24 19:28 Active Medications Generic Name Dose Route Start Last Admin Trade Name Freq PRN Reason Stop Dose Admin Budesonide/Formoterol Fumarate 2 puff 07/29/24 08:30 07/29/24 08:12 Budesonide/Formoterol 160/4.5 6 Gm 60 Puff Inh IH 2 puff BID SHASHANK Administration Citalopram Hydrobromide 40 mg 07/29/24 08:30 07/29/24 08:03 Citalopram 20 Mg Tab PO 40 mg DAILY SHASHANK Administration Cyanocobalamin 500 mcg 07/29/24 08:30 07/29/24 08:03 Cyanocobalamin 500 Mcg Tab PO 500 mcg DAILY SHASHANK Administration Docusate Sodium 100 mg 07/29/24 08:30 07/29/24 08:02 Docusate Sodium 100 Mg Cap PO 100 mg BID SHASHANK Administration Doxepin HCl 25 mg 07/29/24 08:30 07/29/24 09:02 Doxepin 25 Mg Cap PO 25 mg BID SHASHANK Administration Ferrous Sulfate 325 mg 07/29/24 08:30 07/29/24 08:02 Ferrous Sulfate 325 Mg Tab PO 325 mg DAILY SHASHANK Administration Folic Acid 1 mg 07/29/24 08:30 07/29/24 08:03 Folic Acid 1 Mg Tab PO 1 mg DAILY SHASHANK Administration Sodium Chloride 1,000 mls @ 125 mls/hr 07/29/24 01:06 07/29/24 09:39 Saline 1000ml Bag IV 125 mls/hr INFUSION SHASHANK Administration Heparin Sodium/Sodium Chloride 25,000 unit in 250 mls @ 11 mls/hr 07/29/24 02:00 07/29/24 16:55 IVINF 1,300 units/hr INFUSION SHASHANK 13 mls/hr Administration Protocol 1,100 UNITS/HR Multivitamins 1 tab 07/29/24 08:30 07/29/24 08:03 Multivitamin Tab PO 1 tab DAILY SHASHANK Administration Sodium Chloride 0 ml 07/29/24 01:06 07/29/24 01:29 Normal Saline Flush 10 Ml Syr IVP 40 ml PRN PRN Administration Sodium Chloride 0 ml 07/29/24 08:30 07/29/24 08:04 Normal Saline Flush 10 Ml Syr IVP 20 ml BID SHASHANK Administration Thiamine HCl 100 mg 07/29/24 08:30 07/29/24 08:03 Thiamine 100 Mg Tab PO 100 mg QAM SHASHANK Administration Tiotropium [place] 2 puff 07/29/24 08:30 07/29/24 08:12 Tiotropium [place]-Respimat 10 Puff Inh IH 2 puffs DAILY SHASHANK Administration IV IV Catheter Type [Right Hand] Peripheral IV IV Catheter Type [Right Peripheral IV Antecubital] IV Catheter Gauge [Right Hand] 20 IV Catheter Gauge [Right 20 Antecubital] Diagnostics 07/29/24 07/29/24 07/29/24 Range/Units 15:47 08:30 07:57 WBC (4.4-10.8) 10^3/uL RBC (3.93-5.22) 10^6/uL Hgb (11.2-15.7) g/dL Hct (36.0-46.0) % MCV (80-95) fL MCH (27.0-33.0) pg MCHC (32.0-36.0) % RDW (11.7-14.6) % Plt Count (130-400) 10^3/uL MPV (8.0-11.0) fL Immature Gran % Neutrophils % % Lymphocytes % % Monocytes % % Eosinophils % % Basophils % % Metamyelocytes % Myelocytes % Nucleated RBC % (0.0-0.3) % Absolute Neutrophils (1.2-6.7) 10^3/uL Absolute Lymphocytes (1.2-3.4) 10^3/uL Absolute Monocytes (0.1-0.8) 10^3/uL Absolute Eosinophils (0.0-0.7) 10^3/uL Absolute Basophils (0.0-0.2) 10^3/uL RBC Morphology Hypochromasia Acanthocytes (Spur) PT (9.1-11.1) sec INR (0.9-1.1) APTT 41.8 H 36.1 H (20.6-30.2) sec Sodium 136 (136-145) mmol/L Potassium 4.2 (3.5-5.1) mmol/L Chloride 102 (98-107) mmol/L Carbon Dioxide 22.2 (21.0-32.0) mmol/L Anion Gap 11.8 H (3-11) mmol/L BUN 29 H (7-18) mg/dL Creatinine 1.2 H (0.55-1.02) mg/dL Est GFR (CKD-EPI 2020) 53.46 (mL/min/1.73m2) Glucose 75 (74-106) mg/dL Calcium 7.8 L (8.5-10.1) mg/dL Total Bilirubin 0.3 (0.2-1.0) mg/dL AST 17 (15-37) U/L ALT 21 (14-59) U/L Alkaline Phosphatase 68 (46-116) U/L Troponin I (<or=51) ng/L NT-Pro-B Natriuret Pep (<300) pg/mL Total Protein 6.1 L (6.4-8.2) g/dL Albumin 2.7 L (3.4-5.0) g/dL Lipase (<78) U/L Urine Color (Yellow) Urine Clarity (Clear) Urine pH (5-8) Ur Specific [place] (1.005-1.025) Urine Protein (Neg-Trace) mg/dL Urine Ketones (Negative) mg/dL Urine Blood (Negative) Urine Nitrite (Negative) Urine Bilirubin (Negative) Urine Urobilinogen (Up to 0.2) mg/dL Ur Leukocyte Esterase (Negative) Urine RBC (0-2) HPF Urine WBC (0-5) HPF Ur Epithelial Cells (Negative) HPF Urine Crystals (Negative) HPF Urine Bacteria (Negative) HPF Urine Casts (Negative) LPF Urine Mucus (Negative) Ur Culture Indicated? Urine Glucose (Negative) mg/dL Urine Opiates Screen Negative (Negative) Urine Methadone Screen Negative (Negative) Ur Barbiturates Screen Positive A (Negative) Ur Tricyclics Screen Negative (Negative) Ur Amphetamines Screen Negative (Negative) U Benzodiazepines Scrn Negative (Negative) Urine Cocaine Screen Negative (Negative) Ur THC Screen Negative (Negative) Ethyl Alcohol (<10) mg/dL COVID-19 Source SARS-CoV-2 (PCR) (Negative) Influenza Type A (PCR) (Negative) Influenza Type B (PCR) (Negative) RSV (PCR) (Negative) ABO/Rh Antibody Screen Crossmatch 07/29/24 07/29/24 07/29/24 Range/Units 01:30 01:24 01:08 WBC 7.50 (4.4-10.8) 10^3/uL RBC 3.93 (3.93-5.22) 10^6/uL Hgb 10.0 L (11.2-15.7) g/dL Hct 34.1 L (36.0-46.0) % MCV 87 (80-95) fL MCH 25.4 L (27.0-33.0) pg MCHC 29.3 L (32.0-36.0) % RDW 21.2 H (11.7-14.6) % Plt Count 366 (130-400) 10^3/uL MPV 9.9 (8.0-11.0) fL Immature Gran % Neutrophils % % Lymphocytes % % Monocytes % % Eosinophils % % Basophils % % Metamyelocytes % Myelocytes % Nucleated RBC % (0.0-0.3) % Absolute Neutrophils (1.2-6.7) 10^3/uL Absolute Lymphocytes (1.2-3.4) 10^3/uL Absolute Monocytes (0.1-0.8) 10^3/uL Absolute Eosinophils (0.0-0.7) 10^3/uL Absolute Basophils (0.0-0.2) 10^3/uL RBC Morphology Hypochromasia Acanthocytes (Spur) PT (9.1-11.1) sec INR (0.9-1.1) APTT 21.9 (20.6-30.2) sec Sodium (136-145) mmol/L Potassium (3.5-5.1) mmol/L Chloride (98-107) mmol/L Carbon Dioxide (21.0-32.0) mmol/L Anion Gap (3-11) mmol/L BUN (7-18) mg/dL Creatinine (0.55-1.02) mg/dL Est GFR (CKD-EPI 2020) (mL/min/1.73m2) Glucose (74-106) mg/dL Calcium (8.5-10.1) mg/dL Total Bilirubin (0.2-1.0) mg/dL AST (15-37) U/L ALT (14-59) U/L Alkaline Phosphatase (46-116) U/L Troponin I Cancelled Cancelled (<or=51) ng/L NT-Pro-B Natriuret Pep (<300) pg/mL Total Protein (6.4-8.2) g/dL Albumin (3.4-5.0) g/dL Lipase (<78) U/L Urine Color (Yellow) Urine Clarity (Clear) Urine pH (5-8) Ur Specific [place] (1.005-1.025) Urine Protein (Neg-Trace) mg/dL Urine Ketones (Negative) mg/dL Urine Blood (Negative) Urine Nitrite (Negative) Urine Bilirubin (Negative) Urine Urobilinogen (Up to 0.2) mg/dL Ur Leukocyte Esterase (Negative) Urine RBC (0-2) HPF Urine WBC (0-5) HPF Ur Epithelial Cells (Negative) HPF Urine Crystals (Negative) HPF Urine Bacteria (Negative) HPF Urine Casts (Negative) LPF Urine Mucus (Negative) Ur Culture Indicated? Urine Glucose (Negative) mg/dL Urine Opiates Screen (Negative) Urine Methadone Screen (Negative) Ur Barbiturates Screen (Negative) Ur Tricyclics Screen (Negative) Ur Amphetamines Screen (Negative) U Benzodiazepines Scrn (Negative) Urine Cocaine Screen (Negative) Ur THC Screen (Negative) Ethyl Alcohol (<10) mg/dL COVID-19 Source SARS-CoV-2 (PCR) (Negative) Influenza Type A (PCR) (Negative) Influenza Type B (PCR) (Negative) RSV (PCR) (Negative) ABO/Rh Antibody Screen Crossmatch 07/29/24 07/28/24 07/28/24 Range/Units 00:30 23:25 21:25 WBC (4.4-10.8) 10^3/uL RBC (3.93-5.22) 10^6/uL Hgb (11.2-15.7) g/dL Hct (36.0-46.0) % MCV (80-95) fL MCH (27.0-33.0) pg MCHC (32.0-36.0) % RDW (11.7-14.6) % Plt Count (130-400) 10^3/uL MPV (8.0-11.0) fL Immature Gran % Neutrophils % % Lymphocytes % % Monocytes % % Eosinophils % % Basophils % % Metamyelocytes % Myelocytes % Nucleated RBC % (0.0-0.3) % Absolute Neutrophils (1.2-6.7) 10^3/uL Absolute Lymphocytes (1.2-3.4) 10^3/uL Absolute Monocytes (0.1-0.8) 10^3/uL Absolute Eosinophils (0.0-0.7) 10^3/uL Absolute Basophils (0.0-0.2) 10^3/uL RBC Morphology Hypochromasia Acanthocytes (Spur) PT (9.1-11.1) sec INR (0.9-1.1) APTT (20.6-30.2) sec Sodium (136-145) mmol/L Potassium (3.5-5.1) mmol/L Chloride (98-107) mmol/L Carbon Dioxide (21.0-32.0) mmol/L Anion Gap (3-11) mmol/L BUN (7-18) mg/dL Creatinine (0.55-1.02) mg/dL Est GFR (CKD-EPI 2020) (mL/min/1.73m2) Glucose (74-106) mg/dL Calcium (8.5-10.1) mg/dL Total Bilirubin (0.2-1.0) mg/dL AST (15-37) U/L ALT (14-59) U/L Alkaline Phosphatase (46-116) U/L Troponin I 11 9 (<or=51) ng/L NT-Pro-B Natriuret Pep 1240 H (<300) pg/mL Total Protein (6.4-8.2) g/dL Albumin (3.4-5.0) g/dL Lipase (<78) U/L Urine Color Yellow (Yellow) Urine Clarity Clear (Clear) Urine pH 5.5 (5-8) Ur Specific [place] 1.015 (1.005-1.025) Urine Protein Negative (Neg-Trace) mg/dL Urine Ketones Negative (Negative) mg/dL Urine Blood Trace-intact H (Negative) Urine Nitrite Negative (Negative) Urine Bilirubin Negative (Negative) Urine Urobilinogen 0.2 (Up to 0.2) mg/dL Ur Leukocyte Esterase Negative (Negative) Urine RBC 0-2 (0-2) HPF Urine WBC 0-2 (0-5) HPF Ur Epithelial Cells Rare (Negative) HPF Urine Crystals Negative (Negative) HPF Urine Bacteria Rare (Negative) HPF Urine Casts 0-2 Hyaline (Negative) LPF Urine Mucus Trace (Negative) Ur Culture Indicated? No Urine Glucose Negative (Negative) mg/dL Urine Opiates Screen (Negative) Urine Methadone Screen (Negative) Ur Barbiturates Screen (Negative) Ur Tricyclics Screen (Negative) Ur Amphetamines Screen (Negative) U Benzodiazepines Scrn (Negative) Urine Cocaine Screen (Negative) Ur THC Screen (Negative) Ethyl Alcohol (<10) mg/dL COVID-19 Source Nasopharynx SARS-CoV-2 (PCR) Negative (Negative) Influenza Type A (PCR) Negative (Negative) Influenza Type B (PCR) Negative (Negative) RSV (PCR) Negative (Negative) ABO/Rh Antibody Screen Crossmatch 07/28/24 Range/Units 20:20 WBC 6.39 (4.4-10.8) 10^3/uL RBC 3.62 L (3.93-5.22) 10^6/uL Hgb 9.3 L (11.2-15.7) g/dL Hct 31.0 L (36.0-46.0) % MCV 86 (80-95) fL MCH 25.7 L (27.0-33.0) pg MCHC 30.0 L (32.0-36.0) % RDW 21.1 H (11.7-14.6) % Plt Count 359 D (130-400) 10^3/uL MPV 9.9 (8.0-11.0) fL Immature Gran % See Differential Neutrophils % 50.0 % Lymphocytes % 34.0 % Monocytes % 8.0 % Eosinophils % 2.0 % Basophils % 2.0 % Metamyelocytes % 2 Myelocytes % 2 Nucleated RBC % 0.0 (0.0-0.3) % Absolute Neutrophils 3.20 (1.2-6.7) 10^3/uL Absolute Lymphocytes 2.17 (1.2-3.4) 10^3/uL Absolute Monocytes 0.51 (0.1-0.8) 10^3/uL Absolute Eosinophils 0.13 (0.0-0.7) 10^3/uL Absolute Basophils 0.13 (0.0-0.2) 10^3/uL RBC Morphology See Below Hypochromasia 1+ Acanthocytes (Spur) 2+ PT 10.9 (9.1-11.1) sec INR 1.1 (0.9-1.1) APTT (20.6-30.2) sec Sodium 141 (136-145) mmol/L Potassium 4.6 (3.5-5.1) mmol/L Chloride 107 (98-107) mmol/L Carbon Dioxide 24.6 (21.0-32.0) mmol/L Anion Gap 9.4 (3-11) mmol/L BUN 29 H (7-18) mg/dL Creatinine 1.5 H (0.55-1.02) mg/dL Est GFR (CKD-EPI 2020) 40.90 (mL/min/1.73m2) Glucose 78 (74-106) mg/dL Calcium 7.8 L (8.5-10.1) mg/dL Total Bilirubin 0.1 L (0.2-1.0) mg/dL AST 18 (15-37) U/L ALT 26 (14-59) U/L Alkaline Phosphatase 65 (46-116) U/L Troponin I 9 (<or=51) ng/L NT-Pro-B Natriuret Pep (<300) pg/mL Total Protein 6.3 L (6.4-8.2) g/dL Albumin 2.7 L (3.4-5.0) g/dL Lipase 48 (<78) U/L Urine Color (Yellow) Urine Clarity (Clear) Urine pH (5-8) Ur Specific [place] (1.005-1.025) Urine Protein (Neg-Trace) mg/dL Urine Ketones (Negative) mg/dL Urine Blood (Negative) Urine Nitrite (Negative) Urine Bilirubin (Negative) Urine Urobilinogen (Up to 0.2) mg/dL Ur Leukocyte Esterase (Negative) Urine RBC (0-2) HPF Urine WBC (0-5) HPF Ur Epithelial Cells (Negative) HPF Urine Crystals (Negative) HPF Urine Bacteria (Negative) HPF Urine Casts (Negative) LPF Urine Mucus (Negative) Ur Culture Indicated? Urine Glucose (Negative) mg/dL Urine Opiates Screen (Negative) Urine Methadone Screen (Negative) Ur Barbiturates Screen (Negative) Ur Tricyclics Screen (Negative) Ur Amphetamines Screen (Negative) U Benzodiazepines Scrn (Negative) Urine Cocaine Screen (Negative) Ur THC Screen (Negative) Ethyl Alcohol 194.4 H (<10) mg/dL COVID-19 Source SARS-CoV-2 (PCR) (Negative) Influenza Type A (PCR) (Negative) Influenza Type B (PCR) (Negative) RSV (PCR) (Negative) ABO/Rh A Positive Antibody Screen NEGATIVE Crossmatch See Detail Intake and Output - 24 Hour Total 07/28/24 19:15 thru 07/29/24 16:55 Intake Total 2770.633 Output Total 1150 Balance 1620.633 Weight 181 lb 3.52 oz Intake: IV 1690.633 Oral 1080 Output: Urine 1150 Other: Urine Color Yellow Urine Appearance Clear Urine Odor Normal Comment unknown amount mixed with stool Stool Size Moderate Stool Characteristics Soft Black [place] Risk Assessment History of Falls Previous History 07/29/24 00:52 Contributing Factors Impairments 07/29/24 00:52 Ambulatory Aids Independent 07/29/24 00:52 Tubes/Lines W/no contributing factors 07/29/24 00:52 Gait Evaluation No gait disturbance 07/29/24 00:52 Cognition No cognitive impairment 07/28/24 19:43 Fall Total Score 28 07/29/24 00:52 Level of Risk Moderate Risk 07/29/24 00:52 Problems (Last Reviewed 07/28/24 @ 22:55 by Carlos A Valadez) CKD (chronic kidney disease) (Chronic) Acute alcohol intoxication (Acute) Pulmonary embolus (Acute) GI bleed (Chronic) Depression with anxiety (Chronic) Hypertension (Chronic) COPD with hypoxia (Chronic) v v v v v v v v v Sending and/or Receiving Nurses: Please use comment section below to note any information pertinent to the patient hand-off not included above. Information / Comments: Heparin gtt at 1200 units/hr Report received from: Hetal Vilchis RN
[2024-07-29] MEDS: QUEtiapine 100 MG TAB 150 MG PO (19:49)
[2024-07-29] MEDS: traZODone 50 MG TAB 75 MG PO (19:53)
[2024-07-29] MEDS: Topiramate 50 MG TAB PO (19:54)
[2024-07-30] MEDS: Normal Saline 1,000 ML 125 ML IV (01:57)
[2024-07-30 03:44] VITALS: BP 147/77; PULSE 75; RESP 16; TEMP 36.4; O2SAT 96
[2024-07-30 07:32] LABS: PTT Activated 38.5 sec (20.6-30.2)
[2024-07-30 07:38] LABS: Anion Gap 9.2 mmol/L (3-11); BUN 18 mg/dL (7-18); CO2 21.8 mmol/L (21.0-32.0); CREATININE 0.8 mg/dL (0.55-1.02); Calcium 8.2 mg/dL (8.5-10.1); Chloride 107 mmol/L (98-107); Estimated GFR 86.96 (mL/min/1.73m2); Glucose 108 mg/dL (74-106); Magnesium 1.8 mg/dL (1.8-2.4); Sodium 138 mmol/L (136-145)
[2024-07-30] MEDS: Multivitamin TAB 1 TAB PO (07:41)
[2024-07-30] MEDS: Folic Acid 1 MG TAB PO (07:41)
[2024-07-30] MEDS: Citalopram 20 MG TAB 40 MG PO (07:41)
[2024-07-30] MEDS: Ferrous Sulfate 325 MG TAB PO (07:41)
[2024-07-30] MEDS: Pantoprazole 40 MG TABCR PO (07:41)
[2024-07-30] MEDS: Doxepin 25 MG CAP PO (07:41)
[2024-07-30] MEDS: Docusate Sodium 100 MG CAP PO (07:41)
[2024-07-30] MEDS: Thiamine 100 MG TAB PO (07:42)
[2024-07-30] MEDS: Cyanocobalamin 500 MCG TAB PO (07:42)
[2024-07-30] MEDS: Normal Saline Flush 10 ML SYR IVP (07:43)
[2024-07-30] MEDS: Heparin in 0.45% NaCl 25,000 UNIT/250 ML BAG 15 UNIT IVINF (08:23)
[2024-07-30] MEDS: Budesonide/Formoterol 160/4.5 6 GM 60 PUFF INH IH (08:38)
[2024-07-30] MEDS: Tiotropium Bromide-Respimat 10 PUFF INH 2 PUFF IH (08:39)
[2024-07-30 09:03] LABS: Abs Immature Grans 0.08 10^3/uL (0.0-0.06); Absolute Basophil Count 0.04 10^3/uL (0.0-0.2); Absolute Eosinophil Count 0.29 10^3/uL (0.0-0.7); Absolute Lymphocyte Count 1.29 10^3/uL (1.2-3.4); Absolute Neutrophil Count 4.56 10^3/uL (1.2-6.7); Basophils % 0.6 %; Eosinophils % 4.1 %; HCT 27.4 % (36.0-46.0); HGB 8.3 g/dL (11.2-15.7); Immature Grans % 1.1 %; MCHC 30.3 % (32.0-36.0); MCV 86 fL (80-95); MPV 10.5 fL (8.0-11.0); Monocytes % 12.6 %; Neutrophils % 63.6 %; Platelet Count 307 10^3/uL (130-400); RBC 3.19 10^6/uL (3.93-5.22); RDW 21.2 % (11.7-14.6); RDW-SD 58.4 fL; WBC 7.16 10^3/uL (4.4-10.8)
--- NOTE | 2024-07-30 09:13 | PDOC.CMPRO ---
Date of service: 07/30/24 Time of Service: 09:13 Care Management Progress Note Discharge Potential Discharge Needs: PCP F/U Appt Anticipated Barriers to Discharge: None Identified Patient/Family Education Needs: Review discharge instructions, discuss Ask Me Three Transportation: Private vehicle Plan: Anticipate Adrianne will be discharged back intro the community when medically cleared. She will follow up with her PCP and plan of care and transport via [facility]. CM will follow and continue to support discharge planning. Social Determinants of Health Screening Will the Patient Participate in the Screening?: Declined to provide
--- NOTE | 2024-07-30 09:28 | CMDISCH_ITS ---
Date of service: 07/30/24 Time of Service: 09:29 LACE Index Scoring Tool Questions: Length of Stay (in days): 2 Was the patient admitted via the E.D.?: Yes Comorbidities: Chronic Pulmonary Disease and Liver or Renal Disease E.D. Visits: 11 Answers: Total Score: 14 Risk of Readmission: High Risk Care Management Discharge Plan Reason for Hospitalization: PE Discharge Plan: Adrianne will be discharged back intro the community. She will follow up with her PCP and plan of care and transport via [facility]. Patient/Family Education Needs: Review of discharge instructions, limitations, follow up plan and discuss Ask Me Three Services Needed at Discharge: Transportation SDOH Health Related Social Needs: Health related social needs housing instability, house d, with risk of homelessness (Z59.811), food insecurity (Z59.41), material hardship(utilities) (Z59.12), problems related to housing/economic circumstances (Z59.89), feeling lonely/isolated (Z60.8)
[2024-07-30 09:59] LABS: Anisocytosis 1+; Diff Comment RBC Morph Reviewed
--- NOTE | 2024-07-30 10:47 | W.PM.DS.N ---
Date of service: 07/30/24 Time of Service: 10:47 DS: Diagnosis Discharge Diagnosis (1) Pulmonary embolus: Status: Acute (2) Acute alcohol intoxication: Status: Acute (3) GI bleed: Status: Chronic (4) COPD with hypoxia: Status: Chronic (5) Hypertension: Status: Chronic (6) Depression with anxiety: Status: Chronic (7) CKD (chronic kidney disease): Status: Chronic Discharge Plan Disposition Patient Disposition: Home Condition: Good Discharge Details Reason For Visit: Pulmonary Embolus, alcohol intoxication, GI bleed Admit Date/Time: 07/28/24 23:54 Admit Provider: Carlos A Valadez Attending Provider: Carlos A Valadez Primary Care Provider: Paula Barboza Hospital Course Hospital Course: Patient initially presented after being found intoxicated in her car being hypotensive. Upon evaluation in the emergency department she was found to have pulmonary emboli, given recent hospitalization for GI bleed she was placed on heparin drip with close hemoglobin monitoring. Patient did not appear to have any drop in her hemoglobin during administration of heparin drip, and was therefore determined to be able to transition to p.o. Eliquis for treatment of pulmonary embolus. Otherwise it was determined that the patient was stable for discharge. Home Meds and New Rx's Prescriptions: New Eliquis DVT-PE Treat 30D Start 5 mg (74 tabs) tablets,dose pack See Rx Instructions .ROUTE .COMPLEX Qty: 74 0RF Rx Instructions: orally per package directions Continued lisinopril 20 mg tablet 20 mg PO DAILY Qty: 90 3RF citalopram 40 mg tablet 40 mg PO DAILY Qty: 90 3RF Spiriva Respimat 1.25 mcg/actuation mist 2 puff inhalation DAILY Qty: 4 12RF albuterol sulfate [Ventolin HFA] 90 mcg/actuation HFA aerosol inhaler See Rx Instructions .ROUTE .COMPLEX Qty: 18 12RF Dose Instruction: INHALE TWO PUFFS BY MOUTH EVERY 4 HOURS NEEDED Rx Instructions: INHALE TWO PUFFS BY MOUTH EVERY 4 HOURS NEEDED ferrous sulfate 325 mg (65 mg iron) tablet 325 mg PO DAILY Qty: 30 0RF folic acid 1 mg tablet 1 mg PO DAILY Qty: 30 0RF hydroxyzine HCl 25 mg tablet 25 mg PO TID PRN (Reason: anxiety) Qty: 180 1RF (DME) Hand Held Nebulizer See Rx Instructions .Route .MEDSUPPLY Qty: 1 0RF Rx Instructions: As directed clobetasol-emollient 15 GM cream 1 applic Topical DAILY PRNQty: 60 Rx Instructions: Apply to hands PRN (DME) POCKET CHAMBER Spacer See Rx Instructions .ROUTE .MEDSUPPLY Qty: 1 0RF Rx Instructions: As directed doxepin 25 mg capsule See Rx Instructions .ROUTE .COMPLEX Qty: 60 5RF Dose Instruction: TAKE ONE CAPSULE BY MOUTH TWICE A DAY Rx Instructions: TAKE ONE CAPSULE BY MOUTH TWICE A DAY quetiapine 100 mg tablet See Rx Instructions .ROUTE .COMPLEX Qty: 135 0RF Dose Instruction: TAKE 1 & 1/2 TABLETS BY MOUTH AT BEDTIME DAILY Rx Instructions: TAKE 1 & 1/2 TABLETS BY MOUTH AT BEDTIME DAILY trazodone 50 mg tablet See Rx Instructions .ROUTE .COMPLEX Qty: 135 1RF Dose Instruction: TAKE 1 & 1/2 TABLETS BY MOUTH DAILY AT BEDTIME NEEDED FOR SLEEP Rx Instructions: TAKE 1 & 1/2 TABLETS BY MOUTH DAILY AT BEDTIME NEEDED FOR SLEEP cyanocobalamin (vitamin B-12) [Vitamin B-12] 500 mcg Tablet 500 mcg PO DAILY Qty: 30 0RF docusate sodium [Colace] 100 mg Capsule 100 mg PO BID Qty: 60 0RF polyethylene glycol 3350 [Miralax] 17 gram/dose powder 17 g PO .Nightly Qty: 510 0RF bisacodyl 10 mg suppository 10 mg AK DAILY PRN (Reason: constipation lobger than 48 hours) Qty: 12 0RF ([facility]) nebulizers Misc See Rx Instructions .ROUTE .MEDSUPPLY Qty: 1 0RF Rx Instructions: As directed thiamine HCl (vitamin B1) 100 mg tablet 100 mg PO DAILY Patient Comments: TAKE ONE TABLET BY MOUTH EVERY DAY multivitamin [Multiple Vitamins] Tablet 1 tab PO DAILY Qty: 0 0RF ipratropium-albuterol 0.5 mg-3 mg(2.5 mg base)/3 mL Solution For Nebulization 3 ml UPD Q6H PRN (Reason: Wheezing) Qty: 24 2RF naltrexone 50 mg Tablet 50 mg PO DAILY Qty: 30 2RF topiramate 50 mg Tablet 50 mg PO HS Qty: 30 0RF budesonide-formoterol [Symbicort] 160-4.5 mcg/actuation Hfa Aerosol Inhaler 2 puff inhalation BID Qty: 1 2RF thiamine mononitrate (vit B1) [Vitamin B-1 (mononitrate)] 100 mg Tablet 100 mg PO QAM Qty: 30 0RF pantoprazole [Protonix] 40 mg tablet,delayed release (DR/EC) 40 mg PO DAILY Qty: 30 2RF Discharge Instructions Stand Alone Forms: Nursing Discharge Form Referrals: Paula Barboza NP [Primary Care Provider] - 08/08/24 1:30 pm Activity:: Activity as Tolerated Equipment/Supplies:: No Equipment Needed Diet:: As Tolerated Discharge Orders Discharge Orders: Discharge Order (Routine); Ordered 07/30/24 Ordered By: Gregorio Smart DS: Summary Time Spent with Patient providing and/or coordinating discharge services: Greater than 30 minutes Status at Discharge Functional status at discharge: independent ambulation Overall status at discharge: patient is back to baseline Mental Status: mental status grossly normal Speech and Movement: speech and movement normal Mood: congruent mood Affect: normal affect Quality:SDOH Health Related Social Needs: Health related social needs housing instability, housed, with risk of homelessness (Z59.811), food insecurity (Z59.41), material hardship(utilities) (Z59.12), problems related to housing/economic circumstances (Z59.89), feeling lonely/isolated (Z60.8) Exam Narrative Exam Narrative: Well-appearing female laying in bed in no acute distress, ANO x 4, heart regular rhythm, lungs clear to auscultation bilaterally, abdomen soft, nontender, nondistended Psych Mental Status: mental status grossly normal Speech and Movement: speech and movement normal Mood: congruent mood Affect: normal affect DS: Data Vitals/I&O Vitals and I&O: Vital Signs Temperature 97.5 F L 07/30/24 03:44 Temperature Source Tympanic 07/30/24 03:44 Pulse 75 07/30/24 03:44 Pulse 93 H 07/29/24 15:01 Respiratory Rate 16 07/30/24 03:44 Respiratory Effort Short of Breath 07/29/24 00:52 Respiratory Depth Normal 07/29/24 00:52 Respiratory Pattern Normal 07/29/24 00:52 Blood Pressure 147/77 H 07/30/24 03:44 Blood Pressure Mean 100 07/30/24 03:44 Blood Pressure Position Supine 07/29/24 00:52 Pulse Oximetry 96 07/30/24 03:44 Oxygen Delivery Method Room Air 07/30/24 03:44 Oxygen Flow Rate 0 07/30/24 03:44 Pain Level 2 07/30/24 10:02 Intake & Output 07/29/24 07/30/24 07/30/24 17:59 05:59 17:59 Intake Total 1770.633 / 5952.637 7179.417 / 4075.050 479.233 / 479.233 Output Total 650 / 650 1600 / 2250 450 / 450 Balance 1120.633 / 1120.633 704.417 / 1825.050 29.233 / 29.233 Weight 181 lb 3.52 oz 180 lb 5.41 oz Intake: IV 1170.633 / 7253.333 8944.417 / 3225.050 119.233 / 119.233 Oral 600 / 600 250 / 850 360 / 360 Output: Urine 650 / 650 1600 / 2250 450 / 450 Other: Urine Color Yellow Yellow Yellow Urine Appearance Clear Clear Clear Urine Odor Normal Normal Comment unknown amount mixed with stool Stool Size Moderate Stool Characteristics Soft Black Data Completed and Pending Labs on day of discharge: Labs from last 24 hours 07/30/24 07/30/24 07/29/24 08:50 06:55 23:26 WBC 7.16 Cancelled RBC 3.19 L Cancelled Hgb 8.3 L Cancelled Hct 27.4 L Cancelled MCV 86 Cancelled MCH 26.0 L Cancelled MCHC 30.3 L Cancelled RDW 21.2 H Cancelled Plt Count 307 Cancelled MPV 10.5 Cancelled Immature Gran % 1.1 Neutrophils % 63.6 Lymphocytes % 18.0 Monocytes % 12.6 Eosinophils % 4.1 Basophils % 0.6 Nucleated RBC % 0.0 Absolute Neutrophils 4.56 Absolute Lymphocytes 1.29 Absolute Monocytes 0.90 H Absolute Eosinophils 0.29 Absolute Basophils 0.04 Anisocytosis 1+ APTT 38.5 H 41.0 H Sodium 138 Potassium 4.0 Chloride 107 Carbon Dioxide 21.8 Anion Gap 9.2 BUN 18 Creatinine 0.8 Est GFR (CKD-EPI 2020) 86.96 Glucose 108 H Calcium 8.2 L Magnesium 1.8 07/29/24 15:47 WBC RBC Hgb Hct MCV MCH MCHC RDW Plt Count MPV Immature Gran % Neutrophils % Lymphocytes % Monocytes % Eosinophils % Basophils % Nucleated RBC % Absolute Neutrophils Absolute Lymphocytes Absolute Monocytes Absolute Eosinophils Absolute Basophils Anisocytosis APTT 41.8 H Sodium Potassium Chloride Carbon Dioxide Anion Gap BUN Creatinine Est GFR (CKD-EPI 2020) Glucose Calcium Magnesium PFSH All Active Problems (Updated 07/29/24 @ 06:31 by Carlos A Valadez) CKD (chronic kidney disease) (Chronic) Acute alcohol intoxication (Acute) Pulmonary embolus (Acute) GI bleed (Chronic) Anemia (Chronic) Depression with anxiety (Chronic) Encounter for medical clearance for patient hold (Acute) Abdominal fluid collection (Acute) Alcohol intoxication (Acute) Dyslipidemia (Acute) Hyperglycemia (Acute) Hypertension (Chronic) Acute hypoxemic respiratory failure (Acute) Acute on chronic blood loss anemia (Acute) COPD with hypoxia (Chronic) Fracture of rib of left side (Acute) Abdominal pain, chronic, left upper quadrant (Acute) Acute exacerbation of chronic obstructive pulmonary disease (COPD) (Acute) Alcohol intoxication in active alcoholic (Acute) Alcohol intoxication (Acute) Alcoholic gastritis without bleeding (Acute) Chronic upper gastrointestinal bleeding (Acute) Cyst and pseudocyst of pancreas (Acute) Alcohol abuse (Chronic) Heavy menses (Acute) Encounter for screening colonoscopy (Acute) Anemia (Chronic) Anxiety (Chronic) DUB (dysfunctional uterine bleeding) (Acute) Impaired fasting blood sugar (Acute 08/01/05) Obesity, unspecified (Acute 05/31/11) Atypical squamous cells of undetermined significance (ASC-US) on cervical Pap smear (Acute 08/05/09) ASCUS 08/05/09; 05/31/2011 Spinal stenosis of lumbar region (Acute 01/11/10) LS spine surg; Dr Sebastian Walker Tobacco dependence (Acute 08/01/05) Medical History DVT prophylaxis Chronic pain (02/20/09) chronic tramadol rx, back pain, sciatica despite LS surg 2009. Depression (04/03/15) Sertaline in the past with good relief of sx but then developed intolerable adverse rxns (nausea, flushing) Started on venlafaxine 03/2015 PHQ9 score = 9, indicating mild depression 03/2015 Anemia Alcohol use disorder COPD (chronic obstructive pulmonary disease) HTN (hypertension), benign Spinal stenosis Lumbar region Surgical History Internal injury, spleen, closed with IR embolization Back surgery L5-S1 decompression 2009 Family History Mother , lung cancer at age 50. No problems noted. Father , MVA No problems noted. Other Lung cancer Social History Smoking/Tobacco Use Status: Current every day Tobacco Type: cigarettes Smoking risk assessment performed?: Yes Alcohol Intake: current Alcohol Intake frequency: 3 or more drinks per day Alcohol type: beer and hard liquor Drug use: Never Substance use type: does not use Housing: homeless Do you feel safe at home: Yes Do you feel safe in your relationship?: Yes Time Spent with Patient Time Spent with Patient: <45 minutes Time was spent: preparing to see the patient(eg.review tests), obtaining and/or reviewing separately otained hiistory, ordering medications,tests, procedures, referring, communicating with other health college and career counselor, indepentently interpreting results, counseling the patient and care coordination
[2024-07-30] MEDS: Apixaban 5 MG TAB 10 MG PO (11:25)
== END 2024-07-30 13:03 | disposition home or self-care (01) | DRG 175 ==
LOC: ER 07-29 00:18 → ICU 07-29 00:45 → MS 07-29 16:01
PROVIDERS: Family Medicine; Admitting Provider Family Medicine; Emergency Provider Physician Assistant; PCP Nurse Practitioner; Responsible Provider Family Medicine; Visit Provider Family Medicine
DX: I26.94 Multiple subsegmental thrombotic pulmonary emboli without acute cor pulmonale (principal); K29.21 Alcoholic gastritis with bleeding; Z59.02 Unsheltered homelessness; Z59.12 Inadequate housing utilities; F41.8 Other specified anxiety disorders; I12.9 Hypertensive chronic kidney disease with stage 1 through stage 4 chronic kidney disease, or unspecified chronic kidney disease; N18.32 Chronic kidney disease, stage 3b; F10.129 Alcohol abuse with intoxication, unspecified; Y90.6 Blood alcohol level of 120-199 mg/100 ml; F32.A Depression, unspecified; J44.9 Chronic obstructive pulmonary disease, unspecified; I95.9 Hypotension, unspecified; Z59.41 Food insecurity; Z60.8 Other problems related to social environment; D64.9 Anemia, unspecified; E78.5 Hyperlipidemia, unspecified; F17.210 Nicotine dependence, cigarettes, uncomplicated; M48.061 Spinal stenosis, lumbar region without neurogenic claudication; G89.29 Other chronic pain; E66.9 Obesity, unspecified; R73.01 Impaired fasting glucose; Z68.31 Body mass index [BMI] 31.0-31.9, adult
CPT/HCPCS: 00123; 36415; 71275; 80048; 80053; 80307; 83690; 85027; 86850; 86900; 86901; 86920; 87637; 93005; 94640; 96361; 96374; 99285; 99291; 74174; 80320; 81003; 81015; 83735; 83880; 84484; 85025; 85610; 85730; 93010; 93306; 93970; 94664; 99223; 99233; 99239; J1644; J2470; J3490

== ENCOUNTER 2024-08-04 15:37 | Inpatient (IN) | payer MEDICAID, SELFPAY ==
[2024-08-04] VITALS (54 sets, daily range): BP systolic 103–144; BP diastolic 55–112; PULSE 84–120; RESP 11–29; TEMP 36.5; O2SAT 84–100
--- NOTE | 2024-08-04 15:45 | RT.EKG_ITS ---
APPROVED REPORT Exam: Resting ECG Reason for Exam: SOB Patient Location: E HR:97 bpm ECG Measurements Heart Rate 97 AXIS AK 157 P 54 QRSd 98 QRS 55 QT 369 T 40 QTc 470 Conclusion Sinus rhythm, rate 97 No interval abnormalities No STEMI No significant changes from priors
--- NOTE | 2024-08-04 15:45 | DI.CT_ITS ---
Exam(s) CT THORAX ABD/PEL CTA EXAM: CT THORAX ABD/PEL CTA CLINICAL HISTORY: hemetemesis, cough, hx GI bleed, PE, and etoh. TECHNIQUE: Imaging Protocol: Axial computed tomography images with coronal and sagittal reformatted images were created and reviewed. Performed with GI bleed protocol CONTRAST MATERIAL: Intravenous: Omnipaque 350 Contrast volume:75 mL Oral: None COMPARISON: CT CT ABDOMEN PELVIS WO from 04/16/[address] ABDOMEN PELVIS W from 07/05/[address] THORAX ABD/PEL CTA from 07/28/2024 FINDINGS: CHEST: PULMONARY ARTERIES: The previously described subtle bilateral lower lobe subsegmental pulmonary emboli are no longer evident on the present study. There are no new additional intraluminal filling defects in the pulmonary arterial tree. LUNGS: There are no infiltrates nor pleural effusions and is no evidence of pulmonary infarction in patient whose recent CT scan of 07/28/2024 revealed pulmonary emboli within bilateral lower lobes. There are no ominous pulmonary nodules. MEDIASTINUM: There is no hilar nor mediastinal adenopathy. Visualized thyroid unremarkable. CARDIAC: Heart size is normal. There is no pericardial effusion. No shift of the interventricular septum AORTA: Caliber of the thoracic aorta is within normal limits.There is no evidence of aortic dissection. No evidence of abdominal aortic aneurysm and only mild atherosclerotic disease in the aorta. Aortic bifurcation and iliac arteries appear unremarkable as do the common femoral arteries. No aneurysms. No dissection. OSSEOUS: The appearance of the previously described fractures of the posterior aspects of the left 8th, 9th, 10th, and 11th ribs is unchanged. There are no new additional fractures evident. ' ABDOMEN: There is no evidence of abdominal aortic aneurysm nor dissection.There is no aneurysmal dilatation of the common iliac arteries.The celiac and superior mesenteric arteries are patent. There is no evidence of generalized ascites. LIVER: There are no focal hepatic lesions nor dilatation of intrahepatic ducts. GALLBLADDER/BILIARY: No obvious gallbladder pathology. CBD is not dilated. PANCREAS: Pancreatic head, uncinate process, neck and body appear unremarkable. There is a chronic collection extending from the pancreatic tail towards the spleen and diaphragm which remains unchanged from multiple prior studies and the appearance the adjacent spleen is also unchanged with heterogeneous enhancement and small subcapsular hematoma unchanged. SPLEEN: Heterogeneous enhancement and subcapsular small hematoma, similar to recent studies dating back to at least 04/16/2024. The splenic vein is again not opacified. Portal vein confluence and main portal vein and SMV are patent. ADRENALS: No significant adrenal findings. KIDNEYS: No evidence of renal laceration or subcapsular hematomas. No cysts. No solid renal masses. No calculi nor hydronephrosis. ABDOMINAL AORTA: Unremarkable-see above LYMPH NODES: There is no retroperitoneal nor para-aortic adenopathy. No obvious mesenteric masses. ABDOMINAL WALL: No evidence of significant anterior abdominal wall hernia. GI: There is no evidence of bowel obstruction, free air, nor abscess.There is also no evidence of intraluminal extravasation of injected intravenous contrast to suggest source site of GI bleed. PELVIS: LYMPH NODES: There is no intrapelvic nor inguinal adenopathy. GI: No evidence of appendicitis.No evidence of sigmoid diverticulitis. URINARY BLADDER: No calculi nor masses evident REPRODUCTIVE: There are multiple uterine fibroids again noted, some of which are partially calcified. OSSEOUS: No significant osseous lesions. No fractures nor listhesis. IMPRESSION: 1. There is no significant intraluminal extravasation of injected IV contrast to identify a source site of GI bleeding. 2. No evidence of bowel obstruction, free air, nor ischemic appearing bowel loops. 3. There is a tract of fluid extending from the pancreatic tail towards the spleen and to the undersurface of the left hemidiaphragm, similar to previous and there is also heterogeneous appearance and enhancement of the spleen and small subcapsular hematoma in the spleen again noted. These findings are unchanged from recent studies and may be posttrauma related and indirectly related to the multiple left-sided rib fractures. The remainder of the pancreas appears unremarkable. 4. The previously present pulmonary emboli in the subsegmental bilateral lower lobe pulmonary arteries seen on this study of July 28, 2024 are not seen on today's study. These have most probably resolved. There are no new intraluminal filling defects. No evidence of pulmonary infarction, infiltrates, nor pleural effusions. 5.. The previously described fractures of the left 8th, 9th, 10th, and 11th ribs appear unchanged. 6. Appears unremarkable with no aneurysms and no evidence of dissection nor prominent atherosclerotic disease. Findings called by myself to ER physician 08/04/2024 at 5:40 p.m. RADIATION DOSE DELIVERED: 782.95mGy.cm Total DLP DATA REPOSITORY: All CT scans at this facility are submitted to the National Radiology Data Registry (NRDR) Dose Index Registry (DIR) with the [employer] (A[employer]). RADIATION OPTIMIZATION: All CT scans at this facility use at least one of these dose optimization techniques: automated exposure control; mA and/or kV adjustment per patient size (includes targeted exams where dose is matched to clinical indication); or iterative reconstruction.
--- NOTE | 2024-08-04 15:51 | ED.GENADUL_ITS ---
Discharge Plan Disposition Patient Disposition: Admit to [facility] Condition: Fair Discharge Details Clinical Impression: Hematemesis, Alcohol intoxication in active alcoholic, COPD with hypoxia, Anemia Primary Care Provider: Paula Barboza ED Provider: Shirley Marquez Home Meds and New Rx's Prescriptions: No Action lisinopril 20 mg tablet 20 mg PO DAILY Qty: 90 3RF citalopram 40 mg tablet 40 mg PO DAILY Qty: 90 3RF Spiriva Respimat 1.25 mcg/actuation mist 2 puff inhalation DAILY Qty: 4 12RF albuterol sulfate [Ventolin HFA] 90 mcg/actuation HFA aerosol inhaler See Rx Instructions .ROUTE .COMPLEX Qty: 18 12RF Dose Instruction: INHALE TWO PUFFS BY MOUTH EVERY 4 HOURS NEEDED Rx Instructions: INHALE TWO PUFFS BY MOUTH EVERY 4 HOURS NEEDED ferrous sulfate 325 mg (65 mg iron) tablet 325 mg PO DAILY Qty: 30 0RF folic acid 1 mg tablet 1 mg PO DAILY Qty: 30 0RF hydroxyzine HCl 25 mg tablet 25 mg PO TID PRN (Reason: anxiety) Qty: 180 1RF (DME) Hand Held Nebulizer See Rx Instructions .Route .MEDSUPPLY Qty: 1 0RF Rx Instructions: As directed clobetasol-emollient 15 GM cream 1 applic Topical DAILY PRNQty: 60 Rx Instructions: Apply to hands PRN (DME) POCKET CHAMBER Spacer See Rx Instructions .ROUTE .MEDSUPPLY Qty: 1 0RF Rx Instructions: As directed doxepin 25 mg capsule See Rx Instructions .ROUTE .COMPLEX Qty: 60 5RF Dose Instruction: TAKE ONE CAPSULE BY MOUTH TWICE A DAY Rx Instructions: TAKE ONE CAPSULE BY MOUTH TWICE A DAY quetiapine 100 mg tablet See Rx Instructions .ROUTE .COMPLEX Qty: 135 0RF Dose Instruction: TAKE 1 & 1/2 TABLETS BY MOUTH AT BEDTIME DAILY Rx Instructions: TAKE 1 & 1/2 TABLETS BY MOUTH AT BEDTIME DAILY trazodone 50 mg tablet See Rx Instructions .ROUTE .COMPLEX Qty: 135 1RF Dose Instruction: TAKE 1 & 1/2 TABLETS BY MOUTH DAILY AT BEDTIME NEEDED FOR SLEEP Rx Instructions: TAKE 1 & 1/2 TABLETS BY MOUTH DAILY AT BEDTIME NEEDED FOR SLEEP cyanocobalamin (vitamin B-12) [Vitamin B-12] 500 mcg Tablet 500 mcg PO DAILY Qty: 30 0RF docusate sodium [Colace] 100 mg Capsule 100 mg PO BID Qty: 60 0RF polyethylene glycol 3350 [Miralax] 17 gram/dose powder 17 g PO .Nightly Qty: 510 0RF bisacodyl 10 mg suppository 10 mg HI DAILY PRN (Reason: constipation lobger than 48 hours) Qty: 12 0RF Eliquis DVT-PE Treat 30D Start 5 mg (74 tabs) tablets,dose pack See Rx Instructions .ROUTE .COMPLEX Qty: 74 0RF Rx Instructions: orally per package directions (DME) nebulizers [facility] [place] See Rx Instructions .ROUTE .MEDSUPPLY Qty: 1 0RF Rx Instructions: As directed thiamine HCl (vitamin B1) 100 mg tablet 100 mg PO DAILY Patient Comments: TAKE ONE TABLET BY MOUTH EVERY DAY multivitamin [Multiple Vitamins] Tablet 1 tab PO DAILY Qty: 0 0RF ipratropium-albuterol 0.5 mg-3 mg(2.5 mg base)/3 mL Solution For Nebulization 3 ml UPD Q6H PRN (Reason: Wheezing) Qty: 24 2RF naltrexone 50 mg Tablet 50 mg PO DAILY Qty: 30 2RF topiramate 50 mg Tablet 50 mg PO HS Qty: 30 0RF budesonide-formoterol [Symbicort] 160-4.5 mcg/actuation Hfa Aerosol Inhaler 2 puff inhalation BID Qty: 1 2RF thiamine mononitrate (vit B1) [Vitamin B-1 (mononitrate)] 100 mg Tablet 100 mg PO QAM Qty: 30 0RF pantoprazole [Protonix] 40 mg tablet,delayed release (DR/EC) 40 mg PO DAILY Qty: 30 2RF HPI General Mode of arrival: EMS . Date/Time Provider Initiated Documentation: 08/04/24 15:39 . Limitations to Documentation: no limitations . Information obtained by: patient, EMS and old records reviewed . HPI Narrative: This is a 53-year-old female patient with a past medical history most notable for a recent diagnosis of pulmonary embolism, started on Eliquis, alcohol use disorder, GI bleed with chronic anemia, COPD, CKD, presenting for evaluation of hematemesis. The patient summoned EMS today after experiencing an episode of large-volume hematemesis with bright red blood and clots. She was discharged from the hospital 5 days ago, states that she has lost her Eliquis and has not been able to take it for the last 2 days or so. She did consume a pint of vodka prior to coming to the emergency department today. She states that she has noted some blood in her stools as well, as recently as 3 days ago. She reports left-sided abdominal pain, and has had some cough and shortness of breath associated with her recent illness. She has not had any endoscopy or colonoscopies performed yet, unknown history of varices. Related Data Home Medications ?Medication ?Instructions ?Recorded ?Confirmed clobetasol-emollient 0.05 % 1 applic topical DAILY PRN #60 12/08/16 08/04/24 topical cream grams inhalational spacing device #1 ea 09/28/20 08/04/24 (POCKET CHAMBER spacer) nebulizers #1 ea 03/16/21 08/04/24 citalopram 40 mg tablet 40 mg PO DAILY #90 tabs 10/0 09/1208/04/24 lisinopril 20 mg tablet 20 mg PO DAILY #90 tab-caps 11/27/23 08/04/24 tiotropium bromide 1.25 2 puff inhalation DAILY #4 g franky 11/27/23 08/04/24 mcg/actuation mist for inhalation (Spiriva Respimat) doxepin 25 mg capsule See Rx Instructions .Route 1 03/24/23 08/04/24 .COMPLEX #60 caps cyanocobalamin (vitamin B-12) 500 500 mcg PO DAILY #30 tabs 03/13/24 08/04/24 mcg tablet (Vitamin B-12) docusate sodium 100 mg capsule 100 mg PO BID #60 caps 03/13/24 08/04/24 (Colace) bisacodyl 10 mg rectal suppository 10 mg HI DAILY PRN constipation 03/22/24 08/04/24 lobger than 48 hours #12 ea polyethylene glycol 3350 17 17 g PO .Nightly #510 gram s 03/22/24 08/04/24 gram/dose oral powder (Miralax) quetiapine 100 mg tablet See Rx Instructions .Route 0 06/03/24 08/04/24 .COMPLEX #135 tabs Hand Held Nebulizer #1 ea 06/21/24 08/04/24 albuterol sulfate 90 mcg/actuation See Rx Instructions .Route 06/21/24 08/04/24 aerosol inhaler (Ventolin HFA) .COMPLEX #18 grams ferrous sulfate 325 mg (65 mg 325 mg PO DAILY #30 tabs 06/21/24 08/04/24 iron) tablet folic acid 1 mg tablet 1 mg PO DAILY #30 tabs 06/2108/04/24 hydroxyzine HCl 25 mg tablet 25 mg PO TID PRN anxiety #180 tabs 06/21/24 08/04/24 trazodone 50 mg tablet See Rx Instructions .Route 0 07/01/24 08/04/24 .COMPLEX #135 tabs thiamine HCl (vitamin B1) 100 mg 100 mg PO DAILY 07/2408/04/24 tablet budesonide-formoterol HFA 160 2 puff inhalation BID #1 inh 07/27/24 08/04/24 mcg-4.5 mcg/actuation aerosol inhaler (Symbicort) ipratropium 0.5 mg-albuterol 3 mg 3 ml UPD Q6H PRN Whe ezing #24 pkgs 07/27/24 08/04/24 (2.5 mg base)/3 mL nebulization soln multivitamin (Multiple Vitamins 1 tab PO DAILY #0 tabs 07/27/24 08/04/24 tablet) naltrexone 50 mg tablet 50 mg PO DAILY #30 tabs 06/09/1308/04/24 pantoprazole 40 mg tablet,delayed 40 mg PO DAILY #30 t abs 07/27/24 08/04/24 release (Protonix) thiamine mononitrate (vit B1) 100 100 mg PO QAM #30 ta bs 07/27/24 08/04/24 mg tablet (Vitamin B-1 (mononitrate)) topiramate 50 mg tablet 50 mg PO HS #30 tabs 5 08/04/24 apixaban 5 mg (74 tabs) tablets in See Rx Instructions PO .COMPLEX 07/30/24 08/04/24 a dose pack (Eliquis DVT-PE Treat #74 dose pk 30D Start) Previous Rx's ?Medication ?Instructions ?Recorded inhalational spacing device #1 ea 09/28/20 (POCKET CHAMBER spacer) nebulizers #1 ea 03/16/21 citalopram 40 mg tablet 40 mg PO DAILY #90 tabs 09/12 lisinopril 20 mg tablet 20 mg PO DAILY #90 tab-caps 11/27/23 tiotropium bromide 1.25 2 puff inhalation DAILY #4 g franky 11/27/23 mcg/actuation mist for inhalation (Spiriva Respimat) doxepin 25 mg capsule See Rx Instructions .Route 1 03/24/23 .COMPLEX #60 caps cyanocobalamin (vitamin B-12) 500 500 mcg PO DAILY #30 tabs 03/13/24 mcg tablet (Vitamin B-12) docusate sodium 100 mg capsule 100 mg PO BID #60 caps 03/13/24 (Colace) bisacodyl 10 mg rectal suppository 10 mg HI DAILY PRN constipation 03/22/24 lobger than 48 hours #12 ea polyethylene glycol 3350 17 17 g PO .Nightly #510 gram s 03/22/24 gram/dose oral powder (Miralax) quetiapine 100 mg tablet See Rx Instructions .Route 0 06/03/24 .COMPLEX #135 tabs Hand Held Nebulizer #1 ea 06/21/24 albuterol sulfate 90 mcg/actuation See Rx Instructions .Route 06/21/24 aerosol inhaler (Ventolin HFA) .COMPLEX #18 grams ferrous sulfate 325 mg (65 mg 325 mg PO DAILY #30 tabs 06/21/24 iron) tablet folic acid 1 mg tablet 1 mg PO DAILY #30 tabs 06/21 hydroxyzine HCl 25 mg tablet 25 mg PO TID PRN anxiety #180 tabs 06/21/24 trazodone 50 mg tablet See Rx Instructions .Route 0 07/01/24 .COMPLEX #135 tabs budesonide-formoterol HFA 160 2 puff inhalation BID #1 inh 07/27/24 mcg-4.5 mcg/actuation aerosol inhaler (Symbicort) ipratropium 0.5 mg-albuterol 3 mg 3 ml UPD Q6H PRN Whe ezing #24 pkgs 07/27/24 (2.5 mg base)/3 mL nebulization soln multivitamin (Multiple Vitamins 1 tab PO DAILY #0 tabs 07/27/24 tablet) naltrexone 50 mg tablet 50 mg PO DAILY #30 tabs 09/13 pantoprazole 40 mg tablet,delayed 40 mg PO DAILY #30 t abs 07/27/24 release (Protonix) thiamine mononitrate (vit B1) 100 100 mg PO QAM #30 ta bs 07/27/24 mg tablet (Vitamin B-1 (mononitrate)) topiramate 50 mg tablet 50 mg PO HS #30 tabs 5 apixaban 5 mg (74 tabs) tablets in See Rx Instructions PO .COMPLEX 07/30/24 a dose pack (Eliquis DVT-PE Treat #74 dose pk 30D Start) Allergies Allergy/AdvReac Type Severity Reaction Status Date / Time hydromorphone (From Dilaudid) Allergy Severe Itching Verified 08/04/24 15:50 oxycodone AdvReac Unknown TERRIBLE Verified 08/04/24 15:50 DREAMS General Stated Complaint: Abd Prob ALISTAIR: 2 Exam Narrative Exam Narrative: Gen: Awake and alert, in no apparent distress HEENT: Non-icteric sclera Neck: Supple Lungs: No apparent respiratory distress, normal respiratory effort. The patient does have diffuse expiratory wheezes and coarse crackles throughout CV: Appears well perfused, heart with tachycardic rate but regular rhythm Abdomen: Non-distended, soft, tender to palpation in the left upper quadrant without rigidity, rebound, or guarding MSK: Moves 4 extremities without apparent limitation in ROM. No peripheral edema Skin: Visualized skin without rashes, cyanosis. Neuro: Normal Gait, no obvious focal deficits or facial asymmetry. Speaks in full, clear sentences. Psych: Appropriate for situation. Course Vital Signs Vital signs: Vital Signs Temperature 36.5 C 08/04/24 15:41 Pulse 112 H 08/04/24 15:41 Respiratory Rate 29 H 08/04/24 15:41 Blood Pressure 144/88 H 08/04/24 15:41 Temperature 36.5 C 08/04/24 15:41 Pulse 112 H 08/04/24 15:41 Respiratory Rate 29 H 08/04/24 15:41 Blood Pressure 144/88 H 08/04/24 15:41 Pain Level 8 08/04/24 15:41 Medical Decision Making This is a 53-year-old female patient presenting for evaluation of hematemesis. My differential includes but is not limited to GI bleed, esophageal varices was not considered, as well as alcoholic gastritis and esophagitis, hepatitis. Lower GI bleed less likely. Considered anemia, metabolic electrolyte derangement, kidney injury, liver disease, coagulopathy. The patient is currently endorsing active intoxication, and is unlikely to experience any alcohol withdrawal symptoms in the acute phase. Additionally, she has no documented history of alcohol withdrawal seizures. Considered respiratory pathology including COPD exacerbation, pneumonia, aspiration/pneumonitis. We obtained and I reviewed an EKG, which shows a sinus rhythm with a rate of 97, with no interval abnormality, ectopy, or ischemia. Will obtain laboratory studies to include CBC, CMP, magnesium, troponin, INR, and type and screen. I will provide the patient with a dose of Protonix and ceftriaxone given her history of alcohol use disorder, and we will obtain a CT of her thorax to evaluate for infectious pathology of the lungs, as well as a CTA abdomen pelvis to evaluate for large active gastric bleeding. The patient will be provided with Zofran for symptomatic management, as well as a duo nebulizer for her wheezing. When sleeping she was noted to desaturate to the mid 80s and was placed on some oxygen by nasal cannula. - I reviewed the patient's laboratory studies, which note no leukocytosis, stable anemia at 9.0 and no thrombocytopenia. The INR is 1.1, chemistry panel without significant electrolyte derangement though she does have an anion gap to 17.2, and a slightly low mag at 1.6. This was repleted intravenously. There is no kidney dysfunction or liver disease, troponin is negative and without interval increase in 1 hour delta recheck to suggest active ischemia. Lipase is low, ethyl alcohol elevated to 252, initial CIWA score low at 2 (positive for nausea). CT scan reviewed by myself and discussed with the radiologist, noting no active extravasation of contrast suggestive of large volume GI bleed. Otherwise she has some stable appearing posttraumatic changes to the pancreas and spleen, and fractures of the ribs and multiple states of healing. No significant evidence for cirrhosis or varices, and octreotide was held. I discussed the case with Dr. Jang of general surgery, who will follow the case. She has had no subsequent episodes of hematemesis, and does not at this time meet criteria for emergent endoscopy. Discussed the case with the hospitalist team who is graciously accepted this patient for admission to their service for ongoing workup and management of her hematemesis. While in the emergency department she did not undergo any screening for withdrawal. She remained hemodynamically appropriate and was transferred from the emergency department without incident. Shirley Marquez MD Quality:SDOH Health Related Social Needs: Health related social needs risk of homeless food inse curity material hardship house/econ circumstance lonely/isolated Critical Care Time Critical Care Time Critical Care Time: Yes Total Critical Care Time: 35 Attestation: Upon my evaluation, this patient had a high probability of imminent or life- threatening deterioration due to GI bleed with hematemesis requiring IV medications, which required my direct attention, intervention, and personal management. I have personally provided 35 minutes of critical care time exclusive of time spent on separately billable procedures. Time includes review of laboratory data, radiology results, discussion with consultants, and monitoring for potential decompensation. Interventions were performed as documented above. Shirley Marquez MD PFSH All Active Problems (Updated 08/04/24 @ 19:06 by Shirley Marquez MD) Hematemesis (Acute) CKD (chronic kidney disease) (Chronic) Pulmonary embolus (Acute) Anemia (Chronic) Depression with anxiety (Chronic) Encounter for medical clearance for patient hold (Acute) Abdominal fluid collection (Acute) Alcohol intoxication (Acute) Dyslipidemia (Acute) Hyperglycemia (Acute) Hypertension (Chronic) Acute hypoxemic respiratory failure (Acute) Acute on chronic blood loss anemia (Acute) COPD with hypoxia (Chronic) Fracture of rib of left side (Acute) Abdominal pain, chronic, left upper quadrant (Acute) Acute exacerbation of chronic obstructive pulmonary disease (COPD) (Acute) Alcohol intoxication in active alcoholic (Acute) Alcohol intoxication (Acute) Alcoholic gastritis without bleeding (Acute) Chronic upper gastrointestinal bleeding (Acute) Cyst and pseudocyst of pancreas (Acute) Alcohol abuse (Chronic) Heavy menses (Acute) Encounter for screening colonoscopy (Acute) Anemia (Chronic) Anxiety (Chronic) DUB (dysfunctional uterine bleeding) (Acute) Impaired fasting blood sugar (Acute 08/01/05) Obesity, unspecified (Acute 05/31/11) Atypical squamous cells of undetermined significance (ASC-US) on cervical Pap smear (Acute 08/05/09) ASCUS 08/05/09; 05/31/2011 Spinal stenosis of lumbar region (Acute 01/11/10) LS spine surg; Dr Sebastian Walker Tobacco dependence (Acute 08/01/05) Medical History DVT prophylaxis Chronic pain (02/20/09) chronic tramadol rx, back pain, sciatica despite LS surg 2009. Depression (04/03/15) Sertaline in the past with good relief of sx but then developed intolerable adverse rxns (nausea, flushing) Started on venlafaxine 03/2015 PHQ9 score = 9, indicating mild depression 03/2015 Anemia Alcohol use disorder COPD (chronic obstructive pulmonary disease) HTN (hypertension), benign Spinal stenosis Lumbar region Surgical History Internal injury, spleen, closed with IR embolization Back surgery L5-S1 decompression 2009 Family History Mother , lung cancer at age 50. No problems noted. Father , MVA No problems noted. Other Lung cancer Social History Smoking/Tobacco Use Status: Current every day Tobacco Type: cigarettes Smoking risk assessment performed?: Yes Alcohol Intake: current Alcohol Intake frequency: 3 or more drinks per day Alcohol type: beer and hard liquor Drug use: Never Substance use type: does not use Housing: homeless Do you feel safe at home: Yes Do you feel safe in your relationship?: Yes
[2024-08-04] MEDS: cefTRIAXone 1 GM/50 ML BAG IVPB (15:59)
[2024-08-04] MEDS: Pantoprazole 40 MG VIAL 80 MG IVP (16:00)
[2024-08-04] MEDS: Ondansetron 4 MG/2 ML VIAL IVP (16:01)
[2024-08-04 16:04] LABS: Abs Immature Grans 0.03 10^3/uL (0.0-0.06); Absolute Basophil Count 0.09 10^3/uL (0.0-0.2); Absolute Eosinophil Count 0.06 10^3/uL (0.0-0.7); Absolute Lymphocyte Count 1.48 10^3/uL (1.2-3.4); Absolute Monocyte Count 0.66 10^3/uL (0.1-0.8); Absolute Neutrophil Count 6.24 10^3/uL (1.2-6.7); Basophils % 1.1 %; Eosinophils % 0.7 %; HCT 29.2 % (36.0-46.0); Immature Grans % 0.4 %; Lymphocytes % 17.3 %; MCH 26.9 pg (27.0-33.0); MCHC 30.8 % (32.0-36.0); MCV 87 fL (80-95); MPV 10.1 fL (8.0-11.0); Monocytes % 7.7 %; Neutrophils % 72.8 %; Platelet Count 400 10^3/uL (130-400); RBC 3.34 10^6/uL (3.93-5.22); RDW 22.5 % (11.7-14.6); RDW-SD 71.9 fL; WBC 8.56 10^3/uL (4.4-10.8)
[2024-08-04] MEDS: Omnipaque 350 MG/ML 100 ML BTL IJ (16:20)
[2024-08-04] MEDS: Normal Saline - Diluent 50 ML VIAL IJ (16:21)
[2024-08-04 16:23] LABS: INR 1.1 (0.9-1.1); Prothrombin Time 10.6 sec (9.1-11.1)
[2024-08-04 16:43] LABS: Anisocytosis 2+
[2024-08-04] MEDS: Albuterol/Ipratropium 3 ML UPD VIAL UPD (16:45)
[2024-08-04 16:49] LABS: Lipase 28 U/L (<78)
[2024-08-04 16:54] LABS: ALT 26 U/L (14-59); AST 19 U/L (15-37); Albumin 3.3 g/dL (3.4-5.0); Alkaline Phosphatase 81 U/L (46-116); Anion Gap 17.2 mmol/L (3-11); BUN 11 mg/dL (7-18); Bilirubin, Total 0.4 mg/dL (0.2-1.0); CO2 20.8 mmol/L (21.0-32.0); CREATININE 0.8 mg/dL (0.55-1.02); Calcium 8.4 mg/dL (8.5-10.1); Chloride 103 mmol/L (98-107); Estimated GFR 86.96 (mL/min/1.73m2); Glucose 94 mg/dL (74-106); Magnesium 1.6 mg/dL (1.8-2.4); Potassium 3.5 mmol/L (3.5-5.1); Sodium 141 mmol/L (136-145); Total Protein 7.1 g/dL (6.4-8.2); Troponin I 18 ng/L (<or=51)
[2024-08-04 17:05] LABS: ETHANOL BLOOD 252.3 mg/dL (<10)
[2024-08-04] MEDS: MAGNESIUM SULFATE 2 GM/50 ML BAG IV_INF (17:17)
[2024-08-04 17:54] LABS: Troponin I 14 ng/L (<or=51)
--- NOTE | 2024-08-04 20:26 | W.PC.ACHO ---
Registration Status: REG ER Primary Language: Preferred Language: Persian ED Information & Data Chief Complaint Abd Prob 08/04/24 16:12 Chief Complaint Abd Prob 08/04/24 15:55 Other Complaint RespSymp 08/04/24 15:41 Triage Note Brought in with h/o vomiting 08/04/24 15:41 clots today. patient was discharged from hospital 2 days ago. Recently diagnosed with PEs. complaining of left sided Abd pain. Patient state she was supposed to on blood thinners but she lost them as she discharged day before yesterday. Reported blood in stool 3 days ago. Patient been coughing for the past couple of days Medical / Surgical History (Last Reviewed 07/28/24 @ 22:55 by Carlos A Valadez) DVT prophylaxis Chronic pain (02/20/09) Depression (04/03/15) Anemia Alcohol use disorder COPD (chronic obstructive pulmonary disease) HTN (hypertension), benign Spinal stenosis (Last Reviewed 07/28/24 @ 22:55 by Carlos A Valadez) Internal injury, spleen, closed Back surgery Most Recent Vital Signs Temperature 36.5 C 08/04/24 16:12 Pulse 86 08/04/24 19:31 Pulse 85 08/04/24 19:31 Respiratory Rate 16 08/04/24 19:31 Respiratory Pattern Normal 08/04/24 16:16 Blood Pressure 125/69 08/04/24 19:31 Blood Pressure Mean 88 08/04/24 19:31 Pulse Oximetry 99 08/04/24 19:31 Oxygen Delivery Method Nasal Cannula 08/04/24 17:31 Oxygen Flow Rate 2 08/04/24 17:31 Pain Level 8 08/04/24 16:12 Allergies hydromorphone (From Dilaudid) Allergy (Severe, Verified 08/04/24 15:50) Itching Face swelling oxycodone Adverse Reaction (Unknown, Verified 08/04/24 15:50) TERRIBLE DREAMS FROM PERCOCET Active Medications Generic Name Dose Route Start Last Admin Trade Name Freq PRN Reason Stop Dose Admin Iohexol 100 ml 08/04/24 16:30 08/04/24 16:20 Omnipaque 350 Mg/Ml 100 Ml Btl IJ 09/03/24 23:59 75 ml DIRECTED SHASHANK Administration Sodium Chloride 50 ml 08/04/24 16:30 08/04/24 16:21 Normal Saline - Diluent 50 Ml Vial IJ 50 ml .FOR DI USE SHASHANK Administration IV IV Catheter Type [Left Wrist] Saline Lock IV Catheter Gauge [Right Hand] 18 IV Catheter Gauge [Left Wrist] 20 Diet Orders Category Date Time Status Nothing Per Oral [DIET] Nutrition 08/04/24 18:48 Active Diagnostics 08/04/24 08/04/24 08/04/24 Range/Units 18:49 17:20 16:07 WBC (4.4-10.8) 10^3/uL RBC (3.93-5.22) 10^6/uL Hgb (11.2-15.7) g/dL Hct (36.0-46.0) % MCV (80-95) fL MCH (27.0-33.0) pg MCHC (32.0-36.0) % RDW (11.7-14.6) % Plt Count (130-400) 10^3/uL MPV (8.0-11.0) fL Immature Gran % % Neutrophils % % Lymphocytes % % Monocytes % % Eosinophils % % Basophils % % Nucleated RBC % (0.0-0.3) % Absolute Neutrophils (1.2-6.7) 10^3/uL Absolute Lymphocytes (1.2-3.4) 10^3/uL Absolute Monocytes (0.1-0.8) 10^3/uL Absolute Eosinophils (0.0-0.7) 10^3/uL Absolute Basophils (0.0-0.2) 10^3/uL RBC Morphology Anisocytosis PT (9.1-11.1) sec INR (0.9-1.1) Sodium (136-145) mmol/L Potassium (3.5-5.1) mmol/L Chloride (98-107) mmol/L Carbon Dioxide (21.0-32.0) mmol/L Anion Gap (3-11) mmol/L BUN (7-18) mg/dL Creatinine (0.55-1.02) mg/dL Est GFR (CKD-EPI 2020) (mL/min/1.73m2) Glucose (74-106) mg/dL Calcium (8.5-10.1) mg/dL Magnesium (1.8-2.4) mg/dL Total Bilirubin (0.2-1.0) mg/dL AST (15-37) U/L ALT (14-59) U/L Alkaline Phosphatase (46-116) U/L Troponin I Cancelled 14 (<or=51) ng/L Total Protein (6.4-8.2) g/dL Albumin (3.4-5.0) g/dL Lipase (<78) U/L Ethyl Alcohol (<10) mg/dL ABO/Rh A Positive Antibody Screen NEGATIVE 08/04/24 Range/Units 15:30 WBC 8.56 (4.4-10.8) 10^3/uL RBC 3.34 L (3.93-5.22) 10^6/uL Hgb 9.0 L (11.2-15.7) g/dL Hct 29.2 L (36.0-46.0) % MCV 87 (80-95) fL MCH 26.9 L (27.0-33.0) pg MCHC 30.8 L (32.0-36.0) % RDW 22.5 H (11.7-14.6) % Plt Count 400 (130-400) 10^3/uL MPV 10.1 (8.0-11.0) fL Immature Gran % 0.4 % Neutrophils % 72.8 % Lymphocytes % 17.3 % Monocytes % 7.7 % Eosinophils % 0.7 % Basophils % 1.1 % Nucleated RBC % 0.0 (0.0-0.3) % Absolute Neutrophils 6.24 (1.2-6.7) 10^3/uL Absolute Lymphocytes 1.48 (1.2-3.4) 10^3/uL Absolute Monocytes 0.66 (0.1-0.8) 10^3/uL Absolute Eosinophils 0.06 (0.0-0.7) 10^3/uL Absolute Basophils 0.09 (0.0-0.2) 10^3/uL RBC Morphology See Below Anisocytosis 2+ PT 10.6 (9.1-11.1) sec INR 1.1 (0.9-1.1) Sodium 141 (136-145) mmol/L Potassium 3.5 (3.5-5.1) mmol/L Chloride 103 (98-107) mmol/L Carbon Dioxide 20.8 L (21.0-32.0) mmol/L Anion Gap 17.2 H (3-11) mmol/L BUN 11 (7-18) mg/dL Creatinine 0.8 (0.55-1.02) mg/dL Est GFR (CKD-EPI 2020) 86.96 (mL/min/1.73m2) Glucose 94 (74-106) mg/dL Calcium 8.4 L (8.5-10.1) mg/dL Magnesium 1.6 L (1.8-2.4) mg/dL Total Bilirubin 0.4 (0.2-1.0) mg/dL AST 19 (15-37) U/L ALT 26 (14-59) U/L Alkaline Phosphatase 81 (46-116) U/L Troponin I 18 (<or=51) ng/L Total Protein 7.1 (6.4-8.2) g/dL Albumin 3.3 L (3.4-5.0) g/dL Lipase 28 (<78) U/L Ethyl Alcohol 252.3 H (<10) mg/dL ABO/Rh Antibody Screen Intake and Output - 24 Hour Total 08/04/24 15:33 thru 08/04/24 19:21 Intake Total 100 Balance 100 Weight 78.471 kg Intake: IV 100 Falls Risk Assessment History of Falls Previous History 08/04/24 16:12 Contributing Factors Impairments 08/04/24 16:12 Ambulatory Aids Independent 08/04/24 16:12 Tubes/Lines None 08/04/24 16:12 Gait Evaluation W/any additional score 08/04/24 16:12 Cognition No cognitive impairment 08/04/24 16:12 Fall Total Score 38 08/04/24 16:12 Level of Risk Moderate Risk 08/04/24 16:12 v v v v v v v v v Sending and/or Receiving Nurses: Please use comment section below to note any information pertinent to the patient hand-off not included above. Information / Comments: Can be verbally aggressive, easily get anxious, not showing withdrawal at this moment, vital signs stable, IV 20g left wrist and 18 right hand. Report received from: MARICEL,RN
--- NOTE | 2024-08-04 20:34 | W.PM.HP.N ---
Date of service: 08/04/24 Time of Service: 20:34 Assessment and Plan Assessment and plan (1) Hematemesis: Status: Acute Assessment and plan: High risk with regular alcohol use and recent PE treated with apixaban She has been off the blood thinner x 2 days so no need for reversal. No h/o cirrhosis, her current labs with high normal platelets and her imaging are not consistent with cirrhosis or portal HTN, no indication for antibiotics or somatostatin. Hemodynamically stable, h/h haven't dropped since recent admission. Okay for floor. I do think she needs endoscopy prior to restarting DOAC. Discussed with surgeon. NPO with fluids, plan endoscopy tomorrow. (2) Pulmonary embolus: Status: Acute Assessment and plan: Holding apixaban for now. Resume after endoscopy if we are able to identify and treat source. (3) Alcohol intoxication in active alcoholic: Status: Acute Assessment and plan: She reports 24 hour relapse at levels that are low for her. She does not appear to be in withdrawal, but will monitor. Will not bolus with phenobarbital. I do not expect her to experience significant alcohol withdrawal. (4) Alcohol use disorder: Status: Acute Assessment and plan: Continue topiramate, naltrexone after her procedure. Encourage connecting with therapist and meetings prior to discharge. Living in a car is a major stress, continue to engage community resources. (5) Tobacco dependence: Status: Acute Assessment and plan: NRT prn (6) Hypertension: Status: Chronic Assessment and plan: BP stable. Okay to hold lisinpopril tomorrow before her procedure. (7) Depression with anxiety: Status: Chronic Assessment and plan: Continue outpatient therapy. Okay to give with sips to avoid psychiatric decompensation/withdrawal. (8) CKD (chronic kidney disease): Status: Chronic Assessment and plan: Cr is actaully normal/below baseline. Follow (9) Increased anion gap metabolic acidosis: Status: Acute Assessment and plan: A/w some dehydration. Give liter of LR, then maintenance fluids, follow. She does not look toxic or septic. (10) Hypomagnesemia: Status: Acute Assessment and plan: Given 2g IV, follow in AM. (11) COPD (chronic obstructive pulmonary disease): Assessment and plan: at baseline, continue inhalers. (12) DVT prophylaxis: Assessment and plan: mechanical given UGI bleed History of Present Illness History of Present Illness Chief Complaint: vomiting blood Narrative: 53 yo F with alcohol use disorder, COPD, recent admissions for alcohol withdrawal and subacute GI bleed 07/22-07/27 and pulmonary embolus 07/28 treated with apixaban who presented again today after an episode of vomiting blood. She states she was feeling okay this morning. Around noon she was thirsty and drank a bottle of water quickly. Suddenly she felt nauseous and vomited up a large amount of bright red blood with clots. Afterward, the nausea resolved and has not recurred. She has had some LUQ sharp pain that comes and goes that she relates to her previous splenic trauma, no epigastric pain or other pain. She has been having black stools since her last two admissions, soft, last one this morning. No BRBPR. She has never vomited blood before today, though has had coffee ground emesis back in May of this year. She is taking apixaban for her PEs, but lost her medication so hasn't taken it in about 48 hours. Her breathing is about baseline. She is always a little short of breath. She has not had chest pain, palpitaitons, or lightheadedness. She did drink a little yesterday, states since her last discharge she bought one pint and drank a couple shots. She states she is taking naltrexone and topiramate and they are helping. She wants to stop drinking. Review of Systems All systems reviewed & are unremarkable except as noted in HPI and below ENT Comments: chronic runny nose. Some raspy throat, but doesn't feel sick Respiratory Respiratory: Denies cough Gastrointestinal Gastrointestinal: Denies heartburn Hematologic/Lymphatic Comments: just bruises from last admission. No other bleeding. [facility] All Active Problems (Updated 08/04/24 @ 21:02 by Slava Garcia) Hypomagnesemia (Acute) Increased anion gap metabolic acidosis (Acute) Alcohol use disorder (Acute) Hematemesis (Acute) CKD (chronic kidney disease) (Chronic) Pulmonary embolus (Acute) Anemia (Chronic) Depression with anxiety (Chronic) Encounter for medical clearance for patient hold (Acute) Abdominal fluid collection (Acute) Dyslipidemia (Acute) Hyperglycemia (Acute) Hypertension (Chronic) Acute hypoxemic respiratory failure (Acute) Acute on chronic blood loss anemia (Acute) COPD with hypoxia (Chronic) Fracture of rib of left side (Acute) Abdominal pain, chronic, left upper quadrant (Acute) Acute exacerbation of chronic obstructive pulmonary disease (COPD) (Acute) Alcohol intoxication in active alcoholic (Acute) Alcoholic gastritis without bleeding (Acute) Chronic upper gastrointestinal bleeding (Acute) Cyst and pseudocyst of pancreas (Acute) Heavy menses (Acute) Encounter for screening colonoscopy (Acute) Anemia (Chronic) Anxiety (Chronic) DUB (dysfunctional uterine bleeding) (Acute) Impaired fasting blood sugar (Acute 08/01/05) Obesity, unspecified (Acute 05/31/11) Atypical squamous cells of undetermined significance (ASC-US) on cervical Pap smear (Acute 08/05/09) ASCUS 08/05/09; 05/31/2011 Spinal stenosis of lumbar region (Acute 01/11/10) LS spine surg; Dr Sebastian Walker Tobacco dependence (Acute 08/01/05) Medical History DVT prophylaxis COPD (chronic obstructive pulmonary disease) Alcohol use disorder Anemia HTN (hypertension), benign Chronic pain (02/20/09) chronic tramadol rx, back pain, sciatica despite LS surg 2009. Depression (04/03/15) Sertaline in the past with good relief of sx but then developed intolerable adverse rxns (nausea, flushing) Started on venlafaxine 03/2015 PHQ9 score = 9, indicating mild depression 03/2015 Spinal stenosis Lumbar region Surgical History Internal injury, spleen, closed with IR embolization Back surgery L5-S1 decompression 2009 Family History Mother , lung cancer at age 50. No problems noted. Father , MVA No problems noted. Other Lung cancer Social History Smoking/Tobacco Use Status: Current every day Tobacco Type: cigarettes Smoking risk assessment performed?: Yes Alcohol Intake: current Alcohol Intake frequency: 3 or more drinks per day Alcohol type: beer and hard liquor Drug use: Never Substance use type: does not use Housing: homeless Do you feel safe at home: Yes Do you feel safe in your relationship?: Yes Meds Allergies and Home Medications Allergies Allergy/AdvReac Type Severity Reaction Status Date / Time hydromorphone (From Dilaudid) Allergy Severe Itching Verified 08/04/24 15:50 oxycodone AdvReac Unknown TERRIBLE Verified 08/04/24 15:50 DREAMS Home Medications ?Medication ?Instructions ?Recorded ?Confirmed ?Type clobetasol-emollient 0.05 % 1 applic topical DAILY PRN #60 12/08/16 08/04/24 History topical cream grams inhalational spacing device #1 ea 09/28/20 08/04/24 Rx (POCKET CHAMBER spacer) nebulizers #1 ea 03/16/21 08/04/24 Rx citalopram 40 mg tablet 40 mg PO DAILY #90 tabs 11/27/23 08/04/24 Rx lisinopril 20 mg tablet 20 mg PO DAILY #90 tab-caps 11/27/23 08/04/24 Rx tiotropium bromide 1.25 2 puff inhalation DAILY #4 grams 11/27/23 08/04/24 Rx mcg/actuation mist for inhalation (Spiriva Respimat) doxepin 25 mg capsule See Rx Instructions .Route 01/22/24 08/04/24 Rx .COMPLEX #60 caps cyanocobalamin (vitamin B-12) 500 500 mcg PO DAILY #30 tabs 03/13/24 08/04/24 Rx mcg tablet (Vitamin B-12) docusate sodium 100 mg capsule 100 mg PO BID #60 caps 03/13/24 08/04/24 Rx (Colace) bisacodyl 10 mg rectal suppository [address] DAILY PRN constipation 03/22/24 08/04/24 Rx lobger than 48 hours #12 ea polyethylene glycol 3350 17 17 g PO .Nightly #510 grams 03/22/24 08/04/24 Rx gram/dose oral powder (Miralax) quetiapine 100 mg tablet See Rx Instructions .Route 06/03/24 08/04/24 Rx .COMPLEX #135 tabs Hand Held Nebulizer #1 ea 06/21/24 08/04/24 Rx albuterol sulfate 90 mcg/actuation See Rx Instructions .Route 06/21/24 08/04/24 Rx aerosol inhaler (Ventolin HFA) .COMPLEX #18 grams ferrous sulfate 325 mg (65 mg 325 mg PO DAILY #30 tabs 06/21/24 08/04/24 Rx iron) tablet folic acid 1 mg tablet 1 mg PO DAILY #30 tabs 06/21/24 08/04/24 Rx hydroxyzine HCl 25 mg tablet 25 mg PO TID PRN anxiety #180 tabs 06/21/24 08/04/24 Rx trazodone 50 mg tablet See Rx Instructions .Route 07/01/24 08/04/24 Rx .COMPLEX #135 tabs thiamine HCl (vitamin B1) 100 mg 100 mg PO DAILY 07/24/24 08/04/24 History tablet budesonide-formoterol HFA 160 2 puff inhalation BID #1 inh 07/27/24 08/04/24 Rx mcg-4.5 mcg/actuation aerosol inhaler (Symbicort) ipratropium 0.5 mg-albuterol 3 mg 3 ml UPD Q6H PRN Wheezing #24 pkgs 07/27/24 08/04/24 Rx (2.5 mg base)/3 mL nebulization soln multivitamin (Multiple Vitamins 1 tab PO DAILY #0 tabs 07/27/24 08/04/24 Rx tablet) naltrexone 50 mg tablet 50 mg PO DAILY #30 tabs 07/27/24 08/04/24 Rx pantoprazole 40 mg tablet,delayed 40 mg PO DAILY #30 tabs 07/27/24 08/04/24 Rx release (Protonix) thiamine mononitrate (vit B1) 100 100 mg PO QAM #30 tabs 07/27/24 08/04/24 Rx mg tablet (Vitamin B-1 (mononitrate)) topiramate 50 mg tablet 50 mg PO HS #30 tabs 07/27/24 08/04/24 Rx apixaban 5 mg (74 tabs) tablets in See Rx Instructions PO .COMPLEX 07/30/24 08/04/24 Rx a dose pack (Eliquis DVT-PE Treat #74 dose pk 30D Start) Exam Narrative Exam Narrative: GEN: Alert and oriented x 4, pleasant and cooperative, gives linear history. No acute distress at rest. HEENT: Head atraumatic. Conjunctiva clear, no icterus. PEERL, EOMI. no rhinorrhea. MMM, OP benign. Neck is supple with no masses or lymphadenopathy, trachea midline LUNGS: Normal effort, 97% on RA, mild diffuse expiratory wheeze. no rales. CV: RRR with rate around 90, no murmurs, gallops, or rubs. ABD: active bowel sounds, soft. Mild RUQ tenderness. Nondistended. No masses or clear HSM. EXT: no cyanosis, clubbing, or edema MSK: No joint redness or swelling NEURO: CN 2-12 grossly intact. Normal movement of 4 extremities. Normal speech and coordination. No tremor SKIN: No rashes or open wounds. Bruises on arms (from IVs) PSYCH: normal mood and affect, normal thought process, no hallucinations Results Imaging EKG: report reviewed and image reviewed (NSR 97, nl axis, intervals (qtc 470), nl ST-T abnormalities) Imaging Studies: CTA C/A/P: 1. There is no significant intraluminal extravasation of injected IV contrast to identify a source site of GI bleeding. 2. No evidence of bowel obstruction, free air, nor ischemic appearing bowel loops. 3. There is a tract of fluid extending from the pancreatic tail towards the spleen and to the undersurface of the left hemidiaphragm, similar to previous and there is also heterogeneous appearance and enhancement of the spleen and small subcapsular hematoma in the spleen again noted. These findings are unchanged from recent studies and may be posttrauma related and indirectly related to the multiple left-sided rib fractures. The remainder of the pancreas appears unremarkable. 4. The previously present pulmonary emboli in the subsegmental bilateral lower lobe pulmonary arteries seen on this study of July 28, 2024 are not seen on today's study. These have most probably resolved. There are no new intraluminal filling defects. No evidence of pulmonary infarction, infiltrates, nor pleural effusions. 5.. The previously described fractures of the left 8th, 9th, 10th, and 11th ribs appear unchanged. 6. Appears unremarkable with no aneurysms and no evidence of dissection nor prominent atherosclerotic disease. Labs 08/04/24 15:30 08/04/24 15:30 Labs: Laboratory Results - last 24 hr 08/04/24 08/04/24 08/04/24 15: 16:07 17:20 WBC 8.56 RBC 3.34 L Hgb 9.0 L Hct 29.2 L MCV 87 MCH 26.9 L MCHC 30.8 L RDW 22.5 H Plt Count 400 MPV 10.1 Immature Gran % 0.4 Neutrophils % 72.8 Lymphocytes % 17.3 Monocytes % 7.7 Eosinophils % 0.7 Basophils % 1.1 Nucleated RBC % 0.0 Absolute Neutrophils 6.24 Absolute Lymphocytes 1.48 Absolute Monocytes 0.66 Absolute Eosinophils 0.06 Absolute Basophils 0.09 RBC Morphology See Below Anisocytosis 2+ PT 10.6 INR 1.1 Sodium 141 Potassium 3.5 Chloride 103 Carbon Dioxide 20.8 L Anion Gap 17.2 H BUN 11 Creatinine 0.8 Est GFR (CKD-EPI 2020) 86.96 Glucose 94 Calcium 8.4 L Magnesium 1.6 L Total Bilirubin 0.4 AST 19 ALT 26 Alkaline Phosphatase 81 Troponin I 18 14 Total Protein 7.1 Albumin 3.3 L Lipase 28 Ethyl Alcohol 252.3 H ABO/Rh A Positive Antibody Screen NEGATIVE 08/04/24 18:49 WBC RBC Hgb Hct MCV MCH MCHC RDW Plt Count MPV Immature Gran % Neutrophils % Lymphocytes % Monocytes % Eosinophils % Basophils % Nucleated RBC % Absolute Neutrophils Absolute Lymphocytes Absolute Monocytes Absolute Eosinophils Absolute Basophils RBC Morphology Anisocytosis PT INR Sodium Potassium Chloride Carbon Dioxide Anion Gap BUN Creatinine Est GFR (CKD-EPI 2020) Glucose Calcium Magnesium Total Bilirubin AST ALT Alkaline Phosphatase Troponin I Cancelled Total Protein Albumin Lipase Ethyl Alcohol ABO/Rh Antibody Screen Last Vital Signs Temp 36.5 C 08/04/24 16:12 Pulse 93 H 08/04/24 20:20 Resp 18 08/04/24 20:20 BP 139/73 08/04/24 20:16 Pulse Ox 94 08/04/24 20:20 PAWSS Have you Been Recently Intoxicated or Drunk Within the Last 30 days?: Yes Have you Ever Experienced Previous Episodes of Alcohol Withdrawal?: Yes Have you ever Experienced Withdrawal Seizures?: Yes Have you ever Experienced Delirium Tremens(DT)s?: Yes Have you ever undergone Alcohol Rehabilitation Treatment (i.e, inpt ot outpatient treatment programs)?: Yes Have you ever Experienced Blackouts?: Yes Have you ever Combined Alcohol with other Downers within the last 90 days?: Yes Have you ever Combined Alcohol with any other Substance of Abuse during the last 90 days?: No Positive Blood Alcohol level on Presentation? [PCS.BAL]: No Evidence of Increased Autonomic Activity (i.e. HR>120, tremor, sweating, agitation, nausea)?: No Result: 6 Time Spent Time spent with Patient: >75 minutes Time was spent: preparing to see the patient(eg.review tests), obtaining and/or reviewing separately [facility], ordering medications,tests, procedures, referring, communicating with other health hearing care professional, indepentently interpreting results, counseling the patient and care coordination
[2024-08-04] MEDS: Nicotine 21 MG/24 HR PATCH TD (21:40)
[2024-08-04] MEDS: traZODone 50 MG TAB 75 MG PO (21:42)
[2024-08-04] MEDS: Topiramate 50 MG TAB PO (21:43)
[2024-08-04] MEDS: Doxepin 25 MG CAP PO (21:44)
[2024-08-04] MEDS: Lactated Ringers 1,000 ML 1000 ML IV (21:46)
[2024-08-04] MEDS: Normal Saline Flush 10 ML SYR IVP ×2 (21:47→22:47)
[2024-08-04] MEDS: Pantoprazole 40 MG VIAL IVP (22:45)
[2024-08-04] MEDS: QUEtiapine 100 MG TAB 150 MG PO (22:46)
[2024-08-04] MEDS: POTASSIUM CHLORIDE/D5-0.45NACL 1,000 ML 125 MEQ IV (22:58)
[2024-08-05] VITALS (18 sets, daily range): BP systolic 112–142; BP diastolic 53–110; PULSE 77–121; RESP 14–37; TEMP 36–36.9; O2SAT 92–99; BMI 29.2
--- NOTE | 2024-08-05 05:42 | NUR.NOTE ---
Nursing Note: 0450 [Patient is getting out of bed bed alarm on. Patient strongly requested to completely turn off the bed alarm all the time.
[2024-08-05] MEDS: POTASSIUM CHLORIDE/D5-0.45NACL 1,000 ML 125 MEQ IV ×2 (06:42→18:51)
[2024-08-05 07:10] LABS: HCT 25.5 % (36.0-46.0); HGB 7.9 g/dL (11.2-15.7); MCH 27.7 pg (27.0-33.0); MCV 90 fL (80-95); MPV 10.6 fL (8.0-11.0); Platelet Count 310 10^3/uL (130-400); RBC 2.85 10^6/uL (3.93-5.22); WBC 4.09 10^3/uL (4.4-10.8)
[2024-08-05 07:33] LABS: Anion Gap 9.7 mmol/L (3-11); BUN 8 mg/dL (7-18); CO2 26.3 mmol/L (21.0-32.0); CREATININE 0.8 mg/dL (0.55-1.02); Calcium 8.1 mg/dL (8.5-10.1); Chloride 107 mmol/L (98-107); Estimated GFR 86.96 (mL/min/1.73m2); Glucose 108 mg/dL (74-106); Magnesium 2.1 mg/dL (1.8-2.4); Potassium 3.5 mmol/L (3.5-5.1); Sodium 143 mmol/L (136-145)
[2024-08-05 07:52] LABS: RDW 23.5 % (11.7-14.6)
[2024-08-05] MEDS: Ferrous Sulfate 325 MG TAB PO (08:04)
[2024-08-05] MEDS: Citalopram 20 MG TAB 40 MG PO (08:04)
[2024-08-05] MEDS: Doxepin 25 MG CAP PO ×2 (08:04→20:43)
[2024-08-05] MEDS: Lisinopril 20 MG TAB PO (08:04)
[2024-08-05] MEDS: Thiamine 100 MG TAB PO (08:04)
[2024-08-05] MEDS: Folic Acid 1 MG TAB PO (08:04)
[2024-08-05] MEDS: Multivitamin TAB 1 TAB PO (08:04)
[2024-08-05] MEDS: Budesonide/Formoterol 160/4.5 6 GM 60 PUFF INH IH ×2 (08:11→20:29)
[2024-08-05] MEDS: Tiotropium Bromide-Respimat 10 PUFF INH 2 PUFF IH (08:11)
--- NOTE | 2024-08-05 08:13 | ANES.PREOP_ITS ---
General Info Date of Service Date Performed: 08/05/24 Height: 5 ft 3.75 in Weight: 76.7 kg Body Mass Index (BMI): 29.2 Surgical Procedure: Operation Date: 08/05/24 09:05 Proposed Procedure Side Surgeon p Gastroscopy Hakeem Jang MD Meds Allergies and Home Medications Allergies Allergy/AdvReac Type Severity Reaction Status Date / Time hydromorphone (From Dilaudid) Allergy Severe Itching Verified 08/04/24 15:50 oxycodone AdvReac Unknown TERRIBLE Verified 08/04/24 15:50 DREAMS Home Medication ?Medication ?Instructions ?Recorded clobetasol-emollient 0.05 % 1 applic topical DAILY PRN #60 12/08/16 topical cream grams inhalational spacing device #1 ea 09/28/20 (POCKET CHAMBER spacer) nebulizers #1 ea 03/16/21 citalopram 40 mg tablet 40 mg PO DAILY #90 tabs 09/12 lisinopril 20 mg tablet 20 mg PO DAILY #90 tab-caps 11/27/23 tiotropium bromide 1.25 2 puff inhalation DAILY #4 g franky 11/27/23 mcg/actuation mist for inhalation (Spiriva Respimat) doxepin 25 mg capsule See Rx Instructions .Route 1 03/24/23 .COMPLEX #60 caps cyanocobalamin (vitamin B-12) 500 500 mcg PO DAILY #30 tabs 03/13/24 mcg tablet (Vitamin B-12) docusate sodium 100 mg capsule 100 mg PO BID #60 caps 03/13/24 (Colace) bisacodyl 10 mg rectal suppository 10 mg NM DAILY PRN constipation 03/22/24 lobger than 48 hours #12 ea polyethylene glycol 3350 17 17 g PO .Nightly #510 gram s 03/22/24 gram/dose oral powder (Miralax) quetiapine 100 mg tablet See Rx Instructions .Route 0 06/03/24 .COMPLEX #135 tabs Hand Held Nebulizer #1 ea 06/21/24 albuterol sulfate 90 mcg/actuation See Rx Instructions .Route 06/21/24 aerosol inhaler (Ventolin HFA) .COMPLEX #18 grams ferrous sulfate 325 mg (65 mg 325 mg PO DAILY #30 tabs 06/21/24 iron) tablet folic acid 1 mg tablet 1 mg PO DAILY #30 tabs 06/21 hydroxyzine HCl 25 mg tablet 25 mg PO TID PRN anxiety #180 tabs 06/21/24 trazodone 50 mg tablet See Rx Instructions .Route 0 07/01/24 .COMPLEX #135 tabs thiamine HCl (vitamin B1) 100 mg 100 mg PO DAILY 07/24 tablet budesonide-formoterol HFA 160 2 puff inhalation BID #1 inh 07/27/24 mcg-4.5 mcg/actuation aerosol inhaler (Symbicort) ipratropium 0.5 mg-albuterol 3 mg 3 ml UPD Q6H PRN Whe ezing #24 pkgs 07/27/24 (2.5 mg base)/3 mL nebulization soln multivitamin (Multiple Vitamins 1 tab PO DAILY #0 tabs 07/27/24 tablet) naltrexone 50 mg tablet 50 mg PO DAILY #30 tabs 09/13 pantoprazole 40 mg tablet,delayed 40 mg PO DAILY #30 t abs 07/27/24 release (Protonix) thiamine mononitrate (vit B1) 100 100 mg PO QAM #30 ta bs 07/27/24 mg tablet (Vitamin B-1 (mononitrate)) topiramate 50 mg tablet 50 mg PO HS #30 tabs 5 apixaban 5 mg (74 tabs) tablets in See Rx Instructions PO .COMPLEX 07/30/24 a dose pack ([employer] DVT-PE Treat #74 dose pk 30D Start) Current Visit Medications: Current Medications Generic Name Dose Route Start Last Admin Trade Name Freq PRN Reason Stop Dose Admin Albuterol Sulfate 2 puff 08/04/24 18:50 Albuterol Hfa 8 Gm 60 Puff Inh IH Q4H PRN PRN Albuterol/Ipratropium 3 ml 08/04/24 18:50 Albuterol/Ipratropium 3 Ml Upd Vial UPD Q6H PRN PRN Wheezing Bisacodyl 10 mg 08/04/24 18:50 Bisacodyl 10 Mg Supp NM DAILY PRN PRN constipation lobger than 48 hours Budesonide/Formoterol Fumarate 2 puff 08/04/24 20:00 08/05/24 08:11 Budesonide/Formoterol 160/4.5 6 Gm 60 Puff Inh IH 2 puffs BID SHASHANK Administration Citalopram Hydrobromide 40 mg 08/05/24 08:30 08/05/24 08:04 Citalopram 20 Mg Tab PO 40 mg DAILY SHASHANK Administration Docusate Sodium 100 mg 08/04/24 20:00 08/05/24 08:05 Docusate Sodium 100 Mg Cap PO Not Given BID SHASHANK Doxepin HCl 25 mg 08/04/24 20:00 08/05/24 08:04 Doxepin 25 Mg Cap PO 25 mg BID SHASHANK Administration Ferrous Sulfate 325 mg 08/05/24 08:30 08/05/24 08:04 Ferrous Sulfate 325 Mg Tab PO 325 mg DAILY SHASHANK Administration Folic Acid 1 mg 08/05/24 08:30 08/05/24 08:04 Folic Acid 1 Mg Tab PO 1 mg DAILY SHASHANK Administration Hydroxyzine HCl 25 mg 08/04/24 18:50 Hydroxyzine Hcl 25 Mg Tab PO TID PRN PRN Anxiety Potassium Chloride/Sodium Chloride 1,000 mls @ 125 mls/hr 08/04/24 22:00 08/05/24 06:42 Kcl 20meq/D5-0.45% Nacl IV 125 mls/hr INFUSION SHASHANK Administration IV Miscellaneous Supplies 1 each 08/04/24 16:00 Iv Access-Emergency Dept IV DIRECTED [facility] Iohexol 100 ml 08/04/24 16:30 08/04/24 16:20 Omnipaque 350 Mg/Ml 100 Ml Btl IJ 09/03/24 23:59 75 ml DIRECTED SHASHANK Administration Lisinopril 20 mg 08/05/24 08:30 08/05/24 08:04 Lisinopril 20 Mg Tab PO 20 mg DAILY SHASHANK Administration Multivitamins 1 tab 08/05/24 08:30 08/05/24 08:04 Multivitamin Tab PO 1 tab DAILY SHASHANK Administration Nicotine 21 mg 08/04/24 20:56 08/04/24 21:40 Nicotine 21 Mg/24 Hr Patch TD 21 mg DAILY PRN PRN Administration Non-Formulary Medication 1 applic 08/04/24 18:50 Clobetasol-Emollient TP DAILY PRN Pantoprazole Sodium 40 mg 08/04/24 22:00 08/04/24 22:45 Pantoprazole 40 Mg Vial IVP 40 mg Q12H SHASHANK Administration Quetiapine Fumarate 150 mg 08/04/24 22:30 08/04/24 22:46 Quetiapine 100 Mg Tab PO 150 mg HS SHASHANK Administration Sodium Chloride 0 ml 08/04/24 15:48 08/04/24 22:47 Normal Saline Flush 10 Ml Syr IVP 10 ml PRN PRN Administration Sodium Chloride 0 ml 08/04/24 20:00 08/04/24 21:47 Normal Saline Flush 10 Ml Syr IVP 10 ml BID SHASHANK Administration Sodium Chloride 0 ml 08/04/24 15:48 Normal Saline 10 Ml Vial IJ DIRECTED PRN Sodium Chloride 50 ml 08/04/24 16:30 08/04/24 16:21 Normal Saline - Diluent 50 Ml Vial IJ 50 ml .FOR DI USE SHASHANK Administration Thiamine HCl 100 mg 08/05/24 08:30 08/05/24 08:04 Thiamine 100 Mg Tab PO 100 mg QAM SHASHANK Administration Tiotropium [place] 2 puff 08/05/24 08:30 08/05/24 08:11 Tiotropium [place]-Respimat 10 Puff Inh IH 2 puffs DAILY SHASHANK Administration Topiramate 50 mg 08/04/24 20:00 08/04/24 21:43 Topiramate 50 Mg Tab PO 50 mg HS SHASHANK Administration Trazodone HCl 75 mg 08/04/24 19:00 08/04/24 21:42 Trazodone 50 Mg Tab PO 75 mg HS PRN PRN Administration PFSH Active Problems Active Problems: Problem Status Onset Code Hypomagnesemia Acute E83.42 Increased anion gap metabolic acidosis Acute E87.29 Hematemesis Acute K92.0 Alcohol use disorder Acute F10.90 CKD (chronic kidney disease) Chronic N18.9 Pulmonary embolus Acute I26.99 Anemia Chronic D64.9 Depression with anxiety Chronic F41.8 Encounter for medical clearance for patient hold Acute Z00.8 Abdominal fluid collection Acute R18.8 Dyslipidemia Acute E78.5 Hyperglycemia Acute R73.9 Hypertension Chronic I10 Acute hypoxemic respiratory failure Acute J96.01 Acute on chronic blood loss anemia Acute D62 COPD with hypoxia Chronic J44.9 Fracture of rib of left side Acute S22.32XA Abdominal pain, chronic, left upper quadrant Acute R10.12, G89.29 Acute exacerbation of chronic obstructive pulmonary disease (COPD) Acute J44.1 Alcohol intoxication in active alcoholic Acute F10.129 Alcoholic gastritis without bleeding Acute K29.20 Chronic upper gastrointestinal bleeding Acute K92.2 Cyst and pseudocyst of pancreas Acute K86.2, K86.3 Heavy menses Acute N92.0 Encounter for screening colonoscopy Acute Z12.11 Anemia Chronic D64.9 Anxiety Chronic F41.9 DUB (dysfunctional uterine bleeding) Acute N93.8 Impaired fasting blood sugar Acute 08/01/05 R73.01 Obesity, unspecified Acute 05/31/11 E66.9 Atypical squamous cells of undetermined significance (ASC-US) on cervical Pap smear Acute 08/05/09 R87.610 Spinal stenosis of lumbar region Acute 01/11/10 M48.061 Tobacco dependence Acute 08/01/05 F17.200 Medical History Medical History DVT prophylaxis COPD (chronic obstructive pulmonary disease) Alcohol use disorder Anemia HTN (hypertension), benign Chronic pain (02/20/09) chronic tramadol rx, back pain, sciatica despite LS surg 2009. Depression (04/03/15) Sertaline in the past with good relief of sx but then developed intolerable adverse rxns (nausea, flushing) Started on venlafaxine 03/2015 PHQ9 score = 9, indicating mild depression 03/2015 Spinal stenosis Lumbar region Surgical History Surgical History Internal injury, spleen, closed with IR embolization Back surgery L5-S1 decompression 2009 Tobacco Smoking/Tobacco Use Status: Current every day Tobacco Type: cigarettes Alcohol Alcohol Intake: current Alcohol intake frequency: 3 or more drinks per day Alcohol type: beer and hard liquor Substance Use Substance use: Never Substance use type: does not use Vital Signs and Lab Results Vital Signs Most Recent Vital Signs in EMR: Most Recent Vital Signs Temp Pulse Resp BP Pulse Ox 36.0 C L 81 14 142/94 H 93 08/05/24 07:43 08/05/24 07:43 08/05/24 07:43 08/05/24 07:55 08/05/24 07:43 Lab Results 08/05/24 06:20 08/05/24 06:20 Blood Type / Crossmatch: 2 Antibody Screen NEGATIVE 08/04/24 Crossmatch See Detail 07/28/24 Complete Blood Count: 2 WBC, (4.4-10.8) 4.09 10^3/uL L Today, 06:20 RBC, (3.93-5.22) 2.85 10^6/uL L Today, 06:20 Hgb, (11.2-15.7) 7.9 g/dL L Today, 06:20 Hct, (36.0-46.0) 25.5 % L Today, 06:20 Plt Count, (130-400) 310 10^3/uL Today, 06:20 Complete Metabolic Panel: 2 Sodium, (136-145) 143 mmol/L Today, 06:20 Potassium, (3.5-5.1) 3.5 mmol/L Today, 06:20 Chloride, (98-107) 107 mmol/L Today, 06:20 Carbon Dioxide, (21.0-32.0) 26.3 mmol/L Today, 06:20 BUN, (7-18) 8 mg/dL Today, 06:20 Creatinine, (0.55-1.02) 0.8 mg/dL Today, 06:20 Est GFR (CKD-EPI 2020), (mL/min/1.73m2) 86.96 Today, 06:20 Magnesium, (1.8-2.4) 2.1 mg/dL Today, 06:20 Calcium, (8.5-10.1) 8.1 mg/dL L Today, 06:20 Albumin, (3.4-5.0) 3.3 g/dL L 08/04/24, 15:30 Glucose, (74-106) 108 mg/dL H Today, 06:20 Liver Function Panel: 2 ALT, (14-59) 26 U/L 08/04/24, 15:30 AST, (15-37) 19 U/L 08/04/24, 15:30 Coagulation Panel: 2 INR, (0.9-1.1) 1.1 08/04/24, 15:30 PT, (9.1-11.1) 10.6 sec 08/04/24, 15:30 APTT, (20.6-30.2) 38.5 sec H 07/30/24, 06:55 Cardiac Panel: 2 Troponin I, (<or=51) 14 ng/L 08/04/24 NT-Pro-B Natriuret Pep, (<300) 1240 pg/mL H 07/28/24 Venous Blood Gas: 2 VBG pH, (7.31-7.41) 7.38 07/22/24, 18:30 VBG pO2 37 mmHg 07/22/24, 18:30 VBG pCO2, (41-51) 42 mmHg 07/22/24, 18:30 VBG O2 Saturation 63 % 07/22/24, 18:30 VBG HCO3, (23-28) 24 mmol/L 07/22/24, 18:30 VBG Base Excess, (-2-3) -1 mmol/L 07/22/24, 18:30 VBG Total CO2, (24-29) 24 mmol/L 07/22/24, 18:30 Pancreas Panel: 2 Lipase, (<78) 28 U/L 08/04/24, 15:30 Infectious Disease: 2 SARS-CoV-2 (PCR), (Negative) Negative 07/29/24, 0 0:30 COVID-19 Source Nasopharynx 07/29/24, 00:30 Influenza Type A (PCR), (Negative) Negative 07/29, 00:30 Influenza Type B (PCR), (Negative) Negative 07/29, 00:30 RSV (PCR), (Negative) Negative 07/29/24, 00:30 Toxicology Panel: 2 Ethyl Alcohol, (<10) 252.3 mg/dL H 08/04/24, 15:30 Ur Amphetamines Screen, (Negative) Negative 07/29, 07:57 U Benzodiazepines Scrn, (Negative) Negative 07/29, 07:57 Ur Barbiturates Screen, (Negative) Positive A 07/29, 07:57 Urine Cocaine Screen, (Negative) Negative 5, 07:57 Urine Methadone Screen, (Negative) Negative 07/29, 07:57 Urine Opiates Screen, (Negative) Negative 5, 07:57 Ur Tricyclics Screen, (Negative) Negative 5, 07:57 Ur THC Screen, (Negative) Negative 07/29/24, 07:5 7 Imaging and Studies Imaging and Studies Study information below may be from another EMR and interpreted by another provider. Please see original notes in EMR for more complete details. EKG Summary: 08/04/24: Exam: Resting ECG Reason for Exam: SOB Patient Location: E HR:97 bpm ECG Measurements Heart Rate 97 AXIS NM 157 P 54 QRSd 98 QRS 55 QT 369 T40 QTc 470 Conclusion Sinus rhythm, rate 97 No interval abnormalities No STEMI No significant changes from priors Echocardiogram Summary: 07/28/2024: LVEF 60%, RV not well seen, trace tricuspid regurgitation CT Summary: 08/04/24: Chest/Abdomen/Pelvis CTA: IMPRESSION: 1. There is no significant intraluminal extravasation of injected IV contrast to identify a source site of GI bleeding. 2. No evidence of bowel obstruction, free air, nor ischemic appearing bowel loops. 3. There is a tract of fluid extending from the pancreatic tail towards the spleen and to the undersurface of the left hemidiaphragm, similar to previous and there is also heterogeneous appearance and enhancement of the spleen and small subcapsular hematoma in the spleen again noted. These findings are unchanged from recent studies and may be posttrauma related and indirectly related to the multiple left-sided rib fractures. The remainder of the pancreas appears unremarkable. 4. The previously present pulmonary emboli in the subsegmental bilateral lower lobe pulmonary arteries seen on this study of July 28, 2024 are not seen on today's study. These have most probably resolved. There are no new intraluminal filling defects. No evidence of pulmonary infarction, infiltrates, nor pleural effusions. 5.. The previously described fractures of the left 8th, 9th, 10th, and 11th ribs appear unchanged. 6. Appears unremarkable with no aneurysms and no evidence of dissection nor prominent atherosclerotic disease. Anesthesia Assessment and Plan Anesthesia History Personal History: No History of Anesthesia Complications Family History: No Family History of Anesthesia Complications Exercise Tolerance Exercise Tolerance: Metabolic Equivalents>4 Pertinent Negatives Pertinent Negatives: No Major Cardiovascular Symptoms or Complaints Cardiac & Pulmonary Exam Cardiac Exam: Normal S1/S2 Heart Sounds Pulmonary Exam: Wheezing Present (Nebulizer administered) Implantable Cardiac Device Does patient have a Pacemaker or an ICD?: No Airway Exam Known Difficult Airway: No Mallampati Class: 2 Mouth Opening: Normal (> 3cm) Thyromental Distance: Greater than 3 cm Neck Range of Motion: Full ROM Neck Circumference: Normal Teeth Condition: Normal Dentition ASA Classification ASA Score: ASA 4 Emergency Case?: Yes NPO Status NPO Status: NPO Clears >2 hours, Solids >8 hours Anesthesia Plan Resuscitation Status: Full Code Anesthesia Technique: General Anesthesia Airway Planned: Endotracheal Tube (RSI) Monitors Used: Standard Monitors
--- NOTE | 2024-08-05 08:47 | INITIAL_ITS ---
Date of service: 08/05/24 Time of Service: 08:47 Care Management Initial Assmt Initial Assessment Reason for Hospitalization: UGI Bleed Functional Status/Living Situation Patient Presentation: Adrianne was sitting up in bed when CM met with her. She had just come back from her endoscopy and was still a bit sleepy. CM let her rest and returned a while later. At that time was more awake and able to engage more fully with CM, well known to her from her recent admissions. Adrianne was admitted with another GI bleed. She had just been discharged on Monday following a brief hospitalization for a PE. She was started on Apixaban and presented yesterday with anemia after vomiting a large amount of blood with big clots. Initially her Hgb was 9.0, similar to when she was discharged but then dropped to 7.9 this morning, necessitating the EGD. Adrianne admitted to being scared when she vomited the blood and knows that the drinking is hurting her. She verbalized maybe wanting to stop but informed CM that inpatient rehab doesn't work for her. CM asked about a refinery operator light ends recovery and Adrianne is considering it. Town of Residence: [facility] (homeless) Resides with: Alone Significant Other/Family: Local (Has son and daughter. Estranged from son and rarely sees daughter) Natural Supports: friends Employment Status: Unemployed Instrumental Activities of Daily Living (ADLs): Independent Medications Medication Management: No Issues/Barriers identified Physical Functioning/Mobility Assistive Device: none Advance Directives Advance Directives: Do you have an Advance Directive: N 14, 09:[address] [facility]: N 08/08/13, 09:23 Date Asked 08/04/24 Today, 08:51 AD Date Reviewed COLST On File at [facility] COLST Date Scanned Code Status Resuscitation Status Full Code Portal Pt does not currently have a portal and education provided: No Portal Education: Patient declined (no access to internet) Insurance Coverage/Financial Issues Insurance: Medicaid Care Team Visit Care Team Role Provider Type Albina Naqvi APRN MD [facility] STAFF PHYSICIAN Paula Barboza, MARILYN Primary Care Provider NURSE PRACTITIONER Laura Muniz MD Other Providers NON-[facility] STAFF PHYSICIAN PIPPA Mccrary Other Providers PHYSICIANS ASSISTANT [facility] Other Providers [facility] STAFF PHYSICIAN Carlos Mcdaniels [facility] Other Providers NON-[facility] STAFF PHYSICIAN Elio Dunbar, DO Other Providers CONSULTING PHYSICIAN Hakeem Jang MD Other Providers [facility] STAFF PHYSICIAN Kane Arellano MD Other Providers [facility] STAFF PHYSICIAN Mitzy Paul MD Other Providers [facility] STAFF PHYSICIAN Aubrie Molina, DO Other Providers CONSULTING PHYSICIAN Roberto Hooper MD Other Providers CONSULTING PHYSICIAN Tonny Lemus MD Other Providers [facility] STAFF PHYSICIAN Katiana Ann, DO Other Providers OSTEOPATHIC DOCTOR Shirley Marquez MD Emergency Provider [facility] STAFF PHYSICIAN Slava Garcia Admit Provider [facility] STAFF PHYSICIAN Attending Provider Discharge Potential Discharge Needs: PCP F/U Appt Anticipated Barriers to Discharge: None Identified Patient/Family Education Needs: Review discharge instructions, discuss Ask Me Three Transportation: RCT Plan: Anticipate Adrianne will be discharged back intro the community when medically cleared. She will follow up with her PCP and plan of care and transport via RCT. CM will follow and continue to support discharge planning. Social Determinants of Health Screening Social Determinants of health last assessed in clinic: 08/05/24 Will the Patient Participate in the Screening?: Yes Do you worry about having a steady place to live?: no Problems where you live: other In the past 12 months, have you had to go without electric, gas, oil or water in your home?: yes 1. Within the past 12 months, we worried whether our food would run out before we got money to buy more.: Sometimes true 2. Within the past 12 months, the food we bought just didn't last and we didn't have money to get more.: Sometimes true Has lack of transportation kept you from medical appointments or from doing things needed for daily living?: no Has anyone in your life made you feel unsafe or unsupported?: no How hard is it for you to pay for the very basics like food, housing, medical care, and heating? Would you say it is:: Somewhat hard Do you want help finding or keeping work or a job?: I do not need or want help If for any reason you need help with day-to-day activities such as bathing, preparing meals, shopping, managing finances, etc., do you get the help you need?: I get all the help I need How often do you feel lonely or isolated from those around you?: Often Do you speak a language other than [place] at home?: No Does the patient want assistance with any of the above?: No Health Related Social Needs Health related social needs: inadequate housing (Z59.1), food insecurity (Z59.41), material hardship(utilities) (Z59.12), problems related to housing/economic circumstances (Z59.89) and feeling lonely/isolated (Z60.8) Health related social needs details: Patient has been living in her car for about 3 weeks now and feeling lonely. PFSH All Active Problems (Updated 08/05/24 @ 12:19 by Albina Naqvi APRN) Helicobacter pylori (H. pylori) (Acute) Blood loss anemia (Acute) Hypomagnesemia (Acute) Increased anion gap metabolic acidosis (Acute) Hematemesis (Acute) Alcohol use disorder (Acute) CKD (chronic kidney disease) (Chronic) Pulmonary embolus (Acute) Anemia (Chronic) Depression with anxiety (Chronic) Encounter for medical clearance for patient hold (Acute) Abdominal fluid collection (Acute) Dyslipidemia (Acute) Hyperglycemia (Acute) Hypertension (Chronic) Acute hypoxemic respiratory failure (Acute) Acute on chronic blood loss anemia (Acute) COPD with hypoxia (Chronic) Fracture of rib of left side (Acute) Abdominal pain, chronic, left upper quadrant (Acute) Acute exacerbation of chronic obstructive pulmonary disease (COPD) (Acute) Alcohol intoxication in active alcoholic (Acute) Alcoholic gastritis without bleeding (Acute) Chronic upper gastrointestinal bleeding (Acute) Cyst and pseudocyst of pancreas (Acute) Heavy menses (Acute) Encounter for screening colonoscopy (Acute) Anemia (Chronic) Anxiety (Chronic) DUB (dysfunctional uterine bleeding) (Acute) Impaired fasting blood sugar (Acute 08/01/05) Obesity, unspecified (Acute 05/31/11) Atypical squamous cells of undetermined significance (ASC-US) on cervical Pap smear (Acute 08/05/09) ASCUS 08/05/09; 05/31/2011 Spinal stenosis of lumbar region (Acute 01/11/10) LS spine surg; Dr Sebastian Walker Tobacco dependence (Acute 08/01/05) Medical History DVT prophylaxis COPD (chronic obstructive pulmonary disease) Alcohol use disorder Anemia HTN (hypertension), benign Chronic pain (02/20/09) chronic tramadol rx, back pain, sciatica despite LS surg 2009. Depression (04/03/15) Sertaline in the past with good relief of sx but then developed intolerable adverse rxns (nausea, flushing) Started on venlafaxine 03/2015 PHQ9 score = 9, indicating mild depression 03/2015 Spinal stenosis Lumbar region Surgical History Internal injury, spleen, closed with IR embolization Back surgery L5-S1 decompression 2009 Family History Mother , lung cancer at age 50. No problems noted. Father , MVA No problems noted. Other Lung cancer Social History Smoking/Tobacco Use Status: Current every day Tobacco Type: cigarettes Smoking risk assessment performed?: Yes Alcohol Intake: current Alcohol Intake frequency: 3 or more drinks per day Alcohol type: beer and hard liquor Drug use: Never Substance use type: does not use Housing: other Do you feel safe at home: Yes Do you feel safe in your relationship?: Yes
--- NOTE | 2024-08-05 09:03 | PGE_ITS ---
Date of Service Date of service: 08/05/24 Time of Service: 09:03 Assessment and Plan Assessment and plan (1) Hematemesis: Status: Acute Assessment and plan: High risk with regular alcohol use and recent PE treated with apixaban She has been off the blood thinner x 2 days so no need for reversal. No h/o cirrhosis, her current labs with high normal platelets and her imaging are not consistent with cirrhosis or portal HTN, no indication for antibiotics or somatostatin. Hemodynamically stable, h/h haven't dropped since recent admission. Okay for floor. surgical consult : - Endoscopy on 08/05 - Some reflux esophagitis that was noted at the Z-line; some antral gastritis which was noted; biopsies sent. No ulcer , no bleeding (2) Blood loss anemia: Status: Acute Assessment and plan: H&H 7.9&25.5 from 9 & 29 H%H at 18:00 and as above (3) Helicobacter pylori (H. pylori): Status: Acute Assessment and plan: Antigen positive in stool on 07/23/24 -Will initiate treatment - With tetracycline, flagyl, bismuth and PPI x 14 days Not treated prior (4) Pulmonary embolus: Status: Acute Assessment and plan: Hold apixaban H&H pending non-tender, Resume after endoscopy if we are able to identify and treat source VS stable H&H (5) Alcohol intoxication in active alcoholic: Status: Acute Assessment and plan: 24 hour relapse at levels that are low for her not appear to be in withdrawal, continue to l monitor. (6) Alcohol use disorder: Status: Acute Assessment and plan: Ongoing topiramate, naltrexone after her procedure. Ecourage f/u with therapist and meetings prior to discharge. Continue to engage community resources as patient leaves in her car (7) Tobacco dependence: Status: Acute Assessment and plan: NRT daily (8) Hypertension: Status: Chronic Assessment and plan: BP stable , on lisinpopril (9) Depression with anxiety: Status: Chronic Assessment and plan: Ongoing e outpatient therapy. (10) CKD (chronic kidney disease): Status: Chronic Assessment and plan: Cr normal/below baseline stable at 0.8 BMp in am (11) Increased anion gap metabolic acidosis: Status: Acute Assessment and plan: Resolved on oral fluids (12) Hypomagnesemia: Status: Acute Assessment and plan: resolved Mg level in AM (13) COPD (chronic obstructive pulmonary disease): Assessment and plan: No exacerbation continue inhalers. (14) DVT prophylaxis: Assessment and plan: mechanical given UGI bleed discussed with Dr. Gregg Subjective Subjective Patient reports: no new complaints, feels better, tolerating liquids well, tolerating a regular diet, voiding w/o difficulty, bowel movement and diarrhea; denies nausea, vomiting, shortness of breath or fever Exam Narrative Exam Narrative: Constitutional The patient is comfortable and without acute distress Neuro:alert and oriented to self, person, place time and situation. No neurological focal deficit, Resp: Normal respiratory pattern, speaks in full sentences, unlabored breathing, clear lung bilaterally Cardio: regular rhythm, S1, S2, no murmur, GI: non-distended , soft and no tender Extremities: strength 5/5 to bilateral lower and upper extremities Psych: RASS 0, congruent mood and normal affect. Objective Last Vital Signs Temp 36.0 C L 08/05/24 07:43 Pulse 81 08/05/24 07:43 Resp 14 08/05/24 07:43 BP 142/94 H 08/05/24 07:55 Pulse Ox 93 08/05/24 07:43 Laboratory Results - last 24 hr 08/04/24 08/04/24 08/04/24 15:30 16:07 17:20 WBC 8.56 RBC 3.34 L Hgb 9.0 L Hct 29.2 L MCV 87 MCH 26.9 L MCHC 30.8 L RDW 22.5 H Plt Count 400 MPV 10.1 Immature Gran % 0.4 Neutrophils % 72.8 Lymphocytes % 17.3 Monocytes % 7.7 Eosinophils % 0.7 Basophils % 1.1 Nucleated RBC % 0.0 Absolute Neutrophils 6.24 Absolute Lymphocytes 1.48 Absolute Monocytes 0.66 Absolute Eosinophils 0.06 Absolute Basophils 0.09 RBC Morphology See Below Anisocytosis 2+ PT 10.6 INR 1.1 Sodium 141 Potassium 3.5 Chloride 103 Carbon Dioxide 20.8 L Anion Gap 17.2 H BUN 11 Creatinine 0.8 Est GFR (CKD-EPI 2020) 86.96 Glucose 94 Calcium 8.4 L Magnesium 1.6 L Total Bilirubin 0.4 AST 19 ALT 26 Alkaline Phosphatase 81 Troponin I 18 14 Total Protein 7.1 Albumin 3.3 L Lipase 28 Ethyl Alcohol 252.3 H ABO/Rh A Positive Antibody Screen NEGATIVE 08/04/24 08/05/24 18:49 06:20 WBC 4.09 L RBC 2.85 L Hgb 7.9 L Hct 25.5 L MCV 90 MCH 27.7 MCHC 31.0 L RDW 23.5 H Plt Count 310 MPV 10.6 Immature Gran % Neutrophils % Lymphocytes % Monocytes % Eosinophils % Basophils % Nucleated RBC % Absolute Neutrophils Absolute Lymphocytes Absolute Monocytes Absolute Eosinophils Absolute Basophils RBC Morphology Anisocytosis PT INR Sodium 143 Potassium 3.5 Chloride 107 Carbon Dioxide 26.3 Anion Gap 9.7 BUN 8 Creatinine 0.8 Est GFR (CKD-EPI 2020) 86.96 Glucose 108 H Calcium 8.1 L Magnesium 2.1 Total Bilirubin AST ALT Alkaline Phosphatase Troponin I Cancelled Total Protein Albumin Lipase Ethyl Alcohol ABO/Rh Antibody Screen PAWSS Have you Been Recently Intoxicated or Drunk Within the Last 30 days?: No Have you Ever Experienced Previous Episodes of Alcohol Withdrawal?: Yes Have you ever Experienced Withdrawal Seizures?: No Have you ever Experienced Delirium Tremens(DT)s?: Yes Have you ever undergone Alcohol Rehabilitation Treatment (i.e, inpt ot outpatient treatment programs)?: Yes Have you ever Experienced Blackouts?: No Have you ever Combined Alcohol with other Downers within the last 90 days?: No Have you ever Combined Alcohol with any other Substance of Abuse during the last 90 days?: No Positive Blood Alcohol level on Presentation? [PCS.BAL]: No Evidence of Increased Autonomic Activity (i.e. HR>120, tremor, sweating, agitation, nausea)?: No Result: 3 Time Spent with Patient Time Spent with Patient: >50 minutes Time was spent: preparing to see the patient(eg.review tests), obtaining and/or reviewing separately otained hiistory, ordering medications,tests, procedures, referring, communicating with other health health care marketing manager, indepentently interpreting results, counseling the patient and care coordination
--- NOTE | 2024-08-05 09:49 | SCONE_ITS ---
Date of service: 08/04/24 Time of Service: 20:30 Assessment and Plan Assessment and plan (1) Pulmonary embolus: Status: Acute Assessment and plan: Patient with recent pulmonary embolus, she was on Eliquis, has not taken this for 48 hours now, at time of this examination (08/04/2024). CT angio showing improvement of previously visualized pulmonary emboli. Hold Eliquis. Her INR is acceptable. Previous PTT values were elevated. (2) Hematemesis: Status: Acute Assessment and plan: Reviewed patient's a CT scan as above, there is some thickening in the cardiac region of the stomach and fundus. Patient does have an occluded splenic vein. There are no grossly visualized varices on the CTA. Plan for an endoscopy and today, with possible biopsy. Limited blood is available at this facility. Patient will require intubation for procedure, did discuss with her the risks and expected outcomes of the procedure. On last visit she was positive on stool antigen for H. pylori. Plan to initiate empiric antibiotic therapy for this following endoscopy. (3) Alcohol intoxication in active alcoholic: Status: Acute Assessment and plan: She is a chronic alcoholic, came in with alcohol levels above 200, also a smoker. Certainly is at risk for gastric ulcer development. Counseled her about alcohol cessation. (4) COPD with hypoxia: Status: Chronic Assessment and plan: History of COPD as above, and longtime smoker, she will require intubation for procedure. History of Present Illness History of Present Illness Chief Complaint: Hematemesis Narrative: Patient is a 53-year-old female, she has multiple medical conditions, as detailed below, she is a chronic alcoholic, drinks heavily every day, today (08/04/2024), she drank a large amount of vodka, she had some epigastric discomfort, and then vomited large clots of blood. This was certainly concerning to her, prompted presentation to the emergency department here at this facility, [facility]. She reports no history of hematemesis in the past, she has had melena for the past 2 years at least. She has never undergone colonoscopy nor endoscopy. Her current living situation is tenuous, she lives in her car. She is smoked for over 40 years, about a pack per day. She does report shortness of breath at baseline. Review of Systems Narrative: General, overall poor state of health, as described below. CV, history of pulmonary embolus treated a few weeks ago, she was given Eliquis, she took her last dose of this 48 hours ago. Respiratory, history of COPD, she is not on oxygen, does have chronic cough, and shortness of breath at baseline. GI, HPI are as above. , negative. Musculoskeletal, history of traumatic rib fractures to the left chest, with subsequent splenic embolization. Neuro, negative. Psych, history of depression with anxiety. Endocrine negative. Skin negative. PFSH All Active Problems (Updated 08/04/24 @ 21:02 by Slvaa Garcia) Hypomagnesemia (Acute) Increased anion gap metabolic acidosis (Acute) Hematemesis (Acute) Alcohol use disorder (Acute) CKD (chronic kidney disease) (Chronic) Pulmonary embolus (Acute) Anemia (Chronic) Depression with anxiety (Chronic) Encounter for medical clearance for patient hold (Acute) Abdominal fluid collection (Acute) Dyslipidemia (Acute) Hyperglycemia (Acute) Hypertension (Chronic) Acute hypoxemic respiratory failure (Acute) Acute on chronic blood loss anemia (Acute) COPD with hypoxia (Chronic) Fracture of rib of left side (Acute) Abdominal pain, chronic, left upper quadrant (Acute) Acute exacerbation of chronic obstructive pulmonary disease (COPD) (Acute) Alcohol intoxication in active alcoholic (Acute) Alcoholic gastritis without bleeding (Acute) Chronic upper gastrointestinal bleeding (Acute) Cyst and pseudocyst of pancreas (Acute) Heavy menses (Acute) Encounter for screening colonoscopy (Acute) Anemia (Chronic) Anxiety (Chronic) DUB (dysfunctional uterine bleeding) (Acute) Impaired fasting blood sugar (Acute 08/01/05) Obesity, unspecified (Acute 05/31/11) Atypical squamous cells of undetermined significance (ASC-US) on cervical Pap smear (Acute 08/05/09) ASCUS 08/05/09; 05/31/2011 Spinal stenosis of lumbar region (Acute 01/11/10) LS spine surg; Dr Sebastian Walker Tobacco dependence (Acute 08/01/05) Medical History DVT prophylaxis COPD (chronic obstructive pulmonary disease) Alcohol use disorder Anemia HTN (hypertension), benign Chronic pain (02/20/09) chronic tramadol rx, back pain, sciatica despite LS surg 2009. Depression (04/03/15) Sertaline in the past with good relief of sx but then developed intolerable adverse rxns (nausea, flushing) Started on venlafaxine 03/2015 PHQ9 score = 9, indicating mild depression 03/2015 Spinal stenosis Lumbar region Surgical History Internal injury, spleen, closed with IR embolization Back surgery L5-S1 decompression 2009 Family History Mother , lung cancer at age 50. No problems noted. Father , MVA No problems noted. Other Lung cancer Social History Smoking/Tobacco Use Status: Current every day Tobacco Type: cigarettes Smoking risk assessment performed?: Yes Alcohol Intake: current Alcohol Intake frequency: 3 or more drinks per day Alcohol type: beer and hard liquor Drug use: Never Substance use type: does not use Housing: other Do you feel safe at home: Yes Do you feel safe in your relationship?: Yes Exam Narrative Exam Narrative: Patient is a pleasant adult female, she does appear older than stated age. 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 Vital signs are acceptable. Her pulse rate on admission 92, she is not on beta-kiesha. Her cardiac exam is regular rate and rhythm without gross murmur. Her pulmonary exam elicits coarse breath sounds bilaterally, at lung bases. Her abdomen has prior right subcostal surgical scar from rib excision as an adolescent. Her abdomen is otherwise without surgical scars, soft, nontender and nondistended. Results Last Vital Signs Temp 36.0 C L 08/05/24 07:43 Pulse 81 08/05/24 07:43 Resp 14 08/05/24 07:43 BP 142/94 H 08/05/24 07:55 Pulse Ox 93 08/05/24 07:43 Labs 08/05/24 06:20 08/05/24 06:20 Labs: Laboratory Results - last 24 hr 08/04/24 08/04/24 08/04/24 15:30 16:07 17:20 WBC 8.56 RBC 3.34 L Hgb 9.0 L Hct 29.2 L MCV 87 MCH 26.9 L MCHC 30.8 L RDW 22.5 H Plt Count 400 MPV 10.1 Immature Gran % 0.4 Neutrophils % 72.8 Lymphocytes % 17.3 Monocytes % 7.7 Eosinophils % 0.7 Basophils % 1.1 Nucleated RBC % 0.0 Absolute Neutrophils 6.24 Absolute Lymphocytes 1.48 Absolute Monocytes 0.66 Absolute Eosinophils 0.06 Absolute Basophils 0.09 RBC Morphology See Below Anisocytosis 2+ PT 10.6 INR 1.1 Sodium 141 Potassium 3.5 Chloride 103 Carbon Dioxide 20.8 L Anion Gap 17.2 H BUN 11 Creatinine 0.8 Est GFR (CKD-EPI 2020) 86.96 Glucose 94 Calcium 8.4 L Magnesium 1.6 L Total Bilirubin 0.4 AST 19 ALT 26 Alkaline Phosphatase 81 Troponin I 18 14 Total Protein 7.1 Albumin 3.3 L Lipase 28 Ethyl Alcohol 252.3 H ABO/Rh A Positive Antibody Screen NEGATIVE 08/04/24 08/05/24 18:49 06:20 WBC 4.09 L RBC 2.85 L Hgb 7.9 L Hct 25.5 L MCV 90 MCH 27.7 MCHC 31.0 L RDW 23.5 H Plt Count 310 MPV 10.6 Immature Gran % Neutrophils % Lymphocytes % Monocytes % Eosinophils % Basophils % Nucleated RBC % Absolute Neutrophils Absolute Lymphocytes Absolute Monocytes Absolute Eosinophils Absolute Basophils RBC Morphology Anisocytosis PT INR Sodium 143 Potassium 3.5 Chloride 107 Carbon Dioxide 26.3 Anion Gap 9.7 BUN 8 Creatinine 0.8 Est GFR (CKD-EPI 2020) 86.96 Glucose 108 H Calcium 8.1 L Magnesium 2.1 Total Bilirubin AST ALT Alkaline Phosphatase Troponin I Cancelled Total Protein Albumin Lipase Ethyl Alcohol ABO/Rh Antibody Screen Imaging Abdomen CT scan report/results: report reviewed, image reviewed and other (Reviewed patient's CT scan, this was a CTA of the chest abdomen and pelvis. There are some changes that can be seen around the spleen, also some fluid along the body of the pancreas, which appears chronic. The splenic vein is not patent. The pulmonary embolus has resolved from previous image.)
[2024-08-05] MEDS: Lactated Ringers 1,000 ML 30 ML IV (10:20)
--- NOTE | 2024-08-05 10:29 | W.ANESVAS ---
Midline Placement Date Performed: 08/05/24 Procedure Time: 10:20 Requesting Provider: Miriam Leonard Procedure Location: PACU Sedation Given (Indicate Dose Given): No Sedation given Patient Mental Status: Awake Sterility: Hand Hygiene, Surgical Cap, Surgical Mask, Sterile Gloves, Sterile Drape/Sheet and Chlorhexidine Laterality: Left Insertion Site: Brachial Midline Device: PowerGlide Pro 20G Catheter Length: 10 cm Midline Procedure Procedure: 1% Lidocaine to skin and subcutaneous tissue with 25g needle Dressing: Tegaderm Applied and Statlock Applied Blood Return: Present Flushes: Easily Ultrasound: Sterile probe cover and gel used Ultrasound Image Saved?: Yes Number of Attempts (See previous attempts in note section): 1 Procedure Tolerated: No Complications Procedure Outcome: Successful Procedure Comment:: pt in PACU to have EGD. Currently with one tenuous IV. Anesthesia team attempted PIV placement without success. Arms scanned with minimal options, mid line placed left. Performed By: Matt Martinez
--- NOTE | 2024-08-05 10:58 | STOM_PTH ---
PATIENT: Pratima Rolle LOC: [id number]#:[id number] AGE/SX: 53/F ROOM: RE08/04/[address]: Slava Garcia : 1970 BED: A DIS: 08/06/2024 SPEC #: [id number] RECD: 08/05/24 13:04 STATUS: LETTY REQ #: [id number] HARISH: 08/05/24 10:[address]: Slava Garcia DEPT: Surgical Specimen RECD BY: Jacki Malagon ENTERED: 08/05/24 13:06 SP TYPE: STOMACH OTHR DR: PIPPA Mccrary Tamsin Wendy Frye, MD Philip Hamby Kaplin, Aviva W Robert G Kloos, DO Carl B Petri, MD Schroer,MD Paula Stevens APRN Tissues: 1 - STOMACH BIOPSY 2 - ESOPHAGUS BIOPSY Procedures: SPECIAL STAIN 2 GROSS AND MICRO LEVEL 4 IMMUNOPEROXIDASE STAIN Comments: [id number]
--- NOTE | 2024-08-05 11:19 | W.PM.ENDDOP ---
Date of service: 08/05/24 Time of Service: 11:19 Endoscopy Report DATE OF PROCEDURE: 08/05/24 PRE-OP DIAGNOSIS: Hematemesis POST-OP DIAGNOSIS: other (Hematemesis, antral gastritis) PROCEDURE: Esophagogastroduodenoscopy with biopsy SURGEON: Hakeem Jang ANESTHESIA TYPE: General LMA/ETT ESTIMATED BLOOD LOSS: 2 PATHOLOGY: other (Biopsy #1, gastric antrum; biopsy #2, GE junction Z-line) COMPLICATIONS: None DISPOSITION: PACU INDICATIONS: 53-year-old female with chronic alcoholism, melena, and hematemesis. PREP: Other (None) PROCEDURE START TIME: 10:45 PROCEDURE END TIME: 11:07 FINDINGS: Antral gastritis, GERD PROCEDURE DESCRIPTION: Patient was taken to the operating suite. She underwent general anesthesia. Timeout was completed. The endoscopy scope was progressed through the oropharynx, into the esophagus, under direct visualization. The scope was then passed without difficulty through the esophagus to the GE junction, which was at about 40 cm. There was some reflux esophagitis that was noted at the Z-line. Scope was passed into the stomach, the stomach was insufflated, and the scope was passed up to the pylorus. There was some antral gastritis which was noted. Scope was passed without difficulty through the pyloric sphincter into the duodenum. The ampulla Vater was visualized, there was normal-appearing bile draining into the duodenum, there was no blood seen in the duodenum, nor was there mucosal ulceration. Scope was slowly retracted. The antrum and body of the stomach was examined, there were no visualized ulcers, however the antral mucosa was notably injected and thickened. There were a few areas of thin blood streaking from prior hemorrhage. No submucosal varicosities were visible. An antral biopsy was obtained and sent for permanent pathology, gastric antrum. The site was observed for about 1 minute, and appeared hemostatic. Scope was retroflexed, the body, fundus and cardiac regions of the stomach were examined, there were no visible submucosal varicosities. The mucosa was only mildly inflamed. Scope was returned to the neutral position, and further retracted to the level of the Z-line. A biopsy was obtained of the Z-line at about 36 cm from the teeth, this was sent for permanent pathology, GE junction. Scope was retracted slowly through the remainder of the esophagus, which appeared normal without mass, inflammation, nor stricture. Patient has tolerated the procedure well, she is transitioned to the recovery unit, she remains in stable condition.
--- NOTE | 2024-08-05 12:14 | W.PC.ACHO ---
Registration Status: ADM IN Primary Language: Preferred Language: Mongolian ED Information & Data Chief Complaint Abd Prob 08/04/24 16:12 Chief Complaint Abd Prob 08/04/24 15:55 Other Complaint RespSymp 08/04/24 15:41 Triage Note Brought in with h/o vomiting 08/04/24 15:41 clots today. patient was discharged from hospital 2 days ago. Recently diagnosed with PEs. complaining of left sided Abd pain. Patient state she was supposed to on blood thinners but she lost them as she discharged day before yesterday. Reported blood in stool 3 days ago. Patient been coughing for the past couple of days Medical / Surgical History (Last Reviewed 08/04/24 @ 20:45 by Slava Garcia) DVT prophylaxis Chronic pain (02/20/09) Depression (04/03/15) Anemia COPD (chronic obstructive pulmonary disease) HTN (hypertension), benign Spinal stenosis (Last Reviewed 08/04/24 @ 20:45 by Slava Garcia) Internal injury, spleen, closed Back surgery Most Recent Vital Signs Temperature 36 C L 08/05/24 11:56 Temperature Source Temporal Artery Scan 08/05/24 11:56 Pulse 93 H 08/05/24 11:56 Pulse Rhythm Regular 08/04/24 20:50 Pulse 97 H 08/05/24 11:35 Respiratory Rate 16 08/05/24 11:56 Respiratory Effort Normal 08/04/24 20:50 Respiratory Depth Normal 08/04/24 20:50 Respiratory Pattern Normal 08/04/24 20:50 Blood Pressure 116/69 08/05/24 11:56 Blood Pressure Mean 84 08/05/24 11:56 Pulse Oximetry 96 08/05/24 11:56 Oxygen Delivery Method Room Air 08/05/24 11:30 Oxygen Flow Rate 8 08/05/24 11:15 Pain Level 0 08/05/24 11:30 Comment BP inaccurate 08/05/24 11:22 Allergies hydromorphone (From Dilaudid) Allergy (Severe, Verified 08/04/24 15:50) Itching Face swelling oxycodone Adverse Reaction (Unknown, Verified 08/04/24 15:50) TERRIBLE DREAMS FROM PERCOCET Active Medications Generic Name Dose Route Start Last Admin Trade Name Freq PRN Reason Stop Dose Admin Budesonide/Formoterol Fumarate 2 puff 08/04/24 20:00 08/05/24 08:11 Budesonide/Formoterol 160/4.5 6 Gm 60 Puff Inh IH 2 puffs BID SHASHANK Administration Citalopram Hydrobromide 40 mg 08/05/24 08:30 08/05/24 08:04 Citalopram 20 Mg Tab PO 40 mg DAILY SHASHANK Administration Docusate Sodium 100 mg 08/04/24 20:00 08/05/24 08:05 Docusate Sodium 100 Mg Cap PO Not Given BID SHASHANK Doxepin HCl 25 mg 08/04/24 20:00 08/05/24 08:04 Doxepin 25 Mg Cap PO 25 mg BID SHASHANK Administration Ferrous Sulfate 325 mg 08/05/24 08:30 08/05/24 08:04 Ferrous Sulfate 325 Mg Tab PO 325 mg DAILY SHASHANK Administration Folic Acid 1 mg 08/05/24 08:30 08/05/24 08:04 Folic Acid 1 Mg Tab PO 1 mg DAILY SHASHANK Administration Potassium Chloride/Sodium Chloride 1,000 mls @ 125 mls/hr 08/04/24 22:00 08/05/24 06:42 Kcl 20meq/D5-0.45% Nacl IV 125 mls/hr INFUSION SHASHANK Administration Lisinopril 20 mg 08/05/24 08:30 08/05/24 08:04 Lisinopril 20 Mg Tab PO 20 mg On Hold: 08/05/24 08:30 DAILY SHASHANK Administration Multivitamins 1 tab 08/05/24 08:30 08/05/24 08:04 Multivitamin Tab PO 1 tab DAILY SHASHANK Administration Nicotine 21 mg 08/04/24 20:56 08/04/24 21:40 Nicotine 21 Mg/24 Hr Patch TD 21 mg DAILY PRN PRN Administration Pantoprazole Sodium 40 mg 08/04/24 22:00 08/04/24 22:45 Pantoprazole 40 Mg Vial IVP 40 mg Q12H SHASHANK Administration Quetiapine Fumarate 150 mg 08/04/24 22:30 08/04/24 22:46 Quetiapine 100 Mg Tab PO 150 mg HS SHASHANK Administration Sodium Chloride 0 ml 08/04/24 15:48 08/04/24 22:47 Normal Saline Flush 10 Ml Syr IVP 10 ml PRN PRN Administration Sodium Chloride 0 ml 08/04/24 20:00 08/04/24 21:47 Normal Saline Flush 10 Ml Syr IVP 10 ml BID SHASHANK Administration Thiamine HCl 100 mg 08/05/24 08:30 08/05/24 08:04 Thiamine 100 Mg Tab PO 100 mg QAM SHASHANK Administration Tiotropium [place] 2 puff 08/05/24 08:30 08/05/24 08:11 Tiotropium [place]-Respimat 10 Puff Inh IH 2 puffs DAILY SHASHANK Administration Topiramate 50 mg 08/04/24 20:00 08/04/24 21:43 Topiramate 50 Mg Tab PO 50 mg HS SHASHANK Administration Trazodone HCl 75 mg 08/04/24 19:00 08/04/24 21:42 Trazodone 50 Mg Tab PO 75 mg HS PRN PRN Administration IV IV Catheter Type [] Mid-line Peripheral Line IV Catheter Type [Right Hand] Saline Lock IV Catheter Type [Left Wrist] Saline Lock IV Catheter Gauge [] 20 IV Catheter Gauge [Right Hand] 18 IV Catheter Gauge [Left Wrist] 20 Diet Orders Category Date Time Status Diet [Post Op Diet] [DIET] Nutrition 08/05/24 Lunch Active Diagnostics 08/05/24 08/05/24 08/04/24 Range/Units 18:00 06:20 18:49 WBC Pending 4.09 L (4.4-10.8) 10^3/uL RBC Pending 2.85 L (3.93-5.22) 10^6/uL Hgb Pending 7.9 L (11.2-15.7) g/dL Hct Pending 25.5 L (36.0-46.0) % MCV Pending 90 (80-95) fL MCH Pending 27.7 (27.0-33.0) pg MCHC Pending 31.0 L (32.0-36.0) % RDW Pending 23.5 H (11.7-14.6) % Plt Count Pending 310 (130-400) 10^3/uL MPV Pending 10.6 (8.0-11.0) fL Immature Gran % % Neutrophils % % Lymphocytes % % Monocytes % % Eosinophils % % Basophils % % Nucleated RBC % (0.0-0.3) % Absolute Neutrophils (1.2-6.7) 10^3/uL Absolute Lymphocytes (1.2-3.4) 10^3/uL Absolute Monocytes (0.1-0.8) 10^3/uL Absolute Eosinophils (0.0-0.7) 10^3/uL Absolute Basophils (0.0-0.2) 10^3/uL RBC Morphology Anisocytosis PT (9.1-11.1) sec INR (0.9-1.1) Sodium 143 (136-145) mmol/L Potassium 3.5 (3.5-5.1) mmol/L Chloride 107 (98-107) mmol/L Carbon Dioxide 26.3 (21.0-32.0) mmol/L Anion Gap 9.7 (3-11) mmol/L BUN 8 (7-18) mg/dL Creatinine 0.8 (0.55-1.02) mg/dL Est GFR (CKD-EPI 2020) 86.96 (mL/min/1.73m2) Glucose 108 H (74-106) mg/dL Calcium 8.1 L (8.5-10.1) mg/dL Magnesium 2.1 (1.8-2.4) mg/dL Total Bilirubin (0.2-1.0) mg/dL AST (15-37) U/L ALT (14-59) U/L Alkaline Phosphatase (46-116) U/L Troponin I Cancelled (<or=51) ng/L Total Protein (6.4-8.2) g/dL Albumin (3.4-5.0) g/dL Lipase (<78) U/L Ethyl Alcohol (<10) mg/dL ABO/Rh Antibody Screen 08/04/24 08/04/24 08/04/24 Range/Units 17:20 16:07 15:30 WBC 8.56 (4.4-10.8) 10^3/uL RBC 3.34 L (3.93-5.22) 10^6/uL Hgb 9.0 L (11.2-15.7) g/dL Hct 29.2 L (36.0-46.0) % MCV 87 (80-95) fL MCH 26.9 L (27.0-33.0) pg MCHC 30.8 L (32.0-36.0) % RDW 22.5 H (11.7-14.6) % Plt Count 400 (130-400) 10^3/uL MPV 10.1 (8.0-11.0) fL Immature Gran % 0.4 % Neutrophils % 72.8 % Lymphocytes % 17.3 % Monocytes % 7.7 % Eosinophils % 0.7 % Basophils % 1.1 % Nucleated RBC % 0.0 (0.0-0.3) % Absolute Neutrophils 6.24 (1.2-6.7) 10^3/uL Absolute Lymphocytes 1.48 (1.2-3.4) 10^3/uL Absolute Monocytes 0.66 (0.1-0.8) 10^3/uL Absolute Eosinophils 0.06 (0.0-0.7) 10^3/uL Absolute Basophils 0.09 (0.0-0.2) 10^3/uL RBC Morphology See Below Anisocytosis 2+ PT 10.6 (9.1-11.1) sec INR 1.1 (0.9-1.1) Sodium 141 (136-145) mmol/L Potassium 3.5 (3.5-5.1) mmol/L Chloride 103 (98-107) mmol/L Carbon Dioxide 20.8 L (21.0-32.0) mmol/L Anion Gap 17.2 H (3-11) mmol/L BUN 11 (7-18) mg/dL Creatinine 0.8 (0.55-1.02) mg/dL Est GFR (CKD-EPI 2020) 86.96 (mL/min/1.73m2) Glucose 94 (74-106) mg/dL Calcium 8.4 L (8.5-10.1) mg/dL Magnesium 1.6 L (1.8-2.4) mg/dL Total Bilirubin 0.4 (0.2-1.0) mg/dL AST 19 (15-37) U/L ALT 26 (14-59) U/L Alkaline Phosphatase 81 (46-116) U/L Troponin I 14 18 (<or=51) ng/L Total Protein 7.1 (6.4-8.2) g/dL Albumin 3.3 L (3.4-5.0) g/dL Lipase 28 (<78) U/L Ethyl Alcohol 252.3 H (<10) mg/dL ABO/Rh A Positive Antibody Screen NEGATIVE Intake and Output - 24 Hour Total 08/04/24 15:33 thru 08/05/24 11:30 Intake Total 3466.667 Output Total 650 Balance 2816.667 Weight 76.7 kg Intake: IV 3466.667 Output: Urine 650 Other: Urine Color Yellow Urine Appearance Clear Urine Odor Normal Comment unable to measure urine, void outside the toilet hat. Stool Size Moderate Stool Characteristics Soft Black Green Emesis Description None Falls Risk Assessment History of Falls Previous History 08/04/24 20:50 Contributing Factors No Factors 08/04/24 20:50 Ambulatory Aids Independent 08/04/24 20:50 Tubes/Lines W/no contributing factors 08/04/24 20:50 Gait Evaluation No gait disturbance 08/04/24 20:50 Cognition No cognitive impairment 08/04/24 16:12 Fall Total Score 08/04/24 20:50 Level of Risk Moderate Risk 08/04/24 20:50 Problems (Last Reviewed 08/04/24 @ 20:45 by Slava Garcia) Hypomagnesemia (Acute) Increased anion gap metabolic acidosis (Acute) Hematemesis (Acute) Alcohol use disorder (Acute) CKD (chronic kidney disease) (Chronic) Pulmonary embolus (Acute) Depression with anxiety (Chronic) Hypertension (Chronic) COPD with hypoxia (Chronic) Alcohol intoxication in active alcoholic (Acute) Tobacco dependence (Acute 08/01/05) Notes 08/05/24 05:42 Nursing Notes by Cecy Rodríguez Nursing Note: 0450 [Patient is getting out of bed bed alarm on. Patient strongly requested to completely turn off the bed alarm all the time. Initialized on 08/05/24 05:42 - END OF NOTE v v v v v v v v v Sending and/or Receiving Nurses: Please use comment section below to note any information pertinent to the patient hand-off not included above. Information / Comments: Report received from: Keith Hernandez [employer]
[2024-08-05] MEDS: Pantoprazole 40 MG VIAL IVP (13:10)
[2024-08-05] MEDS: Normal Saline Flush 10 ML SYR IVP ×2 (13:11→20:45)
[2024-08-05] MEDS: metroNIDAZOLE 500 MG TAB PO ×2 (14:45→20:43)
--- NOTE | 2024-08-05 15:15 | W.ANESPOSTOP ---
Postoperative Evaluation Date, Time and Location Date Performed: 08/05/24 Time Performed: 15:15 Patient Location: Med/Surg Vital Signs Most Recent Imported Vital Signs: Most Recent Vital Signs Temp Pulse Resp BP Pulse Ox 36.7 C 88 16 120/77 93 08/05/24 14:34 08/05/24 14:34 08/05/24 14:34 08/05/24 14:34 08/05/24 14:34 Pain Score Most Recent Pain Score: Most Recent Pain Score Pain Level 0 08/05/24 14:34 Assessment Mental Status: Awake (Alert & Oriented to Patient Baseline) Airway and Respiratory Function: Patent airway with normal (patient baseline) respiratory exam Cardiovascular Function: Hemodynamically Stable Hydration Status: Adequately Hydrated Nausea & Vomiting: No Nausea or Vomiting Pain: Pt. Denies Any Pain Peripheral Nerve Block: Patient did not receive a nerve block
[2024-08-05 18:50] LABS: HCT 27.6 % (36.0-46.0); HGB 8.2 g/dL (11.2-15.7); MCH 26.9 pg (27.0-33.0); MPV 10.5 fL (8.0-11.0); Platelet Count 313 10^3/uL (130-400); RBC 3.05 10^6/uL (3.93-5.22); RDW 23.9 % (11.7-14.6); RDW-SD 77.4 fL; WBC 6.01 10^3/uL (4.4-10.8)
[2024-08-05 19:10] LABS: MCHC 29.7 % (32.0-36.0); MCV 91 fL (80-95)
[2024-08-05] MEDS: Topiramate 50 MG TAB PO (20:40)
[2024-08-05] MEDS: Pantoprazole 40 MG TABCR PO (20:42)
[2024-08-05] MEDS: QUEtiapine 100 MG TAB 150 MG PO (20:42)
[2024-08-05] MEDS: Nicotine 21 MG/24 HR PATCH TD (20:44)
[2024-08-05] MEDS: traZODone 50 MG TAB 75 MG PO (20:54)
[2024-08-06 00:38] VITALS: BP 128/80; PULSE 79; RESP 20; TEMP 36.4; O2SAT 96
[2024-08-06 03:05] VITALS: BP 140/80; PULSE 87; RESP 15; TEMP 36.4; O2SAT 99
[2024-08-06] MEDS: POTASSIUM CHLORIDE/D5-0.45NACL 1,000 ML 125 MEQ IV (03:10)
[2024-08-06 07:05] LABS: Abs Immature Grans 0.01 10^3/uL (0.0-0.06); Absolute Basophil Count 0.04 10^3/uL (0.0-0.2); Absolute Eosinophil Count 0.22 10^3/uL (0.0-0.7); Absolute Lymphocyte Count 1.41 10^3/uL (1.2-3.4); Absolute Monocyte Count 0.35 10^3/uL (0.1-0.8); Absolute Neutrophil Count 1.92 10^3/uL (1.2-6.7); Eosinophils % 5.6 %; HCT 25.4 % (36.0-46.0); HGB 7.6 g/dL (11.2-15.7); Immature Grans % 0.3 %; Lymphocytes % 35.7 %; MCH 27.9 pg (27.0-33.0); MCHC 29.9 % (32.0-36.0); MCV 93 fL (80-95); MPV 10.9 fL (8.0-11.0); Monocytes % 8.9 %; Neutrophils % 48.5 %; Platelet Count 264 10^3/uL (130-400); RBC 2.72 10^6/uL (3.93-5.22); RDW 23.7 % (11.7-14.6); RDW-SD 78.8 fL; WBC 3.95 10^3/uL (4.4-10.8)
[2024-08-06 07:21] VITALS: BP 155/90; PULSE 75; RESP 19; TEMP 36.4; O2SAT 98
[2024-08-06 07:26] LABS: Anion Gap 7.7 mmol/L (3-11); BUN 10 mg/dL (7-18); CO2 23.3 mmol/L (21.0-32.0); CREATININE 0.9 mg/dL (0.55-1.02); Calcium 7.9 mg/dL (8.5-10.1); Chloride 110 mmol/L (98-107); Glucose 126 mg/dL (74-106); Magnesium 1.9 mg/dL (1.8-2.4); Potassium 4.2 mmol/L (3.5-5.1); Sodium 141 mmol/L (136-145)
[2024-08-06] MEDS: Tiotropium Bromide-Respimat 10 PUFF INH 2 PUFF IH (08:21)
[2024-08-06] MEDS: Budesonide/Formoterol 160/4.5 6 GM 60 PUFF INH IH (08:22)
[2024-08-06 08:36] LABS: Anisocytosis 2+; Diff Comment RBC Morph Reviewed
--- NOTE | 2024-08-06 09:18 | PDOC.CMPRO ---
Date of service: 08/06/24 Time of Service: 09:18 Care Management Progress Note Discharge Potential Discharge Needs: PCP F/U Appt Anticipated Barriers to Discharge: None Identified Patient/Family Education Needs: Review discharge instructions, discuss Ask Me Three Transportation: RCT Plan: Anticipate Adrianne will be discharged back intro the community when medically cleared. She will follow up with her PCP and plan of care and transport via RCT. CM will follow and continue to support discharge planning. Social Determinants of Health Screening Social Determinants of health last assessed in clinic: 08/05/24 Will the Patient Participate in the Screening?: Yes Do you worry about having a steady place to live?: no Problems where you live: other In the past 12 months, have you had to go without electric, gas, oil or water in your home?: yes Has lack of transportation kept you from medical appointments or from doing things needed for daily living?: no Has anyone in your life made you feel unsafe or unsupported?: no How hard is it for you to pay for the very basics like food, housing, medical care, and heating? Would you say it is:: Somewhat hard Do you want help finding or keeping work or a job?: I do not need or want help If for any reason you need help with day-to-day activities such as bathing, preparing meals, shopping, managing finances, etc., do you get the help you need?: I get all the help I need How often do you feel lonely or isolated from those around you?: Often Do you speak a language other than Andorran at home?: No Does the patient want assistance with any of the above?: No Health Related Social Needs Health related social needs: inadequate housing (Z59.1), material hardship(utilities) (Z59.12), problems related to housing/economic circumstances (Z59.89) and feeling lonely/isolated (Z60.8) Health related social needs details: Patient has been living in her car for about 3 weeks now and feeling lonely.
[2024-08-06] MEDS: Ferrous Sulfate 325 MG TAB PO (09:51)
[2024-08-06] MEDS: Pantoprazole 40 MG TABCR PO (09:51)
[2024-08-06] MEDS: Multivitamin TAB 1 TAB PO (09:51)
[2024-08-06] MEDS: Thiamine 100 MG TAB PO (09:51)
[2024-08-06] MEDS: Folic Acid 1 MG TAB PO (09:51)
[2024-08-06] MEDS: Doxepin 25 MG CAP PO (09:51)
[2024-08-06] MEDS: Citalopram 20 MG TAB 40 MG PO (09:51)
--- NOTE | 2024-08-06 09:51 | PGE_ITS ---
Date of Service Date of service: 08/06/24 Time of Service: 09:51 Assessment and Plan Assessment and plan (1) Hematemesis: Status: Acute Assessment and plan: High risk with regular alcohol use and recent PE treated with apixaban She has been off the blood thinner x 2 days so no need for reversal. No h/o cirrhosis, her current labs with high normal platelets and her imaging are not consistent with cirrhosis or portal HTN, no indication for antibiotics or somatostatin. Hemodynamically stable, h/h haven't dropped since recent admission. Okay for floor. surgical consult : - Endoscopy on 08/05 - Some reflux esophagitis that was noted at the [facility]; some antral gastritis which was noted; biopsies sent. No ulcer , no bleeding (2) Blood loss anemia: Status: Acute Assessment and plan: H&H 7.9&25.5 from 9 & 29 H%H at 18:00 and as above (3) Helicobacter pylori (H. pylori): Status: Acute Assessment and plan: Antigen positive in stool on 07/23/24 -Will initiate treatment - With tetracycline, flagyl, bismuth and PPI x 14 days Not treated prior (4) Pulmonary embolus: Status: Acute Assessment and plan: Hold apixaban H&H pending non-tender, Resume after endoscopy if we are able to identify and treat source VS stable H&H (5) Alcohol intoxication in active alcoholic: Status: Acute Assessment and plan: 24 hour relapse at levels that are low for her not appear to be in withdrawal, continue to l monitor. (6) Alcohol use disorder: Status: Acute Assessment and plan: Ongoing topiramate, naltrexone after her procedure. Ecourage f/u with therapist and meetings prior to discharge. Continue to engage community resources as patient leaves in her car (7) Tobacco dependence: Status: Acute Assessment and plan: NRT daily (8) Hypertension: Status: Chronic Assessment and plan: BP stable , on lisinpopril (9) Depression with anxiety: Status: Chronic Assessment and plan: Ongoing e outpatient therapy. (10) CKD (chronic kidney disease): Status: Chronic Assessment and plan: Cr normal/below baseline stable at 0.8 BMp in am (11) Increased anion gap metabolic acidosis: Status: Acute Assessment and plan: Resolved on oral fluids (12) Hypomagnesemia: Status: Acute Assessment and plan: resolved Mg level in AM (13) COPD (chronic obstructive pulmonary disease): Assessment and plan: No exacerbation continue inhalers. (14) DVT prophylaxis: Assessment and plan: mechanical given UGI bleed discussed with Dr. Gregg Exam Narrative Exam Narrative: Constitutional The patient is comfortable and without acute distress Neuro:alert and oriented to self, person, place time and situation. No neurological focal deficit, Resp: Normal respiratory pattern, speaks in full sentences, unlabored breathing, clear lung bilaterally Cardio: regular rhythm, S1, S2, no murmur, GI: non-distended , soft and no tender Extremities: strength 5/5 to bilateral lower and upper extremities Psych: RASS 0, congruent mood and normal affect. Objective Last Vital Signs Temp 36.4 C L 08/06/24 07:21 Pulse 75 08/06/24 07:21 Resp 19 08/06/24 07:21 BP 155/90 H 08/06/24 07:21 Pulse Ox 98 08/06/24 07:21 Laboratory Results - last 24 hr 08/05/24 08/06/24 18:35 06:29 WBC 6.01 3.95 L RBC 3.05 L 2.72 L Hgb 8.2 L 7.6 L Hct 27.6 L 25.4 L MCV 91 93 MCH 26.9 L 27.9 MCHC 29.7 L 29.9 L RDW 23.9 H 23.7 H Plt Count 313 264 MPV 10.5 10.9 Immature Gran % 0.3 Neutrophils % 48.5 Lymphocytes % 35.7 Monocytes % 8.9 Eosinophils % 5.6 Basophils % 1.0 Nucleated RBC % 0.0 Absolute Neutrophils 1.92 Absolute Lymphocytes 1.41 Absolute Monocytes 0.35 Absolute Eosinophils 0.22 Absolute Basophils 0.04 RBC Morphology See Below Anisocytosis 2+ Sodium 141 Potassium 4.2 Chloride 110 H Carbon Dioxide 23.3 Anion Gap 7.7 BUN 10 Creatinine 0.9 Est GFR (CKD-EPI 2020) 75.50 Glucose 126 H Calcium 7.9 L Magnesium 1.9 PAWSS Have you Been Recently Intoxicated or Drunk Within the Last 30 days?: No Have you Ever Experienced Previous Episodes of Alcohol Withdrawal?: Yes Have you ever Experienced Withdrawal Seizures?: No Have you ever Experienced Delirium Tremens(DT)s?: Yes Have you ever undergone Alcohol Rehabilitation Treatment (i.e, inpt ot outpati ent treatment programs)?: Yes Have you ever Experienced Blackouts?: No Have you ever Combined Alcohol with other Downers within the last 90 days?: No Have you ever Combined Alcohol with any other Substance of Abuse during the last 90 days?: No Positive Blood Alcohol level on Presentation? [PCS.BAL]: No Evidence of Increased Autonomic Activity (i.e. HR>120, tremor, sweating, agitation, nausea)?: No Result: 3
[2024-08-06] MEDS: Normal Saline Flush 10 ML SYR IVP (09:52)
[2024-08-06] MEDS: Naltrexone 50 MG TAB PO (09:52)
[2024-08-06] MEDS: metroNIDAZOLE 500 MG TAB PO ×2 (09:52→14:57)
[2024-08-06] MEDS: Lisinopril 20 MG TAB PO (09:52)
[2024-08-06] MEDS: Nicotine 21 MG/24 HR PATCH TD (11:49)
--- NOTE | 2024-08-06 12:26 | DSE_ITS ---
Date of service: 08/06/24 Time of Service: 12:26 DS: Diagnosis Discharge Diagnosis (1) Hematemesis: Status: Acute (2) Blood loss anemia: Status: Acute (3) Helicobacter pylori (H. pylori): (4) Pulmonary embolus: (5) Alcohol intoxication in active alcoholic: Status: Acute (6) Alcohol use disorder: Status: Acute (7) Tobacco dependence: Status: Acute (8) Hypertension: Status: Chronic (9) Depression with anxiety: Status: Chronic (10) CKD (chronic kidney disease): Status: Chronic (11) Increased anion gap metabolic acidosis: Status: Acute (12) Hypomagnesemia: Status: Acute (13) COPD (chronic obstructive pulmonary disease): (14) DVT prophylaxis: Discharge Plan Disposition Patient Disposition: Home Condition: Improving Discharge Details Reason For Visit: Upper GI Bleed/Hematemasis,Alcohol Intoxication Admit Date/Time: 08/04/24 18:47 Admit Provider: Slava Garcia Attending Provider: Slava Garcia Primary Care Provider: Paula Barboza Hospital Course Hospital Course: This 53 yo female patient with alcohol use disorder, COPD, H. pylori antigen findings in stools, recently admitted for ETOH withdrawal and subacute GI bleed 07/22-07/27 and pulmonary embolus 07/28 treated with apixaban presented to the ED on 08/04/24 s/p an episode of vomiting blood and clots with nauseous and vomiting after drinking resumption. The patient was admitted to medical surgical floor by the hospitalist for GIB, stable anemia with Hgb at 9.0 and holding off Eliquis ( which she had lost 48 hours after discharge), and surgical consult for EGD. EGD completed by Dr. Jang showed no findings of acute bleeding or ulcer, was positive gastritis; biopsies were taken. H. pylori eradication treatment was initiated with quadruple therapy to be continued outpatient. H&H remained stable and the patient was hemodynamically stable, tolerating enteral intake. Eliquis to be resume on Monday, script sent d/t loss of previously ordered supply.Will discharged with 2 day's worth of tetracycline, falgyl; she has PPI at home that was previously ordered and should take it twice a day. Follow-up with PCP with 7 days of discharge please. Recommendations for PCP follow-up: Follow-up on CBC ordered for 08/12/[address] Gregg Recommendations for Follow Up Recommended tests to be ordered by follow up provider: [place] [facility] Home Meds and New Rx's Prescriptions: New Eliquis 5 mg tablet 5 mg PO BID Qty: 180 0RF Rx Instructions: Start on Monday08/08/24 AM metronidazole 500 mg tablet 500 mg PO TID Qty: 39 0RF tetracycline 500 mg capsule 500 mg PO QID Qty: 52 0RF bismuth subsalicylate 262 mg/15 mL suspension 300 mg PO QID Qty: 895 0RF pantoprazole [Protonix] 40 mg tablet,delayed release (DR/EC) 40 mg PO BID Qty: 60 0RF Continued lisinopril 20 mg tablet 20 mg PO DAILY Qty: 90 3RF citalopram 40 mg tablet 40 mg PO DAILY Qty: 90 3RF Spiriva Respimat 1.25 mcg/actuation mist 2 puff inhalation DAILY Qty: 4 12RF albuterol sulfate [Ventolin HFA] 90 mcg/actuation HFA aerosol inhaler See Rx Instructions .ROUTE .COMPLEX Qty: 18 12RF Dose Instruction: INHALE TWO PUFFS BY MOUTH EVERY 4 HOURS NEEDED Rx Instructions: INHALE TWO PUFFS BY MOUTH EVERY 4 HOURS NEEDED ferrous sulfate 325 mg (65 mg iron) tablet 325 mg PO DAILY Qty: 30 0RF folic acid 1 mg tablet 1 mg PO DAILY Qty: 30 0RF hydroxyzine HCl 25 mg tablet 25 mg PO TID PRN (Reason: anxiety) Qty: 180 1RF (DME) Hand Held Nebulizer See Rx Instructions .Route .MEDSUPPLY Qty: 1 0RF Rx Instructions: As directed clobetasol-emollient 15 GM cream 1 applic Topical DAILY PRNQty: 60 Rx Instructions: Apply to hands PRN (DME) POCKET CHAMBER Spacer See Rx Instructions .ROUTE .MEDSUPPLY Qty: 1 0RF Rx Instructions: As directed doxepin 25 mg capsule See Rx Instructions .ROUTE .COMPLEX Qty: 60 5RF Dose Instruction: TAKE ONE CAPSULE BY MOUTH TWICE A DAY Rx Instructions: TAKE ONE CAPSULE BY MOUTH TWICE A DAY quetiapine 100 mg tablet See Rx Instructions .ROUTE .COMPLEX Qty: 135 0RF Dose Instruction: TAKE 1 & 1/2 TABLETS BY MOUTH AT BEDTIME DAILY Rx Instructions: TAKE 1 & 1/2 TABLETS BY MOUTH AT BEDTIME DAILY trazodone 50 mg tablet See Rx Instructions .ROUTE .COMPLEX Qty: 135 1RF Dose Instruction: TAKE 1 & 1/2 TABLETS BY MOUTH DAILY AT BEDTIME NEEDED FOR SLEEP Rx Instructions: TAKE 1 & 1/2 TABLETS BY MOUTH DAILY AT BEDTIME NEEDED FOR SLEEP cyanocobalamin (vitamin B-12) [Vitamin B-12] 500 mcg Tablet 500 mcg PO DAILY Qty: 30 0RF docusate sodium [Colace] 100 mg Capsule 100 mg PO BID Qty: 60 0RF polyethylene glycol 3350 [Miralax] 17 gram/dose powder 17 g PO .Nightly Qty: 510 0RF bisacodyl 10 mg suppository 10 mg NH DAILY PRN (Reason: constipation lobger than 48 hours) Qty: 12 0RF (DME) nebulizers Misc See Rx Instructions .ROUTE .MEDSUPPLY Qty: 1 0RF Rx Instructions: As directed thiamine HCl (vitamin B1) 100 mg tablet 100 mg PO DAILY Patient Comments: TAKE ONE TABLET BY MOUTH EVERY DAY multivitamin [Multiple Vitamins] Tablet 1 tab PO DAILY Qty: 0 0RF ipratropium-albuterol 0.5 mg-3 mg(2.5 mg base)/3 mL Solution For Nebulization 3 ml UPD Q6H PRN (Reason: Wheezing) Qty: 24 2RF naltrexone 50 mg Tablet 50 mg PO DAILY Qty: 30 2RF topiramate 50 mg Tablet 50 mg PO HS Qty: 30 0RF budesonide-formoterol [Symbicort] 160-4.5 mcg/actuation Hfa Aerosol Inhaler 2 puff inhalation BID Qty: 1 2RF thiamine mononitrate (vit B1) [Vitamin B-1 (mononitrate)] 100 mg Tablet 100 mg PO QAM Qty: 30 0RF Held Eliquis DVT-PE Treat 30D Start 5 mg (74 tabs) tablets,dose pack See Rx Instructions .ROUTE .COMPLEX Qty: 74 0RF Hold Instructions: Resume on 08/09/24. 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 as ordered [employer] [facility] and follow-up with PCP Rx Instructions: orally per package directions Discontinued pantoprazole [Protonix] 40 mg tablet,delayed release (DR/EC) 40 mg PO DAILY Qty: 30 2RF Discharge Instructions Stand Alone Forms: Nursing Discharge Form Referrals: Paula Barboza NP [Primary Care Provider, Medicine] - 08/13/24 11:00 am Referral Note: Follow-up with PCP within 7 days of discharge please Activity:: Activity as Tolerated Equipment/Supplies:: No Equipment Needed Diet:: heart healthy- no alcohol Discharge Orders Discharge Orders: Discharge Order (Routine); Ordered 08/06/24 Ordered By: Albina Naqvi Other Ambulatory Orders: Complete Blood Count w/Diff (Routine) Timeframe: [id number] Facility: [facility] - Location: Laboratory Outpatient - [facility] Ordered By: Albina Naqvi DS: Summary Time Spent with Patient providing and/or coordinating discharge services: Greater than 30 minutes Status at Discharge Functional status at discharge: independent ambulation Overall status at discharge: patient is progressing back to baseline Mental Status: mental status grossly normal Speech and Movement: speech and movement normal Mood: congruent mood Affect: normal affect Quality:SDOH Health Related Social Needs: Health related social needs inadequate housing materia l hardship house/econ circumstance lonely/isolated Health related social needs details Patient has been l iving in her car for about 3 weeks now and feeling lonely. Health related social needs details: Patient has been living in her car for about 3 weeks now and feeling lonely. Exam Narrative Exam Narrative: Constitutional The patient is comfortable and without acute distress Neuro:alert and oriented to self, person, place time and situation. No neurological focal deficit, Resp: Normal respiratory pattern, speaks in full sentences, unlabored breathing, clear lung bilaterally Cardio: regular rhythm, S1, S2, no murmur, GI: non-distended , soft and no tender Extremities: strength 5/5 to bilateral lower and upper extremities Psych: RASS 0, congruent mood and normal affect. Psych Mental Status: mental status grossly normal Speech and Movement: speech and movement normal Mood: congruent mood Affect: normal affect DS: Data Vitals/I&O Vitals and I&O: Vital Signs Temperature 36.4 C L 08/06/24 07:21 Temperature Source Temporal Artery Scan 08/06/24 07:21 Pulse 75 08/06/24 07:21 Pulse Rhythm Regular 08/04/24 20:50 Pulse 97 H 08/05/24 11:35 Respiratory Rate 19 08/06/24 07:21 Respiratory Effort Normal 08/04/24 20:50 Respiratory Depth Normal 08/04/24 20:50 Respiratory Pattern Normal 08/04/24 20:50 Blood Pressure 155/90 H 08/06/24 07:21 Blood Pressure Mean 111 08/06/24 07:21 Pulse Oximetry 98 08/06/24 07:21 Oxygen Delivery Method Room Air 08/06/24 07:21 Oxygen Flow Rate 0 08/06/24 07:21 Pain Level 0 08/06/24 00:38 Comment Pt stated that she wanted to get some sleep, I will skip 11 pm vs and get them when pt gets up. 08/05/24 20:00 Comment BP inaccurate 08/05/24 11:22 Intake & Output 08/05/24 08/06/24 08/06/24 23:59 11:59 23:59 Intake Total 2226.5 / 5593.167 2340 / 2340 Output Total 75 / 375 1300 / 1300 Balance 2151.5 / 5218.167 1040 / 1040 Intake: IV 2226.5 / 5593.167 1999 Oral 340 / 340 Output: Urine 75 / 375 1300 / 1300 Other: Urine Color Yellow Yellow Urine Appearance Clear Clear Urine Odor Normal Normal Comment Pt voids ind. in the toilet. Data Completed and Pending Labs on day of discharge: Labs from last 24 hours 08/06/24 08/05/24 06:29 18:35 WBC 3.95 L 6.01 RBC 2.72 L 3.05 L Hgb 7.6 L 8.2 L Hct 25.4 L 27.6 L MCV 93 91 MCH 27.9 26.9 L MCHC 29.9 L 29.7 L RDW 23.7 H 23.9 H Plt Count 264 313 MPV 10.9 10.5 Immature Gran % 0.3 Neutrophils % 48.5 Lymphocytes % 35.7 Monocytes % 8.9 Eosinophils % 5.6 Basophils % 1.0 Nucleated RBC % 0.0 Absolute Neutrophils 1.92 Absolute Lymphocytes 1.41 Absolute Monocytes 0.35 Absolute Eosinophils 0.22 Absolute Basophils 0.04 RBC Morphology See Below Anisocytosis 2+ Sodium 141 Potassium 4.2 Chloride 110 H Carbon Dioxide 23.3 Anion Gap 7.7 BUN 10 Creatinine 0.9 Est GFR (CKD-EPI 2020) 75.50 Glucose 126 H Calcium 7.9 L Magnesium 1.9 PFSH All Active Problems (Updated 08/06/24 @ 15:04 by Hakeem Jang MD) Blood loss anemia (Acute) Hypomagnesemia (Acute) Increased anion gap metabolic acidosis (Acute) Hematemesis (Acute) Alcohol use disorder (Acute) CKD (chronic kidney disease) (Chronic) Anemia (Chronic) Depression with anxiety (Chronic) Encounter for medical clearance for patient hold (Acute) Abdominal fluid collection (Acute) Dyslipidemia (Acute) Hyperglycemia (Acute) Hypertension (Chronic) Acute hypoxemic respiratory failure (Acute) Acute on chronic blood loss anemia (Acute) COPD with hypoxia (Chronic) Fracture of rib of left side (Acute) Abdominal pain, chronic, left upper quadrant (Acute) Acute exacerbation of chronic obstructive pulmonary disease (COPD) (Acute) Alcohol intoxication in active alcoholic (Acute) Alcoholic gastritis without bleeding (Acute) Chronic upper gastrointestinal bleeding (Acute) Cyst and pseudocyst of pancreas (Acute) Heavy menses (Acute) Encounter for screening colonoscopy (Acute) Anemia (Chronic) Anxiety (Chronic) DUB (dysfunctional uterine bleeding) (Acute) Impaired fasting blood sugar (Acute 08/01/05) Obesity, unspecified (Acute 05/31/11) Atypical squamous cells of undetermined significance (ASC-US) on cervical Pap smear (Acute 08/05/09) ASCUS 08/05/09; 05/31/2011 Spinal stenosis of lumbar region (Acute 01/11/10) LS spine surg; Dr Sbeastian Walker Tobacco dependence (Acute 08/01/05) Medical History (Updated 08/06/24 @ 15:04 by Hakeem Jang MD) Pulmonary embolus Helicobacter pylori (H. pylori) DVT prophylaxis Chronic pain (02/20/09) chronic tramadol rx, back pain, sciatica despite LS surg 2009. Depression (04/03/15) Sertaline in the past with good relief of sx but then developed intolerable adverse rxns (nausea, flushing) Started on venlafaxine 03/2015 PHQ9 score = 9, indicating mild depression 03/2015 Anemia COPD (chronic obstructive pulmonary disease) HTN (hypertension), benign Spinal stenosis Lumbar region Surgical History Internal injury, spleen, closed with IR embolization Back surgery L5-S1 decompression 2009 Family History Mother , lung cancer at age 50. No problems noted. Father , MVA No problems noted. Other Lung cancer Social History Smoking/Tobacco Use Status: Current every day Tobacco Type: cigarettes Smoking risk assessment performed?: Yes Alcohol Intake: current Alcohol Intake frequency: 3 or more drinks per day Alcohol type: beer and hard liquor Drug use: Never Substance use type: does not use Housing: other Do you feel safe at home: Yes Do you feel safe in your relationship?: Yes Time Spent with Patient Time Spent with Patient: >85 minutes Time was spent: preparing to see the patient(eg.review tests), obtaining and/or reviewing separately otained hiistory, ordering medications,tests, procedures, referring, communicating with other health hospice care sales consultant, indepentently interpreting results, counseling the patient and care coordination
--- NOTE | 2024-08-06 14:55 | PGE_ITS ---
Date of Service Date of service: 08/06/24 Time of Service: 10:15 Assessment and Plan Assessment and plan (1) Helicobacter pylori (H. pylori): Assessment and plan: Patient with H. pylori infection, underwent EGD yesterday, with biopsy. Her hemoglobin appears stable. Clinical question of whether her anticoagulation with Eliquis should be restarted now, or held longer. Will defer to hospitalist service for this, anticoagulation should be held for at least 48 hours following procedure. She does need quadruple antibiotic therapy for H. pylori. Have counseled her again about alcohol cessation. She should follow-up in 2 weeks in clinic for review of pathology from biopsy. (2) Alcohol use disorder: Status: Acute Assessment and plan: Have counseled patient about alcohol cessation. (3) COPD with hypoxia: Status: Chronic Assessment and plan: I have counseled the patient about smoking cessation (4) Pulmonary embolus: Assessment and plan: See above, patient with Eliquis prior to presentation. Discussed today with patient's hospitalist Ms. Albina Naqvi regarding timing for continuation of Eliquis. Subjective Subjective Interval history since last seen: Feeling well, no discomfort following endoscopy. Objective Last Vital Signs Temp 36.4 C L 08/06/24 07:21 Pulse 75 08/06/24 07:21 Resp 19 08/06/24 07:21 BP 155/90 H 08/06/24 07:21 Pulse Ox 98 08/06/24 07:21 Laboratory Results - last 24 hr 08/05/24 08/06/24 18:35 06:29 WBC 6.01 3.95 L RBC 3.05 L 2.72 L Hgb 8.2 L 7.6 L Hct 27.6 L 25.4 L MCV 91 93 MCH 26.9 L 27.9 MCHC 29.7 L 29.9 L RDW 23.9 H 23.7 H Plt Count 313 264 MPV 10.5 10.9 Immature Gran % 0.3 Neutrophils % 48.5 Lymphocytes % 35.7 Monocytes % 8.9 Eosinophils % 5.6 Basophils % 1.0 Nucleated RBC % 0.0 Absolute Neutrophils 1.92 Absolute Lymphocytes 1.41 Absolute Monocytes 0.35 Absolute Eosinophils 0.22 Absolute Basophils 0.04 RBC Morphology See Below Anisocytosis 2+ Sodium 141 Potassium 4.2 Chloride 110 H Carbon Dioxide 23.3 Anion Gap 7.7 BUN 10 Creatinine 0.9 Est GFR (CKD-EPI 2020) 75.50 Glucose 126 H Calcium 7.9 L Magnesium 1.9 Objective Narrative Objective Narrative: Adult female, she is awake and alert, in no discomfort today. Her vital signs are normal. Her abdomen is soft and nontender. PAWSS Have you Been Recently Intoxicated or Drunk Within the Last 30 days?: No Have you Ever Experienced Previous Episodes of Alcohol Withdrawal?: Yes Have you ever Experienced Withdrawal Seizures?: No Have you ever Experienced Delirium Tremens(DT)s?: Yes Have you ever undergone Alcohol Rehabilitation Treatment (i.e, inpt ot outpatient treatment programs)?: Yes Have you ever Experienced Blackouts?: No Have you ever Combined Alcohol with other Downers within the last 90 days?: No Have you ever Combined Alcohol with any other Substance of Abuse during the last 90 days?: No Positive Blood Alcohol level on Presentation? [PCS.BAL]: No Evidence of Increased Autonomic Activity (i.e. HR>120, tremor, sweating, agitation, nausea)?: No Result: 3 Time Spent with Patient Time Spent with Patient: <25 minutes Time was spent: preparing to see the patient(eg.review tests), referring, communicating with other health neonatal critical care nurse, indepentently interpreting results and counseling the patient
--- NOTE | 2024-08-06 17:11 | CMDISCH_ITS ---
Date of service: 08/06/24 Time of Service: 17:11 LACE Index Scoring Tool Questions: Length of Stay (in days): 2 Was the patient admitted via the E.D.?: Yes Comorbidities: Chronic Pulmonary Disease and Liver or Renal Disease E.D. Visits: 12 Answers: Total Score: 14 Risk of Readmission: High Risk Care Management Discharge Plan Reason for Hospitalization: GIB Discharge Plan: Adrianne will be discharged back into the community. She will follow up with her PCP and plan of care and transport via [facility]. VIKTORIA has provided Adrianne with contact information for assistance with applying for Social Security Disability and has also shared the information with her head athletic trainer/strength coach who has offered to help with transportation. Adrianne plans to have her phone turned back on tomorrow with her daughter and sister's help to facilitate communication moving forward. Patient/Family Education Needs: Review discharge instructions, medication instructions with emphasis on avoiding alcohol while taking some of the medications and discuss Ask Me Three Services Needed at Discharge: Transportation SDOH Health Related Social Needs: Health related social needs risk of homeless food inse curity material hardship house/econ circumstance lonely/isolated Health related social needs details Patient has been l iving in her car for about 3 weeks now and feeling lonely. Health related social needs details: Patient has been living in her car for about 3 weeks now and feeling lonely.
== END 2024-08-06 16:36 | disposition home or self-care (01) | DRG 377 ==
LOC: ER 19:06 → MS 20:37
PROVIDERS: Surgery; Admitting Provider Family Medicine; Emergency Provider Emergency Medicine; PCP Nurse Practitioner; Responsible Provider Nurse Practitioner Acute Care; Visit Provider Family Medicine
PROC: 0DJ68ZZ Inspection of Stomach, Via Natural or Artificial Opening Endoscopic (ICD-10-PCS; CPT 43235; principal; 2024-08-05 09:00)
DX: K29.21 Alcoholic gastritis with bleeding (principal); I26.99 Other pulmonary embolism without acute cor pulmonale; E87.29 Other acidosis; Z59.02 Unsheltered homelessness; F10.229 Alcohol dependence with intoxication, unspecified; I12.9 Hypertensive chronic kidney disease with stage 1 through stage 4 chronic kidney disease, or unspecified chronic kidney disease; F17.210 Nicotine dependence, cigarettes, uncomplicated; N18.32 Chronic kidney disease, stage 3b; E83.42 Hypomagnesemia; J44.9 Chronic obstructive pulmonary disease, unspecified; D50.0 Iron deficiency anemia secondary to blood loss (chronic); Z79.01 Long term (current) use of anticoagulants; R09.02 Hypoxemia; R05.3 Chronic cough; F41.8 Other specified anxiety disorders; E78.5 Hyperlipidemia, unspecified; R73.9 Hyperglycemia, unspecified; Y90.8 Blood alcohol level of 240 mg/100 ml or more; B96.81 Helicobacter pylori [H. pylori] as the cause of diseases classified elsewhere; M48.061 Spinal stenosis, lumbar region without neurogenic claudication; G89.29 Other chronic pain; K22.89 Other specified disease of esophagus
CPT/HCPCS: 43239; 00123; 31500; 36410; 36415; 71275; 76942; 80048; 80053; 83690; 85027; 86850; 86900; 86901; 88305; 93005; 94640; 96365; 96366; 96375; 99291; 74174; 80320; 83735; 84484; 85025; 85610; 88313; 88361; 93010; 94664; 99223; 99233; 99239; J0330; J0696; J2003; J2250; J2405; J2470; J2704; J3010; J3475; J3490; J7620

== ENCOUNTER 2024-08-08 01:47 | Emergency (ER) | payer MEDICAID, SELFPAY ==
--- NOTE | 2024-08-08 01:46 | W.ED.GENAD ---
Discharge Plan Disposition Patient Disposition: Home Condition: Improving Discharge Details Clinical Impression: Alcohol intoxication in active alcoholic Primary Care Provider: Paula Barboza ED Provider: Elio Navarrete Meds and New Rx's Prescriptions: No Action lisinopril 20 mg tablet 20 mg PO DAILY Qty: 90 3RF citalopram 40 mg tablet 40 mg PO DAILY Qty: 90 3RF Spiriva Respimat 1.25 mcg/actuation mist 2 puff inhalation DAILY Qty: 4 12RF albuterol sulfate [Ventolin HFA] 90 mcg/actuation HFA aerosol inhaler See Rx Instructions .ROUTE .COMPLEX Qty: 18 12RF Dose Instruction: INHALE TWO PUFFS BY MOUTH EVERY 4 HOURS NEEDED Rx Instructions: INHALE TWO PUFFS BY MOUTH EVERY 4 HOURS NEEDED ferrous sulfate 325 mg (65 mg iron) tablet 325 mg PO DAILY Qty: 30 0RF folic acid 1 mg tablet 1 mg PO DAILY Qty: 30 0RF hydroxyzine HCl 25 mg tablet 25 mg PO TID PRN (Reason: anxiety) Qty: 180 1RF (DME) Hand Held Nebulizer See Rx Instructions .Route .MEDSUPPLY Qty: 1 0RF Rx Instructions: As directed clobetasol-emollient 15 GM cream 1 applic Topical DAILY PRNQty: 60 Rx Instructions: Apply to hands PRN (DME) POCKET CHAMBER Spacer See Rx Instructions .ROUTE .MEDSUPPLY Qty: 1 0RF Rx Instructions: As directed doxepin 25 mg capsule See Rx Instructions .ROUTE .COMPLEX Qty: 60 5RF Dose Instruction: TAKE ONE CAPSULE BY MOUTH TWICE A DAY Rx Instructions: TAKE ONE CAPSULE BY MOUTH TWICE A DAY quetiapine 100 mg tablet See Rx Instructions .ROUTE .COMPLEX Qty: 135 0RF Dose Instruction: TAKE 1 & 1/2 TABLETS BY MOUTH AT BEDTIME DAILY Rx Instructions: TAKE 1 & 1/2 TABLETS BY MOUTH AT BEDTIME DAILY trazodone 50 mg tablet See Rx Instructions .ROUTE .COMPLEX Qty: 135 1RF Dose Instruction: TAKE 1 & 1/2 TABLETS BY MOUTH DAILY AT BEDTIME NEEDED FOR SLEEP Rx Instructions: TAKE 1 & 1/2 TABLETS BY MOUTH DAILY AT BEDTIME NEEDED FOR SLEEP cyanocobalamin (vitamin B-12) [Vitamin B-12] 500 mcg Tablet 500 mcg PO DAILY Qty: 30 0RF docusate sodium [Colace] 100 mg Capsule 100 mg PO BID Qty: 60 0RF polyethylene glycol 3350 [Miralax] 17 gram/dose powder 17 g PO .Nightly Qty: 510 0RF bisacodyl 10 mg suppository 10 mg [place] DAILY PRN (Reason: constipation lobger than 48 hours) Qty: 12 0RF Eliquis DVT-PE Treat 30D Start 5 mg (74 tabs) tablets,dose pack See Rx Instructions .ROUTE .COMPLEX Qty: 74 0RF Rx Instructions: orally per package directions Eliquis 5 mg tablet 5 mg PO BID Qty: 180 0RF Rx Instructions: Start on Monday08/08/24 AM metronidazole 500 mg tablet 500 mg PO TID Qty: 39 0RF tetracycline 500 mg capsule 500 mg PO QID Qty: 52 0RF bismuth subsalicylate 262 mg/15 mL suspension 300 mg PO QID Qty: 895 0RF pantoprazole [Protonix] 40 mg tablet,delayed release (DR/EC) 40 mg PO BID Qty: 60 0RF (DME) nebulizers Misc See Rx Instructions .ROUTE .MEDSUPPLY Qty: 1 0RF Rx Instructions: As directed thiamine HCl (vitamin B1) 100 mg tablet 100 mg PO DAILY Patient Comments: TAKE ONE TABLET BY MOUTH EVERY DAY multivitamin [Multiple Vitamins] Tablet 1 tab PO DAILY Qty: 0 0RF ipratropium-albuterol 0.5 mg-3 mg(2.5 mg base)/3 mL Solution For Nebulization 3 ml UPD Q6H PRN (Reason: Wheezing) Qty: 24 2RF naltrexone 50 mg Tablet 50 mg PO DAILY Qty: 30 2RF topiramate 50 mg Tablet 50 mg PO HS Qty: 30 0RF budesonide-formoterol [Symbicort] 160-4.5 mcg/actuation Hfa Aerosol Inhaler 2 puff inhalation BID Qty: 1 2RF thiamine mononitrate (vit B1) [Vitamin B-1 (mononitrate)] 100 mg Tablet 100 mg PO QAM Qty: 30 0RF Discharge Instructions Instructions: Alcohol Use Disorder ED Additional Instructions: You were seen for alcohol intoxication. Your vital signs and laboratory studies are reassuring. You are discharged into the care of your daughter. You should keep your scheduled appointments to follow-up with primary care. You should really attempt to cut back on your drinking given your recent medical problems. Return to ED for any syncope, chest pain, shortness of breath, other concerns. Referrals: Paula Barboza, [employer] [Primary Care Provider, Medicine] HPI General Mode of arrival: EMS. Date/Time Provider Initiated Documentation: 08/08/24 01:52. Limitations to Documentation: no limitations. Information obtained by: patient, EMS, RN notes reviewed and old records reviewed. HPI Narrative: Patient brought to ED by ambulance after she was arrested and issued citations by police for being intoxicated and behind the wheel of her car earlier this evening. Patient does admit to drinking alcohol. She has no complaints of at this time. She had low blood pressure with systolic in the 70s for EMS. Patient at this time denies any chest pain, shortness of breath, abdominal pain. She ambulated with assistance from EMS stretcher to ER stretcher. She was taken into protective custody and needed medical clearance before being taken into corrections. Related Data Home Medications ?Medication ?Instructions ?Recorded ?Confirmed clobetasol-emollient 0.05 % 1 applic topical DAILY PRN #60 12/08/16 08/04/24 topical cream grams inhalational spacing device #1 ea 09/28/20 08/04/24 (POCKET CHAMBER spacer) nebulizers #1 ea 03/16/21 08/04/24 citalopram 40 mg tablet 40 mg PO DAILY #90 tabs 11/27/23 08/04/24 lisinopril 20 mg tablet 20 mg PO DAILY #90 tab-caps 11/27/23 08/04/24 tiotropium bromide 1.25 2 puff inhalation DAILY #4 grams 11/27/23 08/04/24 mcg/actuation mist for inhalation (Spiriva Respimat) doxepin 25 mg capsule See Rx Instructions .Route 01/22/24 08/04/24 .COMPLEX #60 caps cyanocobalamin (vitamin B-12) 500 500 mcg PO DAILY #30 tabs 03/13/24 08/04/24 mcg tablet (Vitamin B-12) docusate sodium 100 mg capsule 100 mg PO BID #60 caps 03/13/24 08/04/24 (Colace) bisacodyl 10 mg rectal suppository 10 mg [place] DAILY PRN constipation 03/22/24 08/04/24 lobger than 48 hours #12 ea polyethylene glycol 3350 17 17 g PO .Nightly #510 grams 03/22/24 08/04/24 gram/dose oral powder (Miralax) quetiapine 100 mg tablet See Rx Instructions .Route 06/03/24 08/04/24 .COMPLEX #135 tabs Hand Held Nebulizer #1 ea 06/21/24 08/04/24 albuterol sulfate 90 mcg/actuation See Rx Instructions .Route 06/21/24 08/04/24 aerosol inhaler (Ventolin HFA) .COMPLEX #18 grams ferrous sulfate 325 mg (65 mg 325 mg PO DAILY #30 tabs 06/21/24 08/04/24 iron) tablet folic acid 1 mg tablet 1 mg PO DAILY #30 tabs 06/21/24 08/04/24 hydroxyzine HCl 25 mg tablet 25 mg PO TID PRN anxiety #180 tabs 06/21/24 08/04/24 trazodone 50 mg tablet See Rx Instructions .Route 07/01/24 08/04/24 .COMPLEX #135 tabs thiamine HCl (vitamin B1) 100 mg 100 mg PO DAILY 07/24/24 08/04/24 tablet budesonide-formoterol HFA 160 2 puff inhalation BID #1 inh 07/27/24 08/04/24 mcg-4.5 mcg/actuation aerosol inhaler (Symbicort) ipratropium 0.5 mg-albuterol 3 mg 3 ml UPD Q6H PRN Wheezing #24 pkgs 07/27/24 08/04/24 (2.5 mg base)/3 mL nebulization soln multivitamin (Multiple Vitamins 1 tab PO DAILY #0 tabs 07/27/24 08/04/24 tablet) naltrexone 50 mg tablet 50 mg PO DAILY #30 tabs 07/27/24 08/04/24 thiamine mononitrate (vit B1) 100 100 mg PO QAM #30 tabs 07/27/24 08/04/24 mg tablet (Vitamin B-1 (mononitrate)) topiramate 50 mg tablet 50 mg PO HS #30 tabs 07/27/24 08/04/24 apixaban 5 mg (74 tabs) tablets in See Rx Instructions PO .COMPLEX 07/30/24 08/04/24 a dose pack (Eliquis DVT-PE Treat #74 dose pk 30D Start) Held on 08/06/24. Instructions: Resume on 08/09/24. 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 as ordered [employer] and follow-up with PCP apixaban 5 mg tablet (Eliquis) 5 mg PO BID #180 tabs 08/06/24 bismuth subsalicylate 262 mg/15 mL 300 mg (17.1756 mL) PO QID #895 mL 08/06/24 oral suspension metronidazole 500 mg tablet 500 mg PO TID #39 tabs 08/06/24 pantoprazole 40 mg tablet,delayed 40 mg PO BID #60 tabs 08/06/24 release (Protonix) tetracycline 500 mg capsule 500 mg PO QID #52 caps 08/06/24 Previous Rx's ?Medication ?Instructions ?Recorded inhalational spacing device #1 ea 09/28/20 (POCKET CHAMBER spacer) nebulizers #1 ea 03/16/21 citalopram 40 mg tablet 40 mg PO DAILY #90 tabs 11/27/23 lisinopril 20 mg tablet 20 mg PO DAILY #90 tab-caps 11/27/23 tiotropium bromide 1.25 2 puff inhalation DAILY #4 grams 11/27/23 mcg/actuation mist for inhalation (Spiriva Respimat) doxepin 25 mg capsule See Rx Instructions .Route 01/22/24 .COMPLEX #60 caps cyanocobalamin (vitamin B-12) 500 500 mcg PO DAILY #30 tabs 03/13/24 mcg tablet (Vitamin B-12) docusate sodium 100 mg capsule 100 mg PO BID #60 caps 03/13/24 (Colace) bisacodyl 10 mg rectal suppository 10 mg [place] DAILY PRN constipation 03/22/24 lobger than 48 hours #12 ea polyethylene glycol 3350 17 17 g PO .Nightly #510 grams 03/22/24 gram/dose oral powder (Miralax) quetiapine 100 mg tablet See Rx Instructions .Route 06/03/24 .COMPLEX #135 tabs Hand Held Nebulizer #1 ea 06/21/24 albuterol sulfate 90 mcg/actuation See Rx Instructions .Route 06/21/24 aerosol inhaler (Ventolin HFA) .COMPLEX #18 grams ferrous sulfate 325 mg (65 mg 325 mg PO DAILY #30 tabs 06/21/24 iron) tablet folic acid 1 mg tablet 1 mg PO DAILY #30 tabs 06/21/24 hydroxyzine HCl 25 mg tablet 25 mg PO TID PRN anxiety #180 tabs 06/21/24 trazodone 50 mg tablet See Rx Instructions .Route 07/01/24 .COMPLEX #135 tabs budesonide-formoterol HFA 160 2 puff inhalation BID #1 inh 07/27/24 mcg-4.5 mcg/actuation aerosol inhaler (Symbicort) ipratropium 0.5 mg-albuterol 3 mg 3 ml UPD Q6H PRN Wheezing #24 pkgs 07/27/24 (2.5 mg base)/3 mL nebulization soln multivitamin (Multiple Vitamins 1 tab PO DAILY #0 tabs 07/27/24 tablet) naltrexone 50 mg tablet 50 mg PO DAILY #30 tabs 07/27/24 thiamine mononitrate (vit B1) 100 100 mg PO QAM #30 tabs 07/27/24 mg tablet (Vitamin B-1 (mononitrate)) topiramate 50 mg tablet 50 mg PO HS #30 tabs 07/27/24 apixaban 5 mg (74 tabs) tablets in See Rx Instructions PO .COMPLEX 07/30/24 a dose pack (Eliquis DVT-PE Treat #74 dose pk 30D Start) Held on 08/06/24. Instructions: Resume on 08/09/24. 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 as ordered [employer] and follow-up with PCP apixaban 5 mg tablet (Eliquis) 5 mg PO BID #180 tabs 08/06/24 bismuth subsalicylate 262 mg/15 mL 300 mg (17.1756 mL) PO QID #895 mL 08/06/24 oral suspension metronidazole 500 mg tablet 500 mg PO TID #39 tabs 08/06/24 pantoprazole 40 mg tablet,delayed 40 mg PO BID #60 tabs 08/06/24 release (Protonix) tetracycline 500 mg capsule 500 mg PO QID #52 caps 08/06/24 Allergies Allergy/AdvReac Type Severity Reaction Status Date / Time hydromorphone (From Dilaudid) Allergy Severe Itching Verified 08/04/24 15:50 oxycodone AdvReac Unknown TERRIBLE Verified 08/04/24 15:50 DREAMS General ALISTAIR: 2 Exam Narrative Exam Narrative: Const: Obese female in NAD. VS per triage. HEENT: NC/AT. Normal facial exam. Neck: Supple. Trachea midline. Lungs: Normal respiratory effort. Lungs with coarse rhonchi and some scattered wheezing. Cor: RRR without murmur. Good radial pulses. GI: Soft/ND Neuro: A+O x 3. Slurred speech, unsteady gait. Cranial nerves II - XII grossly intact. No gross motor or sensory deficit. Medical Decision Making Patient arrives to ED by ambulance after being arrested and being released with citations but then placed in protective custody resulting in transport to ED by EMS for clearance. She has long history of alcohol use. She has been drinking today. She has had a recent admission just a few days ago for hematemesis with EGD that showed chronic gastritis. She is supposed to be taking Eliquis for recently diagnosed PE as well. She has no complaints tonight. Her blood pressure on arrival here is 102/57. Her heart rate is normal. However, given her recent medical problems and hospital admissions will place IV, start fluids, check labs and monitor vitals. Patient's alcohol level tonight is 254. Her chemistries and liver functions are fairly unremarkable. Her hemoglobin has actually gone up since her admission for hematemesis and is now 9.1. She has been stable on the monitor here. Will reevaluate in morning for sobriety and discharge. Patient's daughter has been contacted and will be coming to pick her up. Medical Records Medical records reviewed: Yes I reviewed the patient's medical records. Medical records narrative: recent inpatient records Lab Data Lab results reviewed: Yes I reviewed the patient's lab results. Lab results narrative: see MDM Quality:SDOH Health Related Social Needs: Health related social needs risk of homeless food insecurity material hardship house/econ circumstance lonely/isolated Health related social needs details Patient has been living in her car for about 3 weeks now and feeling lonely. PFSH All Active Problems (Updated 08/08/24 @ 05:14 by Elio Navarrete MD) Alcohol intoxication in active alcoholic (Acute) Blood loss anemia (Acute) Alcohol use disorder (Acute) CKD (chronic kidney disease) (Chronic) Anemia (Chronic) Depression with anxiety (Chronic) Abdominal fluid collection (Acute) Dyslipidemia (Acute) Abdominal pain, chronic, left upper quadrant (Acute) Chronic upper gastrointestinal bleeding (Acute) Cyst and pseudocyst of pancreas (Acute) Anemia (Chronic) Anxiety (Chronic) DUB (dysfunctional uterine bleeding) (Acute) Impaired fasting blood sugar (Acute 08/01/05) Obesity, unspecified (Acute 05/31/11) Atypical squamous cells of undetermined significance (ASC-US) on cervical Pap smear (Acute 08/05/09) ASCUS 08/05/09; 05/31/2011 Spinal stenosis of lumbar region (Acute 01/11/10) LS spine surg; Dr Sebastian Walker Tobacco dependence (Acute 08/01/05) Medical History Pulmonary embolus Helicobacter pylori (H. pylori) Chronic pain (02/20/09) chronic tramadol rx, back pain, sciatica despite LS surg 2009. Depression (04/03/15) Sertaline in the past with good relief of sx but then developed intolerable adverse rxns (nausea, flushing) Started on venlafaxine 03/2015 PHQ9 score = 9, indicating mild depression 03/2015 Anemia COPD (chronic obstructive pulmonary disease) HTN (hypertension), benign Spinal stenosis Lumbar region Surgical History Internal injury, spleen, closed with IR embolization Back surgery L5-S1 decompression 2009 Family History Mother , lung cancer at age 50. No problems noted. Father , MVA No problems noted. Other Lung cancer Social History Smoking/Tobacco Use Status: Current every day Tobacco Type: cigarettes Smoking risk assessment performed?: Yes Alcohol Intake: current Alcohol Intake frequency: 3 or more drinks per day Alcohol type: beer and hard liquor Drug use: Never Substance use type: does not use Housing: other Do you feel safe at home: Yes Do you feel safe in your relationship?: Yes
[2024-08-08 01:48] VITALS: BP 102/57; PULSE 82; RESP 16; TEMP 35.9; O2SAT 99
[2024-08-08 01:51] VITALS: RESP 16
[2024-08-08] MEDS: Normal Saline 1,000 ML 1000 ML IV (02:10)
[2024-08-08 04:57] LABS: ALT 25 U/L (14-59); AST 17 U/L (15-37); Albumin 3.4 g/dL (3.4-5.0); Alkaline Phosphatase 73 U/L (46-116); Anion Gap 11.2 mmol/L (3-11); BUN 14 mg/dL (7-18); Bilirubin, Total 0.2 mg/dL (0.2-1.0); CO2 23.8 mmol/L (21.0-32.0); CREATININE 1.2 mg/dL (0.55-1.02); Calcium 8.4 mg/dL (8.5-10.1); Chloride 107 mmol/L (98-107); Estimated GFR 53.13 (mL/min/1.73m2); Glucose 101 mg/dL (74-106); Potassium 4.2 mmol/L (3.5-5.1); Sodium 142 mmol/L (136-145); Total Protein 7.5 g/dL (6.4-8.2)
[2024-08-08 04:58] LABS: ETHANOL BLOOD 254.3 mg/dL (<10)
[2024-08-08 04:59] LABS: HGB 9.1 g/dL (11.2-15.7); MCH 28.3 pg (27.0-33.0); MCHC 30.3 % (32.0-36.0); MCV 94 fL (80-95); MPV 10.4 fL (8.0-11.0); Platelet Count 424 10^3/uL (130-400); RBC 3.21 10^6/uL (3.93-5.22); RDW 24.9 % (11.7-14.6); RDW-SD 80.9 fL; WBC 6.66 10^3/uL (4.4-10.8)
[2024-08-08 05:00] LABS: Abs Immature Grans 0.04 10^3/uL (0.0-0.06); Absolute Eosinophil Count 0.18 10^3/uL (0.0-0.7); Absolute Monocyte Count 0.36 10^3/uL (0.1-0.8); Absolute Neutrophil Count 3.68 10^3/uL (1.2-6.7); Anisocytosis 1+; Basophils % 1.5 %; Diff Comment RBC Morph Reviewed; Eosinophils % 2.7 %; Immature Grans % 0.6 %; Lymphocytes % 34.5 %; Monocytes % 5.4 %; Neutrophils % 55.3 %
--- NOTE | 2024-08-08 09:14 | NUR.NOTE ---
Addendum entered by Jagruti Shearer 08/08/24 09:23: [facility] picking up pt [id number]. Original Note: Getting ride for patient with [facility]. Nursing Note:
== END 2024-08-08 07:39 | disposition home or self-care (01) ==
PROVIDERS: Emergency Provider Emergency Medicine; PCP Nurse Practitioner
DX: F10.220 Alcohol dependence with intoxication, uncomplicated (principal); J44.9 Chronic obstructive pulmonary disease, unspecified; I10 Essential (primary) hypertension; Z86.711 Personal history of pulmonary embolism; Z79.01 Long term (current) use of anticoagulants; F17.210 Nicotine dependence, cigarettes, uncomplicated
CPT/HCPCS: 36415; 80053; 96360; 96361; 99284; 80320; 83735; 85025; 99283

== ENCOUNTER 2024-08-24 16:55 | Inpatient (IN) | payer MEDICAID, SELFPAY ==
[2024-08-24] VITALS (64 sets, daily range): BP systolic 86–129; BP diastolic 48–82; PULSE 90–114; RESP 14–30; TEMP 36.3–36.9; O2SAT 82–97
--- NOTE | 2024-08-24 17:29 | W.ED.GENAD ---
Discharge Plan Disposition Patient Disposition: Admit to [facility] Condition: Stable Discharge Details Clinical Impression: Hematemesis, Anemia, Alcohol use disorder Primary Care Provider: Paula Barboza ED Provider: Coy Milan Home Meds and New Rx's Prescriptions: No Action lisinopril 20 mg tablet 20 mg PO DAILY Qty: 90 3RF citalopram 40 mg tablet 40 mg PO DAILY Qty: 90 3RF Patient Comments: patient ran out Spiriva Respimat 1.25 mcg/actuation mist 2 puff inhalation DAILY Qty: 4 12RF albuterol sulfate [Ventolin HFA] 90 mcg/actuation HFA aerosol inhaler See Rx Instructions .ROUTE .COMPLEX Qty: 18 12RF Dose Instruction: INHALE TWO PUFFS BY MOUTH EVERY 4 HOURS NEEDED Rx Instructions: INHALE TWO PUFFS BY MOUTH EVERY 4 HOURS NEEDED ferrous sulfate 325 mg (65 mg iron) tablet 325 mg PO DAILY Qty: 30 0RF folic acid 1 mg tablet 1 mg PO DAILY Qty: 30 0RF hydroxyzine HCl 25 mg tablet 25 mg PO TID PRN (Reason: anxiety) Qty: 180 1RF (DME) Hand Held Nebulizer See Rx Instructions .Route .MEDSUPPLY Qty: 1 0RF Rx Instructions: As directed (DME) POCKET CHAMBER Spacer See Rx Instructions .ROUTE .MEDSUPPLY Qty: 1 0RF Rx Instructions: As directed doxepin 25 mg capsule See Rx Instructions .ROUTE .COMPLEX Qty: 60 5RF Dose Instruction: TAKE ONE CAPSULE BY MOUTH TWICE A DAY Patient Comments: ran out Rx Instructions: TAKE ONE CAPSULE BY MOUTH TWICE A DAY quetiapine 100 mg tablet See Rx Instructions .ROUTE .COMPLEX Qty: 135 0RF Dose Instruction: TAKE 1 & 1/2 TABLETS BY MOUTH AT BEDTIME DAILY Patient Comments: patient ran out Rx Instructions: TAKE 1 & 1/2 TABLETS BY MOUTH AT BEDTIME DAILY trazodone 50 mg tablet See Rx Instructions .ROUTE .COMPLEX Qty: 135 1RF Dose Instruction: TAKE 1 & 1/2 TABLETS BY MOUTH DAILY AT BEDTIME NEEDED FOR SLEEP Rx Instructions: TAKE 1 & 1/2 TABLETS BY MOUTH DAILY AT BEDTIME NEEDED FOR SLEEP cyanocobalamin (vitamin B-12) [Vitamin B-12] 500 mcg Tablet 500 mcg PO DAILY Qty: 30 0RF docusate sodium [Colace] 100 mg Capsule 100 mg PO BID Qty: 60 0RF polyethylene glycol 3350 [Miralax] 17 gram/dose powder 17 g PO .Nightly Qty: 510 0RF Eliquis DVT-PE Treat 30D Start 5 mg (74 tabs) tablets,dose pack See Rx Instructions .ROUTE .COMPLEX Qty: 74 0RF Rx Instructions: orally per package directions Eliquis 5 mg tablet 5 mg PO BID Qty: 180 0RF Rx Instructions: Start on Monday08/08/24 AM metronidazole 500 mg tablet 500 mg PO TID Qty: 39 0RF tetracycline 500 mg capsule 500 mg PO QID Qty: 52 0RF pantoprazole [Protonix] 40 mg tablet,delayed release (DR/EC) 40 mg PO BID Qty: 60 0RF (DME) nebulizers [facility] [place] See Rx Instructions .ROUTE .MEDSUPPLY Qty: 1 0RF Rx Instructions: As directed thiamine HCl (vitamin B1) 100 mg tablet 100 mg PO DAILY Patient Comments: TAKE ONE TABLET BY MOUTH EVERY DAY multivitamin [Multiple Vitamins] Tablet 1 tab PO DAILY Qty: 0 0RF ipratropium-albuterol 0.5 mg-3 mg(2.5 mg base)/3 mL Solution For Nebulization 3 ml UPD Q6H PRN (Reason: Wheezing) Qty: 24 2RF naltrexone 50 mg Tablet 50 mg PO DAILY Qty: 30 2RF topiramate 50 mg Tablet 50 mg PO HS Qty: 30 0RF budesonide-formoterol [Symbicort] 160-4.5 mcg/actuation Hfa Aerosol Inhaler 2 puff inhalation BID Qty: 1 2RF HPI General Date/Time Provider Initiated Documentation: 08/24/24 17:03. HPI Narrative: 54 year-old female presents to ED today by EMS with a chief complaint of reported some vomiting of blood and dark material while downtown today with recent diagnosis of GI bleeding, PEs that she is now non-compliant with Eliquis for- as she lost it- but he PEs had subsequently resolved on repeat CTA. Quality described as severe central and L sided abdominal pain, vomiting of dark red/black material, black stools, no radiation to chest pain, fever, shortness of breath, active vomiting, dysuria, headache, altered mentation. Severity is described as severe. Palliating factors include nothing specific - has been taking PeptoBismol daily but states her stools were black before this. Provoking factors include alcohol use disorder, has been drinking a pint or more per day for a long time. Events leading up to the incident/Associated Symptoms: Had a recent EGD that showed H pylori PUD. Patient not anticoagulated. Related Data Home Medications ?Medication ?Instructions ?Recorded ?Confirmed inhalational spacing device #1 ea 09/28/20 08/24/24 (POCKET CHAMBER spacer) nebulizers #1 ea 03/16/21 08/24/24 citalopram 40 mg tablet 40 mg PO DAILY #90 tabs 11/27/23 08/24/24 lisinopril 20 mg tablet 20 mg PO DAILY #90 tab-caps 11/27/23 08/24/24 tiotropium bromide 1.25 2 puff inhalation DAILY #4 grams 11/27/23 08/24/24 mcg/actuation mist for inhalation (Spiriva Respimat) doxepin 25 mg capsule See Rx Instructions .Route 01/22/24 08/24/24 .COMPLEX #60 caps cyanocobalamin (vitamin B-12) 500 500 mcg PO DAILY #30 tabs 03/13/24 08/24/24 mcg tablet (Vitamin B-12) docusate sodium 100 mg capsule 100 mg PO BID #60 caps 03/13/24 08/24/24 (Colace) Held on 08/24/24. Instructions: Pt Stopped/Never Started polyethylene glycol 3350 17 17 g PO .Nightly #510 grams 03/22/24 08/24/24 gram/dose oral powder (Miralax) Held on 08/24/24. Instructions: Pt Stopped/Never Started quetiapine 100 mg tablet See Rx Instructions .Route 06/03/24 08/24/24 .COMPLEX #135 tabs Hand Held Nebulizer #1 ea 06/21/24 08/24/24 albuterol sulfate 90 mcg/actuation See Rx Instructions .Route 06/21/24 08/24/24 aerosol inhaler (Ventolin HFA) .COMPLEX #18 grams ferrous sulfate 325 mg (65 mg 325 mg PO DAILY #30 tabs 06/21/24 08/24/24 iron) tablet folic acid 1 mg tablet 1 mg PO DAILY #30 tabs 06/21/24 08/24/24 hydroxyzine HCl 25 mg tablet 25 mg PO TID PRN anxiety #180 tabs 06/21/24 08/24/24 trazodone 50 mg tablet See Rx Instructions .Route 07/01/24 08/24/24 .COMPLEX #135 tabs thiamine HCl (vitamin B1) 100 mg 100 mg PO DAILY 07/24/24 08/24/24 tablet budesonide-formoterol HFA 160 2 puff inhalation BID #1 inh 07/27/24 08/24/24 mcg-4.5 mcg/actuation aerosol inhaler (Symbicort) ipratropium 0.5 mg-albuterol 3 mg 3 ml UPD Q6H PRN Wheezing #24 pkgs 07/27/24 08/24/24 (2.5 mg base)/3 mL nebulization soln multivitamin (Multiple Vitamins 1 tab PO DAILY #0 tabs 07/27/24 08/24/24 tablet) naltrexone 50 mg tablet 50 mg PO DAILY #30 tabs 07/27/24 08/24/24 topiramate 50 mg tablet 50 mg PO HS #30 tabs 07/27/24 08/24/24 apixaban 5 mg (74 tabs) tablets in See Rx Instructions PO .COMPLEX 07/30/24 08/24/24 a dose pack (Eliquis DVT-PE Treat #74 dose pk 30D Start) Held on 08/06/24. Instructions: Resume on 08/09/24. 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 follow-up with PCP apixaban 5 mg tablet (Eliquis) 5 mg PO BID #180 tabs 08/06/24 08/24/24 metronidazole 500 mg tablet 500 mg PO TID #39 tabs 08/06/24 08/24/24 pantoprazole 40 mg tablet,delayed 40 mg PO BID #60 tabs 08/06/24 08/24/24 release (Protonix) tetracycline 500 mg capsule 500 mg PO QID #52 caps 08/06/24 08/24/24 Previous Rx's ?Medication ?Instructions ?Recorded inhalational spacing device #1 ea 09/28/20 (POCKET CHAMBER spacer) nebulizers #1 ea 03/16/21 citalopram 40 mg tablet 40 mg PO DAILY #90 tabs 11/27/23 lisinopril 20 mg tablet 20 mg PO DAILY #90 tab-caps 11/27/23 tiotropium bromide 1.25 2 puff inhalation DAILY #4 grams 11/27/23 mcg/actuation mist for inhalation (Spiriva Respimat) doxepin 25 mg capsule See Rx Instructions .Route 01/22/24 .COMPLEX #60 caps cyanocobalamin (vitamin B-12) 500 500 mcg PO DAILY #30 tabs 03/13/24 mcg tablet (Vitamin B-12) docusate sodium 100 mg capsule 100 mg PO BID #60 caps 03/13/24 (Colace) Held on 08/24/24. Instructions: Pt Stopped/Never Started polyethylene glycol 3350 17 17 g PO .Nightly #510 grams 03/22/24 gram/dose oral powder (Miralax) Held on 08/24/24. Instructions: Pt Stopped/Never Started quetiapine 100 mg tablet See Rx Instructions .Route 06/03/24 .COMPLEX #135 tabs Hand Held Nebulizer #1 ea 06/21/24 albuterol sulfate 90 mcg/actuation See Rx Instructions .Route 06/21/24 aerosol inhaler (Ventolin HFA) .COMPLEX #18 grams ferrous sulfate 325 mg (65 mg 325 mg PO DAILY #30 tabs 06/21/24 iron) tablet folic acid 1 mg tablet 1 mg PO DAILY #30 tabs 06/21/24 hydroxyzine HCl 25 mg tablet 25 mg PO TID PRN anxiety #180 tabs 06/21/24 trazodone 50 mg tablet See Rx Instructions .Route 07/01/24 .COMPLEX #135 tabs budesonide-formoterol HFA 160 2 puff inhalation BID #1 inh 07/27/24 mcg-4.5 mcg/actuation aerosol inhaler (Symbicort) ipratropium 0.5 mg-albuterol 3 mg 3 ml UPD Q6H PRN Wheezing #24 pkgs 07/27/24 (2.5 mg base)/3 mL nebulization soln multivitamin (Multiple Vitamins 1 tab PO DAILY #0 tabs 07/27/24 tablet) naltrexone 50 mg tablet 50 mg PO DAILY #30 tabs 07/27/24 topiramate 50 mg tablet 50 mg PO HS #30 tabs 07/27/24 apixaban 5 mg (74 tabs) tablets in See Rx Instructions PO .COMPLEX 07/30/24 a dose pack (Eliquis DVT-PE Treat #74 dose pk 30D Start) Held on 08/06/24. Instructions: Resume on 08/09/24. 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 follow-up with PCP apixaban 5 mg tablet (Eliquis) 5 mg PO BID #180 tabs 08/06/24 metronidazole 500 mg tablet 500 mg PO TID #39 tabs 08/06/24 pantoprazole 40 mg tablet,delayed 40 mg PO BID #60 tabs 08/06/24 release (Protonix) tetracycline 500 mg capsule 500 mg PO QID #52 caps 08/06/24 Allergies Allergy/AdvReac Type Severity Reaction Status Date / Time hydromorphone (From Dilaudid) Allergy Severe Itching Verified 08/24/24 17:03 oxycodone AdvReac Unknown TERRIBLE Verified 08/24/24 17:03 DREAMS General Stated Complaint: GI Bleed ALISTAIR: 3 Review of Systems All systems reviewed & are unremarkable except as noted in HPI and below Exam Narrative Exam Narrative: GENERAL APPEARANCE: Mal-nourished, non-toxic, awake and alert mildly intoxicated, atraumatic, mild acute distress. SKIN: Warm, pink, dry, intact, without rashes/lesions/ulcerations. HEAD: Normocephalic, atraumatic, normal hair distribution for gender/age. EYES: Normal conjunctiva, no exudates on lids/lashes. ENT: Nares patent, no circumoral cyanosis, no facial swelling NECK: Supple, trachea midline, painless cervical ROM. LUNGS/CHEST: Lungs CTA bilaterally- mild expiratory wheeze consistent with COPD, non-labored respirations, normal A/P diameter, symmetrical expansion, no chest wall deformity HEART (CV/PV): Regular rate and rhythm without murmur, no peripheral edema, no JVD. ABDOMEN: Soft, non-distended, no guarding, epigastric and L sided abdominal tenderness. MSK: Normal ROM, no swelling/deformity to bilateral UEs or LEs, moving all extremities without weakness, no cyanosis, spine midline without tenderness, normal curvature. NEURO: Mental Status AAOx4 - alert to person, place, time, events No facial droop, no forehead involvement. Motor: No focal weakness - strength 5/5 in bilateral UEs and LEs, proximal and distal, symmetric. Sensory: sensation intact to light touch globally. Gait normal: patient ambulated without ataxia into ED room. PSYCH: euthymic, cooperative, pleasant, appropriate speech Course Vital Signs Vital signs: Vital Signs Temperature 36.9 C 08/24/24 16:51 Pulse 102 H 08/24/24 16:51 Respiratory Rate 18 08/24/24 16:51 Blood Pressure 86/51 L 08/24/24 16:51 Pulse Oximetry 96 08/24/24 16:51 Temperature 36.9 C 08/24/24 16:51 Temperature Source Oral 08/24/24 16:51 Pulse 102 H 08/24/24 16:51 Respiratory Rate 18 08/24/24 16:51 Blood Pressure 86/51 L 08/24/24 16:51 Blood Pressure Position Sitting 08/24/24 16:51 Pulse Oximetry 96 08/24/24 16:51 Oxygen Delivery Method Room Air 08/24/24 16:51 Oxygen Flow Rate 0 08/24/24 16:51 Pain Level 8 08/24/24 16:51 Medical Decision Making This dictation utilizes [id number] dictation software and may contain unedited grammatical errors. 54 year-old female presents to ED today by EMS with a chief complaint of reported some vomiting of blood and dark material while downtown today with recent diagnosis of GI bleeding, PEs that she is now non-compliant with Eliquis for- as she lost it- but her small subsegmental PEs had subsequently resolved on repeat CTA. Quality described as severe central and L sided abdominal pain, vomiting of dark red/black material, black stools, no radiation to chest pain, fever, shortness of breath, active vomiting, dysuria, headache, altered mentation. Severity is described as severe. Palliating factors include nothing specific - has been taking PeptoBismol daily but states her stools were black before this. Provoking factors include alcohol use disorder, has been drinking a pint or more per day for a long time. Events leading up to the incident/Associated Symptoms: Had a recent EGD that showed H pylori PUD. Patients' medical history: PE, anemia, COPD, hypertension, splenic injury with hematoma, cyst and pseudocyst of pancreas, dysfunctional uterine bleeding. Family and social history: Daily drinker of at least a pint of alcohol, smokes cigarettes, denies other drug use. Pertinent exam findings / vital signs include epigastric tenderness, left-sided abdominal tenderness, mild expiratory wheeze consistent with COPD, hypotensive on arrival 80/50 with tachycardia. Differential / pathologies of concern include GI bleeding, abdominal wall muscle strain, anemia, alcohol intoxication and withdrawal. Diagnostic studies of: - CBC, BMP, liver panel, lactate, PT/PTT, type and screen, magnesium, troponin, BNP, ammonia, TSH, lipase, UA, alcohol level, UDS, blood cultures, CTA abdomen/pelvis with contrast. - CBC shows no white count, shows anemia of 7.3, platelets 288, hematocrit 23.4 - Initial lactate 4.1, reflex to cultures likely elevated in the setting of bleeding - PT/INR/PTT with slight abnormalities as below - Magnesium within normal limits - No obstructive bilirubin pattern on liver panel - BMP shows mild elevation of BUN at 25 likely in the setting of starvation ketosis and dehydration - UA shows no signs of infection - UDS negative - Alcohol level 46.1 - Type and screen A+ with negative antibody screen - Blood cultures pending - CTA of the abdomen and pelvis shows no acute surgical emergent pathology, shows chronic findings near the spleen, no evidence of perforation or significant hemorrhage - Repeat H&H after hours is 7.4, do not suspect severe acute bleeding Interventions of: - 500 mL liter IVF NS bolus, 40 mg IVP Protonix, 1 g IV Tylenol. - Consult hospitalist for admission and observation with likely surgical consult for possible repeat EGD decision to follow. Dr. Gregg accepted at 2200hrs. ED Course/Assessment/Plan: 54-year-old female presents with alcohol use disorder, recent admission with EGD showing H. pylori PUD and GI bleeding with continued hematemesis, she has been taking Pepto-Bismol daily but had black stools prior to this intervention, she likely has upper GI bleeding, do not suspect Boerhaave syndrome or Keke-Huynh tear, she has significant abdominal pain with a negative CTA, unsure of cause whether this is abdominal wall muscle strain from her vomiting versus generalized abdominal pain. I did have the patient admitted due to the complex nature of her case as well as likely repeat CBC to ensure stability tomorrow morning as she was hypotensive on arrival, likely surgical consult in the morning, patient accepted to the service of Dr. Gregg, she has not displayed any active signs of withdrawal here but he we will perform CIWA protocol. Disposition of hematemesis, anemia, alcohol use disorder. Patient verbalized understanding of the plan and return to ED criteria and engaged in shared decision making. Medical Records Medical records reviewed: Yes I reviewed the patient's medical records. Imaging Data Radiologic Study: Attestation: I personally reviewed and interpreted this imaging study as follows: Imaging: CT Scan Radiologist's impression: Exam: CTA Abdomen and Pelvis With Contrast Exam date and time: 08/24/2024 6:43 PM Age: 54 years old Clinical indication: Other: Gi bleeding, epigastric tenderness, L sided tender TECHNIQUE: Imaging protocol: Computed tomographic angiography of the abdomen and pelvis with contrast. Exam focused on the arteries. 3D rendering (Not supervised by radiologist): MIP and/or 3D reconstructed images were created by the technologist. Contrast material: OMNIPAQUE 350; Contrast volume: 90 ml; Contrast route: INTRAVENOUS (IV); COMPARISON: CT THORAX ABD/PEL CTA 08/04/2024 4:21 PM. Report not available. FINDINGS: Aorta: No aortic aneurysm. No aortic dissection. Celiac trunk and mesenteric arteries: No occlusion or significant stenosis. Renal arteries: No occlusion or significant stenosis. Right iliac arteries: No occlusion or significant stenosis. Left iliac arteries: No occlusion or significant stenosis. Liver: No mass. Gallbladder and biliary ducts: Gallbladder contracted. Probable gallstones. Pancreas: Unremarkable. No mass. No ductal dilation. Spleen: There is some mild heterogeneity involving splenic enhancement. There is some abnormal soft tissue stranding at the pancreatic tail and splenic hilar level extending lateral to the spleen. There is some heterogeneity that persists on venous phase delayed imaging with some abnormal persistent soft tissue stranding. These perisplenic changes are stable compared to most recent exam. Adrenal glands: Unremarkable. No mass. Kidneys and ureters: Unremarkable. No solid mass. No hydronephrosis. Stomach and bowel: Mild diverticulosis without acute diverticulitis. No abnormal bowel wall thickening or distension. Appendix: No evidence of appendicitis. Intraperitoneal space: Unremarkable. No free air. No significant fluid collection. Lymph nodes: Unremarkable. No enlarged lymph nodes. Urinary bladder: Unremarkable. No mass. Reproductive: Calcified uterine fibroids. Bones/joints: No acute fracture. Soft tissues: See Spleen finding. IMPRESSION: 1. No evidence for active hemorrhage. 2. Perisplenic soft tissue process, presumed previous posttraumatic change, stable over time. Dictated and Authenticated by: Adry Dsouza MD. Lab Data Lab results reviewed: Yes I reviewed the patient's lab results. Labs: 08/24/24 18:30 Blood Blood Culture - Pending 08/24/24 18:16 Blood Blood Culture - Pending Laboratory Tests Range/Units 08/24/24 08/24/24 08/24/24 17:21 17:36 17:41 WBC (4.4-10.8) 10^3/uL 6.40 RBC (3.93-5.22) 10^6/uL 2.39 L Hgb (11.2-15.7) g/dL 7.3 L Hct (36.0-46.0) % 23.4 L MCV (80-95) fL 98 H MCH (27.0-33.0) pg 30.5 MCHC (32.0-36.0) % 31.2 L RDW (11.7-14.6) % 23.4 H Plt Count (130-400) 10^3/uL 288 MPV (8.0-11.0) fL 10.8 Immature Gran % % 0.8 Neutrophils % % 64.7 Lymphocytes % % 24.4 Monocytes % % 7.3 Eosinophils % % 2.0 Basophils % % 0.8 Nucleated RBC % (0.0-0.3) % 0.0 Absolute Neutrophils (1.2-6.7) 10^3/uL 4.14 Absolute Lymphocytes (1.2-3.4) 10^3/uL 1.56 Absolute Monocytes (0.1-0.8) 10^3/uL 0.47 Absolute Eosinophils (0.0-0.7) 10^3/uL 0.13 Absolute Basophils (0.0-0.2) 10^3/uL 0.05 PT (9.1-11.1) sec 11.4 H INR (0.9-1.1) 1.1 APTT (20.6-30.2) sec 18.5 L VBG Lactate (<or=2.0) mmol/L 4.1 H* Sodium (136-145) mmol/L 138 Potassium (3.5-5.1) mmol/L 4.2 Chloride (98-107) mmol/L 105 Carbon Dioxide (21.0-32.0) mmol/L 19.2 L Anion Gap (3-11) mmol/L 13.8 H BUN (7-18) mg/dL 25 H Creatinine (0.55-1.02) mg/dL 1.0 Est GFR (CKD-EPI 2020) (mL/min/1.73m2) 66.12 Glucose (74-106) mg/dL 86 Calcium (8.5-10.1) mg/dL 7.9 L Magnesium (1.8-2.4) mg/dL 1.8 Total Bilirubin (0.2-1.0) mg/dL 0.2 Conjugated Bilirubin (0.0-0.2) mg/dL 0.1 AST (15-37) U/L 17 ALT (14-59) U/L 13 L Alkaline Phosphatase (46-116) U/L 68 Ammonia (11-32) umol/L < 10 L Troponin I (<or=51) ng/L 10 NT-Pro-B Natriuret Pep (<300) pg/mL 128 Total Protein (6.4-8.2) g/dL 6.0 L Albumin (3.4-5.0) g/dL 2.8 L Lipase (<78) U/L 40 TSH (0.36-3.74) uIU/mL 3.39 Urine Color (Yellow) Yellow Urine Clarity (Clear) Clear Urine pH (5-8) 5.5 Ur Specific [place] (1.005-1.025) <= 1.005 Urine Protein (Neg-Trace) mg/dL Negative Urine Ketones (Negative) mg/dL Negative Urine Blood (Negative) Negative Urine Nitrite (Negative) Negative Urine Bilirubin (Negative) Negative Urine Urobilinogen (Up to 0.2) mg/dL 0.2 Ur Leukocyte Esterase (Negative) Trace H Urine RBC (0-2) HPF Negative Urine WBC (0-5) HPF 0-2 Ur Epithelial Cells (Negative) HPF Many Urine Crystals (Negative) HPF Negative Urine Bacteria (Negative) HPF Negative Urine Casts (Negative) LPF Negative Urine Mucus (Negative) Trace Ur Culture Indicated? No/Sq. Contamination Urine Glucose (Negative) mg/dL Negative Urine Opiates Screen (Negative) Negative Urine Methadone Screen (Negative) Negative Ur Barbiturates Screen (Negative) Negative Ur Tricyclics Screen (Negative) Negative Ur Amphetamines Screen (Negative) Negative U Benzodiazepines Scrn (Negative) Negative Urine Cocaine Screen (Negative) Negative Ur THC Screen (Negative) Negative Ethyl Alcohol (<10) mg/dL 46.1 H ABO/Rh Antibody Screen Range/Units 08/24/24 18:16 WBC (4.4-10.8) 10^3/uL RBC (3.93-5.22) 10^6/uL Hgb (11.2-15.7) g/dL Hct (36.0-46.0) % MCV (80-95) fL MCH (27.0-33.0) pg MCHC (32.0-36.0) % RDW (11.7-14.6) % Plt Count (130-400) 10^3/uL MPV (8.0-11.0) fL Immature Gran % % Neutrophils % % Lymphocytes % % Monocytes % % Eosinophils % % Basophils % % Nucleated RBC % (0.0-0.3) % Absolute Neutrophils (1.2-6.7) 10^3/uL Absolute Lymphocytes (1.2-3.4) 10^3/uL Absolute Monocytes (0.1-0.8) 10^3/uL Absolute Eosinophils (0.0-0.7) 10^3/uL Absolute Basophils (0.0-0.2) 10^3/uL PT (9.1-11.1) sec INR (0.9-1.1) APTT (20.6-30.2) sec VBG Lactate (<or=2.0) mmol/L Sodium (136-145) mmol/L Potassium (3.5-5.1) mmol/L Chloride (98-107) mmol/L Carbon Dioxide (21.0-32.0) mmol/L Anion Gap (3-11) mmol/L BUN (7-18) mg/dL Creatinine (0.55-1.02) mg/dL Est GFR (CKD-EPI 2020) (mL/min/1.73m2) Glucose (74-106) mg/dL Calcium (8.5-10.1) mg/dL Magnesium (1.8-2.4) mg/dL Total Bilirubin (0.2-1.0) mg/dL Conjugated Bilirubin (0.0-0.2) mg/dL AST (15-37) U/L ALT (14-59) U/L Alkaline Phosphatase (46-116) U/L Ammonia (11-32) umol/L Troponin I (<or=51) ng/L NT-Pro-B Natriuret Pep (<300) pg/mL Total Protein (6.4-8.2) g/dL Albumin (3.4-5.0) g/dL Lipase (<78) U/L TSH (0.36-3.74) uIU/mL Urine Color (Yellow) Urine Clarity (Clear) Urine pH (5-8) Ur Specific [place] (1.005-1.025) Urine Protein (Neg-Trace) mg/dL Urine Ketones (Negative) mg/dL Urine Blood (Negative) Urine Nitrite (Negative) Urine Bilirubin (Negative) Urine Urobilinogen (Up to 0.2) mg/dL Ur Leukocyte Esterase (Negative) Urine RBC (0-2) HPF Urine WBC (0-5) HPF Ur Epithelial Cells (Negative) HPF Urine Crystals (Negative) HPF Urine Bacteria (Negative) HPF Urine Casts (Negative) LPF Urine Mucus (Negative) Ur Culture Indicated? Urine Glucose (Negative) mg/dL Urine Opiates Screen (Negative) Urine Methadone Screen (Negative) Ur Barbiturates Screen (Negative) Ur Tricyclics Screen (Negative) Ur Amphetamines Screen (Negative) U Benzodiazepines Scrn (Negative) Urine Cocaine Screen (Negative) Ur THC Screen (Negative) Ethyl Alcohol (<10) mg/dL ABO/Rh A Positive Antibody Screen NEGATIVE Quality:SDOH Health Related Social Needs: Health related social needs risk of homeless food insecurity material hardship house/econ circumstance lonely/isolated Health related social needs details Patient has been living in her car for about 3 weeks now and feeling lonely. PFSH All Active Problems (Updated 08/24/24 @ 22:28 by PIPPA Bates) Alcohol use disorder (Acute) Anemia (Chronic) Hematemesis (Acute) Alcohol intoxication in active alcoholic (Acute) Blood loss anemia (Acute) Alcohol use disorder (Acute) CKD (chronic kidney disease) (Chronic) Anemia (Chronic) Depression with anxiety (Chronic) Abdominal fluid collection (Acute) Dyslipidemia (Acute) Abdominal pain, chronic, left upper quadrant (Acute) Chronic upper gastrointestinal bleeding (Acute) Cyst and pseudocyst of pancreas (Acute) Anemia (Chronic) Anxiety (Chronic) DUB (dysfunctional uterine bleeding) (Acute) Impaired fasting blood sugar (Acute 08/01/05) Obesity, unspecified (Acute 05/31/11) Atypical squamous cells of undetermined significance (ASC-US) on cervical Pap smear (Acute 08/05/09) ASCUS 08/05/09; 05/31/2011 Spinal stenosis of lumbar region (Acute 01/11/10) LS spine surg; Mitzy Hughes, Dr Cortes Tobacco dependence (Acute 08/01/05) Medical History (Updated 08/24/24 @ 22:28 by PIPPA Bates) Pulmonary embolus Helicobacter pylori (H. pylori) Chronic pain (02/20/09) chronic tramadol rx, back pain, sciatica despite LS surg 2009. Depression (04/03/15) Sertaline in the past with good relief of sx but then developed intolerable adverse rxns (nausea, flushing) Started on venlafaxine 03/2015 PHQ9 score = 9, indicating mild depression 03/2015 Anemia COPD (chronic obstructive pulmonary disease) HTN (hypertension), benign Spinal stenosis Lumbar region Surgical History (Updated 08/21/24 @ 13:10 by Helena Mccauley RN) History of esophagogastroduodenoscopy (EGD) (~08/05/24) w bx. per report-negative for H.Pylori Internal injury, spleen, closed with IR embolization Back surgery L5-S1 decompression 2009 Family History Mother , lung cancer at age 50. No problems noted. Father , MVA No problems noted. Other Lung cancer Social History Smoking/Tobacco Use Status: Current every day Tobacco Type: cigarettes Smoking risk assessment performed?: Yes Alcohol Intake: current Alcohol Intake frequency: 3 or more drinks per day Alcohol type: beer and hard liquor Drug use: Never Substance use type: does not use Housing: other Do you feel safe at home: Yes Do you feel safe in your relationship?: Yes
[2024-08-24 17:33] LABS: Abs Immature Grans 0.05 10^3/uL (0.0-0.06); HCT 23.4 % (36.0-46.0); HGB 7.3 g/dL (11.2-15.7); Immature Grans % 0.8 %; MCH 30.5 pg (27.0-33.0); MCHC 31.2 % (32.0-36.0); MCV 98 fL (80-95); MPV 10.8 fL (8.0-11.0); Platelet Count 288 10^3/uL (130-400); RBC 2.39 10^6/uL (3.93-5.22); RDW 23.4 % (11.7-14.6); RDW-SD 80.8 fL; WBC 6.40 10^3/uL (4.4-10.8)
[2024-08-24 17:43] LABS: INR 1.1 (0.9-1.1); PTT Activated 18.5 sec (20.6-30.2); Prothrombin Time 11.4 sec (9.1-11.1)
[2024-08-24] MEDS: Pantoprazole 40 MG VIAL IVP (17:58)
[2024-08-24] MEDS: Normal Saline 500 ML IV (17:58)
[2024-08-24 17:59] LABS: ALT 13 U/L (14-59); AST 17 U/L (15-37); Albumin 2.8 g/dL (3.4-5.0); Alkaline Phosphatase 68 U/L (46-116); Anion Gap 13.8 mmol/L (3-11); BUN 25 mg/dL (7-18); Bilirubin, Direct 0.1 mg/dL (0.0-0.2); Bilirubin, Total 0.2 mg/dL (0.2-1.0); CO2 19.2 mmol/L (21.0-32.0); Calcium 7.9 mg/dL (8.5-10.1); Chloride 105 mmol/L (98-107); Estimated GFR 66.12 (mL/min/1.73m2); Glucose 86 mg/dL (74-106); Lipase 40 U/L (<78); Magnesium 1.8 mg/dL (1.8-2.4); NT-proBNP 128 pg/mL (<300); Potassium 4.2 mmol/L (3.5-5.1); Sodium 138 mmol/L (136-145); TSH (W/Ref FT4) 3.39 uIU/mL (0.36-3.74); Total Protein 6.0 g/dL (6.4-8.2); Troponin I 10 ng/L (<or=51)
[2024-08-24 17:59] LABS: Ammonia < 10 umol/L (11-32)
[2024-08-24 18:31] LABS: Cannabinoids THC Negative (Negative); METHADONE URINE SCREEN Negative (Negative)
[2024-08-24 18:40] LABS: Glucose Negative (Negative)
[2024-08-24 18:47] LABS: RBC Negative HPF (0-2); WBC 0-2 HPF (0-5)
[2024-08-24] MEDS: Normal Saline - Diluent 50 ML VIAL IJ (18:55)
[2024-08-24] MEDS: Omnipaque 350 MG/ML 100 ML BTL 90 ML IJ (18:55)
--- NOTE | 2024-08-24 18:56 | DI.CT_ITS ---
Exam(s) CT ABDOMEN PELVIS CTA EXAM: CT ABDOMEN PELVIS CTA CLINICAL HISTORY: GI bleeding, epigastric tenderness, L sided tender. TECHNIQUE: Imaging Protocol: Axial computed tomography images with coronal and sagittal reformatted images were created and reviewed CONTRAST MATERIAL: Intravenous: Omnipaque 350 Contrast volume:100 ml Oral: None COMPARISON: All prior CT scans dating back to and including CT of 03/16/2021 were reviewed. FINDINGS: ABDOMEN: There is no evidence of active extravasation of intravenous contrast into the bowel lumen to suggest a culprit cited bleeding into the GI tract. Abdominal aorta appears unremarkable. No significant stenosis at the celiac and SMA arteries and the inferior mesenteric artery is also patent. Some calcified plaque-mild is noted on the posterior wall of the proximal left renal artery. There is no obvious renal arteries significant renal artery stenosis. No evidence of abdominal aortic aneurysm nor dissection. Iliac arteries are also intact. LIVER: There are no focal hepatic lesions nor dilatation of intrahepatic ducts. GALLBLADDER/BILIARY: Gallbladder is partially contracted. May contain small calculi. No evidence of acute cholecystitis. CBD is not dilated. PANCREAS: The pancreatic head, uncinate process, neck and body of the pancreas appear unremarkable. Again noted is the previously described and unchanged fluid tract extending from the pancreatic tail to the inferior aspect of the left hemidiaphragm, this sequelae of trauma which occurred in July 2022. The appearance of the previously fractured spleen also appears stable. SPLEEN: Again noted is a fluid tract extending from pancreatic tail towards the spleen and undersurface of the left hemidiaphragm similar to previous CT scans. There is also heterogeneous appearance and heterogeneous enhancement of the spleen again noted and small subcapsular hematoma in the spleen again noted. These unchanged findings are most probably post trauma related. There is no evidence of increasing fluid nor hematoma around the spleen this patient has multiple left-sided rib fractures involving the left 8th, 9th, 10th, 11th ribs, previously documented. There is no pleural effusion. ADRENALS: There are no significant adrenal masses. KIDNEYS: No new significant renal findings. No hydronephrosis.. ABDOMINAL AORTA: Intact. No aneurysm. No dissection. Iliac arteries are also intact. LYMPH NODES: There is no retroperitoneal nor para-aortic adenopathy. No obvious mesenteric masses. ABDOMINAL WALL: No evidence of significant anterior abdominal wall hernia. GI: There is no evidence of bowel obstruction, free air, nor abscess. PELVIS: LYMPH NODES: There is no intrapelvic nor inguinal adenopathy. GI: No evidence of appendicitis.No evidence of sigmoid diverticulitis. URINARY BLADDER: No calculi nor masses evident REPRODUCTIVE: Calcified and partially exophytic uterine fibroids noted which indents the bladder base. No significant ovarian masses and no free fluid in the pelvis. OSSEOUS: No acute fractures. Multiple healing left-sided rib fractures. No transverse process fractures. No lumbar vertebral compression fractures nor listhesis. IMPRESSION: 1. There is no significant intraluminal extravasation of injected IV contrast to identify a culprit source of GI bleeding. 2. Again noted is a fluid tract extending from pancreatic tail towards the spleen and undersurface of the left hemidiaphragm similar to previous CT scans. There is also heterogeneous appearance and heterogeneous enhancement of the spleen again noted and small subcapsular hematoma in the spleen again noted. These unchanged findings are most probably post trauma related. There is no evidence of increasing fluid nor hematoma around the spleen this patient has multiple left-sided rib fractures involving the left 8th, 9th, 10th, 11th ribs, previously documented. There is no pleural effusion. 3. Calcified uterine fibroids 4. Contracted gallbladder. Possible gallstones but no CT evidence of acute cholecystitis. Preliminary virtual Radiology report was reviewed. RADIATION DOSE DELIVERED: 1,240.43mGy.cm Total DLP DATA REPOSITORY: All CT scans at this facility are submitted to the National Radiology Data Registry (NRDR) Dose Index Registry (DIR) with the [employer] (ACR). RADIATION OPTIMIZATION: All CT scans at this facility use at least one of these dose optimization techniques: automated exposure control; mA and/or kV adjustment per patient size (includes targeted exams where dose is matched to clinical indication); or iterative reconstruction.
[2024-08-24] MEDS: ACETAMINOPHEN 1,000 MG/100 ML BAG 400 MG IVPB (18:59)
--- NOTE | 2024-08-24 20:20 | DI.VRAD_ITS ---
PROCEDURE INFORMATION: Exam: CTA Abdomen and Pelvis With Contrast Exam date and time: 08/24/2024 6:43 PM Age: 54 years old Clinical indication: Other: Gi bleeding, epigastric tenderness, L sided tender TECHNIQUE: Imaging protocol: Computed tomographic angiography of the abdomen and pelvis with contrast. Exam focused on the arteries. 3D rendering (Not supervised by radiologist): MIP and/or 3D reconstructed images were created by the technologist. Contrast material: OMNIPAQUE 350; Contrast volume: 90 ml; Contrast route: INTRAVENOUS (IV); COMPARISON: CT THORAX ABD/PEL CTA 08/04/2024 4:21 PM. Report not available. FINDINGS: Aorta: No aortic aneurysm. No aortic dissection. Celiac trunk and mesenteric arteries: No occlusion or significant stenosis. Renal arteries: No occlusion or significant stenosis. Right iliac arteries: No occlusion or significant stenosis. Left iliac arteries: No occlusion or significant stenosis. Liver: No mass. Gallbladder and biliary ducts: Gallbladder contracted. Probable gallstones. Pancreas: Unremarkable. No mass. No ductal dilation. Spleen: There is some mild heterogeneity involving splenic enhancement. There is some abnormal soft tissue stranding at the pancreatic tail and splenic hilar level extending lateral to the spleen. There is some heterogeneity that persists on venous phase delayed imaging with some abnormal persistent soft tissue stranding. These perisplenic changes are stable compared to most recent exam. Adrenal glands: Unremarkable. No mass. Kidneys and ureters: Unremarkable. No solid mass. No hydronephrosis. Stomach and bowel: Mild diverticulosis without acute diverticulitis. No abnormal bowel wall thickening or distension. Appendix: No evidence of appendicitis. Intraperitoneal space: Unremarkable. No free air. No significant fluid collection. Lymph nodes: Unremarkable. No enlarged lymph nodes. Urinary bladder: Unremarkable. No mass. Reproductive: Calcified uterine fibroids. Bones/joints: No acute fracture. Soft tissues: See Spleen finding. IMPRESSION: 1. No evidence for active hemorrhage. 2. Perisplenic soft tissue process, presumed previous posttraumatic change, stable over time. Dictated and Authenticated by: Adry Dsouza MD. Orderin Kayli Cespedes MD
[2024-08-24 21:17] LABS: HCT 24.4 % (36.0-46.0); HGB 7.4 g/dL (11.2-15.7)
--- NOTE | 2024-08-24 22:33 | HPE_ITS ---
Date of service: 08/24/24 Time of Service: 22:33 Assessment and Plan Assessment and plan (1) Alcohol use disorder: Status: Acute Assessment and plan: Patient denies any signs or symptoms of withdrawal at this point but will add CIWA protocol continue with her daily vitamins and thiamine. I will add Ativan just in case she starts withdrawal but then would like to transition to phenobarbital if she needs to go on a protocol. (2) Chronic upper gastrointestinal bleeding: Status: Acute Assessment and plan: Recent EGD was fairly benign. Consider consult to general surgery in the a.m. as the patient is not actively bleeding and appears stable do not feel the need to consult tonight. The patient does start having active bleeding we will have to reconsider. I will put the patient on Protonix IV do not feel the need to do a Protonix drip or octreotide at this point. (3) Hematemesis: Status: Acute Assessment and plan: As above (4) Anemia: Status: Chronic Assessment and plan: In reviewing all labs the patient does have significant iron deficiency as well as folate deficiency. Will restart both of these medications. B12 levels within normal limits (5) Pulmonary embolus: Assessment and plan: Resolved on last CT. Considering her issues with bleeding as well as anemia will not start her on her Eliquis normal or start her on pharmacological DVT prophylaxis. Will be on SCDs (6) COPD (chronic obstructive pulmonary disease): Assessment and plan: Restarted inhalers. Patient is not in exacerbation so will not start steroids. Also, considering her GI issues oral steroids would be somewhat contraindicated (7) Internal injury, spleen, closed: Assessment and plan: Resolved History of Present Illness History of Present Illness Chief Complaint: Hematemesis Narrative: This is a 54-year-old female who has had multiple contacts with the healthcare system recently with the last 1 being 08/08 for alcohol withdrawal and 08/04 through 08/06 for GI bleed. Patient presents today with episodes of hematemesis which were apparently witnessed in the outpatient setting. Workup in the ED did indicate a significant drop in her hemoglobin so the patient was subsequently admitted to the hospitalist service for evaluation and monitoring. My interview with the patient she states that she had 2 episodes of dark in color emesis which she thought was blood. Patient also endorsed worsening black in her stool but this has to be viewed in light of the patient's taking iron. Patient does have a history of alcohol use disorder but states that her last beer was this morning and 3 days prior to that she had not been drinking at all. Patient denies any feelings of alcohol withdrawal at this time. Of note, the patient did have a recent endoscopy procedure on the that was fairly benign with only antral gastritis. Patient does endorse daily tobacco use but denies any other illegal substances. Patient had recently been diagnosed with a pulmonary embolism and was taking Eliquis but on [address] of the chest did not show any PE. Patient also endorses left lower quadrant pain which she says is fairly severe in nature. Patient states the pain is peristaltic in nature. Patient has never had a colonoscopy. Review of Systems All systems reviewed & are unremarkable except as noted in HPI and below PFSH All Active Problems (Updated 08/24/24 @ 22:28 by PIPPA Bates) Alcohol use disorder (Acute) Anemia (Chronic) Hematemesis (Acute) Alcohol intoxication in active alcoholic (Acute) Blood loss anemia (Acute) Alcohol use disorder (Acute) CKD (chronic kidney disease) (Chronic) Anemia (Chronic) Depression with anxiety (Chronic) Abdominal fluid collection (Acute) Dyslipidemia (Acute) Abdominal pain, chronic, left upper quadrant (Acute) Chronic upper gastrointestinal bleeding (Acute) Cyst and pseudocyst of pancreas (Acute) Anemia (Chronic) Anxiety (Chronic) DUB (dysfunctional uterine bleeding) (Acute) Impaired fasting blood sugar (Acute 08/01/05) Obesity, unspecified (Acute 05/31/11) Atypical squamous cells of undetermined significance (ASC-US) on cervical Pap smear (Acute 08/05/09) ASCUS 08/05/09; 05/31/2011 Spinal stenosis of lumbar region (Acute 01/11/10) LS spine surg; Dr Sebastian Walker Tobacco dependence (Acute 08/01/05) Medical History (Updated 08/24/24 @ 22:28 by PIPPA Bates) Pulmonary embolus Helicobacter pylori (H. pylori) Chronic pain (02/20/09) chronic tramadol rx, back pain, sciatica despite LS surg 2009. Depression (04/03/15) Sertaline in the past with good relief of sx but then developed intolerable adverse rxns (nausea, flushing) Started on venlafaxine 03/2015 PHQ9 score = 9, indicating mild depression 03/2015 Anemia COPD (chronic obstructive pulmonary disease) HTN (hypertension), benign Spinal stenosis Lumbar region Surgical History (Updated 08/21/24 @ 13:10 by Helena Mccauley RN) History of esophagogastroduodenoscopy (EGD) (~08/05/24) w bx. per report-negative for H.Pylori Internal injury, spleen, closed with IR embolization Back surgery L5-S1 decompression 2009 Family History Mother , lung cancer at age 50. No problems noted. Father , MVA No problems noted. Other Lung cancer Social History Smoking/Tobacco Use Status: Current every day Tobacco Type: cigarettes Smoking risk assessment performed?: Yes Alcohol Intake: current Alcohol Intake frequency: 3 or more drinks per day Alcohol type: beer and hard liquor Drug use: Never Substance use type: does not use Housing: other Do you feel safe at home: Yes Do you feel safe in your relationship?: Yes Meds Allergies and Home Medications Allergies Allergy/AdvReac Type Severity Reaction Status Date / Time hydromorphone (From Dilaudid) Allergy Severe Itching Verified 08/24/24 17:03 oxycodone AdvReac Unknown TERRIBLE Verified 08/24/24 17:03 DREAMS Home Medications ?Medication ?Instructions ?Recorded ?Confirmed ?Type inhalational spacing device #1 ea 09/28/20 08/24/24 Rx (POCKET CHAMBER spacer) nebulizers #1 ea 03/16/21 08/24/24 Rx citalopram 40 mg tablet 40 mg PO DAILY #90 tabs 10/0 09/1208/24/24 Rx lisinopril 20 mg tablet 20 mg PO DAILY #90 tab-caps 11/27/23 08/24/24 Rx tiotropium bromide 1.25 2 puff inhalation DAILY #4 g franky 11/27/23 08/24/24 Rx mcg/actuation mist for inhalation (Spiriva Respimat) doxepin 25 mg capsule See Rx Instructions .Route 1 03/24/23 08/24/24 Rx .COMPLEX #60 caps cyanocobalamin (vitamin B-12) 500 500 mcg PO DAILY #30 tabs 03/13/24 08/24/24 Rx mcg tablet (Vitamin B-12) docusate sodium 100 mg capsule 100 mg PO BID #60 caps 03/13/24 08/24/24 Rx (Colace) Held on 08/24/24. Instructions: Pt Stopped/Never Started polyethylene glycol 3350 17 17 g PO .Nightly #510 gram s 03/22/24 08/24/24 Rx gram/dose oral powder (Miralax) Held on 08/24/24. Instructions: Pt Stopped/Never Started quetiapine 100 mg tablet See Rx Instructions .Route 0 06/03/24 08/24/24 Rx .COMPLEX #135 tabs Hand Held Nebulizer #1 ea 06/21/24 08/24/24 Rx albuterol sulfate 90 mcg/actuation See Rx Instructions .Route 06/21/24 08/24/24 Rx aerosol inhaler (Ventolin HFA) .COMPLEX #18 grams ferrous sulfate 325 mg (65 mg 325 mg PO DAILY #30 tabs 06/21/24 08/24/24 Rx iron) tablet folic acid 1 mg tablet 1 mg PO DAILY #30 tabs 06/2108/24/24 Rx hydroxyzine HCl 25 mg tablet 25 mg PO TID PRN anxiety #180 tabs 06/21/24 08/24/24 Rx trazodone 50 mg tablet See Rx Instructions .Route 0 07/01/24 08/24/24 Rx .COMPLEX #135 tabs thiamine HCl (vitamin B1) 100 mg 100 mg PO DAILY 07/2408/24/24 History tablet budesonide-formoterol HFA 160 2 puff inhalation BID #1 inh 07/27/24 08/24/24 Rx mcg-4.5 mcg/actuation aerosol inhaler (Symbicort) ipratropium 0.5 mg-albuterol 3 mg 3 ml UPD Q6H PRN Whe ezing #24 pkgs 07/27/24 08/24/24 Rx (2.5 mg base)/3 mL nebulization soln multivitamin (Multiple Vitamins 1 tab PO DAILY #0 tabs 07/27/24 08/24/24 Rx tablet) naltrexone 50 mg tablet 50 mg PO DAILY #30 tabs 06/0 09/1308/24/24 Rx topiramate 50 mg tablet 50 mg PO HS #30 tabs 07/27/2 5 08/24/24 Rx apixaban 5 mg (74 tabs) tablets in See Rx Instructions PO .COMPLEX 07/30/24 08/24/24 Rx a dose pack (Eliquis DVT-PE Treat #74 dose pk 30D Start) Held on 08/06/24. Instructions: Resume on 08/09/24. 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 as ordered [facility] and follow-up with PCP apixaban 5 mg tablet (Eliquis) 5 mg PO BID #180 tabs 0 08/06/24 08/24/24 Rx metronidazole 500 mg tablet 500 mg PO TID #39 tabs 08/24/24 Rx pantoprazole 40 mg tablet,delayed 40 mg PO BID #60 tab s 08/06/24 08/24/24 Rx release (Protonix) tetracycline 500 mg capsule 500 mg PO QID #52 caps 08/24/24 Rx Exam Narrative Exam Narrative: HEENT-normal cephalic atraumatic mucous membranes moist oropharynx is clear Neck-no lymphadenopathy no JVD no thyromegaly Cardiovascular-regular rate and rhythm no murmur rubs or gallops Pulm-bilateral expiratory wheezes but no accessory muscle use Abdomen-tenderness to palpation in the left lower quadrant bowel sounds active x 4 no peritoneal signs Extremities-no cyanosis clubbing or edema bilaterally Neurologic-nonfocal Psych-alert and oriented x 3 [id number] female appears her stated age mild distress only Results Labs 08/24/24 21:10 08/24/24 17:21 Labs: Laboratory Results - last 24 hr 08/24/24 08/24/24 08/24/24 17:21 17:36 17:41 WBC 6.40 RBC 2.39 L Hgb 7.3 L Hct 23.4 L MCV 98 H MCH 30.5 MCHC 31.2 L RDW 23.4 H Plt Count 288 MPV 10.8 Immature Gran % 0.8 Neutrophils % 64.7 Lymphocytes % 24.4 Monocytes % 7.3 Eosinophils % 2.0 Basophils % 0.8 Nucleated RBC % 0.0 Absolute Neutrophils 4.14 Absolute Lymphocytes 1.56 Absolute Monocytes 0.47 Absolute Eosinophils 0.13 Absolute Basophils 0.05 PT 11.4 H INR 1.1 APTT 18.5 L VBG Lactate 4.1 H* Sodium 138 Potassium 4.2 Chloride 105 Carbon Dioxide 19.2 L Anion Gap 13.8 H BUN 25 H Creatinine 1.0 Est GFR (CKD-EPI 2020) 66.12 Glucose 86 Calcium 7.9 L Magnesium 1.8 Total Bilirubin 0.2 Conjugated Bilirubin 0.1 AST 17 ALT 13 L Alkaline Phosphatase 68 Ammonia < 10 L Troponin I 10 NT-Pro-B Natriuret Pep 128 Total Protein 6.0 L Albumin 2.8 L Lipase 40 TSH 3.39 Urine Color Yellow Urine Clarity Clear Urine pH 5.5 Ur Specific [place] <= 1.005 Urine Protein Negative Urine Ketones Negative Urine Blood Negative Urine Nitrite Negative Urine Bilirubin Negative Urine Urobilinogen 0.2 Ur Leukocyte Esterase Trace H Urine RBC Negative Urine WBC 0-2 Ur Epithelial Cells Many Urine Crystals Negative Urine Bacteria Negative Urine Casts Negative Urine Mucus Trace Ur Culture Indicated? No/Sq. Contamination Urine Glucose Negative Urine Opiates Screen Negative Urine Methadone Screen Negative Ur Barbiturates Screen Negative Ur Tricyclics Screen Negative Ur Amphetamines Screen Negative U Benzodiazepines Scrn Negative Urine Cocaine Screen Negative Ur THC Screen Negative Ethyl Alcohol 46.1 H ABO/Rh Antibody Screen 08/24/24 08/24/24 18:16 21:10 WBC RBC Hgb 7.4 L Hct 24.4 L MCV MCH MCHC RDW Plt Count MPV Immature Gran % Neutrophils % Lymphocytes % Monocytes % Eosinophils % Basophils % Nucleated RBC % Absolute Neutrophils Absolute Lymphocytes Absolute Monocytes Absolute Eosinophils Absolute Basophils PT INR APTT VBG Lactate Sodium Potassium Chloride Carbon Dioxide Anion Gap BUN Creatinine Est GFR (CKD-EPI 2020) Glucose Calcium Magnesium Total Bilirubin Conjugated Bilirubin AST ALT Alkaline Phosphatase Ammonia Troponin I NT-Pro-B Natriuret Pep Total Protein Albumin Lipase TSH Urine Color Urine Clarity Urine pH Ur Specific [place] Urine Protein Urine Ketones Urine Blood Urine Nitrite Urine Bilirubin Urine Urobilinogen Ur Leukocyte Esterase Urine RBC Urine WBC Ur Epithelial Cells Urine Crystals Urine Bacteria Urine Casts Urine Mucus Ur Culture Indicated? Urine Glucose Urine Opiates Screen Urine Methadone Screen Ur Barbiturates Screen Ur Tricyclics Screen Ur Amphetamines Screen U Benzodiazepines Scrn Urine Cocaine Screen Ur THC Screen Ethyl Alcohol ABO/Rh A Positive Antibody Screen NEGATIVE Last Vital Signs Temp 36.9 C 08/24/24 16:51 Pulse 96 H 08/24/24 20:16 Resp 16 08/24/24 20:16 BP 109/69 08/24/24 20:16 Pulse Ox 91 L 08/24/24 20:16 Time Spent Time spent with Patient: 40-54 minutes Time was spent: preparing to see the patient(eg.review tests), obtaining and/or reviewing separately otained hiistory, ordering medications,tests, procedures, referring, communicating with other health physician primary care sports medicine, indepentently interpreting results, counseling the patient and care coordination
--- NOTE | 2024-08-24 23:25 | W.PC.ACHO ---
Registration Status: REG ER Primary Language: Preferred Language: Arabic ED Information & Data Chief Complaint GI Bleed 08/24/24 17:29 Triage Note pt brought in by EMS for 08/24/24 16:51 vomiting blood (black in color) once this morning, now c/o 8/10 left lower abd pain. hx of GI bleed, recent dx of pulmonary embolism on 08/08 at this facility, was put on blood thinners but lost them and unable to refill them, believes last dose was 08/09. Medical / Surgical History (Last Reviewed 08/08/24 @ 05:01 by Elio Navarrete MD) Pulmonary embolus Helicobacter pylori (H. pylori) Chronic pain (02/20/09) Depression (04/03/15) Anemia COPD (chronic obstructive pulmonary disease) HTN (hypertension), benign Spinal stenosis (Last Updated 08/21/24 @ 13:10 by Helena Mccauley RN) History of esophagogastroduodenoscopy (EGD) (~08/05/24) Internal injury, spleen, closed Back surgery Most Recent Vital Signs Temperature 36.9 C 08/24/24 16:51 Temperature Source Oral 08/24/24 16:51 Pulse 96 H 08/24/24 20:16 Pulse 96 H 08/24/24 20:16 Respiratory Rate 16 08/24/24 20:16 Blood Pressure 109/69 08/24/24 20:16 Blood Pressure Mean 83 08/24/24 20:16 Blood Pressure Position Sitting 08/24/24 16:51 Pulse Oximetry 91 L 08/24/24 20:16 Oxygen Delivery Method Room Air 08/24/24 16:51 Oxygen Flow Rate 0 08/24/24 16:51 Pain Level 8 08/24/24 16:51 Allergies hydromorphone (From Dilaudid) Allergy (Severe, Verified 08/24/24 17:03) Itching Face swelling, intolerance oxycodone Adverse Reaction (Unknown, Verified 08/24/24 17:03) TERRIBLE DREAMS FROM PERCOCET, intolerance Precautions Isolation Standard precaution 08/24/24 17:01 Active Medications Generic Name Dose Route Start Last Admin Trade Name Freq PRN Reason Stop Dose Admin Iohexol 90 ml 08/24/24 19:00 08/24/24 18:55 Omnipaque 350 Mg/Ml 100 Ml Btl IJ 09/23/24 23:59 90 ml DIRECTED SHASHANK Administration Sodium Chloride 50 ml 08/24/24 19:00 08/24/24 18:55 Normal Saline - Diluent 50 Ml Vial IJ 50 ml .FOR DI USE SHASHANK Administration IV IV Catheter Type [Left Saline Lock Antecubital] IV Catheter Gauge [Left 18 Antecubital] Diet Orders Category Date Time Status Regular/Normal [DIET] Nutrition 08/25/24 Breakfast Ordered Diagnostics 08/24/24 08/24/24 08/24/24 Range/Units 21:10 18:16 17:41 WBC (4.4-10.8) 10^3/uL RBC (3.93-5.22) 10^6/uL Hgb 7.4 L (11.2-15.7) g/dL Hct 24.4 L (36.0-46.0) % MCV (80-95) fL MCH (27.0-33.0) pg MCHC (32.0-36.0) % RDW (11.7-14.6) % Plt Count (130-400) 10^3/uL MPV (8.0-11.0) fL Immature Gran % % Neutrophils % % Lymphocytes % % Monocytes % % Eosinophils % % Basophils % % Nucleated RBC % (0.0-0.3) % Absolute Neutrophils (1.2-6.7) 10^3/uL Absolute Lymphocytes (1.2-3.4) 10^3/uL Absolute Monocytes (0.1-0.8) 10^3/uL Absolute Eosinophils (0.0-0.7) 10^3/uL Absolute Basophils (0.0-0.2) 10^3/uL PT (9.1-11.1) sec INR (0.9-1.1) APTT (20.6-30.2) sec VBG Lactate (<or=2.0) mmol/L Sodium (136-145) mmol/L Potassium (3.5-5.1) mmol/L Chloride (98-107) mmol/L Carbon Dioxide (21.0-32.0) mmol/L Anion Gap (3-11) mmol/L BUN (7-18) mg/dL Creatinine (0.55-1.02) mg/dL Est GFR (CKD-EPI 2020) (mL/min/1.73m2) Glucose (74-106) mg/dL Calcium (8.5-10.1) mg/dL Magnesium (1.8-2.4) mg/dL Total Bilirubin (0.2-1.0) mg/dL Conjugated Bilirubin (0.0-0.2) mg/dL AST (15-37) U/L ALT (14-59) U/L Alkaline Phosphatase (46-116) U/L Ammonia < 10 L (11-32) umol/L Troponin I (<or=51) ng/L NT-Pro-B Natriuret Pep (<300) pg/mL Total Protein (6.4-8.2) g/dL Albumin (3.4-5.0) g/dL Lipase (<78) U/L TSH (0.36-3.74) uIU/mL Urine Color (Yellow) Urine Clarity (Clear) Urine pH (5-8) Ur Specific [place] (1.005-1.025) Urine Protein (Neg-Trace) mg/dL Urine Ketones (Negative) mg/dL Urine Blood (Negative) Urine Nitrite (Negative) Urine Bilirubin (Negative) Urine Urobilinogen (Up to 0.2) mg/dL Ur Leukocyte Esterase (Negative) Urine RBC (0-2) HPF Urine WBC (0-5) HPF Ur Epithelial Cells (Negative) HPF Urine Crystals (Negative) HPF Urine Bacteria (Negative) HPF Urine Casts (Negative) LPF Urine Mucus (Negative) Ur Culture Indicated? Urine Glucose (Negative) mg/dL Urine Opiates Screen (Negative) Urine Methadone Screen (Negative) Ur Barbiturates Screen (Negative) Ur Tricyclics Screen (Negative) Ur Amphetamines Screen (Negative) U Benzodiazepines Scrn (Negative) Urine Cocaine Screen (Negative) Ur THC Screen (Negative) Ethyl Alcohol (<10) mg/dL ABO/Rh A Positive Antibody Screen NEGATIVE 08/24/24 08/24/24 Range/Units 17:36 17:21 WBC 6.40 (4.4-10.8) 10^3/uL RBC 2.39 L (3.93-5.22) 10^6/uL Hgb 7.3 L (11.2-15.7) g/dL Hct 23.4 L (36.0-46.0) % MCV 98 H (80-95) fL MCH 30.5 (27.0-33.0) pg MCHC 31.2 L (32.0-36.0) % RDW 23.4 H (11.7-14.6) % Plt Count 288 (130-400) 10^3/uL MPV 10.8 (8.0-11.0) fL Immature Gran % 0.8 % Neutrophils % 64.7 % Lymphocytes % 24.4 % Monocytes % 7.3 % Eosinophils % 2.0 % Basophils % 0.8 % Nucleated RBC % 0.0 (0.0-0.3) % Absolute Neutrophils 4.14 (1.2-6.7) 10^3/uL Absolute Lymphocytes 1.56 (1.2-3.4) 10^3/uL Absolute Monocytes 0.47 (0.1-0.8) 10^3/uL Absolute Eosinophils 0.13 (0.0-0.7) 10^3/uL Absolute Basophils 0.05 (0.0-0.2) 10^3/uL PT 11.4 H (9.1-11.1) sec INR 1.1 (0.9-1.1) APTT 18.5 L (20.6-30.2) sec VBG Lactate 4.1 H* (<or=2.0) mmol/L Sodium 138 (136-145) mmol/L Potassium 4.2 (3.5-5.1) mmol/L Chloride 105 (98-107) mmol/L Carbon Dioxide 19.2 L (21.0-32.0) mmol/L Anion Gap 13.8 H (3-11) mmol/L BUN 25 H (7-18) mg/dL Creatinine 1.0 (0.55-1.02) mg/dL Est GFR (CKD-EPI 2020) 66.12 (mL/min/1.73m2) Glucose 86 (74-106) mg/dL Calcium 7.9 L (8.5-10.1) mg/dL Magnesium 1.8 (1.8-2.4) mg/dL Total Bilirubin 0.2 (0.2-1.0) mg/dL Conjugated Bilirubin 0.1 (0.0-0.2) mg/dL AST 17 (15-37) U/L ALT 13 L (14-59) U/L Alkaline Phosphatase 68 (46-116) U/L Ammonia (11-32) umol/L Troponin I 10 (<or=51) ng/L NT-Pro-B Natriuret Pep 128 (<300) pg/mL Total Protein 6.0 L (6.4-8.2) g/dL Albumin 2.8 L (3.4-5.0) g/dL Lipase 40 (<78) U/L TSH 3.39 (0.36-3.74) uIU/mL Urine Color Yellow (Yellow) Urine Clarity Clear (Clear) Urine pH 5.5 (5-8) Ur Specific [place] <= 1.005 (1.005-1.025) Urine Protein Negative (Neg-Trace) mg/dL Urine Ketones Negative (Negative) mg/dL Urine Blood Negative (Negative) Urine Nitrite Negative (Negative) Urine Bilirubin Negative (Negative) Urine Urobilinogen 0.2 (Up to 0.2) mg/dL Ur Leukocyte Esterase Trace H (Negative) Urine RBC Negative (0-2) HPF Urine WBC 0-2 (0-5) HPF Ur Epithelial Cells Many (Negative) HPF Urine Crystals Negative (Negative) HPF Urine Bacteria Negative (Negative) HPF Urine Casts Negative (Negative) LPF Urine Mucus Trace (Negative) Ur Culture Indicated? No/Sq. Contamination Urine Glucose Negative (Negative) mg/dL Urine Opiates Screen Negative (Negative) Urine Methadone Screen Negative (Negative) Ur Barbiturates Screen Negative (Negative) Ur Tricyclics Screen Negative (Negative) Ur Amphetamines Screen Negative (Negative) U Benzodiazepines Scrn Negative (Negative) Urine Cocaine Screen Negative (Negative) Ur THC Screen Negative (Negative) Ethyl Alcohol 46.1 H (<10) mg/dL ABO/Rh Antibody Screen 08/24/24 18:30 Blood Culture - Pending Blood 08/24/24 18:16 Blood Culture - Pending Blood Intake and Output - 24 Hour Total 08/24/24 16:45 thru 08/24/24 19:50 Intake Total 600 Balance 600 Weight 79.379 kg Intake: IV 600 Other: Emesis Description None Falls Risk Assessment History of Falls Previous History 08/24/24 18:09 Contributing Factors No Factors 08/24/24 18:09 Ambulatory Aids Independent 08/24/24 18:09 Tubes/Lines None 08/24/24 18:09 Gait Evaluation No gait disturbance 08/24/24 18:09 Cognition No cognitive impairment 08/24/24 18:09 Fall Total Score 15 08/24/24 18:09 Level of Risk Standard/Low Risk 08/24/24 18:09 Problems (Last Reviewed 08/08/24 @ 05:01 by Elio Navarrete MD) Hematemesis (Acute) Alcohol use disorder (Acute) Chronic upper gastrointestinal bleeding (Acute) Anemia (Chronic) v v v v v v v v v Sending and/or Receiving Nurses: Please use comment section below to note any information pertinent to the patient hand-off not included above. Information / Comments: No further questions. Report received from: Magda amos RN
[2024-08-25] MEDS: QUEtiapine 100 MG TAB 150 MG PO ×2 (00:25→20:40)
[2024-08-25] MEDS: Doxepin 25 MG CAP PO (00:26)
[2024-08-25] MEDS: traZODone 50 MG TAB 75 MG PO ×2 (00:27→20:49)
[2024-08-25] MEDS: Lactated Ringers 1,000 ML 75 ML IV ×2 (00:27→17:12)
[2024-08-25 00:41] LABS: HCT 25.5 % (36.0-46.0); HGB 7.6 g/dL (11.2-15.7); MCH 29.7 pg (27.0-33.0); MCHC 29.8 % (32.0-36.0); MCV 100 fL (80-95); MPV 10.6 fL (8.0-11.0); Platelet Count 313 10^3/uL (130-400); RBC 2.56 10^6/uL (3.93-5.22); RDW-SD 83.2 fL; WBC 6.55 10^3/uL (4.4-10.8)
[2024-08-25 00:44] LABS: RDW 23.9 % (11.7-14.6)
[2024-08-25 06:54] LABS: ALT 13 U/L (14-59); AST 9 U/L (15-37); Albumin 2.5 g/dL (3.4-5.0); Alkaline Phosphatase 61 U/L (46-116); Anion Gap 9.9 mmol/L (3-11); BUN 21 mg/dL (7-18); Bilirubin, Total 0.2 mg/dL (0.2-1.0); CO2 24.1 mmol/L (21.0-32.0); Calcium 8.2 mg/dL (8.5-10.1); Chloride 109 mmol/L (98-107); Estimated GFR 86.42 (mL/min/1.73m2); Glucose 96 mg/dL (74-106); Potassium 4.0 mmol/L (3.5-5.1); Sodium 143 mmol/L (136-145); Total Protein 5.5 g/dL (6.4-8.2)
[2024-08-25 07:41] VITALS: BP 104/73; PULSE 90; RESP 16; TEMP 36.5; O2SAT 92
[2024-08-25] MEDS: Tiotropium Bromide-Respimat 10 PUFF INH 2 PUFF IH (11:44)
[2024-08-25] MEDS: Budesonide/Formoterol 160/4.5 6 GM 60 PUFF INH IH ×2 (11:45→20:01)
[2024-08-25] MEDS: Pantoprazole 40 MG VIAL IVP (12:50)
[2024-08-25] MEDS: Normal Saline Flush 10 ML SYR (12:51)
--- NOTE | 2024-08-25 13:40 | W.PM.PROGNOT ---
Date of Service Date of service: 08/25/24 Time of Service: 13:41 Assessment and Plan Assessment and plan (1) Alcohol use disorder: Status: Acute Assessment and plan: Not in active withdrawal currently She has naltrexone, but her biggest issue is that she is unhoused, living in car. Discussed placement in supportive housing but she is discouraged about prospects. Will work with care management (2) Chronic upper gastrointestinal bleeding: Status: Acute Assessment and plan: Recent EGD was fairly benign. Gastritis and h. pylori negative. On IV prantoprazole Repeating endoscopy doesn't make sense. No surgery consult for now. (3) Anemia: Status: Chronic Assessment and plan: In reviewing all labs the patient does have significant iron deficiency as well as folate deficiency. Will restart both of these medications. B12 levels within normal limits recheck iron, if still low consider giving more IV iron (4) Pulmonary embolus: Assessment and plan: On CT 07/28 but resolved on last CT 08/04 despite not taking apixaban regulalry. This and lack of ongoing symptoms suggests to me the 07/28 PEs may have been false positive CT read. Considering her issues with bleeding as well as anemia I agree with not restarting her Eliquis normal or start her on pharmacological DVT prophylaxis. Will be on SCDs (5) COPD (chronic obstructive pulmonary disease): Assessment and plan: Restarted inhalers. No indication for steroids Subjective Subjective Patient reports: voiding w/o difficulty; denies diarrhea, vomiting, shortness of breath or fever Interval history since last seen: Had a BM, was black per patient. No further vomiting. She did eat lunch, feels okay. Exam Narrative Exam Narrative: GEN: Alert and oriented, NAD, no tremor, nl thought process Cardiovascular-regular rate and rhythm no murmur rubs or gallops Pulm-bilateral expiratory wheezes but no accessory muscle use Abdomen-tenderness to palpation in the left lower quadrant bowel sounds active x 4 no peritoneal signs Extremities-no cyanosis clubbing or edema bilaterally Objective Last Vital Signs Temp 36.5 C 08/25/24 07:41 Pulse 90 08/25/24 07:41 Resp 16 08/25/24 07:41 BP 104/73 08/25/24 07:41 Pulse Ox 92 08/25/24 07:41 Laboratory Results - last 24 hr 08/24/24 08/24/24 08/24/24 17:21 17:36 17:41 WBC 6.40 RBC 2.39 L Hgb 7.3 L Hct 23.4 L MCV 98 H MCH 30.5 MCHC 31.2 L RDW 23.4 H Plt Count 288 MPV 10.8 Immature Gran % 0.8 Neutrophils % 64.7 Lymphocytes % 24.4 Monocytes % 7.3 Eosinophils % 2.0 Basophils % 0.8 Nucleated RBC % 0.0 Absolute Neutrophils 4.14 Absolute Lymphocytes 1.56 Absolute Monocytes 0.47 Absolute Eosinophils 0.13 Absolute Basophils 0.05 PT 11.4 H INR 1.1 APTT 18.5 L VBG Lactate 4.1 H* Sodium 138 Potassium 4.2 Chloride 105 Carbon Dioxide 19.2 L Anion Gap 13.8 H BUN 25 H Creatinine 1.0 Est GFR (CKD-EPI 2020) 66.12 Glucose 86 Calcium 7.9 L Magnesium 1.8 Total Bilirubin 0.2 Conjugated Bilirubin 0.1 AST 17 ALT 13 L Alkaline Phosphatase 68 Ammonia < 10 L Troponin I 10 NT-Pro-B Natriuret Pep 128 Total Protein 6.0 L Albumin 2.8 L Lipase 40 TSH 3.39 Urine Color Yellow Urine Clarity Clear Urine pH 5.5 Ur Specific [place] <= 1.005 Urine Protein Negative Urine Ketones Negative Urine Blood Negative Urine Nitrite Negative Urine Bilirubin Negative Urine Urobilinogen 0.2 Ur Leukocyte Esterase Trace H Urine RBC Negative Urine WBC 0-2 Ur Epithelial Cells Many Urine Crystals Negative Urine Bacteria Negative Urine Casts Negative Urine Mucus Trace Ur Culture Indicated? No/Sq. Contamination Urine Glucose Negative Urine Opiates Screen Negative Urine Methadone Screen Negative Ur Barbiturates Screen Negative Ur Tricyclics Screen Negative Ur Amphetamines Screen Negative U Benzodiazepines Scrn Negative Urine Cocaine Screen Negative Ur THC Screen Negative Ethyl Alcohol 46.1 H ABO/Rh Antibody Screen 08/24/24 08/24/24 08/25/24 18:16 21:10 00:30 WBC 6.55 RBC 2.56 L Hgb 7.4 L 7.6 L Hct 24.4 L 25.5 L MCV 100 H MCH 29.7 MCHC 29.8 L RDW 23.9 H Plt Count 313 MPV 10.6 Immature Gran % Neutrophils % Lymphocytes % Monocytes % Eosinophils % Basophils % Nucleated RBC % Absolute Neutrophils Absolute Lymphocytes Absolute Monocytes Absolute Eosinophils Absolute Basophils PT INR APTT VBG Lactate Sodium Potassium Chloride Carbon Dioxide Anion Gap BUN Creatinine Est GFR (CKD-EPI 2020) Glucose Calcium Magnesium Total Bilirubin Conjugated Bilirubin AST ALT Alkaline Phosphatase Ammonia Troponin I NT-Pro-B Natriuret Pep Total Protein Albumin Lipase TSH Urine Color Urine Clarity Urine pH Ur Specific [place] Urine Protein Urine Ketones Urine Blood Urine Nitrite Urine Bilirubin Urine Urobilinogen Ur Leukocyte Esterase Urine RBC Urine WBC Ur Epithelial Cells Urine Crystals Urine Bacteria Urine Casts Urine Mucus Ur Culture Indicated? Urine Glucose Urine Opiates Screen Urine Methadone Screen Ur Barbiturates Screen Ur Tricyclics Screen Ur Amphetamines Screen U Benzodiazepines Scrn Urine Cocaine Screen Ur THC Screen Ethyl Alcohol ABO/Rh A Positive Antibody Screen NEGATIVE 08/25/24 06:07 WBC RBC Hgb Hct MCV MCH MCHC RDW Plt Count MPV Immature Gran % Neutrophils % Lymphocytes % Monocytes % Eosinophils % Basophils % Nucleated RBC % Absolute Neutrophils Absolute Lymphocytes Absolute Monocytes Absolute Eosinophils Absolute Basophils PT INR APTT VBG Lactate Sodium 143 Potassium 4.0 Chloride 109 H Carbon Dioxide 24.1 Anion Gap 9.9 BUN 21 H Creatinine 0.8 Est GFR (CKD-EPI 2020) 86.42 Glucose 96 Calcium 8.2 L Magnesium Total Bilirubin 0.2 Conjugated Bilirubin AST 9 L ALT 13 L Alkaline Phosphatase 61 Ammonia Troponin I NT-Pro-B Natriuret Pep Total Protein 5.5 L Albumin 2.5 L Lipase TSH Urine Color Urine Clarity Urine pH Ur Specific [place] Urine Protein Urine Ketones Urine Blood Urine Nitrite Urine Bilirubin Urine Urobilinogen Ur Leukocyte Esterase Urine RBC Urine WBC Ur Epithelial Cells Urine Crystals Urine Bacteria Urine Casts Urine Mucus Ur Culture Indicated? Urine Glucose Urine Opiates Screen Urine Methadone Screen Ur Barbiturates Screen Ur Tricyclics Screen Ur Amphetamines Screen U Benzodiazepines Scrn Urine Cocaine Screen Ur THC Screen Ethyl Alcohol ABO/Rh Antibody Screen PAWSS Have you Been Recently Intoxicated or Drunk Within the Last 30 days?: No Have you Ever Experienced Previous Episodes of Alcohol Withdrawal?: Yes Have you ever Experienced Withdrawal Seizures?: No Have you ever Experienced Delirium Tremens(DT)s?: Yes Have you ever undergone Alcohol Rehabilitation Treatment (i.e, inpt ot outpatient treatment programs)?: Yes Have you ever Experienced Blackouts?: Yes Have you ever Combined Alcohol with other Downers within the last 90 days?: No Have you ever Combined Alcohol with any other Substance of Abuse during the last 90 days?: No Positive Blood Alcohol level on Presentation? [PCS.BAL]: No Evidence of Increased Autonomic Activity (i.e. HR>120, tremor, sweating, agitation, nausea)?: No Result: 4 Time Spent with Patient Time Spent with Patient: 35-49 minutes Time was spent: preparing to see the patient(eg.review tests), obtaining and/or reviewing separately otained hiistory, ordering medications,tests, procedures, referring, communicating with other health aged or disabled care worker, indepentently interpreting results, counseling the patient and care coordination
[2024-08-25] MEDS: Acetaminophen 325 MG TAB PO (14:29)
[2024-08-25] MEDS: Lisinopril 20 MG TAB PO (14:30)
--- NOTE | 2024-08-25 14:41 | INITIAL_ITS ---
Care Management Initial Asswa Initial Assessment Reason for Hospitalization: GI Bleed Functional Status/Living Situation Patient Presentation: Adrianne was sitting up in bed when CM met with her. She readily engaged with CM, well known to her from her 4 previous admissions in the past 6 weeks or so. Adrianne was again admitted with a GI bleed. She has chronic liver disease and has had issues with GI bleeding of late, often requiring transfusions. Her Hgb has been as low as 6.0 as recently as July. On this admission it has remained between 7.3 and 7.6. She has not needed a transfusion thus far. Adrainne also has a JAYCEE and had been trying to reduce her alcohol intake. 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 and has contacts at [facility]. Adrianne denies recent alcohol intake and her CIWA score has been 0. Town of Residence: [facility] (homeless) Resides with: Alone Significant Other/Family: Out of area Natural Supports: sister Cortez out of state and daughter Lucia. Employment Status: Unemployed Instrumental Activities of Daily Living (ADLs): Independent Medications Medication Management: No Issues/Barriers identified Physical Functioning/Mobility Assistive Device: none Advance Directives Advance Directives: Do you have an Advance Directive: N , 09:23 AD On File at [facility]: N 08/08/13, 09:23 Date Asked 08/24/24 08/24/24, 16:57 AD Date Reviewed COLST On File at [facility] No 08/24/24, 16:57 COLST Date Scanned Code Status Resuscitation Status Full Code Portal Pt does not currently have a portal and education provided: Yes Insurance Coverage/Financial Issues Insurance: Medicaid Care Team Visit Care Team Role Provider Type Slava Garcia MD [facility] STAFF PHYSICIAN Paula Barboza NP Primary Care Provider NURSE PRACTITIONER [facility] Emergency Provider PHYSICIANS ACDS BLOCK 1 OPERATOR Elio Gregg MD Admit Provider [facility] STAFF PHYSICIAN Attending Provider Discharge Potential Discharge Needs: PCP F/U Appt Anticipated Barriers to Discharge: None Identified Patient/Family Education Needs: Review discharge instructions, discuss Ask Me Three Transportation: RCT Plan: Anticipate Adrianne will be discharged home with no new services when medically cleared. She will follow up with her PCP and plan of care and transport via RCT. CM will follow and continue to support diischarge planning. Social Determinants of Health Screening Social Determinants of health last assessed in clinic: 08/25/24 Will the Patient Participate in the Screening?: Yes Do you worry about having a steady place to live?: yes What is your living situation today?: I do not have steady housing Problems where you live: no known problems In the past 12 months, have you had to go without electric, gas, oil or water in your home?: yes 1. Within the past 12 months, we worried whether our food would run out before we got money to buy more.: Never true 2. Within the past 12 months, the food we bought just didn't last and we didn't have money to get more.: Never true Has lack of transportation kept you from medical appointments or from doing things needed for daily living?: yes Has anyone in your life made you feel unsafe or unsupported?: yes How often does anyone, including family and friends, physically hurt you?: Never How often does anyone, including family and friends, insult or talk down to you?: Never How often does anyone, including family and friends, threaten you with harm?: Never How often does anyone, including family and friends, scream or curse at you?: Never HRSN Safety total score: 4 How hard is it for you to pay for the very basics like food, housing, medical care, and heating? Would you say it is:: Very hard Do you want help finding or keeping work or a job?: I do not need or want help If for any reason you need help with day-to-day activities such as bathing, preparing meals, shopping, managing finances, etc., do you get the help you need?: I don?t need any help How often do you feel lonely or isolated from those around you?: Always Do you speak a language other than Yoruba at home?: No Does the patient want assistance with any of the above?: No Health Related Social Needs Health related social needs: housing instability, housed, with risk of homelessness (Z59.811), transportation insecurity (Z59.82), material hardship(utilities) (Z59.12), problems related to housing/economic circumstances (Z59.89) and feeling lonely/isolated (Z60.8) Health related social needs details: Patient is currently living alone in her car. [facility] All Active Problems (Updated 08/24/24 @ 22:28 by PIPPA Bates) Alcohol use disorder (Acute) Anemia (Chronic) Hematemesis (Acute) Alcohol intoxication in active alcoholic (Acute) Blood loss anemia (Acute) Alcohol use disorder (Acute) CKD (chronic kidney disease) (Chronic) Anemia (Chronic) Depression with anxiety (Chronic) Abdominal fluid collection (Acute) Dyslipidemia (Acute) Abdominal pain, chronic, left upper quadrant (Acute) Chronic upper gastrointestinal bleeding (Acute) Cyst and pseudocyst of pancreas (Acute) Anemia (Chronic) Anxiety (Chronic) DUB (dysfunctional uterine bleeding) (Acute) Impaired fasting blood sugar (Acute 08/01/05) Obesity, unspecified (Acute 05/31/11) Atypical squamous cells of undetermined significance (ASC-US) on cervical Pap smear (Acute 08/05/09) ASCUS 08/05/09; 05/31/2011 Spinal stenosis of lumbar region (Acute 01/11/10) LS spine surg; Dr Sebastian Walker Tobacco dependence (Acute 08/01/05) Medical History (Updated 08/24/24 @ 22:28 by PIPPA Bates) Pulmonary embolus Helicobacter pylori (H. pylori) Chronic pain (02/20/09) chronic tramadol rx, back pain, sciatica despite LS surg 2009. Depression (04/03/15) Sertaline in the past with good relief of sx but then developed intolerable adverse rxns (nausea, flushing) Started on venlafaxine 03/2015 PHQ9 score = 9, indicating mild depression 03/2015 Anemia COPD (chronic obstructive pulmonary disease) HTN (hypertension), benign Spinal stenosis Lumbar region Surgical History (Updated 08/21/24 @ 13:10 by Helena Mccauley RN) History of esophagogastroduodenoscopy (EGD) (~08/05/24) w bx. per report-negative for H.Pylori Internal injury, spleen, closed with IR embolization Back surgery L5-S1 decompression 2009 Family History Mother , lung cancer at age 50. No problems noted. Father , MVA No problems noted. Other Lung cancer Social History Smoking/Tobacco Use Status: Current every day Tobacco Type: cigarettes Smoking risk assessment performed?: Yes Alcohol Intake: current Alcohol Intake frequency: 3 or more drinks per day Alcohol type: beer and hard liquor Drug use: Never Substance use type: does not use Housing: other Do you feel safe at home: Yes Do you feel safe in your relationship?: Yes
[2024-08-25 15:23] VITALS: BP 140/83; PULSE 93; RESP 18; TEMP 36.8; O2SAT 97
[2024-08-25] MEDS: Topiramate 50 MG TAB PO (20:39)
[2024-08-25] MEDS: Folic Acid 1 MG TAB PO (20:39)
[2024-08-25] MEDS: Naltrexone 50 MG TAB PO (20:39)
[2024-08-25] MEDS: Ferrous Sulfate 325 MG TAB PO (20:39)
[2024-08-25] MEDS: Propranolol 20 MG TAB PO (20:39)
[2024-08-25] MEDS: Cyanocobalamin 500 MCG TAB PO (20:40)
[2024-08-25] MEDS: Thiamine 100 MG TAB PO (20:40)
[2024-08-25] MEDS: Multivitamin TAB 1 TAB PO (20:40)
[2024-08-25] MEDS: Pantoprazole 40 MG TABCR PO (20:40)
[2024-08-25 21:19] VITALS: BP 102/74; PULSE 75; RESP 16; TEMP 36.5; O2SAT 96
[2024-08-26] VITALS (10 sets, daily range): BP systolic 121–153; BP diastolic 74–94; PULSE 74–87; RESP 14–22; TEMP 36–37.1; O2SAT 90–97
[2024-08-26 06:35] LABS: HCT 21.2 % (36.0-46.0)
[2024-08-26 06:45] LABS: Iron 54 ug/dL (50-170); Total Iron Binding Capacity 194 ug/dL (250-450); Transferrin Sat 28 % (15-50)
[2024-08-26 06:55] LABS: HGB 6.4 g/dL (11.2-15.7)
[2024-08-26] MEDS: Tiotropium Bromide-Respimat 10 PUFF INH 2 PUFF IH (08:09)
[2024-08-26] MEDS: Budesonide/Formoterol 160/4.5 6 GM 60 PUFF INH IH ×2 (08:09→20:20)
[2024-08-26] MEDS: Lisinopril 20 MG TAB PO (08:15)
[2024-08-26] MEDS: Propranolol 20 MG TAB PO ×2 (08:15→19:47)
[2024-08-26] MEDS: Pantoprazole 40 MG TABCR PO ×2 (08:15→19:47)
[2024-08-26] MEDS: Normal Saline Flush 10 ML SYR IVP ×2 (10:31→14:35)
--- NOTE | 2024-08-26 12:00 | PDOC.CMPRO ---
Date of service: 08/26/24 Time of Service: 12:01 Care Management Progress Note Progress Note Text Progress Note Text: Adrianne was sitting up in bed when CM met with her. She engaged easily with CM and appeared to be in good spirits. Adrianne reported that her hemoglobin dropped again. On admission, her Hgb was 7.3 and remained fairly stable (7.4, 7.6) until this morning when it was 6.4. She is now receiving a blood transfusion and her labs will be rechecked in the morning. Adrianne informed CM that Dr. Arellano met with her yesterday and mentioned the possibility of doing a colonoscopy before she is discharged. So far there is no documentation regarding that plan, but the provider has asked for a surgical consultation which will may address that option. Discharge Potential Discharge Needs: PCP F/U Appt Anticipated Barriers to Discharge: None Identified Patient/Family Education Needs: Review discharge instructions, discuss Ask Me Three Transportation: RCT Plan: Anticipate Adrianne will be discharged home with no new services when medically cleared. She will follow up with her PCP and plan of care and transport via RCT. CM will follow and continue to support discharge planning. Social Determinants of Health Screening Social Determinants of health last assessed in clinic: 08/26/24 Will the Patient Participate in the Screening?: Yes Do you worry about having a steady place to live?: yes What is your living situation today?: I do not have steady housing Problems where you live: no known problems In the past 12 months, have you had to go without electric, gas, oil or water in your home?: yes 1. Within the past 12 months, we worried whether our food would run out before we got money to buy more.: Never true 2. Within the past 12 months, the food we bought just didn't last and we didn't have money to get more.: Never true Has lack of transportation kept you from medical appointments or from doing things needed for daily living?: yes Has anyone in your life made you feel unsafe or unsupported?: yes How often does anyone, including family and friends, physically hurt you?: Never How often does anyone, including family and friends, insult or talk down to you?: Never How often does anyone, including family and friends, threaten you with harm?: Never How often does anyone, including family and friends, scream or curse at you?: Never HRSN Safety total score: 4 How hard is it for you to pay for the very basics like food, housing, medical care, and heating? Would you say it is:: Very hard Do you want help finding or keeping work or a job?: I do not need or want help If for any reason you need help with day-to-day activities such as bathing, preparing meals, shopping, managing finances, etc., do you get the help you need?: I don?t need any help How often do you feel lonely or isolated from those around you?: Always Do you speak a language other than Croatian at home?: No Does the patient want assistance with any of the above?: No Health Related Social Needs Health related social needs: housing instability, housed, with risk of homelessness (Z59.811), transportation insecurity (Z59.82), material hardship(utilities) (Z59.12), problems related to housing/economic circumstances (Z59.89) and feeling lonely/isolated (Z60.8) Health related social needs details: Patient is currently living alone in her car.
--- NOTE | 2024-08-26 13:57 | PGE_ITS ---
Date of Service Date of service: 08/26/24 Time of Service: 13:57 Assessment and Plan Assessment and plan (1) Alcohol use disorder: Status: Acute Assessment and plan: Reports minimal alcohol use since last admission. No signs of withdrawal currently She has naltrexone, seems to be helping, but her biggest issue is that she is unhoused, living in car. Discussed placement in supportive housing but she is discouraged about prospects. Will work with care management (2) Chronic upper gastrointestinal bleeding: Status: Acute Assessment and plan: Occult blood positive, but drop suggest relatively slow bleed. CTA on admission not revealing. Recent EGD was fairly benign. Gastritis and h. pylori negative on biopsies, but stool antigen was positive and she was treated. She states she may not have taken the entire antibiotic/bismuth regimen. On IV prantoprazole. Add carafate. Repeating endoscopy doesn't make sense, but she hasn't had colonoscopy. Get surgical consult. Will plan to retreat H. pylori upon discharge. (3) Anemia: Status: Chronic Assessment and plan: Below 7 today, transfuse 1 unit. She does have significant iron deficiency as well as folate deficiency. Will restart both of these medications. B12 levels within normal limits, recheck iron normal after IV iron last visit. Follow (4) Pulmonary embolus: Assessment and plan: On CT 07/28 but resolved on last CT 08/04 despite not taking apixaban regulalry. This and lack of ongoing symptoms suggests to me the 6/8 PEs may have been false positive CT read. Considering her issues with bleeding as well as anemia I agree with not restarting her Eliquis normal or start her on pharmacological DVT prophylaxis. Will be on SCDs (5) COPD (chronic obstructive pulmonary disease): Assessment and plan: Restarted inhalers. No indication for steroids Subjective Subjective Patient reports: tolerating liquids well and voiding w/o difficulty; denies vomiting or fever Interval history since last seen: Events: BM with black color, +FOB She feels okay, but very tired. When walking to bathroom, feels a little SOB a nd lightheaded, feels okay at rest. No chest pain. Exam Narrative Exam Narrative: GEN: Alert and oriented, NAD, no tremor, nl thought process Cardiovascular-regular rate and rhythm no murmur rubs or gallops Pulm-bilateral expiratory wheezes but no accessory muscle use Abdomen-very mild tenderness to palpation in the left lower quadrant bowel sounds active x 4 no peritoneal signs Extremities-no cyanosis clubbing or edema bilaterally Objective Last Vital Signs Temp 36.5 C 08/26/24 13:33 Pulse 86 08/26/24 13:33 Resp 16 08/26/24 13:33 BP 134/94 H 08/26/24 13:33 Pulse Ox 97 08/26/24 13:33 Laboratory Results - last 24 hr 08/24/24 08/26/24 18:16 06:20 Hgb 6.4 L* Hct 21.2 L Iron 54 TIBC 194 L Transferrin % Sat 28 ABO/Rh A Positive Antibody Screen NEGATIVE Crossmatch See Detail PAWSS Have you Been Recently Intoxicated or Drunk Within the Last 30 days?: No Have you Ever Experienced Previous Episodes of Alcohol Withdrawal?: Yes Have you ever Experienced Withdrawal Seizures?: No Have you ever Experienced Delirium Tremens(DT)s?: Yes Have you ever undergone Alcohol Rehabilitation Treatment (i.e, inpt ot outpatient treatment programs)?: Yes Have you ever Experienced Blackouts?: Yes Have you ever Combined Alcohol with other Downers within the last 90 days?: No Have you ever Combined Alcohol with any other Substance of Abuse during the last 90 days?: No Positive Blood Alcohol level on Presentation? [PCS.BAL]: No Evidence of Increased Autonomic Activity (i.e. HR>120, tremor, sweating, agitation, nausea)?: No Result: 4 Time Spent with Patient Time Spent with Patient: 35-49 minutes Time was spent: preparing to see the patient(eg.review tests), obtaining and/or reviewing separately otained hiistory, ordering medications,tests, procedures, referring, communicating with other health transitions rn care coordinator, indepentently interpreting results, counseling the patient and care coordination
[2024-08-26 16:11] LABS: HCT 27.9 % (36.0-46.0); HGB 8.6 g/dL (11.2-15.7)
[2024-08-26] MEDS: Sucralfate 1 GM TAB PO ×2 (16:19→21:21)
[2024-08-26] MEDS: Nicotine 14 MG/24 HR PATCH TD (19:05)
[2024-08-26] MEDS: Naltrexone 50 MG TAB PO (19:47)
[2024-08-26] MEDS: Thiamine 100 MG TAB PO (19:47)
[2024-08-26] MEDS: Ferrous Sulfate 325 MG TAB PO (19:47)
[2024-08-26] MEDS: Topiramate 50 MG TAB PO (19:47)
[2024-08-26] MEDS: Cyanocobalamin 500 MCG TAB PO (19:48)
[2024-08-26] MEDS: Folic Acid 1 MG TAB PO (19:48)
[2024-08-26] MEDS: QUEtiapine 100 MG TAB 150 MG PO (19:48)
[2024-08-26] MEDS: Multivitamin TAB 1 TAB PO (19:48)
[2024-08-26] MEDS: traZODone 50 MG TAB 75 MG PO (19:55)
[2024-08-27 02:30] VITALS: BP 142/96; PULSE 71; RESP 20; TEMP 36.2; O2SAT 96
[2024-08-27] MEDS: Lactated Ringers 1,000 ML 75 ML IV (04:00)
[2024-08-27 06:51] LABS: HCT 26.9 % (36.0-46.0); HGB 8.4 g/dL (11.2-15.7); MCH 30.2 pg (27.0-33.0); MCHC 31.2 % (32.0-36.0); MCV 97 fL (80-95); MPV 10.7 fL (8.0-11.0); Platelet Count 227 10^3/uL (130-400); RBC 2.78 10^6/uL (3.93-5.22); RDW 23.4 % (11.7-14.6); RDW-SD 83.1 fL; WBC 6.40 10^3/uL (4.4-10.8)
[2024-08-27 07:47] VITALS: BP 133/81; PULSE 73; RESP 18; TEMP 36.6; O2SAT 95
[2024-08-27] MEDS: Pantoprazole 40 MG TABCR PO ×2 (07:53→20:22)
[2024-08-27] MEDS: Acetaminophen 325 MG TAB PO (07:53)
[2024-08-27] MEDS: Sucralfate 1 GM TAB PO ×4 (07:53→20:22)
[2024-08-27] MEDS: Propranolol 20 MG TAB PO ×2 (07:53→20:23)
[2024-08-27] MEDS: Lisinopril 20 MG TAB PO (07:53)
[2024-08-27] MEDS: Budesonide/Formoterol 160/4.5 6 GM 60 PUFF INH IH ×2 (08:00→20:03)
[2024-08-27] MEDS: Tiotropium Bromide-Respimat 10 PUFF INH 2 PUFF IH (08:00)
--- NOTE | 2024-08-27 09:03 | W.SURGCON ---
Date of service: 08/27/24 Time of Service: 08:35 Assessment and Plan Assessment and plan (1) Chronic upper gastrointestinal bleeding: Status: Acute Assessment and plan: 54-year-old female presenting with hematemesis and significant anemia. EGD last month with only chronic inactive gastritis. Continues to have dark stools. No prior colonoscopy. Emesis related to left flank pain. History of alcohol related cirrhosis. Denies recent alcohol use other than using a beer to help take pills, although history is questionable - Reasonable to repeat EGD and add colonoscopy - Patient ate today??> clear liquid diet today and tomorrow - Bowel prep tomorrow - Consider Noncon CT for renal stones after IV contrast has cleared - Trend hemoglobin - IV iron - Discussed plan with patient, nurse, internal medicine, multiple disciplinary care team (2) Alcohol use disorder: Status: Acute Assessment and plan: History of alcohol related cirrhosis. Denies recent alcohol use other than using a beer to help take pills, although history is questionable. Overall liver labs and synthetic function appear to be okay - Reiterated importance of alcohol cessation (3) Blood loss anemia: Status: Acute Assessment and plan: Anemia status posttransfusion - Trend hemoglobin - IV iron - Plan for EGD and colonoscopy History of Present Illness Narrative: 54-year-old female with history of alcohol abuse presenting for emesis, concern for hematemesis. Initial hemoglobin in the ED down to 6.5 from 7.6, now up to 8.6 following transfusion. EGD 08/04/2024 with only mild antral chronic inactive gastritis. Patient states she has been having dark stools for the past month. No bright red blood. Dark stools predate restarting iron supplements a few days ago. Nausea and emesis occurred after left lower abdomen/flank pain. Flank pain is positional, often better with sitting up. Colicky in nature. Denies fevers, chills, chest pain, shortness of breath. No blood in urine Review of Systems Constitutional Constitutional: Denies chills, Denies fever(s) and Denies weakness Eyes Eyes: Denies blurry vision and Denies change in vision ENT Ears, Nose, Mouth, and Throat: Denies dizziness Cardiovascular Cardiovascular: Denies chest pain, Denies chest pain at rest, Denies dyspnea and Denies dyspnea on exertion Respiratory Respiratory: Denies cough, Denies dyspnea and Denies dyspnea on exertion Gastrointestinal Gastrointestinal: Reports abdominal pain, Reports melena, Denies diarrhea, Denies loose stools, Reports vomiting and Reports hematemesis Genitourinary Genitourinary: Denies hematuria and Denies difficulty voiding Neurologic Neurologic: Denies dizziness and Denies weakness Hematologic/Lymphatic Hematologic/Lymphatic: Denies easy bleeding, Denies easy bruising and Denies lymphadenopathy PFSH All Active Problems Alcohol use disorder (Acute) Anemia (Chronic) Hematemesis (Acute) Alcohol intoxication in active alcoholic (Acute) Blood loss anemia (Acute) Alcohol use disorder (Acute) CKD (chronic kidney disease) (Chronic) Anemia (Chronic) Depression with anxiety (Chronic) Abdominal fluid collection (Acute) Dyslipidemia (Acute) Abdominal pain, chronic, left upper quadrant (Acute) Chronic upper gastrointestinal bleeding (Acute) Cyst and pseudocyst of pancreas (Acute) Anemia (Chronic) Anxiety (Chronic) DUB (dysfunctional uterine bleeding) (Acute) Impaired fasting blood sugar (Acute 08/01/05) Obesity, unspecified (Acute 05/31/11) Atypical squamous cells of undetermined significance (ASC-US) on cervical Pap smear (Acute 08/05/09) ASCUS 08/05/09; 05/31/2011 Spinal stenosis of lumbar region (Acute 01/11/10) LS spine surg; Dr Sebastian Walker Tobacco dependence (Acute 08/01/05) Medical History Pulmonary embolus Helicobacter pylori (H. pylori) Chronic pain (02/20/09) chronic tramadol rx, back pain, sciatica despite LS surg 2009. Depression (04/03/15) Sertaline in the past with good relief of sx but then developed intolerable adverse rxns (nausea, flushing) Started on venlafaxine 03/2015 PHQ9 score = 9, indicating mild depression 03/2015 Anemia COPD (chronic obstructive pulmonary disease) HTN (hypertension), benign Spinal stenosis Lumbar region Surgical History History of esophagogastroduodenoscopy (EGD) (~08/05/24) w bx. per report-negative for H.Pylori Internal injury, spleen, closed with IR embolization Back surgery L5-S1 decompression 2009 Family History Mother , lung cancer at age 50. No problems noted. Father , MVA No problems noted. Other Lung cancer Social History Smoking/Tobacco Use Status: Current every day Tobacco Type: cigarettes Smoking risk assessment performed?: Yes Alcohol Intake: current Alcohol Intake frequency: 3 or more drinks per day Alcohol type: beer and hard liquor Drug use: Never Substance use type: does not use Housing: other Do you feel safe at home: Yes Do you feel safe in your relationship?: Yes Exam Const General: cooperative, comfortable and no acute distress Eyes EOM: EOM intact bilaterally Resp Effort & Inspection: normal respiratory effort and able to speak in complete sentences Cardio Rate: regular rate GI Inspection: obesity Palpation: soft and tender in the LLQ General: CVA tenderness on the left Skin General skin exam: no rashes or lesions noted, elasticity normal and turgor normal Neuro General: patient alert, patient awake and patient oriented x3 Cognition: normal cognition Speech: speech normal Results Last Vital Signs Temp 36.6 C 08/27/24 07:47 Pulse 73 08/27/24 07:47 Resp 18 08/27/24 07:47 BP 133/81 08/27/24 07:47 Pulse Ox 95 08/27/24 07:47 Labs 08/27/24 05:54 08/25/24 06:07 Labs: Laboratory Results - last 24 hr 08/24/24 08/26/24 08/27/24 18:16 16:00 05:54 WBC 6.40 RBC 2.78 L Hgb 8.6 L D 8.4 L Hct 27.9 L 26.9 L MCV 97 H MCH 30.2 MCHC 31.2 L RDW 23.4 H Plt Count 227 MPV 10.7 ABO/Rh A Positive Antibody Screen NEGATIVE Crossmatch See Detail Imaging Abdomen CT scan report/results: report reviewed and image reviewed
--- NOTE | 2024-08-27 15:15 | PGE_ITS ---
Date of Service Date of service: 08/27/24 Time of Service: 11:00 Assessment and Plan Assessment and plan (1) Chronic upper gastrointestinal bleeding: Status: Acute Assessment and plan: Occult blood positive, but drop suggest relatively slow bleed. CTA on admission not revealing. Recent EGD was fairly benign. Gastritis and h. pylori negative on biopsies, but stool antigen was positive and she was treated. She states she may not have taken the entire antibiotic/bismuth regimen. On IV prantoprazole. Add carafate. Appreciate general surgery recommendations. EGD and colonoscopy . Nulytely prep August 28. (2) Alcohol use disorder: Status: Acute Assessment and plan: Reports minimal alcohol use since last admission. No signs of withdrawal currently She has naltrexone, seems to be helping, but her biggest issue is that she is unhoused, living in car. Discussed placement in supportive housing but she is discouraged about prospects. Will work with care management (3) Anemia: Status: Chronic Assessment and plan: Stable in the ' since August 26 transfusion for hemoglobin 6.4 (4) Pulmonary embolus: Assessment and plan: On CT 07/28 but resolved on last CT 08/04 despite not taking apixaban regulalry. This and lack of ongoing symptoms suggests to me the 07/28 PEs may have been false positive CT read. Considering her issues with bleeding as well as anemia I agree with not restarting her Eliquis normal or start her on pharmacological DVT prophylaxis. Will be on SCDs (5) COPD (chronic obstructive pulmonary disease): Assessment and plan: Restarted inhalers. No indication for steroids Subjective Subjective Interval history since last seen: Ms Rolle is comfortable in bed. Pain has improved. Exam Narrative Exam Narrative: General: This is a pleasant woman in no distress HEENT: Normocephalic, atraumatic CV: RRR Resp: CTAB Abd: NTND +NBS MSK: voluntary motion x4 Neuro: Awake and alert, no focal deficits Objective Last Vital Signs Temp 36.6 C 08/27/24 07:47 Pulse 73 08/27/24 07:47 Resp 18 08/27/24 07:47 BP 133/81 08/27/24 07:47 Pulse Ox 95 08/27/24 07:47 Laboratory Results - last 24 hr 08/26/24 08/27/24 16:00 05:54 WBC 6.40 RBC 2.78 L Hgb 8.6 L D 8.4 L Hct 27.9 L 26.9 L MCV 97 H MCH 30.2 MCHC 31.2 L RDW 23.4 H Plt Count 227 MPV 10.7 PAWSS Have you Been Recently Intoxicated or Drunk Within the Last 30 days?: No Have you Ever Experienced Previous Episodes of Alcohol Withdrawal?: Yes Have you ever Experienced Withdrawal Seizures?: No Have you ever Experienced Delirium Tremens(DT)s?: Yes Have you ever undergone Alcohol Rehabilitation Treatment (i.e, inpt ot outpatient treatment programs)?: Yes Have you ever Experienced Blackouts?: Yes Have you ever Combined Alcohol with other Downers within the last 90 days?: No Have you ever Combined Alcohol with any other Substance of Abuse during the last 90 days?: No Positive Blood Alcohol level on Presentation? [PCS.BAL]: No Evidence of Increased Autonomic Activity (i.e. HR>120, tremor, sweating, agitation, nausea)?: No Result: 4 Time Spent with Patient Time Spent with Patient: 25-34 minutes Time was spent: preparing to see the patient(eg.review tests), obtaining and/or reviewing separately otained hiistory, ordering medications,tests, procedures, referring, communicating with other health wound care technician, indepentently interpreting results, counseling the patient and care coordination
--- NOTE | 2024-08-27 15:31 | CMPROGNOTE_ITS ---
Date of service: 08/27/24 Time of Service: 15:31 Care Management Progress Note Progress Note Text Progress Note Text: Adrianne was sitting up in bed when CM met with her. She stated that she is doing ok today, and that per MD, she will start prep for a colonoscopy tomorrow, and will have the colonoscopy on . Adrianne stated that she requested a certain type of prep which included gatorade, but that her RN informed her that she would be given a gallon of prep to mix with water. CM contacted the pharmacy, who stated that they do not have access to gatorade for an alternative prep, but there is a flavor packet that can be added to the prep to make it more tolerable. CM will continue to follow. Discharge Potential Discharge Needs: PCP F/U Appt Anticipated Barriers to Discharge: None Identified Patient/Family Education Needs: Review discharge instructions, discuss Ask Me Three Transportation: RCT Plan: Anticipate Adrianne will be discharged home with no new services when medically cleared. She will follow up with her PCP and plan of care and transport via RCT. CM will follow and continue to support discharge planning. Social Determinants of Health Screening Social Determinants of health last assessed in clinic: 08/27/24 Will the Patient Participate in the Screening?: Yes Do you worry about having a steady place to live?: yes What is your living s ituation today?: I do not have steady housing Problems where you live: no known problems In the past 12 months, have you had to go without electric, gas, oil or water in your home?: yes 1. Within the past 12 months, we worried whether our food would run out before we got money to buy more.: Don't know/refused 2. Within the past 12 months, the food we bought just didn't last and we didn't have money to get more.: Don't know/refused Has lack of transportation kept you from medical appointments or from doing things needed for daily living?: yes Has anyone in your life made you feel unsafe or unsupported?: yes How often does anyone, including family and friends, physically hurt you?: Never How often does anyone, including family and friends, insult or talk down to you?: Never How often does anyone, including family and friends, threaten you with harm?: Never How often does anyone, including family and friends, scream or curse at you?: Never HRSN Safety total score: 4 How hard is it for you to pay for the very basics like food, housing, medical care, and heating? Would you say it is:: Very hard Do you want help finding or keeping work or a job?: I do not need or want help If for any reason you need help with day-to-day activities such as bathing, preparing meals, shopping, managing finances, etc., do you get the help you need?: I don?t need any help How often do you feel lonely or isolated from those around you?: Always Do you speak a language other than Greenlandic at home?: No Does the patient want assistance with any of the above?: No Health Related Social Needs Health related social needs: housing instability, housed, with risk of homelessn ess (Z59.811), transportation insecurity (Z59.82), material hardship(utilities) (Z59.12), problems related to housing/economic circumstances (Z59.89) and feeling lonely/isolated (Z60.8) Health related social needs details: Patient is currently living alone in her car.
[2024-08-27 15:37] VITALS: BP 146/97; PULSE 69; RESP 18; TEMP 36.8; O2SAT 98
[2024-08-27 19:45] VITALS: BP 146/84; PULSE 76; RESP 20; TEMP 36.8; O2SAT 96
[2024-08-27] MEDS: Folic Acid 1 MG TAB PO (20:22)
[2024-08-27] MEDS: Naltrexone 50 MG TAB PO (20:22)
[2024-08-27] MEDS: Cyanocobalamin 500 MCG TAB PO (20:22)
[2024-08-27] MEDS: Multivitamin TAB 1 TAB PO (20:22)
[2024-08-27] MEDS: Topiramate 50 MG TAB PO (20:23)
[2024-08-27] MEDS: Ferrous Sulfate 325 MG TAB PO (20:23)
[2024-08-27] MEDS: QUEtiapine 100 MG TAB 150 MG PO (20:24)
[2024-08-27] MEDS: Thiamine 100 MG TAB PO (20:24)
[2024-08-27] MEDS: traZODone 50 MG TAB 75 MG PO (20:36)
[2024-08-28 00:22] VITALS: BP 139/79; PULSE 72; RESP 20; TEMP 36.8; O2SAT 95
[2024-08-28 03:59] VITALS: BP 153/90; PULSE 70; RESP 20; TEMP 36.8; O2SAT 95
[2024-08-28] MEDS: Budesonide/Formoterol 160/4.5 6 GM 60 PUFF INH IH ×2 (08:14→19:30)
[2024-08-28] MEDS: Tiotropium Bromide-Respimat 10 PUFF INH 2 PUFF IH (08:14)
[2024-08-28] MEDS: Lactated Ringers 1,000 ML 75 ML IV ×2 (08:28→22:09)
--- NOTE | 2024-08-28 08:55 | PGE_ITS ---
Date of Service Date of service: 08/28/24 Time of Service: 08:55 Assessment and Plan Assessment and plan (1) Chronic upper gastrointestinal bleeding: Status: Acute Assessment and plan: 54-year-old female presenting with hematemesis and significant anemia. EGD last month with only chronic inactive gastritis. Continues to have dark stools. No prior colonoscopy. HGB stable after transfusion. History of alcohol related cirrhosis. CKD. L flank pain improved - EGD and add colonoscopy tomorrow - Bowel prep today - Consider Noncon CT for renal stones after IV contrast has cleared - consider urinealysis - Trend hemoglobin - IV iron - recheck coags in AM Discussed risks, benefits, alternatives, complications with patient. Patient voiced understanding. All questions answered (2) CKD (chronic kidney disease): Status: Chronic Subjective Subjective Interval history since last seen: BM this AM - dark. Started bowel prep. Notes some dizziness. LLQ pain improved, still intermittent and crampy. Vomitted clear liquid without blood last night. Exam Const General: cooperative, comfortable and no acute distress Orientation: alert, awake and oriented x3 Eyes Sclera: sclerae normal EOM: EOM intact bilaterally Resp Effort & Inspection: normal respiratory effort GI Inspection: non-distended Neuro General: patient alert, patient awake and patient oriented x3 Cognition: normal cognition Speech: speech normal Objective Last Vital Signs Temp 36.8 C 08/28/24 03:59 Pulse 70 08/28/24 03:59 Resp 20 08/28/24 03:59 BP 153/90 H 08/28/24 03:59 Pulse Ox 95 08/28/24 03:59 PAWSS Have you Been Recently Intoxicated or Drunk Within the Last 30 days?: No Have you Ever Experienced Previous Episodes of Alcohol Withdrawal?: Yes Have you ever Experienced Withdrawal Seizures?: No Have you ever Experienced Delirium Tremens(DT)s?: Yes Have you ever undergone Alcohol Rehabilitation Treatment (i.e, inpt ot outpatient treatment programs)?: Yes Have you ever Experienced Blackouts?: Yes Have you ever Combined Alcohol with other Downers within the last 90 days?: No Have you ever Combined Alcohol with any other Substance of Abuse during the last 90 days?: No Positive Blood Alcohol level on Presentation? [PCS.BAL]: No Evidence of Increased Autonomic Activity (i.e. HR>120, tremor, sweating, agitation, nausea)?: No Result: 4 Time Spent with Patient Time Spent with Patient: 25-34 minutes Time was spent: preparing to see the patient(eg.review tests), ordering medications,tests, procedures, referring, communicating with other health health care facilities inspector, counseling the patient and care coordination
[2024-08-28] MEDS: Sucralfate 1 GM TAB PO ×2 (09:06→22:03)
[2024-08-28] MEDS: Propranolol 20 MG TAB PO ×2 (09:06→19:52)
[2024-08-28] MEDS: Pantoprazole 40 MG TABCR PO ×2 (09:06→19:53)
[2024-08-28] MEDS: Lisinopril 20 MG TAB PO (09:06)
[2024-08-28] MEDS: Nicotine 14 MG/24 HR PATCH TD (10:46)
--- NOTE | 2024-08-28 11:35 | CMPROGNOTE_ITS ---
Date of service: 08/28/24 Time of Service: 11:35 Care Management Progress Note Progress Note Text Progress Note Text: Adrianne was sitting up in bed when CM met with her. She had started the prep for her colonoscopy which is scheduled for tomorrow and was having some loose stools. dArianne did express concern about how bloody the stool was and was afraid that staff would not be able to tell when the prep was completed. She was told she would have to keep prepping until her bowel movements were clear. Adrianne had a court date set for Monday08/26/24. CM helped her file for a continuance and was notified today that it has been postponed until 09/02/24. CM informed Adrianne and provided her with the documentation from the court. Discharge Potential Discharge Needs: PCP F/U Appt Anticipated Barriers to Discharge: None Identified Patient/Family Education Needs: Review discharge instructions, discuss Ask Me Three Transportation: RCT Plan: Anticipate Adrianne will be discharged home with no new services when medically cleared. She will follow up with her PCP and plan of care and transport via RCT. CM will follow and continue to support discharge planning. Social Determinants of Health Screening Social Determinants of health last assessed in clinic: 08/28/24 Will the Patient Participate in the Screening?: Yes Do you worry about having a steady place to live?: yes What is your living situation today?: I do not have steady housing Problems where you live: no known problems In the past 12 months, have you had to go without electric, gas, oil or water in your home?: yes 1. Within the past 12 months, we worried whether our food would run out before we got money to buy more.: Never true 2. Within the past 12 months, the food we bought just didn't last and we didn't have money to get more.: Never true Has lack of transportation kept you from medical appointments or from doing things needed for daily living?: yes Has anyone in your life made you feel unsafe or unsupported?: yes How often does anyone, including family and friends, physically hurt you?: Never How often does anyone, including family and friends, insult or talk down to you?: Never How often does anyone, including family and friends, threaten you with harm?: Never How often does anyone, including family and friends, scream or curse at you?: Never HRSN Safety total score: 4 How hard is it for you to pay for the very basics like food, housing, medical care, and heating? Would you say it is:: Very hard Do you want help finding or keeping work or a job?: I do not need or want help If for any reason you need help with day-to-day activities such as bathing, preparing meals, shopping, managing finances, etc., do you get the help you need?: I don?t need any help How often do you feel lonely or isolated from those around you?: Always Do you speak a language other than Italian at home?: No Does the patient want assistance with any of the above?: No Health Related Social Needs Health related social needs: housing instability, housed, with risk of homeles sness (Z59.811), transportation insecurity (Z59.82), material hardship(utilities) (Z59.12), problems related to housing/economic circumstances (Z59.89) and feeling lonely/isolated (Z60.8) Health related social needs details: Patient is currently living alone in her car.
[2024-08-28 12:21] LABS: HCT 25.6 % (36.0-46.0); HGB 8.1 g/dL (11.2-15.7); MCH 31.0 pg (27.0-33.0); MCHC 31.6 % (32.0-36.0); MCV 98 fL (80-95); MPV 10.8 fL (8.0-11.0); Platelet Count 236 10^3/uL (130-400); RBC 2.61 10^6/uL (3.93-5.22); RDW 22.7 % (11.7-14.6); RDW-SD 82.3 fL; WBC 6.61 10^3/uL (4.4-10.8)
--- NOTE | 2024-08-28 14:15 | W.PM.PROGNOT ---
Date of Service Date of service: 08/28/24 Time of Service: 08:00 Assessment and Plan Assessment and plan (1) Chronic upper gastrointestinal bleeding: Status: Acute Assessment and plan: Occult blood positive, but drop suggest relatively slow bleed. CTA on admission not revealing. Recent EGD was fairly benign. Gastritis and h. pylori negative on biopsies, but stool antigen was positive and she was treated. She states she may not have taken the entire antibiotic/bismuth regimen. On IV pantoprazole. Add carafate. Appreciate general surgery recommendations. EGD and colonoscopy . Nulytely prep August 28. (2) Alcohol use disorder: Status: Acute Assessment and plan: Reports minimal alcohol use since last admission. No signs of withdrawal currently She has naltrexone, seems to be helping, but her biggest issue is that she is unhoused, living in car. Discussed placement in supportive housing but she is discouraged about prospects. Will work with care management (3) Blood loss anemia: Status: Acute Assessment and plan: Stable in the 's since August 26 transfusion for hemoglobin 6.4 (4) Pulmonary embolus: Assessment and plan: On CT 07/28 but resolved on last CT 08/04 despite not taking apixaban regulalry. This and lack of ongoing symptoms suggests to me the 07/28 PEs may have been false positive CT read. Considering her issues with bleeding as well as anemia I agree with not restarting her Eliquis normal or start her on pharmacological DVT prophylaxis. Will be on SCDs (5) COPD (chronic obstructive pulmonary disease): Assessment and plan: Restarted inhalers. No indication for steroids Subjective Subjective Interval history since last seen: Ms. Rolle is comfortable, sitting up on the edge of the bed. She continues to have BRBPR in the toilet as has been the case for 3 months. Awaiting EGD and colonoscopy August 29, prep in process today. Exam Narrative Exam Narrative: General: This is a pleasant woman in no distress HEENT: Normocephalic, atraumatic CV: RRR Resp: CTAB Abd: NTND +NBS MSK: voluntary motion x4 Neuro: Awake and alert, no focal deficits Objective Last Vital Signs Temp 36.8 C 08/28/24 03:59 Pulse 70 08/28/24 03:59 Resp 20 08/28/24 03:59 BP 153/90 H 08/28/24 03:59 Pulse Ox 95 08/28/24 03:59 Laboratory Results - last 24 hr 08/28/24 12:11 WBC 6.61 RBC 2.61 L Hgb 8.1 L Hct 25.6 L MCV 98 H MCH 31.0 MCHC 31.6 L RDW 22.7 H Plt Count 236 MPV 10.8 PAWSS Have you Been Recently Intoxicated or Drunk Within the Last 30 days?: No Have you Ever Experienced Previous Episodes of Alcohol Withdrawal?: Yes Have you ever Experienced Withdrawal Seizures?: No Have you ever Experienced Delirium Tremens(DT)s?: Yes Have you ever undergone Alcohol Rehabilitation Treatment (i.e, inpt ot outpatient treatment programs)?: Yes Have you ever Experienced Blackouts?: Yes Have you ever Combined Alcohol with other Downers within the last 90 days?: No Have you ever Combined Alcohol with any other Substance of Abuse during the last 90 days?: No Positive Blood Alcohol level on Presentation? [PCS.BAL]: No Evidence of Increased Autonomic Activity (i.e. HR>120, tremor, sweating, agitation, nausea)?: No Result: 4 Time Spent with Patient Time Spent with Patient: 25-34 minutes Time was spent: preparing to see the patient(eg.review tests), obtaining and/or reviewing separately otained hiistory, ordering medications,tests, procedures, referring, communicating with other health career development manager, indepentently interpreting results, counseling the patient and care coordination
[2024-08-28] MEDS: Acetaminophen 325 MG TAB PO (15:08)
[2024-08-28 15:39] VITALS: BP 153/90; PULSE 66; RESP 16; TEMP 36.5; O2SAT 99
[2024-08-28] MEDS: Topiramate 50 MG TAB PO (19:52)
[2024-08-28] MEDS: QUEtiapine 100 MG TAB 150 MG PO (19:53)
[2024-08-28] MEDS: Thiamine 100 MG TAB PO (19:53)
[2024-08-28] MEDS: Cyanocobalamin 500 MCG TAB PO (19:53)
[2024-08-28] MEDS: Folic Acid 1 MG TAB PO (19:53)
[2024-08-28] MEDS: Multivitamin TAB 1 TAB PO (19:53)
[2024-08-28] MEDS: Naltrexone 50 MG TAB PO (19:54)
[2024-08-28] MEDS: Ferrous Sulfate 325 MG TAB PO (19:54)
[2024-08-28] MEDS: traZODone 50 MG TAB 75 MG PO (20:01)
[2024-08-29] VITALS (16 sets, daily range): BP systolic 60–169; BP diastolic 43–93; PULSE 61–77; RESP 14–30; TEMP 36.2–36.7; O2SAT 92–100; BMI 31.6
[2024-08-29 08:12] LABS: INR 1.1 (0.9-1.1); Prothrombin Time 10.6 sec (9.1-11.1)
[2024-08-29 08:19] LABS: ALT 14 U/L (14-59); Albumin 2.3 g/dL (3.4-5.0); Alkaline Phosphatase 50 U/L (46-116); Anion Gap 9.5 mmol/L (3-11); BUN 7 mg/dL (7-18); Bilirubin, Total 0.2 mg/dL (0.2-1.0); CO2 25.5 mmol/L (21.0-32.0); Calcium 8.1 mg/dL (8.5-10.1); Chloride 109 mmol/L (98-107); Estimated GFR 101.44 (mL/min/1.73m2); Glucose 92 mg/dL (74-106); Potassium 3.7 mmol/L (3.5-5.1); Sodium 144 mmol/L (136-145); Total Protein 5.4 g/dL (6.4-8.2)
[2024-08-29 08:21] LABS: HCT 24.4 % (36.0-46.0); HGB 7.5 g/dL (11.2-15.7); MCH 29.9 pg (27.0-33.0); MCHC 30.7 % (32.0-36.0); MCV 97 fL (80-95); MPV 11.1 fL (8.0-11.0); Platelet Count 216 10^3/uL (130-400); RBC 2.51 10^6/uL (3.93-5.22); RDW-SD 79.8 fL; WBC 4.44 10^3/uL (4.4-10.8)
[2024-08-29 08:42] LABS: AST 18 U/L (15-37)
--- NOTE | 2024-08-29 09:22 | PGE_ITS ---
Date of Service Date of service: 08/29/24 Time of Service: 09:22 Assessment and Plan Assessment and plan (1) Chronic upper gastrointestinal bleeding: Status: Acute Assessment and plan: Tolerating bowel prep. Having clear stools. - OR today for EGD and colonoscopy - Reviewed all risk, benefits, alternatives, complications with patient. Patient voiced understanding. All questions answered (2) Anemia: Status: Chronic Assessment and plan: Hemoglobin 6.5 on admission, up to 8.5 after transfusion. Down to 7.5 today. Likely equilibrating, although patient states she had blood in her stools with bowel prep. - Colonoscopy today - Continue iron supplementation - Give iron with vitamin C if being taken oral (3) Anxiety: Status: Chronic Subjective Subjective Interval history since last seen: Tolerated prep. Having clear liquid stools. Hgb down to 7.5. Hungry Exam Const General: cooperative, comfortable and no acute distress Resp Effort & Inspection: normal respiratory effort Cardio Rate: regular rate GI Inspection: normal to inspection Skin General skin exam: turgor normal and no jaundice Objective Last Vital Signs Temp 36.7 C 08/29/24 00:05 Pulse 76 08/29/24 00:05 Resp 20 08/29/24 00:05 BP 115/93 H 08/29/24 00:05 Pulse Ox 92 08/29/24 00:05 Laboratory Results - last 24 hr 08/28/24 08/29/24 12:11 07:42 WBC 6.61 RBC 2.61 L Hgb 8.1 L Hct 25.6 L MCV 98 H MCH 31.0 MCHC 31.6 L RDW 22.7 H Plt Count 236 MPV 10.8 PT 10.6 INR 1.1 Sodium 144 Potassium 3.7 Chloride 109 H Carbon Dioxide 25.5 Anion Gap 9.5 BUN 7 Creatinine 0.7 Est GFR (CKD-EPI 2020) 101.44 Glucose 92 Calcium 8.1 L Total Bilirubin 0.2 AST 18 ALT 14 Alkaline Phosphatase 50 Total Protein 5.4 L Albumin 2.3 L PAWSS Have you Been Recently Intoxicated or Drunk Within the Last 30 days?: No Have you Ever Experienced Previous Episodes of Alcohol Withdrawal?: Yes Have you ever Experienced Withdrawal Seizures?: No Have you ever Experienced Delirium Tremens(DT)s?: Yes Have you ever undergone Alcohol Rehabilitation Treatment (i.e, inpt ot outpatient treatment programs)?: Yes Have you ever Experienced Blackouts?: Yes Have you ever Combined Alcohol with other Downers within the last 90 days?: No Have you ever Combined Alcohol with any other Substance of Abuse during the last 90 days?: No Positive Blood Alcohol level on Presentation? [PCS.BAL]: No Evidence of Increased Autonomic Activity (i.e. HR>120, tremor, sweating, agitation, nausea)?: No Result: 4 Time Spent with Patient Time Spent with Patient: <25 minutes Time was spent: preparing to see the patient(eg.review tests), ordering medications,tests, procedures, referring, communicating with other health personal care service provider, counseling the patient and care coordination
--- NOTE | 2024-08-29 09:26 | CMPROGNOTE_ITS ---
Date of service: 08/29/24 Time of Service: 09:26 Care Management Progress Note Progress Note Text Progress Note Text: Adrianne went to the OR for a colonoscopy and endoscopy today. She returned late in the day and informed CM that she was feeling a bit light headed. There was some discussion about discharge this evening however given the late hour and her lightheadedness, she will remain hospitalized overnight. CM has been working with [employer] to try to get Adrianne a new phone. Hopefully this will be able to happen prior to discharge. Discharge Potential Discharge Needs: PCP F/U Appt and Surgical F/U Appt Anticipated Barriers to Discharge: None Identified Patient/Family Education Needs: Review discharge instructions, discuss Ask Me Three Transportation: RCT Plan: Anticipate Adrianne will be discharged home with no new services when medically cleared. She will follow up with her PCP and plan of care and transport via RCT. CM will follow and continue to support discharge planning. Social Determinants of Health Screening Social Determinants of health last assessed in clinic: 08/29/24 Will the Patient Participate in the Screening?: Yes Do you worry about having a steady place to live?: yes What is your living situation today?: I do not have steady housing Problems where you live: no known problems In the past 12 months, have you had to go without electric, gas, oil or water in your home?: yes 1. Within the past 12 months, we worried whether our food would run out before we got money to buy more.: Never true 2. Within the past 12 months, the food we bought just didn't last and we didn't have money to get more.: Never true Has lack of transportation kept you from medical appointments or from doing things needed for daily living?: yes Has anyone in your life made you feel unsafe or unsupported?: yes How often does anyone, including family and friends, physically hurt you?: Never How often does anyone, including family and friends, insult or talk down to you?: Never How often does anyone, including family and friends, threaten you with harm?: Never How often does anyone, including family and friends, scream or curse at you?: Never HRSN Safety total score: 4 How hard is it for you to pay for the very basics like food, housing, medical care, and heating? Would you say it is:: Very hard Do you want help finding or keeping work or a job?: I do not need or want help If for any reason you need help with day-to-day activities such as bathing, preparing meals, shopping, managing finances, etc., do you get the help you need ?: I don?t need any help How often do you feel lonely or isolated from those around you?: Always Do you speak a language other than Cymraes at home?: No Does the patient want assistance with any of the above?: No Health Related Social Needs Health related social needs: housing instability, housed, with risk of homelessness (Z59.811), transportation insecurity (Z59.82), material hardship(utilities) (Z59.12), problems related to housing/economic circumstances (Z59.89) and feeling lonely/isolated (Z60.8) Health related social needs details: Patient is currently living alone in her car.
[2024-08-29 09:29] LABS: RDW 22.2 % (11.7-14.6)
[2024-08-29] MEDS: Propranolol 20 MG TAB PO ×2 (09:37→19:41)
[2024-08-29] MEDS: Pantoprazole 40 MG TABCR PO ×2 (09:37→19:42)
[2024-08-29] MEDS: Nicotine 14 MG/24 HR PATCH TD (09:37)
[2024-08-29] MEDS: Tiotropium Bromide-Respimat 10 PUFF INH 2 PUFF IH (10:29)
[2024-08-29] MEDS: Budesonide/Formoterol 160/4.5 6 GM 60 PUFF INH IH ×2 (10:29→22:38)
--- NOTE | 2024-08-29 10:45 | W.ANESPRE ---
General Info Date of Service Date Performed: 08/29/24 Height: 5 ft 3 in Weight: 80.9 kg Body Mass Index (BMI): 31.6 Surgical Procedure: Operation Date: 08/29/24 11:05 Proposed Procedure Side Surgeon p Colonoscopy/Gastroscopy Afshin Valadez, Meds Allergies and Home Medications Allergies Allergy/AdvReac Type Severity Reaction Status Date / Time hydromorphone (From Dilaudid) Allergy Severe Itching Verified 08/24/24 17:03 oxycodone AdvReac Unknown TERRIBLE Verified 08/24/24 17:03 DREAMS Home Medication ?Medication ?Instructions ?Recorded inhalational spacing device #1 ea 09/28/20 (POCKET CHAMBER spacer) nebulizers #1 ea 03/16/21 lisinopril 20 mg tablet 20 mg PO DAILY #90 tab-caps 11/27/23 tiotropium bromide 1.25 2 puff inhalation DAILY #4 grams 11/27/23 mcg/actuation mist for inhalation (Spiriva Respimat) quetiapine 100 mg tablet See Rx Instructions .Route 06/03/24 .COMPLEX #135 tabs Hand Held Nebulizer #1 ea 06/21/24 albuterol sulfate 90 mcg/actuation See Rx Instructions .Route 06/21/24 aerosol inhaler (Ventolin HFA) .COMPLEX #18 grams ferrous sulfate 325 mg (65 mg 325 mg PO DAILY #30 tabs 06/21/24 iron) tablet folic acid 1 mg tablet 1 mg PO DAILY #30 tabs 06/21/24 hydroxyzine HCl 25 mg tablet 25 mg PO TID PRN anxiety #180 tabs 06/21/24 trazodone 50 mg tablet See Rx Instructions .Route 07/01/24 .COMPLEX #135 tabs thiamine HCl (vitamin B1) 100 mg 100 mg PO DAILY 07/24/24 tablet budesonide-formoterol HFA 160 2 puff inhalation BID #1 inh 07/27/24 mcg-4.5 mcg/actuation aerosol inhaler (Symbicort) ipratropium 0.5 mg-albuterol 3 mg 3 ml UPD Q6H PRN Wheezing #24 pkgs 07/27/24 (2.5 mg base)/3 mL nebulization soln multivitamin (Multiple Vitamins 1 tab PO DAILY #0 tabs 07/27/24 tablet) naltrexone 50 mg tablet 50 mg PO DAILY #30 tabs 07/27/24 topiramate 50 mg tablet 50 mg PO HS #30 tabs 07/27/24 apixaban 5 mg tablet (Eliquis) 5 mg PO BID #180 tabs 08/06/24 metronidazole 500 mg tablet 500 mg PO TID #39 tabs 08/06/24 pantoprazole 40 mg tablet,delayed 40 mg PO BID #60 tabs 08/06/24 release (Protonix) tetracycline 500 mg capsule 500 mg PO QID #52 caps 08/06/24 propranolol 20 mg tablet 20 mg PO BID 08/25/24 Current Visit Medications: Current Medications Generic Name Dose Route Start Last Admin Trade Name Freq PRN Reason Stop Dose Admin Acetaminophen 0 mg 08/24/24 22:22 08/28/24 15:08 Acetaminophen 325 Mg Tab PO 650 mg Q4H PRN PRN Administration Al Hydrox/Mg Hydrox/Simethicone 30 ml 08/24/24 22:22 Mylanta Suspension 30 Ml Cup PO Q2H PRN PRN Albuterol Sulfate 2 puff 08/24/24 23:37 Albuterol Hfa 8 Gm 60 Puff Inh IH Q4H PRN PRN Albuterol/Ipratropium 3 ml 08/24/24 23:37 Albuterol/Ipratropium 3 Ml Upd Vial UPD Q6H PRN PRN Wheezing Budesonide/Formoterol Fumarate 2 puff 08/25/24 08:30 08/29/24 10:29 Budesonide/Formoterol 160/4.5 6 Gm 60 Puff Inh IH 2 puffs BID SHASHANK Administration Cyanocobalamin 500 mcg 08/25/24 20:00 08/28/24 19:53 Cyanocobalamin 500 Mcg Tab PO 500 mcg HS SHASHANK Administration Docusate Sodium 100 mg 08/24/24 22:22 Docusate Sodium 100 Mg Cap PO TID PRN PRN Ferrous Sulfate 325 mg 08/25/24 20:00 08/28/24 19:54 Ferrous Sulfate 325 Mg Tab PO 325 mg HS SHASHANK Administration Folic Acid 1 mg 08/25/24 20:00 08/28/24 19:53 Folic Acid 1 Mg Tab PO 1 mg HS SHASHANK Administration Hydroxyzine HCl 25 mg 08/24/24 23:37 Hydroxyzine Hcl 25 Mg Tab PO TID PRN PRN Anxiety Ringer's Solution 1,000 mls @ 75 mls/hr 08/24/24 22:30 08/28/24 22:09 IV 75 mls/hr INFUSION SHASHANK Administration Lisinopril 20 mg 08/25/24 13:00 08/28/24 09:06 Lisinopril 20 Mg Tab PO 20 mg DAILY SHASHANK Administration Magnesium Hydroxide 30 ml 08/24/24 22:22 Milk Of Magnesia 30 Ml Cup PO DAILY PRN PRN Multivitamins 1 tab 08/25/24 20:00 08/28/24 19:53 Multivitamin Tab PO 1 tab HS SHASHANK Administration Naltrexone HCl 50 mg 08/25/24 20:00 08/28/24 19:54 Naltrexone 50 Mg Tab PO 50 mg HS SHASHANK Administration Nicotine 14 mg 08/24/24 22:46 08/29/24 09:37 Nicotine 14 Mg/24 Hr Patch TD 14 mg DAILY PRN PRN Administration Pantoprazole Sodium 40 mg 08/25/24 20:00 08/29/24 09:37 Pantoprazole 40 Mg Tabcr PO 40 mg BID SHASHANK Administration Polyethylene Glycol 17 gm 08/24/24 22:22 Polyethylene Glycol 3350 17 Gm Packet PO DAILY PRN PRN Constipation Polyethylene Glycol 17 gm 08/25/24 20:00 08/28/24 20:03 Polyethylene Glycol 3350 17 Gm Packet PO Not Given HS SHASHANK Propranolol HCl 20 mg 08/25/24 20:00 08/29/24 09:37 Propranolol 20 Mg Tab PO 20 mg BID SHASHANK Administration Quetiapine Fumarate 150 mg 08/24/24 23:37 08/28/24 19:53 Quetiapine 100 Mg Tab PO 150 mg HS SHASHANK Administration Sodium Chloride 0 ml 08/26/24 09:31 08/26/24 14:35 Normal Saline Flush 10 Ml Syr IVP 10 ml PRN PRN Administration Sodium Cl/Sod Bicarb/Potass Cl/PEG 4,000 ml 08/28/24 09:00 08/28/24 08:02 Gavilyte-G 4000 Ml Btl PO 4,000 ml DIRECTED SHASHANK Administration Sucralfate 1 gm 08/26/24 16:30 08/28/24 22:03 Sucralfate 1 Gm Tab PO 1 gm AC & HS SHASHANK Administration Thiamine HCl 100 mg 08/25/24 20:00 08/28/24 19:53 Thiamine 100 Mg Tab PO 100 mg HS SHASHANK Administration Tiotropium [place] 2 puff 08/25/24 08:30 08/29/24 10:29 Tiotropium [place]-Respimat 10 Puff Inh IH 2 puff DAILY SHASHANK Administration Topiramate 50 mg 08/25/24 20:00 08/28/24 19:52 Topiramate 50 Mg Tab PO 50 mg HS SHASHANK Administration Trazodone HCl 75 mg 08/24/24 23:37 08/28/24 20:01 Trazodone 50 Mg Tab PO 75 mg HS PRN PRN Administration Insomnia PFSH Active Problems Active Problems: Problem Status Onset Code Alcohol use disorder Acute F10.90 Anemia Chronic D64.9 Hematemesis Acute K92.0 Alcohol intoxication in active alcoholic Acute F10.129 Blood loss anemia Acute D50.0 Alcohol use disorder Acute F10.90 CKD (chronic kidney disease) Chronic N18.9 Anemia Chronic D64.9 Depression with anxiety Chronic F41.8 Abdominal fluid collection Acute R18.8 Dyslipidemia Acute E78.5 Abdominal pain, chronic, left upper quadrant Acute R10.12, G89.29 Chronic upper gastrointestinal bleeding Acute K92.2 Cyst and pseudocyst of pancreas Acute K86.2, K86.3 Anemia Chronic D64.9 Anxiety Chronic F41.9 DUB (dysfunctional uterine bleeding) Acute N93.8 Impaired fasting blood sugar Acute 08/01/05 R73.01 Obesity, unspecified Acute 05/31/11 E66.9 Atypical squamous cells of undetermined significance (ASC-US) on cervical Pap smear Acute 08/05/09 R87.610 Spinal stenosis of lumbar region Acute 01/11/10 M48.061 Tobacco dependence Acute 08/01/05 F17.200 Medical History Medical History Pulmonary embolus Helicobacter pylori (H. pylori) Chronic pain (02/20/09) chronic tramadol rx, back pain, sciatica despite LS surg 2009. Depression (04/03/15) Sertaline in the past with good relief of sx but then developed intolerable adverse rxns (nausea, flushing) Started on venlafaxine 03/2015 PHQ9 score = 9, indicating mild depression 03/2015 Anemia COPD (chronic obstructive pulmonary disease) HTN (hypertension), benign Spinal stenosis Lumbar region Surgical History Surgical History History of esophagogastroduodenoscopy (EGD) (~08/05/24) w bx. per report-negative for H.Pylori Internal injury, spleen, closed with IR embolization Back surgery L5-S1 decompression 2009 Tobacco Smoking/Tobacco Use Status: Current every day Tobacco Type: cigarettes Alcohol Alcohol Intake: current Alcohol intake frequency: 3 or more drinks per day Alcohol type: beer and hard liquor Substance Use Substance use: Never Substance use type: does not use Vital Signs and Lab Results Vital Signs Most Recent Vital Signs in EMR: Most Recent Vital Signs Temp Pulse Resp BP Pulse Ox 36.7 C 71 16 159/92 H 97 08/29/24 07:45 08/29/24 07:45 08/29/24 07:45 08/29/24 07:45 08/29/24 10:30 Lab Results 08/29/24 07:42 08/29/24 07:42 Blood Type / Crossmatch: Antibody Screen NEGATIVE 08/24/24 Crossmatch See Detail 08/24/24 Complete Blood Count: WBC, (4.4-10.8) 4.44 10^3/uL Today, 07:42 RBC, (3.93-5.22) 2.51 10^6/uL L Today, 07:42 Hgb, (11.2-15.7) 7.5 g/dL L Today, 07:42 Hct, (36.0-46.0) 24.4 % L Today, 07:42 Plt Count, (130-400) 216 10^3/uL Today, 07:42 VBG Lactate, (<or=2.0) 4.1 mmol/L H* 08/24/24, 17:21 Complete Metabolic Panel: Sodium, (136-145) 144 mmol/L Today, 07:42 Potassium, (3.5-5.1) 3.7 mmol/L Today, 07:42 Chloride, (98-107) 109 mmol/L H Today, 07:42 Carbon Dioxide, (21.0-32.0) 25.5 mmol/L Today, 07:42 BUN, (7-18) 7 mg/dL Today, 07:42 Creatinine, (0.55-1.02) 0.7 mg/dL Today, 07:42 Est GFR (CKD-EPI 2020), (mL/min/1.73m2) 101.44 Today, 07:42 Magnesium, (1.8-2.4) 1.8 mg/dL 08/24/24, 17:21 Calcium, (8.5-10.1) 8.1 mg/dL L Today, 07:42 Albumin, (3.4-5.0) 2.3 g/dL L Today, 07:42 Glucose, (74-106) 92 mg/dL Today, 07:42 Liver Function Panel: ALT, (14-59) 14 U/L Today, 07:42 AST, (15-37) 18 U/L Today, 07:42 Coagulation Panel: INR, (0.9-1.1) 1.1 Today, 07: PT, (9.1-11.1) 10.6 sec Today, 07: APTT, (20.6-30.2) 18.5 sec L 08/24/24, 17:21 Cardiac Panel: Troponin I, (<or=51) 10 ng/L 08/24/24 NT-Pro-B Natriuret Pep, (<300) 128 pg/mL 08/24/24 Pancreas Panel: Lipase, (<78) 40 U/L 08/24/24, 17:21 Thyroid Panel: TSH, (0.36-3.74) 3.39 uIU/mL 08/24/24, 17:21 Toxicology Panel: Ethyl Alcohol, (<10) 46.1 mg/dL H 08/24/24, 17:21 Ur Amphetamines Screen, (Negative) Negative 08/24/24, 17:36 U Benzodiazepines Scrn, (Negative) Negative 08/24/24, 17:36 Ur Barbiturates Screen, (Negative) Negative 08/24/24, 17:36 Urine Cocaine Screen, (Negative) Negative 08/24/24, 17:36 Urine Methadone Screen, (Negative) Negative 08/24/24, 17:36 Urine Opiates Screen, (Negative) Negative 08/24/24, 17:36 Ur Tricyclics Screen, (Negative) Negative 08/24/24, 17:36 Ur THC Screen, (Negative) Negative 08/24/24, 17:36 Imaging and Studies Imaging and Studies Study information below may be from another EMR and interpreted by another provider. Please see original notes in EMR for more complete details. EKG Summary: 08/04/24: Exam: Resting ECG Reason for Exam: SOB Patient Location: E HR:97 bpm ECG Measurements Heart Rate 97 AXIS OH 157 P 54 QRSd 98 QRS 55 QT 369 T40 QTc 470 Conclusion Sinus rhythm, rate 97 No interval abnormalities No STEMI No significant changes from priors Echocardiogram Summary: 07/28/2024: LVEF 60%, RV not well seen, trace tricuspid regurgitation CT Summary: 08/04/24: Chest/Abdomen/Pelvis CTA: IMPRESSION: 1. There is no significant intraluminal extravasation of injected IV contrast to identify a source site of GI bleeding. 2. No evidence of bowel obstruction, free air, nor ischemic appearing bowel loops. 3. There is a tract of fluid extending from the pancreatic tail towards the spleen and to the undersurface of the left hemidiaphragm, similar to previous and there is also heterogeneous appearance and enhancement of the spleen and small subcapsular hematoma in the spleen again noted. These findings are unchanged from recent studies and may be posttrauma related and indirectly related to the multiple left-sided rib fractures. The remainder of the pancreas appears unremarkable. 4. The previously present pulmonary emboli in the subsegmental bilateral lower lobe pulmonary arteries seen on this study of July 28, 2024 are not seen on today's study. These have most probably resolved. There are no new intraluminal filling defects. No evidence of pulmonary infarction, infiltrates, nor pleural effusions. 5.. The previously described fractures of the left 8th, 9th, 10th, and 11th ribs appear unchanged. 6. Appears unremarkable with no aneurysms and no evidence of dissection nor prominent atherosclerotic disease. Anesthesia Assessment and Plan Anesthesia History Personal History: No History of Anesthesia Complications Family History: No Family History of Anesthesia Complications Exercise Tolerance Exercise Tolerance: Metabolic Equivalents>4 Pertinent Negatives Pertinent Negatives: No Symptoms of GERD Cardiac & Pulmonary Exam Cardiac Exam: Normal S1/S2 Heart Sounds Pulmonary Exam: Rhonchi Present (Bilat. rhonchi, clears with breathing treatment. Does not use oxygen at home nor CPAP. Chronic COPD/Smoker) Implantable Cardiac Device Does patient have a Pacemaker or an ICD?: No Airway Exam Known Difficult Airway: No Mallampati Class: 2 Mouth Opening: Normal (> 3cm) Thyromental Distance: Greater than 3 cm Neck Range of Motion: Full ROM Neck Circumference: Normal Teeth Condition: Normal Dentition ASA Classification ASA Score: ASA 3 Emergency Case?: No NPO Status NPO Status: NPO Clears >2 hours, Solids >8 hours ((+) Bowel prep) Anesthesia Plan Resuscitation Status: Full Code Anesthesia Technique: General Anesthesia Airway Planned: Natural Airway Monitors Used: Standard Monitors
[2024-08-29] MEDS: Lactated Ringers 1,000 ML 30 ML IV (11:29)
--- NOTE | 2024-08-29 11:50 | BOWEL_PTH ---
PATIENT: Pratima Rolle LOC: [id number]#:[id number] AGE/SX: 54/F ROOM: 230 RE08/24/[address]: HARSH: 1970 BED: A DIS: 08/31/2024 SPEC #: [id number] RECD: 08/29/24 18:05 STATUS: LETTY RE #: [id number] HARISH: 08/29/24 11:[address]: Afshin Valadez DEPT: Surgical Specimen RECD BY: Jacki Malagon ENTERED: 08/29/24 18:07 SP TYPE: Bowel OTHR DR: PIPPA Mccrary Tamsin Wendy Frye, MD Amira Ghazali, MD Philip Hamby Kaplin, Aviva W Robert G Kloos, DO Carl B Petri, MD Schroer, Peter Brian Smith, MD Joyce Vitale, ANALY Tissues: 1 - BIOPSY BOWEL 2 - BIOPSY BOWEL 3 - BIOPSY BOWEL 4 - STOMACH BIOPSY 5 - STOMACH BIOPSY 6 - ESOPHAGUS BIOPSY 7 - BIOPSY BOWEL 8 - BIOPSY BOWEL Procedures: GROSS AND MICRO LEVEL 4 IMMUNOPEROXIDASE STAIN Comments: [id number]
--- NOTE | 2024-08-29 13:10 | W.PM.OP ---
Operative Note Operative Note PRE-OP DIAGNOSIS: Anemia GI bleed POST-OP DIAGNOSIS: same Duodenal polyp x3 Gastric polyp Esophageal plaques Rectal polyp x2 PROCEDURE: esophagogastroduodenoscopy Duodenal polypectomy with cold forcep x 3 Gastric polypectomy with cold forcep x 1 Colonoscopy Rectal polyp ectomy with cold forcep x 2 SURGEON: Afshin Valadez Refer to Anesthesia Record ESTIMATED BLOOD LOSS: 0.56 PATHOLOGY: other (1. duodenal polyp 2. duodenal polyp 3. Duodenal polyp 4. Antral biopsy 5. gastric polyp 6. Esophageal plaques 7. Rectal polyp 8. Rectal polyp ) COMPLICATIONS: None Patient was transported to: PACU Patient's condition: stable Implants: None Indications: 54-year-old female with history of anemia status post EGD 1 month ago. Returns with continued melena and hemoglobin down to 6.7. Patient received transfusion but hemoglobin continued to decrease. No prior colonoscopy Findings: 1. 1 mm polyp second portion of the duodenum lateral wall 2. 3 mm polyp second portion of duodenum lateral wall 3. 1 mm polyp first portion duodenum 4. 1 mm polyp gastric fundus 5. No new blood, old blood, stigmata of bleeding in the stomach or the duodenum 6. Melena in the distal ileum and ascending colon. No evidence of fresh bleeding. No identified source 7. 1 mm polyp rectum 8. 1 mm polyp rectum 9. External hemorrhoids Procedure Description: After consent was confirmed on the chart, patient was taken to the procedural suite. Anesthesia was induced and bite-block was placed. Timeout was undertaken confirming proper patient, procedure, indication, location with all in attendance and agreement. Endoscope was advanced through the bite-block and the oropharynx, down the esophagus, into the stomach and then advanced to the second portion of duodenum. There were 2 polyps on the lateral wall of the second portion of the duodenum which were biopsied and removed piecemeal with cold forceps. There was no evidence of ulcer in the duodenal bulb but there was a 1 mm polyp which was again removed with cold forcep biopsies. Antrum appeared slightly injected and biopsies were taken to rule out H. pylori. Retroflexion did not reveal any cardiac or GE junction lesions. A small polyp was biopsied in the fundus using cold forceps. GE junction was approximately 37 cm from the lips. The mid and distal esophagus had multiple white superficial plaques, which were biopsied. Scope was then withdrawn and patient was repositioned After again confirming consent, external visualization demonstrated significant hemorrhoids and skin tags. No masses were felt on digital rectal exam. Scope was then advanced through the anus, sigmoid colon, ascending, transverse, descending colon. In the descending colon there was black tarry material seen. After irrigation, the appendiceal orifice and ileocecal valve were identified. Scope was advanced into the ileocecal valve and terminal ileum where more dark tarry material was found. No lesions or source of bleed were identified within the small bowel. Colon was insufflated and scope was then slowly withdrawn through the cecum, ascending colon, transverse colon, descending colon, sigmoid colon and into the rectum. Care was taken to inspect all rolle of the colon. 2 small hyperplastic polyps were seen in the rectum and biopsied with cold forceps. Scope was retroflexed and there were no perianal abnormality noted. Scope was then fully removed. Patient appeared to tolerate the procedure well and no complications were appreciated. All sites of biopsies were monitored and no ongoing bleeding was noted. Pictures were taken during the course of the procedure and printed for the patient's chart. Patient was taken to PACU for recovery and then transferred back to the floor Afshin Valadez DO, ALBERTO Date of Procedure: 08/29/24
--- NOTE | 2024-08-29 14:00 | W.ANESPOSTOP ---
Postoperative Evaluation Date, Time and Location Date Performed: 08/29/24 Time Performed: 13:45 Patient Location: PACU Vital Signs Most Recent Imported Vital Signs: Most Recent Vital Signs Temp Pulse Resp BP Pulse Ox 36.2 C L 61 16 169/92 H 95 08/29/24 13:41 08/29/24 13:41 08/29/24 13:41 08/29/24 13:41 08/29/24 13:11 Pain Score Most Recent Pain Score: Most Recent Pain Score Pain Level [Abdomen] 0 08/29/24 09:00 Pain Level 5 08/29/24 13:41 Assessment Mental Status: Awake (Alert & Oriented to Patient Baseline) Airway and Respiratory Function: Patent airway with normal (patient baseline) respiratory exam Cardiovascular Function: Hemodynamically Stable Hydration Status: Adequately Hydrated Nausea & Vomiting: No Nausea or Vomiting Pain: Pt. Denies Any Pain Peripheral Nerve Block: Patient did not receive a nerve block
[2024-08-29] MEDS: Lisinopril 20 MG TAB PO (14:16)
[2024-08-29] MEDS: Sucralfate 1 GM TAB PO ×2 (16:02→22:31)
[2024-08-29] MEDS: Acetaminophen 325 MG TAB PO (16:02)
--- NOTE | 2024-08-29 16:50 | PGE_ITS ---
Date of Service Date of service: 08/29/24 Time of Service: 16:00 Assessment and Plan Assessment and plan (1) Chronic upper gastrointestinal bleeding: Status: Acute Assessment and plan: Occult blood positive, but drop suggest relatively slow bleed. CTA on admission not revealing. Recent EGD was fairly benign. Gastritis and h. pylori negative on biopsies, but stool antigen was positive and she was treated. She states she may not have taken the entire antibiotic/bismuth regimen. On IV pantoprazole. Add carafate. Appreciate general surgery recommendations. Nulytely prep August 28. EGD/colonoscopy revealed multiple colon polyps but no clear source of bleeding other than external hemorrhoids Antral biopsy done for H pylori WALDEMAR (2) Alcohol use disorder: Status: Acute Assessment and plan: Reports minimal alcohol use since last admission. No signs of withdrawal currently She has naltrexone, seems to be helping, but her biggest issue is that she is unhoused, living in car. Discussed placement in supportive housing but she is discouraged about prospects . Will work with care management (3) Blood loss anemia: Status: Acute Assessment and plan: Stable in the 's since August 26 transfusion for hemoglobin 6.4 (4) Pulmonary embolus: Assessment and plan: On CT 07/28 but resolved on last CT 08/04 despite not taking apixaban regulalry. This and lack of ongoing symptoms suggests to me the 07/28 PEs may have been false positive CT read. Considering her issues with bleeding as well as anemia I agree with not restarting her Eliquis normal or start her on pharmacological DVT prophylaxis. Will be on SCDs (5) COPD (chronic obstructive pulmonary disease): Assessment and plan: Restarted inhalers. No indication for steroids Exam Narrative Exam Narrative: General: This is a pleasant woman in no distress HEENT: Normocephalic, atraumatic CV: RRR Resp: CTAB Abd: NTND +NBS MSK: voluntary motion x4 Neuro: Awake and alert, no focal deficits Objective Last Vital Signs Temp 36.2 C L 08/29/24 14:11 Pulse 76 08/29/24 14:11 Resp 16 08/29/24 14:11 BP 158/90 H 08/29/24 14:11 Pulse Ox 97 08/29/24 14:11 Laboratory Results - last 24 hr 08/29/24 07:42 WBC 4.44 RBC 2.51 L Hgb 7.5 L Hct 24.4 L MCV 97 H MCH 29.9 MCHC 30.7 L RDW 22.2 H Plt Count 216 MPV 11.1 H PT 10.6 INR 1.1 Sodium 144 Potassium 3.7 Chloride 109 H Carbon Dioxide 25.5 Anion Gap 9.5 BUN 7 Creatinine 0.7 Est GFR (CKD-EPI 2020) 101.44 Glucose 92 Calcium 8.1 L Total Bilirubin 0.2 AST 18 ALT 14 Alkaline Phosphatase 50 Total Protein 5.4 L Albumin 2.3 L PAWSS Have you Been Recently Intoxicated or Drunk Within the Last 30 days?: No Have you Ever Experienced Previous Episodes of Alcohol Withdrawal?: Yes Have you ever Experienced Withdrawal Seizures?: No Have you ever Experienced Delirium Tremens(DT)s?: Yes Have you ever undergone Alcohol Rehabilitation Treatment (i.e, inpt ot outpatient treatment programs)?: Yes Have you ever Experienced Blackouts?: Yes Have you ever Combined Alcohol with other Downers within the last 90 days?: No Have you ever Combined Alcohol with any other Substance of Abuse during the last 90 days?: No Positive Blood Alcohol level on Presentation? [PCS.BAL]: No Evidence of Increased Autonomic Activity (i.e. HR>120, tremor, sweating, agita tion, nausea)?: No Result: 4 Time Spent with Patient Time Spent with Patient: 25-34 minutes Time was spent: preparing to see the patient(eg.review tests), obtaining and/or reviewing separately otained hiistory, ordering medications,tests, procedures, referring, communicating with other health health care recruiter, indepentently interpreting results, counseling the patient and care coordination
[2024-08-29] MEDS: Ondansetron 4 MG/2 ML VIAL IVP (19:19)
[2024-08-29] MEDS: hydrOXYzine HCL 25 MG TAB PO (19:19)
[2024-08-29] MEDS: Normal Saline Flush 10 ML SYR IVP ×2 (19:20→19:40)
[2024-08-29] MEDS: MORPHine 2 MG/ML SYR IVP (19:39)
[2024-08-29] MEDS: QUEtiapine 100 MG TAB 150 MG PO (19:41)
[2024-08-29] MEDS: Folic Acid 1 MG TAB PO (19:41)
[2024-08-29] MEDS: Naltrexone 50 MG TAB PO (19:41)
[2024-08-29] MEDS: Cyanocobalamin 500 MCG TAB PO (19:41)
[2024-08-29] MEDS: Ferrous Sulfate 325 MG TAB PO (19:41)
[2024-08-29] MEDS: Multivitamin TAB 1 TAB PO (19:42)
[2024-08-29] MEDS: Thiamine 100 MG TAB PO (19:42)
[2024-08-29] MEDS: Topiramate 50 MG TAB PO (19:42)
[2024-08-29] MEDS: traZODone 50 MG TAB 75 MG PO (22:31)
--- NOTE | 2024-08-30 | DI.US_ITS ---
Exam(s) US RENAL EXAM: US RENAL CLINICAL HISTORY: query stones TECHNIQUE: Ultrasound of both kidneys performed using standard protocol. COMPARISON: US POCUS EXAM from 08/05/[address] ABDOMEN PELVIS CTA from 08/24/2024 FINDINGS: RIGHT KIDNEY: Measures 9.8 cm in length. No cysts evident. Normal cortical thickness and corticomedullary differentiation .No solid masses No intrarenal calculi nor hydronephrosis. LEFT KIDNEY: Measures 4 cm in length. No cysts evident. Normal cortical thickness and corticomedullary differentiaion. No solids masses. No intrarenal calculi nor hydonephrosis. URINARY BLADDER: Prevoid volume is 87 cc Postvoid volume is 0 cc No evidence of bladder mass nor diverticuli. Ureterovesical jets: Both jets were not identified. IMPRESSION: 1. No significant ultrasound findings in the kidneys. 2. No hydronephrosis. 3. No obvious abnormality in the urinary bladder. Please note that recent CT scan revealed multiple calcified uterine fibroids, DATA REPOSITORY:
[2024-08-30 06:54] LABS: HCT 27.7 % (36.0-46.0); HGB 8.5 g/dL (11.2-15.7); MCH 30.5 pg (27.0-33.0); MCHC 30.7 % (32.0-36.0); MCV 99 fL (80-95); MPV 10.4 fL (8.0-11.0); Platelet Count 256 10^3/uL (130-400); RBC 2.79 10^6/uL (3.93-5.22); RDW-SD 79.7 fL; WBC 4.97 10^3/uL (4.4-10.8)
[2024-08-30 07:12] LABS: ALT 16 U/L (14-59); AST 13 U/L (15-37); Albumin 2.7 g/dL (3.4-5.0); Alkaline Phosphatase 56 U/L (46-116); Anion Gap 8.9 mmol/L (3-11); BUN 10 mg/dL (7-18); Bilirubin, Total 0.1 mg/dL (0.2-1.0); CO2 26.1 mmol/L (21.0-32.0); Calcium 8.7 mg/dL (8.5-10.1); Chloride 109 mmol/L (98-107); Estimated GFR 75.03 (mL/min/1.73m2); Glucose 110 mg/dL (74-106); Magnesium 1.9 mg/dL (1.8-2.4); Potassium 4.3 mmol/L (3.5-5.1); Sodium 144 mmol/L (136-145); Total Protein 6.0 g/dL (6.4-8.2)
[2024-08-30 07:15] LABS: RDW 21.7 % (11.7-14.6)
[2024-08-30] MEDS: Budesonide/Formoterol 160/4.5 6 GM 60 PUFF INH IH ×2 (07:41→20:10)
[2024-08-30] MEDS: Tiotropium Bromide-Respimat 10 PUFF INH 2 PUFF IH (07:42)
[2024-08-30] MEDS: MORPHine 2 MG/ML SYR IVP (08:01)
[2024-08-30] MEDS: Normal Saline Flush 10 ML SYR IVP (08:02)
[2024-08-30] MEDS: Propranolol 20 MG TAB PO ×2 (08:05→21:03)
[2024-08-30] MEDS: Lisinopril 20 MG TAB PO (08:05)
[2024-08-30] MEDS: Sucralfate 1 GM TAB PO ×4 (08:05→21:05)
[2024-08-30] MEDS: Pantoprazole 40 MG TABCR PO ×2 (08:05→21:04)
[2024-08-30 08:10] VITALS: BP 155/87; PULSE 71; RESP 16; TEMP 35.8; O2SAT 98
--- NOTE | 2024-08-30 08:56 | W.PM.PROGNOT ---
Date of Service Date of service: 08/30/24 Time of Service: 08:56 Assessment and Plan Assessment and plan (1) Chronic upper gastrointestinal bleeding: Status: Acute Assessment and plan: No evidence of bleeding source in the stomach yesterday but dark tarry material consistent with melena found in TI and ascending colon. Concern for bleeding source in the small bowel. No contrast extravasation on admission CTA. Imaging reviewed with radiology and no concerning masses identified in the small bowel on that same study. Hemoglobin overall stable currently. Patient also continues to complain of left flank pain -admission UA with some leukocyte esterase. and Mg+ is low today - Additional possible interventions include tagged red scan, capsule endoscopy, CT/MR enterography, provocative angio with IR - Discussed with internal medicine - Discussed on multidisciplinary rounds - Will proceed with tagged red scan today - Would need transfer or outpatient follow-up for other studies -not available at [facility] - No role for surgery unless bleeding source identified - Replace mag IV - Possible muscle relaxers for left side/flank pain (2) Blood loss anemia: Status: Acute Subjective Subjective Interval history since last seen: Tolerating diet but feels a little sick to her stomach. Again complaining of left lower quadrant/flank pain. low Mg+ on labs today. EGD/colonoscopy yesterday without significant lessons or stigmata of bleed in stomach. Likely melena in TI and ascending colon. Hgb back up to 8.5 today Exam Const General: cooperative, comfortable and no acute distress Eyes Sclera: sclerae normal Resp Effort & Inspection: normal respiratory effort GI Inspection: non-distended and obesity Skin General skin exam: turgor normal Neuro General: patient alert, patient awake and patient oriented x3 Cognition: normal cognition Speech: speech normal Objective Last Vital Signs Temp 35.8 C L 08/30/24 08:10 Pulse 71 08/30/24 08:10 Resp 16 08/30/24 08:10 BP 155/87 H 08/30/24 08:10 Pulse Ox 98 08/30/24 08:10 Laboratory Results - last 24 hr 08/29/24 08/30/24 07:42 06:47 WBC 4.44 4.97 RBC 2.51 L 2.79 L Hgb 7.5 L 8.5 L Hct 24.4 L 27.7 L MCV 97 H 99 H MCH 29.9 30.5 MCHC 30.7 L 30.7 L RDW 22.2 H 21.7 H Plt Count 216 256 MPV 11.1 H 10.4 Sodium 144 Potassium 4.3 Chloride 109 H Carbon Dioxide 26.1 Anion Gap 8.9 BUN 10 Creatinine 0.9 Est GFR (CKD-EPI 2020) 75.03 Glucose 110 H Calcium 8.7 Magnesium 1.9 Total Bilirubin 0.1 L AST 13 L ALT 16 Alkaline Phosphatase 56 Total Protein 6.0 L Albumin 2.7 L PAWSS Have you Been Recently Intoxicated or Drunk Within the Last 30 days?: No Have you Ever Experienced Previous Episodes of Alcohol Withdrawal?: Yes Have you ever Experienced Withdrawal Seizures?: No Have you ever Experienced Delirium Tremens(DT)s?: Yes Have you ever undergone Alcohol Rehabilitation Treatment (i.e, inpt ot outpatient treatment programs)?: Yes Have you ever Experienced Blackouts?: Yes Have you ever Combined Alcohol with other Downers within the last 90 days?: No Have you ever Combined Alcohol with any other Substance of Abuse during the last 90 days?: No Positive Blood Alcohol level on Presentation? [PCS.BAL]: No Evidence of Increased Autonomic Activity (i.e. HR>120, tremor, sweating, agitation, nausea)?: No Result: 4 Time Spent with Patient Time Spent with Patient: >50 minutes Time was spent: preparing to see the patient(eg.review tests), ordering medications,tests, procedures, referring, communicating with other health medical care administrator, indepentently interpreting results, counseling the patient and care coordination (Review with radiologist and coordinating tagged red cell scan intervention. Discussion with internal medicine and multidisciplinary rounds team)
--- NOTE | 2024-08-30 10:00 | DI.NM_ITS ---
Exam(s) NM GI BLEED TAGGED RBC GRP CLINICAL HISTORY: melena, negative EGD/colonoscopy. COMPARISON: CT CT ABDOMEN PELVIS CTA from 08/24/2024 EXAMINATION: Dose: 20 mCi technetium labeled red blood cells Images: Immediately for 1 minute followed by dynamic for 1 hour FINDINGS: Normal dynamic imaging. Physiological excretion is present. No active bleeding is identified. IMPRESSION: 1. No active bleeding is identified.
--- NOTE | 2024-08-30 11:04 | PDOC.CMPRO ---
Date of service: 08/30/24 Time of Service: 11:04 Care Management Progress Note Progress Note Text Progress Note Text: Adrianne was off the unit having procedures for much of the day. CM was able to meet with her in the late afternoon and found her to be in good spirits. Her provider updated her on test results and reassured her that there is no evidence of GI bleeding. They did note that she has a large, calcified fibroid in her uterus however which will need to be biopsied at some point. Adrianne hopes to be able to go home tomorrow. She will contact CM on Monday so that we can coordinate with [facility] to get her a phone. Discharge Potential Discharge Needs: PCP F/U Appt Anticipated Barriers to Discharge: Bed availability and Medical Status Patient/Family Education Needs: Review discharge instructions, discuss Ask Me Three Transportation: RCT Plan: Anticipate Adrianne will be discharged home with no new services when medically cleared. It is possible she will be transferred to a tertiary care facility for additional testing not available at [facility]. She will follow up with her PCP and plan of care and transport via RCT. CM will follow and continue to support discharge planning. Social Determinants of Health Screening Social Determinants of health last assessed in clinic: 08/30/24 Will the Patient Participate in the Screening?: Yes Do you worry about having a steady place to live?: yes What is your living situation today?: I do not have steady housing Problems where you live: no known problems In the past 12 months, have you had to go without electric, gas, oil or water in your home?: yes 1. Within the past 12 months, we worried whether our food would run out before we got money to buy more.: Never true 2. Within the past 12 months, the food we bought just didn't last and we didn't have money to get more.: Never true Has lack of transportation kept you from medical appointments or from doing things needed for daily living?: yes Has anyone in your life made you feel unsafe or unsupported?: yes How often does anyone, including family and friends, physically hurt you?: Never How often does anyone, including family and friends, insult or talk down to you?: Never How often does anyone, including family and friends, threaten you with harm?: Never How often does anyone, including family and friends, scream or curse at you?: Never HRSN Safety total score: 4 How hard is it for you to pay for the very basics like food, housing, medical care, and heating? Would you say it is:: Very hard Do you want help finding or keeping work or a job?: I do not need or want help If for any reason you need help with day-to-day activities such as bathing, preparing meals, shopping, managing finances, etc., do you get the help you need?: I don?t need any help How often do you feel lonely or isolated from those around you?: Always Do you speak a language other than [place]ian at home?: No Does the patient want assistance with any of the above?: No Health Related Social Needs Health related social needs: housing instability, housed, with risk of homelessness (Z59.811), transportation insecurity (Z59.82), material hardship(utilities) (Z59.12), problems related to housing/economic circumstances (Z59.89) and feeling lonely/isolated (Z60.8) Health related social needs details: Patient is currently living alone in her car.
[2024-08-30 11:20] VITALS: BP 117/73; PULSE 71; RESP 16; TEMP 36.1; O2SAT 95
--- NOTE | 2024-08-30 15:00 | PGE_ITS ---
Date of Service Date of service: 08/30/24 Time of Service: 12:00 Assessment and Plan Assessment and plan (1) Chronic upper gastrointestinal bleeding: Status: Acute Assessment and plan: Occult blood positive, but drop suggest relatively slow bleed. CTA on admission not revealing. Recent EGD was fairly benign. Gastritis and h. pylori negative on biopsies, but stool antigen was positive and she was treated. She states she may not have taken the entire antibiotic/bismuth regimen. On IV pantoprazole. Add carafate. Appreciate general surgery recommendations. Nulytely prep August 28. EGD/colonoscopy revealed multiple colon polyps but no clear source of bleeding other than external hemorrhoids Antral biopsy done for H pylori [place] US renal to evaluate for kidney stone, none seen Tagged RBC study to evaluate for small bowel bleed, none seen GI followup can be outpatient Will refer to ObGyn to evaluate calcified fibroids seen on CT (2) Alcohol use disorder: Status: Acute Assessment and plan: Reports minimal alcohol use since last admission. No signs of withdrawal currently She has naltrexone, seems to be helping, but her biggest issue is that she is unhoused, living in car. Discussed placement in supportive housing but she is discouraged about prospe cts. Will work with care management (3) Blood loss anemia: Status: Acute Assessment and plan: Stable in the 8's since August 26 transfusion for hemoglobin 6.4 (4) Pulmonary embolus: Assessment and plan: On CT 07/28 but resolved on last CT 08/04 despite not taking apixaban regulalry. This and lack of ongoing symptoms suggests to me the 07/28 PEs may have been false positive CT read. Considering her issues with bleeding as well as anemia I agree with not restarting her Eliquis normal or start her on pharmacological DVT prophylaxis. Will be on SCDs (5) COPD (chronic obstructive pulmonary disease): Assessment and plan: Restarted inhalers. No indication for steroids Subjective Subjective Interval history since last seen: Ms. Rolle continues to have left flank pain, present for months. No new bleeding. Exam Narrative Exam Narrative: General: This is a pleasant woman in no distress HEENT: Normocephalic, atraumatic CV: RRR Resp: CTAB Abd: NTND +NBS MSK: voluntary motion x4 Neuro: Awake and alert, no focal deficits Objective Last Vital Signs Temp 36.1 C L 08/30/24 11:20 Pulse 71 08/30/24 11:20 Resp 16 08/30/24 11:20 BP 117/73 08/30/24 11:20 Pulse Ox 95 08/30/24 11:20 Laboratory Results - last 24 hr 08/30/24 06:47 WBC 4.97 RBC 2.79 L Hgb 8.5 L Hct 27.7 L MCV 99 H MCH 30.5 MCHC 30.7 L RDW 21.7 H Plt Count 256 MPV 10.4 Sodium 144 Potassium 4.3 Chloride 109 H Carbon Dioxide 26.1 Anion Gap 8.9 BUN 10 Creatinine 0.9 Est GFR (CKD-EPI 2020) 75.03 Glucose 110 H Calcium 8.7 Magnesium 1.9 Total Bilirubin 0.1 L AST 13 L ALT 16 Alkaline Phosphatase 56 Total Protein 6.0 L Albumin 2.7 L PAWSS Have you Been Recently Intoxicated or Drunk Within the Last 30 days?: No Have you Ever Experienced Previous Episodes of Alcohol Withdrawal?: Yes Have you ever Experienced Withdrawal Seizures?: No Have you ever Experienced Delirium Tremens(DT)s?: Yes Have you ever undergone Alcohol Rehabilitation Treatment (i.e, inpt ot outpatient treatment programs)?: Yes Have you ever Experienced Blackouts?: Yes Have you ever Combined Alcohol with other Downers within the last 90 days?: No Have you ever Combined Alcohol with any other Substance of Abuse during the last 90 days?: No Positive Blood Alcohol level on Presentation? [PCS.BAL]: No Evidence of Increased Autonomic Activity (i.e. HR>120, tremor, sweating, agitation, nausea)?: No Result: 4 Time Spent with Patient Time Spent with Patient: 35-49 minutes Time was spent: preparing to see the patient(eg.review tests), obtaining and/or reviewing separately otained hiistory, ordering medications,tests, procedures, referring, communicating with other health vision care associate, indepentently interpreting results, counseling the patient and care coordination
[2024-08-30] MEDS: hydrOXYzine HCL 25 MG TAB PO (17:52)
[2024-08-30] MEDS: MORPHine 4 MG/ML SYR IVP (17:53)
[2024-08-30] MEDS: Nicotine 14 MG/24 HR PATCH TD (17:53)
[2024-08-30 20:02] VITALS: BP 147/83; PULSE 73; RESP 19; TEMP 36; O2SAT 98
[2024-08-30] MEDS: Folic Acid 1 MG TAB PO (21:02)
[2024-08-30] MEDS: Thiamine 100 MG TAB PO (21:02)
[2024-08-30] MEDS: Cyanocobalamin 500 MCG TAB PO (21:03)
[2024-08-30] MEDS: Ferrous Sulfate 325 MG TAB PO (21:03)
[2024-08-30] MEDS: Multivitamin TAB 1 TAB PO (21:04)
[2024-08-30] MEDS: Topiramate 50 MG TAB PO (21:04)
[2024-08-30] MEDS: Naltrexone 50 MG TAB PO (21:04)
[2024-08-30] MEDS: traZODone 50 MG TAB 75 MG PO (21:05)
[2024-08-30] MEDS: QUEtiapine 100 MG TAB 150 MG PO (21:06)
[2024-08-30 22:21] VITALS: BP 149/87; PULSE 79; RESP 19; TEMP 36.2; O2SAT 99
[2024-08-31] MEDS: Normal Saline Flush 10 ML SYR IVP ×3 (02:07→13:22)
[2024-08-31] MEDS: hydrOXYzine HCL 25 MG TAB PO (02:07)
[2024-08-31] MEDS: MORPHine 4 MG/ML SYR IVP ×2 (02:07→13:22)
[2024-08-31 07:01] LABS: HCT 22.9 % (36.0-46.0); HGB 7.2 g/dL (11.2-15.7); MCH 31.4 pg (27.0-33.0); MCHC 31.4 % (32.0-36.0); MCV 100 fL (80-95); MPV 11.0 fL (8.0-11.0); Platelet Count 233 10^3/uL (130-400); RBC 2.29 10^6/uL (3.93-5.22); RDW-SD 77.3 fL; WBC 5.64 10^3/uL (4.4-10.8)
[2024-08-31 07:21] LABS: ALT 12 U/L (14-59); AST 13 U/L (15-37); Albumin 2.4 g/dL (3.4-5.0); Alkaline Phosphatase 53 U/L (46-116); Anion Gap 7.8 mmol/L (3-11); BUN 13 mg/dL (7-18); Bilirubin, Total 0.1 mg/dL (0.2-1.0); CO2 24.2 mmol/L (21.0-32.0); Calcium 8.3 mg/dL (8.5-10.1); Chloride 109 mmol/L (98-107); Estimated GFR 75.03 (mL/min/1.73m2); Glucose 106 mg/dL (74-106); Magnesium 1.8 mg/dL (1.8-2.4); Potassium 4.0 mmol/L (3.5-5.1); Sodium 141 mmol/L (136-145); Total Protein 5.5 g/dL (6.4-8.2)
[2024-08-31 07:32] LABS: RDW 21.0 % (11.7-14.6)
--- NOTE | 2024-08-31 08:25 | PGE_ITS ---
Date of Service Date of service: 08/31/24 Time of Service: : Assessment and Plan Assessment and plan (1) Blood loss anemia: Status: Acute Assessment and plan: 54 yo F with anemia and reports of dark stools. Dark material consistent with melena seen in TI and ascending colon on colonoscopy but stomach without evidence of bleed on EGD 08/29. Bleeding scan and CTA without evidence of bleed. Hgb between 7-8 during hospitalization after transfusion. Patient with large fibroids but no report of vaginal bleeding. CKD can affect blood production. Left flank pain may be related to prior rib fractures, splenic injury, likely pseudocyst at the tail of pancreas. -no futher evaluation modalities available here -additional eval could include enterography, provocative IR, capsule and push endoscopy - Recheck hemoglobin this afternoon - Okay for discharge from surgery standpoint if hemoglobin stable, otherwise consider transfer - As needed nausea meds - As needed pain meds - Continue PPI (2) CKD (chronic kidney disease): Status: Chronic Subjective Subjective Interval history since last seen: Nuc med bleeding scan yesterday negative. Hgb 7.2 this AM - fluctating between 7.5-8.5 over last 3 days since transfusion. No blood in stool. Mild nausea after food this morning. Left flank pain continues. Ultrasound negative for nephrolithiasis or hydronephrosis Exam Const General: cooperative, comfortable and no acute distress Eyes Sclera: sclerae normal Resp Effort & Inspection: normal respiratory effort and no cough Cardio Rate: regular rate GI Inspection: non-distended Palpation: soft, no guarding and tender (Left flank near ribs) Skin General skin exam: turgor normal and no pallor Neuro General: patient alert, patient awake and patient oriented x3 Cognition: normal cognition Speech: speech normal Objective Last Vital Signs Temp 36.2 C L 08/30/24 22:21 Pulse 79 08/30/24 22:21 Resp 19 08/30/24 22:21 BP 149/87 H 08/30/24 22:21 Pulse Ox 99 08/30/24 22:21 Laboratory Results - last 24 hr 08/31/24 06:41 WBC 5.64 RBC 2.29 L Hgb 7.2 L Hct 22.9 L MCV 100 H MCH 31.4 MCHC 31.4 L RDW 21.0 H Plt Count 233 MPV 11.0 Sodium 141 Potassium 4.0 Chloride 109 H Carbon Dioxide 24.2 Anion Gap 7.8 BUN 13 Creatinine 0.9 Est GFR (CKD-EPI 2020) 75.03 Glucose 106 Calcium 8.3 L Magnesium 1.8 Total Bilirubin 0.1 L AST 13 L ALT 12 L Alkaline Phosphatase 53 Total Protein 5.5 L Albumin 2.4 L PAWSS Have you Been Recently Intoxicated or Drunk Within the Last 30 days?: No Have you Ever Experienced Previous Episodes of Alcohol Withdrawal?: Yes Have you ever Experienced Withdrawal Seizures?: No Have you ever Experienced Delirium Tremens(DT)s?: Yes Have you ever undergone Alcohol Rehabilitation Treatment (i.e, inpt ot outpatient treatment programs)?: Yes Have you ever Experienced Blackouts?: Yes Have you ever Combined Alcohol with other Downers within the last 90 days?: No Have you ever Combined Alcohol with any other Substance of Abuse during the last 90 days?: No Positive Blood Alcohol level on Presentation? [PCS.BAL]: No Evidence of Increased Autonomic Activity (i.e. HR>120, tremor, sweating, a gitation, nausea)?: No Result: 4 Time Spent with Patient Time Spent with Patient: 25-34 minutes Time was spent: preparing to see the patient(eg.review tests), ordering medications,tests, procedures, referring, communicating with other health respiratory care assistant, counseling the patient and care coordination
[2024-08-31 08:36] VITALS: BP 134/78; PULSE 82; RESP 16; TEMP 36.1; O2SAT 99
[2024-08-31] MEDS: Sucralfate 1 GM TAB PO ×2 (09:31→11:58)
[2024-08-31] MEDS: Pantoprazole 40 MG TABCR PO (09:31)
[2024-08-31] MEDS: Propranolol 20 MG TAB PO (09:31)
[2024-08-31] MEDS: Ondansetron 4 MG/2 ML VIAL IVP (09:37)
[2024-08-31] MEDS: Milk of Magnesia 30 ML CUP PO (09:37)
[2024-08-31] MEDS: Lisinopril 20 MG TAB PO (11:00)
[2024-08-31] MEDS: Tiotropium Bromide-Respimat 10 PUFF INH 2 PUFF IH (11:07)
[2024-08-31] MEDS: Budesonide/Formoterol 160/4.5 6 GM 60 PUFF INH IH (11:07)
--- NOTE | 2024-08-31 15:05 | W.PM.DS.N ---
Date of service: 08/31/24 Time of Service: 15:00 DS: Diagnosis Discharge Diagnosis (1) Blood loss anemia: Status: Resolved Asessment and Plan: Occult blood positive, but drop suggest relatively slow bleed. CTA on admission not revealing. Recent EGD was fairly benign. Gastritis and h. pylori negative on biopsies, but stool antigen was positive and she was treated. She states she may not have taken the entire antibiotic/bismuth regimen. On IV pantoprazole. Add carafate. Appreciate general surgery recommendations. Nulytely prep August 28. EGD/colonoscopy revealed multiple colon polyps but no clear source of bleeding other than external hemorrhoids Antral biopsy done for H pylori [facility] US renal to evaluate for kidney stone, none seen Tagged RBC study to evaluate for small bowel bleed, none seen GI followup can be outpatient Will refer to ObGyn to evaluate calcified fibroids seen on CT (2) Chronic upper gastrointestinal bleeding: Status: Acute Asessment and Plan: As above (3) Alcohol use disorder in remission: Status: Acute Asessment and Plan: Reports minimal alcohol use since last admission. No signs of withdrawal currently She has naltrexone, seems to be helping, but her biggest issue is that she is unhoused, living in car. Discussed placement in supportive housing but she is discouraged about prospects. Will work with care management (4) Pulmonary embolus: Asessment and Plan: On CT 07/28 but resolved on last CT 08/04 despite not taking apixaban regulalry. This and lack of ongoing symptoms suggests to me the 6/8 PEs may have been false positive CT read. Considering her issues with bleeding as well as anemia I agree with not restarting her Eliquis normal or start her on pharmacological DVT prophylaxis. Will be on SCDs (5) COPD (chronic obstructive pulmonary disease): Asessment and Plan: Restarted inhalers. No indication for steroids Discharge Plan Disposition Patient Disposition: Home Condition: Fair Discharge Details Reason For Visit: GIB Admit Date/Time: 08/24/24 22:22 Admit Provider: Elio Gregg Attending Provider: Elio Gregg Primary Care Provider: Paula Barboza Hospital Course Hospital Course: Pratima Rolle is a 54 year old woman presenting August 24 with hematemesis and rectal bleeding. Hemoglobin was in the 7's on arrival; she fell to 6.4 on hospital day 2, which may have been dilutional, but she was given a unit of blood. Her hemoglobin has ranged 7.2 - 8.6 since the transfusion. She had EGD and colonoscopy on August 29, which did not reveal a source of bleeding. She had tagged RBC study on August 30, which also did not show a source of blood loss. She reported chronic sharp intermittent left flank pain that she had for 2-3 months. She had ultrasound to evaluate for kidney stones which were not seen. CT imaging did show calcified uterine fibroids, and she is referred to ObGyn clinic for followup on this finding. She had trauma in 2023 which resulted in rib fractures and a spleen lac, which are both visible on imaging as well, with a stable hematoma remaining on the spleen. On day of discharge she is having a flare of her chronic left flank pain requiring narcotics. She will be discharged on a small supply of minimal narcotics for her pain flares, with instructions to follow up with her PCP for pain evaluation. Home Meds and New Rx's Prescriptions: New oxycodone 5 mg tablet 5 mg PO QID PRNQty: 10 0RF Continued lisinopril 20 mg tablet 20 mg PO DAILY Qty: 90 3RF Spiriva Respimat 1.25 mcg/actuation mist 2 puff inhalation DAILY Qty: 4 12RF albuterol sulfate [Ventolin HFA] 90 mcg/actuation HFA aerosol inhaler See Rx Instructions .ROUTE .COMPLEX Qty: 18 12RF Dose Instruction: INHALE TWO PUFFS BY MOUTH EVERY 4 HOURS NEEDED Rx Instructions: INHALE TWO PUFFS BY MOUTH EVERY 4 HOURS NEEDED ferrous sulfate 325 mg (65 mg iron) tablet 325 mg PO DAILY Qty: 30 0RF folic acid 1 mg tablet 1 mg PO DAILY Qty: 30 0RF hydroxyzine HCl 25 mg tablet 25 mg PO TID PRN (Reason: anxiety) Qty: 180 1RF (DME) Hand Held Nebulizer See Rx Instructions .Route .MEDSUPPLY Qty: 1 0RF Rx Instructions: As directed (DME) POCKET CHAMBER Spacer See Rx Instructions .ROUTE .MEDSUPPLY Qty: 1 0RF Rx Instructions: As directed quetiapine 100 mg tablet See Rx Instructions .ROUTE .COMPLEX Qty: 135 0RF Dose Instruction: TAKE 1 & 1/2 TABLETS BY MOUTH AT BEDTIME DAILY Patient Comments: patient ran out Rx Instructions: TAKE 1 & 1/2 TABLETS BY MOUTH AT BEDTIME DAILY trazodone 50 mg tablet See Rx Instructions .ROUTE .COMPLEX Qty: 135 1RF Dose Instruction: TAKE 1 & 1/2 TABLETS BY MOUTH DAILY AT BEDTIME NEEDED FOR SLEEP Rx Instructions: TAKE 1 & 1/2 TABLETS BY MOUTH DAILY AT BEDTIME NEEDED FOR SLEEP pantoprazole [Protonix] 40 mg tablet,delayed release (DR/EC) 40 mg PO BID Qty: 60 0RF propranolol 20 mg tablet 20 mg PO BID Patient Comments: TAKE ONE TABLET BY MOUTH TWICE A DAY (DME) nebulizers [facility] [place] See Rx Instructions .ROUTE .MEDSUPPLY Qty: 1 0RF Rx Instructions: As directed thiamine HCl (vitamin B1) 100 mg tablet 100 mg PO DAILY Patient Comments: TAKE ONE TABLET BY MOUTH EVERY DAY multivitamin [Multiple Vitamins] Tablet 1 tab PO DAILY Qty: 0 0RF ipratropium-albuterol 0.5 mg-3 mg(2.5 mg base)/3 mL Solution For Nebulization 3 ml UPD Q6H PRN (Reason: Wheezing) Qty: 24 2RF naltrexone 50 mg Tablet 50 mg PO DAILY Qty: 30 2RF topiramate 50 mg Tablet 50 mg PO HS Qty: 30 0RF budesonide-formoterol [Symbicort] 160-4.5 mcg/actuation Hfa Aerosol Inhaler 2 puff inhalation BID Qty: 1 2RF Discontinued Eliquis 5 mg tablet 5 mg PO BID Qty: 180 0RF Rx Instructions: Start on Monday08/08/24 AM metronidazole 500 mg tablet 500 mg PO TID Qty: 39 0RF tetracycline 500 mg capsule 500 mg PO QID Qty: 52 0RF Discharge Instructions Stand Alone Forms: Nursing Discharge Form Referrals: Adrianne Elkins DO [OSTEOPATHIC DOCTOR, Obstetrics] Referral Note: I called and left a voicemail to have them call you to make a follow up appointment. Paula Barboza NP [Primary Care Provider, Medicine] Referral Note: I called your PCP office and left a voicemail to have them call you to set up a follow up appointment for within 1 to 2 weeks. Activity:: Activity as Tolerated Equipment/Supplies:: No Equipment Needed Diet:: As Tolerated Discharge Orders Discharge Orders: Discharge Order (Routine); Ordered 08/31/24 Ordered By: Freedom Mccauley Discharge Data Discharge Date/Time-TO BE ENTERED AT DEPARTURE: 08/31/24 17:31 DS: Summary Time Spent with Patient providing and/or coordinating discharge services: Greater than 30 minutes Status at Discharge Functional status at discharge: uses cane/walker Overall status at discharge: patient is progressing back to baseline Mental Status: mental status grossly normal Speech and Movement: speech and movement normal Mood: congruent mood Affect: normal affect Quality:SDOH Health Related Social Needs: Health related social needs risk of homeless transpo insecurity material hardship house/econ circumstance lonely/isolated Health related social needs details Patient is currently living alone in her car. Health related social needs details: Patient is currently living alone in her car. Exam Psych Mental Status: mental status grossly normal Speech and Movement: speech and movement normal Mood: congruent mood Affect: normal affect DS: Data Vitals/I&O Vitals and I&O: Vital Signs Temperature 36.1 C L 08/31/24 08:36 Temperature Source Temporal Artery Scan 08/31/24 08:36 Pulse 82 08/31/24 08:36 Pulse Rhythm Regular 08/24/24 23:47 Pulse 68 08/29/24 13:11 Respiratory Rate 16 08/31/24 08:36 Respiratory Effort Normal, Non-Labored 08/24/24 23:47 Respiratory Depth Normal 08/24/24 23:47 Respiratory Pattern Normal 08/24/24 23:47 Blood Pressure 134/78 08/31/24 08:36 Blood Pressure Mean 96 08/31/24 08:36 Blood Pressure Position Sitting 08/24/24 16:51 Pulse Oximetry 99 08/31/24 08:36 Oxygen Delivery Method Room Air 08/31/24 08:36 Oxygen Flow Rate 0 08/31/24 08:36 Pain Level 10 08/31/24 13:22 Comment Pt refused vitals 08/31/24 04:00 Intake & Output 08/30/24 08/31/24 08/31/24 23:59 11:59 23:59 Intake Total 1600 / 2210 1050 / 1050 Balance 1600 / 2210 1050 / 1050 Intake: IV 1600 / 1610 10 Oral 1040 / 1040 Other: Urine Color Yellow Urine Appearance Clear Data Completed and Pending Labs on day of discharge: Labs from last 24 hours 08/31/24 06:41 WBC 5.64 RBC 2.29 L Hgb 7.2 L Hct 22.9 L MCV 100 H MCH 31.4 MCHC 31.4 L RDW 21.0 H Plt Count 233 MPV 11.0 Sodium 141 Potassium 4.0 Chloride 109 H Carbon Dioxide 24.2 Anion Gap 7.8 BUN 13 Creatinine 0.9 Est GFR (CKD-EPI 2020) 75.03 Glucose 106 Calcium 8.3 L Magnesium 1.8 Total Bilirubin 0.1 L AST 13 L ALT 12 L Alkaline Phosphatase 53 Total Protein 5.5 L Albumin 2.4 L PFSH All Active Problems (Updated 09/03/24 @ 08:34 by Freedom Mccauley MD) Alcohol use disorder in remission (Acute) Anemia (Chronic) Alcohol intoxication in active alcoholic (Acute) CKD (chronic kidney disease) (Chronic) Anemia (Chronic) Depression with anxiety (Chronic) Abdominal fluid collection (Acute) Dyslipidemia (Acute) Abdominal pain, chronic, left upper quadrant (Acute) Chronic upper gastrointestinal bleeding (Acute) Cyst and pseudocyst of pancreas (Acute) Anemia (Chronic) Anxiety (Chronic) DUB (dysfunctional uterine bleeding) (Acute) Impaired fasting blood sugar (Acute 08/01/05) Obesity, unspecified (Acute 05/31/11) Atypical squamous cells of undetermined significance (ASC-US) on cervical Pap smear (Acute 08/05/09) ASCUS 08/05/09; 05/31/2011 Spinal stenosis of lumbar region (Acute 01/11/10) LS spine surg; Dr Sebastian Walker Tobacco dependence (Acute 08/01/05) Medical History Pulmonary embolus Helicobacter pylori (H. pylori) Chronic pain (02/20/09) chronic tramadol rx, back pain, sciatica despite LS surg 2009. Depression (04/03/15) Sertaline in the past with good relief of sx but then developed intolerable adverse rxns (nausea, flushing) Started on venlafaxine 03/2015 PHQ9 score = 9, indicating mild depression 03/2015 Anemia COPD (chronic obstructive pulmonary disease) HTN (hypertension), benign Spinal stenosis Lumbar region Surgical History History of esophagogastroduodenoscopy (EGD) (~08/05/24) w bx. per report-negative for H.Pylori Internal injury, spleen, closed with IR embolization Back surgery L5-S1 decompression 2009 Family History Mother , lung cancer at age 50. No problems noted. Father , MVA No problems noted. Other Lung cancer Social History Smoking/Tobacco Use Status: Current every day Tobacco Type: cigarettes Smoking risk assessment performed?: Yes Alcohol Intake: current Alcohol Intake frequency: 3 or more drinks per day Alcohol type: beer and hard liquor Drug use: Never Substance use type: does not use Housing: other Do you feel safe at home: Yes Do you feel safe in your relationship?: Yes Time Spent with Patient Time Spent with Patient: 45-69 minutes Time was spent: preparing to see the patient(eg.review tests), obtaining and/or reviewing separately otained hiistory, ordering medications,tests, procedures, referring, communicating with other health home care chaplain, indepentently interpreting results, counseling the patient and care coordination
--- NOTE | 2024-08-31 18:57 | CMDISCH_ITS ---
Date of service: 08/31/24 Time of Service: 18:57 LACE Index Scoring Tool Questions: Length of Stay (in days): 7 - 13 Was the patient admitted via the E.D.?: Yes Comorbidities: Chronic Pulmonary Disease and Liver or Renal Disease E.D. Visits: 13 Answers: Total Score: 17 Risk of Readmission: High Risk Care Management Discharge Plan Reason for Hospitalization: GI bleed Discharge Plan: Adrianne was discharged home today with no new services. She will f/u with her PCP and with obstetrics, and continue per her plan of care. She was picked up by a friend in a private vehicle. Adrianne will be staying in her car. She was given a [employer] food bag. Patient/Family Education Needs: Review of discharge instructions, activity, limitations, and discuss Ask me 3. SDOH Health Related Social Needs: Health related social needs risk of homeless transpo i nsecurity material hardship house/econ circumstance lonely/isolated Health related social needs details Patient is current ly living alone in her car. Health related social needs details: Patient is currently living alone in her car.
== END 2024-08-31 17:31 | disposition home or self-care (01) | DRG 378 ==
LOC: ER 22:50 → MS 08-25 07:18
PROVIDERS: Family Medicine; Surgery; Admitting Provider Hospitalist; Emergency Provider Physician Assistant; PCP Nurse Practitioner; Responsible Provider Family Medicine; Visit Provider Hospitalist
PROC: 0DB28ZX Excision of Middle Esophagus, Via Natural or Artificial Opening Endoscopic, Diagnostic (ICD-10-PCS; CPT 45380; principal; 2024-08-29 11:00)
DX: K92.0 Hematemesis (principal); D62 Acute posthemorrhagic anemia; Z59.02 Unsheltered homelessness; K92.1 Melena; K70.30 Alcoholic cirrhosis of liver without ascites; F10.129 Alcohol abuse with intoxication, unspecified; I12.9 Hypertensive chronic kidney disease with stage 1 through stage 4 chronic kidney disease, or unspecified chronic kidney disease; J44.9 Chronic obstructive pulmonary disease, unspecified; E66.9 Obesity, unspecified; N18.9 Chronic kidney disease, unspecified; K62.1 Rectal polyp; K22.89 Other specified disease of esophagus; K31.7 Polyp of stomach and duodenum; M48.061 Spinal stenosis, lumbar region without neurogenic claudication; K64.4 Residual hemorrhoidal skin tags; R73.01 Impaired fasting glucose; E78.5 Hyperlipidemia, unspecified; F41.8 Other specified anxiety disorders; F17.210 Nicotine dependence, cigarettes, uncomplicated; Z79.899 Other long term (current) drug therapy; Z79.01 Long term (current) use of anticoagulants; Y90.2 Blood alcohol level of 40-59 mg/100 ml; Z68.31 Body mass index [BMI] 31.0-31.9, adult; T45.516A Underdosing of anticoagulants, initial encounter; I95.9 Hypotension, unspecified; R00.0 Tachycardia, unspecified; E53.8 Deficiency of other specified B group vitamins; D25.9 Leiomyoma of uterus, unspecified; S36.029S Unspecified contusion of spleen, sequela; X58.XXXS Exposure to other specified factors, sequela; K29.80 Duodenitis without bleeding
CPT/HCPCS: 45380; 43239; 00123; 36415; 36430; 76770; 80048; 80053; 80076; 80307; 83690; 85027; 86850; 86900; 86901; 86920; 87040; 88305; 94640; 96361; 96365; 96375; 96376; 99222; 99285; 74174; 78278; 80320; 81003; 81015; 82140; 82272; 83540; 83550; 83605; 83735; 83880; 84443; 84484; 85014; 85018; 85025; 85610; 85730; 88361; 94664; 94760; 99232; 99239; G0378; J0131; J2003; J2270; J2405; J2470; J2704; J3490; P9016

== ENCOUNTER 2024-09-03 13:17 | Emergency (ER) | payer MEDICAID, SELFPAY ==
[2024-09-03] VITALS (15 sets, daily range): BP systolic 93–139; BP diastolic 47–85; PULSE 95–118; RESP 14–22; TEMP 36.6; O2SAT 83–100
--- NOTE | 2024-09-03 13:15 | DI.CT_ITS ---
Exam(s) CT HEAD WO EXAM: CT HEAD WO CLINICAL HISTORY: AMS. TECHNIQUE: Imaging Protocol: Axial computed tomography images with coronal and sagittal reformatted images were created and reviewed COMPARISON: CT CT HEAD CERVICAL SPINE WO from 08/06/[address] HEAD CERVICAL SPINE WO from 07/22/2024 FINDINGS: The examination is limited due to patient motion artifact. Ventricles and Extra axial spaces: Normal in size and morphology for the patient's age. There is again seen a hyperdense partially calcified extra-axial mass along the high right frontal convexity. This is most suggestive of a meningioma. This is unchanged compared to prior examinations. Hemorrhage: None. Cerebral parenchyma: There is a normal jhaveri-white matter differentiation. No evidence of an acute territorial infarct or mass effect is seen. Midline shift: None. Brainstem/Cerebellum: Normal. Calvarium: Normal. Visualized Paranasal sinuses/Mastoids: Clear. Soft Tissues: Unremarkable. IMPRESSION: No acute intracranial process. RADIATION DOSE DELIVERED: 905.51mGy.cm Total DLP DATA REPOSITORY: All CT scans at this facility are submitted to the National Radiology Data Registry (NRDR) Dose Index Registry (DIR) with the [employer] ([employer]). RADIATION OPTIMIZATION: All CT scans at this facility use at least one of these dose optimization techniques: automated exposure control; mA and/or kV adjustment per patient size (includes targeted exams where dose is matched to clinical indication); or iterative reconstruction.
--- NOTE | 2024-09-03 13:41 | W.ED.GENAD ---
Discharge Plan Discharge Details Chief Complaint: AMS/LOC Clinical Impression: Alcohol intoxication Primary Care Provider: Paula Barboza ED Provider: Shirley Marquez Home Meds and New Rx's Prescriptions: No Action lisinopril 20 mg tablet 20 mg PO DAILY Qty: 90 3RF Spiriva Respimat 1.25 mcg/actuation mist 2 puff inhalation DAILY Qty: 4 12RF albuterol sulfate [Ventolin HFA] 90 mcg/actuation HFA aerosol inhaler See Rx Instructions .ROUTE .COMPLEX Qty: 18 12RF Dose Instruction: INHALE TWO PUFFS BY MOUTH EVERY 4 HOURS NEEDED Rx Instructions: INHALE TWO PUFFS BY MOUTH EVERY 4 HOURS NEEDED ferrous sulfate 325 mg (65 mg iron) tablet 325 mg PO DAILY Qty: 30 0RF folic acid 1 mg tablet 1 mg PO DAILY Qty: 30 0RF hydroxyzine HCl 25 mg tablet 25 mg PO TID PRN (Reason: anxiety) Qty: 180 1RF (DME) Hand Held Nebulizer See Rx Instructions .Route .MEDSUPPLY Qty: 1 0RF Rx Instructions: As directed (DME) POCKET CHAMBER Spacer See Rx Instructions .ROUTE .MEDSUPPLY Qty: 1 0RF Rx Instructions: As directed quetiapine 100 mg tablet See Rx Instructions .ROUTE .COMPLEX Qty: 135 0RF Dose Instruction: TAKE 1 & 1/2 TABLETS BY MOUTH AT BEDTIME DAILY Patient Comments: patient ran out Rx Instructions: TAKE 1 & 1/2 TABLETS BY MOUTH AT BEDTIME DAILY trazodone 50 mg tablet See Rx Instructions .ROUTE .COMPLEX Qty: 135 1RF Dose Instruction: TAKE 1 & 1/2 TABLETS BY MOUTH DAILY AT BEDTIME NEEDED FOR SLEEP Rx Instructions: TAKE 1 & 1/2 TABLETS BY MOUTH DAILY AT BEDTIME NEEDED FOR SLEEP pantoprazole [Protonix] 40 mg tablet,delayed release (DR/EC) 40 mg PO BID Qty: 60 0RF propranolol 20 mg tablet 20 mg PO BID Patient Comments: TAKE ONE TABLET BY MOUTH TWICE A DAY oxycodone 5 mg tablet 5 mg PO QID PRNQty: 10 0RF (DME) nebulizers Misc See Rx Instructions .ROUTE .MEDSUPPLY Qty: 1 0RF Rx Instructions: As directed thiamine HCl (vitamin B1) 100 mg tablet 100 mg PO DAILY Patient Comments: TAKE ONE TABLET BY MOUTH EVERY DAY multivitamin [Multiple Vitamins] Tablet 1 tab PO DAILY Qty: 0 0RF ipratropium-albuterol 0.5 mg-3 mg(2.5 mg base)/3 mL Solution For Nebulization 3 ml UPD Q6H PRN (Reason: Wheezing) Qty: 24 2RF naltrexone 50 mg Tablet 50 mg PO DAILY Qty: 30 2RF topiramate 50 mg Tablet 50 mg PO HS Qty: 30 0RF budesonide-formoterol [Symbicort] 160-4.5 mcg/actuation Hfa Aerosol Inhaler 2 puff inhalation BID Qty: 1 2RF HPI General Mode of arrival: EMS. Date/Time Provider Initiated Documentation: 09/03/24 13:26. Limitations to Documentation: altered mental status. Information obtained by: patient, EMS and old records reviewed. HPI Narrative: This is a 54-year-old female patient with a past medical history significant for alcohol use disorder, recent admission for anemia in the setting of GI bleed, brought in by EMS after being found intoxicated in her vehicle. The patient missed a court date today, police arrived to arrest her, and found her to be sitting in the passenger seat of a [place] in the [place]. She had drank what looks like three quarters of 1/5 of hard liquor. The patient was significantly altered, but protecting her airway, and was transported by EMS without acute incident for evaluation. The patient herself nods yes when asked if she is okay, but is otherwise a unable to provide history Related Data Home Medications ?Medication ?Instructions ?Recorded ?Confirmed inhalational spacing device #1 ea 09/28/20 08/24/24 (POCKET CHAMBER spacer) nebulizers #1 ea 03/16/21 08/24/24 lisinopril 20 mg tablet 20 mg PO DAILY #90 tab-caps 11/27/23 08/24/24 tiotropium bromide 1.25 2 puff inhalation DAILY #4 grams 11/27/23 08/24/24 mcg/actuation mist for inhalation (Spiriva Respimat) quetiapine 100 mg tablet See Rx Instructions .Route 06/03/24 08/24/24 .COMPLEX #135 tabs Hand Held Nebulizer #1 ea 06/21/24 08/24/24 albuterol sulfate 90 mcg/actuation See Rx Instructions .Route 06/21/24 08/24/24 aerosol inhaler (Ventolin HFA) .COMPLEX #18 grams ferrous sulfate 325 mg (65 mg 325 mg PO DAILY #30 tabs 06/21/24 08/24/24 iron) tablet folic acid 1 mg tablet 1 mg PO DAILY #30 tabs 06/21/24 08/24/24 hydroxyzine HCl 25 mg tablet 25 mg PO TID PRN anxiety #180 tabs 06/21/24 08/24/24 trazodone 50 mg tablet See Rx Instructions .Route 07/01/24 08/24/24 .COMPLEX #135 tabs thiamine HCl (vitamin B1) 100 mg 100 mg PO DAILY 07/24/24 08/24/24 tablet budesonide-formoterol HFA 160 2 puff inhalation BID #1 inh 07/27/24 08/24/24 mcg-4.5 mcg/actuation aerosol inhaler (Symbicort) ipratropium 0.5 mg-albuterol 3 mg 3 ml UPD Q6H PRN Wheezing #24 pkgs 07/27/24 08/24/24 (2.5 mg base)/3 mL nebulization soln multivitamin (Multiple Vitamins 1 tab PO DAILY #0 tabs 07/27/24 08/24/24 tablet) naltrexone 50 mg tablet 50 mg PO DAILY #30 tabs 07/27/24 08/24/24 topiramate 50 mg tablet 50 mg PO HS #30 tabs 07/27/24 08/24/24 pantoprazole 40 mg tablet,delayed 40 mg PO BID #60 tabs 08/06/24 08/24/24 release (Protonix) propranolol 20 mg tablet 20 mg PO BID 08/25/24 08/25/24 oxycodone 5 mg tablet 5 mg PO QID PRN #10 tabs 08/31/24 Previous Rx's ?Medication ?Instructions ?Recorded inhalational spacing device #1 ea 09/28/20 (POCKET CHAMBER spacer) nebulizers #1 ea 03/16/21 lisinopril 20 mg tablet 20 mg PO DAILY #90 tab-caps 11/27/23 tiotropium bromide 1.25 2 puff inhalation DAILY #4 grams 11/27/23 mcg/actuation mist for inhalation (Spiriva Respimat) quetiapine 100 mg tablet See Rx Instructions .Route 06/03/24 .COMPLEX #135 tabs Hand Held Nebulizer #1 ea 06/21/24 albuterol sulfate 90 mcg/actuation See Rx Instructions .Route 06/21/24 aerosol inhaler (Ventolin HFA) .COMPLEX #18 grams ferrous sulfate 325 mg (65 mg 325 mg PO DAILY #30 tabs 06/21/24 iron) tablet folic acid 1 mg tablet 1 mg PO DAILY #30 tabs 06/21/24 hydroxyzine HCl 25 mg tablet 25 mg PO TID PRN anxiety #180 tabs 06/21/24 trazodone 50 mg tablet See Rx Instructions .Route 07/01/24 .COMPLEX #135 tabs budesonide-formoterol HFA 160 2 puff inhalation BID #1 inh 07/27/24 mcg-4.5 mcg/actuation aerosol inhaler (Symbicort) ipratropium 0.5 mg-albuterol 3 mg 3 ml UPD Q6H PRN Wheezing #24 pkgs 07/27/24 (2.5 mg base)/3 mL nebulization soln multivitamin (Multiple Vitamins 1 tab PO DAILY #0 tabs 07/27/24 tablet) naltrexone 50 mg tablet 50 mg PO DAILY #30 tabs 07/27/24 topiramate 50 mg tablet 50 mg PO HS #30 tabs 07/27/24 pantoprazole 40 mg tablet,delayed 40 mg PO BID #60 tabs 08/06/24 release (Protonix) oxycodone 5 mg tablet 5 mg PO QID PRN #10 tabs 08/31/24 Allergies Allergy/AdvReac Type Severity Reaction Status Date / Time hydromorphone (From Dilaudid) Allergy Severe Itching Verified 09/03/24 13:24 oxycodone AdvReac Unknown TERRIBLE Verified 09/03/24 13:24 DREAMS General Stated Complaint: AMS/LOC ALISTAIR: 3 Exam Narrative Exam Narrative: Gen: Altered, responds to loud verbal stimuli, answer simple questions but does not reliably follow commands HEENT: Non-icteric sclera, 4 mm bilaterally Neck: Supple Lungs: No apparent respiratory distress, normal respiratory effort. Lung sounds clear and equal CV: Appears well perfused, heart with regular rate and rhythm Abdomen: Non-distended, soft MSK: Moves 4 extremities without apparent limitation in ROM Skin: Visualized skin without rashes, cyanosis. Neuro: Opens eyes and speaks to loud verbal stimuli, appears to be moving extremities symmetrically, though is unreliable at following commands. Course Vital Signs Vital signs: Vital Signs Temperature 36.6 C 09/03/24 13:20 Pulse 109 H 09/03/24 13:20 Respiratory Rate 14 09/03/24 13:20 Blood Pressure 93/47 L 09/03/24 13:20 Pulse Oximetry 90 L 09/03/24 13:20 Temperature 36.6 C 09/03/24 13:20 Temperature Source Tympanic 09/03/24 13:20 Pulse 109 H 09/03/24 13:20 Respiratory Rate 14 09/03/24 13:20 Blood Pressure 93/47 L 09/03/24 13:20 Pulse Oximetry 90 L 09/03/24 13:20 Oxygen Delivery Method Room Air 09/03/24 13:20 Oxygen Flow Rate 0 09/03/24 13:20 Medical Decision Making This is a 54-year-old female patient presenting via EMS for altered mental status and presumed intoxication. My differential includes but is not limited to alcohol intoxication, considered coingestion, withdrawal syndrome, also considered anemia, metabolic electrolyte derangement, dehydration, kidney and liver issues given the recent admission. The patient does not seem to have had any traumatic injuries but I considered intracranial abnormalities including hemorrhage, mass effect, stroke. No focal neurodeficits are quite reassuring, she did not have any witnessed seizure activity per EMS or police. We will obtain laboratory studies to include CBC, CMP, magnesium, troponin, ethanol level, urinalysis and UDS. I will obtain a Noncon head CT, and we will keep the patient on end-tidal CO2 to monitor for apnea. The patient did have a decrease in her oxygen to the high 80% on room air and so supplemental oxygen by nasal cannula was provided. -Head CT without acute abnormality to explain the patient's alteration in mental status. I reviewed her laboratory studies, which show no leukocytosis, stable anemia at 8.7, no thrombocytopenia. Chemistry panel reveals no significant electrolyte derangements, evidence of kidney dysfunction or liver disease. Her ethanol is quite elevated at 335. Troponin was negative. The patient will require reassessment once she has metabolized and returned to a neurological baseline. I signed out care of this patient to the oncoming provider prior to this reassessment. She would likely benefit from the dance coach given her alcohol use disorder. She is expected to arrive for her rescheduled court date tomorrow at noon, and has paperwork reflecting that with the bedside nurse. All further care per the oncoming provider. Shirley Marquez MD Quality:SDOH Health Related Social Needs: Health related social needs risk of homeless transpo insecurity material hardship house/econ circumstance lonely/isolated Health related social needs details Patient is currently living alone in her car. PFSH All Active Problems (Updated 09/03/24 @ 16:59 by Shirley Marquez MD) Alcohol intoxication (Acute) Alcohol use disorder in remission (Acute) Anemia (Chronic) Alcohol intoxication in active alcoholic (Acute) CKD (chronic kidney disease) (Chronic) Anemia (Chronic) Depression with anxiety (Chronic) Abdominal fluid collection (Acute) Dyslipidemia (Acute) Abdominal pain, chronic, left upper quadrant (Acute) Chronic upper gastrointestinal bleeding (Acute) Cyst and pseudocyst of pancreas (Acute) Anemia (Chronic) Anxiety (Chronic) DUB (dysfunctional uterine bleeding) (Acute) Impaired fasting blood sugar (Acute 08/01/05) Obesity, unspecified (Acute 05/31/11) Atypical squamous cells of undetermined significance (ASC-US) on cervical Pap smear (Acute 08/05/09) ASCUS 08/05/09; 05/31/2011 Spinal stenosis of lumbar region (Acute 01/11/10) LS spine surg; Dr Sebastian Walker Tobacco dependence (Acute 08/01/05) Medical History Pulmonary embolus Helicobacter pylori (H. pylori) Chronic pain (02/20/09) chronic tramadol rx, back pain, sciatica despite LS surg 2009. Depression (04/03/15) Sertaline in the past with good relief of sx but then developed intolerable adverse rxns (nausea, flushing) Started on venlafaxine 03/2015 PHQ9 score = 9, indicating mild depression 03/2015 Anemia COPD (chronic obstructive pulmonary disease) HTN (hypertension), benign Spinal stenosis Lumbar region Surgical History History of esophagogastroduodenoscopy (EGD) (~08/05/24) w bx. per report-negative for H.Pylori Internal injury, spleen, closed with IR embolization Back surgery L5-S1 decompression 2009 Family History Mother , lung cancer at age 50. No problems noted. Father , MVA No problems noted. Other Lung cancer Social History Smoking/Tobacco Use Status: Current every day Tobacco Type: cigarettes Smoking risk assessment performed?: Yes Alcohol Intake: current Alcohol Intake frequency: 3 or more drinks per day Alcohol type: beer and hard liquor Drug use: Never Substance use type: does not use Housing: other Do you feel safe at home: Yes Do you feel safe in your relationship?: Yes
[2024-09-03 14:01] LABS: HCT 28.3 % (36.0-46.0); HGB 8.7 g/dL (11.2-15.7); MCH 30.0 pg (27.0-33.0); MCHC 30.7 % (32.0-36.0); MCV 98 fL (80-95); MPV 9.7 fL (8.0-11.0); Platelet Count 465 10^3/uL (130-400); RBC 2.90 10^6/uL (3.93-5.22); RDW 20.2 % (11.7-14.6); RDW-SD 73.9 fL; WBC 5.57 10^3/uL (4.4-10.8)
[2024-09-03 14:02] LABS: Abs Immature Grans 0.02 10^3/uL (0.0-0.06); Immature Grans % 0.4 %
[2024-09-03 14:20] LABS: Anisocytosis 2+; Microcytosis 1+
[2024-09-03 14:30] LABS: ALT 20 U/L (14-59); AST 20 U/L (15-37); Albumin 3.0 g/dL (3.4-5.0); Alkaline Phosphatase 58 U/L (46-116); Anion Gap 13.4 mmol/L (3-11); BUN 19 mg/dL (7-18); Bilirubin, Total 0.1 mg/dL (0.2-1.0); CO2 23.6 mmol/L (21.0-32.0); Calcium 8.2 mg/dL (8.5-10.1); Chloride 109 mmol/L (98-107); Estimated GFR 86.42 (mL/min/1.73m2); Glucose 92 mg/dL (74-106); Magnesium 2.3 mg/dL (1.8-2.4); Potassium 4.2 mmol/L (3.5-5.1); Sodium 146 mmol/L (136-145); Total Protein 6.7 g/dL (6.4-8.2); Troponin I 14 ng/L (<or=51)
[2024-09-03 14:31] LABS: INR 1.0 (0.9-1.1); Prothrombin Time 10.2 sec (9.1-11.1)
[2024-09-03 15:33] LABS: Troponin I 14 ng/L (<or=51)
--- NOTE | 2024-09-03 18:08 | W.EDPROG ---
Date of service: 09/03/24 Time of Service: 18:08 Medical Decision Making Patient signed out to me pending reassessment when she is clinically sober. She is currently sitting up in the bed awake, alert and oriented x 4 with a clear speech. She denies any headaches, chest pain, abdominal pain, fevers or chills, no vomiting. She is walking with a steady gait. Discussed that she had testing done that did not show any concerning acute findings. She is stable for discharge and will follow-up with her PCP, return precautions given Quality:SDOH Health Related Social Needs: Health related social needs risk of homeless transpo insecurity material hardship house/econ circumstance lonely/isolated Health related social needs details Patient is currently living alone in her car. Discharge Plan Disposition Patient Disposition: Home Condition: Stable Discharge Details Clinical Impression: Alcohol intoxication Primary Care Provider: Paula Barboza ED Provider: Christopher Aguiar [place] Meds and New Rx's Prescriptions: Continued lisinopril 20 mg tablet 20 mg PO DAILY Qty: 90 3RF Spiriva Respimat 1.25 mcg/actuation mist 2 puff inhalation DAILY Qty: 4 12RF albuterol sulfate [Ventolin HFA] 90 mcg/actuation HFA aerosol inhaler See Rx Instructions .ROUTE .COMPLEX Qty: 18 12RF Dose Instruction: INHALE TWO PUFFS BY MOUTH EVERY 4 HOURS NEEDED Rx Instructions: INHALE TWO PUFFS BY MOUTH EVERY 4 HOURS NEEDED ferrous sulfate 325 mg (65 mg iron) tablet 325 mg PO DAILY Qty: 30 0RF folic acid 1 mg tablet 1 mg PO DAILY Qty: 30 0RF hydroxyzine HCl 25 mg tablet 25 mg PO TID PRN (Reason: anxiety) Qty: 180 1RF (DME) Hand Held Nebulizer See Rx Instructions .Route .MEDSUPPLY Qty: 1 0RF Rx Instructions: As directed (DME) POCKET CHAMBER Spacer See Rx Instructions .ROUTE .MEDSUPPLY Qty: 1 0RF Rx Instructions: As directed quetiapine 100 mg tablet See Rx Instructions .ROUTE .COMPLEX Qty: 135 0RF Dose Instruction: TAKE 1 & 1/2 TABLETS BY MOUTH AT BEDTIME DAILY Patient Comments: patient ran out Rx Instructions: TAKE 1 & 1/2 TABLETS BY MOUTH AT BEDTIME DAILY trazodone 50 mg tablet See Rx Instructions .ROUTE .COMPLEX Qty: 135 1RF Dose Instruction: TAKE 1 & 1/2 TABLETS BY MOUTH DAILY AT BEDTIME NEEDED FOR SLEEP Rx Instructions: TAKE 1 & 1/2 TABLETS BY MOUTH DAILY AT BEDTIME NEEDED FOR SLEEP pantoprazole [Protonix] 40 mg tablet,delayed release (DR/EC) 40 mg PO BID Qty: 60 0RF propranolol 20 mg tablet 20 mg PO BID Patient Comments: TAKE ONE TABLET BY MOUTH TWICE A DAY oxycodone 5 mg tablet 5 mg PO QID PRNQty: 10 0RF (DME) nebulizers Misc See Rx Instructions .ROUTE .MEDSUPPLY Qty: 1 0RF Rx Instructions: As directed thiamine HCl (vitamin B1) 100 mg tablet 100 mg PO DAILY Patient Comments: TAKE ONE TABLET BY MOUTH EVERY DAY multivitamin [Multiple Vitamins] Tablet 1 tab PO DAILY Qty: 0 0RF ipratropium-albuterol 0.5 mg-3 mg(2.5 mg base)/3 mL Solution For Nebulization 3 ml UPD Q6H PRN (Reason: Wheezing) Qty: 24 2RF naltrexone 50 mg Tablet 50 mg PO DAILY Qty: 30 2RF topiramate 50 mg Tablet 50 mg PO HS Qty: 30 0RF budesonide-formoterol [Symbicort] 160-4.5 mcg/actuation Hfa Aerosol Inhaler 2 puff inhalation BID Qty: 1 2RF Discharge Instructions Additional Instructions: Your lab work and imaging did not show any concerning findings or significant changes from your baseline. Follow-up with your primary care provider in 1 to 2 weeks. Try to limit alcohol to 1-2 drinks per day. If you feel more ill or feel you are suffering from an emergent medical process return to the emergency department for reevaluation.
== END 2024-09-03 19:53 | disposition home or self-care (01) ==
PROVIDERS: Emergency Medicine; Emergency Provider Emergency Medicine; PCP Nurse Practitioner
DX: F10.120 Alcohol abuse with intoxication, uncomplicated (principal); R41.82 Altered mental status, unspecified; I10 Essential (primary) hypertension; J44.9 Chronic obstructive pulmonary disease, unspecified; F17.210 Nicotine dependence, cigarettes, uncomplicated; Z86.711 Personal history of pulmonary embolism; Y90.8 Blood alcohol level of 240 mg/100 ml or more
CPT/HCPCS: 00123; 80053; 99284; 70450; 80320; 83735; 84484; 85025; 85610

== ENCOUNTER 2024-09-27 22:00 | Emergency (ER) | payer MEDICAID, SELFPAY ==
[2024-09-27 22:06] VITALS: BP 100/56; PULSE 94; RESP 30; TEMP 36; O2SAT 98
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
== END 2024-09-28 06:25 | disposition home or self-care (01) ==
PROVIDERS: Emergency Provider Student in an Organized Health Care Education/Training Program; PCP Nurse Practitioner
DX: F10.129 Alcohol abuse with intoxication, unspecified; Z59.82 Transportation insecurity; Z59.89 Other problems related to housing and economic circumstances; Z59.01 Sheltered homelessness
CPT/HCPCS: 99283 ×2

== ENCOUNTER 2024-10-13 23:32 | Inpatient (IN) | payer MEDICAID, SELFPAY ==
[2024-10-13 23:33] VITALS: BP 77/38; PULSE 80; RESP 22; O2SAT 94
[2024-10-13 23:35] VITALS: PULSE 80; RESP 17; O2SAT 90
[2024-10-13 23:37] VITALS: BP 77/38; PULSE 77; PULSE 78; RESP 17; O2SAT 90
[2024-10-13 23:40] VITALS: BP 77/38; PULSE 75; PULSE 80; RESP 16; RESP 17; RESP 22; TEMP 36; O2SAT 92; O2SAT 94
[2024-10-13 23:45] VITALS: BP 68/37; PULSE 73; RESP 18; O2SAT 91
--- NOTE | 2024-10-13 23:45 | RT.EKG_ITS ---
APPROVED REPORT Exam: Resting ECG Reason for Exam: SOB Patient Location: E HR:75 bpm ECG Measurements Heart Rate [address] 143 P 17 QRSd 96 QRS 57 QT 431 T 59 QTc 483 Conclusion Sinus rhythm...normal P axis, V-rate 60- 99 Low voltage, precordial leads...precordial leads <1.0mV Normal [place]/Interval Normal ST
[2024-10-13 23:50] VITALS: PULSE 77; PULSE 78; RESP 17; O2SAT 96
[2024-10-14] VITALS (27 sets, daily range): BP systolic 79–164; BP diastolic 40–92; PULSE 74–102; RESP 14–32; TEMP 36.1–36.6; O2SAT 85–96
--- NOTE | 2024-10-14 | DI.RAD_ITS ---
Exam(s) XR PORTABLE CHEST AP EXAM: XR PORTABLE CHEST AP CLINICAL HISTORY: SOB TECHNIQUE: 2D digital imaging was performed of the chest. One image was obtained. An AP view was obtained. COMPARISON: CR PORTABLE CHEST ONE VIEW from 08/02/2017 CR XR PORTABLE CHEST AP from 03/16/2021 CR,XR XR PORTABLE CHEST AP from 04/24/2024 CR,XR XR CHEST 2V PA LATERAL from 07/22/[address] THORAX ABD/PEL CTA from 08/04/[address] ABDOMEN PELVIS CTA from 08/24/2024 FINDINGS: MEDIASTINUM: Normal. HEART: Normal. PULMONARY VASCULATURE: Normal. LUNGS: There are no focal consolidating infiltrates present. The lungs appear stable compared to prior examinations. PLEURAL SPACE: No pleural effusion or pneumothorax. BONE:Within normal limits for the patient's age. OTHER FINDINGS:Normal. IMPRESSION: 1. No focal consolidating infiltrates are present. 2. The preliminary [facility] report was reviewed. DATA REPOSITORY: RADIATION DOSE DELIVERED:
--- NOTE | 2024-10-14 00:09 | W.ED.GENAD ---
Discharge Plan Disposition Patient Disposition: Admit to [facility] Condition: Fair Discharge Details Clinical Impression: COVID, Hypotension, ASIA (acute kidney injury) Primary Care Provider: Paula Barboza ED Provider: Elio Navarrete [place] Meds and New Rx's Prescriptions: No Action lisinopril 20 mg tablet 20 mg PO DAILY Qty: 90 3RF Spiriva Respimat 1.25 mcg/actuation mist 2 puff inhalation DAILY Qty: 4 12RF albuterol sulfate [Ventolin HFA] 90 mcg/actuation HFA aerosol inhaler See Rx Instructions .ROUTE .COMPLEX Qty: 18 12RF Dose Instruction: INHALE TWO PUFFS BY MOUTH EVERY 4 HOURS NEEDED Rx Instructions: INHALE TWO PUFFS BY MOUTH EVERY 4 HOURS NEEDED ferrous sulfate 325 mg (65 mg iron) tablet 325 mg PO DAILY Qty: 30 0RF folic acid 1 mg tablet 1 mg PO DAILY Qty: 30 0RF hydroxyzine HCl 25 mg tablet 25 mg PO TID PRN (Reason: anxiety) Qty: 180 1RF (DME) Hand Held Nebulizer See Rx Instructions .Route .MEDSUPPLY Qty: 1 0RF Rx Instructions: As directed (DME) POCKET CHAMBER Spacer See Rx Instructions .ROUTE .MEDSUPPLY Qty: 1 0RF Rx Instructions: As directed quetiapine 100 mg tablet See Rx Instructions .ROUTE .COMPLEX Qty: 135 0RF Dose Instruction: TAKE 1 & 1/2 TABLETS BY MOUTH AT BEDTIME DAILY Patient Comments: patient ran out Rx Instructions: TAKE 1 & 1/2 TABLETS BY MOUTH AT BEDTIME DAILY trazodone 50 mg tablet See Rx Instructions .ROUTE .COMPLEX Qty: 135 1RF Dose Instruction: TAKE 1 & 1/2 TABLETS BY MOUTH DAILY AT BEDTIME NEEDED FOR SLEEP Rx Instructions: TAKE 1 & 1/2 TABLETS BY MOUTH DAILY AT BEDTIME NEEDED FOR SLEEP pantoprazole [Protonix] 40 mg tablet,delayed release (DR/EC) 40 mg PO BID Qty: 60 0RF propranolol 20 mg tablet 20 mg PO BID Patient Comments: TAKE ONE TABLET BY MOUTH TWICE A DAY oxycodone 5 mg tablet 5 mg PO QID PRNQty: 10 0RF (DME) nebulizers Misc See Rx Instructions .ROUTE .MEDSUPPLY Qty: 1 0RF Rx Instructions: As directed thiamine HCl (vitamin B1) 100 mg tablet 100 mg PO DAILY Patient Comments: TAKE ONE TABLET BY MOUTH EVERY DAY multivitamin [Multiple Vitamins] Tablet 1 tab PO DAILY Qty: 0 0RF ipratropium-albuterol 0.5 mg-3 mg(2.5 mg base)/3 mL Solution For Nebulization 3 ml UPD Q6H PRN (Reason: Wheezing) Qty: 24 2RF naltrexone 50 mg Tablet 50 mg PO DAILY Qty: 30 2RF topiramate 50 mg Tablet 50 mg PO HS Qty: 30 0RF budesonide-formoterol [Symbicort] 160-4.5 mcg/actuation Hfa Aerosol Inhaler 2 puff inhalation BID Qty: 1 2RF HPI General Mode of arrival: EMS. Date/Time Provider Initiated Documentation: 10/13/24 23:40. Limitations to Documentation: no limitations. Information obtained by: patient, RN notes reviewed and old records reviewed. HPI Narrative: Patient presents to ED by ambulance with complaint of difficulty breathing, weakness, dizziness. Patient with history of COPD. Had a at home COVID test that was faintly positive today. She does not think her cough is any worse than usual though prison staff felt it was and requested to do COVID test. Patient's breathing improved after DuoNeb given by EMS. She was found to be hypotensive in the field and IV started with fluids. She denies having any type of chest pain, abdominal pain, vomiting or diarrhea. She has not had a fever that she is aware of. Denies any syncope, headache, neurologic change. Related Data Home Medications ?Medication ?Instructions ?Recorded ?Confirmed inhalational spacing device #1 ea 09/28/20 08/24/24 (POCKET CHAMBER spacer) nebulizers #1 ea 03/16/21 08/24/24 lisinopril 20 mg tablet 20 mg PO DAILY #90 tab-caps 11/27/23 08/24/24 tiotropium bromide 1.25 2 puff inhalation DAILY #4 grams 11/27/23 08/24/24 mcg/actuation mist for inhalation (Spiriva Respimat) quetiapine 100 mg tablet See Rx Instructions .Route 06/03/24 08/24/24 .COMPLEX #135 tabs Hand Held Nebulizer #1 ea 06/21/24 08/24/24 albuterol sulfate 90 mcg/actuation See Rx Instructions .Route 06/21/24 08/24/24 aerosol inhaler (Ventolin HFA) .COMPLEX #18 grams ferrous sulfate 325 mg (65 mg 325 mg PO DAILY #30 tabs 06/21/24 08/24/24 iron) tablet folic acid 1 mg tablet 1 mg PO DAILY #30 tabs 06/21/24 08/24/24 hydroxyzine HCl 25 mg tablet 25 mg PO TID PRN anxiety #180 tabs 06/21/24 08/24/24 trazodone 50 mg tablet See Rx Instructions .Route 07/01/24 08/24/24 .COMPLEX #135 tabs thiamine HCl (vitamin B1) 100 mg 100 mg PO DAILY 07/24/24 08/24/24 tablet budesonide-formoterol HFA 160 2 puff inhalation BID #1 inh 07/27/24 08/24/24 mcg-4.5 mcg/actuation aerosol inhaler (Symbicort) ipratropium 0.5 mg-albuterol 3 mg 3 ml UPD Q6H PRN Wheezing #24 pkgs 07/27/24 08/24/24 (2.5 mg base)/3 mL nebulization soln multivitamin (Multiple Vitamins 1 tab PO DAILY #0 tabs 07/27/24 08/24/24 tablet) naltrexone 50 mg tablet 50 mg PO DAILY #30 tabs 07/27/24 08/24/24 topiramate 50 mg tablet 50 mg PO HS #30 tabs 07/27/24 08/24/24 pantoprazole 40 mg tablet,delayed 40 mg PO BID #60 tabs 08/06/24 08/24/24 release (Protonix) propranolol 20 mg tablet 20 mg PO BID 08/25/24 08/25/24 oxycodone 5 mg tablet 5 mg PO QID PRN #10 tabs 08/31/24 Previous Rx's ?Medication ?Instructions ?Recorded inhalational spacing device #1 ea 09/28/20 (POCKET CHAMBER spacer) nebulizers #1 ea 03/16/21 lisinopril 20 mg tablet 20 mg PO DAILY #90 tab-caps 11/27/23 tiotropium bromide 1.25 2 puff inhalation DAILY #4 grams 11/27/23 mcg/actuation mist for inhalation (Spiriva Respimat) quetiapine 100 mg tablet See Rx Instructions .Route 06/03/24 .COMPLEX #135 tabs Hand Held Nebulizer #1 ea 06/21/24 albuterol sulfate 90 mcg/actuation See Rx Instructions .Route 06/21/24 aerosol inhaler (Ventolin HFA) .COMPLEX #18 grams ferrous sulfate 325 mg (65 mg 325 mg PO DAILY #30 tabs 06/21/24 iron) tablet folic acid 1 mg tablet 1 mg PO DAILY #30 tabs 06/21/24 hydroxyzine HCl 25 mg tablet 25 mg PO TID PRN anxiety #180 tabs 06/21/24 trazodone 50 mg tablet See Rx Instructions .Route 07/01/24 .COMPLEX #135 tabs budesonide-formoterol HFA 160 2 puff inhalation BID #1 inh 07/27/24 mcg-4.5 mcg/actuation aerosol inhaler (Symbicort) ipratropium 0.5 mg-albuterol 3 mg 3 ml UPD Q6H PRN Wheezing #24 pkgs 07/27/24 (2.5 mg base)/3 mL nebulization soln multivitamin (Multiple Vitamins 1 tab PO DAILY #0 tabs 07/27/24 tablet) naltrexone 50 mg tablet 50 mg PO DAILY #30 tabs 07/27/24 topiramate 50 mg tablet 50 mg PO HS #30 tabs 07/27/24 pantoprazole 40 mg tablet,delayed 40 mg PO BID #60 tabs 08/06/24 release (Protonix) oxycodone 5 mg tablet 5 mg PO QID PRN #10 tabs 08/31/24 Allergies Allergy/AdvReac Type Severity Reaction Status Date / Time hydromorphone (From Dilaudid) Allergy Severe Itching Verified 09/03/24 13:24 oxycodone AdvReac Unknown TERRIBLE Verified 09/03/24 13:24 DREAMS General Stated Complaint: SOB ALISTAIR: 3 Exam Narrative Exam Narrative: Const: WDWN female in NAD. VS per triage. HEENT: NC/AT. Normal facial exam. Neck: Supple. Trachea midline. Lungs: Normal respiratory effort. Lungs are mostly clear, rhonchi at the bases. Cor: RRR without murmur. Good radial pulses. GI: Soft/ND/NT. Neuro: A+O x 3. Normal speech, mentation, gait. Cranial nerves II - XII grossly intact. No gross motor or sensory deficit. Ext: No C/C/E. Course Vital Signs Vital signs: Vital Signs Pulse 80 10/13/24 23:33 Respiratory Rate 22 10/13/24 23:33 Blood Pressure 77/38 L 10/13/24 23:33 Pulse Oximetry 94 10/13/24 23:33 Temperature 96.8 F L 10/13/24 23:40 Temperature Source Tympanic 10/13/24 23:40 Pulse 80 10/13/24 23:40 Respiratory Rate 16 10/13/24 23:40 Respiratory Effort Normal, Non-Labored 10/13/24 23:40 Respiratory Depth Normal 10/13/24 23:40 Respiratory Pattern Normal 10/13/24 23:40 Blood Pressure 77/38 L 10/13/24 23:40 Blood Pressure Position Sitting 10/13/24 23:40 Pulse Oximetry 94 10/13/24 23:40 Oxygen Delivery Method Room Air 10/13/24 23:40 Oxygen Flow Rate 0 10/13/24 23:33 Pain Level 5 10/13/24 23:40 Medical Decision Making Patient presenting to ED with a reported home test positive for COVID, difficulty breathing and found to have low blood pressure in the field. Breathing appears improved after DuoNeb. Small IV is in her hand which EMS was able to get. Fluids are running and slowly. Patient is not tachycardic. She is mentating appropriately. Saturations are normal and lungs relatively clear except for rhonchi in the bases. Will obtain better IV access, Fluvid swab, labs, portable chest x-ray and EKG. Start fluid resuscitation once better access obtained. Patient's white count is normal. Hemoglobin is low but stable. VBG with a normal pH at 7.32 a pCO2 of 39 and a bicarb of 20 with lactic acid of 2.2. She has evidence of ASIA with a creatinine of 1.5, baseline around 0.8. Electrolytes are unremarkable. Troponin normal. Fluvid swab positive for COVID. Chest x-ray without infiltrate, edema, pneumothorax per my read. EKG sinus rhythm with no acute ST changes noted. She is not requiring oxygen but is requiring fluid resuscitation. She will receive remdesivir. Will hold off on steroids for now. Discussed with hospitalist who accepts patient for admission. Medical Records Medical records reviewed: Yes I reviewed the patient's medical records. Imaging Data Radiologic Study: Attestation: I personally reviewed and interpreted this imaging study as follows: Imaging: X-Ray Lab Data Lab results reviewed: Yes I reviewed the patient's lab results. ECG Data Attestation: I personally reviewed and interpreted this ECG (s) as follows: Prior ECG tracings: available for review Quality:SDOH Health Related Social Needs: Health related social needs risk of homeless transpo insecurity material hardship house/econ circumstance lonely/isolated Health related social needs details Patient is currently living alone in her car. Critical Care Time Critical Care Time Critical Care Time: Yes Total Critical Care Time: 40 Attestation: Upon my evaluation, this patient had a high probability of imminent or life-threatening deterioration, which required my direct attention, intervention, and personal management. I have personally provided 40 minutes of critical care time exclusive of time spent on separately billable procedures. Time includes monitoring for potential decompensation, ordering of tests and medications, review of laboratory and radiology results, discussion with consultants and documentation . Interventions were performed as documented above in procedures. PFSH All Active Problems (Updated 10/14/24 @ 02:08 by Elio Navarrete MD) ASIA (acute kidney injury) (Acute) Hypotension (Acute) COVID (Acute) Alcohol intoxication (Acute) Alcohol use disorder in remission (Acute) Anemia (Chronic) Alcohol intoxication in active alcoholic (Acute) CKD (chronic kidney disease) (Chronic) Anemia (Chronic) Depression with anxiety (Chronic) Abdominal fluid collection (Acute) Dyslipidemia (Acute) Abdominal pain, chronic, left upper quadrant (Acute) Chronic upper gastrointestinal bleeding (Acute) Cyst and pseudocyst of pancreas (Acute) Anxiety (Chronic) DUB (dysfunctional uterine bleeding) (Acute) Impaired fasting blood sugar (Acute 08/01/05) Obesity, unspecified (Acute 05/31/11) Atypical squamous cells of undetermined significance (ASC-US) on cervical Pap smear (Acute 08/05/09) ASCUS 08/05/09; 05/31/2011 Spinal stenosis of lumbar region (Acute 01/11/10) LS spine surg; Dr Sebastian Walker Tobacco dependence (Acute 08/01/05) Medical History Pulmonary embolus Helicobacter pylori (H. pylori) Chronic pain (02/20/09) chronic tramadol rx, back pain, sciatica despite LS surg 2009. Depression (04/03/15) Sertaline in the past with good relief of sx but then developed intolerable adverse rxns (nausea, flushing) Started on venlafaxine 03/2015 PHQ9 score = 9, indicating mild depression 03/2015 Anemia COPD (chronic obstructive pulmonary disease) HTN (hypertension), benign Spinal stenosis Lumbar region Surgical History History of esophagogastroduodenoscopy (EGD) (~08/05/24) w bx. per report-negative for H.Pylori Internal injury, spleen, closed with IR embolization Back surgery L5-S1 decompression 2009 Family History Mother , lung cancer at age 50. No problems noted. Father , MVA No problems noted. Other Lung cancer Social History Smoking/Tobacco Use Status: Current every day Tobacco Type: cigarettes Smoking risk assessment performed?: Yes Alcohol Intake: current Alcohol Intake frequency: 3 or more drinks per day Alcohol type: beer and hard liquor Drug use: Never Substance use type: does not use Details: last drink about 3 weeks ago. 10/13/24 Housing: other Do you feel safe at home: Yes Do you feel safe in your relationship?: Yes
[2024-10-14 00:12] LABS: BE (Venous) -6 mmol/L (-2-3); HCO3 (Venous) 20 mmol/L (23-28); O2 Sat (Venous) 91 %; TCO2 (Venous) 20 mmol/L (24-29); pCO2 (Venous) 39 mmHg (41-51); pO2 (Venous) 63 mmHg
[2024-10-14 00:13] LABS: Abs Immature Grans 0.04 10^3/uL (0.0-0.06); HCT 24.7 % (36.0-46.0); HGB 7.2 g/dL (11.2-15.7); Immature Grans % 0.5 %; MCH 27.2 pg (27.0-33.0); MCHC 29.1 % (32.0-36.0); MCV 93 fL (80-95); MPV 9.9 fL (8.0-11.0); Platelet Count 372 10^3/uL (130-400); RBC 2.65 10^6/uL (3.93-5.22); RDW 20.0 % (11.7-14.6); RDW-SD 67.9 fL; WBC 8.52 10^3/uL (4.4-10.8)
--- NOTE | 2024-10-14 00:24 | DI.VRAD_ITS ---
PROCEDURE INFORMATION: Exam: XR Chest Exam date and time: 10/14/2024 12:11 AM Age: 54 years old Clinical indication: Shortness of breath; Additional info: SOB TECHNIQUE: Imaging protocol: Radiologic exam of the chest. Views: 1 view. COMPARISON: CT THORAX ABD/PEL CTA 08/04/2024 4:21 PM FINDINGS: Lungs: No gross focal pulmonary consolidation is seen. There is suggestion of parahilar peribronchial thickening. Pleural spaces: No pleural effusion or pneumothorax is demonstrated. Heart/Mediastinum: The heart appears normal in size. Bones/joints: The visualized bony structures appear grossly intact. IMPRESSION: 1. No pulmonary consolidation or pleural effusion demonstrated. 2. Suggestion of parahilar peribronchial thickening. Peribronchial thickening is a nonspecific finding but can be seen in the setting of a viral infection with bronchiolitis/bronchitis. Clinical correlation is recommended. Dictated and Authenticated by: Kye Dominguez MD. Orderin Landon Ballard MD
[2024-10-14 00:35] LABS: ALT 19 U/L (14-59); AST 43 U/L (15-37); Albumin 3.2 g/dL (3.4-5.0); Alkaline Phosphatase 63 U/L (46-116); Anion Gap 11.1 mmol/L (3-11); BUN 27 mg/dL (7-18); Bilirubin, Total 0.2 mg/dL (0.2-1.0); CO2 22.9 mmol/L (21.0-32.0); Calcium 8.4 mg/dL (8.5-10.1); Chloride 105 mmol/L (98-107); Estimated GFR 40.65 (mL/min/1.73m2); Glucose 129 mg/dL (74-106); Magnesium 2.1 mg/dL (1.8-2.4); Potassium 4.3 mmol/L (3.5-5.1); Sodium 139 mmol/L (136-145); Total Protein 6.9 g/dL (6.4-8.2); Troponin I 8 ng/L (<or=51)
[2024-10-14 00:35] LABS: RSV PCR Negative (Negative)
[2024-10-14 00:36] LABS: Anisocytosis 1+; Hypochromasia 2+
[2024-10-14 00:40] LABS: COVID-19 PCR Positive (Negative)
[2024-10-14] MEDS: Normal Saline 1,000 ML 1000 ML IV ×2 (01:19→03:51)
--- NOTE | 2024-10-14 01:52 | W.PM.HP.N ---
Date of service: 10/14/24 Time of Service: 01:15 Assessment and Plan Assessment and plan (1) Acute renal injury: Status: Acute Assessment and plan: Patient is not septic ASIA likely secondary to dehydration Continue fluid resuscitation, follow labs (2) Hypotension: Status: Acute Assessment and plan: Improved with fluid boluses Resolved by the time she was on the medical floor (3) COVID-19 virus infection: Status: Acute Assessment and plan: Positive home test, positive test in ED Remdesivir started in the ED, indicated due to high risk of severe illness AST mildly elevated, monitor CMP with use of remdesivir Isolation precautions Steroids not indicated as she is not on O2 Duonebs Anticoagulation with LMWH (4) Depression with anxiety: Status: Chronic Assessment and plan: Continue quetiapine, topiramate, trazodone (5) Alcohol dependence: Status: Acute Assessment and plan: Checking UDS and BAL after arrival on the medical floor CIWA protocol History of Present Illness History of Present Illness Chief Complaint: cough Narrative: Pratima Rolle is a 54 year old undomiciled woman presenting October 13, sent in from a retirement for a worsening cough. Patient reported feeling short of breath, weak and dizzy. She did a home COVID test today that was sort of positive. She feels the cough is not a problem. She denies chest pain, abdominal pain, N/V/D. PMH includes housing instability, EtOH dependence, polysubstance abuse, asthma, hypertension, depression EMS gave duonebs which improved her breathing, and started fluids which improved her hypotension. In the ED, UDS and blood alcohol were not tested. She is afebrile. Low BP 77/38. EKG unremarkable. CXR with nonspecific perihilar thickening, no interstitials. Lactic acid 2.2. No leukocytosis. Hemoglobin 7.2 which is baseline. Anion gap elevated 11.1. Creatinine elevated 1.5 against normal baseline. BUN elevated 27. AST 43 otherwise LFTs unremarkable. She was given NS 1L bolus twice and started on remdesivir. PFSH All Active Problems (Updated 10/14/24 @ 04:55 by Freedom Mccauley MD) Alcohol dependence (Acute) Acute renal injury (Acute) COVID-19 virus infection (Acute) ASIA (acute kidney injury) (Acute) Hypotension (Acute) COVID (Acute) Alcohol intoxication (Acute) Alcohol use disorder in remission (Acute) Anemia (Chronic) Alcohol intoxication in active alcoholic (Acute) CKD (chronic kidney disease) (Chronic) Anemia (Chronic) Depression with anxiety (Chronic) Abdominal fluid collection (Acute) Dyslipidemia (Acute) Abdominal pain, chronic, left upper quadrant (Acute) Chronic upper gastrointestinal bleeding (Acute) Cyst and pseudocyst of pancreas (Acute) Anxiety (Chronic) DUB (dysfunctional uterine bleeding) (Acute) Impaired fasting blood sugar (Acute 08/01/05) Obesity, unspecified (Acute 05/31/11) Atypical squamous cells of undetermined significance (ASC-US) on cervical Pap smear (Acute 08/05/09) ASCUS 08/05/09; 05/31/2011 Spinal stenosis of lumbar region (Acute 01/11/10) LS spine surg; Dr Sebastian Walker Tobacco dependence (Acute 08/01/05) Medical History Pulmonary embolus Helicobacter pylori (H. pylori) Chronic pain (02/20/09) chronic tramadol rx, back pain, sciatica despite LS surg 2009. Depression (04/03/15) Sertaline in the past with good relief of sx but then developed intolerable adverse rxns (nausea, flushing) Started on venlafaxine 03/2015 PHQ9 score = 9, indicating mild depression 03/2015 Anemia COPD (chronic obstructive pulmonary disease) HTN (hypertension), benign Spinal stenosis Lumbar region Surgical History History of esophagogastroduodenoscopy (EGD) (~08/05/24) w bx. per report-negative for H.Pylori Internal injury, spleen, closed with IR embolization Back surgery L5-S1 decompression 2009 Family History Mother , lung cancer at age 50. No problems noted. Father , MVA No problems noted. Other Lung cancer Social History Smoking/Tobacco Use Status: Current every day Tobacco Type: cigarettes Smoking risk assessment performed?: Yes Alcohol Intake: current Alcohol Intake frequency: 3 or more drinks per day Alcohol type: beer and hard liquor Drug use: Never Substance use type: does not use Details: last drink about 3 weeks ago. 10/13/24 Housing: other Do you feel safe at home: Yes Do you feel safe in your relationship?: Yes Meds Allergies and Home Medications Allergies Allergy/AdvReac Type Severity Reaction Status Date / Time hydromorphone (From Dilaudid) Allergy Severe Itching Verified 09/03/24 13:24 oxycodone AdvReac Unknown TERRIBLE Verified 09/03/24 13:24 DREAMS Home Medications ?Medication ?Instructions ?Recorded ?Confirmed ?Type inhalational spacing device #1 ea 09/28/20 10/14/24 Rx (POCKET CHAMBER spacer) nebulizers #1 ea 03/16/21 10/14/24 Rx lisinopril 20 mg tablet 20 mg PO DAILY #90 tab-caps 11/27/23 10/14/24 Rx tiotropium bromide 1.25 2 puff inhalation DAILY #4 grams 11/27/23 10/14/24 Rx mcg/actuation mist for inhalation (Spiriva Respimat) quetiapine 100 mg tablet See Rx Instructions .Route 06/03/24 10/14/24 Rx .COMPLEX #135 tabs Hand Held Nebulizer #1 ea 06/21/24 10/14/24 Rx albuterol sulfate 90 mcg/actuation See Rx Instructions .Route 06/21/24 10/14/24 Rx aerosol inhaler (Ventolin HFA) .COMPLEX #18 grams ferrous sulfate 325 mg (65 mg 325 mg PO DAILY #30 tabs 06/21/24 10/14/24 Rx iron) tablet Held on 10/14/24. Instructions: Pt Stopped/Never Started folic acid 1 mg tablet 1 mg PO DAILY #30 tabs 06/21/24 10/14/24 Rx hydroxyzine HCl 25 mg tablet 25 mg PO TID PRN anxiety #180 tabs 06/21/24 10/14/24 Rx trazodone 50 mg tablet See Rx Instructions .Route 07/01/24 10/14/24 Rx Held on 10/14/24. .COMPLEX #135 tabs Instructions: Pt Stopped/Never Started thiamine HCl (vitamin B1) 100 mg 100 mg PO DAILY 07/24/24 10/14/24 History tablet Held on 10/14/24. Instructions: Pt Stopped/Never Started budesonide-formoterol HFA 160 2 puff inhalation BID #1 inh 07/27/24 10/14/24 Rx mcg-4.5 mcg/actuation aerosol inhaler (Symbicort) ipratropium 0.5 mg-albuterol 3 mg 3 ml UPD Q6H PRN Wheezing #24 pkgs 07/27/24 10/14/24 Rx (2.5 mg base)/3 mL nebulization soln multivitamin (Multiple Vitamins 1 tab PO DAILY #0 tabs 07/27/24 10/14/24 Rx tablet) Held on 10/14/24. Instructions: Pt Stopped/Never Started naltrexone 50 mg tablet 50 mg PO DAILY #30 tabs 07/27/24 10/14/24 Rx Held on 10/14/24. Instructions: Pt Stopped/Never Started topiramate 50 mg tablet 50 mg PO HS #30 tabs 07/27/24 10/14/24 Rx Held on 10/14/24. Instructions: Pt Stopped/Never Started pantoprazole 40 mg tablet,delayed 40 mg PO BID #60 tabs 08/06/24 10/14/24 Rx release (Protonix) Held on 10/14/24. Instructions: Pt Stopped/Never Started propranolol 20 mg tablet 20 mg PO BID 08/25/24 10/14/24 History oxycodone 5 mg tablet 5 mg PO QID PRN #10 tabs 08/31/24 10/14/24 Rx Held on 10/14/24. Instructions: Pt Stopped/Never Started Exam Narrative Exam Narrative: General: This is a fidgeting, anxious woman, lying in bed. Disheveled. HEENT: Normocephalic, atraumatic CV: RRR Resp: CTAB Abd: NTND +NBS MSK: voluntary motion x4 Neuro: Awake, alert, agitated, no focal deficits Results Labs 10/14/24 00:02 10/14/24 00:02 Labs: Laboratory Results - last 24 hr 10/13/24 10/14/24 23:40 00:02 WBC 8.52 RBC 2.65 L Hgb 7.2 L Hct 24.7 L MCV 93 MCH 27.2 MCHC 29.1 L RDW 20.0 H Plt Count 372 MPV 9.9 Immature Gran % 0.5 Neutrophils % 57.0 Lymphocytes % 28.3 Monocytes % 7.7 Eosinophils % 5.9 Basophils % 0.6 Nucleated RBC % 0.0 Absolute Neutrophils 4.86 Absolute Lymphocytes 2.41 Absolute Monocytes 0.66 Absolute Eosinophils 0.50 Absolute Basophils 0.05 RBC Morphology See Below Hypochromasia 2+ Anisocytosis 1+ VBG pH 7.32 VBG pCO2 39 L VBG pO2 63 VBG HCO3 20 L VBG Total CO2 20 L VBG O2 Saturation 91 VBG Base Excess -6 L VBG Lactate 2.2 H* Sodium 139 Potassium 4.3 Chloride 105 Carbon Dioxide 22.9 Anion Gap 11.1 H BUN 27 H Creatinine 1.5 H Est GFR (CKD-EPI 2020) 40.65 Glucose 129 H Calcium 8.4 L Magnesium 2.1 Total Bilirubin 0.2 AST 43 H ALT 19 Alkaline Phosphatase 63 Troponin I 8 Total Protein 6.9 Albumin 3.2 L COVID-19 Source Nasopharynx SARS-CoV-2 (PCR) Positive A Influenza Type A (PCR) Negative Influenza Type B (PCR) Negative RSV (PCR) Negative Last Vital Signs Temp 36.0 C L 10/13/24 23:40 Pulse 76 10/14/24 01:20 Resp 32 H 10/14/24 01:35 BP 114/74 10/14/24 01:51 Pulse Ox 91 L 10/14/24 01:20 Time Spent Time spent with Patient: 40-54 minutes Time was spent: preparing to see the patient(eg.review tests), obtaining and/or reviewing separately otained hiistory, ordering medications,tests, procedures, referring, communicating with other health home care manager, indepentently interpreting results, counseling the patient and care coordination
[2024-10-14 01:56] LABS: Troponin I 9 ng/L (<or=51)
--- NOTE | 2024-10-14 02:58 | W.PC.ACHO ---
Registration Status: REG ER Primary Language: Preferred Language: Sinhala ED Information & Data Chief Complaint SOB 10/14/24 00:09 Triage Note BIBA from home, c/o 10/13/24 23:33 difficulty breathing, did 1 neb at home, 1 neb by EMS. initial BP 74/41, improved to 86/50 with 100mls of fluid. Tested positive for covid on home test. persistent dizziness, weakness, confusion. denies abdominal pain, denies chest pain. Medical / Surgical History (Last Reviewed 10/14/24 @ 02:04 by Elio Navarrete MD) Pulmonary embolus Helicobacter pylori (H. pylori) Chronic pain (02/20/09) Depression (04/03/15) Anemia COPD (chronic obstructive pulmonary disease) HTN (hypertension), benign Spinal stenosis (Last Reviewed 10/14/24 @ 02:04 by Elio Navarrete MD) History of esophagogastroduodenoscopy (EGD) (~08/05/24) Internal injury, spleen, closed Back surgery Most Recent Vital Signs Temperature 36.0 C L 10/13/24 23:40 Temperature Source Tympanic 10/13/24 23:40 Pulse 79 10/14/24 02:24 Pulse 82 10/14/24 02:24 Respiratory Rate 22 10/14/24 02:24 Respiratory Effort Normal, Non-Labored 10/14/24 02:40 Respiratory Depth Normal 10/14/24 02:40 Respiratory Pattern Normal 10/13/24 23:40 Blood Pressure 125/64 10/14/24 02:24 Blood Pressure Mean 85 10/14/24 02:24 Blood Pressure Position Sitting 10/13/24 23:40 Pulse Oximetry 89 L 10/14/24 02:26 Oxygen Delivery Method Room Air 10/14/24 02:26 Oxygen Flow Rate 0 10/14/24 02:26 Pain Level 0 10/14/24 02:52 Allergies hydromorphone (From Dilaudid) Allergy (Severe, Verified 09/03/24 13:24) Itching Face swelling, intolerance oxycodone Adverse Reaction (Unknown, Verified 09/03/24 13:24) TERRIBLE DREAMS FROM PERCOCET, intolerance Precautions Isolation PUI 10/13/24 23:39 IV IV Catheter Type [Right Hand] Peripheral IV IV Catheter Gauge [Right Hand] 20 Diet Orders Category Date Time Status Regular/Normal [DIET] Nutrition 10/14/24 Breakfast Active Diagnostics 10/14/24 10/14/24 10/14/24 Range/Units 05:35 01:15 00:02 WBC Pending 8.52 (4.4-10.8) 10^3/uL RBC Pending 2.65 L (3.93-5.22) 10^6/uL Hgb Pending 7.2 L (11.2-15.7) g/dL Hct Pending 24.7 L (36.0-46.0) % MCV Pending 93 (80-95) fL MCH Pending 27.2 (27.0-33.0) pg MCHC Pending 29.1 L (32.0-36.0) % RDW Pending 20.0 H (11.7-14.6) % Plt Count Pending 372 (130-400) 10^3/uL MPV Pending 9.9 (8.0-11.0) fL Immature Gran % Pending 0.5 % Neutrophils % Pending 57.0 % Lymphocytes % Pending 28.3 % Monocytes % Pending 7.7 % Eosinophils % Pending 5.9 % Basophils % Pending 0.6 % Nucleated RBC % 0.0 (0.0-0.3) % Absolute Neutrophils Pending 4.86 (1.2-6.7) 10^3/uL Absolute Lymphocytes Pending 2.41 (1.2-3.4) 10^3/uL Absolute Monocytes Pending 0.66 (0.1-0.8) 10^3/uL Absolute Eosinophils Pending 0.50 (0.0-0.7) 10^3/uL Absolute Basophils Pending 0.05 (0.0-0.2) 10^3/uL RBC Morphology See Below Hypochromasia 2+ Anisocytosis 1+ VBG pH 7.32 (7.31-7.41) VBG pCO2 39 L (41-51) mmHg VBG pO2 63 mmHg VBG HCO3 20 L (23-28) mmol/L VBG Total CO2 20 L (24-29) mmol/L VBG O2 Saturation 91 % VBG Base Excess -6 L (-2-3) mmol/L VBG Lactate 2.2 H* (<or=2.0) mmol/L Sodium Pending 139 (136-145) mmol/L Potassium Pending 4.3 (3.5-5.1) mmol/L Chloride Pending 105 (98-107) mmol/L Carbon Dioxide Pending 22.9 (21.0-32.0) mmol/L Anion Gap Pending 11.1 H (3-11) mmol/L BUN Pending 27 H (7-18) mg/dL Creatinine Pending 1.5 H (0.55-1.02) mg/dL Est GFR (CKD-EPI 2020) Pending 40.65 (mL/min/1.73m2) Glucose Pending 129 H (74-106) mg/dL Calcium Pending 8.4 L (8.5-10.1) mg/dL Magnesium Pending 2.1 (1.8-2.4) mg/dL Total Bilirubin Pending 0.2 (0.2-1.0) mg/dL AST Pending 43 H (15-37) U/L ALT Pending 19 (14-59) U/L Alkaline Phosphatase Pending 63 (46-116) U/L Troponin I 9 8 (<or=51) ng/L Total Protein Pending 6.9 (6.4-8.2) g/dL Albumin Pending 3.2 L (3.4-5.0) g/dL COVID-19 Source SARS-CoV-2 (PCR) (Negative) Influenza Type A (PCR) (Negative) Influenza Type B (PCR) (Negative) RSV (PCR) (Negative) 10/13/24 Range/Units 23:40 WBC (4.4-10.8) 10^3/uL RBC (3.93-5.22) 10^6/uL Hgb (11.2-15.7) g/dL Hct (36.0-46.0) % MCV (80-95) fL MCH (27.0-33.0) pg MCHC (32.0-36.0) % RDW (11.7-14.6) % Plt Count (130-400) 10^3/uL MPV (8.0-11.0) fL Immature Gran % % Neutrophils % % Lymphocytes % % Monocytes % % Eosinophils % % Basophils % % Nucleated RBC % (0.0-0.3) % Absolute Neutrophils (1.2-6.7) 10^3/uL Absolute Lymphocytes (1.2-3.4) 10^3/uL Absolute Monocytes (0.1-0.8) 10^3/uL Absolute Eosinophils (0.0-0.7) 10^3/uL Absolute Basophils (0.0-0.2) 10^3/uL RBC Morphology Hypochromasia Anisocytosis VBG pH (7.31-7.41) VBG pCO2 (41-51) mmHg VBG pO2 mmHg VBG HCO3 (23-28) mmol/L VBG Total CO2 (24-29) mmol/L VBG O2 Saturation % VBG Base Excess (-2-3) mmol/L VBG Lactate (<or=2.0) mmol/L Sodium (136-145) mmol/L Potassium (3.5-5.1) mmol/L Chloride (98-107) mmol/L Carbon Dioxide (21.0-32.0) mmol/L Anion Gap (3-11) mmol/L BUN (7-18) mg/dL Creatinine (0.55-1.02) mg/dL Est GFR (CKD-EPI 2020) (mL/min/1.73m2) Glucose (74-106) mg/dL Calcium (8.5-10.1) mg/dL Magnesium (1.8-2.4) mg/dL Total Bilirubin (0.2-1.0) mg/dL AST (15-37) U/L ALT (14-59) U/L Alkaline Phosphatase (46-116) U/L Troponin I (<or=51) ng/L Total Protein (6.4-8.2) g/dL Albumin (3.4-5.0) g/dL COVID-19 Source Nasopharynx SARS-CoV-2 (PCR) Positive A (Negative) Influenza Type A (PCR) Negative (Negative) Influenza Type B (PCR) Negative (Negative) RSV (PCR) Negative (Negative) Intake and Output - 24 Hour Total 10/13/24 23:31 thru 10/14/24 02:54 Intake Total 283.333 Balance 283.333 Weight 82.554 kg Intake: IV 283.333 Other: # Voids 2 Falls Risk Assessment History of Falls Previous History 10/13/24 23:40 Contributing Factors Unstable,Impairments 10/13/24 23:40 Ambulatory Aids Uses ambulatory device + 10/13/24 23:40 Tubes/Lines With any additional score 10/13/24 23:40 Gait Evaluation W/any additional score 10/13/24 23:40 Cognition No cognitive impairment 10/13/24 23:40 Fall Total Score 91 10/13/24 23:40 Level of Risk Maximum Risk 10/13/24 23:40 Problems (Last Reviewed 10/14/24 @ 02:04 by Elio Navarrete MD) ASIA (acute kidney injury) (Acute) Hypotension (Acute) COVID (Acute) v v v v v v v v v Sending and/or Receiving Nurses: Please use comment section below to note any information pertinent to the patient hand-off not included above. Information / Comments: Report taken from ED RN Sara, patient is positive w/ Covid, confused and disoriented. Restless at this time, ED staff trying to get an IV access. Patient is on room air, O2 Sat is 89%. Received 500 cc NS bolus, pending another liter of bolus and remdesivir. Report received from:
[2024-10-14] MEDS: REMDESIVIR 200 MG in Normal Saline 250 ML 250 MG IVPB (03:58)
[2024-10-14] MEDS: Water,Injection,Sterile 10 ML VIAL (04:06)
[2024-10-14 06:50] LABS: Abs Immature Grans 0.04 10^3/uL (0.0-0.06); HCT 24.6 % (36.0-46.0); HGB 7.2 g/dL (11.2-15.7); Immature Grans % 1.0 %; MCH 27.6 pg (27.0-33.0); MCHC 29.3 % (32.0-36.0); MCV 94 fL (80-95); MPV 10.3 fL (8.0-11.0); Platelet Count 347 10^3/uL (130-400); RBC 2.61 10^6/uL (3.93-5.22); RDW 20.0 % (11.7-14.6); RDW-SD 69.2 fL; WBC 4.15 10^3/uL (4.4-10.8)
[2024-10-14 07:07] LABS: ALT 17 U/L (14-59); AST 13 U/L (15-37); Albumin 3.1 g/dL (3.4-5.0); Alkaline Phosphatase 61 U/L (46-116); Anion Gap 11.0 mmol/L (3-11); BUN 26 mg/dL (7-18); Bilirubin, Total 0.1 mg/dL (0.2-1.0); CO2 22.0 mmol/L (21.0-32.0); Calcium 8.2 mg/dL (8.5-10.1); Chloride 109 mmol/L (98-107); Estimated GFR 58.97 (mL/min/1.73m2); Glucose 199 mg/dL (74-106); Magnesium 1.9 mg/dL (1.8-2.4); Potassium 4.5 mmol/L (3.5-5.1); Sodium 142 mmol/L (136-145); Total Protein 6.7 g/dL (6.4-8.2)
[2024-10-14 07:36] LABS: Cannabinoids THC Negative (Negative); METHADONE URINE SCREEN Negative (Negative)
--- NOTE | 2024-10-14 08:59 | INITIAL_ITS ---
Date of service: 10/14/24 Time of Service: 08:59 Care Management Initial Assmt Initial Assessment Reason for Hospitalization: Covid Functional Status/Living Situation Patient Presentation: Adrianne was admitted with Covid and hypotension. She is on Covid precautions therefore CM was unable to meet with her in person. CM was able to talk to Adrianne on the phone however and she stated she is doing well. She stated she is asymptomatic with the Covid. She attributed her cough to her COPD. Adrianne had been staying at the [facility] in [facility] and has been very happy there. She reported that they have a small group of residents and that everyone gets along. She is requesting to be discharged today and will return to the jail. 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 In addition to Adrianne, another staff member also got Covid. She is confident that she will be allowed to return. Town of Residence: [facility] Resides with: Other (in a jail) Significant Other/Family: Out of area Employment Status: Unemployed Instrumental Activities of Daily Living (ADLs): Independent Medications Medication Management: No Issues/Barriers identified Advance Directives Advance Directives: Do you have an Advance Directive: N , 09:23 AD On File at [facility]: N 08/08/13, 09:23 Date Asked 10/14/24 Today, 01:52 AD Date Reviewed COLST On File at [facility] No 08/24/24, 16:57 COLST Date Scanned Code Status Resuscitation Status Full Code Portal Pt does not currently have a portal and education provided: No Portal Education: Patient declined Insurance Coverage/Financial Issues Insurance: Medicaid Care Team Visit Care Team Role Provider Type Gregorio Smart MD MD [facility] STAFF PHYSICIAN Paula Barboza NP Primary Care Provider NURSE PRACTITIONER Elio Navarrete MD Emergency Provider [facility] STAFF PHYSICIAN Freedom Mccauley MD Admit Provider [facility] STAFF PHYSICIAN Attending Provider Discharge Potential Discharge Needs: PCP F/U Appt Anticipated Barriers to Discharge: None Identified Patient/Family Education Needs: Review discharge instructions, discuss Ask Me Three Transportation: RCT Plan: Anticipate Adrianne will be discharged back to the [facility] when medically stable. She will follow up with her PCP and plan of care and transport via RCT coordinated by [facility]. CM will follow and continue to support discharge planning efforts. Social Determinants of Health Screening Will the Patient Participate in the Screening?: Unable to obtain Do you worry about having a steady place to live?: choose not to answer In the past 12 months, have you had to go without electric, gas, oil or water in your home?: choose not to answer Has lack of transportation kept you from medical appointments or from doing things needed for daily living?: choose not to answer Has anyone in your life made you feel unsafe or unsupported?: choose not to answer How hard is it for you to pay for the very basics like food, housing, medical care, and heating? Would you say it is:: Somewhat hard If for any reason you need help with day-to-day activities such as bathing, preparing meals, shopping, managing finances, etc., do you get the help you need?: I don?t need any help How often do you feel lonely or isolated from those around you?: Never Do you speak a language other than Samoan at home?: No Does the patient want assistance with any of the above?: No Health Related Social Needs Health related social needs: material hardship(utilities) (Z59.12) and problems related to housing/economic circumstances (Z59.89) Health related social needs details: some questions not being answered properly. PFSH All Active Problems (Updated 10/14/24 @ 04:55 by Freedom Mccauley MD) Alcohol dependence (Acute) Acute renal injury (Acute) COVID-19 virus infection (Acute) ASIA (acute kidney injury) (Acute) Hypotension (Acute) COVID (Acute) Alcohol intoxication (Acute) Alcohol use disorder in remission (Acute) Anemia (Chronic) Alcohol intoxication in active alcoholic (Acute) CKD (chronic kidney disease) (Chronic) Anemia (Chronic) Depression with anxiety (Chronic) Abdominal fluid collection (Acute) Dyslipidemia (Acute) Abdominal pain, chronic, left upper quadrant (Acute) Chronic upper gastrointestinal bleeding (Acute) Cyst and pseudocyst of pancreas (Acute) Anxiety (Chronic) DUB (dysfunctional uterine bleeding) (Acute) Impaired fasting blood sugar (Acute 08/01/05) Obesity, unspecified (Acute 05/31/11) Atypical squamous cells of undetermined significance (ASC-US) on cervical Pap smear (Acute 08/05/09) ASCUS 08/05/09; 05/31/2011 Spinal stenosis of lumbar region (Acute 01/11/10) LS spine surg; Dr Sebastian Walker Tobacco dependence (Acute 08/01/05) Medical History Pulmonary embolus Helicobacter pylori (H. pylori) Chronic pain (02/20/09) chronic tramadol rx, back pain, sciatica despite LS surg 2009. Depression (04/03/15) Sertaline in the past with good relief of sx but then developed intolerable adverse rxns (nausea, flushing) Started on venlafaxine 03/2015 PHQ9 score = 9, indicating mild depression 03/2015 Anemia COPD (chronic obstructive pulmonary disease) HTN (hypertension), benign Spinal stenosis Lumbar region Surgical History History of esophagogastroduodenoscopy (EGD) (~08/05/24) w bx. per report-negative for H.Pylori Internal injury, spleen, closed with IR embolization Back surgery L5-S1 decompression 2009 Family History Mother , lung cancer at age 50. No problems noted. Father , MVA No problems noted. Other Lung cancer Social History Smoking/Tobacco Use Status: Current every day Tobacco Type: cigarettes Smoking risk assessment performed?: Yes Alcohol Intake: current Alcohol Intake frequency: 3 or more drinks per day Alcohol type: beer and hard liquor Drug use: Never Substance use type: does not use Details: last drink about 3 weeks ago. 10/13/24 Housing: other Do you feel safe at home: Yes Do you feel safe in your relationship?: Yes
[2024-10-14] MEDS: Ferrous Sulfate 325 MG TAB PO (09:08)
[2024-10-14] MEDS: Lisinopril 20 MG TAB PO (09:08)
[2024-10-14] MEDS: Enoxaparin 40 MG/0.4 ML SYR SC (09:09)
[2024-10-14] MEDS: Pantoprazole 40 MG TABCR PO (09:09)
[2024-10-14] MEDS: Normal Saline Flush 10 ML SYR IVP (09:10)
--- NOTE | 2024-10-14 12:56 | W.PM.DS.N ---
Date of service: 10/14/24 Time of Service: 12:56 DS: Diagnosis Discharge Diagnosis (1) Acute renal injury: Status: Acute (2) Hypotension: Status: Acute (3) COVID-19 virus infection: Status: Acute (4) Depression with anxiety: Status: Chronic (5) Alcohol dependence: Status: Acute Discharge Plan Disposition Patient Disposition: Home Condition: Good Discharge Details Reason For Visit: Hypotension Admit Date/Time: 10/14/24 01:42 Admit Provider: Freedom Mccauley Attending Provider: Freedom Mccauley Primary Care Provider: Paula Barboza Hospital Course Hospital Course: Patient initially presented with signs and symptoms of lightheadedness that was determined to be secondary to hypotension that improved with minimal fluid rehydration. Additionally, she was found to have COVID for which she was given 1 dose of remdesivir but did not require steroids as she was not hypoxic, did not have cough or fever. She was also found to have an ASIA with a creatinine of 1.5 then improved to 1.1 on the morning of 10/14/2024. Patient's condition rapidly improved and she felt completely back to baseline. Given that her blood pressure was also stable it was determined that she was stable for discharge home. Home Meds and New Rx's Prescriptions: Continued lisinopril 20 mg tablet 20 mg PO DAILY Qty: 90 3RF Spiriva Respimat 1.25 mcg/actuation mist 2 puff inhalation DAILY Qty: 4 12RF Patient Comments: states needs refill albuterol sulfate [Ventolin HFA] 90 mcg/actuation HFA aerosol inhaler See Rx Instructions .ROUTE .COMPLEX Qty: 18 12RF Dose Instruction: INHALE TWO PUFFS BY MOUTH EVERY 4 HOURS NEEDED Rx Instructions: INHALE TWO PUFFS BY MOUTH EVERY 4 HOURS NEEDED ferrous sulfate 325 mg (65 mg iron) tablet 325 mg PO DAILY Qty: 30 0RF folic acid 1 mg tablet 1 mg PO DAILY Qty: 30 0RF hydroxyzine HCl 25 mg tablet 25 mg PO TID PRN (Reason: anxiety) Qty: 180 1RF (DME) Hand Held Nebulizer See Rx Instructions .Route .MEDSUPPLY Qty: 1 0RF Rx Instructions: As directed (DME) POCKET CHAMBER Spacer See Rx Instructions .ROUTE .MEDSUPPLY Qty: 1 0RF Rx Instructions: As directed quetiapine 100 mg tablet See Rx Instructions .ROUTE .COMPLEX Qty: 135 0RF Dose Instruction: TAKE 1 & 1/2 TABLETS BY MOUTH AT BEDTIME DAILY Patient Comments: patient ran out Rx Instructions: TAKE 1 & 1/2 TABLETS BY MOUTH AT BEDTIME DAILY trazodone 50 mg tablet See Rx Instructions .ROUTE .COMPLEX Qty: 135 1RF Dose Instruction: TAKE 1 & 1/2 TABLETS BY MOUTH DAILY AT BEDTIME NEEDED FOR SLEEP Rx Instructions: TAKE 1 & 1/2 TABLETS BY MOUTH DAILY AT BEDTIME NEEDED FOR SLEEP pantoprazole [Protonix] 40 mg tablet,delayed release (DR/EC) 40 mg PO BID Qty: 60 0RF propranolol 20 mg tablet 20 mg PO BID Patient Comments: TAKE ONE TABLET BY MOUTH TWICE A DAY oxycodone 5 mg tablet 5 mg PO QID PRNQty: 10 0RF (DME) nebulizers Misc See Rx Instructions .ROUTE .MEDSUPPLY Qty: 1 0RF Rx Instructions: As directed thiamine HCl (vitamin B1) 100 mg tablet 100 mg PO DAILY Patient Comments: TAKE ONE TABLET BY MOUTH EVERY DAY multivitamin [Multiple Vitamins] Tablet 1 tab PO DAILY Qty: 0 0RF ipratropium-albuterol 0.5 mg-3 mg(2.5 mg base)/3 mL Solution For Nebulization 3 ml UPD Q6H PRN (Reason: Wheezing) Qty: 24 2RF naltrexone 50 mg Tablet 50 mg PO DAILY Qty: 30 2RF topiramate 50 mg Tablet 50 mg PO HS Qty: 30 0RF budesonide-formoterol [Symbicort] 160-4.5 mcg/actuation Hfa Aerosol Inhaler 2 puff inhalation BID Qty: 1 2RF Discharge Instructions Activity:: Activity as Tolerated Equipment/Supplies:: No Equipment Needed Diet:: As Tolerated Discharge Orders Discharge Orders: Discharge Order (Routine); Ordered 10/14/24 Ordered By: Gregorio Smart DS: Summary Time Spent with Patient providing and/or coordinating discharge services: Greater than 30 minutes Status at Discharge Functional status at discharge: independent ambulation Overall status at discharge: patient is back to baseline Mental Status: mental status grossly normal Speech and Movement: speech and movement normal Mood: congruent mood Affect: normal affect Quality:SDOH Health Related Social Needs: Health related social needs material hardship house/econ circumstance Health related social needs details some questions not being answered properly. Health related social needs details: some questions not being answered properly. Exam Narrative Exam Narrative: Well-appearing female sitting up in the edge of the bed no acute distress, ANO x 4, heart regular rhythm, lungs clear to auscultation bilaterally, abdomen soft, nontender, nondistended Psych Mental Status: mental status grossly normal Speech and Movement: speech and movement normal Mood: congruent mood Affect: normal affect DS: Data Vitals/I&O Vitals and I&O: Vital Signs Temperature 97.9 F 10/14/24 08:22 Temperature Source Temporal Artery Scan 10/14/24 08:22 Pulse 102 H 10/14/24 08:22 Pulse Rhythm Irregular 10/14/24 03:23 Pulse 82 10/14/24 02:24 Respiratory Rate 18 10/14/24 08:22 Respiratory Effort Non-Labored 10/14/24 03:23 Respiratory Depth Deep 10/14/24 03:23 Respiratory Pattern Irregular 10/14/24 03:23 Blood Pressure 164/92 H 10/14/24 08:22 Blood Pressure Mean 116 10/14/24 08:22 Blood Pressure Position Sitting 10/13/24 23:40 Pulse Oximetry 95 10/14/24 08:22 Oxygen Delivery Method Room Air 10/14/24 08:22 Oxygen Flow Rate 0 10/14/24 08:22 Pain Level 0 10/14/24 04:07 Intake & Output 10/13/24 10/14/24 10/14/24 17:59 05:59 17:59 Intake Total 1250.000 / 6254.035 6489 / 1000 Output Total 100 / 100 Balance 1250.000 / 1250.000 900 / 900 Weight 185 lb Intake: IV 1250.000 / 0965.156 5846 / 1000 Output: Stool 100 / 100 Other: Urine Color Yellow Urine Appearance Clear Urine Odor None Stool Size Moderate Stool Characteristics Formed # Voids 2 Data Completed and Pending Labs on day of discharge: Labs from last 24 hours 10/14/24 10/14/24 10/14/24 06:35 05:55 01:15 WBC 4.15 L RBC 2.61 L Hgb 7.2 L Hct 24.6 L MCV 94 MCH 27.6 MCHC 29.3 L RDW 20.0 H Plt Count 347 MPV 10.3 Immature Gran % 1.0 Neutrophils % 86.7 Lymphocytes % 11.1 Monocytes % 0.7 Eosinophils % 0.0 Basophils % 0.5 Nucleated RBC % 0.0 Absolute Neutrophils 3.60 Absolute Lymphocytes 0.46 L Absolute Monocytes 0.03 L Absolute Eosinophils 0.00 Absolute Basophils 0.02 RBC Morphology Hypochromasia Anisocytosis VBG pH VBG pCO2 VBG pO2 VBG HCO3 VBG Total CO2 VBG O2 Saturation VBG Base Excess VBG Lactate Sodium 142 Potassium 4.5 Chloride 109 H Carbon Dioxide 22.0 Anion Gap 11.0 BUN 26 H Creatinine 1.1 H Est GFR (CKD-EPI 2020) 58.97 Glucose 199 H Calcium 8.2 L Magnesium 1.9 Total Bilirubin 0.1 L AST 13 L ALT 17 Alkaline Phosphatase 61 Troponin I 9 Total Protein 6.7 Albumin 3.1 L Urine Opiates Screen Negative Urine Methadone Screen Negative Ur Barbiturates Screen Negative Ur Tricyclics Screen Positive A Ur Amphetamines Screen Negative U Benzodiazepines Scrn Negative Urine Cocaine Screen Negative Ur THC Screen Negative Ethyl Alcohol 11.1 H COVID-19 Source SARS-CoV-2 (PCR) Influenza Type A (PCR) Influenza Type B (PCR) RSV (PCR) 10/14/24 10/13/24 00:02 23:40 WBC 8.52 RBC 2.65 L Hgb 7.2 L Hct 24.7 L MCV 93 MCH 27.2 MCHC 29.1 L RDW 20.0 H Plt Count 372 MPV 9.9 Immature Gran % 0.5 Neutrophils % 57.0 Lymphocytes % 28.3 Monocytes % 7.7 Eosinophils % 5.9 Basophils % 0.6 Nucleated RBC % 0.0 Absolute Neutrophils 4.86 Absolute Lymphocytes 2.41 Absolute Monocytes 0.66 Absolute Eosinophils 0.50 Absolute Basophils 0.05 RBC Morphology See Below Hypochromasia 2+ Anisocytosis 1+ VBG pH 7.32 VBG pCO2 39 L VBG pO2 63 VBG HCO3 20 L VBG Total CO2 20 L VBG O2 Saturation 91 VBG Base Excess -6 L VBG Lactate 2.2 H* Sodium 139 Potassium 4.3 Chloride 105 Carbon Dioxide 22.9 Anion Gap 11.1 H BUN 27 H Creatinine 1.5 H Est GFR (CKD-EPI 2020) 40.65 Glucose 129 H Calcium 8.4 L Magnesium 2.1 Total Bilirubin 0.2 AST 43 H ALT 19 Alkaline Phosphatase 63 Troponin I 8 Total Protein 6.9 Albumin 3.2 L Urine Opiates Screen Urine Methadone Screen Ur Barbiturates Screen Ur Tricyclics Screen Ur Amphetamines Screen U Benzodiazepines Scrn Urine Cocaine Screen Ur THC Screen Ethyl Alcohol COVID-19 Source Nasopharynx SARS-CoV-2 (PCR) Positive A Influenza Type A (PCR) Negative Influenza Type B (PCR) Negative RSV (PCR) Negative PFSH All Active Problems (Updated 10/14/24 @ 04:55 by Freedom Mccauley MD) Alcohol dependence (Acute) Acute renal injury (Acute) COVID-19 virus infection (Acute) ASIA (acute kidney injury) (Acute) Hypotension (Acute) COVID (Acute) Alcohol intoxication (Acute) Alcohol use disorder in remission (Acute) Anemia (Chronic) Alcohol intoxication in active alcoholic (Acute) CKD (chronic kidney disease) (Chronic) Anemia (Chronic) Depression with anxiety (Chronic) Abdominal fluid collection (Acute) Dyslipidemia (Acute) Abdominal pain, chronic, left upper quadrant (Acute) Chronic upper gastrointestinal bleeding (Acute) Cyst and pseudocyst of pancreas (Acute) Anxiety (Chronic) DUB (dysfunctional uterine bleeding) (Acute) Impaired fasting blood sugar (Acute 08/01/05) Obesity, unspecified (Acute 05/31/11) Atypical squamous cells of undetermined significance (ASC-US) on cervical Pap smear (Acute 08/05/09) ASCUS 08/05/09; 05/31/2011 Spinal stenosis of lumbar region (Acute 01/11/10) LS spine surg; Dr Sebastian Walker Tobacco dependence (Acute 08/01/05) Medical History Pulmonary embolus Helicobacter pylori (H. pylori) Chronic pain (02/20/09) chronic tramadol rx, back pain, sciatica despite LS surg 2009. Depression (04/03/15) Sertaline in the past with good relief of sx but then developed intolerable adverse rxns (nausea, flushing) Started on venlafaxine 03/2015 PHQ9 score = 9, indicating mild depression 03/2015 Anemia COPD (chronic obstructive pulmonary disease) HTN (hypertension), benign Spinal stenosis Lumbar region Surgical History History of esophagogastroduodenoscopy (EGD) (~08/05/24) w bx. per report-negative for H.Pylori Internal injury, spleen, closed with IR embolization Back surgery L5-S1 decompression 2009 Family History Mother , lung cancer at age 50. No problems noted. Father , MVA No problems noted. Other Lung cancer Social History Smoking/Tobacco Use Status: Current every day Tobacco Type: cigarettes Smoking risk assessment performed?: Yes Alcohol Intake: current Alcohol Intake frequency: 3 or more drinks per day Alcohol type: beer and hard liquor Drug use: Never Substance use type: does not use Details: last drink about 3 weeks ago. 10/13/24 Housing: other Do you feel safe at home: Yes Do you feel safe in your relationship?: Yes Time Spent with Patient Time Spent with Patient: <45 minutes Time was spent: preparing to see the patient(eg.review tests), obtaining and/or reviewing separately otained hiistory, ordering medications,tests, procedures, referring, communicating with other health acute care registered nurse, indepentently interpreting results, counseling the patient and care coordination
--- NOTE | 2024-10-14 13:35 | CMDISCH_ITS ---
LACE Index Scoring Tool Questions: Length of Stay (in days): 1 Was the patient admitted via the E.D.?: Yes Comorbidities: Chronic Pulmonary Disease and Liver or Renal Disease E.D. Visits: 14 Answers: Total Score: 13 Risk of Readmission: High Risk Care Management Discharge SDOH Health Related Social Needs: Health related social needs material hardship house/ec on circumstance Health related social needs details some questions not being answered properly. Health related social needs details: some questions not being answered properly.
--- NOTE | 2024-10-15 07:32 | NUR.NOTE ---
Addendum entered by Jagruti Shearer 10/20/24 15:14: Access chart to review orders for EKG's. There is no duplicate order. Original Note: Access chart to reconcile EKG's in [facility] with what was documented in the provider note. Nursing Note:
== END 2024-10-14 13:51 | disposition home or self-care (01) | DRG 178 ==
LOC: ER 10-14 02:08 → MS 10-14 03:12
PROVIDERS: Admitting Provider Family Medicine; Emergency Provider Emergency Medicine; PCP Nurse Practitioner; Responsible Provider Family Medicine; Visit Provider Family Medicine
DX: U07.1 COVID-19 (principal); J44.0 Chronic obstructive pulmonary disease with (acute) lower respiratory infection; N17.9 Acute kidney failure, unspecified; Z59.819 Housing instability, housed unspecified; I95.9 Hypotension, unspecified; Z79.899 Other long term (current) drug therapy; D64.9 Anemia, unspecified; N18.9 Chronic kidney disease, unspecified; F41.8 Other specified anxiety disorders; E78.5 Hyperlipidemia, unspecified; Z86.711 Personal history of pulmonary embolism; F17.210 Nicotine dependence, cigarettes, uncomplicated; E66.9 Obesity, unspecified; R73.01 Impaired fasting glucose; M48.061 Spinal stenosis, lumbar region without neurogenic claudication; G89.29 Other chronic pain; F10.20 Alcohol dependence, uncomplicated; E86.0 Dehydration; F19.10 Other psychoactive substance abuse, uncomplicated; I12.9 Hypertensive chronic kidney disease with stage 1 through stage 4 chronic kidney disease, or unspecified chronic kidney disease; Z59.87 Material hardship due to limited financial resources, not elsewhere classified; Z68.32 Body mass index [BMI] 32.0-32.9, adult
CPT/HCPCS: 00123; 36415; 80053; 80307; 82805; 87637; 93005; 96360; 96361; 99291; J1650; 71045; 80320; 83605; 83735; 84484; 85025; 93010; 99235; J0248

== ENCOUNTER 2024-10-18 12:35 | Emergency (ER) | payer MEDICAID, SELFPAY ==
[2024-10-18] VITALS (9 sets, daily range): BP systolic 88–113; BP diastolic 34–82; PULSE 70–75; RESP 9–19; TEMP 36.7; O2SAT 92–95
--- NOTE | 2024-10-18 13:22 | ED.GENADUL_ITS ---
Discharge Plan Disposition Patient Disposition: Home Condition: Good Discharge Details Clinical Impression: Alcohol intoxication Primary Care Provider: Paula Barboza ED Provider: Coy Rosa Home Meds and New Rx's Prescriptions: No Action lisinopril 20 mg tablet 20 mg PO DAILY Qty: 90 3RF Spiriva Respimat 1.25 mcg/actuation mist 2 puff inhalation DAILY Qty: 4 12RF Patient Comments: states needs refill albuterol sulfate [Ventolin HFA] 90 mcg/actuation HFA aerosol inhaler See Rx Instructions .ROUTE .COMPLEX Qty: 18 12RF Dose Instruction: INHALE TWO PUFFS BY MOUTH EVERY 4 HOURS NEEDED Rx Instructions: INHALE TWO PUFFS BY MOUTH EVERY 4 HOURS NEEDED ferrous sulfate 325 mg (65 mg iron) tablet 325 mg PO DAILY Qty: 30 0RF folic acid 1 mg tablet 1 mg PO DAILY Qty: 30 0RF hydroxyzine HCl 25 mg tablet 25 mg PO TID PRN (Reason: anxiety) Qty: 180 1RF (DME) Hand Held Nebulizer See Rx Instructions .Route .MEDSUPPLY Qty: 1 0RF Rx Instructions: As directed (DME) POCKET CHAMBER Spacer See Rx Instructions .ROUTE .MEDSUPPLY Qty: 1 0RF Rx Instructions: As directed trazodone 50 mg tablet See Rx Instructions .ROUTE .COMPLEX Qty: 135 1RF Dose Instruction: TAKE 1 & 1/2 TABLETS BY MOUTH DAILY AT BEDTIME NEEDED FOR SLEEP Rx Instructions: TAKE 1 & 1/2 TABLETS BY MOUTH DAILY AT BEDTIME NEEDED FOR SLEEP quetiapine 100 mg tablet See Rx Instructions .ROUTE .COMPLEX Qty: 135 0RF Dose Instruction: TAKE ONE AND ONE-HALF TABLETS BY MOUTH AT BEDTIME DAILY Rx Instructions: TAKE ONE AND ONE-HALF TABLETS BY MOUTH AT BEDTIME DAILY pantoprazole [Protonix] 40 mg tablet,delayed release (DR/EC) 40 mg PO BID Qty: 60 0RF propranolol 20 mg tablet 20 mg PO BID Patient Comments: TAKE ONE TABLET BY MOUTH TWICE A DAY oxycodone 5 mg tablet 5 mg PO QID PRNQty: 10 0RF (DME) nebulizers Misc See Rx Instructions .ROUTE .MEDSUPPLY Qty: 1 0RF Rx Instructions: As directed thiamine HCl (vitamin B1) 100 mg tablet 100 mg PO DAILY Patient Comments: TAKE ONE TABLET BY MOUTH EVERY DAY multivitamin [Multiple Vitamins] Tablet 1 tab PO DAILY Qty: 0 0RF ipratropium-albuterol 0.5 mg-3 mg(2.5 mg base)/3 mL Solution For Nebulization 3 ml UPD Q6H PRN (Reason: Wheezing) Qty: 24 2RF naltrexone 50 mg Tablet 50 mg PO DAILY Qty: 30 2RF topiramate 50 mg Tablet 50 mg PO HS Qty: 30 0RF budesonide-formoterol [Symbicort] 160-4.5 mcg/actuation Hfa Aerosol Inhaler 2 puff inhalation BID Qty: 1 2RF Discharge Instructions Additional Instructions: At this time your vital signs are stable, you show no evidence of significant trauma. Your blood pressure has normalized. You will be transitioned to law enforcement to obtain sobriety. If you notice any worsening of your symptoms, or any new symptoms such as vomiting, diarrhea, fever, chills, shortness of breath, chest pain, numbness, weakness, or fainting , please return immediately to the emergency department for reevaluation. Please follow up with your primary care provider as soon as possible for reassessment and reevaluation. As always, it was a pleasure participating in your medical care today. Referrals: Paula Barboza NP [Primary Care Provider, Medicine] HPI General Date/Time Provider Initiated Documentation: 10/18/24 12:43 . HPI Narrative: This is a 54-year-old female with a past medical history of previous pulmonary embolism not anticoagulated, helical back to pylori, and GERD, depression, COPD, hypertension, spinal stenosis, who [facility] who presents today for alcohol intoxication. Patient was found at [facility] notably intoxicated. She was subsequently brought to the emergency department. Currently she is shouting profanities and vulgar statements at staff, she denies any complaints otherwise. She does admit that she drank alcohol but does not admit to how much. She denies any other complaints at this time Related Data Home Medications ?Medication ?Instructions ?Recorded ?Confirmed inhalational spacing device #1 ea 09/28/20 10/14/24 (POCKET CHAMBER spacer) nebulizers #1 ea 03/16/21 10/14/24 lisinopril 20 mg tablet 20 mg PO DAILY #90 tab-caps 11/27/23 10/14/24 tiotropium bromide 1.25 2 puff inhalation DAILY #4 g franky 11/27/23 10/14/24 mcg/actuation mist for inhalation (Spiriva Respimat) Hand Held Nebulizer #1 ea 06/21/24 10/14/24 albuterol sulfate 90 mcg/actuation See Rx Instructions .Route 06/21/24 10/14/24 aerosol inhaler (Ventolin HFA) .COMPLEX #18 grams ferrous sulfate 325 mg (65 mg 325 mg PO DAILY #30 tabs 06/21/24 10/14/24 iron) tablet folic acid 1 mg tablet 1 mg PO DAILY #30 tabs 06/2110/14/24 hydroxyzine HCl 25 mg tablet 25 mg PO TID PRN anxiety #180 tabs 06/21/24 10/14/24 trazodone 50 mg tablet See Rx Instructions .Route 0 07/01/24 10/14/24 .COMPLEX #135 tabs thiamine HCl (vitamin B1) 100 mg 100 mg PO DAILY 07/2410/14/24 tablet budesonide-formoterol HFA 160 2 puff inhalation BID #1 inh 07/27/24 10/14/24 mcg-4.5 mcg/actuation aerosol inhaler (Symbicort) ipratropium 0.5 mg-albuterol 3 mg 3 ml UPD Q6H PRN Whe ezing #24 pkgs 07/27/24 10/14/24 (2.5 mg base)/3 mL nebulization soln multivitamin (Multiple Vitamins 1 tab PO DAILY #0 tabs 07/27/24 10/14/24 tablet) naltrexone 50 mg tablet 50 mg PO DAILY #30 tabs 09/1310/14/24 topiramate 50 mg tablet 50 mg PO HS #30 tabs 5 10/14/24 pantoprazole 40 mg tablet,delayed 40 mg PO BID #60 tab s 08/06/24 10/14/24 release (Protonix) propranolol 20 mg tablet 20 mg PO BID 08/25/24 oxycodone 5 mg tablet 5 mg PO QID PRN #10 tabs 02/1310/14/24 quetiapine 100 mg tablet See Rx Instructions .Route 0 10/17/24 .COMPLEX #135 tabs Previous Rx's ?Medication ?Instructions ?Recorded inhalational spacing device #1 ea 09/28/20 (POCKET CHAMBER spacer) nebulizers #1 ea 03/16/21 lisinopril 20 mg tablet 20 mg PO DAILY #90 tab-caps 11/27/23 tiotropium bromide 1.25 2 puff inhalation DAILY #4 g franky 11/27/23 mcg/actuation mist for inhalation (Spiriva Respimat) Hand Held Nebulizer #1 ea 06/21/24 albuterol sulfate 90 mcg/actuation See Rx Instructions .Route 06/21/24 aerosol inhaler (Ventolin HFA) .COMPLEX #18 grams ferrous sulfate 325 mg (65 mg 325 mg PO DAILY #30 tabs 06/21/24 iron) tablet folic acid 1 mg tablet 1 mg PO DAILY #30 tabs 06/21 hydroxyzine HCl 25 mg tablet 25 mg PO TID PRN anxiety #180 tabs 06/21/24 trazodone 50 mg tablet See Rx Instructions .Route 0 07/01/24 .COMPLEX #135 tabs budesonide-formoterol HFA 160 2 puff inhalation BID #1 inh 07/27/24 mcg-4.5 mcg/actuation aerosol inhaler (Symbicort) ipratropium 0.5 mg-albuterol 3 mg 3 ml UPD Q6H PRN Whe ezing #24 pkgs 07/27/24 (2.5 mg base)/3 mL nebulization soln multivitamin (Multiple Vitamins 1 tab PO DAILY #0 tabs 07/27/24 tablet) naltrexone 50 mg tablet 50 mg PO DAILY #30 tabs 09/13 topiramate 50 mg tablet 50 mg PO HS #30 tabs 5 pantoprazole 40 mg tablet,delayed 40 mg PO BID #60 tab s 08/06/24 release (Protonix) oxycodone 5 mg tablet 5 mg PO QID PRN #10 tabs 02/13 quetiapine 100 mg tablet See Rx Instructions .Route 0 10/17/24 .COMPLEX #135 tabs Allergies Allergy/AdvReac Type Severity Reaction Status Date / Time hydromorphone (From Dilaudid) Allergy Severe Itching Verified 09/03/24 13:24 oxycodone AdvReac Unknown TERRIBLE Verified 09/03/24 13:24 DREAMS General Stated Complaint: GenMedical ALISTAIR: 3 Exam Narrative Exam Narrative: 1.Const: Well-nourished, Well-developed, appearing stated age 2.Eyes: PERRL, no conjunctival injection, and symmetrical lids. 3.ENT: Atraumatic external nose and ears. Moist MM. Neck: Symmetric, trachea midline, No thyromegaly. There is no evidence of raccoon eyes, anderson sign, CSF rhinorrhea, mastoid tenderness, cranial crepitus, hemotympanum, exophthalmos, or hyphema. Patient demonstrates intact dentition with no signs of tooth avulsion or fracture, no signs of jaw deformity, no evidence of a LeFort's fracture, with an intact palate, nose and orbital region. There is no evidence of a nasal septal hematoma. No proptosis. Jaw closes symmetrically. Airway is clear. 4.CVS: +S1/S2, Peripheral pulses 2+ and equal in all extremities. Brisk capillary refill in all extremities. 5.RESP: Unlabored respiratory effort. Clear to auscultation bilaterally. No wheezes rales or rhonchi 6.GI: Soft, Nontender/Nondistended, No hepatosplenomegaly. No guarding or re bound. 7.MSK: Normocephalic/Atraumatic, Extremities w/o deformity or ttp No cyanosis or clubbing, Normal movement of all extremities 8.Skin: Warm, Dry. No rashes or lesions. 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 Sensation grossly intact, no focal neurologic deficits. 10.Psych: (AAO) x3. Appropriate mood and affect but notably intoxicated Course Vital Signs Vital signs: Vital Signs Temperature 36.7 C 10/18/24 12:41 Pulse 71 10/18/24 12:41 Respiratory Rate 13 10/18/24 12:41 Blood Pressure 88/34 L 10/18/24 12:41 Pulse Oximetry 95 10/18/24 12:41 Temperature 36.7 C 10/18/24 12:41 Temperature Source Oral 10/18/24 12:41 Pulse 71 10/18/24 12:41 Respiratory Rate 13 10/18/24 12:41 Blood Pressure 88/34 L 10/18/24 12:41 Blood Pressure Position Supine 10/18/24 12:41 Pulse Oximetry 95 10/18/24 12:41 Oxygen Delivery Method Room Air 10/18/24 12:41 Oxygen Flow Rate 0 10/18/24 12:41 Medical Decision Making This is a 54-year-old female with a past medical history of previous pulmonary embolism not anticoagulated, helical back to pylori, and GERD, depression, COPD, hypertension, spinal stenosis, who [facility] who presents today for alcohol intoxication. Patient was found at [facility] notably intoxicated. She was subsequently brought to the emergency department. Currently she is shouting profanities and vulgar statements at staff, she denies any complaints otherwise. She does admit that she drank alcohol but does not admit to how much. She denies any other complaints at this time Patient was seen and assessed, no evidence of trauma to her head neck chest abdomen or pelvis, initial vital sign was 88 systolic, however this was with close on. A bear armed blood pressure was subsequently taken and demonstrated a systolic in the 1 teens. Heart rate remained normal. Patient refused labs, got quite confrontational with nursing staff when they tried to place an IV. Patient otherwise demonstrates no signs of significant medical instability at this time. No evidence of trauma to suggest acute intercranial hemorrhage. No evidence of tachycardia or fever. Patient makes it unequivocally clear that she does not want to be in the emergency department at this time and would like to leave. Because of her intoxicated status she is not safe to go home on her own. She shows no signs of significant medical instability at this time, and has been medically cleared aside for the evidence of her acute notable intoxication. We did call [facility] and they have graciously agreed to take the patient to the intoxication holding area until she reaches sobriety. Patient will be discharged. I have extensively reviewed the treatment plan and discharge instructions with the patient. I have addressed all patient concerns at this time. The patient was made aware of what symptoms to monitor for that would warrant a return to the emergency department. Discussed the plan with the patient, they demonstrate verbal understanding and agreement with our assessment and plan at this time. The documentation in this chart was dictated using [employer] dictation software. Please excuse any dictation errors. Quality:SDOH Health Related Social Needs: Health related social needs material hardship house/ on circumstance Health related social needs details some questions not being answered properly. PFSH All Active Problems (Updated 10/18/24 @ 13:23 by Coy Rosa DO) Alcohol intoxication (Acute) Alcohol dependence (Acute) COVID-19 virus infection (Acute) COVID (Acute) Alcohol intoxication (Acute) Alcohol use disorder in remission (Acute) Anemia (Chronic) Alcohol intoxication in active alcoholic (Acute) CKD (chronic kidney disease) (Chronic) Anemia (Chronic) Depression with anxiety (Chronic) Abdominal fluid collection (Acute) Dyslipidemia (Acute) Abdominal pain, chronic, left upper quadrant (Acute) Chronic upper gastrointestinal bleeding (Acute) Cyst and pseudocyst of pancreas (Acute) Anxiety (Chronic) DUB (dysfunctional uterine bleeding) (Acute) Impaired fasting blood sugar (Acute 08/01/05) Obesity, unspecified (Acute 05/31/11) Atypical squamous cells of undetermined significance (ASC-US) on cervical Pap smear (Acute 08/05/09) ASCUS 08/05/09; 05/31/2011 Spinal stenosis of lumbar region (Acute 01/11/10) LS spine surg; Dr Sebastian Walker Tobacco dependence (Acute 08/01/05) Medical History Pulmonary embolus Helicobacter pylori (H. pylori) Chronic pain (02/20/09) chronic tramadol rx, back pain, sciatica despite LS surg 2009. Depression (04/03/15) Sertaline in the past with good relief of sx but then developed intolerable adverse rxns (nausea, flushing) Started on venlafaxine 03/2015 PHQ9 score = 9, indicating mild depression 03/2015 Anemia COPD (chronic obstructive pulmonary disease) HTN (hypertension), benign Spinal stenosis Lumbar region Surgical History History of esophagogastroduodenoscopy (EGD) (~08/05/24) w bx. per report-negative for H.Pylori Internal injury, spleen, closed with IR embolization Back surgery L5-S1 decompression 2009 Family History Mother , lung cancer at age 50. No problems noted. Father , MVA No problems noted. Other Lung cancer Social History Smoking/Tobacco Use Status: Current every day Tobacco Type: cigarettes Smoking risk assessment performed?: Yes Alcohol Intake: current Alcohol Intake frequency: 3 or more drinks per day Alcohol type: beer and hard liquor Drug use: Never Substance use type: does not use Details: last drink about 3 weeks ago. 10/13/24 Housing: other Do you feel safe at home: Yes Do you feel safe in your relationship?: Yes
== END 2024-10-18 16:04 | disposition home or self-care (01) ==
PROVIDERS: Emergency Provider Student in an Organized Health Care Education/Training Program; PCP Nurse Practitioner
DX: F10.920 Alcohol use, unspecified with intoxication, uncomplicated (principal); F32.A Depression, unspecified; I10 Essential (primary) hypertension; Z59.87 Material hardship due to limited financial resources, not elsewhere classified
CPT/HCPCS: 99285; 99283; 80053; 80320; 85025

== ENCOUNTER 2024-10-18 20:35 | Emergency (ER) | payer MEDICAID, SELFPAY ==
[2024-10-18 21:53] LABS: INR 1.1 (0.9-1.1); Prothrombin Time 11.2 sec (9.1-11.1)
[2024-10-18 21:57] LABS: Abs Immature Grans 0.08 10^3/uL (0.0-0.06); HCT 26.1 % (36.0-46.0); HGB 7.9 g/dL (11.2-15.7); MCH 27.3 pg (27.0-33.0); MCHC 30.3 % (32.0-36.0); MPV 9.9 fL (8.0-11.0); Platelet Count 424 10^3/uL (130-400); RBC 2.89 10^6/uL (3.93-5.22); RDW 19.2 % (11.7-14.6); RDW-SD 64.0 fL; WBC 5.41 10^3/uL (4.4-10.8)
[2024-10-18 21:58] LABS: ALT 16 U/L (14-59); AST 12 U/L (15-37); Albumin 3.2 g/dL (3.4-5.0); Alkaline Phosphatase 60 U/L (46-116); Anion Gap 9.5 mmol/L (3-11); BUN 21 mg/dL (7-18); Bilirubin, Direct 0.1 mg/dL (0.0-0.2); Bilirubin, Total 0.2 mg/dL (0.2-1.0); CO2 25.5 mmol/L (21.0-32.0); Calcium 8.4 mg/dL (8.5-10.1); Chloride 108 mmol/L (98-107); Estimated GFR 75.03 (mL/min/1.73m2); Glucose 90 mg/dL (74-106); Lipase 39 U/L (<78); Magnesium 2.0 mg/dL (1.8-2.4); Potassium 4.5 mmol/L (3.5-5.1); Sodium 143 mmol/L (136-145); Total Protein 6.8 g/dL (6.4-8.2)
--- NOTE | 2024-10-18 22:03 | W.ED.GENAD ---
Discharge Plan Disposition Patient Disposition: Home Condition: Stable Discharge Details Clinical Impression: Alcohol intoxication Primary Care Provider: Paula Barboza ED Provider: Coy Milan Home Meds and New Rx's Prescriptions: Continued lisinopril 20 mg tablet 20 mg PO DAILY Qty: 90 3RF Spiriva Respimat 1.25 mcg/actuation mist 2 puff inhalation DAILY Qty: 4 12RF Patient Comments: states needs refill albuterol sulfate [Ventolin HFA] 90 mcg/actuation HFA aerosol inhaler See Rx Instructions .ROUTE .COMPLEX Qty: 18 12RF Dose Instruction: INHALE TWO PUFFS BY MOUTH EVERY 4 HOURS NEEDED Rx Instructions: INHALE TWO PUFFS BY MOUTH EVERY 4 HOURS NEEDED ferrous sulfate 325 mg (65 mg iron) tablet 325 mg PO DAILY Qty: 30 0RF folic acid 1 mg tablet 1 mg PO DAILY Qty: 30 0RF hydroxyzine HCl 25 mg tablet 25 mg PO TID PRN (Reason: anxiety) Qty: 180 1RF (DME) Hand Held Nebulizer See Rx Instructions .Route .MEDSUPPLY Qty: 1 0RF Rx Instructions: As directed (DME) POCKET CHAMBER Spacer See Rx Instructions .ROUTE .MEDSUPPLY Qty: 1 0RF Rx Instructions: As directed trazodone 50 mg tablet See Rx Instructions .ROUTE .COMPLEX Qty: 135 1RF Dose Instruction: TAKE 1 & 1/2 TABLETS BY MOUTH DAILY AT BEDTIME NEEDED FOR SLEEP Rx Instructions: TAKE 1 & 1/2 TABLETS BY MOUTH DAILY AT BEDTIME NEEDED FOR SLEEP quetiapine 100 mg tablet See Rx Instructions .ROUTE .COMPLEX Qty: 135 0RF Dose Instruction: TAKE ONE AND ONE-HALF TABLETS BY MOUTH AT BEDTIME DAILY Rx Instructions: TAKE ONE AND ONE-HALF TABLETS BY MOUTH AT BEDTIME DAILY pantoprazole [Protonix] 40 mg tablet,delayed release (DR/EC) 40 mg PO BID Qty: 60 0RF propranolol 20 mg tablet 20 mg PO BID Patient Comments: TAKE ONE TABLET BY MOUTH TWICE A DAY oxycodone 5 mg tablet 5 mg PO QID PRNQty: 10 0RF (DME) nebulizers Misc See Rx Instructions .ROUTE .MEDSUPPLY Qty: 1 0RF Rx Instructions: As directed thiamine HCl (vitamin B1) 100 mg tablet 100 mg PO DAILY Patient Comments: TAKE ONE TABLET BY MOUTH EVERY DAY multivitamin [Multiple Vitamins] Tablet 1 tab PO DAILY Qty: 0 0RF ipratropium-albuterol 0.5 mg-3 mg(2.5 mg base)/3 mL Solution For Nebulization 3 ml UPD Q6H PRN (Reason: Wheezing) Qty: 24 2RF naltrexone 50 mg Tablet 50 mg PO DAILY Qty: 30 2RF topiramate 50 mg Tablet 50 mg PO HS Qty: 30 0RF budesonide-formoterol [Symbicort] 160-4.5 mcg/actuation Hfa Aerosol Inhaler 2 puff inhalation BID Qty: 1 2RF Discharge Instructions Instructions: Alcohol Intoxication ED Additional Instructions: You were seen in the emergency department for your alcohol intoxication, your labs are all relatively stable and where they have been in the past. You state your left-sided pain is no different than it has been. You had some mildly low blood pressures but not what I would call hypotension, you are 95/60, per the police officers, you improved with fluids that were given by EMS, please stop alcohol use, follow-up with Dr. Lemus of general surgery for your splenic procedure if desired, return for any emergent concern. Referrals: Paula Barboza NP [Primary Care Provider, Medicine] Discharge Data Discharge Date/Time-TO BE ENTERED AT DEPARTURE: 10/19/24 08:06 HPI General Date/Time Provider Initiated Documentation: 10/18/24 20:41. HPI Narrative: 54 year-old female presents to ED today by POV, sent from the drunk tank with a chief complaint of LUQ abdominal pain that is her baseline- states no different than normal with onset 12 hours ago. Quality described as mild L sided abdominal pain around oblique area, no radiation to nausea/vomiting, fever, constipation, shortness of breath, chest pain, delerium tremens. Severity is described as mild to moderate. Palliating factors include nothing specific. Provoking factors include patient states she has problems with her spleen and has discussed taking it out with Dr. Lemus in the past. Patient not anticoagulated. Related Data Home Medications ?Medication ?Instructions ?Recorded ?Confirmed inhalational spacing device #1 ea 09/28/20 10/14/24 (POCKET CHAMBER spacer) nebulizers #1 ea 03/16/21 10/14/24 lisinopril 20 mg tablet 20 mg PO DAILY #90 tab-caps 11/27/23 10/14/24 tiotropium bromide 1.25 2 puff inhalation DAILY #4 grams 11/27/23 10/14/24 mcg/actuation mist for inhalation (Spiriva Respimat) Hand Held Nebulizer #1 ea 06/21/24 10/14/24 albuterol sulfate 90 mcg/actuation See Rx Instructions .Route 06/21/24 10/14/24 aerosol inhaler (Ventolin HFA) .COMPLEX #18 grams ferrous sulfate 325 mg (65 mg 325 mg PO DAILY #30 tabs 06/21/24 10/14/24 iron) tablet folic acid 1 mg tablet 1 mg PO DAILY #30 tabs 06/21/24 10/14/24 hydroxyzine HCl 25 mg tablet 25 mg PO TID PRN anxiety #180 tabs 06/21/24 10/14/24 trazodone 50 mg tablet See Rx Instructions .Route 07/01/24 10/14/24 .COMPLEX #135 tabs thiamine HCl (vitamin B1) 100 mg 100 mg PO DAILY 07/24/24 10/14/24 tablet budesonide-formoterol HFA 160 2 puff inhalation BID #1 inh 07/27/24 10/14/24 mcg-4.5 mcg/actuation aerosol inhaler (Symbicort) ipratropium 0.5 mg-albuterol 3 mg 3 ml UPD Q6H PRN Wheezing #24 pkgs 07/27/24 10/14/24 (2.5 mg base)/3 mL nebulization soln multivitamin (Multiple Vitamins 1 tab PO DAILY #0 tabs 07/27/24 10/14/24 tablet) naltrexone 50 mg tablet 50 mg PO DAILY #30 tabs 07/27/24 10/14/24 topiramate 50 mg tablet 50 mg PO HS #30 tabs 07/27/24 10/14/24 pantoprazole 40 mg tablet,delayed 40 mg PO BID #60 tabs 08/06/24 10/14/24 release (Protonix) propranolol 20 mg tablet 20 mg PO BID 08/25/24 10/14/24 oxycodone 5 mg tablet 5 mg PO QID PRN #10 tabs 08/31/24 10/14/24 quetiapine 100 mg tablet See Rx Instructions .Route 10/17/24 .COMPLEX #135 tabs Previous Rx's ?Medication ?Instructions ?Recorded inhalational spacing device #1 ea 09/28/20 (POCKET CHAMBER spacer) nebulizers #1 ea 03/16/21 lisinopril 20 mg tablet 20 mg PO DAILY #90 tab-caps 11/27/23 tiotropium bromide 1.25 2 puff inhalation DAILY #4 grams 11/27/23 mcg/actuation mist for inhalation (Spiriva Respimat) Hand Held Nebulizer #1 ea 06/21/24 albuterol sulfate 90 mcg/actuation See Rx Instructions .Route 06/21/24 aerosol inhaler (Ventolin HFA) .COMPLEX #18 grams ferrous sulfate 325 mg (65 mg 325 mg PO DAILY #30 tabs 06/21/24 iron) tablet folic acid 1 mg tablet 1 mg PO DAILY #30 tabs 06/21/24 hydroxyzine HCl 25 mg tablet 25 mg PO TID PRN anxiety #180 tabs 06/21/24 trazodone 50 mg tablet See Rx Instructions .Route 07/01/24 .COMPLEX #135 tabs budesonide-formoterol HFA 160 2 puff inhalation BID #1 inh 07/27/24 mcg-4.5 mcg/actuation aerosol inhaler (Symbicort) ipratropium 0.5 mg-albuterol 3 mg 3 ml UPD Q6H PRN Wheezing #24 pkgs 07/27/24 (2.5 mg base)/3 mL nebulization soln multivitamin (Multiple Vitamins 1 tab PO DAILY #0 tabs 07/27/24 tablet) naltrexone 50 mg tablet 50 mg PO DAILY #30 tabs 07/27/24 topiramate 50 mg tablet 50 mg PO HS #30 tabs 07/27/24 pantoprazole 40 mg tablet,delayed 40 mg PO BID #60 tabs 08/06/24 release (Protonix) oxycodone 5 mg tablet 5 mg PO QID PRN #10 tabs 08/31/24 quetiapine 100 mg tablet See Rx Instructions .Route 10/17/24 .COMPLEX #135 tabs Allergies Allergy/AdvReac Type Severity Reaction Status Date / Time hydromorphone (From Dilaudid) Allergy Severe Itching Verified 09/03/24 13:24 oxycodone AdvReac Unknown TERRIBLE Verified 09/03/24 13:24 DREAMS General Stated Complaint: Abd Prob ALISTAIR: 3 Review of Systems All systems reviewed & are unremarkable except as noted in HPI and below Exam Narrative Exam Narrative: GENERAL APPEARANCE: Well-nourished, non-toxic, awake and alert, atraumatic, no acute distress. SKIN: Warm, pink, dry, intact, without rashes/lesions/ulcerations. HEAD: Normocephalic, atraumatic, normal hair distribution for gender/age. EYES: Normal conjunctiva, no exudates on lids/lashes. ENT: Nares patent, no circumoral cyanosis, no facial swelling NECK: Supple, trachea midline, painless cervical ROM. LUNGS/CHEST: Lungs CTA bilaterally, non-labored respirations, normal A/P diameter, symmetrical expansion, no chest wall deformity HEART (CV/PV): Regular rate and rhythm without murmur, no peripheral edema, no JVD. ABDOMEN: Soft, non-distended, no guarding, LUQ tenderness without peritoneal signs, no rigidity/ecchymosis. MSK: Normal ROM, no swelling/deformity to bilateral UEs or LEs, moving all extremities without weakness, no cyanosis, spine midline without tenderness, normal curvature. NEURO: Mental Status AAOx4 - alert to person, place, time, events No facial droop, no forehead involvement. Motor: No focal weakness - strength 5/5 in bilateral UEs and LEs, proximal and distal, symmetric. Sensory: sensation intact to light touch globally. Gait normal: patient ambulated without ataxia into ED room. PSYCH: euthymic, cooperative, pleasant, appropriate speech Course Vital Signs Vital signs: Temperature Source Tympanic 10/18/24 20:49 Blood Pressure Position Supine 10/18/24 20:49 Oxygen Delivery Method Room Air 10/18/24 20:49 Oxygen Flow Rate 0 10/18/24 20:49 End Tidal Co2 7 10/18/24 20:49 Lab/Test Results Lab/Test Results: Laboratory Tests Range/Units 10/18/24 21:31 PT (9.1-11.1) sec 11.2 H INR (0.9-1.1) 1.1 Sodium (136-145) mmol/L 143 Potassium (3.5-5.1) mmol/L 4.5 Chloride (98-107) mmol/L 108 H Carbon Dioxide (21.0-32.0) mmol/L 25.5 Anion Gap (3-11) mmol/L 9.5 BUN (7-18) mg/dL 21 H Creatinine (0.55-1.02) mg/dL 0.9 Est GFR (CKD-EPI 2020) (mL/min/1.73m2) 75.03 Glucose (74-106) mg/dL 90 Calcium (8.5-10.1) mg/dL 8.4 L Magnesium (1.8-2.4) mg/dL 2.0 Total Bilirubin (0.2-1.0) mg/dL 0.2 Conjugated Bilirubin (0.0-0.2) mg/dL 0.1 AST (15-37) U/L 12 L ALT (14-59) U/L 16 Alkaline Phosphatase (46-116) U/L 60 Total Protein (6.4-8.2) g/dL 6.8 Albumin (3.4-5.0) g/dL 3.2 L Lipase (<78) U/L 39 Ethyl Alcohol (<10) mg/dL 161.8 H Medical Decision Making This dictation utilizes [id number] dictation software and may contain unedited grammatical errors. 54 year-old female presents to ED today by POV, sent [place] the drunk tank with a chief complaint of LUQ abdominal pain that is her baseline- states no different than normal with onset 12 hours ago. Quality described as mild L sided abdominal pain around oblique area, no radiation to nausea/vomiting, fever, constipation, shortness of breath, chest pain, delerium tremens. Severity is described as mild to moderate. Palliating factors include nothing specific. Provoking factors include patient states she has problems with her spleen and has discussed taking it out with Dr. Lemus in the past. 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 Family and social history: Endorses regular alcohol use, states she only takes her prescribed pain medications does not use street drugs. Pertinent exam findings / vital signs include left upper quadrant abdominal tenderness around the oblique area, no peritoneal signs, no CVA tenderness percussion bilaterally, benign cardiopulmonary exam. Differential / pathologies of concern include alcohol intoxication, chronic abdominal pain, denies trauma. Diagnostic studies of: - CBC, CMP, PT/INR, magnesium, liver panel, lipase, UA-discussed possible imaging with lab abnormalities beyond baseline. - CBC shows no actionable abnormality, chronic baseline anemia - CMP shows no actionable abnormality with mildly low calcium - LFTs within normal limits - Lipase negative - UA shows 10-20 WBCs will await culture - Alcohol level 161, patient is clinically sober likely at her baseline, sleeping comfortably and will discharge in an hour or 2 when she wakes up - PT/INR within normal limits Interventions of: - None. 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 She will discharge home without imaging as this was discussed with her and with no lab abnormalities from her baseline, counseled her to follow-up with Dr. Lemus about her known spleen issue. Findings not consistent with acute abdominal pathology, trauma, alcohol withdrawal. Disposition of alcohol intoxication. Patient verbalized understanding of the plan and return to ED criteria and engaged in shared decision making. Medical Records Medical records reviewed: Yes I reviewed the patient's medical records. Lab Data Lab results reviewed: Yes I reviewed the patient's lab results. Labs: 10/19/24 03:43 Urine - Reflex from Ua Urine Culture - Preliminary Gram positive lisa, mixed Laboratory Tests Range/Units 10/18/24 10/19/24 21:31 03:43 WBC (4.4-10.8) 10^3/uL 5.41 RBC (3.93-5.22) 10^6/uL 2.89 L Hgb (11.2-15.7) g/dL 7.9 L Hct (36.0-46.0) % 26.1 L MCV (80-95) fL 90 D MCH (27.0-33.0) pg 27.3 MCHC (32.0-36.0) % 30.3 L RDW (11.7-14.6) % 19.2 H Plt Count (130-400) 10^3/uL 424 H MPV (8.0-11.0) fL 9.9 Immature Gran % % 0.0 Neutrophils % % 40.0 Lymphocytes % % 45.0 Monocytes % % 8.0 Eosinophils % % 6.0 Basophils % % 0.0 Metamyelocytes % 1 Nucleated RBC % (0.0-0.3) % 0.0 Absolute Neutrophils (1.2-6.7) 10^3/uL 2.16 Absolute Lymphocytes (1.2-3.4) 10^3/uL 2.43 Absolute Monocytes (0.1-0.8) 10^3/uL 0.43 Absolute Eosinophils (0.0-0.7) 10^3/uL 0.32 Absolute Basophils (0.0-0.2) 10^3/uL 0.00 PT (9.1-11.1) sec 11.2 H INR (0.9-1.1) 1.1 Sodium (136-145) mmol/L 143 Potassium (3.5-5.1) mmol/L 4.5 Chloride (98-107) mmol/L 108 H Carbon Dioxide (21.0-32.0) mmol/L 25.5 Anion Gap (3-11) mmol/L 9.5 BUN (7-18) mg/dL 21 H Creatinine (0.55-1.02) mg/dL 0.9 Est GFR (CKD-EPI 2020) (mL/min/1.73m2) 75.03 Glucose (74-106) mg/dL 90 Calcium (8.5-10.1) mg/dL 8.4 L Magnesium (1.8-2.4) mg/dL 2.0 Total Bilirubin (0.2-1.0) mg/dL 0.2 Conjugated Bilirubin (0.0-0.2) mg/dL 0.1 AST (15-37) U/L 12 L ALT (14-59) U/L 16 Alkaline Phosphatase (46-116) U/L 60 Total Protein (6.4-8.2) g/dL 6.8 Albumin (3.4-5.0) g/dL 3.2 L Lipase (<78) U/L 39 Urine Color (Yellow) Yellow Urine Clarity (Clear) Clear Urine pH (5-8) 5.5 Ur Specific [place] (1.005-1.025) 1.025 Urine Protein (Neg-Trace) mg/dL Negative Urine Ketones (Negative) mg/dL Negative Urine Blood (Negative) Negative Urine Nitrite (Negative) Negative Urine Bilirubin (Negative) Negative Urine Urobilinogen (Up to 0.2) mg/dL 0.2 Ur Leukocyte Esterase (Negative) Moderate H Urine RBC (0-2) HPF Negative Urine WBC (0-5) HPF 10-20 H Ur Epithelial Cells (Negative) HPF Few Urine Crystals (Negative) HPF Negative Urine Bacteria (Negative) HPF Rare Urine Casts (Negative) LPF Negative Urine Mucus (Negative) Negative Ur Culture Indicated? Yes Urine Glucose (Negative) mg/dL Negative Ethyl Alcohol (<10) mg/dL 161.8 H Quality:SDOH Health Related Social Needs: Health related social needs material hardship house/econ circumstance Health related social needs details some questions not being answered properly. PFSH All Active Problems (Updated 10/18/24 @ 22:19 by PIPPA Bates) Alcohol intoxication (Acute) Alcohol intoxication (Acute) Alcohol dependence (Acute) COVID-19 virus infection (Acute) COVID (Acute) Alcohol intoxication (Acute) Alcohol use disorder in remission (Acute) Anemia (Chronic) Alcohol intoxication in active alcoholic (Acute) CKD (chronic kidney disease) (Chronic) Anemia (Chronic) Depression with anxiety (Chronic) Abdominal fluid collection (Acute) Dyslipidemia (Acute) Abdominal pain, chronic, left upper quadrant (Acute) Chronic upper gastrointestinal bleeding (Acute) Cyst and pseudocyst of pancreas (Acute) Anxiety (Chronic) DUB (dysfunctional uterine bleeding) (Acute) Impaired fasting blood sugar (Acute 08/01/05) Obesity, unspecified (Acute 05/31/11) Atypical squamous cells of undetermined significance (ASC-US) on cervical Pap smear (Acute 08/05/09) ASCUS 08/05/09; 05/31/2011 Spinal stenosis of lumbar region (Acute 01/11/10) LS spine surg; Dr Sebastian Walker Tobacco dependence (Acute 08/01/05) Medical History Pulmonary embolus Helicobacter pylori (H. pylori) Chronic pain (02/20/09) chronic tramadol rx, back pain, sciatica despite LS surg 2009. Depression (04/03/15) Sertaline in the past with good relief of sx but then developed intolerable adverse rxns (nausea, flushing) Started on venlafaxine 03/2015 PHQ9 score = 9, indicating mild depression 03/2015 Anemia COPD (chronic obstructive pulmonary disease) HTN (hypertension), benign Spinal stenosis Lumbar region Surgical History History of esophagogastroduodenoscopy (EGD) (~08/05/24) w bx. per report-negative for H.Pylori Internal injury, spleen, closed with IR embolization Back surgery L5-S1 decompression 2009 Family History Mother , lung cancer at age 50. No problems noted. Father , MVA No problems noted. Other Lung cancer Social History Smoking/Tobacco Use Status: Current every day Tobacco Type: cigarettes Smoking risk assessment performed?: Yes Alcohol Intake: current Alcohol Intake frequency: 3 or more drinks per day Alcohol type: beer and hard liquor Drug use: Never Substance use type: does not use Details: last drink about 3 weeks ago. 10/13/24 Housing: other Do you feel safe at home: Yes Do you feel safe in your relationship?: Yes PAWSS Have you Been Recently Intoxicated or Drunk Within the Last 30 days?: Yes Have you Ever Experienced Previous Episodes of Alcohol Withdrawal?: No Have you ever Experienced Withdrawal Seizures?: No Have you ever Experienced Delirium Tremens(DT)s?: No Have you ever undergone Alcohol Rehabilitation Treatment (i.e, inpt ot outpatient treatment programs)?: No Have you ever Experienced Blackouts?: No Have you ever Combined Alcohol with other Downers within the last 90 days?: No Have you ever Combined Alcohol with any other Substance of Abuse during the last 90 days?: No Positive Blood Alcohol level on Presentation? [PCS.BAL]: Unable to Obtain Evidence of Increased Autonomic Activity (i.e. HR>120, tremor, sweating, agitation, nausea)?: No Result: 1
[2024-10-18 22:10] LABS: MCV 90 fL (80-95)
[2024-10-18 22:13] LABS: Immature Grans % 0.0 %
[2024-10-19 03:52] LABS: Glucose Negative (Negative)
[2024-10-19 03:58] LABS: C & S Indicated? Yes; RBC Negative HPF (0-2)
--- NOTE | 2024-10-21 08:20 | NUR.NOTE ---
Accessed Pt chart to check if any antibiotics. She was not. This was documented on the Specimen Report and given to the providers.
--- NOTE | 2024-10-21 16:30 | W.ED.FU ---
Date of service: 10/21/24 Time of Service: 16:30 Follow Up Plan: This patient's urine culture resulted on my shift. She had gram-positive lisa mixed at 10-50,000 colony forming units per mL. This is most likely a contaminant. Will continue to observe patient off of antibiotics.
== END 2024-10-19 08:06 | disposition home or self-care (01) ==
PROVIDERS: Emergency Provider Physician Assistant; PCP Nurse Practitioner
DX: R10.12 Left upper quadrant pain; F10.929 Alcohol use, unspecified with intoxication, unspecified; Z59.87 Material hardship due to limited financial resources, not elsewhere classified; Z59.9 Problem related to housing and economic circumstances, unspecified
CPT/HCPCS: 80048; 80076; 83690; 99283; 80320; 81003; 81015; 83735; 85025; 85610; 87086

== ENCOUNTER 2024-12-13 00:06 | Inpatient (IN) | payer MEDICAID, SELFPAY ==
--- NOTE | 2024-12-12 23:45 | RT.EKG_ITS ---
APPROVED REPORT Exam: Resting ECG Reason for Exam: chest pain Patient Location: E HR:62 bpm ECG Measurements Heart Rate 62 AXIS NC 160 P 46 QRSd 97 QRS 75 QT 437 T 60 QTc 443 Conclusion Sinus rhythm...normal P axis, V-rate 60- 99 Low voltage, precordial leads...precordial leads <1.0mV no ST segment or T wave abnormalities to suggest occlusive CA
[2024-12-12 23:58] VITALS: BP 98/64; PULSE 67; RESP 18; TEMP 36.3; O2SAT 96
[2024-12-13] VITALS (51 sets, daily range): BP systolic 103–164; BP diastolic 56–107; PULSE 62–86; RESP 13–18; TEMP 36.1–37.1; O2SAT 89–98
--- NOTE | 2024-12-13 00:05 | W.ED.GENAD ---
Discharge Plan Discharge Details Chief Complaint: Abd Prob Clinical Impression: Alcohol intoxication, Acute on chronic anemia, Acidosis, Altered mental status, Meningioma, Pancreatic pseudocyst, CKD (chronic kidney disease) Primary Care Provider: Paula Barboza ED Provider: Zara Macias Home Meds and New Rx's Prescriptions: No Action lisinopril 20 mg tablet 20 mg PO DAILY Qty: 90 3RF Spiriva Respimat 1.25 mcg/actuation mist 2 puff inhalation DAILY Qty: 4 12RF Patient Comments: states needs refill albuterol sulfate [Ventolin HFA] 90 mcg/actuation HFA aerosol inhaler See Rx Instructions .ROUTE .COMPLEX Qty: 18 12RF Dose Instruction: INHALE TWO PUFFS BY MOUTH EVERY 4 HOURS NEEDED Rx Instructions: INHALE TWO PUFFS BY MOUTH EVERY 4 HOURS NEEDED ferrous sulfate 325 mg (65 mg iron) tablet 325 mg PO DAILY Qty: 30 0RF folic acid 1 mg tablet 1 mg PO DAILY Qty: 30 0RF hydroxyzine HCl 25 mg tablet 25 mg PO TID PRN (Reason: anxiety) Qty: 180 1RF (DME) Hand Held Nebulizer See Rx Instructions .Route .MEDSUPPLY Qty: 1 0RF Rx Instructions: As directed lisinopril 20 mg tablet 20 mg PO DAILY Qty: 90 3RF naltrexone 50 mg tablet 50 mg PO DAILY Qty: 30 2RF pantoprazole [Protonix] 40 mg tablet,delayed release (DR/EC) 40 mg PO BID Qty: 60 0RF Spiriva Respimat 1.25 mcg/actuation mist 2 puff inhalation DAILY Qty: 4 12RF Patient Comments: states needs refill topiramate 50 mg tablet 50 mg PO HS Qty: 30 0RF trazodone 50 mg tablet See Rx Instructions .ROUTE .COMPLEX Qty: 135 1RF Dose Instruction: TAKE 1 & 1/2 TABLETS BY MOUTH DAILY AT BEDTIME NEEDED FOR SLEEP Rx Instructions: TAKE 1 & 1/2 TABLETS BY MOUTH DAILY AT BEDTIME NEEDED FOR SLEEP doxepin 25 mg capsule 25 mg PO BID Qty: 180 3RF propranolol 20 mg tablet 20 mg PO BID Qty: 180 3RF doxycycline hyclate 100 mg capsule 100 mg PO DAILY Qty: 180 3RF gabapentin 300 mg capsule 300 mg PO BID Qty: 180 3RF chlorhexidine gluconate 0.12 % mouthwash 15 ml mucous membrane BID Qty: 900 11RF (DME) POCKET CHAMBER Spacer See Rx Instructions .ROUTE .MEDSUPPLY Qty: 1 0RF Rx Instructions: As directed trazodone 50 mg tablet See Rx Instructions .ROUTE .COMPLEX Qty: 135 1RF Dose Instruction: TAKE 1 & 1/2 TABLETS BY MOUTH DAILY AT BEDTIME NEEDED FOR SLEEP Rx Instructions: TAKE 1 & 1/2 TABLETS BY MOUTH DAILY AT BEDTIME NEEDED FOR SLEEP quetiapine 100 mg tablet See Rx Instructions .ROUTE .COMPLEX Qty: 135 0RF Dose Instruction: TAKE ONE AND ONE-HALF TABLETS BY MOUTH AT BEDTIME DAILY Rx Instructions: TAKE ONE AND ONE-HALF TABLETS BY MOUTH AT BEDTIME DAILY pantoprazole [Protonix] 40 mg tablet,delayed release (DR/EC) 40 mg PO BID Qty: 60 0RF (DME) nebulizers Misc See Rx Instructions .ROUTE .MEDSUPPLY Qty: 1 0RF Rx Instructions: As directed thiamine HCl (vitamin B1) 100 mg tablet 100 mg PO DAILY Patient Comments: TAKE ONE TABLET BY MOUTH EVERY DAY multivitamin [Multiple Vitamins] Tablet 1 tab PO DAILY Qty: 0 0RF ipratropium-albuterol 0.5 mg-3 mg(2.5 mg base)/3 mL Solution For Nebulization 3 ml UPD Q6H PRN (Reason: Wheezing) Qty: 24 2RF naltrexone 50 mg Tablet 50 mg PO DAILY Qty: 30 2RF topiramate 50 mg Tablet 50 mg PO HS Qty: 30 0RF budesonide-formoterol [Symbicort] 160-4.5 mcg/actuation Hfa Aerosol Inhaler 2 puff inhalation BID Qty: 1 2RF HPI General Mode of arrival: EMS. Date/Time Provider Initiated Documentation: 12/13/24 00:21. Limitations to Documentation: no limitations. Information obtained by: patient and old records reviewed. HPI Narrative: 44yo F with hx ETOH abuse, CKD, anemia, chronic LUQ abd pain with pancreatic pseudocyst, presenting via EMS for ETOH intoxication and hypotension. Was taken in by PD for intoxication; BP noted to be 90's/50's, and so sent to the ED for evaluation. Patient reports drinking 3 shots tonight, denies other ingestions. Has felt lightehaded when she stands up since drinking tonight, did not earlier. No N/V/D, dark or blood stool, or hemetemesis. On ROS reports LUQ abdominal pain which is chronic and unchanged. Otherwise in her usual state of health with no fevers, chills, rash, dysuria, hematuria, chest pain, shortness of breath, numbness, tingling, weakness, or other concerns. Related Data Home Medications Medication Instructions Recorded Confirmed inhalational spacing device #1 ea 09/28/20 10/30/24 (POCKET CHAMBER spacer) nebulizers #1 ea 03/16/21 10/30/24 lisinopril 20 mg tablet 20 mg PO DAILY #90 tab-caps 11/27/23 10/14/24 tiotropium bromide 1.25 2 puff inhalation DAILY #4 grams 11/27/23 10/14/24 mcg/actuation mist for inhalation (Spiriva Respimat) Hand Held Nebulizer #1 ea 06/21/24 10/30/24 albuterol sulfate 90 mcg/actuation See Rx Instructions .Route 06/21/24 10/30/24 aerosol inhaler (Ventolin HFA) .COMPLEX #18 grams ferrous sulfate 325 mg (65 mg 325 mg PO DAILY #30 tabs 06/21/24 10/30/24 iron) tablet folic acid 1 mg tablet 1 mg PO DAILY #30 tabs 06/21/24 10/30/24 hydroxyzine HCl 25 mg tablet 25 mg PO TID PRN anxiety #180 tabs 06/21/24 10/30/24 trazodone 50 mg tablet See Rx Instructions .Route 07/01/24 10/14/24 .COMPLEX #135 tabs thiamine HCl (vitamin B1) 100 mg 100 mg PO DAILY 07/24/24 10/30/24 tablet budesonide-formoterol HFA 160 2 puff inhalation BID #1 inh 07/27/24 10/30/24 mcg-4.5 mcg/actuation aerosol inhaler (Symbicort) ipratropium 0.5 mg-albuterol 3 mg 3 ml UPD Q6H PRN Wheezing #24 pkgs 07/27/24 10/30/24 (2.5 mg base)/3 mL nebulization soln multivitamin (Multiple Vitamins 1 tab PO DAILY #0 tabs 07/27/24 10/30/24 tablet) naltrexone 50 mg tablet 50 mg PO DAILY #30 tabs 07/27/24 10/14/24 topiramate 50 mg tablet 50 mg PO HS #30 tabs 07/27/24 10/14/24 pantoprazole 40 mg tablet,delayed 40 mg PO BID #60 tabs 08/06/24 10/14/24 release (Protonix) quetiapine 100 mg tablet See Rx Instructions .Route 10/17/24 10/30/24 .COMPLEX #135 tabs chlorhexidine gluconate 0.12 % 15 ml mucous membrane BID #900 mL 10/30/24 10/30/24 mouthwash doxepin 25 mg capsule 25 mg PO BID #180 caps 10/30/24 10/30/24 doxycycline hyclate 100 mg capsule 100 mg PO DAILY #180 caps 10/30/24 10/30/24 gabapentin 300 mg capsule 300 mg PO BID #180 caps 10/30/24 10/30/24 lisinopril 20 mg tablet 20 mg PO DAILY #90 tab-caps 10/30/24 10/30/24 naltrexone 50 mg tablet 50 mg PO DAILY #30 tabs 10/30/24 10/30/24 pantoprazole 40 mg tablet,delayed 40 mg PO BID #60 tabs 10/30/24 10/30/24 release (Protonix) propranolol 20 mg tablet 20 mg PO BID #180 tabs 10/30/24 10/30/24 tiotropium bromide 1.25 2 puff inhalation DAILY #4 grams 10/30/24 10/30/24 mcg/actuation mist for inhalation (Spiriva Respimat) topiramate 50 mg tablet 50 mg PO HS #30 tabs 10/30/24 10/30/24 trazodone 50 mg tablet See Rx Instructions .Route 10/30/24 10/30/24 .COMPLEX #135 tabs Previous Rx's Medication Instructions Recorded inhalational spacing device #1 ea 09/28/20 (POCKET CHAMBER spacer) nebulizers #1 ea 03/16/21 lisinopril 20 mg tablet 20 mg PO DAILY #90 tab-caps 11/27/23 tiotropium bromide 1.25 2 puff inhalation DAILY #4 grams 11/27/23 mcg/actuation mist for inhalation (Spiriva Respimat) Hand Held Nebulizer #1 ea 06/21/24 albuterol sulfate 90 mcg/actuation See Rx Instructions .Route 06/21/24 aerosol inhaler (Ventolin HFA) .COMPLEX #18 grams ferrous sulfate 325 mg (65 mg 325 mg PO DAILY #30 tabs 06/21/24 iron) tablet folic acid 1 mg tablet 1 mg PO DAILY #30 tabs 06/21/24 hydroxyzine HCl 25 mg tablet 25 mg PO TID PRN anxiety #180 tabs 06/21/24 trazodone 50 mg tablet See Rx Instructions .Route 07/01/24 .COMPLEX #135 tabs budesonide-formoterol HFA 160 2 puff inhalation BID #1 inh 07/27/24 mcg-4.5 mcg/actuation aerosol inhaler (Symbicort) ipratropium 0.5 mg-albuterol 3 mg 3 ml UPD Q6H PRN Wheezing #24 pkgs 07/27/24 (2.5 mg base)/3 mL nebulization soln multivitamin (Multiple Vitamins 1 tab PO DAILY #0 tabs 07/27/24 tablet) naltrexone 50 mg tablet 50 mg PO DAILY #30 tabs 07/27/24 topiramate 50 mg tablet 50 mg PO HS #30 tabs 07/27/24 pantoprazole 40 mg tablet,delayed 40 mg PO BID #60 tabs 08/06/24 release (Protonix) quetiapine 100 mg tablet See Rx Instructions .Route 10/17/24 .COMPLEX #135 tabs chlorhexidine gluconate 0.12 % 15 ml mucous membrane BID #900 mL 10/30/24 mouthwash doxepin 25 mg capsule 25 mg PO BID #180 caps 10/30/24 doxycycline hyclate 100 mg capsule 100 mg PO DAILY #180 caps 10/30/24 gabapentin 300 mg capsule 300 mg PO BID #180 caps 10/30/24 lisinopril 20 mg tablet 20 mg PO DAILY #90 tab-caps 10/30/24 naltrexone 50 mg tablet 50 mg PO DAILY #30 tabs 10/30/24 pantoprazole 40 mg tablet,delayed 40 mg PO BID #60 tabs 10/30/24 release (Protonix) propranolol 20 mg tablet 20 mg PO BID #180 tabs 10/30/24 tiotropium bromide 1.25 2 puff inhalation DAILY #4 grams 10/30/24 mcg/actuation mist for inhalation (Spiriva Respimat) topiramate 50 mg tablet 50 mg PO HS #30 tabs 10/30/24 trazodone 50 mg tablet See Rx Instructions .Route 10/30/24 .COMPLEX #135 tabs Allergies Allergy/AdvReac Type Severity Reaction Status Date / Time hydromorphone (From Dilaudid) Allergy Severe Itching Verified 10/30/24 13:04 oxycodone AdvReac Unknown TERRIBLE Verified 10/30/24 13:04 DREAMS General ALISTAIR: 3 Review of Systems Narrative: see HPI Exam Narrative Exam Narrative: General: Alert, in no acute distress, clinically intoxicated Head: Normocephalic, atraumatic Neck: Trachea midline, Neck supple. ENT: MMM. No oropharygeal lesions or exudate. Cardiac: RRR, no murmurs appreciated Resp: No respiratory distress. CTAB. Abd: Soft, non-distended, nontender : No suprapubic tenderness. Extremities: No deformities. No peripheral edema. Neuro: GCS 15. PERRL. EOMI. Slightly slurred speech. Motor- 5/5 strength symmetric bilateral upper and lower extremities Sensation- Intact to light touch and symmetric multiple dermatomes including upper and lower extremities Coordination- + dysmetria on finger to nose bilaterally Reflexes- 2/4 achilles & patellar, no clonus Gait/station: Not tested CRANIAL NERVES: II: Pupils equal and reactive, miosis III, IV, : EOM intact, no gaze preference or deviation, no nystagmus. V: normal sensation in V1, V2, and V3 segments bilaterally VII: no asymmetry, no nasolabial fold flattening VIII: normal hearing to speech IX, X: normal palatal elevation, no uvular deviation XI: 5/5 head turn and 5/5 shoulder shrug bilaterally XII: midline tongue protrusion Medical Decision Making 44yo F with hx ETOH abuse, CKD, anemia, chronic LUQ abd pain with pancreatic pseudocyst, presenting via EMS for ETOH intoxication and hypotension. Was taken in by PD for intoxication; BP noted to be 90's/50's, and so sent to the ED for evaluation. BP here adequate 90's/60's with MAP >65. Clinically intoxicated on exam, no abdominal tenderness, asided from slurred speech and dysmetria non-focal neurologic exam. EKG NSR, appropriate intervals, no ST segment or T wave abnormalities to suggest occlusive ME. On reassessment shortly after arrival patient not responsive to voice or touch and requiring sternal rub to rouse, GCS 13 (E2 V5 M6), pupils noted to be more miotic. Given IN narcan without effect; will try IV as well though patient without hx of opiate dependence she does have significant polypharmacy on [facility] record review and this may represent combination of home meds with ETOH. Will also give IVFB for borderline pressure. -Labs reviewed as below, CBC with anemia Hg 6.3 (baseline in 7-8 range on [facility] record review) CMP with Cr mildly elevated at 1.3 otherwise no actionable abnormalities (will repeat after IVFB), Mg normal, VBG with mild metabolis acidosis with bicarb of 21 and no hypercapnea but also no effective respiratory compensation, etoh positive at 124, tylenol negative, salicylate 6.1 (theraputic range). -No improvement with IV Narcan; on reassessment does rouse to voice. Will allow time to metabolize substances. -Confirmatory H&H sent and is 5.6, drop not unexpected after IVFB and likely dilutional, nothing on history or exam to suggest active bleeding (though she does have a history of chronic upper GI bleed). She also has chronic LUQ pain, though no tenderness on my exam; will get CT abd pelvis to evaluate spleen. -Typed and crossmatched; I do feel she needs urgent transfusion however with stable hemodynamics (adequate BP, no tachycardia) and no evident active hemmorahge at this time and chronicly low baseline I do not think emergent transfusion when she is too intoxicated to consent is indicated. -CT head independently reviewed; no ICH on my view, radiology read with no acute abnormalities and small meningioma also present on prior imaging. -CT abd/pelvis independently reviewed; no free fluid on my view, radiology read as below with no acute findings On reassessment she is much more alert, rouses to voice. Remains clinically intoxicated. Repeat VBG slightly worse with pH of 7.24- bicarb remains stable however CO2 more elevated (though still not hypercapneic). Given her clearly improving mental status, I do not feel she needs to be intubated and I am hesitant to start NIPPV given intoxication and risk for vomiting. Will continue to monitor respiratory and mental status closely. -Repeat BMP with Cr improved to 1.1. Repeat salicylate not rising. Lactate normal. On subsequent reassessment again mental status improving, rouses to voice, though falls asleep during conversation reviewing CT findings (all of which are chronic) and she is unable to meaningfully engage in discussion regarding these. I do not feel she has capacity yet to consent for blood though expect she will by morning. Vital signs remain acceptable. -Repeat VBG improving, now with appropriate respiratory compensation, pH 7.34, Hg relatively stable at 5.4. With hx of chronic UGI bleed, will give IV protonix while awaiting pt capacity to discuss transfusion and possible endocsopy. On reassessment at 0630 patient continues to improve in regards to her mental status but remains unable to demonstrate capacity, falling asleep mid conversation and not able to retain information. Suspect ETOH and polypharmacy driving this. Vital signs remain reassuring with no tachycardia, MAP >65 (nursing checking manual as auto cuff reads low while patient sleeping on her arm). Will be signed out to oncoming physician, plan to reassess for capacity and transfuse when appropriate. Disposition pending clinical course. CT head: IMPRESSION: No acute intracranial abnormality appreciated Brain: No intracranial hemorrhage appreciated. No significant focal mass effect or significant midline shift. Subcentimeter right frontal meningioma without associated mass effect, also seen previously. CT abd/pelvis: IMPRESSION: 1. Fluid collection extending between the pancreatic tail and spleen, also seen previously. Consider pseudocyst, abscess, seroma. Clinical correlation is needed. 2. Additional findings as above Pancreas: Again seen is a peripherally enhancing tract of fluid extending from the pancreatic tail to the anterior superior border of the spleen. An adjacent smaller fluid collection is also noted. Spleen: Contour irregularity and linear hypodensities again seen in the spleen. Quality:SDOH Health Related Social Needs: Health related social needs material hardship house/econ circumstance Health related social needs details some questions not being answered properly. Critical Care Time Critical Care Time Critical Care Time: Yes Total Critical Care Time: 58 Attestation: Due to a high probability of clinically significant, life threatening deterioration, the patient required my highest level of preparedness to intervene emergently and I personally spent this critical care time directly and personally managing the patient. This critical care time included obtaining a history; examining the patient; pulse oximetry; ordering and review of studies; arranging urgent treatment with development of a management plan; evaluation of patient's response to treatment; frequent reassessment; and, discussions with other providers. This critical care time was performed to assess and manage the high probability of imminent, life-threatening deterioration that could result in multi-organ failure. It was exclusive of separately billable procedures and treating other patients PFSH All Active Problems (Updated 12/13/24 @ 05:44 by Zara Macias MD) Pancreatic pseudocyst (Acute) Meningioma (Acute) Altered mental status (Acute) Acidosis (Acute) Acute on chronic anemia (Acute) Alcohol intoxication (Acute) Alcohol dependence (Acute) COVID-19 virus infection (Acute) COVID (Acute) Alcohol intoxication (Acute) Alcohol use disorder in remission (Acute) Anemia (Chronic) Alcohol intoxication in active alcoholic (Acute) CKD (chronic kidney disease) (Chronic) Anemia (Chronic) Depression with anxiety (Chronic) Abdominal fluid collection (Acute) Dyslipidemia (Acute) Abdominal pain, chronic, left upper quadrant (Acute) Chronic upper gastrointestinal bleeding (Acute) Cyst and pseudocyst of pancreas (Acute) Anxiety (Chronic) DUB (dysfunctional uterine bleeding) (Acute) Impaired fasting blood sugar (Acute 08/01/05) Obesity, unspecified (Acute 05/31/11) Atypical squamous cells of undetermined significance (ASC-US) on cervical Pap smear (Acute 08/05/09) ASCUS 08/05/09; 05/31/2011 Spinal stenosis of lumbar region (Acute 01/11/10) LS spine surg; Dr Sebastian Walker Tobacco dependence (Acute 08/01/05) Medical History Pulmonary embolus Helicobacter pylori (H. pylori) Chronic pain (02/20/09) chronic tramadol rx, back pain, sciatica despite LS surg 2009. Depression (04/03/15) Sertaline in the past with good relief of sx but then developed intolerable adverse rxns (nausea, flushing) Started on venlafaxine 03/2015 PHQ9 score = 9, indicating mild depression 03/2015 Anemia COPD (chronic obstructive pulmonary disease) HTN (hypertension), benign Spinal stenosis Lumbar region Surgical History History of esophagogastroduodenoscopy (EGD) (~08/05/24) w bx. per report-negative for H.Pylori Internal injury, spleen, closed with IR embolization Back surgery L5-S1 decompression 2009 Family History Mother , lung cancer at age 50. No problems noted. Father , MVA No problems noted. Other Lung cancer Social History Smoking/Tobacco Use Status: Current every day Tobacco Type: cigarettes Smoking risk assessment performed?: Yes Alcohol Intake: current Alcohol Intake frequency: 3 or more drinks per day Alcohol type: beer and hard liquor Drug use: Never Substance use type: does not use Details: last drink about 3 weeks ago. 10/13/24 Housing: other Do you feel safe at home: Yes Do you feel safe in your relationship?: Yes
[2024-12-13 00:50] LABS: Abs Immature Grans 0.07 10^3/uL (0.0-0.06); BE (Venous) -6 mmol/L (-2-3); HCO3 (Venous) 21 mmol/L (23-28); HCT 23.3 % (36.0-46.0); Immature Grans % 1.0 %; MCH 22.3 pg (27.0-33.0); MCHC 27.0 % (32.0-36.0); MCV 83 fL (80-95); O2 Sat (Venous) 83 %; RBC 2.82 10^6/uL (3.93-5.22); RDW 20.0 % (11.7-14.6); RDW-SD 59.8 fL; TCO2 (Venous) 21 mmol/L (24-29); WBC 7.02 10^3/uL (4.4-10.8); pCO2 (Venous) 44 mmHg (41-51); pO2 (Venous) 54 mmHg
[2024-12-13] MEDS: Naloxone 0.4 MG/ML VIAL IVP (00:50)
[2024-12-13 00:53] LABS: HGB 6.3 g/dL (11.2-15.7)
[2024-12-13 01:01] LABS: Hypochromasia 2+
[2024-12-13 01:10] LABS: ALT 15 U/L (14-59); AST 23 U/L (15-37); Albumin 3.3 g/dL (3.4-5.0); Alkaline Phosphatase 76 U/L (46-116); Anion Gap 12.4 mmol/L (3-11); BUN 21 mg/dL (7-18); Bilirubin, Total 0.2 mg/dL (0.2-1.0); CO2 21.6 mmol/L (21.0-32.0); Calcium 8.5 mg/dL (8.5-10.1); Chloride 108 mmol/L (98-107); Glucose 107 mg/dL (74-106); Magnesium 2.2 mg/dL (1.8-2.4); Potassium 3.9 mmol/L (3.5-5.1); Sodium 142 mmol/L (136-145); Total Protein 7.9 g/dL (6.4-8.2)
[2024-12-13] MEDS: Normal Saline 1,000 ML 1000 ML IV (01:27)
[2024-12-13 01:34] LABS: HGB 5.6 g/dL (11.2-15.7)
[2024-12-13 01:35] LABS: HCT 20.6 % (36.0-46.0)
[2024-12-13 01:43] LABS: Anion Gap 12.2 mmol/L (3-11); BUN 22 mg/dL (7-18); CO2 22.8 mmol/L (21.0-32.0); Calcium 8.2 mg/dL (8.5-10.1); Chloride 109 mmol/L (98-107); Glucose 112 mg/dL (74-106); Potassium 4.1 mmol/L (3.5-5.1); Sodium 144 mmol/L (136-145)
[2024-12-13 01:48] LABS: Salicylate 6.1 mg/dL (<2.8)
[2024-12-13 01:49] LABS: Acetaminophen < 2 ug/mL (10-30)
--- NOTE | 2024-12-13 02:57 | DI.CT_ITS ---
Exam(s) CT ABDOMEN PELVIS W EXAM: CT ABDOMEN PELVIS W CLINICAL HISTORY: LUQ abdominal pain. TECHNIQUE: Imaging Protocol: Axial computed tomography images with coronal and sagittal reformatted images were created and reviewed CONTRAST MATERIAL: Intravenous: Omnipaque 350 Contrast volume:75 ml Oral: no COMPARISON: CT CT ABDOMEN PELVIS CTA from 08/24/2024 FINDINGS: ABDOMEN and PELVIS: Exam is limited by motion and arm positioning. Lung Bases: No acute findings. Liver: Normal density. No suspicious mass. Gallbladder and biliary tract: No radiodense calculus. No wall thickening or pericholecystic fluid. No biliary dilation. Pancreas: Normal density. No abnormal calcifications or inflammatory process. No evidence of mass. Spleen: Stable contour deformity of the spleen related to trauma sustained 2022. Stable small subcapsular splenic fluid. Stable fluid collections seen anterior to the spleen. Kidneys: Normal size, contour and axis. No radiodense stones. No obstructive uropathy. No suspicious masses seen. Adrenal glands: No masses seen. Vasculature: Abdominal aorta non-dilated. Soft tissues: Unremarkable. Bladder: No gross wall thickening. No calculi.No focal mass. Bowel: No obstruction. No bowel wall thickening. Appendix normal. Peritoneal cavity: No ascites. No focal collection. No mesenteric inflammatory response. No free air. Bones: Old left rib fractures. No acute fractures peer degenerative changes in the lower lumbar spine. Reproductive organs: Fibroids. Lymph nodes: No pathologically enlarged lymph nodes. IMPRESSION:: No acute abnormality in the abdomen or pelvis. Stable posttraumatic contour deformity of the spleen. Stable adjacent fluid collections. The preliminary [facility] report was reviewed. RADIATION DOSE DELIVERED: 758.48mGy.cm Total DLP DATA REPOSITORY: All CT scans at this facility are submitted to the National Radiology Data Registry (NRDR) Dose Index Registry (DIR) with the [employer] ([employer]). RADIATION OPTIMIZATION: All CT scans at this facility use at least one of these dose optimization techniques: automated exposure control; mA and/or kV adjustment per patient size (includes targeted exams where dose is matched to clinical indication); or iterative reconstruction.
--- NOTE | 2024-12-13 02:57 | DI.CT_ITS ---
Exam(s) CT HEAD WO EXAM: CT HEAD WO CLINICAL HISTORY: altered mental status. TECHNIQUE: Imaging Protocol: Axial computed tomography images with coronal and sagittal reformatted images were created and reviewed COMPARISON: CT CT HEAD WO from 09/03/2024 FINDINGS: Exam is mildly limited by motion. Ventricles and Extra axial spaces: Normal in size and morphology for the patient's age. Stable small high right frontal meningioma. Hemorrhage: None. Cerebral parenchyma: No evidence of acute infarct or mass. Midline shift: None. Brainstem/Cerebellum: Normal. Bones: No skull or facial fractures. Visualized Paranasal sinuses:Clear. Mastoids: Clear. Soft Tissues: Unremarkable. ORBITS: Unremarkable. PITUITARY: Not enlarged. IMPRESSION: No acute intracranial process. The preliminary [facility] report was reviewed. RADIATION DOSE DELIVERED: 1,145.54mGy.cm Total DLP DATA REPOSITORY: All CT scans at this facility are submitted to the National Radiology Data Registry (NRDR) Dose Index Registry (DIR) with the [employer] ([employer]). RADIATION OPTIMIZATION: All CT scans at this facility use at least one of these dose optimization techniques: automated exposure control; mA and/or kV adjustment per patient size (includes targeted exams where dose is matched to clinical indication); or iterative reconstruction.
[2024-12-13] MEDS: Omnipaque 350 MG/ML 100 ML BTL IJ (02:59)
[2024-12-13] MEDS: Normal Saline - Diluent 50 ML VIAL IJ (03:00)
[2024-12-13] MEDS: Normal Saline Flush 10 ML SYR IVP (03:00)
--- NOTE | 2024-12-13 03:01 | DI.[facility]_ITS ---
PROCEDURE INFORMATION: Exam: CT Head Without Contrast Exam date and time: 12/13/2024 2:21 AM Age: 54 years old Clinical indication: Altered mental status/memory loss; Confusion or disorientation TECHNIQUE: Imaging protocol: Computed tomography of the head without contrast. Radiation optimization: All CT scans at this facility use at least one of these dose optimization techniques: automated exposure control; mA and/or kV adjustment per patient size (includes targeted exams where dose is matched to clinical indication); or iterative reconstruction. COMPARISON: CT HEAD WO 09/03/2024 3:22 PM FINDINGS: Limitations: Motion artifact degrades image quality. Brain: No intracranial hemorrhage appreciated. No significant focal mass effect or significant midline shift. Subcentimeter right frontal meningioma without associated mass effect, also seen previously. Cerebral ventricles: No disproportionate ventriculomegaly. Paranasal sinuses: No air-fluid levels seen. Mastoid air cells: No mastoid effusion. Orbital cavities: Exophthalmos. Bones: No acute cranial vault fracture seen. Soft tissues: No acute findings. IMPRESSION: No acute intracranial abnormality appreciated. Dictated and Authenticated by: Cristina Robledo MD. Orderin Gilberto Zuñiga MD
[2024-12-13 03:02] LABS: BE (Venous) -7 mmol/L (-2-3); HCO3 (Venous) 20 mmol/L (23-28); O2 Sat (Venous) 69 %; TCO2 (Venous) 21 mmol/L (24-29); pCO2 (Venous) 47 mmHg (41-51); pO2 (Venous) 43 mmHg
--- NOTE | 2024-12-13 03:14 | DI.VRAD_ITS ---
PROCEDURE INFORMATION: Exam: CT Abdomen And Pelvis With Contrast Exam date and time: 12/13/2024 2:29 AM Age: 54 years old Clinical indication: Abdominal pain; Localized; Left upper quadrant (luq); Luq pain TECHNIQUE: Imaging protocol: Computed tomography of the abdomen and pelvis with contrast. Radiation optimization: All CT scans at this facility use at least one of these dose optimization techniques: automated exposure control; mA and/or kV adjustment per patient size (includes targeted exams where dose is matched to clinical indication); or iterative reconstruction. Contrast material: [id number]; Contrast volume: 75 ml; Contrast route: INTRAVENOUS (IV); COMPARISON: CT ABDOMEN PELVIS CTA 08/24/2024 6:43 PM FINDINGS: Limitations: Images are degraded due to artifact caused by patient motion and arm positioning. Liver: No focal hepatic lesion identified. Gallbladder and biliary ducts: No radiodense gallbladder calculi seen. Pancreas: Again seen is a peripherally enhancing tract of fluid extending from the pancreatic tail to the anterior superior border of the spleen. An adjacent smaller fluid collection is also noted. Spleen: Contour irregularity and linear hypodensities again seen in the spleen. Adrenal glands: No mass. Kidneys and ureters: No hydronephrosis or evidence for pyelonephritis. Stomach and bowel: No intestinal obstruction is appreciated. Appendix: No evidence of appendicitis. Intraperitoneal space: No free air. Vasculature: Atherosclerotic changes in the aorta and its branches. Lymph nodes: Nonspecific mesenteric and retroperitoneal lymph nodes. Urinary bladder: No acute findings. Reproductive: Fibroid uterus. Bones/joints: No pertinent acute abnormality seen. Soft tissues: No pertinent acute abnormality seen. IMPRESSION: 1. Fluid collection extending between the pancreatic tail and spleen, also seen previously. Consider pseudocyst, abscess, seroma. Clinical correlation is needed. 2. Additional findings as above. Dictated and Authenticated by: Cristina Robledo MD. Orderin Gilberto Zuñiga MD
[2024-12-13 05:34] LABS: BE (Venous) -4 mmol/L (-2-3); HCO3 (Venous) 21 mmol/L (23-28); O2 Sat (Venous) 96 %; TCO2 (Venous) 21 mmol/L (24-29); pCO2 (Venous) 39 mmHg (41-51); pO2 (Venous) 78 mmHg
[2024-12-13 05:38] LABS: HCT 19.9 % (36.0-46.0); HGB 5.4 g/dL (11.2-15.7)
[2024-12-13 06:12] LABS: Salicylate 6.0 mg/dL (<2.8)
[2024-12-13 06:14] LABS: Acetaminophen < 2 ug/mL (10-30)
[2024-12-13] MEDS: Pantoprazole 40 MG VIAL IVP (06:43)
--- NOTE | 2024-12-13 07:24 | ED.PROG_ITS ---
Date of service: 12/13/24 Time of Service: 07:25 Medical Decision Making I received signout on this 54-year-old female with acute on chronic anemia without melena nor gross blood. She has been consented and will receive 2 units of blood prior to hospitalization for ongoing monitoring and repeat H&H. She was also found to have a subcentimeter extra-axial cranial abnormality concerning for the possibility of meningioma. This has been present in the past. She was not familiar with this incidental finding. It does not appear that she has received an MRI. Will touch base with her primary care provider coordinate outpatient follow-up. 8:03 AM I was in touch with Dr. Mulligan who will help to arrange outpatient MRI. Patient has outpatient follow-up with PCPs office next week. Dr. Mccauley graciously agreed to accept the patient for hospitalization. Quality:SDOH Health Related Social Needs: Health related social needs material hardship house/ on circumstance Health related social needs details some questions not being answered properly. Discharge Plan Disposition Patient Disposition: Admit to [facility] Discharge Details Clinical Impression: Alcohol intoxication, Acute on chronic anemia, Acidosis, Altered mental status, Meningioma, Pancreatic pseudocyst, CKD (chronic kidney disease) Primary Care Provider: Paula Barboza ED Provider: Slava Donald Home Meds and New Rx's Prescriptions: No Action lisinopril 20 mg tablet 20 mg PO DAILY Qty: 90 3RF Spiriva Respimat 1.25 mcg/actuation mist 2 puff inhalation DAILY Qty: 4 12RF Patient Comments: states needs refill albuterol sulfate [Ventolin HFA] 90 mcg/actuation HFA aerosol inhaler See Rx Instructions .ROUTE .COMPLEX Qty: 18 12RF Dose Instruction: INHALE TWO PUFFS BY MOUTH EVERY 4 HOURS NEEDED Rx Instructions: INHALE TWO PUFFS BY MOUTH EVERY 4 HOURS NEEDED ferrous sulfate 325 mg (65 mg iron) tablet 325 mg PO DAILY Qty: 30 0RF folic acid 1 mg tablet 1 mg PO DAILY Qty: 30 0RF hydroxyzine HCl 25 mg tablet 25 mg PO TID PRN (Reason: anxiety) Qty: 180 1RF (DME) Hand Held Nebulizer See Rx Instructions .Route .MEDSUPPLY Qty: 1 0RF Rx Instructions: As directed lisinopril 20 mg tablet 20 mg PO DAILY Qty: 90 3RF naltrexone 50 mg tablet 50 mg PO DAILY Qty: 30 2RF pantoprazole [Protonix] 40 mg tablet,delayed release (DR/EC) 40 mg PO BID Qty: 60 0RF Spiriva Respimat 1.25 mcg/actuation mist 2 puff inhalation DAILY Qty: 4 12RF Patient Comments: states needs refill topiramate 50 mg tablet 50 mg PO HS Qty: 30 0RF trazodone 50 mg tablet See Rx Instructions .ROUTE .COMPLEX Qty: 135 1RF Dose Instruction: TAKE 1 & 1/2 TABLETS BY MOUTH DAILY AT BEDTIME NEEDED FOR SLEEP Rx Instructions: TAKE 1 & 1/2 TABLETS BY MOUTH DAILY AT BEDTIME NEEDED FOR SLEEP doxepin 25 mg capsule 25 mg PO BID Qty: 180 3RF propranolol 20 mg tablet 20 mg PO BID Qty: 180 3RF doxycycline hyclate 100 mg capsule 100 mg PO DAILY Qty: 180 3RF gabapentin 300 mg capsule 300 mg PO BID Qty: 180 3RF chlorhexidine gluconate 0.12 % mouthwash 15 ml mucous membrane BID Qty: 900 11RF (DME) POCKET CHAMBER Spacer See Rx Instructions .ROUTE .MEDSUPPLY Qty: 1 0RF Rx Instructions: As directed trazodone 50 mg tablet See Rx Instructions .ROUTE .COMPLEX Qty: 135 1RF Dose Instruction: TAKE 1 & 1/2 TABLETS BY MOUTH DAILY AT BEDTIME NEEDED FOR SLEEP Rx Instructions: TAKE 1 & 1/2 TABLETS BY MOUTH DAILY AT BEDTIME NEEDED FOR SLEEP quetiapine 100 mg tablet See Rx Instructions .ROUTE .COMPLEX Qty: 135 0RF Dose Instruction: TAKE ONE AND ONE-HALF TABLETS BY MOUTH AT BEDTIME DAILY Rx Instructions: TAKE ONE AND ONE-HALF TABLETS BY MOUTH AT BEDTIME DAILY pantoprazole [Protonix] 40 mg tablet,delayed release (DR/EC) 40 mg PO BID Qty: 60 0RF (DME) nebulizers Misc See Rx Instructions .ROUTE .MEDSUPPLY Qty: 1 0RF Rx Instructions: As directed thiamine HCl (vitamin B1) 100 mg tablet 100 mg PO DAILY Patient Comments: TAKE ONE TABLET BY MOUTH EVERY DAY multivitamin [Multiple Vitamins] Tablet 1 tab PO DAILY Qty: 0 0RF ipratropium-albuterol 0.5 mg-3 mg(2.5 mg base)/3 mL Solution For Nebulization 3 ml UPD Q6H PRN (Reason: Wheezing) Qty: 24 2RF naltrexone 50 mg Tablet 50 mg PO DAILY Qty: 30 2RF topiramate 50 mg Tablet 50 mg PO HS Qty: 30 0RF budesonide-formoterol [Symbicort] 160-4.5 mcg/actuation Hfa Aerosol Inhaler 2 puff inhalation BID Qty: 1 2RF
--- NOTE | 2024-12-13 08:06 | W.PM.HP.N ---
Date of service: 12/13/24 Time of Service: 08:00 Assessment and Plan Assessment and plan (1) Acute on chronic anemia: Status: Acute Assessment and plan: Hemoglobin in the 5's in the ED, 6's on arrival PRBC 2u transfusing Repeat H&H 7.7 / 26.1 Appreciate general surgery recommendations, no intervention at this time Likely acute on chronic blood loss, will monitor (2) Chronic upper gastrointestinal bleeding: Status: Acute Assessment and plan: No hematemesis Multiple endoscopies without findings, no varices H pylori negative per biopsy Will discontinue NPO and monitor (3) Acute renal injury: Status: Acute Assessment and plan: Likely ASIA, likely secondary to dehydration Continue fluid resuscitation, follow labs (4) Depression with anxiety: Status: Chronic Assessment and plan: Continue quetiapine, topiramate, trazodone (5) Alcohol dependence: Status: Acute Assessment and plan: BAL fell from 120's to zero in the ED No CIWA at this time History of Present Illness History of Present Illness Chief Complaint: intoxication Narrative: Pratima Bailon is a 54 year old woman presenting late December 12 with EtOH intoxication and hypotension. PD was engaged for intoxication; EMS found BP 90's / 50's requiring ED clearance. Patient reports her last drink was 3 shots of hard liquor the previous evening. She reports feeling lightheaded when standing. She has chronic LUQ abdominal pain which is unchanged and tolerable. No chest pain, no SOB, no N/V. In the ED she was febrile 38.0, tachycardic 92, hypotensive 98/64. EKG showed sinus rhythm, low voltage. CT abdomen/pelvis with no acute pathology. CT head with no acute pathology. BAL 124.6. Hemoglobin 6.3. Creatinine 1.3. UDS positive for tricyclics. Patient was not able to consent to transfusion until the morning, at which time her hemoglobin was 5.4. Transfusion was initiated in the ED. PMH includes EtOH dependence, CKD, chronic anemia, chronic LUQ pain due to pancreatic pseudocyst. PFSH All Active Problems (Updated 12/13/24 @ 19:06 by Freedom Mccauley MD) Acute renal injury (Acute) Pancreatic pseudocyst (Acute) Meningioma (Acute) Altered mental status (Acute) Acidosis (Acute) Acute on chronic anemia (Acute) Alcohol intoxication (Acute) Alcohol dependence (Acute) COVID-19 virus infection (Acute) COVID (Acute) Alcohol intoxication (Acute) Alcohol use disorder in remission (Acute) Anemia (Chronic) Alcohol intoxication in active alcoholic (Acute) CKD (chronic kidney disease) (Chronic) Anemia (Chronic) Depression with anxiety (Chronic) Abdominal fluid collection (Acute) Dyslipidemia (Acute) Abdominal pain, chronic, left upper quadrant (Acute) Chronic upper gastrointestinal bleeding (Acute) Cyst and pseudocyst of pancreas (Acute) Anxiety (Chronic) DUB (dysfunctional uterine bleeding) (Acute) Impaired fasting blood sugar (Acute 08/01/05) Obesity, unspecified (Acute 05/31/11) Atypical squamous cells of undetermined significance (ASC-US) on cervical Pap smear (Acute 08/05/09) ASCUS 08/05/09; 05/31/2011 Spinal stenosis of lumbar region (Acute 01/11/10) LS spine surg; Dr Sebastian Walker Tobacco dependence (Acute 08/01/05) Medical History Pulmonary embolus Helicobacter pylori (H. pylori) Chronic pain (02/20/09) chronic tramadol rx, back pain, sciatica despite LS surg 2009. Depression (04/03/15) Sertaline in the past with good relief of sx but then developed intolerable adverse rxns (nausea, flushing) Started on venlafaxine 03/2015 PHQ9 score = 9, indicating mild depression 03/2015 Anemia COPD (chronic obstructive pulmonary disease) HTN (hypertension), benign Spinal stenosis Lumbar region Surgical History History of esophagogastroduodenoscopy (EGD) (~08/05/24) w bx. per report-negative for H.Pylori Internal injury, spleen, closed with IR embolization Back surgery L5-S1 decompression 2009 Family History Mother , lung cancer at age 50. No problems noted. Father , MVA No problems noted. Other Lung cancer Social History Smoking/Tobacco Use Status: Current every day Tobacco Type: cigarettes Smoking risk assessment performed?: Yes Alcohol Intake: current Alcohol Intake frequency: 3 or more drinks per day Alcohol type: beer and hard liquor Drug use: Never Substance use type: does not use Details: last drink about 3 weeks ago. 10/13/24 Housing: homeless Do you feel safe at home: Yes Do you feel safe in your relationship?: Yes Meds Allergies and Home Medications Allergies Allergy/AdvReac Type Severity Reaction Status Date / Time hydromorphone (From Dilaudid) Allergy Severe Itching Verified 10/30/24 13:04 oxycodone AdvReac Unknown TERRIBLE Verified 10/30/24 13:04 DREAMS Home Medications Medication Instructions Recorded Confirmed Type inhalational spacing device #1 ea 09/28/20 12/13/24 Rx (POCKET CHAMBER spacer) nebulizers #1 ea 03/16/21 12/13/24 Rx lisinopril 20 mg tablet 20 mg PO DAILY #90 tab-caps 11/27/23 12/13/24 Rx tiotropium bromide 1.25 2 puff inhalation DAILY #4 grams 11/27/23 12/13/24 Rx mcg/actuation mist for inhalation (Spiriva Respimat) Hand Held Nebulizer #1 ea 06/21/24 12/13/24 Rx albuterol sulfate 90 mcg/actuation See Rx Instructions .Route 06/21/24 12/13/24 Rx aerosol inhaler (Ventolin HFA) .COMPLEX #18 grams ferrous sulfate 325 mg (65 mg 325 mg PO DAILY #30 tabs 06/21/24 12/13/24 Rx iron) tablet folic acid 1 mg tablet 1 mg PO DAILY #30 tabs 06/21/24 12/13/24 Rx hydroxyzine HCl 25 mg tablet 25 mg PO TID PRN anxiety #180 tabs 06/21/24 12/13/24 Rx trazodone 50 mg tablet See Rx Instructions .Route 07/01/24 12/13/24 Rx .COMPLEX #135 tabs thiamine HCl (vitamin B1) 100 mg 100 mg PO DAILY 07/24/24 12/13/24 History tablet budesonide-formoterol HFA 160 2 puff inhalation BID #1 inh 07/27/24 12/13/24 Rx mcg-4.5 mcg/actuation aerosol inhaler (Symbicort) ipratropium 0.5 mg-albuterol 3 mg 3 ml UPD Q6H PRN Wheezing #24 pkgs 07/27/24 12/13/24 Rx (2.5 mg base)/3 mL nebulization soln multivitamin (Multiple Vitamins 1 tab PO DAILY #0 tabs 07/27/24 12/13/24 Rx tablet) naltrexone 50 mg tablet 50 mg PO DAILY #30 tabs 07/27/24 12/13/24 Rx topiramate 50 mg tablet 50 mg PO HS #30 tabs 07/27/24 12/13/24 Rx pantoprazole 40 mg tablet,delayed 40 mg PO BID #60 tabs 08/06/24 12/13/24 Rx release (Protonix) quetiapine 100 mg tablet See Rx Instructions .Route 10/17/24 12/13/24 Rx .COMPLEX #135 tabs chlorhexidine gluconate 0.12 % 15 ml mucous membrane BID #900 mL 10/30/24 12/13/24 Rx mouthwash doxepin 25 mg capsule 25 mg PO BID #180 caps 10/30/24 12/13/24 Rx gabapentin 300 mg capsule 300 mg PO BID #180 caps 10/30/24 12/13/24 Rx lisinopril 20 mg tablet 20 mg PO DAILY #90 tab-caps 10/30/24 12/13/24 Rx naltrexone 50 mg tablet 50 mg PO DAILY #30 tabs 10/30/24 12/13/24 Rx pantoprazole 40 mg tablet,delayed 40 mg PO BID #60 tabs 10/30/24 12/13/24 Rx release (Protonix) propranolol 20 mg tablet 20 mg PO BID #180 tabs 10/30/24 12/13/24 Rx tiotropium bromide 1.25 2 puff inhalation DAILY #4 grams 10/30/24 12/13/24 Rx mcg/actuation mist for inhalation (Spiriva Respimat) topiramate 50 mg tablet 50 mg PO HS #30 tabs 10/30/24 12/13/24 Rx trazodone 50 mg tablet See Rx Instructions .Route 10/30/24 12/13/24 Rx .COMPLEX #135 tabs citalopram 40 mg tablet 40 mg PO DAILY 12/13/24 12/13/24 History Exam Narrative Exam Narrative: General: This is a somnolent woman in no distress HEENT: Normocephalic, atraumatic CV: RRR Resp: CTAB Abd: soft, NTND MSK: voluntary motion x4 Neuro: awake, alert, no focal deficits Results Labs 12/13/24 13:58 12/13/24 01:25 Labs: Laboratory Results - last 24 hr 12/13/24 12/13/24 12/13/24 00:40 01:25 03:00 WBC 7.02 RBC 2.82 L Hgb 6.3 L* 5.6 L* Hct 23.3 L 20.6 L* MCV 83 MCH 22.3 L MCHC 27.0 L RDW 20.0 H Plt Count MPV Immature Gran % 1.0 Neutrophils % 53.9 Lymphocytes % 28.6 Monocytes % 8.4 Eosinophils % 7.0 Basophils % 1.1 Nucleated RBC % 0.0 Absolute Neutrophils 3.78 Absolute Lymphocytes 2.01 Absolute Monocytes 0.59 Absolute Eosinophils 0.49 Absolute Basophils 0.08 RBC Morphology See Below Hypochromasia 2+ VBG pH 7.29 L 7.24 L VBG pCO2 44 47 VBG pO2 54 43 VBG HCO3 21 L 20 L VBG Total CO2 21 L 21 L VBG O2 Saturation 83 69 VBG Base Excess -6 L -7 L VBG Lactate Sodium 142 144 Potassium 3.9 4.1 Chloride 108 H 109 H Carbon Dioxide 21.6 22.8 Anion Gap 12.4 H 12.2 H BUN 21 H 22 H Creatinine 1.3 H 1.1 H Est GFR (CKD-EPI 2020) 48.26 58.97 Glucose 107 H 112 H Calcium 8.5 8.2 L Magnesium 2.2 Total Bilirubin 0.2 AST 23 ALT 15 Alkaline Phosphatase 76 Total Protein 7.9 Albumin 3.3 L Salicylates 6.1 Acetaminophen < 2 Ethyl Alcohol 124.6 H ABO/Rh A Positive Antibody Screen NEGATIVE Crossmatch See Detail 12/13/24 12/13/24 05:30 05:43 WBC RBC Hgb 5.4 L* Hct 19.9 L* MCV MCH MCHC RDW Plt Count MPV Immature Gran % Neutrophils % Lymphocytes % Monocytes % Eosinophils % Basophils % Nucleated RBC % Absolute Neutrophils Absolute Lymphocytes Absolute Monocytes Absolute Eosinophils Absolute Basophils RBC Morphology Hypochromasia VBG pH 7.34 VBG pCO2 39 L VBG pO2 78 VBG HCO3 21 L VBG Total CO2 21 L VBG O2 Saturation 96 VBG Base Excess -4 L VBG Lactate 1.8 Sodium Potassium Chloride Carbon Dioxide Anion Gap BUN Creatinine Est GFR (CKD-EPI 2020) Glucose Calcium Magnesium Total Bilirubin AST ALT Alkaline Phosphatase Total Protein Albumin Salicylates 6.0 Acetaminophen < 2 Ethyl Alcohol ABO/Rh Antibody Screen Crossmatch Last Vital Signs Temp 36.8 C 12/13/24 08:01 Pulse 86 12/13/24 08:01 Resp 14 12/13/24 08:01 BP 103/60 12/13/24 08:01 Pulse Ox 91 L 12/13/24 08:01 PAWSS Have you Been Recently Intoxicated or Drunk Within the Last 30 days?: Yes Have you Ever Experienced Previous Episodes of Alcohol Withdrawal?: Yes Have you ever Experienced Withdrawal Seizures?: No Have you ever Experienced Delirium Tremens(DT)s?: No Have you ever undergone Alcohol Rehabilitation Treatment (i.e, inpt ot outpatient treatment programs)?: Yes Have you ever Experienced Blackouts?: Yes Have you ever Combined Alcohol with other Downers within the last 90 days?: No Have you ever Combined Alcohol with any other Substance of Abuse during the last 90 days?: No Positive Blood Alcohol level on Presentation? [PCS.BAL]: Yes Evidence of Increased Autonomic Activity (i.e. HR>120, tremor, sweating, agitation, nausea)?: No Result: 5 Time Spent Time spent with Patient: 40-54 minutes Time was spent: preparing to see the patient(eg.review tests), obtaining and/or reviewing separately otained hiistory, ordering medications,tests, procedures, referring, communicating with other health manager intensive care, indepentently interpreting results, counseling the patient and care coordination
--- NOTE | 2024-12-13 08:56 | W.SURGCON ---
Date of service: 12/13/24 Time of Service: 08:56 Assessment and Plan Assessment and plan (1) Chronic upper gastrointestinal bleeding: Status: Acute Assessment and plan: Patient is a 54-year-old female who presents to the ED via EMS for acute alcohol intoxication and hypotension. Upon further evaluation emergency department she was found to have a hemoglobin of 6.8. This was further followed and noted to be 5.4. She then received 2 g of PRBCs. On further discussion with her today she states that she had a dark bowel movement around 3 days ago but denies any further bowel movement since this time. She also notes that she has had an episode of nonbloody emesis yesterday. She states that this is unlike any previous GI bleed she has ever had previously. She does note a history of previous GI bleeds. On further review of her medical history she developed colonoscopy and upper endoscopy in August as well as a previous upper endoscopy. On presentation she was hemodynamically stable and her abdomen is soft and nontender to palpation. Her chronic anemia is likely in the setting of her chronic GI bleeding. At this time she has no indication for emergent upper endoscopy or colonoscopy. Would continue to trend CBC and monitor bowel function for evidence of bleeding. (2) Alcohol intoxication: Status: Acute History of Present Illness Narrative: Patient is a 54 yo female who presented to the ED via EMS for alcohol intoxication and hypertension. Per report in emergency department she endorses alcohol use and feeling lightheaded. In the ED she was also found to have anemia and given her history of GI bleeding surgery was consulted. On further discussion with her today. She notes that her last bowel movement was about 3 days ago. She states that it was dark at this time but she has had no further bowel movements. She notes that she did have an episode of emesis yesterday that was nonbloody. Otherwise she denies any abdominal pain, nausea, vomiting, fevers, chills. She notes that she is hungry. She states that she has had significant GI bleeding in the past with hematemesis however she has not experienced that this time. She notes that she has had a recent colonoscopy and upper endoscopy. Review of Systems Constitutional Constitutional: Denies chills and Denies fever(s) Cardiovascular Cardiovascular: Denies chest pain and Denies dyspnea Respiratory Respiratory: Denies dyspnea Gastrointestinal Gastrointestinal: Denies abdominal pain, Denies nausea and Denies vomiting PFSH All Active Problems (Updated 12/13/24 @ 05:44 by Zara Macias MD) Pancreatic pseudocyst (Acute) Meningioma (Acute) Altered mental status (Acute) Acidosis (Acute) Acute on chronic anemia (Acute) Alcohol intoxication (Acute) Alcohol dependence (Acute) COVID-19 virus infection (Acute) COVID (Acute) Alcohol intoxication (Acute) Alcohol use disorder in remission (Acute) Anemia (Chronic) Alcohol intoxication in active alcoholic (Acute) CKD (chronic kidney disease) (Chronic) Anemia (Chronic) Depression with anxiety (Chronic) Abdominal fluid collection (Acute) Dyslipidemia (Acute) Abdominal pain, chronic, left upper quadrant (Acute) Chronic upper gastrointestinal bleeding (Acute) Cyst and pseudocyst of pancreas (Acute) Anxiety (Chronic) DUB (dysfunctional uterine bleeding) (Acute) Impaired fasting blood sugar (Acute 08/01/05) Obesity, unspecified (Acute 05/31/11) Atypical squamous cells of undetermined significance (ASC-US) on cervical Pap smear (Acute 08/05/09) ASCUS 08/05/09; 05/31/2011 Spinal stenosis of lumbar region (Acute 01/11/10) LS spine surg; Dr Sebastian Walker Tobacco dependence (Acute 08/01/05) Medical History Pulmonary embolus Helicobacter pylori (H. pylori) Chronic pain (02/20/09) chronic tramadol rx, back pain, sciatica despite LS surg 2009. Depression (04/03/15) Sertaline in the past with good relief of sx but then developed intolerable adverse rxns (nausea, flushing) Started on venlafaxine 03/2015 PHQ9 score = 9, indicating mild depression 03/2015 Anemia COPD (chronic obstructive pulmonary disease) HTN (hypertension), benign Spinal stenosis Lumbar region Surgical History History of esophagogastroduodenoscopy (EGD) (~08/05/24) w bx. per report-negative for H.Pylori Internal injury, spleen, closed with IR embolization Back surgery L5-S1 decompression 2009 Family History Mother , lung cancer at age 50. No problems noted. Father , MVA No problems noted. Other Lung cancer Social History Smoking/Tobacco Use Status: Current every day Tobacco Type: cigarettes Smoking risk assessment performed?: Yes Alcohol Intake: current Alcohol Intake frequency: 3 or more drinks per day Alcohol type: beer and hard liquor Drug use: Never Substance use type: does not use Details: last drink about 3 weeks ago. 10/13/24 Housing: other Do you feel safe at home: Yes Do you feel safe in your relationship?: Yes Exam Narrative Exam Narrative: General: Well appearing, no acute distress. Skin: Good turgor, no visible rashes or lesion HEENT: Normocephalic, atraumatic CV: Regular rate Lungs: Bilateral equal chest rise, non-labored breathing Abdomen: Soft, non-tender, non-distended, no rebound or guarding Extremities: Warm, well perfused Neurologic: No focal deficits Psychiatric: Alert and oriented, normal mood and affect Results Last Vital Signs Temp 36.9 C 12/13/24 08:31 Pulse 79 12/13/24 08:31 Resp 14 12/13/24 08:31 BP 120/59 L 12/13/24 08:31 Pulse Ox 92 12/13/24 08:31 Labs 12/13/24 13:58 12/13/24 01:25 Labs: Laboratory Results - last 24 hr 12/13/24 12/13/24 12/13/24 00:40 01:25 03:00 WBC 7.02 RBC 2.82 L Hgb 6.3 L* 5.6 L* Hct 23.3 L 20.6 L* MCV 83 MCH 22.3 L MCHC 27.0 L RDW 20.0 H Plt Count MPV Immature Gran % 1.0 Neutrophils % 53.9 Lymphocytes % 28.6 Monocytes % 8.4 Eosinophils % 7.0 Basophils % 1.1 Nucleated RBC % 0.0 Absolute Neutrophils 3.78 Absolute Lymphocytes 2.01 Absolute Monocytes 0.59 Absolute Eosinophils 0.49 Absolute Basophils 0.08 RBC Morphology See Below Hypochromasia 2+ VBG pH 7.29 L 7.24 L VBG pCO2 44 47 VBG pO2 54 43 VBG HCO3 21 L 20 L VBG Total CO2 21 L 21 L VBG O2 Saturation 83 69 VBG Base Excess -6 L -7 L VBG Lactate Sodium 142 144 Potassium 3.9 4.1 Chloride 108 H 109 H Carbon Dioxide 21.6 22.8 Anion Gap 12.4 H 12.2 H BUN 21 H 22 H Creatinine 1.3 H 1.1 H Est GFR (CKD-EPI 2020) 48.26 58.97 Glucose 107 H 112 H Calcium 8.5 8.2 L Magnesium 2.2 Total Bilirubin 0.2 AST 23 ALT 15 Alkaline Phosphatase 76 Total Protein 7.9 Albumin 3.3 L Salicylates 6.1 Acetaminophen < 2 Ethyl Alcohol 124.6 H ABO/Rh A Positive Antibody Screen NEGATIVE Crossmatch See Detail 12/13/24 12/13/24 12/13/24 05:30 05:43 07:54 WBC RBC Hgb 5.4 L* Hct 19.9 L* MCV MCH MCHC RDW Plt Count MPV Immature Gran % Neutrophils % Lymphocytes % Monocytes % Eosinophils % Basophils % Nucleated RBC % Absolute Neutrophils Absolute Lymphocytes Absolute Monocytes Absolute Eosinophils Absolute Basophils RBC Morphology Hypochromasia VBG pH 7.34 VBG pCO2 39 L VBG pO2 78 VBG HCO3 21 L VBG Total CO2 21 L VBG O2 Saturation 96 VBG Base Excess -4 L VBG Lactate 1.8 Sodium Potassium Chloride Carbon Dioxide Anion Gap BUN Creatinine Est GFR (CKD-EPI 2020) Glucose Calcium Magnesium Total Bilirubin AST ALT Alkaline Phosphatase Total Protein Albumin Salicylates 6.0 Acetaminophen < 2 Ethyl Alcohol < 3.0 ABO/Rh Antibody Screen Crossmatch
[2024-12-13 11:10] LABS: Cannabinoids THC Negative (Negative)
--- NOTE | 2024-12-13 11:45 | W.PC.ACHO ---
Registration Status: REG ER Primary Language: Preferred Language: Pashto ED Information & Data Chief Complaint Abd Prob 12/13/24 00:20 Chief Complaint Abd Prob 12/12/24 23:58 Triage Note Pt BIBA with complaints of 12/12/24 23:58 dizziness, LLQ pain, and hypotension. (+) ETOH Medical / Surgical History (Last Reviewed 10/14/24 @ 02:04 by Elio Navarrete MD) Pulmonary embolus Helicobacter pylori (H. pylori) Chronic pain (02/20/09) Depression (04/03/15) Anemia COPD (chronic obstructive pulmonary disease) HTN (hypertension), benign Spinal stenosis (Last Reviewed 10/14/24 @ 02:04 by Elio Navarrete MD) History of esophagogastroduodenoscopy (EGD) (~08/05/24) Internal injury, spleen, closed Back surgery Most Recent Vital Signs Temperature 37.1 C 12/13/24 10:36 Temperature Source Tympanic 12/12/24 23:58 Pulse 74 12/13/24 10:36 Pulse 63 12/13/24 02:10 Respiratory Rate 16 12/13/24 10:36 Blood Pressure 135/61 12/13/24 10:36 Blood Pressure Mean 91 12/13/24 07:10 Pulse Oximetry 92 12/13/24 10:36 Oxygen Delivery Method Room Air 12/13/24 10:36 Oxygen Flow Rate 0 12/13/24 10:36 Pain Level 7 12/12/24 23:58 Allergies hydromorphone (From Dilaudid) Allergy (Severe, Verified 10/30/24 13:04) Itching Face swelling, intolerance oxycodone Adverse Reaction (Unknown, Verified 10/30/24 13:04) TERRIBLE DREAMS FROM PERCOCET, intolerance Precautions Isolation Standard precaution 12/13/24 00:20 Active Medications Generic Name Dose Route Start Last Admin Trade Name Freq PRN Reason Stop Dose Admin Iohexol 100 ml 12/13/24 03:00 12/13/24 02:59 Omnipaque 350 Mg/Ml 100 Ml Btl IJ 01/12/25 23:59 75 ml DIRECTED SHASHANK Administration Sodium Chloride 50 ml 12/13/24 03:00 12/13/24 03:00 Normal Saline - Diluent 50 Ml Vial IJ 50 ml DIRECTED SHASHANK Administration Sodium Chloride 0 ml 12/13/24 02:59 12/13/24 03:00 Normal Saline Flush 10 Ml Syr IVP 10 ml PRN PRN Administration IV IV Catheter Type [Right Hand] Peripheral IV IV Catheter Gauge [Right Hand] 20 Diet Orders Category Date Time Status Nothing Per Oral [DIET] Nutrition 12/13/24 07:55 Active Diagnostics 12/13/24 12/13/24 12/13/24 Range/Units 10:21 07:54 05:43 WBC (4.4-10.8) 10^3/uL RBC (3.93-5.22) 10^6/uL Hgb (11.2-15.7) g/dL Hct (36.0-46.0) % MCV (80-95) fL MCH (27.0-33.0) pg MCHC (32.0-36.0) % RDW (11.7-14.6) % Plt Count (130-400) 10^3/uL MPV (8.0-11.0) fL Immature Gran % % Neutrophils % % Lymphocytes % % Monocytes % % Eosinophils % % Basophils % % Nucleated RBC % (0.0-0.3) % Absolute Neutrophils (1.2-6.7) 10^3/uL Absolute Lymphocytes (1.2-3.4) 10^3/uL Absolute Monocytes (0.1-0.8) 10^3/uL Absolute Eosinophils (0.0-0.7) 10^3/uL Absolute Basophils (0.0-0.2) 10^3/uL RBC Morphology Hypochromasia VBG pH (7.31-7.41) VBG pCO2 (41-51) mmHg VBG pO2 mmHg VBG HCO3 (23-28) mmol/L VBG Total CO2 (24-29) mmol/L VBG O2 Saturation % VBG Base Excess (-2-3) mmol/L VBG Lactate (<or=2.0) mmol/L Sodium (136-145) mmol/L Potassium (3.5-5.1) mmol/L Chloride (98-107) mmol/L Carbon Dioxide (21.0-32.0) mmol/L Anion Gap (3-11) mmol/L BUN (7-18) mg/dL Creatinine (0.55-1.02) mg/dL Est GFR (CKD-EPI 2020) (mL/min/1.73m2) Glucose (74-106) mg/dL Calcium (8.5-10.1) mg/dL Magnesium (1.8-2.4) mg/dL Total Bilirubin (0.2-1.0) mg/dL AST (15-37) U/L ALT (14-59) U/L Alkaline Phosphatase (46-116) U/L Total Protein (6.4-8.2) g/dL Albumin (3.4-5.0) g/dL Salicylates 6.0 (<2.8) mg/dL Urine Opiates Screen Negative (Negative) Urine Methadone Screen Negative (Negative) Acetaminophen < 2 (10-30) ug/mL Ur Barbiturates Screen Negative (Negative) Ur Tricyclics Screen Positive A (Negative) Ur Amphetamines Screen Negative (Negative) U Benzodiazepines Scrn Negative (Negative) Urine Cocaine Screen Negative (Negative) Ur THC Screen Negative (Negative) Ethyl Alcohol < 3.0 (<10) mg/dL ABO/Rh Antibody Screen Crossmatch 12/13/24 12/13/24 12/13/24 Range/Units 05:30 03:00 01:25 WBC (4.4-10.8) 10^3/uL RBC (3.93-5.22) 10^6/uL Hgb 5.4 L* 5.6 L* (11.2-15.7) g/dL Hct 19.9 L* 20.6 L* (36.0-46.0) % MCV (80-95) fL MCH (27.0-33.0) pg MCHC (32.0-36.0) % RDW (11.7-14.6) % Plt Count (130-400) 10^3/uL MPV (8.0-11.0) fL Immature Gran % % Neutrophils % % Lymphocytes % % Monocytes % % Eosinophils % % Basophils % % Nucleated RBC % (0.0-0.3) % Absolute Neutrophils (1.2-6.7) 10^3/uL Absolute Lymphocytes (1.2-3.4) 10^3/uL Absolute Monocytes (0.1-0.8) 10^3/uL Absolute Eosinophils (0.0-0.7) 10^3/uL Absolute Basophils (0.0-0.2) 10^3/uL RBC Morphology Hypochromasia VBG pH 7.34 7.24 L (7.31-7.41) VBG pCO2 39 L 47 (41-51) mmHg VBG pO2 78 43 mmHg VBG HCO3 21 L 20 L (23-28) mmol/L VBG Total CO2 21 L 21 L (24-29) mmol/L VBG O2 Saturation 96 69 % VBG Base Excess -4 L -7 L (-2-3) mmol/L VBG Lactate 1.8 (<or=2.0) mmol/L Sodium 144 (136-145) mmol/L Potassium 4.1 (3.5-5.1) mmol/L Chloride 109 H (98-107) mmol/L Carbon Dioxide 22.8 (21.0-32.0) mmol/L Anion Gap 12.2 H (3-11) mmol/L BUN 22 H (7-18) mg/dL Creatinine 1.1 H (0.55-1.02) mg/dL Est GFR (CKD-EPI 2020) 58.97 (mL/min/1.73m2) Glucose 112 H (74-106) mg/dL Calcium 8.2 L (8.5-10.1) mg/dL Magnesium (1.8-2.4) mg/dL Total Bilirubin (0.2-1.0) mg/dL AST (15-37) U/L ALT (14-59) U/L Alkaline Phosphatase (46-116) U/L Total Protein (6.4-8.2) g/dL Albumin (3.4-5.0) g/dL Salicylates 6.1 (<2.8) mg/dL Urine Opiates Screen (Negative) Urine Methadone Screen (Negative) Acetaminophen < 2 (10-30) ug/mL Ur Barbiturates Screen (Negative) Ur Tricyclics Screen (Negative) Ur Amphetamines Screen (Negative) U Benzodiazepines Scrn (Negative) Urine Cocaine Screen (Negative) Ur THC Screen (Negative) Ethyl Alcohol (<10) mg/dL ABO/Rh A Positive Antibody Screen NEGATIVE Crossmatch See Detail 12/13/24 Range/Units 00:40 WBC 7.02 (4.4-10.8) 10^3/uL RBC 2.82 L (3.93-5.22) 10^6/uL Hgb 6.3 L* (11.2-15.7) g/dL Hct 23.3 L (36.0-46.0) % MCV 83 (80-95) fL MCH 22.3 L (27.0-33.0) pg MCHC 27.0 L (32.0-36.0) % RDW 20.0 H (11.7-14.6) % Plt Count (130-400) 10^3/uL MPV (8.0-11.0) fL Immature Gran % 1.0 % Neutrophils % 53.9 % Lymphocytes % 28.6 % Monocytes % 8.4 % Eosinophils % 7.0 % Basophils % 1.1 % Nucleated RBC % 0.0 (0.0-0.3) % Absolute Neutrophils 3.78 (1.2-6.7) 10^3/uL Absolute Lymphocytes 2.01 (1.2-3.4) 10^3/uL Absolute Monocytes 0.59 (0.1-0.8) 10^3/uL Absolute Eosinophils 0.49 (0.0-0.7) 10^3/uL Absolute Basophils 0.08 (0.0-0.2) 10^3/uL RBC Morphology See Below Hypochromasia 2+ VBG pH 7.29 L (7.31-7.41) VBG pCO2 44 (41-51) mmHg VBG pO2 54 mmHg VBG HCO3 21 L (23-28) mmol/L VBG Total CO2 21 L (24-29) mmol/L VBG O2 Saturation 83 % VBG Base Excess -6 L (-2-3) mmol/L VBG Lactate (<or=2.0) mmol/L Sodium 142 (136-145) mmol/L Potassium 3.9 (3.5-5.1) mmol/L Chloride 108 H (98-107) mmol/L Carbon Dioxide 21.6 (21.0-32.0) mmol/L Anion Gap 12.4 H (3-11) mmol/L BUN 21 H (7-18) mg/dL Creatinine 1.3 H (0.55-1.02) mg/dL Est GFR (CKD-EPI 2020) 48.26 (mL/min/1.73m2) Glucose 107 H (74-106) mg/dL Calcium 8.5 (8.5-10.1) mg/dL Magnesium 2.2 (1.8-2.4) mg/dL Total Bilirubin 0.2 (0.2-1.0) mg/dL AST 23 (15-37) U/L ALT 15 (14-59) U/L Alkaline Phosphatase 76 (46-116) U/L Total Protein 7.9 (6.4-8.2) g/dL Albumin 3.3 L (3.4-5.0) g/dL Salicylates (<2.8) mg/dL Urine Opiates Screen (Negative) Urine Methadone Screen (Negative) Acetaminophen (10-30) ug/mL Ur Barbiturates Screen (Negative) Ur Tricyclics Screen (Negative) Ur Amphetamines Screen (Negative) U Benzodiazepines Scrn (Negative) Urine Cocaine Screen (Negative) Ur THC Screen (Negative) Ethyl Alcohol 124.6 H (<10) mg/dL ABO/Rh Antibody Screen Crossmatch Intake and Output - 24 Hour Total 12/12/24 23:54 thru 12/13/24 09:51 Intake Total 2100 Balance 2100 Weight 77.111 kg Intake: IV 1000 Blood Product 1100 Rbc Leuko Reduced Unit 300 [id number] Rbc Leuko Reduced Unit 800 [id number] Falls Risk Assessment History of Falls No History 12/13/24 00:20 Contributing Factors Confusion,Unstable 12/13/24 00:20 Ambulatory Aids Independent 12/13/24 00:20 Tubes/Lines None 12/13/24 00:20 Gait Evaluation No gait disturbance 12/13/24 00:20 Cognition No cognitive impairment 12/13/24 00:20 Fall Total Score 6 12/13/24 00:20 Level of Risk Standard/Low Risk 12/13/24 00:20 v v v v v v v v v Sending and/or Receiving Nurses: Please use comment section below to note any information pertinent to the patient hand-off not included above. Information / Comments: Report received from: Took ETOH, sleeping pills, PD picked her up for intoxication, BP 90/50s, H&H 5.4/19.9, transfused with 2 units PRBCs, A/O x 4, 98.6F, 135/61,16 RR, 74 HR, 92% RA. Megan RN
[2024-12-13 14:19] LABS: HCT 26.1 % (36.0-46.0); MCH 24.1 pg (27.0-33.0); MCV 82 fL (80-95); MPV 9.7 fL (8.0-11.0); Platelet Count 423 10^3/uL (130-400); RBC 3.20 10^6/uL (3.93-5.22); RDW 18.6 % (11.7-14.6); RDW-SD 55.5 fL; WBC 6.97 10^3/uL (4.4-10.8)
[2024-12-13 14:22] LABS: HGB 7.7 g/dL (11.2-15.7); MCHC 29.5 % (32.0-36.0)
[2024-12-13] MEDS: Albuterol/Ipratropium 3 ML UPD VIAL UPD (20:28)
[2024-12-13] MEDS: Gabapentin 300 MG CAP PO (21:22)
[2024-12-13] MEDS: QUEtiapine 100 MG TAB 150 MG PO (21:22)
[2024-12-13] MEDS: Lisinopril 20 MG TAB PO (21:24)
[2024-12-13] MEDS: Topiramate 50 MG TAB PO (21:24)
[2024-12-13] MEDS: Pantoprazole 40 MG TABCR PO (21:25)
[2024-12-13] MEDS: traZODone 50 MG TAB 75 MG PO (21:25)
[2024-12-13] MEDS: Budesonide/Formoterol 160/4.5 6 GM 60 PUFF INH IH (22:25)
[2024-12-13] MEDS: Tiotropium Bromide-Respimat 10 PUFF INH 2 PUFF IH (22:27)
[2024-12-13] MEDS: Doxepin 25 MG CAP PO (22:33)
[2024-12-14 03:00] VITALS: BP 137/107; PULSE 73; RESP 16; TEMP 36.6; O2SAT 92
[2024-12-14 07:35] VITALS: BP 147/76; PULSE 81; RESP 16; TEMP 36.5; O2SAT 89
--- NOTE | 2024-12-14 08:17 | INITIAL_ITS ---
Date of service: 12/14/24 Time of Service: 08:18 Care Management Initial Assmt Initial Assessment Reason for Hospitalization: anemia Functional Status/Living Situation Patient Presentation: Adrianne presented to the ED early in the morning of 12/13 via EMS for ETOH intoxication and hypotension. Her BP was checked by the PD when Adrianne was found intoxicated, it was noted to by 90's/50's, so she was sent to the ED. Adrianne did c/o feeling lightheaded upon standing after drinking 3 shots that night. H/H were quite low on admission, and Adrianne received 2 units of PRBC with good improvement. No source of bleeding was identified. Surgery consulted and signed off. Adrianne was resting in bed when CM met with her earlier today. She stated that she did not feel well, and looked like she was not quite up to par. She was still pleasant, is known to this CM from other admissions. Adrianne has been staying with her daughter for the last few days, but is not welcome back there when she is discharged. She has been kicked out of the local [place] [facility]. She has called [employer], but she has used up all of her voucher days. She no longer has her car, and is unsure where she will be going when discharged from the hospital. Adrianne is well connected to resources in the community. Town of Residence: [facility] Resides with: Other (homeless and car-less) Significant Other/Family: Local (daughter) Natural Supports: Adrianne stated today to that she really has no one Employment Status: Unemployed Instrumental Activities of Daily Living (ADLs): Independent Medications Medication Management: No Issues/Barriers identified Advance Directives Advance Directives: Do you have an Advance Directive: N , 09:23 AD On File at [facility]: N 08/08/13, 09:23 Date Asked 12/13/24 12/13/24, 11:04 AD Date Reviewed COLST On File at [facility] No 08/24/24, 16:57 COLST Date Scanned Code Status Resuscitation Status Full Code Insurance Coverage/Financial Issues Insurance: Medicaid [place] Care Team Visit Care Team Role Provider Type Agustin Zurita MD Primary Care Provider NURSE PRACTITIONER Sadia Rodrigues MD Other Providers [facility] STAFF PHYSICIAN Slava Donald MD Emergency Provider [facility] STAFF PHYSICIAN Freedom Mccauley MD Admit Provider [facility] STAFF PHYSICIAN Attending Provider Discharge Potential Discharge Needs: PCP F/U Appt (Has f/u appointment on 12/17) Anticipated Barriers to Discharge: None Identified Patient/Family Education Needs: Review discharge instructions, discuss Ask Me Three Plan: Anticipate Adrianne will be discharged back to the [facility] when medically stable. She will follow up with her PCP on 12/17 at a previously scheduled appointment. She will transport via [facility] as coordinated by CM and continue per her plan of care. CM will follow and continue to support discharge planning efforts. Social Determinants of Health Screening Social Determinants of health last assessed in clinic: 12/14/24 Will the Patient Participate in the Screening?: Yes Do you worry about having a steady place to live?: yes What is your living situation today?: I do not have steady housing Problems where you live: other In the past 12 months, have you had to go without electric, gas, oil or water in your home?: yes 1. Within the past 12 months, we worried whether our food would run out before we got money to buy more.: Often true 2. Within the past 12 months, the food we bought just didn't last and we didn't have money to get more.: Often true Has lack of transportation kept you from medical appointments or from doing things needed for daily living?: yes Has anyone in your life made you feel unsafe or unsupported?: no How hard is it for you to pay for the very basics like food, housing, medical care, and heating? Would you say it is:: Very hard Do you want help finding or keeping work or a job?: Yes, help finding work If for any reason you need help with day-to-day activities such as bathing, preparing meals, shopping, managing finances, etc., do you get the help you need?: I don’t need any help How often do you feel lonely or isolated from those around you?: Often Do you speak a language other than Jordanian at home?: No Health Related Social Needs Health related social needs: inadequate housing (Z59.1), housing instability, housed, with risk of homelessness (Z59.811), food insecurity (Z59.41), transportation insecurity (Z59.82), material hardship(utilities) (Z59.12), problems related to housing/economic circumstances (Z59.89), problems finding work (Z56.9) and feeling lonely/isolated (Z60.8) Health related social needs details: homeless PFSH All Active Problems (Updated 12/13/24 @ 19:06 by Freedom Mccauley MD) Acute renal injury (Acute) Pancreatic pseudocyst (Acute) Meningioma (Acute) Altered mental status (Acute) Acidosis (Acute) Acute on chronic anemia (Acute) Alcohol intoxication (Acute) Alcohol dependence (Acute) COVID-19 virus infection (Acute) COVID (Acute) Alcohol intoxication (Acute) Alcohol use disorder in remission (Acute) Anemia (Chronic) Alcohol intoxication in active alcoholic (Acute) CKD (chronic kidney disease) (Chronic) Anemia (Chronic) Depression with anxiety (Chronic) Abdominal fluid collection (Acute) Dyslipidemia (Acute) Abdominal pain, chronic, left upper quadrant (Acute) Chronic upper gastrointestinal bleeding (Acute) Cyst and pseudocyst of pancreas (Acute) Anxiety (Chronic) DUB (dysfunctional uterine bleeding) (Acute) Impaired fasting blood sugar (Acute 08/01/05) Obesity, unspecified (Acute 05/31/11) Atypical squamous cells of undetermined significance (ASC-US) on cervical Pap smear (Acute 08/05/09) ASCUS 08/05/09; 05/31/2011 Spinal stenosis of lumbar region (Acute 01/11/10) LS spine surg; Dr Sebastian Walker Tobacco dependence (Acute 08/01/05) Medical History Pulmonary embolus Helicobacter pylori (H. pylori) Chronic pain (02/20/09) chronic tramadol rx, back pain, sciatica despite LS surg 2009. Depression (04/03/15) Sertaline in the past with good relief of sx but then developed intolerable adverse rxns (nausea, flushing) Started on venlafaxine 03/2015 PHQ9 score = 9, indicating mild depression 03/2015 Anemia COPD (chronic obstructive pulmonary disease) HTN (hypertension), benign Spinal stenosis Lumbar region Surgical History History of esophagogastroduodenoscopy (EGD) (~08/05/24) w bx. per report-negative for H.Pylori Internal injury, spleen, closed with IR embolization Back surgery L5-S1 decompression 2009 Family History Mother , lung cancer at age 50. No problems noted. Father , MVA No problems noted. Other Lung cancer Social History Smoking/Tobacco Use Status: Current every day Tobacco Type: cigarettes Smoking risk assessment performed?: Yes Alcohol Intake: current Alcohol Intake frequency: 3 or more drinks per day Alcohol type: beer and hard liquor Drug use: Never Substance use type: does not use Details: last drink about 3 weeks ago. 10/13/24 Housing: homeless Do you feel safe at home: Yes Do you feel safe in your relationship?: Yes
[2024-12-14] MEDS: Budesonide/Formoterol 160/4.5 6 GM 60 PUFF INH IH ×2 (08:20→19:57)
[2024-12-14] MEDS: Tiotropium Bromide-Respimat 10 PUFF INH 2 PUFF IH ×2 (08:20→19:57)
[2024-12-14] MEDS: Gabapentin 300 MG CAP PO ×2 (09:15→20:33)
[2024-12-14] MEDS: Naltrexone 50 MG TAB PO (09:15)
[2024-12-14] MEDS: Thiamine 100 MG TAB PO (09:15)
[2024-12-14] MEDS: Citalopram 20 MG TAB 40 MG PO (09:15)
[2024-12-14] MEDS: Doxepin 25 MG CAP PO ×2 (09:15→20:33)
[2024-12-14] MEDS: Pantoprazole 40 MG TABCR PO ×2 (09:15→20:33)
[2024-12-14] MEDS: Acetaminophen 500 MG TAB 1000 MG PO ×2 (09:51→20:33)
[2024-12-14] MEDS: traMADol 50 MG TAB PO (09:51)
[2024-12-14 11:17] VITALS: BP 136/64; PULSE 76; RESP 17; TEMP 36.9; O2SAT 93
[2024-12-14 12:19] LABS: Abs Immature Grans 0.03 10^3/uL (0.0-0.06); HCT 25.9 % (36.0-46.0); HGB 7.8 g/dL (11.2-15.7); Immature Grans % 0.3 %; MCH 24.2 pg (27.0-33.0); MCHC 30.1 % (32.0-36.0); MCV 80 fL (80-95); MPV 9.9 fL (8.0-11.0); Platelet Count 392 10^3/uL (130-400); RBC 3.22 10^6/uL (3.93-5.22); RDW 18.9 % (11.7-14.6); RDW-SD 55.6 fL; WBC 10.90 10^3/uL (4.4-10.8)
[2024-12-14 12:38] LABS: ALT 13 U/L (14-59); AST 11 U/L (15-37); Albumin 2.8 g/dL (3.4-5.0); Alkaline Phosphatase 69 U/L (46-116); Anion Gap 7.7 mmol/L (3-11); BUN 19 mg/dL (7-18); Bilirubin, Total 0.4 mg/dL (0.2-1.0); CO2 25.3 mmol/L (21.0-32.0); Calcium 8.7 mg/dL (8.5-10.1); Chloride 106 mmol/L (98-107); Glucose 115 mg/dL (74-106); Magnesium 2.0 mg/dL (1.8-2.4); Potassium 4.0 mmol/L (3.5-5.1); Sodium 139 mmol/L (136-145); Total Protein 6.8 g/dL (6.4-8.2)
[2024-12-14 12:54] LABS: Anisocytosis 1+; Hypochromasia 2+; Polychromasia Present
[2024-12-14 15:18] VITALS: BP 157/59; PULSE 85; RESP 17; TEMP 37.1; O2SAT 94
--- NOTE | 2024-12-14 16:03 | PGE_ITS ---
Date of Service Date of service: 12/14/24 Time of Service: 16:00 Assessment and Plan Assessment and plan (1) Acute on chronic anemia: Status: Acute Assessment and plan: Hemoglobin in the 5's in the ED, 6's on arrival PRBC 2u transfusing Repeat H&H 7.7 / 26.1 Appreciate general surgery recommendations, no intervention at this time Likely acute on chronic blood loss, will monitor Dec 14: post-transfusion hgb 7.7, morning hgb 7.8. No need for additional transfusion today. Will continue to monitor. (2) Chronic upper gastrointestinal bleeding: Status: Chronic Assessment and plan: No hematemesis Multiple endoscopies without findings, no varices H pylori negative per biopsy Will discontinue NPO and monitor (3) Acute renal injury: Status: Resolved Assessment and plan: Likely ASIA, likely secondary to dehydration Continue fluid resuscitation, follow labs Dec 14: ASIA resolved (4) Depression with anxiety: Status: Chronic Assessment and plan: Continue quetiapine, topiramate, trazodone (5) Alcohol dependence: Status: Acute Assessment and plan: BAL fell from 120's to zero in the ED No CIWA at this time Subjective Subjective Interval history since last seen: Ms. Bailon is comfortable in bed. She feels a bit better today. She is concerned about where she is going to go when she gets out of the hospital, as she has no options at this time. Exam Narrative Exam Narrative: General: This is a somnolent woman in no distress HEENT: Normocephalic, atraumatic CV: RRR Resp: CTAB Abd: soft, NTND MSK: voluntary motion x4 Neuro: awake, alert, no focal deficits Objective Last Vital Signs Temp 37.1 C 12/14/24 15:18 Pulse 85 12/14/24 15:18 Resp 17 12/14/24 15:18 BP 157/59 H 12/14/24 15:18 Pulse Ox 94 12/14/24 15:18 Laboratory Results - last 24 hr 12/14/24 11:50 WBC 10.90 H RBC 3.22 L Hgb 7.8 L Hct 25.9 L MCV 80 MCH 24.2 L MCHC 30.1 L RDW 18.9 H Plt Count 392 MPV 9.9 Immature Gran % 0.3 Neutrophils % 79.5 Lymphocytes % 9.5 Monocytes % 8.0 Eosinophils % 2.0 Basophils % 0.7 Nucleated RBC % 0.0 Absolute Neutrophils 8.67 H Absolute Lymphocytes 1.04 L Absolute Monocytes 0.87 H Absolute Eosinophils 0.22 Absolute Basophils 0.08 RBC Morphology See Below Polychromasia Present Hypochromasia 2+ Anisocytosis 1+ Sodium 139 Potassium 4.0 Chloride 106 Carbon Dioxide 25.3 Anion Gap 7.7 BUN 19 H Creatinine 0.9 Est GFR (CKD-EPI 2020) 75.03 Glucose 115 H Calcium 8.7 Magnesium 2.0 Total Bilirubin 0.4 AST 11 L ALT 13 L Alkaline Phosphatase 69 Total Protein 6.8 Albumin 2.8 L PAWSS Have you Been Recently Intoxicated or Drunk Within the Last 30 days?: Yes Have you Ever Experienced Previous Episodes of Alcohol Withdrawal?: Yes Have you ever Experienced Withdrawal Seizures?: No Have you ever Experienced Delirium Tremens(DT)s?: No Have you ever undergone Alcohol Rehabilitation Treatment (i.e, inpt ot outpatient treatment programs)?: Yes Have you ever Experienced Blackouts?: Yes Have you ever Combined Alcohol with other Downers within the last 90 days?: Yes Have you ever Combined Alcohol with any other Substance of Abuse during the last 90 days?: Yes Positive Blood Alcohol level on Presentation? [PCS.BAL]: No Evidence of Increased Autonomic Activity (i.e. HR>120, tremor, sweating, agitation, nausea)?: No Result: 6 Time Spent with Patient Time Spent with Patient: 25-34 minutes Time was spent: preparing to see the patient(eg.review tests), obtaining and/or reviewing separately otained hiistory, ordering medications,tests, procedures, referring, communicating with other health career development coordinator, indepentently interpreting results, counseling the patient and care coordination
[2024-12-14 20:02] VITALS: BP 149/78; PULSE 95; RESP 18; TEMP 38.2; O2SAT 92
[2024-12-14] MEDS: Topiramate 50 MG TAB PO (20:32)
[2024-12-14] MEDS: Sennosides/Docusate Sodium TAB 1 TAB PO (20:34)
[2024-12-14] MEDS: Lisinopril 20 MG TAB PO (20:34)
[2024-12-14] MEDS: QUEtiapine 100 MG TAB 150 MG PO (20:34)
[2024-12-14] MEDS: Normal Saline Flush 10 ML SYR IVP (20:35)
[2024-12-14] MEDS: traZODone 50 MG TAB 75 MG PO (20:35)
[2024-12-15 03:15] VITALS: BP 141/83; PULSE 77; RESP 16; TEMP 36.7; O2SAT 93
[2024-12-15 06:36] LABS: Abs Immature Grans 0.08 10^3/uL (0.0-0.06); Immature Grans % 0.6 %; MCH 24.7 pg (27.0-33.0); MCHC 30.6 % (32.0-36.0); MCV 81 fL (80-95); MPV 9.9 fL (8.0-11.0); Platelet Count 443 10^3/uL (130-400); RBC 2.31 10^6/uL (3.93-5.22); RDW 20.0 % (11.7-14.6); RDW-SD 58.7 fL; WBC 12.96 10^3/uL (4.4-10.8)
[2024-12-15 06:40] LABS: HCT 18.6 % (36.0-46.0); HGB 5.7 g/dL (11.2-15.7)
[2024-12-15 06:59] LABS: ALT 10 U/L (14-59); AST 10 U/L (15-37); Albumin 2.8 g/dL (3.4-5.0); Alkaline Phosphatase 70 U/L (46-116); Anion Gap 6.1 mmol/L (3-11); BUN 15 mg/dL (7-18); Bilirubin, Total 0.4 mg/dL (0.2-1.0); CO2 25.9 mmol/L (21.0-32.0); Calcium 8.5 mg/dL (8.5-10.1); Chloride 105 mmol/L (98-107); Glucose 99 mg/dL (74-106); Magnesium 1.9 mg/dL (1.8-2.4); Potassium 3.6 mmol/L (3.5-5.1); Sodium 137 mmol/L (136-145); Total Protein 7.1 g/dL (6.4-8.2)
[2024-12-15] MEDS: Normal Saline Flush 10 ML SYR IVP ×3 (08:02→16:26)
[2024-12-15] MEDS: Tiotropium Bromide-Respimat 10 PUFF INH 2 PUFF IH ×2 (08:08→19:34)
[2024-12-15] MEDS: Budesonide/Formoterol 160/4.5 6 GM 60 PUFF INH IH ×2 (08:08→19:34)
[2024-12-15] MEDS: Sennosides/Docusate Sodium TAB 1 TAB PO ×2 (08:29→20:29)
[2024-12-15] MEDS: Pantoprazole 40 MG TABCR PO ×2 (08:29→20:30)
[2024-12-15] MEDS: Naltrexone 50 MG TAB PO (08:29)
[2024-12-15] MEDS: Citalopram 20 MG TAB 40 MG PO (08:29)
[2024-12-15] MEDS: Thiamine 100 MG TAB PO (08:29)
[2024-12-15] MEDS: Gabapentin 300 MG CAP PO ×2 (08:29→20:29)
[2024-12-15] MEDS: Doxepin 25 MG CAP PO ×2 (08:29→20:30)
[2024-12-15 09:26] LABS: HCT 25.7 % (36.0-46.0); HGB 7.7 g/dL (11.2-15.7)
[2024-12-15 10:28] VITALS: BP 135/84; PULSE 89; RESP 16; TEMP 36.8; O2SAT 96
--- NOTE | 2024-12-15 13:52 | PGE_ITS ---
Date of Service Date of service: 12/15/24 Time of Service: 09:00 Assessment and Plan Assessment and plan (1) Acute on chronic anemia: Status: Acute Assessment and plan: Hemoglobin in the 5's in the ED, 6's on arrival PRBC 2u transfusing Repeat H&H 7.7 .1 Appreciate general surgery recommendations, no intervention at this time Likely acute on chronic blood loss, will monitor Dec 14: post-transfusion hgb 7.7, morning hgb 7.8. No need for additional transfusion today. Will continue to monitor. Dec 15: falsely low hemoglobin. Awaiting stool guiac. (2) Chronic upper gastrointestinal bleeding: Status: Chronic Assessment and plan: No hematemesis Multiple endoscopies without findings, no varices H pylori negative per biopsy Will discontinue NPO and monitor (3) Acute renal injury: Status: Resolved Assessment and plan: Likely ASIA, likely secondary to dehydration Continue fluid resuscitation, follow labs Dec 14: ASIA resolved (4) Depression with anxiety: Status: Chronic Assessment and plan: Continue quetiapine, topiramate, trazodone (5) Alcohol dependence: Status: Acute Assessment and plan: BAL fell from 120's to zero in the ED No CIWA at this time Subjective Subjective Interval history since last seen: Mrs. Bailon is comfortable in bed. Falsely low hemoglobin this morning, no transfusion needed. She found a tick since admission, tick/Lyme panel has been sent. No other new complaints. Exam Narrative Exam Narrative: General: This is a pleasant woman in no distress HEENT: Normocephalic, atraumatic CV: RRR Resp: CTAB Abd: soft, NTND MSK: voluntary motion x4 Neuro: awake, alert, no focal deficits Objective Last Vital Signs Temp 36.8 C 12/15/24 10:28 Pulse 89 12/15/24 10:28 Resp 16 12/15/24 10:28 BP 135/84 12/15/24 10:28 Pulse Ox 96 12/15/24 10:28 Laboratory Results - last 24 hr 12/15/24 12/15/24 12/15/24 04:41 06:20 07:00 WBC 12.96 H RBC 2.31 L Hgb 5.7 L* D Hct 18.6 L* MCV 81 MCH 24.7 L MCHC 30.6 L RDW 20.0 H Plt Count 443 H MPV 9.9 Immature Gran % 0.6 Neutrophils % 73.1 Lymphocytes % 12.9 Monocytes % 10.6 Eosinophils % 2.6 Basophils % 0.2 Nucleated RBC % 0.0 Absolute Neutrophils 9.47 H Absolute Lymphocytes 1.67 Absolute Monocytes 1.37 H Absolute Eosinophils 0.34 Absolute Basophils 0.03 Sodium 137 Potassium 3.6 Chloride 105 Carbon Dioxide 25.9 Anion Gap 6.1 BUN 15 Creatinine 0.9 Est GFR (CKD-EPI 2020) 75.03 Glucose 99 Calcium 8.5 Magnesium 1.9 Total Bilirubin 0.4 AST 10 L ALT 10 L Alkaline Phosphatase 70 Total Protein 7.1 Albumin 2.8 L B. divergens/MO-1 PCR Cancelled Babesia duncani (PCR) Cancelled Babesia microti DNA PCR Cancelled E.chaffeensis DNA (PCR) Cancelled E.ewingii/canis DNA PCR Cancelled E.muris eauclairensis (PCR) Cancelled A. phagocytophilum (PCR) Cancelled Blood B. miyamotoi (PCR) Cancelled ABO/Rh A Positive Antibody Screen NEGATIVE Crossmatch See Detail 12/15/24 07:20 WBC RBC Hgb 7.7 L D Hct 25.7 L MCV MCH MCHC RDW Plt Count MPV Immature Gran % Neutrophils % Lymphocytes % Monocytes % Eosinophils % Basophils % Nucleated RBC % Absolute Neutrophils Absolute Lymphocytes Absolute Monocytes Absolute Eosinophils Absolute Basophils Sodium Potassium Chloride Carbon Dioxide Anion Gap BUN Creatinine Est GFR (CKD-EPI 2020) Glucose Calcium Magnesium Total Bilirubin AST ALT Alkaline Phosphatase Total Protein Albumin B. divergens/MO-1 PCR Babesia duncani (PCR) Babesia microti DNA PCR E.chaffeensis DNA (PCR) E.ewingii/canis DNA PCR E.muris eauclairensis (PCR) A. phagocytophilum (PCR) Blood B. miyamotoi (PCR) ABO/Rh Antibody Screen Crossmatch PAWSS Have you Been Recently Intoxicated or Drunk Within the Last 30 days?: Yes Have you Ever Experienced Previous Episodes of Alcohol Withdrawal?: Yes Have you ever Experienced Withdrawal Seizures?: No Have you ever Experienced Delirium Tremens(DT)s?: No Have you ever undergone Alcohol Rehabilitation Treatment (i.e, inpt ot outpatient treatment programs)?: Yes Have you ever Experienced Blackouts?: Yes Have you ever Combined Alcohol with other Downers within the last 90 days?: Yes Have you ever Combined Alcohol with any other Substance of Abuse during the last 90 days?: Yes Positive Blood Alcohol level on Presentation? [PCS.BAL]: No Evidence of Increased Autonomic Activity (i.e. HR>120, tremor, sweating, agitation, nausea)?: No Result: 6 Time Spent with Patient Time Spent with Patient: 25-34 minutes Time was spent: preparing to see the patient(eg.review tests), obtaining and/or reviewing separately otained hiistory, ordering medications,tests, procedures, referring, communicating with other health critical care registered nurse, indepentently interpreting results, counseling the patient and care coordination
[2024-12-15 15:20] VITALS: BP 165/103; PULSE 81; RESP 17; TEMP 36.9; O2SAT 95
[2024-12-15] MEDS: traZODone 50 MG TAB 75 MG PO (20:29)
[2024-12-15] MEDS: QUEtiapine 100 MG TAB 150 MG PO (20:29)
[2024-12-15] MEDS: traMADol 50 MG TAB PO (20:29)
[2024-12-15] MEDS: hydrOXYzine HCL 25 MG TAB PO (20:29)
[2024-12-15] MEDS: Lisinopril 20 MG TAB PO (20:30)
[2024-12-15] MEDS: Topiramate 50 MG TAB PO (20:31)
[2024-12-15 20:57] VITALS: BP 146/79; PULSE 78; RESP 17; TEMP 37; O2SAT 92
[2024-12-16 06:38] LABS: Abs Immature Grans 0.04 10^3/uL (0.0-0.06); HCT 28.3 % (36.0-46.0); HGB 8.3 g/dL (11.2-15.7); Immature Grans % 0.5 %; MCH 23.8 pg (27.0-33.0); MCHC 29.3 % (32.0-36.0); MCV 81 fL (80-95); MPV 10.2 fL (8.0-11.0); Platelet Count 382 10^3/uL (130-400); RBC 3.49 10^6/uL (3.93-5.22); RDW 20.3 % (11.7-14.6); RDW-SD 59.6 fL; WBC 8.19 10^3/uL (4.4-10.8)
[2024-12-16 07:04] LABS: ALT 13 U/L (14-59); AST 8 U/L (15-37); Albumin 2.9 g/dL (3.4-5.0); Alkaline Phosphatase 65 U/L (46-116); Anion Gap 11.1 mmol/L (3-11); BUN 20 mg/dL (7-18); Bilirubin, Total 0.3 mg/dL (0.2-1.0); CO2 23.9 mmol/L (21.0-32.0); Calcium 8.9 mg/dL (8.5-10.1); Chloride 105 mmol/L (98-107); Glucose 117 mg/dL (74-106); Potassium 4.2 mmol/L (3.5-5.1); Sodium 140 mmol/L (136-145); Total Protein 7.6 g/dL (6.4-8.2)
[2024-12-16 07:35] VITALS: BP 138/83; PULSE 77; RESP 16; TEMP 36.7; O2SAT 94
[2024-12-16] MEDS: Tiotropium Bromide-Respimat 10 PUFF INH 2 PUFF IH ×2 (08:05→19:54)
[2024-12-16 08:06] VITALS: O2SAT 94
[2024-12-16] MEDS: Budesonide/Formoterol 160/4.5 6 GM 60 PUFF INH IH ×2 (08:06→19:53)
[2024-12-16] MEDS: Sennosides/Docusate Sodium TAB 1 TAB PO ×2 (08:53→20:34)
[2024-12-16] MEDS: Gabapentin 300 MG CAP PO ×2 (08:53→20:34)
[2024-12-16] MEDS: Pantoprazole 40 MG TABCR PO ×2 (08:54→20:35)
[2024-12-16] MEDS: Naltrexone 50 MG TAB PO (08:54)
[2024-12-16] MEDS: Doxepin 25 MG CAP PO ×2 (08:54→20:35)
[2024-12-16] MEDS: Citalopram 20 MG TAB 40 MG PO (08:54)
[2024-12-16] MEDS: Thiamine 100 MG TAB PO (08:57)
[2024-12-16] MEDS: Acetaminophen 500 MG TAB 1000 MG PO (09:11)
[2024-12-16 11:26] LABS: Lyme Ab w Rflx to Lyme Confirm Negative (Negative)
[2024-12-16 11:46] VITALS: BP 124/79; PULSE 80; RESP 16; TEMP 36.6; O2SAT 94
[2024-12-16] MEDS: traMADol 50 MG TAB PO ×2 (11:54→20:34)
--- NOTE | 2024-12-16 12:45 | RT.EKG_ITS ---
APPROVED REPORT Exam: Resting ECG Reason for Exam: shooting pain into the neck Patient Location: I HR:79 bpm ECG Measurements Heart Rate 79 AXIS KS 134 P 4 QRSd 95 QRS 59 QT 415 T 47 QTc 476 Conclusion Sinus rhythm...normal P axis, V-rate 50- 99 Normal Electrocardiogram
[2024-12-16 13:43] LABS: Troponin I 9 ng/L (<or=51)
--- NOTE | 2024-12-16 13:52 | PGE_ITS ---
Date of Service Date of service: 12/16/24 Time of Service: 08:00 Assessment and Plan Assessment and plan (1) Left facial pain: Status: Acute Assessment and plan: Concern for neurological presentation of tick-borne disease, given facial pain and meningioma and recent tick bite Ordered doxycycline prophylactic dose Troponin negative, EKG unremarkable Fiorecet for pain (2) Acute on chronic anemia: Status: Resolved Assessment and plan: Hemoglobin in the 5's in the ED, 6's on arrival PRBC 2u transfusing Repeat H&H 7.7 / 26.1 Appreciate general surgery recommendations, no intervention at this time Likely acute on chronic blood loss, will monitor Dec 14: post-transfusion hgb 7.7, morning hgb 7.8. No need for additional transfusion today. Will continue to monitor. Dec 15: falsely low hemoglobin. Awaiting stool guiac. (3) Chronic upper gastrointestinal bleeding: Status: Chronic Assessment and plan: No hematemesis Multiple endoscopies without findings, no varices H pylori negative per biopsy Will discontinue NPO and monitor (4) Acute renal injury: Status: Resolved Assessment and plan: Likely ASIA, likely secondary to dehydration Continue fluid resuscitation, follow labs Dec 14: ASIA resolved (5) Depression with anxiety: Status: Chronic Assessment and plan: Continue quetiapine, topiramate, trazodone (6) Alcohol dependence: Status: Acute Assessment and plan: BAL fell from 120's to zero in the ED No CIWA at this time Subjective Subjective Interval history since last seen: Ms. Bailon is comfortable in bed. She has pain on the left side of her face that radiates into her neck, and she feels that the lymph nodes on the left side of her neck are large and firm. Discussed stable meningioma seen on multiple CT head exams since August. Exam Narrative Exam Narrative: General: This is a pleasant woman in no distress HEENT: Normocephalic, atraumatic CV: RRR Resp: CTAB Abd: soft, NTND MSK: voluntary motion x4 Neuro: awake, alert, no focal deficits Objective Last Vital Signs Temp 36.6 C 12/16/24 11:46 Pulse 80 12/16/24 11:46 Resp 16 12/16/24 11:46 BP 124/79 12/16/24 11:46 Pulse Ox 94 12/16/24 11:46 Laboratory Results - last 24 hr 12/16/24 12/16/24 06:22 13:09 WBC 8.19 RBC 3.49 L Hgb 8.3 L Hct 28.3 L MCV 81 MCH 23.8 L MCHC 29.3 L RDW 20.3 H Plt Count 382 MPV 10.2 Immature Gran % 0.5 Neutrophils % 66.8 Lymphocytes % 17.8 Monocytes % 9.2 Eosinophils % 4.8 Basophils % 0.9 Nucleated RBC % 0.0 Absolute Neutrophils 5.48 Absolute Lymphocytes 1.46 Absolute Monocytes 0.75 Absolute Eosinophils 0.39 Absolute Basophils 0.07 Sodium 140 Potassium 4.2 Chloride 105 Carbon Dioxide 23.9 Anion Gap 11.1 H BUN 20 H Creatinine 1.1 H Est GFR (CKD-EPI 2020) 58.97 Glucose 117 H Calcium 8.9 Total Bilirubin 0.3 AST 8 L ALT 13 L Alkaline Phosphatase 65 Troponin I 9 Total Protein 7.6 Albumin 2.9 L PAWSS Have you Been Recently Intoxicated or Drunk Within the Last 30 days?: Yes Have you Ever Experienced Previous Episodes of Alcohol Withdrawal?: Yes Have you ever Experienced Withdrawal Seizures?: No Have you ever Experienced Delirium Tremens(DT)s?: No Have you ever undergone Alcohol Rehabilitation Treatment (i.e, inpt ot outpatient treatment programs)?: Yes Have you ever Experienced Blackouts?: Yes Have you ever Combined Alcohol with other Downers within the last 90 days?: Yes Have you ever Combined Alcohol with any other Substance of Abuse during the last 90 days?: Yes Positive Blood Alcohol level on Presentation? [PCS.BAL]: No Evidence of Increased Autonomic Activity (i.e. HR>120, tremor, sweating, agitation, nausea)?: No Result: 6 Time Spent with Patient Time Spent with Patient: 25-34 minutes Time was spent: preparing to see the patient(eg.review tests), obtaining and/or reviewing separately otained hiistory, ordering medications,tests, procedures, referring, communicating with other health acute care assistant, indepentently interpreting results, counseling the patient and care coordination
[2024-12-16] MEDS: Butalbital/Acetaminophen/Caffeine 50/325/40 TAB PO (14:02)
[2024-12-16] MEDS: Doxycycline Hyclate 100 MG CAP 200 MG PO (14:03)
[2024-12-16 15:56] VITALS: BP 126/86; PULSE 77; RESP 16; TEMP 36.7; O2SAT 94
--- NOTE | 2024-12-16 17:16 | CMPROGNOTE_ITS ---
Date of service: 12/16/24 Time of Service: 17:16 Care Management Progress Note Progress Note Text Progress Note Text: Adrianne was sitting up on the edge of the bed when CM met with her this morning. She was very pleasant with CM, but did c/o of a left sided headache with some jaw pain. This was reported to her provider who ordered troponin levels and an EKG. As of the time of this writing, EKG has yet to be read and trops were negative (6). Adrianne was supposed to see her PCP at 10am tomorrow. That appoinment has been cancelled. dental treatment coordinator at her PCP office was going to try to reschedule her, but CM has not heard back. Adrianne does not have a place to discharge to. Her car is at her friends house, and she is unsure if that friend will pick her up or not. She can not stay with that friend, they are in a [place] camp. She can no longer stay with her daug hter. Adrianne had mentioned her sister in [facility]. She is not welcomed by her sister's . The local [place] [facility] is not an option for her any more. Discharge Potential Discharge Needs: PCP F/U Appt Anticipated Barriers to Discharge: None Identified Patient/Family Education Needs: Review discharge instructions, discuss Ask Me Three Transportation: Private vehicle (vs RCT) Plan: Adrianne will be discharged from [facility] once medically stable. She will f/u with her PCP and continue per her plan of care. CM will continue to follow. Social Determinants of Health Screening Social Determinants of health last assessed in clinic: 12/16/24 Will the Patient Participate in the Screening?: Yes Do you worry about having a steady place to live?: yes What is your living situation today?: I do not have steady housing Problems where you live: other In the past 12 months, have you had to go without electric, gas, oil or water in your home?: yes 1. Within the past 12 months, we worried whether our food would run out before we got money to buy more.: Don't know/refused 2. Within the past 12 months, the food we bought just didn't last and we didn't have money to get more.: Don't know/refused Has lack of transportation kept you from medical appointments or from doing things needed for daily living?: yes Has anyone in your life made you feel unsafe or unsupported?: no How hard is it for you to pay for the very basics like food, housing, medical care, and heating? Would you say it is:: Very hard Do you want help finding or keeping work or a job?: Yes, help finding work If for any reason you need help with day-to-day activities such as bathing, preparing meals, shopping, managing finances, etc., do you get the help you need?: I don’t need any help How often do you feel lonely or isolated from those around you?: Often Do you speak a language other than [place] at home?: No Health Related Social Needs Health related social needs: inadequate housing (Z59.1), housing instability, housed, with risk of homelessness (Z59.811), transportation insecurity (Z59.82), material hardship(utilities) (Z59.12), problems related to housing/economic circumstances (Z59.89), problems finding work (Z56.9) and feeling lonely/isolated (Z60.8) Health related social needs details: homeless
[2024-12-16 19:40] VITALS: BP 128/72; PULSE 81; RESP 18; TEMP 37; O2SAT 92
[2024-12-16] MEDS: traZODone 50 MG TAB 75 MG PO (20:34)
[2024-12-16] MEDS: QUEtiapine 100 MG TAB 150 MG PO (20:34)
[2024-12-16] MEDS: Lisinopril 20 MG TAB PO (20:35)
[2024-12-16] MEDS: Topiramate 50 MG TAB PO (20:35)
[2024-12-16] MEDS: hydrOXYzine HCL 25 MG TAB PO (20:35)
[2024-12-17 03:45] VITALS: BP 149/85; PULSE 95; RESP 20; TEMP 35.9; O2SAT 95
[2024-12-17 06:45] LABS: Abs Immature Grans 0.06 10^3/uL (0.0-0.06); HCT 29.2 % (36.0-46.0); HGB 8.3 g/dL (11.2-15.7); Immature Grans % 0.8 %; MCH 23.2 pg (27.0-33.0); MCHC 28.4 % (32.0-36.0); MCV 82 fL (80-95); MPV 10.2 fL (8.0-11.0); Platelet Count 401 10^3/uL (130-400); RBC 3.58 10^6/uL (3.93-5.22); RDW 20.8 % (11.7-14.6); RDW-SD 61.0 fL; WBC 7.94 10^3/uL (4.4-10.8)
[2024-12-17 07:42] VITALS: BP 143/78; PULSE 76; RESP 16; TEMP 35.8; O2SAT 94
[2024-12-17] MEDS: Citalopram 20 MG TAB 40 MG PO (08:22)
[2024-12-17] MEDS: Thiamine 100 MG TAB PO (08:23)
[2024-12-17] MEDS: Pantoprazole 40 MG TABCR PO (08:23)
[2024-12-17] MEDS: Gabapentin 300 MG CAP PO (08:23)
[2024-12-17] MEDS: Doxepin 25 MG CAP PO (08:24)
[2024-12-17] MEDS: Sennosides/Docusate Sodium TAB 1 TAB PO (08:24)
[2024-12-17] MEDS: Naltrexone 50 MG TAB PO (08:24)
[2024-12-17] MEDS: traMADol 50 MG TAB PO ×2 (08:30→14:22)
[2024-12-17] MEDS: Budesonide/Formoterol 160/4.5 6 GM 60 PUFF INH IH (08:35)
[2024-12-17] MEDS: Tiotropium Bromide-Respimat 10 PUFF INH 2 PUFF IH (08:35)
[2024-12-17 08:48] VITALS: O2SAT 95
--- NOTE | 2024-12-17 09:14 | PDOC.CMPRO ---
Date of service: 12/17/24 Time of Service: 09:14 Care Management Progress Note Discharge Potential Discharge Needs: PCP F/U Appt Anticipated Barriers to Discharge: None Identified Patient/Family Education Needs: Review discharge instructions, discuss Ask Me Three Transportation: Private vehicle Plan: Adrianne will be discharged from [facility] once medically stable. She will f/u with her PCP and continue per her plan of care. CM will continue to follow. Social Determinants of Health Screening Social Determinants of health last assessed in clinic: 12/16/24 Will the Patient Participate in the Screening?: Yes Do you worry about having a steady place to live?: yes What is your living situation today?: I do not have steady housing Problems where you live: other In the past 12 months, have you had to go without electric, gas, oil or water in your home?: yes Has lack of transportation kept you from medical appointments or from doing things needed for daily living?: yes Has anyone in your life made you feel unsafe or unsupported?: no How hard is it for you to pay for the very basics like food, housing, medical care, and heating? Would you say it is:: Very hard Do you want help finding or keeping work or a job?: Yes, help finding work If for any reason you need help with day-to-day activities such as bathing, preparing meals, shopping, managing finances, etc., do you get the help you need?: I don’t need any help How often do you feel lonely or isolated from those around you?: Often Do you speak a language other than [place] at home?: No Health Related Social Needs Health related social needs: inadequate housing (Z59.1), housing instability, housed, with risk of homelessness (Z59.811), transportation insecurity (Z59.82), material hardship(utilities) (Z59.12), problems related to housing/economic circumstances (Z59.89), problems finding work (Z56.9) and feeling lonely/isolated (Z60.8) Health related social needs details: homeless
--- NOTE | 2024-12-17 10:24 | DSE_ITS ---
Date of service: 12/17/24 Time of Service: 09:00 DS: Diagnosis Discharge Diagnosis (1) Left facial pain: Status: Resolved Asessment and Plan: Concern for neurological presentation of tick-borne disease, given facial pain and meningioma and recent tick bite Ordered doxycycline prophylactic dose Troponin negative, EKG unremarkable Fiorecet for pain Dec 17 resolved (2) Acute on chronic anemia: Status: Resolved Asessment and Plan: Hemoglobin in the 5's in the ED, 6's on arrival PRBC 2u transfusing Repeat H&H 7.7 / 26.1 Appreciate general surgery recommendations, no intervention at this time Likely acute on chronic blood loss, will monitor Dec 14: post-transfusion hgb 7.7, morning hgb 7.8. No need for additional transfusion today. Will continue to monitor. Dec 15: falsely low hemoglobin. Dec 17: stool occult blood negative. Recommend continuing to see PCP for monitoring (3) Chronic upper gastrointestinal bleeding: Status: Chronic Asessment and Plan: No hematemesis Multiple endoscopies without findings, no varices H pylori negative per biopsy Tolerating diet, no bleeding (4) Acute renal injury: Status: Resolved Asessment and Plan: Likely ASIA, likely secondary to dehydration Continue fluid resuscitation, follow labs Dec 14: ASIA resolved (5) Depression with anxiety: Status: Chronic Asessment and Plan: Continue quetiapine, topiramate, trazodone (6) Alcohol dependence: Status: Acute Asessment and Plan: BAL fell from 120's to zero in the ED No CIWA at this time Discharge Plan Disposition Patient Disposition: Home Condition: Fair Discharge Details Reason For Visit: EtOH GIB Admit Date/Time: 12/13/24 07:54 Admit Provider: Freedom Mccauley Attending Provider: Freedom Mccauley Primary Care Provider: Trev Rankin Recommendations for Follow Up Recommended tests to be ordered by follow up provider: Pratima Bailon is a 54 year old woman presenting late December 12 with EtOH intoxication and hypotension. She was found to be severely anemic requiring blood transfusion. Her hemoglobin stayed steady in the high 7's after transfusion. As she has had multiple uneventful workups for source of blood loss, including multiple EGDs, additional diagnostic workup was deferred. She has had some success cutting down on her EtOH intake, which is critical for her overall health and chronic blood loss. She had a recent tick bite and has tests for arthropod-borne illness pending at an outside lab. She was given a prophylactic dose of doxycycline. She has an incidental finding on head CT of a small, stable meningioma which requires no additional workup. She is safe to leave the hospital at this time. Home Meds and New Rx's Prescriptions: Continued lisinopril 20 mg tablet 20 mg PO DAILY Qty: 90 3RF albuterol sulfate [Ventolin HFA] 90 mcg/actuation HFA aerosol inhaler See Rx Instructions .ROUTE .COMPLEX Qty: 18 12RF Dose Instruction: INHALE TWO PUFFS BY MOUTH EVERY 4 HOURS NEEDED Rx Instructions: INHALE TWO PUFFS BY MOUTH EVERY 4 HOURS NEEDED folic acid 1 mg tablet 1 mg PO DAILY Qty: 30 0RF hydroxyzine HCl 25 mg tablet 25 mg PO TID PRN (Reason: anxiety) Qty: 180 1RF (DME) Hand Held Nebulizer See Rx Instructions .Route .MEDSUPPLY Qty: 1 0RF Rx Instructions: As directed naltrexone 50 mg tablet 50 mg PO DAILY Qty: 30 2RF pantoprazole [Protonix] 40 mg tablet,delayed release (DR/EC) 40 mg PO BID Qty: 60 0RF Spiriva Respimat 1.25 mcg/actuation mist 2 puff inhalation DAILY Qty: 4 12RF Patient Comments: states needs refill topiramate 50 mg tablet 50 mg PO HS Qty: 30 0RF trazodone 50 mg tablet See Rx Instructions .ROUTE .COMPLEX Qty: 135 1RF Dose Instruction: TAKE 1 & 1/2 TABLETS BY MOUTH DAILY AT BEDTIME NEEDED FOR SLEEP Rx Instructions: TAKE 1 & 1/2 TABLETS BY MOUTH DAILY AT BEDTIME NEEDED FOR SLEEP doxepin 25 mg capsule 25 mg PO BID Qty: 180 3RF propranolol 20 mg tablet 20 mg PO BID Qty: 180 3RF gabapentin 300 mg capsule 300 mg PO BID Qty: 180 3RF chlorhexidine gluconate 0.12 % mouthwash 15 ml mucous membrane BID Qty: 900 11RF (DME) POCKET CHAMBER Spacer See Rx Instructions .ROUTE .MEDSUPPLY Qty: 1 0RF Rx Instructions: As directed quetiapine 100 mg tablet See Rx Instructions .ROUTE .COMPLEX Qty: 135 0RF Dose Instruction: TAKE ONE AND ONE-HALF TABLETS BY MOUTH AT BEDTIME DAILY Rx Instructions: TAKE ONE AND ONE-HALF TABLETS BY MOUTH AT BEDTIME DAILY (DME) nebulizers Misc See Rx Instructions .ROUTE .MEDSUPPLY Qty: 1 0RF Rx Instructions: As directed thiamine HCl (vitamin B1) 100 mg tablet 100 mg PO DAILY Patient Comments: TAKE ONE TABLET BY MOUTH EVERY DAY ipratropium-albuterol 0.5 mg-3 mg(2.5 mg base)/3 mL Solution For Nebulization 3 ml UPD Q6H PRN (Reason: Wheezing) Qty: 24 2RF budesonide-formoterol [Symbicort] 160-4.5 mcg/actuation Hfa Aerosol Inhaler 2 puff inhalation BID Qty: 1 2RF citalopram 40 mg tablet 40 mg PO DAILY Patient Comments: TAKE ONE TABLET BY MOUTH EVERY DAY Discharge Instructions Instructions: Insect bites and stings Activity:: Activity as Tolerated Equipment/Supplies:: No Equipment Needed Diet:: As Tolerated DS: Summary Time Spent with Patient providing and/or coordinating discharge services: Less than 30 minutes Status at Discharge Functional status at discharge: independent ambulation Overall status at discharge: patient is back to baseline Mental Status: mental status grossly normal Speech and Movement: speech and movement normal Mood: congruent mood Affect: normal affect Quality:SDOH Health Related Social Needs: Health related social needs inadequate housing risk of homeless transpo insecurity material hardship house/econ circumstance finding work lonely/isolated Health related social needs details homeless Health related social needs details: homeless Exam Narrative Exam Narrative: General: This is a pleasant woman in no distress HEENT: Normocephalic, atraumatic CV: RRR Resp: CTAB Abd: soft, NTND MSK: voluntary motion x4 Neuro: awake, alert, no focal deficits Psych Mental Status: mental status grossly normal Speech and Movement: speech and movement normal Mood: congruent mood Affect: normal affect DS: Data Vitals/I&O Vitals and I&O: Vital Signs Temperature 35.8 C L 12/17/24 07:42 Temperature Source Temporal Artery Scan 12/17/24 07:42 Pulse 76 12/17/24 07:42 Pulse 63 12/13/24 02:10 Respiratory Rate 16 12/17/24 07:42 Respiratory Effort Short of Breath 12/13/24 18:05 Respiratory Depth Shallow 12/13/24 18:05 Respiratory Pattern Normal 12/13/24 18:05 Blood Pressure 143/78 H 12/17/24 07:42 Blood Pressure Mean 99 12/17/24 07:42 Pulse Oximetry 95 12/17/24 08:48 Oxygen Delivery Method Room Air 12/17/24 08:48 Oxygen Flow Rate 0 12/17/24 08:48 Pain Level 6 12/17/24 07:42 Comment pt refused vitals stated she doesn't want to be waken up every 4hrs. nurse notified. 12/16/24 23:14 Intake & Output 12/16/24 12/16/24 12/17/24 11:59 23:59 11:59 Intake Total 480 / 480 Output Total Balance 479 / 479 Intake: Oral 480 / 480 Output: Stool Other: Comment chart on wrong person Stool Size Moderate Stool Characteristics Formed Soft Data Completed and Pending Pending Labs at Discharge: 12/13/24 12/13/24 12/13/24 00:40 01:25 03:00 WBC 7.02 RBC 2.82 L Hgb 6.3 L* 5.6 L* Hct 23.3 L 20.6 L* MCV 83 MCH 22.3 L MCHC 27.0 L RDW 20.0 H Plt Count MPV Immature Gran % 1.0 Neutrophils % 53.9 Lymphocytes % 28.6 Monocytes % 8.4 Eosinophils % 7.0 Basophils % 1.1 Nucleated RBC % 0.0 Absolute Neutrophils 3.78 Absolute Lymphocytes 2.01 Absolute Monocytes 0.59 Absolute Eosinophils 0.49 Absolute Basophils 0.08 RBC Morphology See Below Polychromasia Hypochromasia 2+ Anisocytosis VBG pH 7.29 L 7.24 L VBG pCO2 44 47 VBG pO2 54 43 VBG HCO3 21 L 20 L VBG Total CO2 21 L 21 L VBG O2 Saturation 83 69 VBG Base Excess -6 L -7 L VBG Lactate Sodium 142 144 Potassium 3.9 4.1 Chloride 108 H 109 H Carbon Dioxide 21.6 22.8 Anion Gap 12.4 H 12.2 H BUN 21 H 22 H Creatinine 1.3 H 1.1 H Est GFR (CKD-EPI 2020) 48.26 58.97 Glucose 107 H 112 H Calcium 8.5 8.2 L Magnesium 2.2 Total Bilirubin 0.2 AST 23 ALT 15 Alkaline Phosphatase 76 Troponin I Total Protein 7.9 Albumin 3.3 L Salicylates 6.1 Urine Opiates Screen Urine Methadone Screen Acetaminophen < 2 Ur Barbiturates Screen Ur Tricyclics Screen Ur Amphetamines Screen U Benzodiazepines Scrn Urine Cocaine Screen Ur THC Screen Ethyl Alcohol 124.6 H B. divergens/MO-1 PCR Babesia duncani (PCR) Babesia microti DNA PCR Lyme Disease Antibody E.chaffeensis DNA (PCR) E.ewingii/canis DNA PCR E.muris eauclairensis (PCR) A. phagocytophilum (PCR) Blood B. miyamotoi (PCR) ABO/Rh A Positive Antibody Screen NEGATIVE Crossmatch See Detail 12/13/24 12/13/24 12/13/24 05:30 05:43 07:54 WBC RBC Hgb 5.4 L* Hct 19.9 L* MCV MCH MCHC RDW Plt Count MPV Immature Gran % Neutrophils % Lymphocytes % Monocytes % Eosinophils % Basophils % Nucleated RBC % Absolute Neutrophils Absolute Lymphocytes Absolute Monocytes Absolute Eosinophils Absolute Basophils RBC Morphology Polychromasia Hypochromasia Anisocytosis VBG pH 7.34 VBG pCO2 39 L VBG pO2 78 VBG HCO3 21 L VBG Total CO2 21 L VBG O2 Saturation 96 VBG Base Excess -4 L VBG Lactate 1.8 Sodium Potassium Chloride Carbon Dioxide Anion Gap BUN Creatinine Est GFR (CKD-EPI 2020) Glucose Calcium Magnesium Total Bilirubin AST ALT Alkaline Phosphatase Troponin I Total Protein Albumin Salicylates 6.0 Urine Opiates Screen Urine Methadone Screen Acetaminophen < 2 Ur Barbiturates Screen Ur Tricyclics Screen Ur Amphetamines Screen U Benzodiazepines Scrn Urine Cocaine Screen Ur THC Screen Ethyl Alcohol < 3.0 B. divergens/MO-1 PCR Babesia duncani (PCR) Babesia microti DNA PCR Lyme Disease Antibody E.chaffeensis DNA (PCR) E.ewingii/canis DNA PCR E.muris eauclairensis (PCR) A. phagocytophilum (PCR) Blood B. miyamotoi (PCR) ABO/Rh Antibody Screen Crossmatch 12/13/24 12/13/24 12/14/24 10:21 13:58 11:50 WBC 6.97 10.90 H RBC 3.20 L 3.22 L Hgb 7.7 L D 7.8 L Hct 26.1 L 25.9 L MCV 82 80 MCH 24.1 L 24.2 L MCHC 29.5 L D 30.1 L RDW 18.6 H 18.9 H Plt Count 423 H 392 MPV 9.7 9.9 Immature Gran % 0.3 Neutrophils % 79.5 Lymphocytes % 9.5 Monocytes % 8.0 Eosinophils % 2.0 Basophils % 0.7 Nucleated RBC % 0.0 Absolute Neutrophils 8.67 H Absolute Lymphocytes 1.04 L Absolute Monocytes 0.87 H Absolute Eosinophils 0.22 Absolute Basophils 0.08 RBC Morphology See Below Polychromasia Present Hypochromasia 2+ Anisocytosis 1+ VBG pH VBG pCO2 VBG pO2 VBG HCO3 VBG Total CO2 VBG O2 Saturation VBG Base Excess VBG Lactate Sodium 139 Potassium 4.0 Chloride 106 Carbon Dioxide 25.3 Anion Gap 7.7 BUN 19 H Creatinine 0.9 Est GFR (CKD-EPI 2020) 75.03 Glucose 115 H Calcium 8.7 Magnesium 2.0 Total Bilirubin 0.4 AST 11 L ALT 13 L Alkaline Phosphatase 69 Troponin I Total Protein 6.8 Albumin 2.8 L Salicylates Urine Opiates Screen Negative Urine Methadone Screen Negative Acetaminophen Ur Barbiturates Screen Negative Ur Tricyclics Screen Positive A Ur Amphetamines Screen Negative U Benzodiazepines Scrn Negative Urine Cocaine Screen Negative Ur THC Screen Negative Ethyl Alcohol B. divergens/MO-1 PCR Babesia duncani (PCR) Babesia microti DNA PCR Lyme Disease Antibody E.chaffeensis DNA (PCR) E.ewingii/canis DNA PCR E.muris eauclairensis (PCR) A. phagocytophilum (PCR) Blood B. miyamotoi (PCR) ABO/Rh Antibody Screen Crossmatch 12/15/24 12/15/24 12/15/24 04:41 06:20 07:00 WBC 12.96 H RBC 2.31 L Hgb 5.7 L* D Hct 18.6 L* MCV 81 MCH 24.7 L MCHC 30.6 L RDW 20.0 H Plt Count 443 H MPV 9.9 Immature Gran % 0.6 Neutrophils % 73.1 Lymphocytes % 12.9 Monocytes % 10.6 Eosinophils % 2.6 Basophils % 0.2 Nucleated RBC % 0.0 Absolute Neutrophils 9.47 H Absolute Lymphocytes 1.67 Absolute Monocytes 1.37 H Absolute Eosinophils 0.34 Absolute Basophils 0.03 RBC Morphology Polychromasia Hypochromasia Anisocytosis VBG pH VBG pCO2 VBG pO2 VBG HCO3 VBG Total CO2 VBG O2 Saturation VBG Base Excess VBG Lactate Sodium 137 Potassium 3.6 Chloride 105 Carbon Dioxide 25.9 Anion Gap 6.1 BUN 15 Creatinine 0.9 Est GFR (CKD-EPI 2020) 75.03 Glucose 99 Calcium 8.5 Magnesium 1.9 Total Bilirubin 0.4 AST 10 L ALT 10 L Alkaline Phosphatase 70 Troponin I Total Protein 7.1 Albumin 2.8 L Salicylates Urine Opiates Screen Urine Methadone Screen Acetaminophen Ur Barbiturates Screen Ur Tricyclics Screen Ur Amphetamines Screen U Benzodiazepines Scrn Urine Cocaine Screen Ur THC Screen Ethyl Alcohol B. divergens/MO-1 PCR Cancelled Pending Babesia duncani (PCR) Cancelled Pending Babesia microti DNA PCR Cancelled Pending Lyme Disease Antibody Negative E.chaffeensis DNA (PCR) Cancelled Pending E.ewingii/canis DNA PCR Cancelled Pending E.muris eauclairensis (PCR) Cancelled Pending A. phagocytophilum (PCR) Cancelled Pending Blood B. miyamotoi (PCR) Cancelled Pending ABO/Rh A Positive Antibody Screen NEGATIVE Crossmatch See Detail 12/15/24 12/16/24 12/16/24 07:20 06:22 13:09 WBC 8.19 RBC 3.49 L Hgb 7.7 L D 8.3 L Hct 25.7 L 28.3 L MCV 81 MCH 23.8 L MCHC 29.3 L RDW 20.3 H Plt Count 382 MPV 10.2 Immature Gran % 0.5 Neutrophils % 66.8 Lymphocytes % 17.8 Monocytes % 9.2 Eosinophils % 4.8 Basophils % 0.9 Nucleated RBC % 0.0 Absolute Neutrophils 5.48 Absolute Lymphocytes 1.46 Absolute Monocytes 0.75 Absolute Eosinophils 0.39 Absolute Basophils 0.07 RBC Morphology Polychromasia Hypochromasia Anisocytosis VBG pH VBG pCO2 VBG pO2 VBG HCO3 VBG Total CO2 VBG O2 Saturation VBG Base Excess VBG Lactate Sodium 140 Potassium 4.2 Chloride 105 Carbon Dioxide 23.9 Anion Gap 11.1 H BUN 20 H Creatinine 1.1 H Est GFR (CKD-EPI 2020) 58.97 Glucose 117 H Calcium 8.9 Magnesium Total Bilirubin 0.3 AST 8 L ALT 13 L Alkaline Phosphatase 65 Troponin I 9 Total Protein 7.6 Albumin 2.9 L Salicylates Urine Opiates Screen Urine Methadone Screen Acetaminophen Ur Barbiturates Screen Ur Tricyclics Screen Ur Amphetamines Screen U Benzodiazepines Scrn Urine Cocaine Screen Ur THC Screen Ethyl Alcohol B. divergens/MO-1 PCR Babesia duncani (PCR) Babesia microti DNA PCR Lyme Disease Antibody E.chaffeensis DNA (PCR) E.ewingii/canis DNA PCR E.muris eauclairensis (PCR) A. phagocytophilum (PCR) Blood B. miyamotoi (PCR) ABO/Rh Antibody Screen Crossmatch 12/17/24 06:26 WBC 7.94 RBC 3.58 L Hgb 8.3 L Hct 29.2 L MCV 82 MCH 23.2 L MCHC 28.4 L RDW 20.8 H Plt Count 401 H MPV 10.2 Immature Gran % 0.8 Neutrophils % 65.1 Lymphocytes % 17.1 Monocytes % 10.3 Eosinophils % 5.8 Basophils % 0.9 Nucleated RBC % 0.0 Absolute Neutrophils 5.17 Absolute Lymphocytes 1.36 Absolute Monocytes 0.82 H Absolute Eosinophils 0.46 Absolute Basophils 0.07 RBC Morphology Polychromasia Hypochromasia Anisocytosis VBG pH VBG pCO2 VBG pO2 VBG HCO3 VBG Total CO2 VBG O2 Saturation VBG Base Excess VBG Lactate Sodium Potassium Chloride Carbon Dioxide Anion Gap BUN Creatinine Est GFR (CKD-EPI 2020) Glucose Calcium Magnesium Total Bilirubin AST ALT Alkaline Phosphatase Troponin I Total Protein Albumin Salicylates Urine Opiates Screen Urine Methadone Screen Acetaminophen Ur Barbiturates Screen Ur Tricyclics Screen Ur Amphetamines Screen U Benzodiazepines Scrn Urine Cocaine Screen Ur THC Screen Ethyl Alcohol B. divergens/MO-1 PCR Babesia duncani (PCR) Babesia microti DNA PCR Lyme Disease Antibody E.chaffeensis DNA (PCR) E.ewingii/canis DNA PCR E.muris eauclairensis (PCR) A. phagocytophilum (PCR) Blood B. miyamotoi (PCR) ABO/Rh Antibody Screen Crossmatch PFSH All Active Problems (Updated 12/17/24 @ 11:46 by Freedom Mccauley MD) Tick bite (Acute) Pancreatic pseudocyst (Acute) Meningioma (Acute) Altered mental status (Acute) Acidosis (Acute) Alcohol intoxication (Acute) Alcohol dependence (Acute) COVID-19 virus infection (Acute) COVID (Acute) Alcohol intoxication (Acute) Alcohol use disorder in remission (Acute) Anemia (Chronic) Alcohol intoxication in active alcoholic (Acute) CKD (chronic kidney disease) (Chronic) Anemia (Chronic) Depression with anxiety (Chronic) Abdominal fluid collection (Acute) Dyslipidemia (Acute) Abdominal pain, chronic, left upper quadrant (Acute) Chronic upper gastrointestinal bleeding (Chronic) Cyst and pseudocyst of pancreas (Acute) Anxiety (Chronic) DUB (dysfunctional uterine bleeding) (Acute) Impaired fasting blood sugar (Acute 08/01/05) Obesity, unspecified (Acute 05/31/11) Atypical squamous cells of undetermined significance (ASC-US) on cervical Pap smear (Acute 08/05/09) ASCUS 08/05/09; 05/31/2011 Spinal stenosis of lumbar region (Acute 01/11/10) LS spine surg; Dr Sebastian Walker Tobacco dependence (Acute 08/01/05) Medical History Pulmonary embolus Helicobacter pylori (H. pylori) Chronic pain (02/20/09) chronic tramadol rx, back pain, sciatica despite LS surg 2009. Depression (04/03/15) Sertaline in the past with good relief of sx but then developed intolerable adverse rxns (nausea, flushing) Started on venlafaxine 03/2015 PHQ9 score = 9, indicating mild depression 03/2015 Anemia COPD (chronic obstructive pulmonary disease) HTN (hypertension), benign Spinal stenosis Lumbar region Surgical History History of esophagogastroduodenoscopy (EGD) (~08/05/24) w bx. per report-negative for H.Pylori Internal injury, spleen, closed with IR embolization Back surgery L5-S1 decompression 2009 Family History Mother , lung cancer at age 50. No problems noted. Father , MVA No problems noted. Other Lung cancer Social History Smoking/Tobacco Use Status: Current every day Tobacco Type: cigarettes Smoking risk assessment performed?: Yes Alcohol Intake: current Alcohol Intake frequency: 3 or more drinks per day Alcohol type: beer and hard liquor Drug use: Never Substance use type: does not use Details: last drink about 3 weeks ago. 10/13/24 Housing: homeless Do you feel safe at home: Yes Do you feel safe in your relationship?: Yes Time Spent with Patient Time Spent with Patient: <45 minutes Time was spent: preparing to see the patient(eg.review tests), obtaining and/or reviewing separately otained hiistory, ordering medications,tests, procedures, referring, communicating with other health care transitions manager, indepentently interpreting results, counseling the patient and care coordination
[2024-12-17 11:13] VITALS: BP 121/93; PULSE 82; RESP 16; TEMP 36.2; O2SAT 96
--- NOTE | 2024-12-17 14:04 | PDOC.CMDIS ---
Date of service: 12/17/24 Time of Service: 14:04 LACE Index Scoring Tool Questions: Length of Stay (in days): 4 - 6 Was the patient admitted via the E.D.?: Yes Comorbidities: Chronic Pulmonary Disease and Liver or Renal Disease E.D. Visits: 14 Answers: Total Score: 16 Risk of Readmission: High Risk Care Management Discharge Plan Reason for Hospitalization: GIB Discharge Plan: Adrianne will be discharged back to the community later today. She does not have a home or a place to go. She has been staying with her daughter who is not supposed to have anyone else living in her home so is reluctant to take Adrianne back. Adrianne has used all of her voucher days for the year for hotel housing and there is a waiting list for the snf. will arrange RCT transport to [facility], at Adrianne's request, where she will wait until her daughter gets home from work in hopes that she will reconsider. Patient/Family Education Needs: Review discharge instructions, discuss Ask Me Three Services Needed at Discharge: Transportation SDOH Health Related Social Needs: Health related social needs material hardship house/econ circumstance Health related social needs details homeless Health related social needs details: homeless
[2024-12-17 15:25] VITALS: BP 120/79; PULSE 86; RESP 16; TEMP 36.4; O2SAT 95
[2024-12-19 16:18] LABS: B. miyamotoi PCR Negative (Negative); Babesia divergens/MO-1 Negative (Negative); Ehrlichia muris eauclairensis Negative (Negative)
== END 2024-12-17 16:34 | disposition home or self-care (01) | DRG 378 ==
LOC: ER 11:04 → MS 12:09
PROVIDERS: Hospitalist; Student in an Organized Health Care Education/Training Program; Admitting Provider Family Medicine; Emergency Provider Emergency Medicine; Responsible Provider Family Medicine; Visit Provider Family Medicine
DX: K92.2 Gastrointestinal hemorrhage, unspecified (principal); D62 Acute posthemorrhagic anemia; N17.9 Acute kidney failure, unspecified; K86.3 Pseudocyst of pancreas; Z59.02 Unsheltered homelessness; F41.8 Other specified anxiety disorders; I95.9 Hypotension, unspecified; R51.9 Headache, unspecified; F10.229 Alcohol dependence with intoxication, unspecified; Y90.8 Blood alcohol level of 240 mg/100 ml or more; D32.0 Benign neoplasm of cerebral meninges; N18.9 Chronic kidney disease, unspecified; E78.5 Hyperlipidemia, unspecified; G89.29 Other chronic pain; R10.12 Left upper quadrant pain; R73.01 Impaired fasting glucose; E66.9 Obesity, unspecified; Z86.711 Personal history of pulmonary embolism; F32.A Depression, unspecified; J44.9 Chronic obstructive pulmonary disease, unspecified; I12.9 Hypertensive chronic kidney disease with stage 1 through stage 4 chronic kidney disease, or unspecified chronic kidney disease; M48.061 Spinal stenosis, lumbar region without neurogenic claudication; F17.210 Nicotine dependence, cigarettes, uncomplicated; Z56.9 Unspecified problems related to employment; Z60.8 Other problems related to social environment; Z59.89 Other problems related to housing and economic circumstances
CPT/HCPCS: 00123; 36415; 36430; 80048; 80053; 80307; 82805; 85027; 86850; 86900; 86901; 86920; 87798; 93005; 94640; 96361; 96372; 96374; 99291; 70450; 74177; 80320; 80329; 82272; 83605; 83735; 84484; 85014; 85018; 85025; 86618; 93010; 94664; 94760; 99222; 99231; 99238; J2312; J2470; J3490; J7620; P9016

== ENCOUNTER 2024-12-17 21:46 | Emergency (ER) | payer MEDICAID, SELFPAY ==
[2024-12-17] VITALS (26 sets, daily range): BP systolic 88–135; BP diastolic 51–73; PULSE 63–86; RESP 12–31; O2SAT 83–93
--- NOTE | 2024-12-17 21:45 | RT.EKG_ITS ---
APPROVED REPORT Exam: Resting ECG Reason for Exam: AMS, found down Patient Location: E HR:75 bpm ECG Measurements Heart Rate 75 AXIS MI 166 P 23 QRSd 98 QRS 61 QT 411 T 53 QTc 458 Conclusion Sinus rhythm...normal P axis, V-rate 60- 99 Physician: No STEMI
--- NOTE | 2024-12-17 22:02 | W.ED.FU ---
Date of service: 12/17/24 Time of Service: 22:02 Follow Up Plan: I evaluated this patient on arrival from EMS. She was discharged today from this facility and was reportedly found intoxicated on the sidewalk outside of the local supermarket. There was no obvious sign of trauma and she had a bottle of vodka lying next to her. Patient was not able to assist with ambulation to the stretcher and would not give the EMS her name. On arrival patient is able to tell me her name. She declines consuming any alcohol or illicit substances. She denies any pain complaints. She opens her eyes to voice, she has no visible sign of head trauma, no hemotympanum her oropharynx is patent her uvula is midline and there is no trauma to her tongue, she has no tenderness to palpation or obvious deformity to her cervical spine her abdomen is minimally tender diffusely without sign of trauma, no CVA tenderness no thoracic or lumbar spine tenderness no hip tenderness or visible sign of trauma pupils are equal round reactive to light and accommodation she does have a small abrasion to her right knee but I am able to flex and extend it without any obvious discomfort. Pulses are intact. Patient is known to this facility with a history of alcoholism. as she is unable to give us any history at this time, I will order CT head and diagnostic blood work EKG and fingerstick blood glucose
--- NOTE | 2024-12-17 22:15 | W.ED.GENAD ---
Discharge Plan Disposition Patient Disposition: Home Condition: Good Discharge Details Clinical Impression: Alcohol intoxication in active alcoholic Primary Care Provider: Paula Barboza ED Provider: Coy Rosa Home Meds and New Rx's Prescriptions: No Action lisinopril 20 mg tablet 20 mg PO DAILY Qty: 90 3RF albuterol sulfate [Ventolin HFA] 90 mcg/actuation HFA aerosol inhaler See Rx Instructions .ROUTE .COMPLEX Qty: 18 12RF Dose Instruction: INHALE TWO PUFFS BY MOUTH EVERY 4 HOURS NEEDED Rx Instructions: INHALE TWO PUFFS BY MOUTH EVERY 4 HOURS NEEDED folic acid 1 mg tablet 1 mg PO DAILY Qty: 30 0RF hydroxyzine HCl 25 mg tablet 25 mg PO TID PRN (Reason: anxiety) Qty: 180 1RF (DME) Hand Held Nebulizer See Rx Instructions .Route .MEDSUPPLY Qty: 1 0RF Rx Instructions: As directed naltrexone 50 mg tablet 50 mg PO DAILY Qty: 30 2RF pantoprazole [Protonix] 40 mg tablet,delayed release (DR/EC) 40 mg PO BID Qty: 60 0RF Spiriva Respimat 1.25 mcg/actuation mist 2 puff inhalation DAILY Qty: 4 12RF Patient Comments: states needs refill topiramate 50 mg tablet 50 mg PO HS Qty: 30 0RF trazodone 50 mg tablet See Rx Instructions .ROUTE .COMPLEX Qty: 135 1RF Dose Instruction: TAKE 1 & 1/2 TABLETS BY MOUTH DAILY AT BEDTIME NEEDED FOR SLEEP Rx Instructions: TAKE 1 & 1/2 TABLETS BY MOUTH DAILY AT BEDTIME NEEDED FOR SLEEP doxepin 25 mg capsule 25 mg PO BID Qty: 180 3RF propranolol 20 mg tablet 20 mg PO BID Qty: 180 3RF gabapentin 300 mg capsule 300 mg PO BID Qty: 180 3RF chlorhexidine gluconate 0.12 % mouthwash 15 ml mucous membrane BID Qty: 900 11RF (DME) POCKET CHAMBER Spacer See Rx Instructions .ROUTE .MEDSUPPLY Qty: 1 0RF Rx Instructions: As directed quetiapine 100 mg tablet See Rx Instructions .ROUTE .COMPLEX Qty: 135 0RF Dose Instruction: TAKE ONE AND ONE-HALF TABLETS BY MOUTH AT BEDTIME DAILY Rx Instructions: TAKE ONE AND ONE-HALF TABLETS BY MOUTH AT BEDTIME DAILY (DME) nebulizers Misc See Rx Instructions .ROUTE .MEDSUPPLY Qty: 1 0RF Rx Instructions: As directed thiamine HCl (vitamin B1) 100 mg tablet 100 mg PO DAILY Patient Comments: TAKE ONE TABLET BY MOUTH EVERY DAY ipratropium-albuterol 0.5 mg-3 mg(2.5 mg base)/3 mL Solution For Nebulization 3 ml UPD Q6H PRN (Reason: Wheezing) Qty: 24 2RF budesonide-formoterol [Symbicort] 160-4.5 mcg/actuation Hfa Aerosol Inhaler 2 puff inhalation BID Qty: 1 2RF citalopram 40 mg tablet 40 mg PO DAILY Patient Comments: TAKE ONE TABLET BY MOUTH EVERY DAY Discharge Instructions Instructions: Alcohol Intoxication ED Additional Instructions: Please continue avoiding alcohol. If you notice any worsening of your symptoms, or any new symptoms such as vomiting, diarrhea, fever, chills, shortness of breath, chest pain, numbness, weakness, or fainting , please return immediately to the emergency department for reevaluation. Please follow up with your primary care provider as soon as possible for reassessment and reevaluation. As always, it was a pleasure participating in your medical care today. Referrals: Paula Barboza NP [Primary Care Provider, Medicine] [facility] General Date/Time Provider Initiated Documentation: 12/17/24 21:51. HPI Narrative: This is a 54-year-old female with past medical history of previous pulmonary embolism not anticoagulated, H. pylori, GERD, depression, COPD, hypertension, spinal stenosis, history of pancreatic pseudocyst and chronic alcoholism, CKD, previous anemia, who presents today for evaluation of intoxication. Patient was found outside of supermarket intoxicated. She was brought in by EMS for further assessment. No evidence of significant trauma aside for an abrasion of the right knee. Patient states that she was not drinking any alcohol today, however she was holding a bottle of vodka when picked up and clearly smells of alcohol. She denies any other complaints, and is notably intoxicated at this time. Related Data Home Medications ?Medication ?Instructions ?Recorded ?Confirmed inhalational spacing device #1 ea 09/28/20 12/13/24 (POCKET CHAMBER spacer) nebulizers #1 ea 03/16/21 12/13/24 lisinopril 20 mg tablet 20 mg PO DAILY #90 tab-caps 11/27/23 12/13/24 Hand Held Nebulizer #1 ea 06/21/24 12/13/24 albuterol sulfate 90 mcg/actuation See Rx Instructions .Route 06/21/24 12/13/24 aerosol inhaler (Ventolin HFA) .COMPLEX #18 grams folic acid 1 mg tablet 1 mg PO DAILY #30 tabs 06/21/24 12/13/24 hydroxyzine HCl 25 mg tablet 25 mg PO TID PRN anxiety #180 tabs 06/21/24 12/13/24 thiamine HCl (vitamin B1) 100 mg 100 mg PO DAILY 07/24/24 12/13/24 tablet budesonide-formoterol HFA 160 2 puff inhalation BID #1 inh 07/27/24 12/13/24 mcg-4.5 mcg/actuation aerosol inhaler (Symbicort) ipratropium 0.5 mg-albuterol 3 mg 3 ml UPD Q6H PRN Wheezing #24 pkgs 07/27/24 12/13/24 (2.5 mg base)/3 mL nebulization soln quetiapine 100 mg tablet See Rx Instructions .Route 10/17/24 12/13/24 .COMPLEX #135 tabs chlorhexidine gluconate 0.12 % 15 ml mucous membrane BID #900 mL 10/30/24 12/13/24 mouthwash doxepin 25 mg capsule 25 mg PO BID #180 caps 10/30/24 12/13/24 gabapentin 300 mg capsule 300 mg PO BID #180 caps 10/30/24 12/13/24 naltrexone 50 mg tablet 50 mg PO DAILY #30 tabs 10/30/24 12/13/24 pantoprazole 40 mg tablet,delayed 40 mg PO BID #60 tabs 10/30/24 12/13/24 release (Protonix) propranolol 20 mg tablet 20 mg PO BID #180 tabs 10/30/24 12/13/24 tiotropium bromide 1.25 2 puff inhalation DAILY #4 grams 10/30/24 12/13/24 mcg/actuation mist for inhalation (Spiriva Respimat) topiramate 50 mg tablet 50 mg PO HS #30 tabs 10/30/24 12/13/24 trazodone 50 mg tablet See Rx Instructions .Route 10/30/24 12/13/24 .COMPLEX #135 tabs citalopram 40 mg tablet 40 mg PO DAILY 12/13/24 12/13/24 Previous Rx's ?Medication ?Instructions ?Recorded inhalational spacing device #1 ea 09/28/20 (POCKET CHAMBER spacer) nebulizers #1 ea 03/16/21 lisinopril 20 mg tablet 20 mg PO DAILY #90 tab-caps 11/27/23 Hand Held Nebulizer #1 ea 06/21/24 albuterol sulfate 90 mcg/actuation See Rx Instructions .Route 06/21/24 aerosol inhaler (Ventolin HFA) .COMPLEX #18 grams folic acid 1 mg tablet 1 mg PO DAILY #30 tabs 06/21/24 hydroxyzine HCl 25 mg tablet 25 mg PO TID PRN anxiety #180 tabs 06/21/24 budesonide-formoterol HFA 160 2 puff inhalation BID #1 inh 07/27/24 mcg-4.5 mcg/actuation aerosol inhaler (Symbicort) ipratropium 0.5 mg-albuterol 3 mg 3 ml UPD Q6H PRN Wheezing #24 pkgs 07/27/24 (2.5 mg base)/3 mL nebulization soln quetiapine 100 mg tablet See Rx Instructions .Route 10/17/24 .COMPLEX #135 tabs chlorhexidine gluconate 0.12 % 15 ml mucous membrane BID #900 mL 10/30/24 mouthwash doxepin 25 mg capsule 25 mg PO BID #180 caps 10/30/24 gabapentin 300 mg capsule 300 mg PO BID #180 caps 10/30/24 naltrexone 50 mg tablet 50 mg PO DAILY #30 tabs 10/30/24 pantoprazole 40 mg tablet,delayed 40 mg PO BID #60 tabs 10/30/24 release (Protonix) propranolol 20 mg tablet 20 mg PO BID #180 tabs 10/30/24 tiotropium bromide 1.25 2 puff inhalation DAILY #4 grams 10/30/24 mcg/actuation mist for inhalation (Spiriva Respimat) topiramate 50 mg tablet 50 mg PO HS #30 tabs 10/30/24 trazodone 50 mg tablet See Rx Instructions .Route 10/30/24 .COMPLEX #135 tabs Allergies Allergy/AdvReac Type Severity Reaction Status Date / Time hydromorphone (From Dilaudid) Allergy Severe Itching Verified 10/30/24 13:04 oxycodone AdvReac Unknown TERRIBLE Verified 10/30/24 13:04 DREAMS General Stated Complaint: ETOHWithdr ALISTAIR: 3 Exam Narrative Exam Narrative: 1.Const: Well-nourished, Well-developed, appearing stated age 2.Eyes: PERRL, no conjunctival injection, and symmetrical lids. 3.ENT: Atraumatic external nose and ears. Moist MM. Neck: Symmetric, trachea midline, No thyromegaly. There is no evidence of raccoon eyes, anderson sign, CSF rhinorrhea, mastoid tenderness, cranial crepitus, hemotympanum, exophthalmos, or hyphema. Patient demonstrates intact dentition with no signs of tooth avulsion or fracture, no signs of jaw deformity, no evidence of a LeFort's fracture, with an intact palate, nose and orbital region. There is no evidence of a nasal septal hematoma. No proptosis. Jaw closes symmetrically. Airway is clear. 4.CVS: Regular rate and rhythm, Normal s1 and s2. No murmurs, carotid bruits, rubs, or gallops. Radial pulses 2+ bilaterally and symmetric. Dorsalis pedis pulses 2+ bilaterally and symmetric. 2+ capillary refill. No evidence of distant heart sounds. No extremity edema. No evidence of gross hemorrhage. 5.RESP: Airway clear, no obstructions. No abrasions or ecchymosis. Chest movement symmetric with respirations. No chest wall tenderness. Trachea midline. No crepitus. No step offs. No paradoxical movements. Lungs are clear to auscultation bilaterally. No rales, rhonchi, wheezing or stridor. Breath sound symmetric. No Sucking chest wounds. No clinical evidence of significant chest trauma. 6.GI: Soft, nondistended, nontender. Bowel tones normoactive. No masses or organomegaly. No ecchymosis or abrasions. No periumbilical ecchymosis or seatbelt sign. No flank or CVA tenderness. No clinical signs of significant trauma. G No clinical evidence of significant abdominal trauma. 7.MSK: No gross deformities or discolorations or lesions. Tolerates full range of motion of extremities without tenderness. All compartments of upper and lower extremities are soft with no tenderness. Vascular exam demonstrates brisk capillary refill and intact pulses in all extremities. Pelvic exam demonstrates a stable pelvis, nontender to lateral compression and palpation of symphysis pubis.. No clinical evidence of significant musculoskeletal trauma. There is an abrasion on the right knee, but no swelling or bruising otherwise. 8.Skin: Warm, Dry. No rashes or lesions. 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 Sensation grossly intact, no focal neurologic deficits. 10.Psych: (AAO) x. Notably intoxicated, but able to answer questions Course Vital Signs Vital signs: Vital Signs Pulse 82 12/17/24 21:47 Respiratory Rate 18 12/17/24 21:47 Blood Pressure 135/73 12/17/24 21:47 Pulse Oximetry 92 12/17/24 21:47 Pulse 82 12/17/24 21:47 Respiratory Rate 18 12/17/24 21:47 Blood Pressure 135/73 12/17/24 21:47 Blood Pressure Position Supine 12/17/24 21:47 Pulse Oximetry 92 12/17/24 21:47 Oxygen Delivery Method Room Air 12/17/24 21:47 Oxygen Flow Rate 0 12/17/24 21:47 Medical Decision Making This is a 54-year-old female with past medical history of previous pulmonary embolism not anticoagulated, H. pylori, GERD, depression, COPD, hypertension, spinal stenosis, history of pancreatic pseudocyst and chronic alcoholism, CKD, previous anemia, who presents today for evaluation of intoxication. Patient was found outside of supermarket intoxicated. She was brought in by EMS for further assessment. No evidence of significant trauma aside for an abrasion of the right knee. Patient states that she was not drinking any alcohol today, however she was holding a bottle of vodka when picked up and clearly smells of alcohol. She denies any other complaints, and is notably intoxicated at this time. Exam demonstrates an intoxicated appearing female, abrasion on the right knee, but no tenderness or abnormalities otherwise throughout the rest of her exam. The differential is highest for reason abrasion, right knee, hand intoxication. We will rehydrate, get labs to make sure there is no evidence of anemia or severe electrolyte abnormality. Will get CT imaging of the head to rule out any potential bleed although this is unlikely. Will monitor closely and reassess until sobriety is achieved. 7:29 AM Patient has been reassessed. On reassessment she is notably achieved sobriety. The patient is able to speak clearly. There is no demonstration of any slurring of speech. There is evidence of clear decision making capacity. Patient is able to ambulate well without any difficulty. There are no signs of ataxia or stumbling motions. Patient stable for discharge. Patient provided with resources for help and support outpatient. I have extensively reviewed the treatment plan and discharge instructions with the patient. I have addressed all patient concerns at this time. The patient was made aware of what symptoms to monitor for that would warrant a return to the emergency department. Discussed the plan with the patient, they demonstrate verbal understanding and agreement with our assessment and plan at this time. The documentation in this chart was dictated using [employer] dictation software. Please excuse any dictation errors. FINDINGS: Bones/joints: Normal. Soft tissues: Normal. IMPRESSION: No acute findings. Thank you for allowing us to participate in the care of your patient. Dictated and Authenticated by: Darrius Vora MD 12/18/2024 2:21 AM Eastern Time ([place] & [place] FINDINGS: Brain: Subcentimeter partially calcified anterior superior right frontal meningioma. No brain edema. No intracranial hemorrhage. Cerebral ventricles: No ventriculomegaly. Paranasal sinuses: Visualized sinuses are unremarkable. No fluid levels. Mastoid air cells: Unremarkable. Bones: Unremarkable. No acute fracture. Soft tissues: Unremarkable. IMPRESSION: No acute brain findings. Thank you for allowing us to participate in the care of your patient. Dictated and Authenticated by: Darrius Vora MD Quality:SDOH Health Related Social Needs: Health related social needs material hardship house/econ circumstance Health related social needs details homeless [facility] All Active Problems (Updated 12/18/24 @ 07:35 by Coy Rosa DO) Tick bite (Acute) Pancreatic pseudocyst (Acute) Meningioma (Acute) Altered mental status (Acute) Acidosis (Acute) Alcohol intoxication (Acute) Alcohol dependence (Acute) COVID-19 virus infection (Acute) COVID (Acute) Alcohol use disorder in remission (Acute) Anemia (Chronic) Alcohol intoxication in active alcoholic (Acute) CKD (chronic kidney disease) (Chronic) Anemia (Chronic) Depression with anxiety (Chronic) Abdominal fluid collection (Acute) Dyslipidemia (Acute) Abdominal pain, chronic, left upper quadrant (Acute) Chronic upper gastrointestinal bleeding (Chronic) Cyst and pseudocyst of pancreas (Acute) Anxiety (Chronic) DUB (dysfunctional uterine bleeding) (Acute) Impaired fasting blood sugar (Acute 08/01/05) Obesity, unspecified (Acute 05/31/11) Atypical squamous cells of undetermined significance (ASC-US) on cervical Pap smear (Acute 08/05/09) ASCUS 08/05/09; 05/31/2011 Spinal stenosis of lumbar region (Acute 01/11/10) LS spine surg; Mitzy Hughes, Dr Cortes Tobacco dependence (Acute 08/01/05) Medical History Pulmonary embolus Helicobacter pylori (H. pylori) Chronic pain (02/20/09) chronic tramadol rx, back pain, sciatica despite LS surg 2009. Depression (04/03/15) Sertaline in the past with good relief of sx but then developed intolerable adverse rxns (nausea, flushing) Started on venlafaxine 03/2015 PHQ9 score = 9, indicating mild depression 03/2015 Anemia COPD (chronic obstructive pulmonary disease) HTN (hypertension), benign Spinal stenosis Lumbar region Surgical History History of esophagogastroduodenoscopy (EGD) (~08/05/24) w bx. per report-negative for H.Pylori Internal injury, spleen, closed with IR embolization Back surgery L5-S1 decompression 2009 Family History Mother , lung cancer at age 50. No problems noted. Father , MVA No problems noted. Other Lung cancer Social History Smoking/Tobacco Use Status: Current every day Tobacco Type: cigarettes Smoking risk assessment performed?: Yes Alcohol Intake: current Alcohol Intake frequency: 0-2 drinks per day Alcohol type: beer and hard liquor Drug use: Never Substance use type: does not use Housing: homeless Do you feel safe at home: Yes Do you feel safe in your relationship?: Yes
[2024-12-17 22:35] LABS: Abs Immature Grans 0.09 10^3/uL (0.0-0.06); HCT 31.8 % (36.0-46.0); HGB 9.2 g/dL (11.2-15.7); Immature Grans % 0.9 %; MCH 23.9 pg (27.0-33.0); MCHC 28.9 % (32.0-36.0); MCV 83 fL (80-95); MPV 10.0 fL (8.0-11.0); Platelet Count 416 10^3/uL (130-400); RBC 3.85 10^6/uL (3.93-5.22); RDW 21.2 % (11.7-14.6); RDW-SD 62.6 fL; WBC 9.84 10^3/uL (4.4-10.8)
[2024-12-17 22:48] LABS: Anisocytosis 2+; Hypochromasia 1+
[2024-12-17 22:49] LABS: INR 1.0 (0.9-1.1); Prothrombin Time 10.3 sec (9.1-11.1)
[2024-12-17 22:55] LABS: ALT 15 U/L (14-59); AST 23 U/L (15-37); Albumin 3.4 g/dL (3.4-5.0); Alkaline Phosphatase 81 U/L (46-116); Anion Gap 11.0 mmol/L (3-11); BUN 24 mg/dL (7-18); Bilirubin, Total 0.2 mg/dL (0.2-1.0); CO2 21.0 mmol/L (21.0-32.0); Calcium 8.9 mg/dL (8.5-10.1); Chloride 105 mmol/L (98-107); Estimated GFR 66.12 (mL/min/1.73m2); Glucose 116 mg/dL (74-106); Lipase 39 U/L (<78); Magnesium 2.5 mg/dL (1.8-2.4); Potassium 4.4 mmol/L (3.5-5.1); Sodium 137 mmol/L (136-145); Total Protein 8.5 g/dL (6.4-8.2); Troponin I 7 ng/L (<or=51)
[2024-12-17] MEDS: Lactated Ringers 1,000 ML 1000 ML IV (22:55)
[2024-12-17 23:57] LABS: Troponin I 7 ng/L (<or=51)
[2024-12-18] VITALS (39 sets, daily range): BP systolic 104–115; BP diastolic 62–73; PULSE 69–89; RESP 9–25; O2SAT 96
--- NOTE | 2024-12-18 | DI.RAD_ITS ---
Exam(s) XR KNEE RT 3V AP,LAT,ACE EXAM: XR KNEE RT 3V AP,LAT,ACE CLINICAL HISTORY: fall, etoh, right knee excoriations. TECHNIQUE: 2D digital imaging was performed. COMPARISON: CR,XR XR KNEE LT 3V AP,LAT,ACE from 07/27/2021 FINDINGS: 3 views No evidence acute fracture nor prominent joint effusion. No significant joint space narrowing. Small osteophytic density adjacent to the outer aspect of the medial femoral condyle may be related to prior MCL injury. Bone density is normal. No osseous lesions. IMPRESSION: No acute osseous findings. DATA REPOSITORY: RADIATION DOSE DELIVERED:
--- NOTE | 2024-12-18 | DI.CT_ITS ---
Exam(s) CT HEAD WO EXAM: CT HEAD WO CLINICAL HISTORY: AMS, found down. TECHNIQUE: Imaging Protocol: Axial computed tomography images with coronal and sagittal reformatted images were created and reviewed COMPARISON: CT CT HEAD WO from 09/03/[address] HEAD WO from 12/13/2024 FINDINGS: There are no skull fractures. There is no fluid in the visualized paranasal sinuses. There is no evidence of intracranial hemorrhage, mass effect, or shift of midline structures. There are no extra-axial fluid collections. The ventricles are not enlarged or shifted and there is no blood within the ventricular system nor within the basal cisterns. Incidentally noted is a 9 mm size partially calcified dural-based hyperdensity in the right frontal region which is probably a small meningioma, similar to previous CT scans.. IMPRESSION: No acute intracranial findings on this noninfused CT scan of the brain. Small right frontal meningioma again noted RADIATION DOSE DELIVERED: 832.96mGy.cm Total DLP DATA REPOSITORY: All CT scans at this facility are submitted to the National Radiology Data Registry (NRDR) Dose Index Registry (DIR) with the [employer] (ACR). RADIATION OPTIMIZATION: All CT scans at this facility use at least one of these dose optimization techniques: automated exposure control; mA and/or kV adjustment per patient size (includes targeted exams where dose is matched to clinical indication); or iterative reconstruction.
[2024-12-18 02:12] LABS: Troponin I 7 ng/L (<or=51)
--- NOTE | 2024-12-18 02:21 | DI.VRAD_ITS ---
PROCEDURE INFORMATION: Exam: CT Head Without Contrast Exam date and time: 12/18/2024 1:57 AM Age: 54 years old Clinical indication: Altered mental status/memory loss; Confusion or disorientation; AMS, found down TECHNIQUE: Imaging protocol: Computed tomography of the head without contrast. Radiation optimization: All CT scans at this facility use at least one of these dose optimization techniques: automated exposure control; mA and/or kV adjustment per patient size (includes targeted exams where dose is matched to clinical indication); or iterative reconstruction. COMPARISON: CT HEAD WO 12/13/2024 2:21 AM FINDINGS: Brain: Subcentimeter partially calcified anterior superior right frontal meningioma. No brain edema. No intracranial hemorrhage. Cerebral ventricles: No ventriculomegaly. Paranasal sinuses: Visualized sinuses are unremarkable. No fluid levels. Mastoid air cells: Unremarkable. Bones: Unremarkable. No acute fracture. Soft tissues: Unremarkable. IMPRESSION: No acute brain findings. Dictated and Authenticated by: Darrius Vora MD. Orderin St. Arie Watson MD
--- NOTE | 2024-12-18 02:22 | DI.VRAD_ITS ---
PROCEDURE INFORMATION: Exam: XR Right Knee Exam date and time: 12/18/2024 2:15 AM Age: 54 years old Clinical indication: Injury or trauma; Blunt trauma; Injury date: 12/17/24; Injury details: Fall, ETOH, right knee excoriations TECHNIQUE: Imaging protocol: Radiologic exam of the right knee. Views: 3 views. COMPARISON: US EXTREMITY VENOUS BI 07/29/2024 12:46 PM FINDINGS: Bones/joints: Normal. Soft tissues: Normal. IMPRESSION: No acute findings. Dictated and Authenticated by: Darrius Vora MD. Orderin Moe Cespedes MD
[2024-12-18 05:47] LABS: Glucose Negative (Negative)
[2024-12-18 06:07] LABS: Cannabinoids THC Negative (Negative); METHADONE URINE SCREEN Negative (Negative)
== END 2024-12-18 10:25 | disposition home or self-care (01) ==
PROVIDERS: Emergency Medicine; Emergency Provider Student in an Organized Health Care Education/Training Program; PCP Nurse Practitioner
DX: F10.220 Alcohol dependence with intoxication, uncomplicated (principal)
CPT/HCPCS: 99284; 99285; 36415; 36416; 82962; 73562; 80053; 80307; 83690; 86850; 86900; 86901; 93005; 96360; 96361; 70450; 80320; 81003; 83605; 83735; 84484; 85025; 85610; 93010

== ENCOUNTER 2024-12-21 00:27 | Emergency (ER) | payer MEDICAID, SELFPAY ==
[2024-12-21] VITALS (37 sets, daily range): BP systolic 135; BP diastolic 86; PULSE 79–93; RESP 18; TEMP 36.2–36.7; O2SAT 84–100
--- NOTE | 2024-12-21 01:38 | W.ED.GENAD ---
Discharge Plan Discharge Details Chief Complaint: ETOHWithdr Clinical Impression: Alcohol intoxication in active alcoholic Primary Care Provider: Trev Rankin ED Provider: David Warner Home Meds and New Rx's Prescriptions: No Action albuterol sulfate [Ventolin HFA] 90 mcg/actuation HFA aerosol inhaler See Rx Instructions .ROUTE .COMPLEX Qty: 18 12RF Dose Instruction: INHALE TWO PUFFS BY MOUTH EVERY 4 HOURS NEEDED Rx Instructions: INHALE TWO PUFFS BY MOUTH EVERY 4 HOURS NEEDED folic acid 1 mg tablet 1 mg PO DAILY Qty: 30 0RF (DME) Hand Held Nebulizer See Rx Instructions .Route .MEDSUPPLY Qty: 1 0RF Rx Instructions: As directed pantoprazole [Protonix] 40 mg tablet,delayed release (DR/EC) 40 mg PO BID Qty: 60 0RF Spiriva Respimat 1.25 mcg/actuation mist 2 puff inhalation DAILY Qty: 4 12RF Patient Comments: states needs refill topiramate 50 mg tablet 50 mg PO HS Qty: 30 0RF trazodone 50 mg tablet See Rx Instructions .ROUTE .COMPLEX Qty: 135 1RF Dose Instruction: TAKE 1 & 1/2 TABLETS BY MOUTH DAILY AT BEDTIME NEEDED FOR SLEEP Rx Instructions: TAKE 1 & 1/2 TABLETS BY MOUTH DAILY AT BEDTIME NEEDED FOR SLEEP doxepin 25 mg capsule 25 mg PO BID Qty: 180 3RF propranolol 20 mg tablet 20 mg PO BID Qty: 180 3RF gabapentin 300 mg capsule 300 mg PO BID Qty: 180 3RF chlorhexidine gluconate 0.12 % mouthwash 15 ml mucous membrane BID Qty: 900 11RF hydroxyzine HCl 25 mg tablet 25 mg PO TID PRN (Reason: anxiety) Qty: 180 1RF lisinopril 20 mg tablet 20 mg PO DAILY Qty: 90 3RF naltrexone 50 mg tablet 100 mg PO DAILY Qty: 60 2RF (DME) POCKET CHAMBER Spacer See Rx Instructions .ROUTE .MEDSUPPLY Qty: 1 0RF Rx Instructions: As directed quetiapine 100 mg tablet See Rx Instructions .ROUTE .COMPLEX Qty: 135 0RF Dose Instruction: TAKE ONE AND ONE-HALF TABLETS BY MOUTH AT BEDTIME DAILY Rx Instructions: TAKE ONE AND ONE-HALF TABLETS BY MOUTH AT BEDTIME DAILY (DME) nebulizers Misc See Rx Instructions .ROUTE .MEDSUPPLY Qty: 1 0RF Rx Instructions: As directed thiamine HCl (vitamin B1) 100 mg tablet 100 mg PO DAILY Patient Comments: TAKE ONE TABLET BY MOUTH EVERY DAY ipratropium-albuterol 0.5 mg-3 mg(2.5 mg base)/3 mL Solution For Nebulization 3 ml UPD Q6H PRN (Reason: Wheezing) Qty: 24 2RF budesonide-formoterol [Symbicort] 160-4.5 mcg/actuation Hfa Aerosol Inhaler 2 puff inhalation BID Qty: 1 2RF citalopram 40 mg tablet 40 mg PO DAILY Patient Comments: TAKE ONE TABLET BY MOUTH EVERY DAY Discharge Instructions Instructions: Alcohol Intoxication ED Additional Instructions: When you were ready to deal with your alcohol misuse disorder, seek help from community organizations that can provide you with assistance like AA or [facility]. Most often, alcoholism occurs in combination with an underlying behavioral health problem like depression or anxiety. Dealing with your underlying behavioral health problem will help you to deal with your alcohol misuse disorder. You can always return to the ER for any new concerns or sudden changes in medical antibiotic or emergency attention. HPI General Date/Time Provider Initiated Documentation: 12/21/24 01:08. HPI Narrative: The patient is a 54-year-old female, with a past medical history significant for alcoholism and its sequela, who presents to the emergency department this evening with alcohol intoxication. The patient was [place] Police called EMS and the patient blew an alcohol level of higher than 0.2 on the breathalyzer. She was clinically intoxicated and was somewhat belligerent at the scene. EMS transported the patient to the emergency room for evaluation and observation. On arrival to the emergency room the patient continues to be quite belligerent. Shortly after she was placed in the bed, she fell asleep and has been sleeping comfortably since that time. The patient was mildly hypoxic on arrival to the emergency room and was placed on some supplemental oxygen and an oxygen saturation monitor by nursing. Related Data Home Medications Medication Instructions Recorded Confirmed inhalational spacing device #1 ea 09/28/20 12/19/24 (POCKET CHAMBER spacer) nebulizers #1 ea 03/16/21 12/19/24 Hand Held Nebulizer #1 ea 06/21/24 12/19/24 albuterol sulfate 90 mcg/actuation See Rx Instructions .Route 06/21/24 12/19/24 aerosol inhaler (Ventolin HFA) .COMPLEX #18 grams folic acid 1 mg tablet 1 mg PO DAILY #30 tabs 06/21/24 12/19/24 thiamine HCl (vitamin B1) 100 mg 100 mg PO DAILY 07/24/24 12/19/24 tablet budesonide-formoterol HFA 160 2 puff inhalation BID #1 inh 07/27/24 12/19/24 mcg-4.5 mcg/actuation aerosol inhaler (Symbicort) ipratropium 0.5 mg-albuterol 3 mg 3 ml UPD Q6H PRN Wheezing #24 pkgs 07/27/24 12/19/24 (2.5 mg base)/3 mL nebulization soln quetiapine 100 mg tablet See Rx Instructions .Route 10/17/24 12/19/24 .COMPLEX #135 tabs chlorhexidine gluconate 0.12 % 15 ml mucous membrane BID #900 mL 10/30/24 12/19/24 mouthwash doxepin 25 mg capsule 25 mg PO BID #180 caps 10/30/24 12/19/24 gabapentin 300 mg capsule 300 mg PO BID #180 caps 10/30/24 12/19/24 pantoprazole 40 mg tablet,delayed 40 mg PO BID #60 tabs 10/30/24 12/19/24 release (Protonix) propranolol 20 mg tablet 20 mg PO BID #180 tabs 10/30/24 12/19/24 tiotropium bromide 1.25 2 puff inhalation DAILY #4 grams 10/30/24 12/19/24 mcg/actuation mist for inhalation (Spiriva Respimat) topiramate 50 mg tablet 50 mg PO HS #30 tabs 10/30/24 12/19/24 trazodone 50 mg tablet See Rx Instructions .Route 10/30/24 12/19/24 .COMPLEX #135 tabs citalopram 40 mg tablet 40 mg PO DAILY 12/13/24 12/19/24 hydroxyzine HCl 25 mg tablet 25 mg PO TID PRN anxiety #180 tabs 12/19/24 12/19/24 lisinopril 20 mg tablet 20 mg PO DAILY #90 tab-caps 12/19/24 12/19/24 naltrexone 50 mg tablet 100 mg (2 x 50 mg) PO DAILY #60 12/19/24 12/19/24 tabs Previous Rx's Medication Instructions Recorded inhalational spacing device #1 ea 09/28/20 (POCKET CHAMBER spacer) nebulizers #1 ea 03/16/21 Hand Held Nebulizer #1 ea 06/21/24 albuterol sulfate 90 mcg/actuation See Rx Instructions .Route 06/21/24 aerosol inhaler (Ventolin HFA) .COMPLEX #18 grams folic acid 1 mg tablet 1 mg PO DAILY #30 tabs 06/21/24 budesonide-formoterol HFA 160 2 puff inhalation BID #1 inh 07/27/24 mcg-4.5 mcg/actuation aerosol inhaler (Symbicort) ipratropium 0.5 mg-albuterol 3 mg 3 ml UPD Q6H PRN Wheezing #24 pkgs 07/27/24 (2.5 mg base)/3 mL nebulization soln quetiapine 100 mg tablet See Rx Instructions .Route 10/17/24 .COMPLEX #135 tabs chlorhexidine gluconate 0.12 % 15 ml mucous membrane BID #900 mL 10/30/24 mouthwash doxepin 25 mg capsule 25 mg PO BID #180 caps 10/30/24 gabapentin 300 mg capsule 300 mg PO BID #180 caps 10/30/24 pantoprazole 40 mg tablet,delayed 40 mg PO BID #60 tabs 10/30/24 release (Protonix) propranolol 20 mg tablet 20 mg PO BID #180 tabs 10/30/24 tiotropium bromide 1.25 2 puff inhalation DAILY #4 grams 10/30/24 mcg/actuation mist for inhalation (Spiriva Respimat) topiramate 50 mg tablet 50 mg PO HS #30 tabs 10/30/24 trazodone 50 mg tablet See Rx Instructions .Route 10/30/24 .COMPLEX #135 tabs hydroxyzine HCl 25 mg tablet 25 mg PO TID PRN anxiety #180 tabs 12/19/24 lisinopril 20 mg tablet 20 mg PO DAILY #90 tab-caps 12/19/24 naltrexone 50 mg tablet 100 mg (2 x 50 mg) PO DAILY #60 12/19/24 tabs Allergies Allergy/AdvReac Type Severity Reaction Status Date / Time hydromorphone (From Dilaudid) Allergy Severe Itching Verified 12/21/24 00:32 oxycodone AdvReac Unknown TERRIBLE Verified 12/21/24 00:32 DREAMS General Stated Complaint: ETOHWithdr ALISTAIR: 3 Exam Const General: no acute distress Orientation: confused Other: Alcoholic halitosis HENMT Head: other (1 x 2 cm abrasion to the right forehead with granulation (appears chronic)) General nose exam: external nose normal and no nasal discharge Face and sinus: normal facial exam and face symmetric Mouth: oral mucosae normal Neck Neck: full ROM and trachea midline Resp Effort & Inspection: normal respiratory effort, no cough and no respiratory distress Auscultation: clear to auscultation bilaterally Cardio Rate: regular rate Rhythm: regular rhythm and abnormal rhythm Heart Sounds: S1 normal and S2 normal GI Palpation: soft Auscultation: normal bowel sounds Neuro General: moves all extremities and patient confused Cranial Nerves: CN's II-XI intact bilaterally Speech: abnormal speech slurred Gait: ataxic Course Vital Signs Vital signs: Vital Signs Temperature 36.2 C L 12/21/24 00:25 Pulse 92 H 12/21/24 00:25 Respiratory Rate 18 12/21/24 00:25 Blood Pressure 135/86 12/21/24 00:25 Pulse Oximetry 88 L 12/21/24 00:25 Temperature 36.2 C L 12/21/24 00:25 Temperature Source Tympanic 12/21/24 00:25 Pulse 92 H 12/21/24 00:25 Respiratory Rate 18 12/21/24 00:25 Respiratory Pattern Normal 12/21/24 00:29 Blood Pressure 135/86 12/21/24 00:25 Pulse Oximetry 88 L 12/21/24 00:25 Oxygen Delivery Method Room Air 12/21/24 00:25 Oxygen Flow Rate 0 12/21/24 00:25 Medical Decision Making The patient was seen and examined. She is quite intoxicated here in the emergency room and was initially belligerent but fell asleep and has been sleeping comfortably with supplemental oxygen since that time. The patient was seen in the emergency room just a few days ago with a similar presentation in which she ultimately cleared her sensorium and was discharged home. The patient has a abrasion on the forehead that appears chronic in nature and not acute. There do not appear to be any other acute injuries at this time. Based on the history provided, there was no traumatic event leading up to the patient the evaluated the emergency room today. The patient will be observed for improved sensorium and discharged when she is more sober. Quality:SDOH Health Related Social Needs: Health related social needs material hardship house/econ circumstance Health related social needs details homeless PFSH All Active Problems (Updated 12/21/24 @ 06:15 by David Warner MD) Tick bite (Acute) Pancreatic pseudocyst (Acute) Meningioma (Acute) Altered mental status (Acute) Acidosis (Acute) Alcohol intoxication (Acute) Alcohol dependence (Acute) COVID-19 virus infection (Acute) COVID (Acute) Alcohol use disorder in remission (Acute) Anemia (Chronic) Alcohol intoxication in active alcoholic (Acute) CKD (chronic kidney disease) (Chronic) Anemia (Chronic) Depression with anxiety (Chronic) Abdominal fluid collection (Acute) Dyslipidemia (Acute) Abdominal pain, chronic, left upper quadrant (Acute) Chronic upper gastrointestinal bleeding (Chronic) Cyst and pseudocyst of pancreas (Acute) Anxiety (Chronic) DUB (dysfunctional uterine bleeding) (Acute) Impaired fasting blood sugar (Acute 08/01/05) Obesity, unspecified (Acute 05/31/11) Atypical squamous cells of undetermined significance (ASC-US) on cervical Pap smear (Acute 08/05/09) ASCUS 08/05/09; 05/31/2011 Spinal stenosis of lumbar region (Acute 01/11/10) LS spine surg; Dr Sebastian Walker Tobacco dependence (Acute 08/01/05) Medical History Pulmonary embolus Helicobacter pylori (H. pylori) Chronic pain (02/20/09) chronic tramadol rx, back pain, sciatica despite LS surg 2009. Depression (04/03/15) Sertaline in the past with good relief of sx but then developed intolerable adverse rxns (nausea, flushing) Started on venlafaxine 03/2015 PHQ9 score = 9, indicating mild depression 03/2015 Anemia COPD (chronic obstructive pulmonary disease) HTN (hypertension), benign Spinal stenosis Lumbar region Surgical History History of esophagogastroduodenoscopy (EGD) (~08/05/24) w bx. per report-negative for H.Pylori Internal injury, spleen, closed with IR embolization Back surgery L5-S1 decompression 2009 Family History Mother , lung cancer at age 50. No problems noted. Father , MVA No problems noted. Other Lung cancer Social History Smoking/Tobacco Use Status: Current every day Tobacco Type: cigarettes Smoking risk assessment performed?: Yes Alcohol Intake: current Alcohol Intake frequency: 0-2 drinks per day Alcohol type: beer and hard liquor Drug use: Never Substance use type: does not use Housing: homeless Do you feel safe at home: Yes Do you feel safe in your relationship?: Yes PAWSS Have you Been Recently Intoxicated or Drunk Within the Last 30 days?: Yes Have you Ever Experienced Previous Episodes of Alcohol Withdrawal?: No Have you ever Experienced Withdrawal Seizures?: No Have you ever Experienced Delirium Tremens(DT)s?: No Have you ever undergone Alcohol Rehabilitation Treatment (i.e, inpt ot outpatient treatment programs)?: Yes Have you ever Experienced Blackouts?: Yes Have you ever Combined Alcohol with other Downers within the last 90 days?: No Have you ever Combined Alcohol with any other Substance of Abuse during the last 90 days?: No Positive Blood Alcohol level on Presentation? [PCS.BAL]: No Evidence of Increased Autonomic Activity (i.e. HR>120, tremor, sweating, agitation, nausea)?: No Result: 3
--- NOTE | 2024-12-21 07:01 | W.EDPROG ---
Date of service: 12/21/24 Time of Service: 07:00 Medical Decision Making In brief, this is a 54-year-old female patient who was brought in by police after being found intoxicated, sleeping in her car, who was evaluated by the prior provider and was metabolizing awaiting sobriety for safe discharge. I reevaluated the patient, who woke up easily, was not requiring any supplemental oxygen, and to reports other than generally feeling bad that she is in her normal state of health. She does request a Tylenol for a headache, which was provided. The patient tolerated a meal and had reassuring vital signs. She was ambulatory, and at this time, the patient has had a full medical evaluation and is safe for discharge to home. They are hemodynamically stable, ambulatory, and tolerating PO. They are understanding of the follow-up plan and return precautions. They left our facility without incident. Shirley Marquez MD Quality:SDOH Health Related Social Needs: Health related social needs material hardship house/econ circumstance Health related social needs details homeless Discharge Plan Disposition Patient Disposition: Home Condition: Stable Discharge Details Clinical Impression: Alcohol intoxication in active alcoholic Primary Care Provider: Trev Rankin ED Provider: Shirley Marquez Home Meds and New Rx's Prescriptions: No Action albuterol sulfate [Ventolin HFA] 90 mcg/actuation HFA aerosol inhaler See Rx Instructions .ROUTE .COMPLEX Qty: 18 12RF Dose Instruction: INHALE TWO PUFFS BY MOUTH EVERY 4 HOURS NEEDED Rx Instructions: INHALE TWO PUFFS BY MOUTH EVERY 4 HOURS NEEDED folic acid 1 mg tablet 1 mg PO DAILY Qty: 30 0RF (DME) Hand Held Nebulizer See Rx Instructions .Route .MEDSUPPLY Qty: 1 0RF Rx Instructions: As directed pantoprazole [Protonix] 40 mg tablet,delayed release (DR/EC) 40 mg PO BID Qty: 60 0RF Spiriva Respimat 1.25 mcg/actuation mist 2 puff inhalation DAILY Qty: 4 12RF Patient Comments: states needs refill topiramate 50 mg tablet 50 mg PO HS Qty: 30 0RF trazodone 50 mg tablet See Rx Instructions .ROUTE .COMPLEX Qty: 135 1RF Dose Instruction: TAKE 1 & 1/2 TABLETS BY MOUTH DAILY AT BEDTIME NEEDED FOR SLEEP Rx Instructions: TAKE 1 & 1/2 TABLETS BY MOUTH DAILY AT BEDTIME NEEDED FOR SLEEP doxepin 25 mg capsule 25 mg PO BID Qty: 180 3RF propranolol 20 mg tablet 20 mg PO BID Qty: 180 3RF gabapentin 300 mg capsule 300 mg PO BID Qty: 180 3RF chlorhexidine gluconate 0.12 % mouthwash 15 ml mucous membrane BID Qty: 900 11RF hydroxyzine HCl 25 mg tablet 25 mg PO TID PRN (Reason: anxiety) Qty: 180 1RF lisinopril 20 mg tablet 20 mg PO DAILY Qty: 90 3RF naltrexone 50 mg tablet 100 mg PO DAILY Qty: 60 2RF (DME) POCKET CHAMBER Spacer See Rx Instructions .ROUTE .MEDSUPPLY Qty: 1 0RF Rx Instructions: As directed quetiapine 100 mg tablet See Rx Instructions .ROUTE .COMPLEX Qty: 135 0RF Dose Instruction: TAKE ONE AND ONE-HALF TABLETS BY MOUTH AT BEDTIME DAILY Rx Instructions: TAKE ONE AND ONE-HALF TABLETS BY MOUTH AT BEDTIME DAILY (DME) nebulizers Misc See Rx Instructions .ROUTE .MEDSUPPLY Qty: 1 0RF Rx Instructions: As directed thiamine HCl (vitamin B1) 100 mg tablet 100 mg PO DAILY Patient Comments: TAKE ONE TABLET BY MOUTH EVERY DAY ipratropium-albuterol 0.5 mg-3 mg(2.5 mg base)/3 mL Solution For Nebulization 3 ml UPD Q6H PRN (Reason: Wheezing) Qty: 24 2RF budesonide-formoterol [Symbicort] 160-4.5 mcg/actuation Hfa Aerosol Inhaler 2 puff inhalation BID Qty: 1 2RF citalopram 40 mg tablet 40 mg PO DAILY Patient Comments: TAKE ONE TABLET BY MOUTH EVERY DAY Discharge Instructions Instructions: Alcohol Intoxication ED Additional Instructions: You were seen in the emergency department last night for your safety in the setting of alcohol intoxication. You were monitored overnight to ensure that you were stable, and attained sobriety in the emergency department. When you were ready to deal with your alcohol misuse disorder, seek help from community organizations that can provide you with assistance like AA or [facility]. Most often, alcoholism occurs in combination with an underlying behavioral health problem like depression or anxiety. Dealing with your underlying behavioral health problem will help you to deal with your alcohol misuse disorder. You can always return to the ER for any new concerns or sudden changes or emergency attention. Thank you for allowing us to be part of your care
[2024-12-21] MEDS: Acetaminophen 500 MG TAB 1000 MG PO (09:24)
== END 2024-12-21 09:29 | disposition home or self-care (01) ==
PROVIDERS: Emergency Provider Emergency Medicine
DX: F10.129 Alcohol abuse with intoxication, unspecified (principal); Z59.00 Homelessness unspecified; Z59.89 Other problems related to housing and economic circumstances
CPT/HCPCS: 99283; 99285; 00123

== ENCOUNTER 2024-12-26 02:06 | Emergency (ER) | payer MEDICAID, SELFPAY ==
[2024-12-26 02:03] VITALS: BP 95/77; PULSE 68; RESP 18; TEMP 36; O2SAT 94
--- NOTE | 2024-12-26 02:10 | W.ED.GENAD ---
Discharge Plan Disposition Patient Disposition: Home Condition: Good Discharge Details Clinical Impression: Alcohol intoxication in active alcoholic Primary Care Provider: Trev Rankin ED Provider: Elio Navarrete Meds and New Rx's Prescriptions: No Action albuterol sulfate [Ventolin HFA] 90 mcg/actuation HFA aerosol inhaler See Rx Instructions .ROUTE .COMPLEX Qty: 18 12RF Dose Instruction: INHALE TWO PUFFS BY MOUTH EVERY 4 HOURS NEEDED Rx Instructions: INHALE TWO PUFFS BY MOUTH EVERY 4 HOURS NEEDED folic acid 1 mg tablet 1 mg PO DAILY Qty: 30 0RF (DME) Hand Held Nebulizer See Rx Instructions .Route .MEDSUPPLY Qty: 1 0RF Rx Instructions: As directed pantoprazole [Protonix] 40 mg tablet,delayed release (DR/EC) 40 mg PO BID Qty: 60 0RF Spiriva Respimat 1.25 mcg/actuation mist 2 puff inhalation DAILY Qty: 4 12RF Patient Comments: states needs refill topiramate 50 mg tablet 50 mg PO HS Qty: 30 0RF trazodone 50 mg tablet See Rx Instructions .ROUTE .COMPLEX Qty: 135 1RF Dose Instruction: TAKE 1 & 1/2 TABLETS BY MOUTH DAILY AT BEDTIME NEEDED FOR SLEEP Rx Instructions: TAKE 1 & 1/2 TABLETS BY MOUTH DAILY AT BEDTIME NEEDED FOR SLEEP doxepin 25 mg capsule 25 mg PO BID Qty: 180 3RF propranolol 20 mg tablet 20 mg PO BID Qty: 180 3RF gabapentin 300 mg capsule 300 mg PO BID Qty: 180 3RF chlorhexidine gluconate 0.12 % mouthwash 15 ml mucous membrane BID Qty: 900 11RF hydroxyzine HCl 25 mg tablet 25 mg PO TID PRN (Reason: anxiety) Qty: 180 1RF lisinopril 20 mg tablet 20 mg PO DAILY Qty: 90 3RF naltrexone 50 mg tablet 100 mg PO DAILY Qty: 60 2RF (DME) POCKET CHAMBER Spacer See Rx Instructions .ROUTE .MEDSUPPLY Qty: 1 0RF Rx Instructions: As directed quetiapine 100 mg tablet See Rx Instructions .ROUTE .COMPLEX Qty: 135 0RF Dose Instruction: TAKE ONE AND ONE-HALF TABLETS BY MOUTH AT BEDTIME DAILY Rx Instructions: TAKE ONE AND ONE-HALF TABLETS BY MOUTH AT BEDTIME DAILY (DME) nebulizers Misc See Rx Instructions .ROUTE .MEDSUPPLY Qty: 1 0RF Rx Instructions: As directed thiamine HCl (vitamin B1) 100 mg tablet 100 mg PO DAILY Patient Comments: TAKE ONE TABLET BY MOUTH EVERY DAY ipratropium-albuterol 0.5 mg-3 mg(2.5 mg base)/3 mL Solution For Nebulization 3 ml UPD Q6H PRN (Reason: Wheezing) Qty: 24 2RF budesonide-formoterol [Symbicort] 160-4.5 mcg/actuation Hfa Aerosol Inhaler 2 puff inhalation BID Qty: 1 2RF citalopram 40 mg tablet 40 mg PO DAILY Patient Comments: TAKE ONE TABLET BY MOUTH EVERY DAY Discharge Instructions Instructions: Alcohol Use Disorder ED Additional Instructions: You were brought to the ED after being found outside intoxicated. There are programs available to you if you want to stop drinking. Avoid excessive drinking. Stand Alone Forms: Portal Information HPI General Mode of arrival: EMS. Date/Time Provider Initiated Documentation: 12/26/24 02:10. Limitations to Documentation: no limitations. Information obtained by: patient, EMS and RN notes reviewed. HPI Narrative: Patient brought in by EMS after police found her outside intoxicated. Patient has been here a few times recently with same. She is asleep but awakens easily, goes back to sleep. She denies any complaints to me, denies pain and denies SOB. Related Data Home Medications Medication Instructions Recorded Confirmed inhalational spacing device #1 ea 09/28/20 12/19/24 (POCKET CHAMBER spacer) nebulizers #1 ea 03/16/21 12/19/24 Hand Held Nebulizer #1 ea 06/21/24 12/19/24 albuterol sulfate 90 mcg/actuation See Rx Instructions .Route 06/21/24 12/19/24 aerosol inhaler (Ventolin HFA) .COMPLEX #18 grams folic acid 1 mg tablet 1 mg PO DAILY #30 tabs 06/21/24 12/19/24 thiamine HCl (vitamin B1) 100 mg 100 mg PO DAILY 07/24/24 12/19/24 tablet budesonide-formoterol HFA 160 2 puff inhalation BID #1 inh 07/27/24 12/19/24 mcg-4.5 mcg/actuation aerosol inhaler (Symbicort) ipratropium 0.5 mg-albuterol 3 mg 3 ml UPD Q6H PRN Wheezing #24 pkgs 07/27/24 12/19/24 (2.5 mg base)/3 mL nebulization soln quetiapine 100 mg tablet See Rx Instructions .Route 10/17/24 12/19/24 .COMPLEX #135 tabs chlorhexidine gluconate 0.12 % 15 ml mucous membrane BID #900 mL 10/30/24 12/19/24 mouthwash doxepin 25 mg capsule 25 mg PO BID #180 caps 10/30/24 12/19/24 gabapentin 300 mg capsule 300 mg PO BID #180 caps 10/30/24 12/19/24 pantoprazole 40 mg tablet,delayed 40 mg PO BID #60 tabs 10/30/24 12/19/24 release (Protonix) propranolol 20 mg tablet 20 mg PO BID #180 tabs 10/30/24 12/19/24 tiotropium bromide 1.25 2 puff inhalation DAILY #4 grams 10/30/24 12/19/24 mcg/actuation mist for inhalation (Spiriva Respimat) topiramate 50 mg tablet 50 mg PO HS #30 tabs 10/30/24 12/19/24 trazodone 50 mg tablet See Rx Instructions .Route 10/30/24 12/19/24 .COMPLEX #135 tabs citalopram 40 mg tablet 40 mg PO DAILY 12/13/24 12/19/24 hydroxyzine HCl 25 mg tablet 25 mg PO TID PRN anxiety #180 tabs 12/19/24 12/19/24 lisinopril 20 mg tablet 20 mg PO DAILY #90 tab-caps 12/19/24 12/19/24 naltrexone 50 mg tablet 100 mg (2 x 50 mg) PO DAILY #60 12/19/24 12/19/24 tabs Previous Rx's Medication Instructions Recorded inhalational spacing device #1 ea 09/28/20 (POCKET CHAMBER spacer) nebulizers #1 ea 03/16/21 Hand Held Nebulizer #1 ea 06/21/24 albuterol sulfate 90 mcg/actuation See Rx Instructions .Route 06/21/24 aerosol inhaler (Ventolin HFA) .COMPLEX #18 grams folic acid 1 mg tablet 1 mg PO DAILY #30 tabs 06/21/24 budesonide-formoterol HFA 160 2 puff inhalation BID #1 inh 07/27/24 mcg-4.5 mcg/actuation aerosol inhaler (Symbicort) ipratropium 0.5 mg-albuterol 3 mg 3 ml UPD Q6H PRN Wheezing #24 pkgs 07/27/24 (2.5 mg base)/3 mL nebulization soln quetiapine 100 mg tablet See Rx Instructions .Route 10/17/24 .COMPLEX #135 tabs chlorhexidine gluconate 0.12 % 15 ml mucous membrane BID #900 mL 10/30/24 mouthwash doxepin 25 mg capsule 25 mg PO BID #180 caps 10/30/24 gabapentin 300 mg capsule 300 mg PO BID #180 caps 10/30/24 pantoprazole 40 mg tablet,delayed 40 mg PO BID #60 tabs 10/30/24 release (Protonix) propranolol 20 mg tablet 20 mg PO BID #180 tabs 10/30/24 tiotropium bromide 1.25 2 puff inhalation DAILY #4 grams 10/30/24 mcg/actuation mist for inhalation (Spiriva Respimat) topiramate 50 mg tablet 50 mg PO HS #30 tabs 10/30/24 trazodone 50 mg tablet See Rx Instructions .Route 10/30/24 .COMPLEX #135 tabs hydroxyzine HCl 25 mg tablet 25 mg PO TID PRN anxiety #180 tabs 12/19/24 lisinopril 20 mg tablet 20 mg PO DAILY #90 tab-caps 12/19/24 naltrexone 50 mg tablet 100 mg (2 x 50 mg) PO DAILY #60 12/19/24 tabs Allergies Allergy/AdvReac Type Severity Reaction Status Date / Time hydromorphone (From Dilaudid) Allergy Severe Itching Verified 12/21/24 00:32 oxycodone AdvReac Unknown TERRIBLE Verified 12/21/24 00:32 DREAMS General Stated Complaint: ETOHWithdr ALISTAIR: 3 Exam Narrative Exam Narrative: Const: Obese female in NAD. VS per triage. HEENT: NC/AT. Neck: Supple. Trachea midline. Lungs: Normal respiratory effort. Lungs with some diffuse rhonchi. Cor: RRR without murmur. Neuro: Asleep but awakens to voice, slurred speech. Cranial nerves II - XII grossly intact. No gross motor or sensory deficit. Course Vital Signs Vital signs: Vital Signs Temperature 96.8 F L 12/26/24 02:03 Pulse 68 12/26/24 02:03 Respiratory Rate 18 12/26/24 02:03 Blood Pressure 95/77 L 12/26/24 02:03 Pulse Oximetry 94 12/26/24 02:03 Temperature 96.8 F L 12/26/24 02:03 Temperature Source Temporal Artery Scan 12/26/24 02:03 Pulse 68 12/26/24 02:03 Respiratory Rate 18 12/26/24 02:03 Blood Pressure 95/77 L 12/26/24 02:03 Pulse Oximetry 94 12/26/24 02:03 Pain Level 0 12/26/24 02:03 Medical Decision Making Patient here with alcohol intoxication after being found outside in the cold by police. Will observe until clinically sober. Check glucose. Glucose was fine. She has been up to the bathroom. Mental status is improved. Plan discharge this morning. Quality:SDOH Health Related Social Needs: Health related social needs material hardship house/econ circumstance Health related social needs details homeless PFSH All Active Problems (Updated 12/26/24 @ 06:54 by Elio Navarrete MD) Pancreatic pseudocyst (Acute) Meningioma (Acute) Altered mental status (Acute) Acidosis (Acute) Alcohol dependence (Acute) Anemia (Chronic) Alcohol intoxication in active alcoholic (Acute) CKD (chronic kidney disease) (Chronic) Anemia (Chronic) Depression with anxiety (Chronic) Abdominal fluid collection (Acute) Dyslipidemia (Acute) Abdominal pain, chronic, left upper quadrant (Acute) Chronic upper gastrointestinal bleeding (Chronic) Cyst and pseudocyst of pancreas (Acute) Anxiety (Chronic) DUB (dysfunctional uterine bleeding) (Acute) Impaired fasting blood sugar (Acute 08/01/05) Obesity, unspecified (Acute 05/31/11) Atypical squamous cells of undetermined significance (ASC-US) on cervical Pap smear (Acute 08/05/09) ASCUS 08/05/09; 05/31/2011 Spinal stenosis of lumbar region (Acute 01/11/10) LS spine surg; Dr Sebastian Walker Tobacco dependence (Acute 08/01/05) Medical History Pulmonary embolus Helicobacter pylori (H. pylori) Chronic pain (02/20/09) chronic tramadol rx, back pain, sciatica despite LS surg 2009. Depression (04/03/15) Sertaline in the past with good relief of sx but then developed intolerable adverse rxns (nausea, flushing) Started on venlafaxine 03/2015 PHQ9 score = 9, indicating mild depression 03/2015 Anemia COPD (chronic obstructive pulmonary disease) HTN (hypertension), benign Spinal stenosis Lumbar region Surgical History History of esophagogastroduodenoscopy (EGD) (~08/05/24) w bx. per report-negative for H.Pylori Internal injury, spleen, closed with IR embolization Back surgery L5-S1 decompression 2009 Family History Mother , lung cancer at age 50. No problems noted. Father , MVA No problems noted. Other Lung cancer Social History Smoking/Tobacco Use Status: Current every day Tobacco Type: cigarettes Smoking risk assessment performed?: Yes Alcohol Intake: current Alcohol Intake frequency: 0-2 drinks per day Alcohol type: beer and hard liquor Drug use: Never Substance use type: does not use Housing: homeless Do you feel safe at home: Yes Do you feel safe in your relationship?: Yes
== END 2024-12-26 07:10 | disposition home or self-care (01) ==
PROVIDERS: Emergency Provider Emergency Medicine
DX: F10.920 Alcohol use, unspecified with intoxication, uncomplicated (principal); Z59.87 Material hardship due to limited financial resources, not elsewhere classified
CPT/HCPCS: 99283; 99282; 36416; 82962

== ENCOUNTER 2024-12-26 14:34 | Emergency (ER) | payer MEDICAID, SELFPAY ==
[2024-12-26 14:32] VITALS: BP 132/75; PULSE 93; RESP 20; TEMP 37.1; O2SAT 92
--- NOTE | 2024-12-26 14:39 | W.ED.GENAD ---
Discharge Plan Disposition Patient Disposition: Home Condition: Good Discharge Details Clinical Impression: Alcohol intoxication Primary Care Provider: Trev Rankin ED Provider: Coy Rosa Home Meds and New Rx's Prescriptions: No Action albuterol sulfate [Ventolin HFA] 90 mcg/actuation HFA aerosol inhaler See Rx Instructions .ROUTE .COMPLEX Qty: 18 12RF Dose Instruction: INHALE TWO PUFFS BY MOUTH EVERY 4 HOURS NEEDED Rx Instructions: INHALE TWO PUFFS BY MOUTH EVERY 4 HOURS NEEDED folic acid 1 mg tablet 1 mg PO DAILY Qty: 30 0RF (DME) Hand Held Nebulizer See Rx Instructions .Route .MEDSUPPLY Qty: 1 0RF Rx Instructions: As directed pantoprazole [Protonix] 40 mg tablet,delayed release (DR/EC) 40 mg PO BID Qty: 60 0RF Spiriva Respimat 1.25 mcg/actuation mist 2 puff inhalation DAILY Qty: 4 12RF Patient Comments: states needs refill topiramate 50 mg tablet 50 mg PO HS Qty: 30 0RF trazodone 50 mg tablet See Rx Instructions .ROUTE .COMPLEX Qty: 135 1RF Dose Instruction: TAKE 1 & 1/2 TABLETS BY MOUTH DAILY AT BEDTIME NEEDED FOR SLEEP Rx Instructions: TAKE 1 & 1/2 TABLETS BY MOUTH DAILY AT BEDTIME NEEDED FOR SLEEP doxepin 25 mg capsule 25 mg PO BID Qty: 180 3RF propranolol 20 mg tablet 20 mg PO BID Qty: 180 3RF gabapentin 300 mg capsule 300 mg PO BID Qty: 180 3RF chlorhexidine gluconate 0.12 % mouthwash 15 ml mucous membrane BID Qty: 900 11RF hydroxyzine HCl 25 mg tablet 25 mg PO TID PRN (Reason: anxiety) Qty: 180 1RF lisinopril 20 mg tablet 20 mg PO DAILY Qty: 90 3RF naltrexone 50 mg tablet 100 mg PO DAILY Qty: 60 2RF (DME) POCKET CHAMBER Spacer See Rx Instructions .ROUTE .MEDSUPPLY Qty: 1 0RF Rx Instructions: As directed quetiapine 100 mg tablet See Rx Instructions .ROUTE .COMPLEX Qty: 135 0RF Dose Instruction: TAKE ONE AND ONE-HALF TABLETS BY MOUTH AT BEDTIME DAILY Rx Instructions: TAKE ONE AND ONE-HALF TABLETS BY MOUTH AT BEDTIME DAILY (DME) nebulizers Misc See Rx Instructions .ROUTE .MEDSUPPLY Qty: 1 0RF Rx Instructions: As directed thiamine HCl (vitamin B1) 100 mg tablet 100 mg PO DAILY Patient Comments: TAKE ONE TABLET BY MOUTH EVERY DAY ipratropium-albuterol 0.5 mg-3 mg(2.5 mg base)/3 mL Solution For Nebulization 3 ml UPD Q6H PRN (Reason: Wheezing) Qty: 24 2RF budesonide-formoterol [Symbicort] 160-4.5 mcg/actuation Hfa Aerosol Inhaler 2 puff inhalation BID Qty: 1 2RF citalopram 40 mg tablet 40 mg PO DAILY Patient Comments: TAKE ONE TABLET BY MOUTH EVERY DAY Discharge Instructions Additional Instructions: At this time there is no evidence of acute life-threatening etiology going on on your exam. Your vital signs are stable. Please cut down on your alcohol intake as best you are able to. You have been provided with outpatient resources to help with this. If you notice any worsening of your symptoms, or any new symptoms such as vomiting, diarrhea, fever, chills, shortness of breath, chest pain, numbness, weakness, or fainting , please return immediately to the emergency department for reevaluation. Please follow up with your primary care provider as soon as possible for reassessment and reevaluation. As always, it was a pleasure participating in your medical care today. Stand Alone Forms: Portal Information HPI General Date/Time Provider Initiated Documentation: 12/26/24 14:39. HPI Narrative: This is a 54-year-old female with a past medical history of previous pulmonary embolism not anticoagulated, Helicobacter pylori, GERD, depression, COPD, hyper pretension, spinal stenosis, history of pancreatic pseudocyst and chronic alcoholism, chronic kidney disease, previous anemia, who presents today for intoxication. Patient has been here in the emergency department 6 times in the last 2 weeks for alcohol intoxication. She has had multiple workups. Most recent visit was earlier this morning where she was seen and assessed by my colleague Dr. Navarrete. She was medically cleared at that time, she achieved sobriety and was discharged home. She then went out and smoked and drank. She was found at the carpool area, intoxicated in her vehicle. 1 was contacted, police and EMS arrived with [facility] and she was brought to the ER for evaluation and medical clearance. Patient denies any homicidal or suicidal ideations. She admits to drinking alcohol. She denies any drug use. She denies any chest pain or shortness of breath or vomiting or diarrhea. No other complaints at this time. Related Data Home Medications Medication Instructions Recorded Confirmed inhalational spacing device #1 ea 09/28/20 12/26/24 (POCKET CHAMBER spacer) nebulizers #1 ea 03/16/21 12/26/24 Hand Held Nebulizer #1 ea 06/21/24 12/26/24 albuterol sulfate 90 mcg/actuation See Rx Instructions .Route 06/21/24 12/26/24 aerosol inhaler (Ventolin HFA) .COMPLEX #18 grams folic acid 1 mg tablet 1 mg PO DAILY #30 tabs 06/21/24 12/26/24 thiamine HCl (vitamin B1) 100 mg 100 mg PO DAILY 07/24/24 12/26/24 tablet budesonide-formoterol HFA 160 2 puff inhalation BID #1 inh 07/27/24 12/26/24 mcg-4.5 mcg/actuation aerosol inhaler (Symbicort) ipratropium 0.5 mg-albuterol 3 mg 3 ml UPD Q6H PRN Wheezing #24 pkgs 07/27/24 12/26/24 (2.5 mg base)/3 mL nebulization soln quetiapine 100 mg tablet See Rx Instructions .Route 10/17/24 12/26/24 .COMPLEX #135 tabs chlorhexidine gluconate 0.12 % 15 ml mucous membrane BID #900 mL 10/30/24 12/26/24 mouthwash doxepin 25 mg capsule 25 mg PO BID #180 caps 10/30/24 12/26/24 gabapentin 300 mg capsule 300 mg PO BID #180 caps 10/30/24 12/26/24 pantoprazole 40 mg tablet,delayed 40 mg PO BID #60 tabs 10/30/24 12/26/24 release (Protonix) propranolol 20 mg tablet 20 mg PO BID #180 tabs 10/30/24 12/26/24 tiotropium bromide 1.25 2 puff inhalation DAILY #4 grams 10/30/24 12/26/24 mcg/actuation mist for inhalation (Spiriva Respimat) topiramate 50 mg tablet 50 mg PO HS #30 tabs 10/30/24 12/26/24 trazodone 50 mg tablet See Rx Instructions .Route 10/30/24 12/26/24 .COMPLEX #135 tabs citalopram 40 mg tablet 40 mg PO DAILY 12/13/24 12/26/24 hydroxyzine HCl 25 mg tablet 25 mg PO TID PRN anxiety #180 tabs 12/19/24 12/26/24 lisinopril 20 mg tablet 20 mg PO DAILY #90 tab-caps 12/19/24 12/26/24 naltrexone 50 mg tablet 100 mg (2 x 50 mg) PO DAILY #60 12/19/24 12/26/24 tabs Previous Rx's Medication Instructions Recorded inhalational spacing device #1 ea 09/28/20 (POCKET CHAMBER spacer) nebulizers #1 ea 03/16/21 Hand Held Nebulizer #1 ea 06/21/24 albuterol sulfate 90 mcg/actuation See Rx Instructions .Route 06/21/24 aerosol inhaler (Ventolin HFA) .COMPLEX #18 grams folic acid 1 mg tablet 1 mg PO DAILY #30 tabs 06/21/24 budesonide-formoterol HFA 160 2 puff inhalation BID #1 inh 07/27/24 mcg-4.5 mcg/actuation aerosol inhaler (Symbicort) ipratropium 0.5 mg-albuterol 3 mg 3 ml UPD Q6H PRN Wheezing #24 pkgs 07/27/24 (2.5 mg base)/3 mL nebulization soln quetiapine 100 mg tablet See Rx Instructions .Route 10/17/24 .COMPLEX #135 tabs chlorhexidine gluconate 0.12 % 15 ml mucous membrane BID #900 mL 10/30/24 mouthwash doxepin 25 mg capsule 25 mg PO BID #180 caps 10/30/24 gabapentin 300 mg capsule 300 mg PO BID #180 caps 10/30/24 pantoprazole 40 mg tablet,delayed 40 mg PO BID #60 tabs 10/30/24 release (Protonix) propranolol 20 mg tablet 20 mg PO BID #180 tabs 10/30/24 tiotropium bromide 1.25 2 puff inhalation DAILY #4 grams 10/30/24 mcg/actuation mist for inhalation (Spiriva Respimat) topiramate 50 mg tablet 50 mg PO HS #30 tabs 10/30/24 trazodone 50 mg tablet See Rx Instructions .Route 10/30/24 .COMPLEX #135 tabs hydroxyzine HCl 25 mg tablet 25 mg PO TID PRN anxiety #180 tabs 12/19/24 lisinopril 20 mg tablet 20 mg PO DAILY #90 tab-caps 12/19/24 naltrexone 50 mg tablet 100 mg (2 x 50 mg) PO DAILY #60 12/19/24 tabs Allergies Allergy/AdvReac Type Severity Reaction Status Date / Time hydromorphone (From Dilaudid) Allergy Severe Itching Verified 12/26/24 14:36 oxycodone AdvReac Unknown TERRIBLE Verified 12/26/24 14:36 DREAMS General Stated Complaint: ColdExpose ALISTAIR: 3 Exam Narrative Exam Narrative: 1.Const: Well-nourished, Well-developed, appearing stated age 2.Eyes: PERRL, no conjunctival injection, and symmetrical lids. 3.ENT: Atraumatic external nose and ears. Moist MM. Neck: Symmetric, trachea midline, No thyromegaly. 4.CVS: +S1/S2, Peripheral pulses 2+ and equal in all extremities. Brisk capillary refill in all extremities. 5.RESP: Unlabored respiratory effort. Clear to auscultation bilaterally. No wheezes rales or rhonchi 6.GI: Soft, Nontender/Nondistended, No hepatosplenomegaly. No guarding or rebound. 7.MSK: Normocephalic/Atraumatic, Extremities w/o deformity or ttp No cyanosis or clubbing, Normal movement of all extremities. Toes are slightly cool, but there is no cyanosis, no evidence of chilblains or frostbite. Brisk capillary refill is present in toes and fingers. 8.Skin: Warm, Dry. No rashes or lesions. 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 Sensation grossly intact, no focal neurologic deficits. 10.Psych: (AAO) x3. Appropriate mood and affect, mildly intoxicated. Course Vital Signs Vital signs: Vital Signs Temperature 37.1 C 12/26/24 14:32 Pulse 93 H 12/26/24 14:32 Respiratory Rate 20 12/26/24 14:32 Blood Pressure 132/75 12/26/24 14:32 Pulse Oximetry 92 12/26/24 14:32 Temperature 37.1 C 12/26/24 14:32 Pulse 93 H 12/26/24 14:32 Respiratory Rate 20 12/26/24 14:32 Blood Pressure 132/75 12/26/24 14:32 Blood Pressure Position Sitting 12/26/24 14:32 Pulse Oximetry 92 12/26/24 14:32 Oxygen Delivery Method Room Air 12/26/24 14:32 Oxygen Flow Rate 0 12/26/24 14:32 Medical Decision Making This is a 54-year-old female with a past medical history of previous pulmonary embolism not anticoagulated, Helicobacter pylori, GERD, depression, COPD, hyper pretension, spinal stenosis, history of pancreatic pseudocyst and chronic alcoholism, chronic kidney disease, previous anemia, who presents today for intoxication. Patient has been here in the emergency department 6 times in the last 2 weeks for alcohol intoxication. She has had multiple workups. Most recent visit was earlier this morning where she was seen and assessed by my colleague Dr. Navarrete. She was medically cleared at that time, she achieved sobriety and was discharged home. She then went out and smoked and drank. She was found at the carpool area, intoxicated in her vehicle. 911 was contacted, police and EMS arrived with [facility] and she was brought to the ER for evaluation and medical clearance. Patient denies any homicidal or suicidal ideations. She admits to drinking alcohol. She denies any drug use. She denies any chest pain or shortness of breath or vomiting or diarrhea. No other complaints at this time. Exam demonstrates well-appearing female who is mildly intoxicated, no evidence of frostbite, chilblains, or other evidence of thoracic abdominal respiratory or cardiac abnormality. No signs of trauma. The patient does have some feces noted on her feet, this was cleaned off and removed, patient was given socks. Mental health advocates are here, police are here, the patient is medically stable at this point and medically cleared. Patient is appropriate for discharge and transition to the inebriation [facility] for sobriety, she will be transitioned to the care of the police and the mental health advocates, and they will continue to provide outpatient resources to help her and her finding solutions for her chronic alcoholism. I have extensively reviewed the treatment plan and discharge instructions with the patient. I have addressed all patient concerns at this time. The patient was made aware of what symptoms to monitor for that would warrant a return to the emergency department. Discussed the plan with the patient, they demonstrate verbal understanding and agreement with our assessment and plan at this time. The documentation in this chart was dictated using Chatty dictation software. Please excuse any dictation errors. Quality:SDOH Health Related Social Needs: Health related social needs material hardship house/econ circumstance Health related social needs details homeless PFSH All Active Problems (Updated 12/26/24 @ 14:41 by Coy Rosa DO) Alcohol intoxication (Acute) Pancreatic pseudocyst (Acute) Meningioma (Acute) Altered mental status (Acute) Acidosis (Acute) Alcohol dependence (Acute) Anemia (Chronic) Alcohol intoxication in active alcoholic (Acute) CKD (chronic kidney disease) (Chronic) Anemia (Chronic) Depression with anxiety (Chronic) Abdominal fluid collection (Acute) Dyslipidemia (Acute) Abdominal pain, chronic, left upper quadrant (Acute) Chronic upper gastrointestinal bleeding (Chronic) Cyst and pseudocyst of pancreas (Acute) Anxiety (Chronic) DUB (dysfunctional uterine bleeding) (Acute) Impaired fasting blood sugar (Acute 08/01/05) Obesity, unspecified (Acute 05/31/11) Atypical squamous cells of undetermined significance (ASC-US) on cervical Pap smear (Acute 08/05/09) ASCUS 08/05/09; 05/31/2011 Spinal stenosis of lumbar region (Acute 01/11/10) LS spine surg; Dr Sebastian Walker Tobacco dependence (Acute 08/01/05) Medical History Pulmonary embolus Helicobacter pylori (H. pylori) Chronic pain (02/20/09) chronic tramadol rx, back pain, sciatica despite LS surg 2009. Depression (04/03/15) Sertaline in the past with good relief of sx but then developed intolerable adverse rxns (nausea, flushing) Started on venlafaxine 03/2015 PHQ9 score = 9, indicating mild depression 03/2015 Anemia COPD (chronic obstructive pulmonary disease) HTN (hypertension), benign Spinal stenosis Lumbar region Surgical History History of esophagogastroduodenoscopy (EGD) (~08/05/24) w bx. per report-negative for H.Pylori Internal injury, spleen, closed with IR embolization Back surgery L5-S1 decompression 2009 Family History Mother , lung cancer at age 50. No problems noted. Father , MVA No problems noted. Other Lung cancer Social History Smoking/Tobacco Use Status: Current every day Tobacco Type: cigarettes Smoking risk assessment performed?: Yes Alcohol Intake: current Alcohol Intake frequency: other Alcohol type: beer and hard liquor Drug use: Never Substance use type: does not use Details: Alcoholic Housing: homeless
[2024-12-27 21:49] VITALS: BP 132/75; PULSE 93; RESP 20; TEMP 37.1; O2SAT 92
[2024-12-27 21:50] VITALS: BP 132/75; PULSE 93; RESP 20; TEMP 37.1; O2SAT 92
== END 2024-12-27 21:49 | disposition home or self-care (01) ==
PROVIDERS: Emergency Provider Student in an Organized Health Care Education/Training Program
DX: F10.929 Alcohol use, unspecified with intoxication, unspecified (principal); Z59.87 Material hardship due to limited financial resources, not elsewhere classified
CPT/HCPCS: 99282; 99281